=== PATIENT | male | born 1930 | race Caucasian/White ===

== ENCOUNTER 2016-11-05 14:48 | Emergency (ER) | payer MEDICARE, BC ==
[2016-11-05 14:58] VITALS: BP 104/77
[2016-11-05] MEDS ORDERED: HYDROmorphone 0.5 MG/0.5 ML Syringe IVPUSH ONE ×2 (15:04→17:20)
[2016-11-05] MEDS ORDERED: Sodium Chloride 0.9% 10 ML Syringe FLUSH PRN (15:04)
--- NOTE | 2016-11-05 16:32 | EDM.PDOC ---
ED HPI GENERAL MEDICAL PROBLEM - General Chief Complaint: Lower Extremity Injury/Pain Stated Complaint: [facility] Time Seen by Provider: 11/05/16 14:55 Source of Information: Reports: Patient, EMS, RN Notes Reviewed - History of Present Illness INITIAL COMMENTS - FREE TEXT/NARRATIVE: 85-year-old gentleman is been brought in by ambulance with severe right hip pain. He was trying to negotiate sitting into a chair and apparently missed the chair, hit the floor with resultant severe right hip pain. He's been unable to move the leg or stand since the fall. He was given 50 g of fentanyl IV while in route to the ED. Is not having a lot of pain as long as he doesn't try move the leg. He has no chest pain or difficulty breathing. He denies headache or LOC. No major neck or back discomfort. Looking at his medications he is on eloquis. Also on aspirin. Family states he has had some anemia problems in the past but that when checked at the clinic just last week his blood level was "good". Right Hip Pain Score (Numeric/FACES): 8 - Related Data Allergies Allergy/AdvReac Type Severity Reaction Status Date / Time No Known Allergies Allergy Verified 11/05/16 14:59 Home Meds: Home Meds Albuterol Sulfate [Proair Respiclick] 2 puff INH Q6H PRN 04/13/15 [History] Aspirin [Low Dose Aspirin EC] 81 mg PO DAILY 04/13/15 [History] DULoxetine [Cymbalta] 60 mg PO DAILY 04/13/15 [History] Docusate Sodium [Colace] 100 mg PO BID 04/13/15 [History] Ferrous Sulfate 325 mg PO DAILY 04/13/15 [History] Pantoprazole [ProTONIX] 40 mg PO DAILY 04/13/15 [History] Vitamin E 1 tab PO DAILY 04/13/15 [History] glipiZIDE [Glucotrol XL] 10 mg PO BID 04/13/15 [History] Apixaban [Eliquis] 5 mg PO BID 09/08/15 [History] Propylene Glycol/Peg 400 [Systane 0.3-0.4% Eye Drops] 1 drop EYEBOTH DAILY 09/07 [History] Tamsulosin [Flomax] 0.4 mg PO DAILY 05/19/16 [History] Metoprolol Succinate 25 mg PO DAILY 01/30/16 [History] Acetaminophen 650 mg PO Q6H PRN 11/05/16 [History] Calcium Carbonate/Vitamin D3 [Calcium 500-Vit D3 200 Caplet] 1 tab PO DAILY [History] Diltiazem [Cardizem CD] 180 mg PO DAILY 11/05/16 [History] metFORMIN [Glucophage] 250 mg PO BIDMEALS 11/05/16 [History] Past Medical History HEENT History: Reports: Cataract, Impaired Vision Cardiovascular History: Reports: Arrhythmia, Hypertension, [place] Respiratory History: Reports: Asthma, Bronchitis, Recurrent, COPD, Pneumonia, Recurrent Gastrointestinal History: Reports: Hemorrhoids Genitourinary History: Reports: Renal Calculus Musculoskeletal History: Reports: Arthritis, Back Pain, Chronic Neurological History: Reports: CVA Psychiatric History: Reports: Depression Endocrine/Metabolic History: Reports: Diabetes, Type II Hematologic History: Reports: Anemia - Past Surgical History GI Surgical History: Reports: Cholecystectomy Social & Family History - Family History Family Medical History: Noncontributory - Tobacco Use Smoking Status *Q: Never Smoker Years of Tobacco use: 50 Packs/Tins Daily: 1 Used Tobacco, but Quit: Yes Month Tobacco Last Used: 1969 Second Hand Smoke Exposure: No - Caffeine Use Caffeine Use: Reports: None - Recreational Drug Use Recreational Drug Use: No - Living Situation & Occupation Living situation: Reports: Alone, Assisted Living Review of Systems - Review of Systems Review Of Systems: See Below Mouth/Throat: Reports: No Symptoms Respiratory: Denies: Shortness of Breath, Pleuritic Chest Pain Cardiovascular: Denies: Chest Pain GI/Abdominal: Denies: Abdominal Pain, Nausea, Vomiting Musculoskeletal: Reports: Joint Pain (Right hip) Skin: Reports: Bruising (He does have some areas of chronic bruising on his arms ) Neurological: Reports: No Symptoms ED EXAM, GENERAL - Physical Exam Exam: See Below General Appearance: Alert, Mild Distress Eye Exam: Bilateral Eye: PERRL Throat/Mouth: Normal Inspection, Normal Oropharynx Head: Atraumatic. No: Facial Swelling Neck: Supple, Full Range of Motion Respiratory/Chest: No Respiratory Distress, Lungs Clear, Normal Breath Sounds, Chest Non-Tender Cardiovascular: Irregularly Irregular GI/Abdominal: Soft, Non-Tender. No: Guarding Back Exam: No: CVA Tenderness (L), CVA Tenderness (R) Extremities: Leg Pain (Tender right hip), Limited Range of Motion (Severe pain with motion right lower extremity) Neurological: Alert, Oriented, No Motor/Sensory Deficits Skin Exam: Warm, Dry, Pallor EKG INTERPRETATION EKG Date: 11/05/16 Rhythm: A-Fib QRS: RBBB ST-T: Other (T-wave inversions V2) Course - Vital Signs Last Recorded V/S: Last Vital Signs Temp 97.1 F 11/05/16 14:53 Pulse 95 11/05/16 14:53 Resp 16 11/05/16 14:53 BP 104/77 11/05/16 14:53 Pulse Ox 96 11/05/16 14:53 - Orders/Labs/Meds Orders: Active Orders 24 hr Category Date Time Status EKG 12 Lead [EKG Documentation Completion] [RC] STAT Care 11/05/16 15:03 Active Peripheral IV Care [RC] . DIRECTED Care 11/05/16 15:04 Active Chest 1V Frontal [CR] Stat Exams 11/05/16 15:03 Taken Hip Min 2V or 3V w Pelvis Rt [CR] Stat Exams 11/05/16 15:05 Taken PATIENT RETYPE [BBK] Stat Lab 11/05/16 15:35 Results TYPE AND SCREEN [BBK] Stat Lab 11/05/16 15:35 Results Sodium Chloride 0.9% [Saline Flush] Med 11/05/16 15:04 Active 10 ml FLUSH ASDIRECTED PRN Peripheral IV Insertion Adult [OM.PC] Stat Oth 11/05/16 15:04 Ordered Medication Orders Sodium Chloride (Saline Flush) 10 ml FLUSH ASDIRECTED PRN PRN Reason: Keep Vein Open Last Admin: 11/05/16 15:20 Dose: 10 ml Labs: Laboratory Tests 11/05/16 11/05/16 11/05/16 Range/Units 15:35 15:35 15:35 WBC 11.66 H (4.23-9.07) K/mm3 RBC 2.52 L (4.63-6.08) M/mm3 Hgb 8.7 L (13.7-17.5) gm/L Hct 26.1 L (40.1-51.0) % MCV 103.6 H (79.0-92.2) fl MCH 34.5 H (25.7-32.2) pg MCHC 33.3 (32.2-35.5) g/dl RDW Std Deviation 72.4 H (35.1-43.9) fL Plt Count 228 (163-337) K/mm3 MPV 11.2 (9.4-12.3) fl Neut % (Auto) 74.8 H (34.0-67.9) % Lymph % (Auto) 17.6 L (21.8-53.1) % [place] % (Auto) 5.5 (5.3-12.2) % Eos % (Auto) 1.2 (0.8-7.0) Baso % (Auto) 0.3 (0.1-1.2) % Neut # (Auto) 8.72 H (1.78-5.38) K/mm3 Lymph # (Auto) 2.05 (1.32-3.57) K/mm3 [place] # (Auto) 0.64 (0.30-0.82) K/mm3 Eos # (Auto) 0.14 (0.04-0.54) K/mm3 Baso # (Auto) 0.04 (0.01-0.08) K/mm3 Manual Slide Review Abnormal smear PT 11.8 (8.0-13.0) SECONDS INR 1.08 APTT (22-36) SECONDS Sodium 138 (136-145) mEq/L Potassium 5.1 (3.5-5.1) mEq/L Chloride 104 (98-107) mEq/L Carbon Dioxide 29 (21-32) mEq/L Anion Gap 10.1 (5-15) BUN 16 (7-18) mg/dL Creatinine 1.2 (0.7-1.3) mg/dL Est Cr Clr Drug Dosing 41.35 mL/min Estimated GFR (MDRD) 58 (>60) mL/min BUN/Creatinine Ratio 13.3 L (14-18) Glucose 196 H (83-115) mg/dL Calcium 8.5 (8.5-10.1) mg/dL Total Bilirubin 1.0 (0.2-1.0) mg/dL AST 14 L (15-37) U/L ALT 17 (16-63) U/L Alkaline Phosphatase 65 (46-116) U/L Total Protein 6.2 L (6.4-8.2) g/dl Albumin 3.9 (3.4-5.0) g/dl Globulin 2.3 gm/dL Albumin/Globulin Ratio 1.7 (1-2) Blood Type Gel Antibody Screen 11/05/16 11/05/16 Range/Units 15:35 15:35 WBC (4.23-9.07) K/mm3 RBC (4.63-6.08) M/mm3 Hgb (13.7-17.5) gm/L Hct (40.1-51.0) % MCV (79.0-92.2) fl MCH (25.7-32.2) pg MCHC (32.2-35.5) g/dl RDW Std Deviation (35.1-43.9) fL Plt Count (163-337) K/mm3 MPV (9.4-12.3) fl Neut % (Auto) (34.0-67.9) % Lymph % (Auto) (21.8-53.1) % [place] % (Auto) (5.3-12.2) % Eos % (Auto) (0.8-7.0) Baso % (Auto) (0.1-1.2) % Neut # (Auto) (1.78-5.38) K/mm3 Lymph # (Auto) (1.32-3.57) K/mm3 [place] # (Auto) (0.30-0.82) K/mm3 Eos # (Auto) (0.04-0.54) K/mm3 Baso # (Auto) (0.01-0.08) K/mm3 Manual Slide Review PT (8.0-13.0) SECONDS INR APTT 24 (22-36) SECONDS Sodium (136-145) mEq/L Potassium (3.5-5.1) mEq/L Chloride (98-107) mEq/L Carbon Dioxide (21-32) mEq/L Anion Gap (5-15) BUN (7-18) mg/dL Creatinine (0.7-1.3) mg/dL Est Cr Clr Drug Dosing mL/min Estimated GFR (MDRD) (>60) mL/min BUN/Creatinine Ratio (14-18) Glucose (83-115) mg/dL Calcium (8.5-10.1) mg/dL Total Bilirubin (0.2-1.0) mg/dL AST (15-37) U/L ALT (16-63) U/L Alkaline Phosphatase (46-116) U/L Total Protein (6.4-8.2) g/dl Albumin (3.4-5.0) g/dl Globulin gm/dL Albumin/Globulin Ratio (1-2) Blood Type A POSITIVE Gel Antibody Screen Negative Meds: Medications Generic Name Dose Route Start Last Admin Trade Name Freq PRN Reason Stop Dose Admin Sodium Chloride 10 ml 11/05/16 15:04 11/05/16 15:20 Saline Flush FLUSH 10 ml ASDIRECTED PRN Administration Keep Vein Open Discontinued Medications Generic Name Dose Route Start Last Admin Trade Name Freq PRN Reason Stop Dose Admin Hydromorphone HCl 0.25 mg 11/05/16 15:04 11/05/16 15:20 Dilaudid IVPUSH 11/05/16 15:05 0.25 mg ONETIME ONE Administration Hydromorphone HCl 0.25 mg 11/05/16 17:20 11/05/16 17:36 Dilaudid IVPUSH 11/05/16 17:21 0.25 mg ONETIME ONE Administration Sodium Chloride 500 mls @ 999 mls/hr 11/05/16 17:00 11/05/16 17:06 Normal Saline IV 11/05/16 17:30 999 mls/hr .BOLUS ONE Administration - Re-Assessments/Exams Free Text/Narrative Re-Assessment/Exam: 11/05/16 16:39 X-rays do show fracture of the right hip, intertrochanteric, comminuted. Hemoglobin has come back at 8.7. He is on eloquis, for his chronic atrial fibrillation. Family as noted states he has had some anemia problems in the past. Unclear at this time what the etiology of his anemia is. 17:00. I have discussed this with Dr. River, or Orthopedist. He is able and willing to do the surgery here. Our hospitalist electronics technology department chair has discussed with family his multiple medical problems will create more challenge from a medical standpoint. Of concern is the combination of severe anemia, chronic atrial fib on chronic blood thinner therapy. Because we do not have multispecialty services available here at this hospital family has chosen they would prefer to have this done at one of the [facility]. When asked which hospital the patient is choosing [facility] because [facility]". 11/05/16 17:48 Departure - Departure Time of Disposition: 16:42 Disposition: Admitted As Inpatient 67 Condition: Serious Clinical Impression: Intertrochanteric fracture, hip Atrial fibrillation Qualifiers: Atrial fibrillation type: chronic Qualified Code(s): I48.2 - Chronic atrial fibrillation Anemia Qualifiers: Anemia type: unspecified type Qualified Code(s): D64.9 - Anemia, unspecified - Discharge Information Referrals: Juma Turner MD [Primary Care Provider] - Forms: ED Department Discharge - My Orders Last 24 Hours: My Active Orders 11/05/16 15:03 EKG 12 Lead [EKG Documentation Completion] [RC] STAT Chest 1V Frontal [CR] Stat 11/05/16 15:04 Peripheral IV Care [RC] . DIRECTED Sodium Chloride 0.9% [Saline Flush] 10 ml FLUSH ASDIRECTED PRN Peripheral IV Insertion Adult [OM.PC] Stat 11/05/16 15:05 Hip Min 2V or 3V w Pelvis Rt [CR] Stat 11/05/16 15:35 PATIENT RETYPE [BBK] Stat TYPE AND SCREEN [BBK] Stat - Assessment/Plan Last 24 Hours: My Active Orders 11/05/16 15:03 EKG 12 Lead [EKG Documentation Completion] [RC] STAT Chest 1V Frontal [CR] Stat 11/05/16 15:04 Peripheral IV Care [RC] . DIRECTED Sodium Chloride 0.9% [Saline Flush] 10 ml FLUSH ASDIRECTED PRN Peripheral IV Insertion Adult [OM.PC] Stat 11/05/16 15:05 Hip Min 2V or 3V w Pelvis Rt [CR] Stat 11/05/16 15:35 PATIENT RETYPE [BBK] Stat TYPE AND SCREEN [BBK] Stat
[2016-11-05] MEDS ORDERED: Sodium Chloride 0.9% 500 ML IV ONE (17:00)
[2016-11-05] MEDS ORDERED: Ondansetron 4 MG/2 ML SDV IVPUSH ONE (18:05)
[2016-11-05] MEDS ORDERED: Ondansetron 4 MG/2 ML SDV ONE (18:08)
--- NOTE | 2016-11-06 08:06 | CR ---
Pelvis and right hip: AP view of the pelvis was obtained as well as AP and frog-leg lateral views of the right hip. Comparison: No previous pelvis or hip exam. Angulated intertrochanteric fracture is seen. Degenerative change is partially visualized within the lower lumbar spine. Bony structures are osteopenic. Vascular calcification is noted. Surgical clips are seen within the right pelvis overlying the right iliac wing. Impression: 1. Angulated intertrochanteric fracture within the right hip. 2. Other incidental findings. Diagnostic code #3
--- NOTE | 2016-11-06 08:06 | CR ---
Chest: Frontal view of the chest was obtained. Comparison: Previous chest x-ray of 09/08/15. Heart size is normal. Tortuous thoracic aorta is seen. Nodular density is noted within the left base. Lungs otherwise are clear. Bony structures are grossly intact. Impression: 1. Nodule within the left base possibly due to nodular scarring. 2. Nothing acute is appreciated. Diagnostic code #2
== END 2016-11-05 18:20 ==
LOC: JD.ED 14:48
DX: S72.141A Displaced intertrochanteric fracture of right femur, initial encounter for closed fracture (principal); I48.2 Chronic atrial fibrillation; D64.9 Anemia, unspecified; I10 Essential (primary) hypertension; I25.2 Old myocardial infarction; J45.909 Unspecified asthma, uncomplicated; J44.9 Chronic obstructive pulmonary disease, unspecified; Z87.01 Personal history of pneumonia (recurrent); E11.9 Type 2 diabetes mellitus without complications; Z90.49 Acquired absence of other specified parts of digestive tract; Z79.82 Long term (current) use of aspirin; Z79.899 Other long term (current) drug therapy; Z79.84 Long term (current) use of oral hypoglycemic drugs; W01.190A Fall on same level from slipping, tripping and stumbling with subsequent striking against furniture, initial encounter
CPT/HCPCS: 36415; 71010; 73502; 80053; 85025; 85610; 85730; 86850; 86900; 86901; 93005; 96374; 96375; 96376; 99285; J1170; J2405; J7040; J7050; 99284

== ENCOUNTER 2016-12-08 13:22 | Inpatient (IN) | payer MEDICARE, BC ==
[2016-12-08] MEDS ORDERED: Sodium Chloride 0.9% 10 ML Syringe FLUSH PRN (13:51)
[2016-12-08] MEDS ORDERED: Levofloxacin/Dextrose 5%-Water 750 MG in Premix Bag 1 BAG IV ONE (15:42)
--- NOTE | 2016-12-08 15:44 | EDM.PDOC ---
ED HPI GENERAL MEDICAL PROBLEM - General Chief Complaint: Respiratory Problem Stated Complaint: [facility] Time Seen by Provider: 12/08/16 13:31 Source of Information: Reports: Patient History Limitations: Reports: No Limitations - History of Present Illness INITIAL COMMENTS - FREE TEXT/NARRATIVE: The patient presents with a cough and shortness of breath from [facility]. He fell last month and had a hip fracture that was repaired at [facility] in [place]. He has been at [facility] after that. He has been anemic and he has required transfusions since admission. The last one was on . He has been coughing for a few days and he has been more short of breath. When EMS got to [facility] his oxygen saturations were 88% on room air. They did give him a breathing treatment and it improved slightly. He has no abdominal pain, nausea, vomiting, fever or chills. Onset: Gradual Duration: Day(s): (2) Severity: Moderate Improves with: Reports: None Worsens with: Reports: None Associated Symptoms: Reports: Cough, cough w sputum, Shortness of Breath. Denies: Chest Pain, Fever/Chills Right Leg Pain Score (Numeric/FACES): 8 - Related Data Allergies Allergy/AdvReac Type Severity Reaction Status Date / Time No Known Allergies Allergy Verified 12/08/16 13:41 Home Meds: Home Meds Albuterol Sulfate [Proair Respiclick] 2 puff INH TID 04/13/15 [History] Aspirin [Low Dose Aspirin EC] 81 mg PO DAILY 04/13/15 [History] DULoxetine [Cymbalta] 60 mg PO DAILY 04/13/15 [History] Docusate Sodium [Colace] 200 mg PO BID 04/13/15 [History] Ferrous Sulfate 324 mg PO DAILY 04/13/15 [History] Pantoprazole [ProTONIX] 40 mg PO DAILY 04/13/15 [History] Vitamin E 1 tab PO DAILY 04/13/15 [History] glipiZIDE [Glucotrol XL] 5 mg PO ACBREAKFAST 04/13/15 [History] Propylene Glycol/Peg 400 [Systane 0.3-0.4% Eye Drops] 1 drop EYEBOTH BID [History] Tamsulosin [Flomax] 0.4 mg PO DAILY 09/08/15 [History] Metoprolol Succinate 25 mg PO DAILY 01/30/16 [History] Acetaminophen 650 mg PO Q6H PRN 11/05/16 [History] Diltiazem [Cardizem CD] 180 mg PO DAILY 11/05/16 [History] metFORMIN [Glucophage] 250 mg PO BIDMEALS 11/05/16 [History] traMADol [Ultram] 50 mg PO Q6H PRN 12/06/16 [History] Apixaban [Eliquis] 5 mg PO BID 12/08/16 [History] Gabapentin [Neurontin] 300 mg PO DAILY 12/08/16 [History] Polyethylene Glycol 3350 [MiraLAX] 17 gm PO DAILY 12/08/16 [History] traMADol [Ultram] 50 mg PO Q8HR 12/08/16 [History] Past Medical History HEENT History: Reports: Cataract, Impaired Vision Cardiovascular History: Reports: Afib, Angina, Arrhythmia, Hypertension, [place], Other (See Below) Other Cardiovascular History: Nonrheumatic aortic valve disorder, atherosclerotic heart disease Respiratory History: Reports: Asthma, Bronchitis, Recurrent, COPD, Pneumonia, Recurrent Gastrointestinal History: Reports: GERD, Hemorrhoids Genitourinary History: Reports: BPH, Renal Calculus, Renal Disease Musculoskeletal History: Reports: Arthritis, Back Pain, Chronic, Fracture, Osteoarthritis Neurological History: Reports: CVA Psychiatric History: Reports: Depression Endocrine/Metabolic History: Reports: Diabetes, Type II Hematologic History: Reports: Anemia, Iron Deficiency - Past Surgical History GI Surgical History: Reports: Appendectomy, Cholecystectomy Musculoskeletal Surgical History: Reports: Other (See Below) Other Musculoskeletal Surgeries/Procedures:: femur fx surgery Social & Family History - Family History Family Medical History: Noncontributory - Tobacco Use Smoking Status *Q: Former Smoker Years of Tobacco use: 40 Packs/Tins Daily: 1 Used Tobacco, but Quit: Yes Month Tobacco Last Used: 1979 Second Hand Smoke Exposure: No - Caffeine Use Caffeine Use: Reports: Coffee, Soda, Other Other Caffeine Use: diet soda - Recreational Drug Use Recreational Drug Use: No - Living Situation & Occupation Living situation: Reports: Alone, Assisted Living ED ROS GENERAL - Review of Systems Review Of Systems: See Below Constitutional: Reports: No Symptoms HEENT: Reports: No Symptoms Respiratory: Reports: Shortness of Breath, Cough, Sputum Cardiovascular: Reports: No Symptoms Endocrine: Reports: No Symptoms GI/Abdominal: Reports: No Symptoms : Reports: No Symptoms Musculoskeletal: Reports: No Symptoms Skin: Reports: No Symptoms ED EXAM, GENERAL - Physical Exam Exam: See Below Exam Limited By: No Limitations General Appearance: Alert, No Apparent Distress Ears: Normal External Exam Nose: Normal Inspection Head: Atraumatic, Normocephalic Neck: Normal Inspection Respiratory/Chest: No Respiratory Distress, Rhonchi Cardiovascular: Regular Rate, Rhythm, No Murmur GI/Abdominal: Soft, Non-Tender, No Organomegaly, No Mass Rectal (Males) Exam: Heme - Stool Back Exam: Normal Inspection Extremities: Other (Bilateral lower leg edema) Neurological: Alert, Oriented, No Motor/Sensory Deficits Course - Vital Signs Last Recorded V/S: Last Vital Signs Temp 97.4 F 12/08/16 13:33 Pulse 120 H 12/08/16 13:33 Resp 26 H 12/08/16 13:33 BP 118/79 12/08/16 13:33 Pulse Ox 94 L 12/08/16 15:10 - Orders/Labs/Meds Orders: Active Orders 24 hr Category Date Time Status Cardiac Monitoring [RC] . DIRECTED Care 12/08/16 13:51 Active Oxygen Therapy [RC] PRN Care 12/08/16 13:51 Active Peripheral IV Care [RC] . DIRECTED Care 12/08/16 13:53 Active Chest 1V Frontal [CR] Stat Exams 12/08/16 14:12 Taken CULTURE BLOOD [BC] Stat Lab 12/08/16 14:10 Received CULTURE BLOOD [BC] Stat Lab 12/08/16 14:25 Received UA W/MICROSCOPIC [URIN] Stat Lab 12/08/16 13:51 Uncollected Levofloxacin/Dextrose 5%-Water [Levaquin in D5W 750 MG/ Med 12/08/16 15:42 Active 150 ML] 750 mg Premix Bag 1 bag IV ONETIME Sodium Chloride 0.9% [Saline Flush] Med 12/08/16 13:51 Active 10 ml FLUSH ASDIRECTED PRN Blood Culture x2 Reflex Set [OM.PC] Stat Oth 12/08/16 13:54 Ordered Peripheral IV Insertion Adult [OM.PC] Stat Oth 12/08/16 13:51 Ordered Medication Orders Levofloxacin/Dextrose 750 mg/ (Premix) 150 mls @ 100 mls/hr IV ONETIME ONE Stop: 12/08/16 17:11 Sodium Chloride (Saline Flush) 10 ml FLUSH ASDIRECTED PRN PRN Reason: Keep Vein Open Labs: Laboratory Tests 12/08/16 12/08/16 Range/Units 14:10 14:10 WBC 10.79 H (4.23-9.07) K/mm3 RBC 3.63 L (4.63-6.08) M/mm3 Hgb 11.0 L (13.7-17.5) gm/L Hct 34.2 L (40.1-51.0) % MCV 94.2 H (79.0-92.2) fl MCH 30.3 (25.7-32.2) pg MCHC 32.2 (32.2-35.5) g/dl RDW Std Deviation 70.4 H (35.1-43.9) fL Plt Count 176 (163-337) K/mm3 MPV 10.7 (9.4-12.3) fl Neut % (Auto) 70.8 H (34.0-67.9) % Lymph % (Auto) 18.8 L (21.8-53.1) % [place] % (Auto) 8.7 (5.3-12.2) % Eos % (Auto) 0.9 (0.8-7.0) Baso % (Auto) 0.3 (0.1-1.2) % Neut # (Auto) 7.64 H (1.78-5.38) K/mm3 Lymph # (Auto) 2.03 (1.32-3.57) K/mm3 [place] # (Auto) 0.94 H (0.30-0.82) K/mm3 Eos # (Auto) 0.10 (0.04-0.54) K/mm3 Baso # (Auto) 0.03 (0.01-0.08) K/mm3 Sodium 136 (136-145) mEq/L Potassium 4.2 (3.5-5.1) mEq/L Chloride 99 (98-107) mEq/L Carbon Dioxide 29 (21-32) mEq/L Anion Gap 12.2 (5-15) BUN 19 H (7-18) mg/dL Creatinine 1.1 (0.7-1.3) mg/dL Est Cr Clr Drug Dosing 43.48 mL/min Estimated GFR (MDRD) > 60 (>60) mL/min BUN/Creatinine Ratio 17.3 (14-18) Glucose 172 H (83-115) mg/dL Calcium 9.0 (8.5-10.1) mg/dL Total Bilirubin 2.1 H (0.2-1.0) mg/dL AST 18 (15-37) U/L ALT 16 (16-63) U/L Alkaline Phosphatase 127 H (46-116) U/L Troponin I < 0.017 (0.00-0.056) ng/mL [id number] Pept 1956 H (0-450) pg/mL Total Protein 6.6 (6.4-8.2) g/dl Albumin 3.5 (3.4-5.0) g/dl Globulin 3.1 gm/dL Albumin/Globulin Ratio 1.1 (1-2) Meds: Medications Generic Name Dose Route Start Last Admin Trade Name Freq PRN Reason Stop Dose Admin Levofloxacin/Dextrose 750 mg/ 150 mls @ 100 mls/hr 12/08/16 15:42 Premix IV 12/08/16 17:11 ONETIME ONE Sodium Chloride 10 ml 12/08/16 13:51 Saline Flush FLUSH ASDIRECTED PRN Keep Vein Open - Re-Assessments/Exams Free Text/Narrative Re-Assessment/Exam: 12/08/16 15:58 I ordered oxygen, labs, blood cultures and CXR. 12/08/16 16:01 His CXR shows an infiltrate in the RML. His WBC was elevated at 10.79. His glucose was elevated at 172. His total bili was 2.1. His alk phos is elevated at 127. His troponin is negative. His BNP was elevated at 1956. I ordered levaquin at 750g IV. I feel he needs to be admitted. I called Dr Martinez and she agreed to the admission. She also wanted zosyn so I put that order in. Departure - Departure Time of Disposition: 16:05 Disposition: Admitted As Inpatient 67 Clinical Impression: Hypoxia Pneumonia Qualifiers: Pneumonia type: due to unspecified organism Laterality: right Lung location: middle lobe of lung Qualified Code(s): J18.9 - Pneumonia, unspecified organism Anemia Qualifiers: Anemia type: unspecified type Qualified Code(s): D64.9 - Anemia, unspecified - Discharge Information Forms: ED Department Discharge - My Orders Last 24 Hours: My Active Orders 12/08/16 13:51 Cardiac Monitoring [RC] . DIRECTED Oxygen Therapy [RC] PRN UA W/MICROSCOPIC [URIN] Stat Sodium Chloride 0.9% [Saline Flush] 10 ml FLUSH ASDIRECTED PRN Peripheral IV Insertion Adult [OM.PC] Stat 12/08/16 13:53 Peripheral IV Care [RC] . DIRECTED 12/08/16 13:54 Blood Culture x2 Reflex Set [OM.PC] Stat 12/08/16 14:10 CULTURE BLOOD [BC] Stat 12/08/16 14:12 Chest 1V Frontal [CR] Stat 12/08/16 14:25 CULTURE BLOOD [BC] Stat 12/08/16 15:42 Levofloxacin/Dextrose 5%-Water [Levaquin in D5W 750 MG/150 ML] 750 mg Premix Bag 1 bag IV ONETIME - Assessment/Plan Last 24 Hours: My Active Orders 12/08/16 13:51 Cardiac Monitoring [RC] . DIRECTED Oxygen Therapy [RC] PRN UA W/MICROSCOPIC [URIN] Stat Sodium Chloride 0.9% [Saline Flush] 10 ml FLUSH ASDIRECTED PRN Peripheral IV Insertion Adult [OM.PC] Stat 12/08/16 13:53 Peripheral IV Care [RC] . DIRECTED 12/08/16 13:54 Blood Culture x2 Reflex Set [OM.PC] Stat 12/08/16 14:10 CULTURE BLOOD [BC] Stat 12/08/16 14:12 Chest 1V Frontal [CR] Stat 12/08/16 14:25 CULTURE BLOOD [BC] Stat 12/08/16 15:42 Levofloxacin/Dextrose 5%-Water [Levaquin in D5W 750 MG/150 ML] 750 mg Premix Bag 1 bag IV ONETIME
[2016-12-08] MEDS ORDERED: Piperacillin/Tazobactam 4.5 GM in Sodium Chloride 0.9% 100 ML IV ONE (15:51)
[2016-12-08] MEDS ORDERED: Levalbuterol HCl 1.25 MG/3 ML Neb NEB PRN (16:53)
[2016-12-08] MEDS ORDERED: Albuterol 0.083% 2.5 MG/3 ML Neb Soln NEB PRN (16:54)
[2016-12-08] MEDS ORDERED: 50% Dextrose in Water 50 ML Syringe IVPUSH PRN (17:05)
[2016-12-08] MEDS ORDERED: Furosemide 20 MG/2 ML VIAL IVPUSH ONE (17:15)
--- NOTE | 2016-12-08 17:18 | PCM.HP ---
H&P History of Present Illness - General Date of Service: 12/08/16 Source of Information: Patient, Family, Provider History Limitations: Reports: No Limitations - History of Present Illness Initial Comments - Free Text/Narative: 85 year old male with SOB associated with productive cough. SOB when lying flat , denies PND. Sedentary has had recent RLE surgery which was broken in three places. The procedure was performed in [place], he required three units of PRBCs after the surgery. Recently had two additional units of PRBCs this week. His last colonoscopy was performed over five years ago. CXR documents a RML, will be admitted and treated for HCAP/CHF and a request for an anemia work up will also be made. Onset of Symptoms: Reports: Gradual Duration of Symptoms: Reports: Day(s):, Getting Worse Location: Reports: Chest Improves with: Reports: Medication Worsens with: Reports: None Associated Symptoms: Reports: cough w sputum, Shortness of Breath Right Leg Pain Score (Numeric/FACES): 8 - Related Data Allergies/Adverse Reactions: Allergies Allergy/AdvReac Type Severity Reaction Status Date / Time No Known Allergies Allergy Verified 12/08/16 13:41 Home Medications: Home Meds Albuterol Sulfate [Proair Respiclick] 2 puff INH TID 04/13/15 [History] Aspirin [Low Dose Aspirin EC] 81 mg PO DAILY 04/13/15 [History] DULoxetine [Cymbalta] 60 mg PO DAILY 04/13/15 [History] Docusate Sodium [Colace] 200 mg PO BID 04/13/15 [History] Ferrous Sulfate 324 mg PO DAILY 04/13/15 [History] Pantoprazole [ProTONIX] 40 mg PO DAILY 04/13/15 [History] Vitamin E 1 tab PO DAILY 04/13/15 [History] glipiZIDE [Glucotrol XL] 5 mg PO ACBREAKFAST 04/13/15 [History] Propylene Glycol/Peg 400 [Systane 0.3-0.4% Eye Drops] 1 drop EYEBOTH BID [History] Tamsulosin [Flomax] 0.4 mg PO DAILY 09/08/15 [History] Metoprolol Succinate 25 mg PO DAILY 01/30/16 [History] Acetaminophen 650 mg PO Q6H PRN 11/05/16 [History] Diltiazem [Cardizem CD] 180 mg PO DAILY 11/05/16 [History] metFORMIN [Glucophage] 250 mg PO BIDMEALS 11/05/16 [History] traMADol [Ultram] 50 mg PO Q6H PRN 12/06/16 [History] Apixaban [Eliquis] 5 mg PO BID 12/08/16 [History] Gabapentin [Neurontin] 300 mg PO DAILY 12/08/16 [History] Polyethylene Glycol 3350 [MiraLAX] 17 gm PO DAILY 12/08/16 [History] traMADol [Ultram] 50 mg PO Q8HR 12/08/16 [History] Past Medical History HEENT History: Reports: Cataract, Impaired Vision Cardiovascular History: Reports: Afib, Angina, Arrhythmia, Hypertension, [place], Other (See Below) Other Cardiovascular History: Nonrheumatic aortic valve disorder, atherosclerotic heart disease Respiratory History: Reports: Asthma, Bronchitis, Recurrent, COPD, Pneumonia, Recurrent Gastrointestinal History: Reports: GERD, Hemorrhoids Genitourinary History: Reports: BPH, Renal Calculus, Renal Disease Musculoskeletal History: Reports: Arthritis, Back Pain, Chronic, Fracture, Osteoarthritis Neurological History: Reports: CVA Psychiatric History: Reports: Depression Endocrine/Metabolic History: Reports: Diabetes, Type II Hematologic History: Reports: Anemia, Iron Deficiency - Past Surgical History GI Surgical History: Reports: Appendectomy, Cholecystectomy Musculoskeletal Surgical History: Reports: Other (See Below) Other Musculoskeletal Surgeries/Procedures:: femur fx surgery Social & Family History - Family History Family Medical History: Noncontributory - Tobacco Use Smoking Status *Q: Former Smoker Years of Tobacco use: 40 Packs/Tins Daily: 1 Used Tobacco, but Quit: Yes Month Tobacco Last Used: 1979 Second Hand Smoke Exposure: No - Caffeine Use Caffeine Use: Reports: Coffee, Soda, Other Other Caffeine Use: diet soda - Recreational Drug Use Recreational Drug Use: No - Living Situation & Occupation Living situation: Reports: Alone, Assisted Living H&P Review of Systems - Review of Systems: Review Of Systems: See Below General: Reports: Malaise, Weakness, Fatigue HEENT: Reports: No Symptoms Pulmonary: Reports: Shortness of Breath, Wheezing, Cough, Sputum Cardiovascular: Reports: Lightheadedness Gastrointestinal: Reports: No Symptoms Genitourinary: Reports: No Symptoms Musculoskeletal: Reports: No Symptoms Skin: Reports: No Symptoms Psychiatric: Reports: No Symptoms Neurological: Reports: No Symptoms Hematologic/Lymphatic: Reports: No Symptoms Immunologic: Reports: No Symptoms Exam - Exam Exam: See Below - Vital Signs Vital Signs: Last Vital Signs Temp 36.3 C 12/08/16 13:33 Pulse 120 H 12/08/16 13:33 Resp 26 H 12/08/16 13:33 BP 118/79 12/08/16 13:33 Pulse Ox 88 L 12/08/16 15:56 Weight: 91.081 kg - Exam Quality Assessment: Supplemental Oxygen, DVT Prophylaxis General: Alert, Oriented, Cooperative HEENT: Conjunctiva Clear, Nares Patent, Normal Nasal Septum, Posterior Pharynx Clear, Pupils Equal, Pupils Reactive Neck: Supple, Trachea Midline Lungs: Decreased Breath Sounds, Wheezing Cardiovascular: Regular Rate, Irregular Rhythm GI/Abdominal Exam: Normal Bowel Sounds, Soft, Non-Tender, No Organomegaly, No Distention (Male) Exam: Deferred Rectal (Males) Exam: Deferred Back Exam: Normal Inspection Extremities: Normal Inspection, Non-Tender, Pedal Edema Skin: Warm, Dry, Intact Neurological: Cranial Nerves Intact, Normal Speech Neuro Extensive - Mental Status: Alert, Oriented x3, Normal Mood/Affect, Normal Cognition, Memory Intact Neuro Extensive - Motor, Sensory, Reflexes: CN II-XII Intact Psychiatric: Alert, Normal Affect, Normal Mood - Patient Data Lab Results Last 24 hrs: Laboratory Results - last 24 hr 12/08/16 Range/Units 16:20 Urine Color Dark yellow (Yellow) Urine Appearance Slt cloudy H (Clear) Urine pH 5.5 (5.0-8.0) Ur Specific [place] 1.025 (1.005-1.030) Urine Protein 1+ H (Negative) Urine Glucose (UA) Negative (Negative) Urine Ketones Negative (Negative) Urine Occult Blood Negative (Negative) Urine Nitrite Negative (Negative) Urine Bilirubin 2+ H (Negative) Urine Urobilinogen >=8.0 H (0.2-1.0) Ur Leukocyte Esterase Negative (Negative) Urine RBC 0-5 (0-5) /hpf Urine WBC 0-5 (0-5) /hpf Ur Epithelial Cells 0-5 (0-5) /hpf Calcium Oxalate Crystal Rare H (NONE) Urine Bacteria Rare (FEW) /hpf Urine Mucus Not seen (FEW) /hpf Result Diagrams: 12/08/16 14:10 12/08/16 14:10 *Q Meaningful Use (ADM) - VTE *Q VTE Criteria *Q: - Stroke *Q Stroke Criteria *Q: - AMI *Q AMI Criteria *Q: - Problem List (1) Hypertension SNOMED Code(s): 25259709 ICD Code: I10 - ESSENTIAL (PRIMARY) HYPERTENSION Status: Acute Current Visit: Yes (2) CAD (coronary artery disease) SNOMED Code(s): 37933608 ICD Code: I25.10 - ATHSCL HEART DISEASE OF [place] CORONARY ARTERY W/O ANG PCTRS Status: Acute Current Visit: Yes (3) Aortic valve disorder SNOMED Code(s): 8431397 ICD Code: I35.9 - NONRHEUMATIC AORTIC VALVE DISORDER, UNSPECIFIED Status: Acute Current Visit: Yes (4) Diabetes mellitus SNOMED Code(s): 14999202 ICD Code: E11.9 - TYPE 2 DIABETES MELLITUS WITHOUT COMPLICATIONS Status: Acute Current Visit: Yes (5) CVA (cerebral vascular accident) SNOMED Code(s): 433781802 ICD Code: I63.9 - CEREBRAL INFARCTION, UNSPECIFIED Status: Acute Current Visit: Yes (6) BPH (benign prostatic hyperplasia) SNOMED Code(s): 943759669, 757294122 ICD Code: N40.0 - BENIGN PROSTATIC HYPERPLASIA WITHOUT LOWER URINRY TRACT SYMP Status: Acute Current Visit: Yes (7) Anemia SNOMED Code(s): 379517712 ICD Code: D64.9 - ANEMIA, UNSPECIFIED Status: Acute Current Visit: Yes (8) Hypoxia SNOMED Code(s): 590145544, 557431467 ICD Code: R09.02 - HYPOXEMIA Status: Acute Current Visit: Yes (9) Pneumonia SNOMED Code(s): 990244300 ICD Code: J18.9 - PNEUMONIA, UNSPECIFIED ORGANISM Status: Acute Current Visit: Yes Qualifiers: Pneumonia type: due to unspecified organism (10) Atrial fibrillation SNOMED Code(s): 73023747 ICD Code: I48.91 - UNSPECIFIED ATRIAL FIBRILLATION Status: Acute Current Visit: No Qualifiers: Atrial fibrillation type: chronic Qualified Code(s): I48.2 - Chronic atrial fibrillation (11) COPD (chronic obstructive pulmonary disease) SNOMED Code(s): 12256717 ICD Code: J44.9 - CHRONIC OBSTRUCTIVE PULMONARY DISEASE, UNSPECIFIED Status : Chronic Priority: Medium Current Visit: No Qualifiers: Emphysema type: unspecified Problem List Initiated/Reviewed/Updated: Yes Orders Last 24hrs: Active Orders 24 hr Category Date Time Status Antiembolic Devices [RC] PER UNIT ROUTINE Care 12/08/16 16:45 Ordered Blood Glucose Check, Bedside [RC] QIDACANDBED Care 12/08/16 17:05 Ordered Notify Provider Consults [RC] ASDIRECTED Care 12/08/16 16:57 Ordered RT Aerosol Therapy [RC] ASDIRECTED Care 12/08/16 16:54 Ordered Vital Signs [RC] PER UNIT ROUTINE Care 12/08/16 16:45 Ordered Consult to Case Management [CONS] Routine Cons 12/08/16 17:02 Ordered Consult to Occupational Therapy [OT Evaluation and Cons 12/10/16 09:00 Ordered Treatment] [CONS] Routine Consult to Physical Therapy [PT Evaluation and Cons 12/10/16 11:00 Ordered Treatment] [CONS] Routine Consult to Physician [CONS] Routine Cons 12/08/16 16:56 Ordered Consistent Carbohydrate Diet [DIET] Diet 12/08/16 Dinner Ordered CXR [Chest 2V] [CR] Routine Exams 12/10/16 08:00 Ordered BMP [BASIC METABOLIC PANEL,BMP] [CHEM] DAILY Lab 12/09/16 05:00 Ordered BMP [BASIC METABOLIC PANEL,BMP] [CHEM] DAILY Lab 12/10/16 05:00 Ordered BMP [BASIC METABOLIC PANEL,BMP] [CHEM] DAILY Lab 12/11/16 05:00 Ordered BMP [BASIC METABOLIC PANEL,BMP] [CHEM] DAILY Lab 12/12/16 05:00 Ordered CBC WITH AUTO DIFF [HEME] DAILY Lab 12/09/16 05:00 Ordered CBC WITH AUTO DIFF [HEME] DAILY Lab 12/10/16 05:00 Ordered CBC WITH AUTO DIFF [HEME] DAILY Lab 12/11/16 05:00 Ordered CBC WITH AUTO DIFF [HEME] DAILY Lab 12/12/16 05:00 Ordered CRP [C-REACTIVE PROTEIN] [CHEM] DAILY Lab 12/09/16 05:00 Ordered CRP [C-REACTIVE PROTEIN] [CHEM] DAILY Lab 12/10/16 05:00 Ordered CRP [C-REACTIVE PROTEIN] [CHEM] DAILY Lab 12/11/16 05:00 Ordered CRP [C-REACTIVE PROTEIN] [CHEM] DAILY Lab 12/12/16 05:00 Ordered LACTIC ACID [CHEM] Routine Lab 12/09/16 05:00 Ordered MAGNESIUM [CHEM] DAILY Lab 12/09/16 05:00 Ordered MAGNESIUM [CHEM] DAILY Lab 12/10/16 05:00 Ordered MAGNESIUM [CHEM] DAILY Lab 12/11/16 05:00 Ordered MAGNESIUM [CHEM] DAILY Lab 12/12/16 05:00 Ordered METH-RESIST S.AUR,MRSA BY PCR [MOLEC] Routine Lab 12/08/16 16:55 Ordered PRO B-TYPE NATRIUR PEPT,BNPPRO [CHEM] Routine Lab 12/10/16 05:00 Ordered Acetaminophen [Tylenol] Med 12/08/16 16:48 Ordered 650 mg PO Q6H PRN Albuterol [Proventil Neb Soln] Med 12/08/16 16:54 Ordered 2.5 mg NEB Q4HRRT PRN Apixaban [Eliquis] Med 12/08/16 21:00 Ordered 2.5 mg PO BID Aspirin [Halfprin] Med 12/09/16 09:00 Ordered 81 mg PO DAILY DULoxetine Med 12/09/16 09:00 Ordered 60 mg PO DAILY Dextrose 50% in Water Med 12/08/16 17:05 Ordered 50 ml IVPUSH ASDIRECTED PRN Diltiazem [Cardizem CD] Med 12/09/16 09:00 Ordered 180 mg PO DAILY Docusate Sodium [Colace] Med 12/08/16 21:00 Ordered 200 mg PO BID Ferrous Sulfate Med 12/09/16 09:00 Ordered 324 mg PO DAILY Furosemide [Lasix] Med 12/08/16 16:53 Once 20 mg IVPUSH NOW ONE Gabapentin [Neurontin] Med 12/09/16 09:00 Ordered 300 mg PO DAILY Insulin Aspart [NovoLOG] Med 12/08/16 22:00 Ordered See Protocol SUBCUT QIDACANDBED Levalbuterol HCl [Xopenex] Med 12/08/16 16:53 Ordered 1.25 mg NEB QID PRN Levofloxacin/Dextrose 5%-Water [Levaquin in D5W 750 MG/ Med 12/09/16 16:00 Ordered 150 ML] 750 mg Premix Bag 1 bag IV Q24H Piperacillin/Tazobactam [Zosyn] 4.5 gm Med 12/08/16 23:00 Ordered Sodium Chloride 0.9% [Normal Saline] 100 ml IV Q8H WALKER Hose [Antiembolic Hose] [OM.PC] Routine Oth 12/08/16 16:45 Ordered Code Status [Resuscitation Status] Routine Resus Stat 12/08/16 16:45 Ordered Medication Orders Acetaminophen (Tylenol) 650 mg PO Q6H PRN PRN Reason: Pain Albuterol (Proventil Neb Soln) 2.5 mg NEB Q4HRRT PRN PRN Reason: Shortness of Breath Apixaban (Eliquis) 2.5 mg PO BID [facility] Aspirin (Halfprin) 81 mg PO DAILY [facility] Diltiazem HCl (Cardizem Cd) 180 mg PO DAILY [facility] Docusate Sodium (Colace) 200 mg PO BID [facility] Duloxetine HCl (Cymbalta) 60 mg PO DAILY [facility] Ferrous Sulfate (Ferrous Sulfate) 325 mg PO DAILY [facility] Furosemide (Lasix) 20 mg IVPUSH NOW ONE Stop: 12/08/16 17:16 Gabapentin (Neurontin) 300 mg PO DAILY [facility] Levofloxacin/Dextrose 750 mg/ (Premix) 150 mls @ 100 mls/hr IV ONETIME ONE Stop: 12/08/16 17:11 Last Admin: 12/08/16 17:00 Dose: 100 mls/hr Levofloxacin/Dextrose 750 mg/ (Premix) 150 mls @ 100 mls/hr IV Q24H [facility] Piperacillin Sod/Tazobactam (Sod 4.5 gm/ Sodium Chloride) 100 mls @ 25 mls/hr IV Q8H [facility] Levalbuterol HCl (Xopenex) 1.25 mg NEB QID PRN PRN Reason: Shortness of Breath Sodium Chloride (Saline Flush) 10 ml FLUSH ASDIRECTED PRN PRN Reason: Keep Vein Open Assessment/Plan Comment:: Impression: Healthcare Acquired PNA; RML; hypoxia RLE ortho procedure 11/06/16 in [place] Anemia, unspecified; 6 units PRBCs in 4 weeks; last transfusion 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
[2016-12-08] MEDS: Apixaban 5 MG Tab PO SCH (23:25)
[2016-12-08] MEDS: Docusate Sodium 100 MG Cap PO SCH (23:26)
[2016-12-08] MEDS: Insulin Aspart 100 Units/ML 3 ML Pen SUBCUT SCH (23:26)
[2016-12-08] MEDS: Piperacillin/Tazobactam 4.5 GM in Sodium Chloride 0.9% 100 ML IV SCH (23:27)
[2016-12-08] MEDS: Acetaminophen 325 MG Tab PO PRN (23:40)
[2016-12-09] MEDS: Insulin Aspart 100 Units/ML 3 ML Pen SUBCUT SCH ×4 (07:35→21:52)
[2016-12-09] MEDS ORDERED: Magnesium Sulfate/Water 2 GM in Premix Bag 1 BAG IV ONE (07:56)
--- NOTE | 2016-12-09 08:29 | PCM.PN ---
- General Info Date of Service: 12/09/16 Admission Dx/Problem (Free Text): HCAP Subjective Update: Follow Up Functional Status: Reports: Pain Controlled, Tolerating Diet, Ambulating, Urinating, New Symptoms (His coughing up more phlegm) - Review of Systems General: Denies: Fever, Chills HEENT: Reports: No Symptoms Pulmonary: Denies: Shortness of Breath Cardiovascular: Denies: Chest Pain Gastrointestinal: Denies: Abdominal Pain, Nausea, Vomiting Genitourinary: Reports: No Symptoms Musculoskeletal: Reports: No Symptoms Skin: Denies: Pruritis, Rash Neurological: Denies: Confusion, Difficulty Walking, Weakness, Gait Disturbance Psychiatric: Denies: Confusion, Anxiety, Hallucinations Systems Review Comment:: No significant overnight issues. He is feels about the same "so-so". He is now on RA sating at 92-95%. He has no new complaints. - Patient Data Vitals - Most Recent: Last Vital Signs Temp 36.4 C 12/09/16 02:34 Pulse 96 12/09/16 02:34 Resp 16 12/09/16 02:34 BP 112/78 12/09/16 02:34 Pulse Ox 98 12/09/16 08:22 Weight - Most Recent: 91.535 kg I&O - Last 24 Hours: Intake & Output 12/08/16 12/09/16 12/09/16 22:59 06:59 14:59 Intake Total 120 200 Balance 120 200 Lab Results Last 24 Hours: Laboratory Results - last 24 hr 12/08/16 12/08/16 12/08/16 Range/Units 16:20 17:00 17:45 WBC (4.23-9.07) K/mm3 RBC (4.63-6.08) M/mm3 Hgb (13.7-17.5) gm/L Hct (40.1-51.0) % MCV (79.0-92.2) fl MCH (25.7-32.2) pg MCHC (32.2-35.5) g/dl RDW Std Deviation (35.1-43.9) fL Plt Count (163-337) K/mm3 MPV (9.4-12.3) fl Neut % (Auto) (34.0-67.9) % Lymph % (Auto) (21.8-53.1) % [place] % (Auto) (5.3-12.2) % Eos % (Auto) (0.8-7.0) Baso % (Auto) (0.1-1.2) % Neut # (Auto) (1.78-5.38) K/mm3 Lymph # (Auto) (1.32-3.57) K/mm3 [place] # (Auto) (0.30-0.82) K/mm3 Eos # (Auto) (0.04-0.54) K/mm3 Baso # (Auto) (0.01-0.08) K/mm3 Sodium (136-145) mEq/L Potassium (3.5-5.1) mEq/L Chloride (98-107) mEq/L Carbon Dioxide (21-32) mEq/L Anion Gap (5-15) BUN (7-18) mg/dL Creatinine (0.7-1.3) mg/dL Est Cr Clr Drug Dosing mL/min Estimated GFR (MDRD) (>60) mL/min BUN/Creatinine Ratio (14-18) Glucose (83-115) mg/dL POC Glucose 118 H (83-110) mg/dL Lactic Acid (0.4-2.0) mmol/L Calcium (8.5-10.1) mg/dL Magnesium (1.8-2.4) mg/dl C-Reactive Protein (<1.0) mg/dL Urine Color Dark yellow (Yellow) Urine Appearance Slt cloudy H (Clear) Urine pH 5.5 (5.0-8.0) Ur Specific [place] 1.025 (1.005-1.030) Urine Protein 1+ H (Negative) Urine Glucose (UA) Negative (Negative) Urine Ketones Negative (Negative) Urine Occult Blood Negative (Negative) Urine Nitrite Negative (Negative) Urine Bilirubin 2+ H (Negative) Urine Urobilinogen >=8.0 H (0.2-1.0) Ur Leukocyte Esterase Negative (Negative) Urine RBC 0-5 (0-5) /hpf Urine WBC 0-5 (0-5) /hpf Ur Epithelial Cells 0-5 (0-5) /hpf Calcium Oxalate Crystal Rare H (NONE) Urine Bacteria Rare (FEW) /hpf Urine Mucus Not seen (FEW) /hpf MRSA (PCR) Negative 12/08/16 12/09/1612/09/17 Range/Units 21:02 05:55 06:39 WBC 7.97 (4.23-9.07) K/mm3 RBC 3.17 L (4.63-6.08) M/mm3 Hgb 9.7 L (13.7-17.5) gm/L Hct 29.9 L (40.1-51.0) % MCV 94.3 H (79.0-92.2) fl MCH 30.6 (25.7-32.2) pg MCHC 32.4 (32.2-35.5) g/dl RDW Std Deviation 68.2 H (35.1-43.9) fL Plt Count 151 L (163-337) K/mm3 MPV 10.2 (9.4-12.3) fl Neut % (Auto) 68.0 H (34.0-67.9) % Lymph % (Auto) 19.2 L (21.8-53.1) % [place] % (Auto) 10.3 (5.3-12.2) % Eos % (Auto) 2.0 (0.8-7.0) Baso % (Auto) 0.1 (0.1-1.2) % Neut # (Auto) 5.42 H (1.78-5.38) K/mm3 Lymph # (Auto) 1.53 (1.32-3.57) K/mm3 [place] # (Auto) 0.82 (0.30-0.82) K/mm3 Eos # (Auto) 0.16 (0.04-0.54) K/mm3 Baso # (Auto) 0.01 (0.01-0.08) K/mm3 Sodium (136-145) mEq/L Potassium (3.5-5.1) mEq/L Chloride (98-107) mEq/L Carbon Dioxide (21-32) mEq/L Anion Gap (5-15) BUN (7-18) mg/dL Creatinine (0.7-1.3) mg/dL Est Cr Clr Drug Dosing mL/min Estimated GFR (MDRD) (>60) mL/min BUN/Creatinine Ratio (14-18) Glucose (83-115) mg/dL POC Glucose 128 H 99 (83-110) mg/dL Lactic Acid (0.4-2.0) mmol/L Calcium (8.5-10.1) mg/dL Magnesium (1.8-2.4) mg/dl C-Reactive Protein (<1.0) mg/dL Urine Color (Yellow) Urine Appearance (Clear) Urine pH (5.0-8.0) Ur Specific [place] (1.005-1.030) Urine Protein (Negative) Urine Glucose (UA) (Negative) Urine Ketones (Negative) Urine Occult Blood (Negative) Urine Nitrite (Negative) Urine Bilirubin (Negative) Urine Urobilinogen (0.2-1.0) Ur Leukocyte Esterase (Negative) Urine RBC (0-5) /hpf Urine WBC (0-5) /hpf Ur Epithelial Cells (0-5) /hpf Calcium Oxalate Crystal (NONE) Urine Bacteria (FEW) /hpf Urine Mucus (FEW) /hpf MRSA (PCR) 12/09/16 12/09/16 Range/Units 06:39 06:39 WBC (4.23-9.07) K/mm3 RBC (4.63-6.08) M/mm3 Hgb (13.7-17.5) gm/L Hct (40.1-51.0) % MCV (79.0-92.2) fl MCH (25.7-32.2) pg MCHC (32.2-35.5) g/dl RDW Std Deviation (35.1-43.9) fL Plt Count (163-337) K/mm3 MPV (9.4-12.3) fl Neut % (Auto) (34.0-67.9) % Lymph % (Auto) (21.8-53.1) % [place] % (Auto) (5.3-12.2) % Eos % (Auto) (0.8-7.0) Baso % (Auto) (0.1-1.2) % Neut # (Auto) (1.78-5.38) K/mm3 Lymph # (Auto) (1.32-3.57) K/mm3 [place] # (Auto) (0.30-0.82) K/mm3 Eos # (Auto) (0.04-0.54) K/mm3 Baso # (Auto) (0.01-0.08) K/mm3 Sodium 136 (136-145) mEq/L Potassium 3.8 (3.5-5.1) mEq/L Chloride 99 (98-107) mEq/L Carbon Dioxide 30 (21-32) mEq/L Anion Gap 10.8 (5-15) BUN 17 (7-18) mg/dL Creatinine 1.0 (0.7-1.3) mg/dL Est Cr Clr Drug Dosing 47.83 mL/min Estimated GFR (MDRD) > 60 (>60) mL/min BUN/Creatinine Ratio 17.0 (14-18) Glucose 101 (83-115) mg/dL POC Glucose (83-110) mg/dL Lactic Acid 1.0 (0.4-2.0) mmol/L Calcium 8.5 (8.5-10.1) mg/dL Magnesium 1.7 L (1.8-2.4) mg/dl C-Reactive Protein 8.7 H* (<1.0) mg/dL Urine Color (Yellow) Urine Appearance (Clear) Urine pH (5.0-8.0) Ur Specific [place] (1.005-1.030) Urine Protein (Negative) Urine Glucose (UA) (Negative) Urine Ketones (Negative) Urine Occult Blood (Negative) Urine Nitrite (Negative) Urine Bilirubin (Negative) Urine Urobilinogen (0.2-1.0) Ur Leukocyte Esterase (Negative) Urine RBC (0-5) /hpf Urine WBC (0-5) /hpf Ur Epithelial Cells (0-5) /hpf Calcium Oxalate Crystal (NONE) Urine Bacteria (FEW) /hpf Urine Mucus (FEW) /hpf MRSA (PCR) Med Orders - Current: Current Medications Acetaminophen (Tylenol) 650 mg PO Q6H PRN PRN Reason: Pain Last Admin: 12/08/16 23:40 Dose: 650 mg Albuterol (Proventil Neb Soln) 2.5 mg NEB Q4HRRT PRN PRN Reason: Shortness of Breath Apixaban (Eliquis) 2.5 mg PO BID [facility] Last Admin: 12/08/16 23:25 Dose: 2.5 mg Aspirin (Halfprin) 81 mg PO DAILY [facility] Dextrose/Water (Dextrose 50% In Water) 50 ml IVPUSH ASDIRECTED PRN PRN Reason: Hypotension Diltiazem HCl (Cardizem Cd) 180 mg PO DAILY [facility] Docusate Sodium (Colace) 200 mg PO BID [facility] Last Admin: 12/08/16 23:26 Dose: 200 mg Duloxetine HCl (Cymbalta) 60 mg PO DAILY [facility] Ferrous Sulfate (Ferrous Sulfate) 325 mg PO DAILY [facility] Gabapentin (Neurontin) 300 mg PO DAILY [facility] Levofloxacin/Dextrose 750 mg/ (Premix) 150 mls @ 100 mls/hr IV Q24H [facility] Piperacillin Sod/Tazobactam (Sod 4.5 gm/ Sodium Chloride) 100 mls @ 25 mls/hr IV Q8H [facility] Last Admin: 12/08/16 23:27 Dose: 25 mls/hr Magnesium Sulfate 2 gm/ Premix 50 mls @ 25 mls/hr IV ONETIME ONE Stop: 12/09/16 09:55 Insulin Aspart (Novolog) 0 unit SUBCUT QIDACANDBED [facility] PRN Reason: Protocol Last Admin: 12/09/16 07:35 Dose: Not Given Levalbuterol HCl (Xopenex) 1.25 mg NEB QID PRN PRN Reason: Shortness of Breath Non-Formulary Medication (Albuterol Sulfate [Proair Respiclick]) 2 puff INH TID [facility] Sodium Chloride (Saline Flush) 10 ml FLUSH ASDIRECTED PRN PRN Reason: Keep Vein Open Discontinued Medications Furosemide (Lasix) 20 mg IVPUSH NOW ONE Stop: 12/08/16 17:16 Last Admin: 12/08/16 17:48 Dose: 20 mg Levofloxacin/Dextrose 750 mg/ (Premix) 150 mls @ 100 mls/hr IV ONETIME ONE Stop: 12/08/16 17:11 Last Admin: 12/08/16 17:00 Dose: 100 mls/hr Piperacillin Sod/Tazobactam (Sod 4.5 gm/ Sodium Chloride) 100 mls @ 200 mls/hr IV ONETIME ONE Stop: 12/08/16 16:20 Last Admin: 12/08/16 16:08 Dose: 200 mls/hr - Exam Quality Assessment: No: Supplemental Oxygen General: Alert, Oriented, Cooperative, No Acute Distress HEENT: Pupils Equal, Pupils Reactive, EOMI, Mucous Membr. Moist/[place] Neck: Supple, Trachea Midline Lungs: Normal Respiratory Effort, Decreased Breath Sounds, Rhonchi Cardiovascular: Irregular Rhythm GI/Abdominal Exam: Normal Bowel Sounds, Soft, Non-Tender, No Organomegaly, No Distention, No Abnormal Bruit, No Mass (Male) Exam: Deferred Back Exam: Normal Inspection, Decreased Range of Motion Extremities: Normal Inspection, Normal Range of Motion, Non-Tender, No Pedal Edema, Normal Capillary Refill Peripheral Pulses: 2+: Dorsalis Pedis (L), Dorsalis Pedis (R) Skin: Warm, Dry, Intact Neurological: No New Focal Deficit Psy/Mental Status: Alert, Normal Affect, Normal Mood - Problem List Review Problem List Initiated/Reviewed/Updated: Yes - My Orders Last 24 Hours: My Active Orders 12/09/16 09:00 Albuterol Sulfate [Proair Respiclick] 2 puff INH TID - Plan Plan:: Impression: Acute: Healthcare Acquired PNA - RML infiltrate - No longer hypoxic - He is coughing up more phlegm - Mycoplasma negative - CRP 8.7 - Continue IV Zosyn/Levaquin - Sputum Cx/Sx and Strep pneumo Ag test - FV as directed - Mucinex 1200 mg po BID - Follow up CXR in AM Anemia, Unspecified - Hgb 9.7 - 6 units PRBCs in 4 weeks - Risk Factor: He is on ASA and Eliquis +/- GERD - GS consulted for planned endoscopy - Can safely hold eliquis and keep ASA on; resume eliquis once procedure is done Query HF, likely Systolic Chronic: CAD/[place] Valvular Heart Disease COPD HTN HLD GERD Diabetes Mellitus Atrial Fib with RBBB on Eliquis, HR is controlled RLE ortho procedure 11/06/16 in [place] Plan: He is clinically stable Continue current treatment Routine AM Labs Follow daily labs, keep Hgb>9 General Surgery consult Obtain recent 2D echo DVT/GI prophylaxis Continue /PT/OT SW/CM for d/c planning
[2016-12-09] MEDS: Piperacillin/Tazobactam 4.5 GM in Sodium Chloride 0.9% 100 ML IV SCH ×3 (08:35→23:52)
[2016-12-09] MEDS: Apixaban 5 MG Tab PO SCH (08:43)
[2016-12-09] MEDS: Aspirin 81 MG Tab.EC PO SCH (08:44)
[2016-12-09] MEDS: Diltiazem 180 MG Cap.CD PO SCH (08:44)
[2016-12-09] MEDS: Gabapentin 300 MG Cap PO SCH (08:44)
[2016-12-09] MEDS: Docusate Sodium 100 MG Cap PO SCH ×2 (08:45→20:24)
[2016-12-09] MEDS: DULoxetine 30 MG Cap PO SCH (08:45)
[2016-12-09] MEDS: Ferrous Sulfate 325 MG Tab PO SCH (08:45)
[2016-12-09] MEDS: Albuterol 6.7 GM Inhaler INH SCH ×3 (08:54→21:12)
[2016-12-09] MEDS ORDERED: hydrALAZINE 20 MG/ML SDV IVPUSH PRN (09:33)
[2016-12-09] MEDS: guaiFENesin 600 MG Tab.ER PO SCH ×3 (12:21→20:25)
[2016-12-09] MEDS: Metoprolol Tartrate 5 MG/5 ML SDV IVPUSH PRN ×2 (13:53→21:46)
--- NOTE | 2016-12-09 14:24 | PCM.CONSN ---
- General Info Date of Service: 12/09/16 - Patient Data Vitals - Most Recent: Last Vital Signs Temp 98.2 F 12/09/16 13:02 Pulse 117 H 12/09/16 13:53 Resp 18 12/09/16 13:02 BP 110/61 12/09/16 13:53 Pulse Ox 92 L 12/09/16 13:05 Weight - Most Recent: 91.535 kg I&O - Last 24 Hours: Intake & Output 12/08/16 12/09/16 12/09/16 23:59 07:59 15:59 Intake Total 120 200 220 Balance 120 200 220 Lab Results Last 24 Hours: Laboratory Results - last 24 hr 12/08/16 12/08/16 12/08/16 Range/Units 16:20 17:00 17:45 WBC (4.23-9.07) K/mm3 RBC (4.63-6.08) M/mm3 Hgb (13.7-17.5) gm/L Hct (40.1-51.0) % MCV (79.0-92.2) fl MCH (25.7-32.2) pg MCHC (32.2-35.5) g/dl RDW Std Deviation (35.1-43.9) fL Plt Count (163-337) K/mm3 MPV (9.4-12.3) fl Neut % (Auto) (34.0-67.9) % Lymph % (Auto) (21.8-53.1) % Pepin % (Auto) (5.3-12.2) % Eos % (Auto) (0.8-7.0) Baso % (Auto) (0.1-1.2) % Neut # (Auto) (1.78-5.38) K/mm3 Lymph # (Auto) (1.32-3.57) K/mm3 Pepin # (Auto) (0.30-0.82) K/mm3 Eos # (Auto) (0.04-0.54) K/mm3 Baso # (Auto) (0.01-0.08) K/mm3 Sodium (136-145) mEq/L Potassium (3.5-5.1) mEq/L Chloride (98-107) mEq/L Carbon Dioxide (21-32) mEq/L Anion Gap (5-15) BUN (7-18) mg/dL Creatinine (0.7-1.3) mg/dL Est Cr Clr Drug Dosing mL/min Estimated GFR (MDRD) (>60) mL/min BUN/Creatinine Ratio (14-18) Glucose (83-115) mg/dL POC Glucose 118 H (83-110) mg/dL Lactic Acid (0.4-2.0) mmol/L Calcium (8.5-10.1) mg/dL Magnesium (1.8-2.4) mg/dl C-Reactive Protein (<1.0) mg/dL Urine Color Dark yellow (Yellow) Urine Appearance Slt cloudy H (Clear) Urine pH 5.5 (5.0-8.0) Ur Specific [place] 1.025 (1.005-1.030) Urine Protein 1+ H (Negative) Urine Glucose (UA) Negative (Negative) Urine Ketones Negative (Negative) Urine Occult Blood Negative (Negative) Urine Nitrite Negative (Negative) Urine Bilirubin 2+ H (Negative) Urine Urobilinogen >=8.0 H (0.2-1.0) Ur Leukocyte Esterase Negative (Negative) Urine RBC 0-5 (0-5) /hpf Urine WBC 0-5 (0-5) /hpf Ur Epithelial Cells 0-5 (0-5) /hpf Calcium Oxalate Crystal Rare H (NONE) Urine Bacteria Rare (FEW) /hpf Urine Mucus Not seen (FEW) /hpf Mycoplasma pneumon IgM (NEGATIVE) MRSA (PCR) Negative 12/08/16 12/09/16 12/09/16 Range/Units 21:02 05:55 06:39 WBC 7.97 (4.23-9.07) K/mm3 RBC 3.17 L (4.63-6.08) M/mm3 Hgb 9.7 L (13.7-17.5) gm/L Hct 29.9 L (40.1-51.0) % MCV 94.3 H (79.0-92.2) fl MCH 30.6 (25.7-32.2) pg MCHC 32.4 (32.2-35.5) g/dl RDW Std Deviation 68.2 H (35.1-43.9) fL Plt Count 151 L (163-337) K/mm3 MPV 10.2 (9.4-12.3) fl Neut % (Auto) 68.0 H (34.0-67.9) % Lymph % (Auto) 19.2 L (21.8-53.1) % Pepin % (Auto) 10.3 (5.3-12.2) % Eos % (Auto) 2.0 (0.8-7.0) Baso % (Auto) 0.1 (0.1-1.2) % Neut # (Auto) 5.42 H (1.78-5.38) K/mm3 Lymph # (Auto) 1.53 (1.32-3.57) K/mm3 Pepin # (Auto) 0.82 (0.30-0.82) K/mm3 Eos # (Auto) 0.16 (0.04-0.54) K/mm3 Baso # (Auto) 0.01 (0.01-0.08) K/mm3 Sodium (136-145) mEq/L Potassium (3.5-5.1) mEq/L Chloride (98-107) mEq/L Carbon Dioxide (21-32) mEq/L Anion Gap (5-15) BUN (7-18) mg/dL Creatinine (0.7-1.3) mg/dL Est Cr Clr Drug Dosing mL/min Estimated GFR (MDRD) (>60) mL/min BUN/Creatinine Ratio (14-18) Glucose (83-115) mg/dL POC Glucose 128 H 99 (83-110) mg/dL Lactic Acid (0.4-2.0) mmol/L Calcium (8.5-10.1) mg/dL Magnesium (1.8-2.4) mg/dl C-Reactive Protein (<1.0) mg/dL Urine Color (Yellow) Urine Appearance (Clear) Urine pH (5.0-8.0) Ur Specific [place] (1.005-1.030) Urine Protein (Negative) Urine Glucose (UA) (Negative) Urine Ketones (Negative) Urine Occult Blood (Negative) Urine Nitrite (Negative) Urine Bilirubin (Negative) Urine Urobilinogen (0.2-1.0) Ur Leukocyte Esterase (Negative) Urine RBC (0-5) /hpf Urine WBC (0-5) /hpf Ur Epithelial Cells (0-5) /hpf Calcium Oxalate Crystal (NONE) Urine Bacteria (FEW) /hpf Urine Mucus (FEW) /hpf Mycoplasma pneumon IgM (NEGATIVE) MRSA (PCR) 12/09/16 12/09/16 Range/Units 06:39 06:39 WBC (4.23-9.07) K/mm3 RBC (4.63-6.08) M/mm3 Hgb (13.7-17.5) gm/L Hct (40.1-51.0) % MCV (79.0-92.2) fl MCH (25.7-32.2) pg MCHC (32.2-35.5) g/dl RDW Std Deviation (35.1-43.9) fL Plt Count (163-337) K/mm3 MPV (9.4-12.3) fl Neut % (Auto) (34.0-67.9) % Lymph % (Auto) (21.8-53.1) % Pepin % (Auto) (5.3-12.2) % Eos % (Auto) (0.8-7.0) Baso % (Auto) (0.1-1.2) % Neut # (Auto) (1.78-5.38) K/mm3 Lymph # (Auto) (1.32-3.57) K/mm3 Pepin # (Auto) (0.30-0.82) K/mm3 Eos # (Auto) (0.04-0.54) K/mm3 Baso # (Auto) (0.01-0.08) K/mm3 Sodium 136 (136-145) mEq/L Potassium 3.8 (3.5-5.1) mEq/L Chloride 99 (98-107) mEq/L Carbon Dioxide 30 (21-32) mEq/L Anion Gap 10.8 (5-15) BUN 17 (7-18) mg/dL Creatinine 1.0 (0.7-1.3) mg/dL Est Cr Clr Drug Dosing 47.83 mL/min Estimated GFR (MDRD) > 60 (>60) mL/min BUN/Creatinine Ratio 17.0 (14-18) Glucose 101 (83-115) mg/dL POC Glucose (83-110) mg/dL Lactic Acid 1.0 (0.4-2.0) mmol/L Calcium 8.5 (8.5-10.1) mg/dL Magnesium 1.7 L (1.8-2.4) mg/dl C-Reactive Protein 8.7 H* (<1.0) mg/dL Urine Color (Yellow) Urine Appearance (Clear) Urine pH (5.0-8.0) Ur Specific [place] (1.005-1.030) Urine Protein (Negative) Urine Glucose (UA) (Negative) Urine Ketones (Negative) Urine Occult Blood (Negative) Urine Nitrite (Negative) Urine Bilirubin (Negative) Urine Urobilinogen (0.2-1.0) Ur Leukocyte Esterase (Negative) Urine RBC (0-5) /hpf Urine WBC (0-5) /hpf Ur Epithelial Cells (0-5) /hpf Calcium Oxalate Crystal (NONE) Urine Bacteria (FEW) /hpf Urine Mucus (FEW) /hpf Mycoplasma pneumon IgM Negative (NEGATIVE) MRSA (PCR) Med Orders - Current: Current Medications Acetaminophen (Tylenol) 650 mg PO Q6H PRN PRN Reason: Pain Last Admin: 12/08/16 23:40 Dose: 650 mg Albuterol (Proventil Neb Soln) 2.5 mg NEB Q4HRRT PRN PRN Reason: Shortness of Breath Albuterol (Proventil Hfa) 0 gm INH TIDRT [facility] Last Admin: 12/09/16 13:04 Dose: 2 puff Apixaban (Eliquis) 2.5 mg PO BID [facility] Last Admin: 12/09/16 08:43 Dose: 2.5 mg Aspirin (Halfprin) 81 mg PO DAILY [facility] Last Admin: 12/09/16 08:44 Dose: 81 mg Dextrose/Water (Dextrose 50% In Water) 50 ml IVPUSH ASDIRECTED PRN PRN Reason: Hypotension Diltiazem HCl (Cardizem Cd) 180 mg PO DAILY [facility] Last Admin: 12/09/16 08:44 Dose: 180 mg Docusate Sodium (Colace) 200 mg PO BID [facility] Last Admin: 12/09/16 08:45 Dose: 200 mg Duloxetine HCl (Cymbalta) 60 mg PO DAILY [facility] Last Admin: 12/09/16 08:45 Dose: 60 mg Ferrous Sulfate (Ferrous Sulfate) 325 mg PO DAILY [facility] Last Admin: 12/09/16 08:45 Dose: 325 mg Gabapentin (Neurontin) 300 mg PO DAILY [facility] Last Admin: 12/09/16 08:44 Dose: 300 mg Guaifenesin (Mucinex) 1,200 mg PO BID [facility] Last Admin: 12/09/16 12:21 Dose: 1,200 mg Hydralazine HCl (Apresoline) 10 mg IVPUSH Q4H PRN PRN Reason: Hypertension Levofloxacin/Dextrose 750 mg/ (Premix) 150 mls @ 100 mls/hr IV Q24H [facility] Piperacillin Sod/Tazobactam (Sod 4.5 gm/ Sodium Chloride) 100 mls @ 25 mls/hr IV Q8H [facility] Last Admin: 12/09/16 08:35 Dose: 25 mls/hr Insulin Aspart (Novolog) 0 unit SUBCUT QIDACANDBED MALA PRN Reason: Protocol Last Admin: 12/09/16 12:29 Dose: Not Given Metoprolol Tartrate (Lopressor) 5 mg IVPUSH Q4H PRN PRN Reason: Tachycardia Last Admin: 12/09/16 13:53 Dose: 5 mg Sodium Chloride (Saline Flush) 10 ml FLUSH ASDIRECTED PRN PRN Reason: Keep Vein Open Discontinued Medications Furosemide (Lasix) 20 mg IVPUSH NOW ONE Stop: 12/08/16 17:16 Last Admin: 12/08/16 17:48 Dose: 20 mg Levofloxacin/Dextrose 750 mg/ (Premix) 150 mls @ 100 mls/hr IV ONETIME ONE Stop: 12/08/16 17:11 Last Admin: 12/08/16 17:00 Dose: 100 mls/hr Piperacillin Sod/Tazobactam (Sod 4.5 gm/ Sodium Chloride) 100 mls @ 200 mls/hr IV ONETIME ONE Stop: 12/08/16 16:20 Last Admin: 12/08/16 16:08 Dose: 200 mls/hr Magnesium Sulfate 2 gm/ Premix 50 mls @ 25 mls/hr IV ONETIME ONE Stop: 12/09/16 09:55 Last Admin: 12/09/16 08:36 Dose: 25 mls/hr Levalbuterol HCl (Xopenex) 1.25 mg NEB QID PRN PRN Reason: Shortness of Breath Consult PN Assessment/Plan Procedures: Procedures AIRWAY INHALATION TREATMENT (01/30/16) ASSAY OF FOLIC ACID RBC (01/30/16) ASSAY OF IRON (01/30/16) ASSAY OF MAGNESIUM (01/30/16) ASSAY OF NATRIURETIC PEPTIDE (01/30/16) ASSAY OF PHOSPHORUS (04/13/15) ASSAY OF TRANSFERRIN (01/30/16) ASSAY OF TROPONIN QUANT (09/08/15) BLOOD CULTURE FOR BACTERIA (04/13/15) BLOOD TYPING SEROLOGIC ABO (11/05/16) BLOOD TYPING SEROLOGIC RH(D) (11/05/16) C-REACTIVE PROTEIN (01/30/16) CHEST X-RAY 1 VIEW FRONTAL (11/05/16) COMPLETE CBC W/AUTO DIFF WBC (11/05/16) COMPREHEN METABOLIC PANEL (11/05/16) CT ABD & PELV W/CONTRAST (01/30/16) CT HEAD/BRAIN W/O DYE (12/06/16) ELECTROCARDIOGRAM TRACING (11/05/16) EMERGENCY DEPT VISIT (11/05/16) EMERGENCY DEPT VISIT (09/08/15) EMERGENCY DEPT VISIT (04/13/15) EVALUATE PT USE OF INHALER (01/30/16) GAIT TRAINING THERAPY (01/30/16) GLUCOSE BLOOD TEST (01/30/16) HYDRATE IV INFUSION ADD-ON (01/30/16) MEASURE BLOOD OXYGEN LEVEL (01/30/16) METABOLIC PANEL TOTAL CA (01/30/16) MICROBE SUSCEPTIBLE PROSPER (04/13/15) MR-STAPH DNA AMP PROBE (01/30/16) OT EVALUATION (01/30/16) POLYSOM 6/> YRS 4/> NAZ (12/10/15) PROTHROMBIN TIME (11/05/16) PT EVALUATION (01/30/16) RBC ANTIBODY SCREEN (11/05/16) ROUTINE VENIPUNCTURE (11/05/16) SELF CARE MNGMENT TRAINING (01/30/16) THER/PROPH/DIAG INJ IV PUSH (11/05/16) THERAPEUTIC ACTIVITIES (01/30/16) THERAPEUTIC EXERCISES (01/30/16) THROMBOPLASTIN TIME PARTIAL (11/05/16) TISSUE EXAM BY PATHOLOGIST (01/30/16) TISSUE EXAM BY PATHOLOGIST (11/16/14) TX/PRO/DX INJ NEW DRUG ADDON (11/05/16) TX/PRO/DX INJ SAME DRUG SOAP CHIPPER (11/05/16) URINALYSIS AUTO W/SCOPE (04/13/15) URINE BACTERIA CULTURE (04/13/15) URINE CULTURE/COLONY COUNT (04/13/15) VITAMIN B-12 (01/30/16) X-RAY EXAM HIP UNI 2-3 VIEWS (11/05/16) X-RAY EXAM OF ABDOMEN (01/30/16) Problem List Initiated/Reviewed/Updated: Yes My Orders Last 24 Hours: My Active Orders 12/09/16 14:21 Verify Patient Consent Obtain [RC] ASDIRECTED 12/10/16 17:00 KCl/Na Sulf,Bicarb,Cl/PEG 3351 [GoLytely] 4,000 ml PO ONETIME ONE 12/10/16 Breakfast Clear Liquid Diet [DIET] 12/10/16 Dinner Nothing per Oral After Midnight Diet [DIET] 12/11/16 13:00 Schedule Procedure [COMM] Routine Plan: surgical consult dictated STARLA
[2016-12-09] MEDS: Levofloxacin/Dextrose 5%-Water 750 MG in Premix Bag 1 BAG IV SCH (16:16)
[2016-12-09] MEDS ORDERED: traMADol 50 MG Tab PO PRN (19:23)
[2016-12-09] MEDS: traMADol 50 MG Tab PO SCH ×2 (20:24→22:54)
[2016-12-09] MEDS: Hypromellose 0.5% Ophth Soln 15 ML Bottle EYEBOTH SCH (20:27)
[2016-12-09] MEDS: Menthol/Methyl Salicylate 29 GM Tube TOP SCH (22:36)
[2016-12-09] MEDS: Acetaminophen 325 MG Tab PO PRN (23:57)
[2016-12-10] MEDS: Albuterol 6.7 GM Inhaler INH SCH ×3 (06:22→21:08)
[2016-12-10] MEDS: Pantoprazole 40 MG Tab.CR PO SCH (06:39)
[2016-12-10] MEDS: metFORMIN 500 MG Tab PO SCH ×2 (06:39→16:29)
[2016-12-10] MEDS: glipiZIDE 5 MG Tab.ER PO SCH (06:40)
[2016-12-10] MEDS: traMADol 50 MG Tab PO SCH ×3 (06:40→21:02)
--- NOTE | 2016-12-10 07:24 | CR ---
Chest: Frontal view of the chest was obtained. Comparison: Previous chest x-ray of 11/05/16. Heart size is within normal limits. Tortuous thoracic aorta is seen. Lungs are felt to be clear. Bony structure show mild scoliosis within the spine. Bony structures are osteopenic. Impression: 1. Incidental findings. Nothing acute is appreciated on frontal chest x-ray. Diagnostic code #2
--- NOTE | 2016-12-10 08:29 | CONS ---
CONSULTING PHYSICIAN: Fabio Diaz MD DATE OF CONSULTATION: 12/09/2016 REASON FOR CONSULTATION: This 85-year-old, who was at a group home developed cough, shortness of breath, and came into the emergency room with diagnosis of the right lower lobe pneumonia. The patient was treated, has improved. Also noted that about 2 weeks ago had a hip pinning in [place]. At that time he had 3 units of blood and another 2 units later on. His hemoglobin has slowly drifted down to 9.7. Because of atrial fib prior to the hip surgery on Eliquis, this was taken off and he was restarted now since coming into the hospital with the anemia and has been stopped. He denies any black tarry stools or bright red rectal bleeding, but there is concern that colon and stomach needs to be worked up for source of GI bleeding prior to restarting his Eliquis. The patient denies any use of nonsteroidals. PAST MEDICAL PROBLEMS: Atrial fibrillation, angina, arrhythmias, hypertension, history of VT in the past, aortic valve disorder, history of bronchitis, COPD and he has some carpal tunnel syndrome on both hands, but right worse than the left. PAST SURGICAL HISTORY: Appendectomy and cholecystectomy. FAMILY HISTORY: He is a former smoker. ALLERGIES: None known. REVIEW OF SYSTEMS: No chest pain, shortness of breath, cough, hoarseness, wheezing, fainting, weakness, numbness, convulsions, nausea, vomiting, indigestion. PHYSICAL EXAMINATION: GENERAL: Reveals alert, cooperative male. His temperature is 98.2, pulse rate 100, blood pressure 110/61. HEENT: Eyes, sclerae white. Extraocular muscle motion normal. Oral cavity, healthy mucous membrane. NECK: Supple. No nodes. No thyromegaly. No murmurs in the neck. LUNGS: Clear. No rales, rhonchi, fremitus, or dullness. HEART: Tones irregular regular rate. Do not hear any murmurs. ABDOMEN: Soft, no tenderness, guarding, rebound, organomegaly. EXTREMITIES: No pulsatile masses in upper and lower extremities. No angulation or deformities except for the hip on the right, moves poorly as a result of postsurgical changes. No edema noted. NEUROLOGIC: No sensorineural deficit, 3 through 12 are intact. SKIN: Warm and dry. PSYCHIATRIC: Alert and normal. ASSESSMENT: Hip fracture on the right, anemia 9.7 with history of receiving 5 units of blood over the last 2 weeks. Atrial fibrillation and history of use of anticoagulants. PLAN: To proceed with EGD, colonoscopy on Saturday. Risks and complications discussed with the patient who understands and we will schedule. MMODAL /[id number]
[2016-12-10] MEDS: Piperacillin/Tazobactam 4.5 GM in Sodium Chloride 0.9% 100 ML IV SCH ×2 (08:51→18:02)
[2016-12-10] MEDS: Calcium Carbonate 500 MG Tab.Chew PO SCH (08:51)
[2016-12-10] MEDS: guaiFENesin 600 MG Tab.ER PO SCH ×2 (08:51→21:02)
[2016-12-10] MEDS: Polyethylene Glycol 3350 Powder 17 GM Packet PO SCH (08:51)
[2016-12-10] MEDS: Ferrous Sulfate 325 MG Tab PO SCH (08:52)
[2016-12-10] MEDS: Aspirin 81 MG Tab.EC PO SCH (08:52)
[2016-12-10] MEDS: Docusate Sodium 100 MG Cap PO SCH ×2 (08:52→21:02)
[2016-12-10] MEDS: Metoprolol Succinate 50 MG Tab.ER PO SCH (08:52)
[2016-12-10] MEDS: Gabapentin 300 MG Cap PO SCH (08:52)
[2016-12-10] MEDS: DULoxetine 30 MG Cap PO SCH (08:53)
[2016-12-10] MEDS: Acetaminophen 325 MG Tab PO PRN (08:53)
[2016-12-10] MEDS: Diltiazem 180 MG Cap.CD PO SCH (08:54)
[2016-12-10] MEDS: Vitamin E (dl-alpha-tocopherol acetate) 400 Unit Cap PO SCH (08:54)
[2016-12-10] MEDS: Tamsulosin 0.4 MG Cap.ER PO SCH (08:54)
[2016-12-10] MEDS: Menthol/Methyl Salicylate 29 GM Tube TOP SCH ×4 (08:55→21:30)
[2016-12-10] MEDS: Insulin Aspart 100 Units/ML 3 ML Pen SUBCUT SCH ×4 (08:55→21:05)
[2016-12-10] MEDS: Hypromellose 0.5% Ophth Soln 15 ML Bottle EYEBOTH SCH ×2 (08:56→21:02)
--- NOTE | 2016-12-10 10:00 | PCM.PN ---
- General Info Date of Service: 12/10/16 Admission Dx/Problem (Free Text): HCAAndrade Matias is seen this morning, resting comfortably. Denies complaints of pain. He is coughing, getting sputum production. No CP, palpitations. Plans for colonoscopy and EGD tomorrow with Dr. Diaz for further eval of anemia. Functional Status: Reports: Pain Controlled, Tolerating Diet, Ambulating, Urinating, Incentive Spirometry. Denies: New Symptoms - Review of Systems General: Reports: Weakness HEENT: Reports: No Symptoms Pulmonary: Reports: No Symptoms Cardiovascular: Reports: No Symptoms. Denies: Chest Pain, Palpitations Gastrointestinal: Reports: No Symptoms. Denies: Abdominal Pain, Diarrhea, Nausea, Vomiting Genitourinary: Reports: No Symptoms Musculoskeletal: Denies: Leg Pain (right hip pain ) Skin: Reports: No Symptoms Neurological: Reports: No Symptoms Psychiatric: Reports: No Symptoms - Patient Data Vitals - Most Recent: Last Vital Signs Temp 97.5 F 12/10/16 07:29 Pulse 105 H 12/10/16 08:52 Resp 16 12/10/16 07:29 BP 115/81 12/10/16 08:52 Pulse Ox 96 12/10/16 07:29 Weight - Most Recent: 199 lb 12.8 oz I&O - Last 24 Hours: Intake & Output 12/09/16 12/10/16 12/10/16 22:59 06:59 14:59 Intake Total 1050 600 Output Total 250 Balance 800 600 Lab Results Last 24 Hours: Laboratory Results - last 24 hr 12/09/16 12/09/16 12/09/16 Range/Units 12:27 17:03 21:38 WBC (4.23-9.07) K/mm3 RBC (4.63-6.08) M/mm3 Hgb (13.7-17.5) gm/L Hct (40.1-51.0) % MCV (79.0-92.2) fl MCH (25.7-32.2) pg MCHC (32.2-35.5) g/dl RDW Std Deviation (35.1-43.9) fL Plt Count (163-337) K/mm3 MPV (9.4-12.3) fl Neut % (Auto) (34.0-67.9) % Lymph % (Auto) (21.8-53.1) % Hand % (Auto) (5.3-12.2) % Eos % (Auto) (0.8-7.0) Baso % (Auto) (0.1-1.2) % Neut # (Auto) (1.78-5.38) K/mm3 Lymph # (Auto) (1.32-3.57) K/mm3 Hand # (Auto) (0.30-0.82) K/mm3 Eos # (Auto) (0.04-0.54) K/mm3 Baso # (Auto) (0.01-0.08) K/mm3 Sodium (136-145) mEq/L Potassium (3.5-5.1) mEq/L Chloride (98-107) mEq/L Carbon Dioxide (21-32) mEq/L Anion Gap (5-15) BUN (7-18) mg/dL Creatinine (0.7-1.3) mg/dL Est Cr Clr Drug Dosing mL/min Estimated GFR (MDRD) (>60) mL/min BUN/Creatinine Ratio (14-18) Glucose (83-115) mg/dL POC Glucose 148 H 172 H 205 H (83-110) mg/dL Calcium (8.5-10.1) mg/dL Magnesium (1.8-2.4) mg/dl C-Reactive Protein (<1.0) mg/dL [id number]-Oeodugmtnky Pept (0-450) pg/mL 12/10/16 12/10/16 12/10/16 Range/Units 05:40 05:40 06:17 WBC 7.08 (4.23-9.07) K/mm3 RBC 3.27 L (4.63-6.08) M/mm3 Hgb 9.8 L (13.7-17.5) gm/L Hct 30.8 L (40.1-51.0) % MCV 94.2 H (79.0-92.2) fl MCH 30.0 (25.7-32.2) pg MCHC 31.8 L (32.2-35.5) g/dl RDW Std Deviation 68.4 H (35.1-43.9) fL Plt Count 164 (163-337) K/mm3 MPV 11.0 (9.4-12.3) fl Neut % (Auto) 63.2 (34.0-67.9) % Lymph % (Auto) 21.9 (21.8-53.1) % Hand % (Auto) 12.0 (5.3-12.2) % Eos % (Auto) 2.5 (0.8-7.0) Baso % (Auto) 0.1 (0.1-1.2) % Neut # (Auto) 4.47 (1.78-5.38) K/mm3 Lymph # (Auto) 1.55 (1.32-3.57) K/mm3 Hand # (Auto) 0.85 H (0.30-0.82) K/mm3 Eos # (Auto) 0.18 (0.04-0.54) K/mm3 Baso # (Auto) 0.01 (0.01-0.08) K/mm3 Sodium 137 (136-145) mEq/L Potassium 3.9 (3.5-5.1) mEq/L Chloride 100 (98-107) mEq/L Carbon Dioxide 27 (21-32) mEq/L Anion Gap 13.9 (5-15) BUN 16 (7-18) mg/dL Creatinine 0.9 (0.7-1.3) mg/dL Est Cr Clr Drug Dosing 53.15 mL/min Estimated GFR (MDRD) > 60 (>60) mL/min BUN/Creatinine Ratio 17.8 (14-18) Glucose 119 H (83-115) mg/dL POC Glucose 124 H (83-110) mg/dL Calcium 8.6 (8.5-10.1) mg/dL Magnesium 2.0 (1.8-2.4) mg/dl C-Reactive Protein 9.4 H* (<1.0) mg/dL Kwv-P-Mvaypttfras Pept 2005 H (0-450) pg/mL Greg Results Last 24 Hours: Microbiology 12/09/16 12:10 Gram Stain - Final Sputum - Expectorated Sputum Culture - Preliminary Gram Positive Cocci YEAST Med Orders - Current: Current Medications Acetaminophen (Tylenol) 650 mg PO Q6H PRN PRN Reason: Pain Last Admin: 12/10/16 08:53 Dose: 650 mg Albuterol (Proventil Neb Soln) 2.5 mg NEB Q4HRRT PRN PRN Reason: Shortness of Breath Albuterol (Proventil Hfa) 0 gm INH TIDRT [facility] Last Admin: 12/10/16 06:22 Dose: 2 puff Artificial Tears (Isopto Tears 0.5% Ophth Soln) 0 ml EYEBOTH BID [facility] Last Admin: 12/10/16 08:56 Dose: 1 drop Aspirin (Halfprin) 81 mg PO DAILY [facility] Last Admin: 12/10/16 08:52 Dose: 81 mg Calcium Carbonate/Glycine (Tums) 500 mg PO DAILY [facility] Last Admin: 12/10/16 08:51 Dose: 500 mg Dextrose/Water (Dextrose 50% In Water) 50 ml IVPUSH ASDIRECTED PRN PRN Reason: Hypotension Diltiazem HCl (Cardizem Cd) 180 mg PO DAILY [facility] Last Admin: 12/10/16 08:54 Dose: 180 mg Docusate Sodium (Colace) 200 mg PO BID [facility] Last Admin: 12/10/16 08:52 Dose: 200 mg Duloxetine HCl (Cymbalta) 60 mg PO DAILY [facility] Last Admin: 12/10/16 08:53 Dose: 60 mg Ferrous Sulfate (Ferrous Sulfate) 325 mg PO DAILY [facility] Last Admin: 12/10/16 08:52 Dose: 325 mg Fluconazole (Diflucan) 100 mg PO DAILY [facility] Furosemide (Lasix) 40 mg IVPUSH DAILY [facility] Gabapentin (Neurontin) 300 mg PO DAILY [facility] Last Admin: 12/10/16 08:52 Dose: 300 mg Glipizide (Glucotrol Xl) 5 mg PO ACBRK [facility] Last Admin: 12/10/16 06:40 Dose: 5 mg Guaifenesin (Mucinex) 1,200 mg PO BID [facility] Last Admin: 12/10/16 08:51 Dose: 1,200 mg Hydralazine HCl (Apresoline) 10 mg IVPUSH Q4H PRN PRN Reason: Hypertension Levofloxacin/Dextrose 750 mg/ (Premix) 150 mls @ 100 mls/hr IV Q24H [facility] Last Admin: 12/09/16 16:16 Dose: 100 mls/hr Piperacillin Sod/Tazobactam (Sod 4.5 gm/ Sodium Chloride) 100 mls @ 25 mls/hr IV Q8H [facility] Last Admin: 12/10/16 08:51 Dose: 25 mls/hr Insulin Aspart (Novolog) 0 unit SUBCUT QIDACANDBED [facility] PRN Reason: Protocol Last Admin: 12/10/16 08:55 Dose: Not Given Metformin HCl (Glucophage) 250 mg PO BIDMEALS [facility] Last Admin: 12/10/16 06:39 Dose: 250 mg Methyl Salicylate (Analgesic [place]) 0 gm TOP TID [facility] Last Admin: 12/10/16 08:55 Dose: Not Given Metoprolol Succinate (Toprol Xl) 25 mg PO DAILY [facility] Last Admin: 12/10/16 08:52 Dose: 25 mg Metoprolol Tartrate (Lopressor) 5 mg IVPUSH Q4H PRN PRN Reason: Tachycardia Last Admin: 12/09/16 21:46 Dose: 5 mg Pantoprazole Sodium (Protonix) 40 mg PO ACBREAKFAST [facility] Last Admin: 12/10/16 06:39 Dose: 40 mg Polyethylene Glycol (Miralax) 17 gm PO DAILY [facility] Last Admin: 12/10/16 08:51 Dose: 17 gm Polyethylene Glycol/Electrolytes (Golytely) 4,000 ml PO ONETIME ONE Stop: 12/10/16 17:01 Sodium Chloride (Saline Flush) 10 ml FLUSH ASDIRECTED PRN PRN Reason: Keep Vein Open Tamsulosin HCl (Flomax) 0.4 mg PO DAILY [facility] Last Admin: 12/10/16 08:54 Dose: 0.4 mg Tramadol HCl (Ultram) 50 mg PO Q6H PRN PRN Reason: Pain (severe 7-10) Last Admin: 12/10/16 03:59 Dose: 50 mg Tramadol HCl (Ultram) 50 mg PO Q8HR [facility] Last Admin: 12/10/16 06:40 Dose: 50 mg Vitamin E (Vitamin E) 400 units PO DAILY [facility] Last Admin: 12/10/16 08:54 Dose: 400 units Discontinued Medications Apixaban (Eliquis) 2.5 mg PO BID [facility] Last Admin: 12/09/16 08:43 Dose: 2.5 mg Furosemide (Lasix) 20 mg IVPUSH NOW ONE Stop: 12/08/16 17:16 Last Admin: 12/08/16 17:48 Dose: 20 mg Levofloxacin/Dextrose 750 mg/ (Premix) 150 mls @ 100 mls/hr IV ONETIME ONE Stop: 12/08/16 17:11 Last Admin: 12/08/16 17:00 Dose: 100 mls/hr Piperacillin Sod/Tazobactam (Sod 4.5 gm/ Sodium Chloride) 100 mls @ 200 mls/hr IV ONETIME ONE Stop: 12/08/16 16:20 Last Admin: 12/08/16 16:08 Dose: 200 mls/hr Magnesium Sulfate 2 gm/ Premix 50 mls @ 25 mls/hr IV ONETIME ONE Stop: 12/09/16 09:55 Last Admin: 12/09/16 08:36 Dose: 25 mls/hr Levalbuterol HCl (Xopenex) 1.25 mg NEB QID PRN PRN Reason: Shortness of Breath - Exam Quality Assessment: DVT Prophylaxis General: Alert, Oriented, No Acute Distress HEENT: Pupils Equal, EOMI Neck: Supple Lungs: Normal Respiratory Effort, Decreased Breath Sounds (mid to lower lobes), Crackles (bases bilat) Cardiovascular: Irregular Rhythm GI/Abdominal Exam: Normal Bowel Sounds, Soft, Non-Tender (Male) Exam: Deferred Extremities: Normal Inspection, No Pedal Edema, Other (healed incision to right hip) Peripheral Pulses: 1+: Dorsalis Pedis (L), Dorsalis Pedis (R) Neurological: No New Focal Deficit Psy/Mental Status: Alert, Normal Affect, Normal Mood - Problem List & Annotations (1) Pneumonia SNOMED Code(s): 176512219 Code(s): J18.9 - PNEUMONIA, UNSPECIFIED ORGANISM Status: Acute Priority: High Current Visit: Yes Qualifiers: Pneumonia type: due to unspecified organism Laterality: right Lung location: middle lobe of lung Qualified Code(s): J18.9 - Pneumonia, unspecified organism (2) Anemia SNOMED Code(s): 999576602 Code(s): D64.9 - ANEMIA, UNSPECIFIED Status: Chronic Priority: Medium Current Visit: No Qualifiers: Anemia type: unspecified type Qualified Code(s): D64.9 - Anemia, unspecified (3) Diabetes mellitus SNOMED Code(s): 14864377 Code(s): E11.9 - TYPE 2 DIABETES MELLITUS WITHOUT COMPLICATIONS Status: Chronic Priority: Medium Current Visit: Yes Qualifiers: Diabetes mellitus type: type 2 Diabetes mellitus complication status: with hyperglycemia Diabetes mellitus half-way insulin use: 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 Qualified Code(s): E11.65 - Type 2 diabetes mellitus with hyperglycemia (4) Atrial fibrillation SNOMED Code(s): 60596608 Code(s): I48.91 - UNSPECIFIED ATRIAL FIBRILLATION Status: Chronic Priority: Medium Current Visit: Yes Qualifiers: Atrial fibrillation type: chronic Qualified Code(s): I48.2 - Chronic atrial fibrillation (5) COPD (chronic obstructive pulmonary disease) SNOMED Code(s): 22398700 Code(s): J44.9 - CHRONIC OBSTRUCTIVE PULMONARY DISEASE, UNSPECIFIED Status : Chronic Priority: Medium Current Visit: Yes Qualifiers: Emphysema type: unspecified - Problem List Review Problem List Initiated/Reviewed/Updated: Yes - My Orders Last 24 Hours: My Active Orders 12/10/16 10:00 Fluconazole [Diflucan] 100 mg PO DAILY Furosemide [Lasix] 40 mg IVPUSH DAILY - Plan Plan:: Impression: Acute: Healthcare Acquired PNA - RML infiltrate - No longer hypoxic - He is coughing up more phlegm - Mycoplasma negative - Continue IV Zosyn/Levaquin - Sputum Cx/Sx and Strep pneumo Ag test - FV as directed - Mucinex 1200 mg po BID - Follow up CXR - with ? worsening of RML infiltrate, pulmonary vascular congestion suggestive of CHF Anemia, Unspecified - Hgb 9.7--stable 9.8 today - 6 units PRBCs in 4 weeks - Risk Factor: He is on ASA and Eliquis +/- GERD - GS consulted for planned endoscopy-- tomorrow am - Can safely hold eliquis and keep ASA on; resume eliquis once procedure is done Query HF, likely Systolic -BNP elevated -CXR with evidence of CHF -Awaiting old echo reports -Lasix IVP today, follow labs Chronic: CAD/MO Valvular Heart Disease COPD HTN HLD GERD Diabetes Mellitus Atrial Fib with RBBB on Eliquis, HR is controlled RLE ortho procedure 11/06/16 in [place] Plan: He is clinically stable Continue current treatment Routine AM Labs Follow daily labs, keep Hgb>9 General Surgery consult Obtain recent 2D echo DVT/GI prophylaxis Continue /PT/OT SW/CM for d/c planning Likely DC in next 24-48 hours [facility] Patient is DNR code status.
[2016-12-10] MEDS: Furosemide 40 MG/4 ML VIAL IVPUSH SCH (10:09)
[2016-12-10] MEDS: Fluconazole 100 MG Tab PO SCH (10:10)
--- NOTE | 2016-12-10 10:17 | CR ---
Chest: Frontal view of the chest was obtained. Comparison: Previous chest x-ray of 12/08/16. Heart size and mediastinum are within normal limits for technique. Lung markings are slightly increased within the medial right lung base. This appears more prominent than on prior study possibly due to accentuation from apical positioning on current exam, difficult to exclude increasing atelectasis or even small area of pneumonia at this time. Lungs otherwise are clear. Bony structures are grossly intact. Impression: 1. Questionable increased density within the medial right lung base from prior chest x-ray as described above. 2. Nothing acute is otherwise seen. Diagnostic code #3
[2016-12-10] MEDS: Levofloxacin/Dextrose 5%-Water 750 MG in Premix Bag 1 BAG IV SCH ×2 (15:22→16:32)
--- NOTE | 2016-12-10 16:48 | PCM.PREANE ---
<Henrique Olivas M - Last Filed: 12/10/16 16:59> Preanesthetic Assessment - Anesthesia/Transfusion/Family Hx Anesthesia History: Prior Anesthesia Reaction Type of Anesthesia Reaction: Other (see below) (memory problems after appy ) Family History of Anesthesia Reaction: No Transfusion History: Prior Transfusion Without Reaction Type of Transfusion Reactions: Reports: Unknown - Review of Systems General: No Symptoms, Weakness, Fatigue Pulmonary: Shortness of Breath (COPD and pneumonia) Cardiovascular: No Symptoms Gastrointestinal: No Symptoms Neurological: No Symptoms Other: Reports: Diabetes, Neck Pain (last few weeks ) - Physical Assessment Pulse: 49 O2 Sat by Pulse Oximetry: 95 Respiratory Rate: 12 Blood Pressure: 93/67 Temperature: 36.2 C Vital Signs: Last Vital Signs Temp 36.5 C 12/11/16 07:14 Pulse 123 H 12/11/16 09:07 Resp 14 12/11/16 07:14 BP 102/62 12/11/16 09:07 Pulse Ox 95 12/11/16 08:45 Height: 1.65 m Weight: 90.628 kg ASA Class: 3 Mental Status: Alert & Oriented x3 Airway Class: Mallampati = 2 Dentition: Reports: Missing Tooth/Teeth, Caries Thyro-Mental Finger Breadths: 3 Mouth Opening Finger Breadths: 3 ROM/Head Extension: Limited/Partial Lungs: Normal Respiratory Effort, Decreased Breath Sounds, Wheezing Cardiovascular: Irregular Rhythm - Lab Values: Laboratory Last Values WBC 5.97 K/mm3 (4.23-9.07) 12/11/16 06:40 RBC 3.40 M/mm3 (4.63-6.08) L 12/11/16 06:40 Hgb 10.3 gm/L (13.7-17.5) L 12/11/16 06:40 Hct 32.6 % (40.1-51.0) L 12/11/16 06:40 MCV 95.9 fl (79.0-92.2) H 12/11/16 06:40 MCH 30.3 pg (25.7-32.2) 12/11/16 06:40 MCHC 31.6 g/dl (32.2-35.5) L 12/11/16 06:40 RDW Std Deviation 69.7 fL (35.1-43.9) H 12/11/16 06:40 Plt Count 178 K/mm3 (163-337) 12/11/16 06:40 MPV 10.2 fl (9.4-12.3) 12/11/16 06:40 Neut % (Auto) 55.5 % (34.0-67.9) 12/11/16 06:40 Lymph % (Auto) 30.0 % (21.8-53.1) 12/11/16 06:40 [place] % (Auto) 10.9 % (5.3-12.2) 12/11/16 06:40 Eos % (Auto) 2.8 (0.8-7.0) 12/11/16 06:40 Baso % (Auto) 0.3 % (0.1-1.2) 12/11/16 06:40 Neut # (Auto) 3.31 K/mm3 (1.78-5.38) 12/11/16 06:40 Lymph # (Auto) 1.79 K/mm3 (1.32-3.57) 12/11/16 06:40 [place] # (Auto) 0.65 K/mm3 (0.30-0.82) 12/11/16 06:40 Eos # (Auto) 0.17 K/mm3 (0.04-0.54) 12/11/16 06:40 Baso # (Auto) 0.02 K/mm3 (0.01-0.08) 12/11/16 06:40 Sodium 141 mEq/L (136-145) 12/11/16 06:40 Potassium 4.1 mEq/L (3.5-5.1) 12/11/16 06:40 Chloride 102 mEq/L (98-107) 12/11/16 06:40 Carbon Dioxide 30 mEq/L (21-32) 12/11/16 06:40 Anion Gap 13.1 (5-15) 12/11/16 06:40 BUN 15 mg/dL (7-18) 12/11/16 06:40 Creatinine 1.0 mg/dL (0.7-1.3) 12/11/16 06:40 Est Cr Clr Drug Dosing 47.83 mL/min 12/11/16 06:40 Estimated GFR (MDRD) > 60 mL/min (>60) 12/11/16 06:40 BUN/Creatinine Ratio 15.0 (14-18) 12/11/16 06:40 Glucose 123 mg/dL (83-115) H 12/11/16 06:40 POC Glucose 116 mg/dL (83-110) H 12/11/16 06:35 Lactic Acid 1.0 mmol/L (0.4-2.0) 12/09/16 06:39 Calcium 9.0 mg/dL (8.5-10.1) 12/11/16 06:40 Magnesium 1.8 mg/dl (1.8-2.4) 12/11/16 06:40 Total Bilirubin 2.1 mg/dL (0.2-1.0) H 12/08/16 14:10 AST 18 U/L (15-37) 12/08/16 14:10 ALT 16 U/L (16-63) 12/08/16 14:10 Alkaline Phosphatase 127 U/L (46-116) H 12/08/16 14:10 Troponin I < 0.017 ng/mL (0.00-0.056) 12/08/16 14:10 C-Reactive Protein 8.0 mg/dL (<1.0) H* 12/11/16 06:40 [id number] Pept 2005 pg/mL (0-450) H 12/10/16 05:40 Total Protein 6.6 g/dl (6.4-8.2) 12/08/16 14:10 Albumin 3.5 g/dl (3.4-5.0) 12/08/16 14:10 Globulin 3.1 gm/dL 12/08/16 14:10 Albumin/Globulin Ratio 1.1 (1-2) 12/08/16 14:10 Urine Color Dark yellow (Yellow) 12/08/16 16:20 Urine Appearance Slt cloudy (Clear) H 12/08/16 16:20 Urine pH 5.5 (5.0-8.0) 12/08/16 16:20 Ur Specific [place] 1.025 (1.005-1.030) 12/08/16 16:20 Urine Protein 1+ (Negative) H 12/08/16 16:20 Urine Glucose (UA) Negative (Negative) 12/08/16 16:20 Urine Ketones Negative (Negative) 12/08/16 16:20 Urine Occult Blood Negative (Negative) 12/08/16 16:20 Urine Nitrite Negative (Negative) 12/08/16 16:20 Urine Bilirubin 2+ (Negative) H 12/08/16 16:20 Urine Urobilinogen >=8.0 (0.2-1.0) H 12/08/16 16:20 Ur Leukocyte Esterase Negative (Negative) 12/08/16 16:20 Urine RBC 0-5 /hpf (0-5) 12/08/16 16:20 Urine WBC 0-5 /hpf (0-5) 12/08/16 16:20 Ur Epithelial Cells 0-5 /hpf (0-5) 12/08/16 16:20 Calcium Oxalate Crystal Rare (NONE) H 12/08/16 16:20 Urine Bacteria Rare /hpf (FEW) 12/08/16 16:20 Urine Mucus Not seen /hpf (FEW) 12/08/16 16:20 Mycoplasma pneumon IgM Negative (NEGATIVE) 12/09/16 06:39 MRSA (PCR) Negative 12/08/16 17:00 - Allergies Allergies/Adverse Reactions: Allergies Allergy/AdvReac Type Severity Reaction Status Date / Time No Known Allergies Allergy Verified 12/08/16 13:41 - Blood Blood Available: No - Anesthesia Plan Pre-Op Medication Ordered: Beta Marlene Beta Marlene: Metoprolol - Acknowledgements Anesthesia Type Planned: MAC Pt an Appropriate Candidate for the Planned Anesthesia: Yes Alternatives and Risks of Anesthesia Discussed w Pt/Guardian: Yes Pt/Guardian Understands and Agrees with Anesthesia Plan: Yes PreAnesthesia Questionnaire HEENT History: Reports: Cataract, Impaired Vision Cardiovascular History: Reports: Afib, Angina, Arrhythmia, Hypertension, VT, Other (See Below) Other Cardiovascular History: Nonrheumatic aortic valve disorder, atherosclerotic heart disease Respiratory History: Reports: Asthma, Bronchitis, Recurrent, COPD, Pneumonia, Recurrent Gastrointestinal History: Reports: GERD, Hemorrhoids Genitourinary History: Reports: BPH, Renal Calculus, Renal Disease Musculoskeletal History: Reports: Arthritis, Back Pain, Chronic, Fracture, Osteoarthritis Neurological History: Reports: CVA Psychiatric History: Reports: Depression Endocrine/Metabolic History: Reports: Diabetes, Type II Hematologic History: Reports: Anemia, Iron Deficiency Oncologic (Cancer) History: Reports: None - Infectious Disease History Infectious Disease History: Reports: Chicken Pox - Past Surgical History HEENT Surgical History: Reports: Cataract Surgery GI Surgical History: Reports: Appendectomy, Cholecystectomy, Colonoscopy Musculoskeletal Surgical History: Reports: Other (See Below) Other Musculoskeletal Surgeries/Procedures:: femur fx surgery - SUBSTANCE USE Smoking Status *Q: Former Smoker (quit 40 years ago) Tobacco Use Within Last Twelve Months: No Second Hand Smoke Exposure: No Days Per Week of Alcohol Use: 0 Recreational Drug Use History: No - HOME MEDS Home Medications: Home Meds Albuterol Sulfate [Proair Respiclick] 2 puff INH TID 04/13/15 [History] Aspirin [Low Dose Aspirin EC] 81 mg PO DAILY 04/13/15 [History] DULoxetine [Cymbalta] 60 mg PO DAILY 04/13/15 [History] Docusate Sodium [Colace] 200 mg PO BID 04/13/15 [History] Ferrous Sulfate 324 mg PO DAILY 04/13/15 [History] Pantoprazole [ProTONIX] 40 mg PO DAILY 04/13/15 [History] Vitamin E 1 tab PO DAILY 04/13/15 [History] glipiZIDE [Glucotrol XL] 5 mg PO ACBREAKFAST 04/13/15 [History] Propylene Glycol/Peg 400 [Systane 0.3-0.4% Eye Drops] 1 drop EYEBOTH BID [History] Tamsulosin [Flomax] 0.4 mg PO DAILY 09/08/15 [History] Metoprolol Succinate 25 mg PO DAILY 01/30/16 [History] Acetaminophen 650 mg PO Q6H PRN 11/05/16 [History] Diltiazem [Cardizem CD] 180 mg PO DAILY 11/05/16 [History] metFORMIN [Glucophage] 250 mg PO BIDMEALS 11/05/16 [History] traMADol [Ultram] 50 mg PO Q6H PRN 12/06/16 [History] Apixaban [Eliquis] 5 mg PO BID 12/08/16 [History] Gabapentin [Neurontin] 300 mg PO DAILY 12/08/16 [History] Polyethylene Glycol 3350 [MiraLAX] 17 gm PO DAILY 12/08/16 [History] traMADol [Ultram] 50 mg PO Q8HR 12/08/16 [History] Calcium Carbonate [Tums] 1 tab PO DAILY 12/09/16 [History] - CURRENT (IN HOUSE) MEDS Current Meds: Current Medications Acetaminophen (Tylenol) 650 mg PO Q6H PRN PRN Reason: Pain Last Admin: 12/10/16 08:53 Dose: 650 mg Albuterol (Proventil Neb Soln) 2.5 mg NEB Q4HRRT PRN PRN Reason: Shortness of Breath Last Admin: 12/10/16 17:16 Dose: 2.5 mg Albuterol (Proventil Hfa) 0 gm INH TIDRT [facility] Last Admin: 12/11/16 06:10 Dose: 2 puff Artificial Tears (Isopto Tears 0.5% Ophth Soln) 0 ml EYEBOTH BID [facility] Last Admin: 12/10/16 21:02 Dose: 1 drop Aspirin (Halfprin) 81 mg PO DAILY [facility] Last Admin: 12/10/16 08:52 Dose: 81 mg Calcium Carbonate/Glycine (Tums) 500 mg PO DAILY [facility] Last Admin: 12/10/16 08:51 Dose: 500 mg Dextrose/Water (Dextrose 50% In Water) 50 ml IVPUSH ASDIRECTED PRN PRN Reason: Hypotension Diltiazem HCl (Cardizem Cd) 180 mg PO DAILY [facility] Last Admin: 12/10/16 08:54 Dose: 180 mg Docusate Sodium (Colace) 200 mg PO BID [facility] Last Admin: 12/10/16 21:02 Dose: Not Given Duloxetine HCl (Cymbalta) 60 mg PO DAILY [facility] Last Admin: 12/10/16 08:53 Dose: 60 mg Ferrous Sulfate (Ferrous Sulfate) 325 mg PO DAILY [facility] Last Admin: 12/10/16 08:52 Dose: 325 mg Fluconazole (Diflucan) 100 mg PO DAILY [facility] Last Admin: 12/10/16 10:10 Dose: 100 mg Furosemide (Lasix) 40 mg IVPUSH DAILY [facility] Last Admin: 12/10/16 10:09 Dose: 40 mg Gabapentin (Neurontin) 300 mg PO DAILY [facility] Last Admin: 12/10/16 08:52 Dose: 300 mg Glipizide (Glucotrol Xl) 5 mg PO ACBRK [facility] Last Admin: 12/10/16 06:40 Dose: 5 mg Guaifenesin (Mucinex) 1,200 mg PO BID [facility] Last Admin: 12/10/16 21:02 Dose: 1,200 mg Hydralazine HCl (Apresoline) 10 mg IVPUSH Q4H PRN PRN Reason: Hypertension Levofloxacin/Dextrose 750 mg/ (Premix) 150 mls @ 100 mls/hr IV Q24H [facility] Last Admin: 12/10/16 16:32 Dose: Not Given Piperacillin Sod/Tazobactam (Sod 4.5 gm/ Sodium Chloride) 100 mls @ 25 mls/hr IV Q8H [facility] Last Admin: 12/11/16 09:00 Dose: 25 mls/hr Insulin Aspart (Novolog) 0 unit SUBCUT QIDACANDBED [facility] PRN Reason: Protocol Last Admin: 12/11/16 06:48 Dose: Not Given Methyl Salicylate (Analgesic [place]) 0 gm TOP TID [facility] Last Admin: 12/10/16 21:30 Dose: 1 applic Metoprolol Succinate (Toprol Xl) 25 mg PO DAILY [facility] Last Admin: 12/11/16 09:07 Dose: 25 mg Metoprolol Tartrate (Lopressor) 5 mg IVPUSH Q4H PRN PRN Reason: Tachycardia Last Admin: 12/09/16 21:46 Dose: 5 mg Pantoprazole Sodium (Protonix) 40 mg PO ACBREAKFAST [facility] Last Admin: 12/10/16 06:39 Dose: 40 mg Polyethylene Glycol (Miralax) 17 gm PO DAILY [facility] Last Admin: 12/10/16 08:51 Dose: 17 gm Sodium Chloride (Saline Flush) 10 ml FLUSH ASDIRECTED PRN PRN Reason: Keep Vein Open Tamsulosin HCl (Flomax) 0.4 mg PO DAILY [facility] Last Admin: 12/10/16 08:54 Dose: 0.4 mg Tramadol HCl (Ultram) 50 mg PO Q6H PRN PRN Reason: Pain (severe 7-10) Last Admin: 12/10/16 03:59 Dose: 50 mg Tramadol HCl (Ultram) 50 mg PO Q8HR [facility] Last Admin: 12/10/16 21:02 Dose: 50 mg Vitamin E (Vitamin E) 400 units PO DAILY [facility] Last Admin: 12/10/16 08:54 Dose: 400 units Discontinued Medications Albuterol (Proventil Neb Soln) 2.5 mg NEB ONETIME ONE Stop: 12/11/16 09:01 Last Admin: 12/11/16 08:44 Dose: 2.5 mg Apixaban (Eliquis) 2.5 mg PO BID [facility] Last Admin: 12/09/16 08:43 Dose: 2.5 mg Fentanyl (Sublimaze) Confirm Administered Dose 100 mcg .ROUTE .STK-MED ONE Stop: 12/11/16 10:14 Furosemide (Lasix) 20 mg IVPUSH NOW ONE Stop: 12/08/16 17:16 Last Admin: 12/08/16 17:48 Dose: 20 mg Levofloxacin/Dextrose 750 mg/ (Premix) 150 mls @ 100 mls/hr IV ONETIME ONE Stop: 12/08/16 17:11 Last Admin: 12/08/16 17:00 Dose: 100 mls/hr Piperacillin Sod/Tazobactam (Sod 4.5 gm/ Sodium Chloride) 100 mls @ 200 mls/hr IV ONETIME ONE Stop: 12/08/16 16:20 Last Admin: 12/08/16 16:08 Dose: 200 mls/hr Magnesium Sulfate 2 gm/ Premix 50 mls @ 25 mls/hr IV ONETIME ONE Stop: 12/09/16 09:55 Last Admin: 12/09/16 08:36 Dose: 25 mls/hr Ketamine HCl (Ketalar) Confirm Administered Dose 500 mg .ROUTE .STK-MED ONE Stop: 12/11/16 10:15 Levalbuterol HCl (Xopenex) 1.25 mg NEB QID PRN PRN Reason: Shortness of Breath Metformin HCl (Glucophage) 250 mg PO BIDMEALS [facility] Last Admin: 12/10/16 16:29 Dose: 250 mg Polyethylene Glycol/Electrolytes (Golytely) 4,000 ml PO ONETIME ONE Stop: 12/10/16 17:01 Last Admin: 12/10/16 16:30 Dose: 4,000 ml Propofol (Diprivan 20 Ml) Confirm Administered Dose 200 mg .ROUTE .STK-MED ONE Stop: 12/11/16 10:14 <Paula Henderson - Last Filed: 12/11/16 10:16> Preanesthetic Assessment - Physical Assessment NPO Status Date: 12/11/16 NPO Status Time: 09:00 (sip of water with medication) - Anesthesia Plan Med Last Dose Date: 12/11/16 Med Last Dose Time: 09:00
[2016-12-10] MEDS ORDERED: Polyethylene Glycol/Electrolytes 4,000 ML Bottle PO ONE (17:00)
[2016-12-11] MEDS: Piperacillin/Tazobactam 4.5 GM in Sodium Chloride 0.9% 100 ML IV SCH ×2 (01:05→09:00)
[2016-12-11] MEDS: Albuterol 6.7 GM Inhaler INH SCH ×3 (06:10→20:28)
[2016-12-11] MEDS: Insulin Aspart 100 Units/ML 3 ML Pen SUBCUT SCH ×4 (06:48→21:09)
--- NOTE | 2016-12-11 06:55 | PCM.PN ---
- General Info Date of Service: 12/11/16 Admission Dx/Problem (Free Text): HCAAndrade Matias is seen this morning, resting comfortably. Denies complaints of pain. He is coughing, getting sputum production. No CP, palpitations. Plans for colonoscopy and EGD today with Dr. Diaz for further eval of anemia. He completed prep last night, was hard on him, needed 2 assist to bathroom by end of the night/morning. Functional Status: Reports: Pain Controlled, Ambulating (2 assist this am). Denies: Tolerating Diet (NPO since MN) - Review of Systems General: Reports: Weakness, Fatigue HEENT: Reports: No Symptoms Pulmonary: Reports: Shortness of Breath (mild this morning with exertion), Cough (improving, productive) Cardiovascular: Reports: No Symptoms. Denies: Chest Pain, Palpitations Gastrointestinal: Reports: Diarrhea (due to prep for colonoscopy). Denies: Nausea, Vomiting Genitourinary: Reports: No Symptoms Neurological: Reports: No Symptoms Psychiatric: Reports: No Symptoms - Patient Data Vitals - Most Recent: Last Vital Signs Temp 98.6 F 12/11/16 03:20 Pulse 111 H 12/11/16 03:20 Resp 14 12/11/16 03:20 BP 104/66 12/11/16 03:20 Pulse Ox 94 L 12/11/16 06:11 Weight - Most Recent: 202 lb 4.8 oz I&O - Last 24 Hours: Intake & Output 12/10/16 12/10/16 12/11/16 14:59 22:59 06:59 Intake Total 400 960 850 Output Total 600 5 Balance 400 360 845 Lab Results Last 24 Hours: Laboratory Results - last 24 hr 12/10/16 12/10/16 12/10/16 Range/Units 05:40 10:56 17:07 Sodium 137 (136-145) mEq/L Potassium 3.9 (3.5-5.1) mEq/L Chloride 100 (98-107) mEq/L Carbon Dioxide 27 (21-32) mEq/L Anion Gap 13.9 (5-15) BUN 16 (7-18) mg/dL Creatinine 0.9 (0.7-1.3) mg/dL Est Cr Clr Drug Dosing 53.15 mL/min Estimated GFR (MDRD) > 60 (>60) mL/min BUN/Creatinine Ratio 17.8 (14-18) Glucose 119 H (83-115) mg/dL POC Glucose 138 H 140 H (83-110) mg/dL Calcium 8.6 (8.5-10.1) mg/dL Magnesium 2.0 (1.8-2.4) mg/dl C-Reactive Protein 9.4 H* (<1.0) mg/dL [id number]-[id number] Pept 2005 H (0-450) pg/mL 12/10/16 12/11/16 Range/Units 21:05 06:35 Sodium (136-145) mEq/L Potassium (3.5-5.1) mEq/L Chloride (98-107) mEq/L Carbon Dioxide (21-32) mEq/L Anion Gap (5-15) BUN (7-18) mg/dL Creatinine (0.7-1.3) mg/dL Est Cr Clr Drug Dosing mL/min Estimated GFR (MDRD) (>60) mL/min BUN/Creatinine Ratio (14-18) Glucose (83-115) mg/dL POC Glucose 124 H 116 H (83-110) mg/dL Calcium (8.5-10.1) mg/dL Magnesium (1.8-2.4) mg/dl C-Reactive Protein (<1.0) mg/dL [id number] Pept (0-450) pg/mL Greg Results Last 24 Hours: Microbiology 12/09/16 12:10 Gram Stain - Final Sputum - Expectorated Sputum Culture - Preliminary Gram Positive Cocci YEAST Med Orders - Current: Current Medications Acetaminophen (Tylenol) 650 mg PO Q6H PRN PRN Reason: Pain Last Admin: 12/10/16 08:53 Dose: 650 mg Albuterol (Proventil Neb Soln) 2.5 mg NEB Q4HRRT PRN PRN Reason: Shortness of Breath Last Admin: 12/10/16 17:16 Dose: 2.5 mg Albuterol (Proventil Hfa) 0 gm INH TIDRT [facility] Last Admin: 12/11/16 06:10 Dose: 2 puff Albuterol (Proventil Neb Soln) 2.5 mg NEB ONETIME ONE Stop: 12/11/16 09:01 Artificial Tears (Isopto Tears 0.5% Ophth Soln) 0 ml EYEBOTH BID [facility] Last Admin: 12/10/16 21:02 Dose: 1 drop Aspirin (Halfprin) 81 mg PO DAILY [facility] Last Admin: 12/10/16 08:52 Dose: 81 mg Calcium Carbonate/Glycine (Tums) 500 mg PO DAILY [facility] Last Admin: 12/10/16 08:51 Dose: 500 mg Dextrose/Water (Dextrose 50% In Water) 50 ml IVPUSH ASDIRECTED PRN PRN Reason: Hypotension Diltiazem HCl (Cardizem Cd) 180 mg PO DAILY [facility] Last Admin: 12/10/16 08:54 Dose: 180 mg Docusate Sodium (Colace) 200 mg PO BID [facility] Last Admin: 12/10/16 21:02 Dose: Not Given Duloxetine HCl (Cymbalta) 60 mg PO DAILY [facility] Last Admin: 12/10/16 08:53 Dose: 60 mg Ferrous Sulfate (Ferrous Sulfate) 325 mg PO DAILY [facility] Last Admin: 12/10/16 08:52 Dose: 325 mg Fluconazole (Diflucan) 100 mg PO DAILY [facility] Last Admin: 12/10/16 10:10 Dose: 100 mg Furosemide (Lasix) 40 mg IVPUSH DAILY [facility] Last Admin: 12/10/16 10:09 Dose: 40 mg Gabapentin (Neurontin) 300 mg PO DAILY [facility] Last Admin: 12/10/16 08:52 Dose: 300 mg Glipizide (Glucotrol Xl) 5 mg PO ACBRK [facility] Last Admin: 12/10/16 06:40 Dose: 5 mg Guaifenesin (Mucinex) 1,200 mg PO BID [facility] Last Admin: 12/10/16 21:02 Dose: 1,200 mg Hydralazine HCl (Apresoline) 10 mg IVPUSH Q4H PRN PRN Reason: Hypertension Levofloxacin/Dextrose 750 mg/ (Premix) 150 mls @ 100 mls/hr IV Q24H [facility] Last Admin: 12/10/16 16:32 Dose: Not Given Piperacillin Sod/Tazobactam (Sod 4.5 gm/ Sodium Chloride) 100 mls @ 25 mls/hr IV Q8H [facility] Last Admin: 12/11/16 01:05 Dose: 25 mls/hr Insulin Aspart (Novolog) 0 unit SUBCUT QIDACANDBED [facility] PRN Reason: Protocol Last Admin: 12/11/16 06:48 Dose: Not Given Methyl Salicylate (Analgesic [place]) 0 gm TOP TID [facility] Last Admin: 12/10/16 21:30 Dose: 1 applic Metoprolol Succinate (Toprol Xl) 25 mg PO DAILY [facility] Last Admin: 12/10/16 08:52 Dose: 25 mg Metoprolol Tartrate (Lopressor) 5 mg IVPUSH Q4H PRN PRN Reason: Tachycardia Last Admin: 12/09/16 21:46 Dose: 5 mg Pantoprazole Sodium (Protonix) 40 mg PO ACBREAKFAST [facility] Last Admin: 12/10/16 06:39 Dose: 40 mg Polyethylene Glycol (Miralax) 17 gm PO DAILY [facility] Last Admin: 12/10/16 08:51 Dose: 17 gm Sodium Chloride (Saline Flush) 10 ml FLUSH ASDIRECTED PRN PRN Reason: Keep Vein Open Tamsulosin HCl (Flomax) 0.4 mg PO DAILY [facility] Last Admin: 12/10/16 08:54 Dose: 0.4 mg Tramadol HCl (Ultram) 50 mg PO Q6H PRN PRN Reason: Pain (severe 7-10) Last Admin: 12/10/16 03:59 Dose: 50 mg Tramadol HCl (Ultram) 50 mg PO Q8HR [facility] Last Admin: 12/10/16 21:02 Dose: 50 mg Vitamin E (Vitamin E) 400 units PO DAILY [facility] Last Admin: 12/10/16 08:54 Dose: 400 units Discontinued Medications Apixaban (Eliquis) 2.5 mg PO BID [facility] Last Admin: 12/09/16 08:43 Dose: 2.5 mg Furosemide (Lasix) 20 mg IVPUSH NOW ONE Stop: 12/08/16 17:16 Last Admin: 12/08/16 17:48 Dose: 20 mg Levofloxacin/Dextrose 750 mg/ (Premix) 150 mls @ 100 mls/hr IV ONETIME ONE Stop: 12/08/16 17:11 Last Admin: 12/08/16 17:00 Dose: 100 mls/hr Piperacillin Sod/Tazobactam (Sod 4.5 gm/ Sodium Chloride) 100 mls @ 200 mls/hr IV ONETIME ONE Stop: 12/08/16 16:20 Last Admin: 12/08/16 16:08 Dose: 200 mls/hr Magnesium Sulfate 2 gm/ Premix 50 mls @ 25 mls/hr IV ONETIME ONE Stop: 12/09/16 09:55 Last Admin: 12/09/16 08:36 Dose: 25 mls/hr Levalbuterol HCl (Xopenex) 1.25 mg NEB QID PRN PRN Reason: Shortness of Breath Metformin HCl (Glucophage) 250 mg PO BIDMEALS [facility] Last Admin: 12/10/16 16:29 Dose: 250 mg Polyethylene Glycol/Electrolytes (Golytely) 4,000 ml PO ONETIME ONE Stop: 12/10/16 17:01 Last Admin: 12/10/16 16:30 Dose: 4,000 ml - Exam Quality Assessment: DVT Prophylaxis General: Alert, Oriented, Cooperative, No Acute Distress HEENT: Pupils Equal, Mucous Membr. Moist/[place] Neck: Supple Lungs: Clear to Auscultation, Decreased Breath Sounds (bases), Wheezing Cardiovascular: Irregular Rhythm GI/Abdominal Exam: Soft, Abnormal Bowel Sounds (hyperactive) (Male) Exam: Deferred Extremities: No Pedal Edema, Normal Capillary Refill Peripheral Pulses: 1+: Dorsalis Pedis (L), Dorsalis Pedis (R) Neurological: No New Focal Deficit Psy/Mental Status: Alert, Normal Affect, Normal Mood - Problem List & Annotations (1) Pneumonia SNOMED Code(s): 644638371 Code(s): J18.9 - PNEUMONIA, UNSPECIFIED ORGANISM Status: Acute Priority: High Current Visit: Yes Qualifiers: Pneumonia type: due to unspecified organism Laterality: right Lung location: middle lobe of lung Qualified Code(s): J18.9 - Pneumonia, unspecified organism (2) Anemia SNOMED Code(s): 104168905 Code(s): D64.9 - ANEMIA, UNSPECIFIED Status: Chronic Priority: Medium Current Visit: No Qualifiers: Anemia type: unspecified type Qualified Code(s): D64.9 - Anemia, unspecified (3) Diabetes mellitus SNOMED Code(s): 88870848 Code(s): E11.9 - TYPE 2 DIABETES MELLITUS WITHOUT COMPLICATIONS Status: Chronic Priority: Medium Current Visit: Yes Qualifiers: Diabetes mellitus type: type 2 Diabetes mellitus complication status: with hyperglycemia Diabetes mellitus exterminator helper insulin use: without exterminator helper use Qualified Code(s): E11.65 - Type 2 diabetes mellitus with hyperglycemia (4) Atrial fibrillation SNOMED Code(s): 42843609 Code(s): I48.91 - UNSPECIFIED ATRIAL FIBRILLATION Status: Chronic Priority: Medium Current Visit: Yes Qualifiers: Atrial fibrillation type: chronic Qualified Code(s): I48.2 - Chronic atrial fibrillation (5) COPD (chronic obstructive pulmonary disease) SNOMED Code(s): 18744156 Code(s): J44.9 - CHRONIC OBSTRUCTIVE PULMONARY DISEASE, UNSPECIFIED Status : Chronic Priority: Medium Current Visit: Yes Qualifiers: Emphysema type: unspecified - Problem List Review Problem List Initiated/Reviewed/Updated: Yes - My Orders Last 24 Hours: My Active Orders 12/10/16 10:00 Fluconazole [Diflucan] 100 mg PO DAILY Furosemide [Lasix] 40 mg IVPUSH DAILY - Plan Plan:: Impression: Acute: Healthcare Acquired PNA---improving - RML infiltrate - No longer hypoxic - He is coughing up more phlegm - Mycoplasma negative - Continue IV Zosyn/Levaquin - Sputum Cx/Sx and Strep pneumo Ag test - FV as directed - Mucinex 1200 mg po BID - Follow up CXR - with ? worsening of RML infiltrate, pulmonary vascular congestion suggestive of CHF Anemia, Unspecified - Hgb 9.7--stable 9.8 yesterday--awaiting labs this morning - 6 units PRBCs in 4 weeks - Risk Factor: He is on ASA and Eliquis +/- GERD - GS consulted for planned endoscopy--this morning with Dr. Diaz - Can safely hold eliquis and keep ASA on; resume eliquis once procedure is done Query HF, likely Systolic -BNP elevated -CXR with evidence of CHF -Awaiting old echo reports -Lasix IVP yesterday, follow labs Chronic: CAD/CA Valvular Heart Disease COPD HTN HLD GERD Diabetes Mellitus Atrial Fib with RBBB on Eliquis, HR is controlled RLE ortho procedure 11/06/16 in [place] Plan: He is clinically stable Continue current treatment Routine AM Labs Follow daily labs, keep Hgb>9 General Surgery consult Obtain recent 2D echo DVT/GI prophylaxis Continue /PT/OT SW/CM for d/c planning Likely DC in next 24-48 hours back to [facility] Patient is DNR code status.
[2016-12-11] MEDS ORDERED: Albuterol 0.083% 2.5 MG/3 ML Neb Soln NEB ONE (09:00)
[2016-12-11] MEDS: Metoprolol Succinate 50 MG Tab.ER PO SCH (09:07)
[2016-12-11] MEDS ORDERED: fentaNYL 100 MCG/2 ML SDV ONE (10:13)
[2016-12-11] MEDS ORDERED: Propofol 200 MG/20 ML SDV ONE ×2 (10:13→11:09)
[2016-12-11] MEDS ORDERED: Ketamine 500 mg/10 ML MDV ONE (10:14)
[2016-12-11] MEDS ORDERED: Lidocaine 1% 4 ML ONE (10:52)
[2016-12-11] MEDS ORDERED: Ondansetron 4 MG/2 ML SDV IVPUSH PRN (10:54)
--- NOTE | 2016-12-11 11:25 | PCM.OPNOTE ---
- General Post-Op/Procedure Note Date of Surgery/Procedure: 12/11/16 Operative Procedure(s): EGD with bx and colonoscopy Pre Op Diagnosis: anemai Post-Op Diagnosis: Same Anesthesia Technique: MAC Primary Surgeon: Fabio Diaz EBL in mLs: 0 Complications: None Condition: Good Free Text/Narrative:: Intake & Output 12/10/16 12/11/16 12/11/16 23:59 07:59 15:59 Intake Total 220 850 Output Total 5 Balance 220 845
[2016-12-11] MEDS: Docusate Sodium 100 MG Cap PO SCH ×2 (12:34→20:56)
[2016-12-11] MEDS: Polyethylene Glycol 3350 Powder 17 GM Packet PO SCH (12:34)
[2016-12-11] MEDS: Ferrous Sulfate 325 MG Tab PO SCH (12:35)
[2016-12-11] MEDS: Aspirin 81 MG Tab.EC PO SCH (12:35)
[2016-12-11] MEDS: Saccharomyces Boulardii (Probiotic) 250 MG Cap PO SCH ×2 (12:35→21:47)
[2016-12-11] MEDS: Vitamin E (dl-alpha-tocopherol acetate) 400 Unit Cap PO SCH (12:35)
[2016-12-11] MEDS: Pantoprazole 40 MG Tab.CR PO SCH (12:36)
[2016-12-11] MEDS: Magnesium Oxide 400 MG Tab PO SCH (12:36)
[2016-12-11] MEDS: traMADol 50 MG Tab PO SCH ×3 (12:36→21:49)
[2016-12-11] MEDS: glipiZIDE 5 MG Tab.ER PO SCH (12:36)
[2016-12-11] MEDS: DULoxetine 30 MG Cap PO SCH (12:37)
[2016-12-11] MEDS: Fluconazole 100 MG Tab PO SCH (12:37)
[2016-12-11] MEDS: Calcium Carbonate 500 MG Tab.Chew PO SCH (12:37)
[2016-12-11] MEDS: Tamsulosin 0.4 MG Cap.ER PO SCH (12:37)
[2016-12-11] MEDS: guaiFENesin 600 MG Tab.ER PO SCH ×2 (12:37→21:48)
[2016-12-11] MEDS: Gabapentin 300 MG Cap PO SCH (12:37)
[2016-12-11] MEDS: Diltiazem 180 MG Cap.CD PO SCH (12:38)
[2016-12-11] MEDS: Furosemide 40 MG/4 ML VIAL IVPUSH SCH (12:53)
[2016-12-11] MEDS: Menthol/Methyl Salicylate 29 GM Tube TOP SCH ×3 (12:53→21:48)
--- NOTE | 2016-12-11 12:58 | PCM48HPAN ---
Post Anesthesia Note - EVALUATION WITHIN 48HRS OF ANESTHETIC Vital Signs in Normal Range: Yes Patient Participated in Evaluation: Yes Respiratory Function Stable: Yes Airway Patent: Yes Cardiovascular Function Stable: Yes Hydration Status Stable: Yes Pain Control Satisfactory: Yes Nausea and Vomiting Control Satisfactory: Yes Mental Status Recovered: Yes
[2016-12-11] MEDS: Hypromellose 0.5% Ophth Soln 15 ML Bottle EYEBOTH SCH ×2 (14:26→21:47)
[2016-12-11] MEDS: Metoprolol Tartrate 5 MG/5 ML SDV IVPUSH PRN (15:47)
[2016-12-11] MEDS: Levofloxacin/Dextrose 5%-Water 750 MG in Premix Bag 1 BAG IV SCH (17:30)
[2016-12-12] MEDS: glipiZIDE 5 MG Tab.ER PO SCH (06:27)
[2016-12-12] MEDS: traMADol 50 MG Tab PO SCH (06:28)
[2016-12-12] MEDS: Pantoprazole 40 MG Tab.CR PO SCH (06:28)
[2016-12-12] MEDS: Insulin Aspart 100 Units/ML 3 ML Pen SUBCUT SCH (06:28)
[2016-12-12] MEDS: Albuterol 6.7 GM Inhaler INH SCH (06:46)
--- NOTE | 2016-12-12 06:58 | OR ---
DATE OF OPERATION: 12/11/2016 SURGEON: Fabio Diaz MD PREOPERATIVE DIAGNOSIS: Anemia. POSTOPERATIVE DIAGNOSIS: Anemia. OPERATION PERFORMED: Colonoscopy to the cecum. FINDINGS: [id number] diverticulosis in descending and sigmoid colon. There were no angiodysplasias, neoplasias, large tumor masses, ulcerations, or notable hemorrhoids. ANESTHESIA: Procedure done under IV sedation. DESCRIPTION OF PROCEDURE: The patient having been taken to the endoscopy room, IV sedation initiated for an upper GI endoscopy. This was continued for colonoscopy. He was placed in the left lateral position. The perianal area showed hemorrhoidal tags. Rectal exam showed good sphincter tone. A video Olympus colonoscope was then introduced into the rectum and threaded up to the to the hepatic flexure. Loop coiled and external rotation was unable to control it. He was then placed in the supine position where we were able to advance the scope into the cecum, was able to see the ileocecal valve. Prep was poor. [place] cleansing score grade C and gross lesions were excluded. The scope was advanced slowly, we were able to aspirate in the cecum and then transverse colon and ascending colon, transverse colon, but areas of the splenic flexure and rectum and sigmoid colon were not completely visualized. Scope was then slowly withdrawn showing the cecum, ascending colon, transverse colon, descending colon, sigmoid colon, and rectum. The patient tolerated the procedure and sent to recovery room in a stable condition. ESTIMATED BLOOD LOSS: MMODAL /[id number]
--- NOTE | 2016-12-12 06:58 | OR ---
DATE OF OPERATION: 12/11/2016 SURGEON: Fabio Diaz MD PREOPERATIVE DIAGNOSIS: Blood loss anemia. POSTOPERATIVE DIAGNOSIS: Blood loss anemia. OPERATION PERFORMED: Esophagogastroduodenoscopy with biopsy done under IV sedation. FINDINGS: Antrum showed some thinning of the mucosa consistent with chronic gastritis. The hiatus is intact. The GE junction did not show any acute ulcerations. The second portion of the duodenum, duodenal bulb, pyloric channel, balance of the esophagus, fundus, cardia and body of stomach was free of any acute disease. DESCRIPTION OF PROCEDURE: The patient was taken to the endoscopy room, placed in a supine position, connected to monitoring equipment, placed in a left lateral position. Bite block was inserted and video Olympus gastroscope placed in a posterior oropharynx under direct vision, threaded past the cricopharyngeus, down the esophagus, into the stomach. Stomach was insufflated and the scope passed through the pylorus to the second portion of the duodenum and slowly withdrawn showing normal duodenum, duodenal bulb, pyloric channel. Antrum showed some thinning of the mucosa and this was biopsied, but no ulcerations were noted. The fundus body and cardia were viewed. J-maneuver was performed. The hiatus was intact. The GE junction was located. Scope was then pulled to the GE junction which was at 40 cm, did not show any acute process. Rest of the esophagus was viewed as the scope withdrawn was unremarkable. The patient tolerated the procedure. IV sedation continued for colonoscopy. ANESTHESIA: ESTIMATED BLOOD LOSS: MMODAL /[id number]
--- NOTE | 2016-12-12 08:08 | PCM.DCSUM1 ---
Discharge Summary - Hospital Course Free Text/Narrative:: 85 year old male presented to the ER with SOB associated with productive cough. SOB when lying flat, denies PND. Sedentary has had recent RLE surgery which was "broken in three places". The procedure was performed in [place], he required three units of PRBCs after the surgery. Recently had two additional units of PRBCs this week for persisting anemia. He has had multiple transfusions over the past 2 weeks. He is on blood thinner for afib and CAD history. His last colonoscopy was performed over five years ago. CXR documents a RML. He will be admitted and treated for HCAP/CHF and a request for an anemia work up will also be made. Patient was admitted to MST unit, treated with IV abx, gentle fluid hydration, diuresis. Anemia evaluation was done showing low iron levels, normal B12 and folate levels, negative occult stool. Dr. Diaz was consulted and EGD/ Colonoscopy was scheduled. Findings of gastritis were present with normal colonoscopy study. He is started on BID PPI and Carafate QID. PNA is clinically improved to resolved as is mild CHF exacerbation. He is working with PT/OT doing well with recommendations for continued SNF for further rehabilitation. He is discharged today to [facility] for rehab stay. He is to have follow up with PCP Dr. Turner within one week of discharge, follow up with Dr. Diaz with in 2-3 weeks, repeat CXR in 2 weeks. - Discharge Data Discharge Date: 12/12/16 (admit date 12/08/16) Discharge Disposition: DC/Tfer to SNF 03 Preliminary Cause of *Q: Multi System Organ Failure Condition: Good - Discharge Diagnosis/Problem(s) (1) Pneumonia SNOMED Code(s): 801619158 ICD Code: J18.9 - PNEUMONIA, UNSPECIFIED ORGANISM Status: Acute Priority : High Qualifiers: Pneumonia type: due to unspecified organism Laterality: right Lung location: middle lobe of lung Qualified Code(s): J18.1 - Lobar pneumonia, unspecified organism (2) Anemia SNOMED Code(s): 138599046 ICD Code: D64.9 - ANEMIA, UNSPECIFIED Status: Chronic Priority: Medium Qualifiers: Anemia type: unspecified type Qualified Code(s): D64.9 - Anemia, unspecified (3) Diabetes mellitus SNOMED Code(s): 74985573 ICD Code: E11.9 - TYPE 2 DIABETES MELLITUS WITHOUT COMPLICATIONS Status: Chronic Priority: Medium Qualifiers: Diabetes mellitus type: type 2 Diabetes mellitus complication status: with hyperglycemia 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 use Qualified Code(s): E11.65 - Type 2 diabetes mellitus with hyperglycemia (4) Atrial fibrillation SNOMED Code(s): 01189787 ICD Code: I48.91 - UNSPECIFIED ATRIAL FIBRILLATION Status: Chronic Priority: Medium Qualifiers: Atrial fibrillation type: chronic Qualified Code(s): I48.2 - Chronic atrial fibrillation (5) COPD (chronic obstructive pulmonary disease) SNOMED Code(s): 03967188 ICD Code: J44.9 - CHRONIC OBSTRUCTIVE PULMONARY DISEASE, UNSPECIFIED Status : Chronic Priority: Medium Qualifiers: Emphysema type: unspecified (6) Gastritis SNOMED Code(s): 9730484 ICD Code: K29.70 - GASTRITIS, UNSPECIFIED, WITHOUT BLEEDING Status: Acute Priority: High Qualifiers: Gastritis type: unspecified gastritis - Patient Summary/Data Operative Procedure(s) Performed: EGD with bx and colonoscopy. -Findings of gastritis Complications: None Consults: Consultations 12/08/16 16:56 Consult to Physician [CONS] Routine 12/08/16 17:02 Consult to Case Management [CONS] Routine 12/10/16 09:00 Consult to Occupational Therapy [OT Evaluation and Treatment] [CONS] Routine 12/10/16 11:00 Consult to Physical Therapy [PT Evaluation and Treatment] [CONS] Routine Labs Pending at D/C: None Recommended Follow-up Testing/Procedures: physical & ocupational therapy to eval & treat Gastritis diet. Follow up PCP within one week of discharge, recommend repeat CXR in 2 weeks to assure pneumonia resolved completely. Follow up with Dr. Diaz in 2-3 weeks for recheck after endoscopy. Planned Operative Procedure(s) after DC: None Hospital Course: As above - Patient Instructions Diet: Heart Healthy Diet Diet, Other: Gastritis diet Activity: As Tolerated (PT/OT to continue at SNF) Driving: Do Not Drive Showering/Bathing: May Shower Notify Provider of: Fever, Increased Pain, Swelling and Redness, Nausea and/or Vomiting - Discharge Plan Prescriptions/Med Rec: Fluconazole [Diflucan] 100 mg PO DAILY #10 tablet Furosemide [Lasix] 20 mg PO DAILY #30 tablet Levofloxacin [Levaquin] 500 mg PO DAILY #3 tablet Magnesium Oxide 400 mg PO DAILY #30 tablet Metoprolol Succinate 50 mg PO DAILY #30 tab.er.24h Omeprazole 20 mg PO BIDAC #60 cap.cr Sucralfate [Carafate] 1 gm PO QIDACANDBED #240 ml guaiFENesin [Mucinex] 1,200 mg PO BID #30 tab.er Home Medications: Home Meds Albuterol Sulfate [Proair Respiclick] 2 puff INH TID 04/13/15 [History] Aspirin [Low Dose Aspirin EC] 81 mg PO DAILY 04/13/15 [History] DULoxetine [Cymbalta] 60 mg PO DAILY 04/13/15 [History] Docusate Sodium [Colace] 200 mg PO BID 04/13/15 [History] Ferrous Sulfate 324 mg PO DAILY 04/13/15 [History] Pantoprazole [ProTONIX] 40 mg PO DAILY 04/13/15 [History] Vitamin E 1 tab PO DAILY 04/13/15 [History] glipiZIDE [Glucotrol XL] 5 mg PO ACBREAKFAST 04/13/15 [History] Propylene Glycol/Peg 400 [Systane 0.3-0.4% Eye Drops] 1 drop EYEBOTH BID [History] Tamsulosin [Flomax] 0.4 mg PO DAILY 09/08/15 [History] Acetaminophen 650 mg PO Q6H PRN 11/05/16 [History] Diltiazem [Cardizem CD] 180 mg PO DAILY 11/05/16 [History] metFORMIN [Glucophage] 250 mg PO BIDMEALS 11/05/16 [History] traMADol [Ultram] 50 mg PO Q6H PRN 12/06/16 [History] Apixaban [Eliquis] 5 mg PO BID 12/08/16 [History] Gabapentin [Neurontin] 300 mg PO DAILY 12/08/16 [History] Polyethylene Glycol 3350 [MiraLAX] 17 gm PO DAILY 12/08/16 [History] traMADol [Ultram] 50 mg PO Q8HR 12/08/16 [History] Calcium Carbonate [Tums] 1 tab PO DAILY 12/09/16 [History] Fluconazole [Diflucan] 100 mg PO DAILY #10 tablet 12/12/16 [Rx] Furosemide [Lasix] 20 mg PO DAILY #30 tablet 12/12/16 [Rx] Levofloxacin [Levaquin] 500 mg PO DAILY #3 tablet 12/12/16 [Rx] Magnesium Oxide 400 mg PO DAILY #30 tablet 12/12/16 [Rx] Metoprolol Succinate 50 mg PO DAILY #30 tab.er.24h 12/12/16 [Rx] Omeprazole 20 mg PO BIDAC #60 cap.cr 12/12/16 [Rx] Sucralfate [Carafate] 1 gm PO QIDACANDBED #240 ml 12/12/16 [Rx] guaiFENesin [Mucinex] 1,200 mg PO BID #30 tab.er 12/12/16 [Rx] Patient Handouts: Gastritis, Adult, [id number], Anemia, Nonspecific, Benign Prostatic Hyperplasia, Heart Failure, Ypec-hl-Pgix, Managing Your High Blood Pressure, Atrial Fibrillation, Ikmj-de-Ioue, Hypertension, Community-Acquired Pneumonia, Adult, Phpb-[id number] Forms: ED Department Discharge Referrals: Juma Turner MD [Primary Care Provider] - - Discharge Summary/Plan Comment DC Time >30 min.: Yes (40 min) - Patient Data Vitals - Most Recent: Last Vital Signs Temp 98.2 F 12/12/16 07:22 Pulse 99 12/12/16 07:22 Resp 22 H 12/12/16 07:22 BP 115/66 12/12/16 07:22 Pulse Ox 92 L 12/12/16 07:22 Weight - Most Recent: 197 lb 5 oz I&O - Last 24 hours: Intake & Output 12/11/16 12/12/16 12/12/16 22:59 06:59 14:59 Intake Total 1225 450 Balance 1225 450 Lab Results - Last 24 hrs: Laboratory Results - last 24 hr 12/11/16 12/11/16 12/11/16 Range/Units 13:18 17:18 20:31 WBC (4.23-9.07) K/mm3 RBC (4.63-6.08) M/mm3 Hgb (13.7-17.5) gm/L Hct (40.1-51.0) % MCV (79.0-92.2) fl MCH (25.7-32.2) pg MCHC (32.2-35.5) g/dl RDW Std Deviation (35.1-43.9) fL Plt Count (163-337) K/mm3 MPV (9.4-12.3) fl Neut % (Auto) (34.0-67.9) % Lymph % (Auto) (21.8-53.1) % [place] % (Auto) (5.3-12.2) % Eos % (Auto) (0.8-7.0) Baso % (Auto) (0.1-1.2) % Neut # (Auto) (1.78-5.38) K/mm3 Lymph # (Auto) (1.32-3.57) K/mm3 [place] # (Auto) (0.30-0.82) K/mm3 Eos # (Auto) (0.04-0.54) K/mm3 Baso # (Auto) (0.01-0.08) K/mm3 Sodium (136-145) mEq/L Potassium (3.5-5.1) mEq/L Chloride (98-107) mEq/L Carbon Dioxide (21-32) mEq/L Anion Gap (5-15) BUN (7-18) mg/dL Creatinine (0.7-1.3) mg/dL Est Cr Clr Drug Dosing mL/min Estimated GFR (MDRD) (>60) mL/min BUN/Creatinine Ratio (14-18) Glucose (83-115) mg/dL POC Glucose 125 H 153 H 143 H (83-110) mg/dL Calcium (8.5-10.1) mg/dL Magnesium (1.8-2.4) mg/dl C-Reactive Protein (<1.0) mg/dL 12/12/16 12/12/16 12/12/16 Range/Units 05:50 05:50 06:26 WBC 6.26 (4.23-9.07) K/mm3 RBC 3.35 L (4.63-6.08) M/mm3 Hgb 10.3 L (13.7-17.5) gm/L Hct 31.7 L (40.1-51.0) % MCV 94.6 H (79.0-92.2) fl MCH 30.7 (25.7-32.2) pg MCHC 32.5 (32.2-35.5) g/dl RDW Std Deviation 69.2 H (35.1-43.9) fL Plt Count 165 (163-337) K/mm3 MPV 10.2 (9.4-12.3) fl Neut % (Auto) 59.6 (34.0-67.9) % Lymph % (Auto) 27.5 (21.8-53.1) % [place] % (Auto) 8.8 (5.3-12.2) % Eos % (Auto) 3.4 (0.8-7.0) Baso % (Auto) 0.2 (0.1-1.2) % Neut # (Auto) 3.74 (1.78-5.38) K/mm3 Lymph # (Auto) 1.72 (1.32-3.57) K/mm3 [place] # (Auto) 0.55 (0.30-0.82) K/mm3 Eos # (Auto) 0.21 (0.04-0.54) K/mm3 Baso # (Auto) 0.01 (0.01-0.08) K/mm3 Sodium 137 (136-145) mEq/L Potassium 3.6 (3.5-5.1) mEq/L Chloride 100 (98-107) mEq/L Carbon Dioxide 28 (21-32) mEq/L Anion Gap 12.6 (5-15) BUN 14 (7-18) mg/dL Creatinine 1.0 (0.7-1.3) mg/dL Est Cr Clr Drug Dosing 47.83 mL/min Estimated GFR (MDRD) > 60 (>60) mL/min BUN/Creatinine Ratio 14.0 (14-18) Glucose 125 H (83-115) mg/dL POC Glucose 119 H (83-110) mg/dL Calcium 8.9 (8.5-10.1) mg/dL Magnesium 1.6 L (1.8-2.4) mg/dl C-Reactive Protein 6.5 H* (<1.0) mg/dL PROSPER Results - Last 24 hrs: Microbiology 12/09/16 12:10 Gram Stain - Final Sputum - Expectorated Sputum Culture - Final Staphylococcus Aureus [place] Albicans 12/08/16 16:20 Streptococcus pneumoniae Antigen (M - Final Urine Med Orders - Current: Current Medications Acetaminophen (Tylenol) 650 mg PO Q6H PRN PRN Reason: Pain Last Admin: 12/10/16 08:53 Dose: 650 mg Albuterol (Proventil Neb Soln) 2.5 mg NEB Q4HRRT PRN PRN Reason: Shortness of Breath Last Admin: 12/10/16 17:16 Dose: 2.5 mg Albuterol (Proventil Hfa) 0 gm INH TIDRT [facility] Last Admin: 12/12/16 06:46 Dose: 2 puff Artificial Tears (Isopto Tears 0.5% Ophth Soln) 0 ml EYEBOTH BID [facility] Last Admin: 12/11/16 21:47 Dose: 1 drop Aspirin (Halfprin) 81 mg PO DAILY [facility] Last Admin: 12/11/16 12:35 Dose: 81 mg Calcium Carbonate/Glycine (Tums) 500 mg PO DAILY [facility] Last Admin: 12/11/16 12:37 Dose: 500 mg Dextrose/Water (Dextrose 50% In Water) 50 ml IVPUSH ASDIRECTED PRN PRN Reason: Hypotension Diltiazem HCl (Cardizem Cd) 180 mg PO DAILY [facility] Last Admin: 12/11/16 12:38 Dose: 180 mg Docusate Sodium (Colace) 200 mg PO BID [facility] Last Admin: 12/11/16 20:56 Dose: Not Given Duloxetine HCl (Cymbalta) 60 mg PO DAILY [facility] Last Admin: 12/11/16 12:37 Dose: 60 mg Ferrous Sulfate (Ferrous Sulfate) 325 mg PO DAILY [facility] Last Admin: 12/11/16 12:35 Dose: 325 mg Fluconazole (Diflucan) 100 mg PO DAILY [facility] Last Admin: 12/11/16 12:37 Dose: 100 mg Furosemide (Lasix) 40 mg IVPUSH DAILY [facility] Last Admin: 12/11/16 12:53 Dose: 40 mg Gabapentin (Neurontin) 300 mg PO DAILY [facility] Last Admin: 12/11/16 12:37 Dose: 300 mg Glipizide (Glucotrol Xl) 5 mg PO ACBRK [facility] Last Admin: 12/12/16 06:27 Dose: 5 mg Guaifenesin (Mucinex) 1,200 mg PO BID [facility] Last Admin: 12/11/16 21:48 Dose: 1,200 mg Hydralazine HCl (Apresoline) 10 mg IVPUSH Q4H PRN PRN Reason: Hypertension Levofloxacin/Dextrose 750 mg/ (Premix) 150 mls @ 100 mls/hr IV Q24H [facility] Last Admin: 12/11/16 17:30 Dose: 100 mls/hr Insulin Aspart (Novolog) 0 unit SUBCUT QIDACANDBED [facility] PRN Reason: Protocol Last Admin: 12/12/16 06:28 Dose: Not Given Magnesium Oxide (Magnesium Oxide) 400 mg PO DAILY [facility] Last Admin: 12/11/16 12:36 Dose: 400 mg Methyl Salicylate (Analgesic [place]) 0 gm TOP TID [facility] Last Admin: 12/11/16 21:48 Dose: 1 applic Metoprolol Succinate (Toprol Xl) 25 mg PO DAILY [facility] Last Admin: 12/11/16 09:07 Dose: 25 mg Metoprolol Tartrate (Lopressor) 5 mg IVPUSH Q4H PRN PRN Reason: Tachycardia Last Admin: 12/11/16 15:47 Dose: 5 mg Pantoprazole Sodium (Protonix) 40 mg PO ACBREAKFAST [facility] Last Admin: 12/12/16 06:28 Dose: 40 mg Polyethylene Glycol (Miralax) 17 gm PO DAILY [facility] Last Admin: 12/11/16 12:34 Dose: Not Given Saccharomyces Boulardii (Florastor) 250 mg PO BID [facility] Last Admin: 12/11/16 21:47 Dose: 250 mg Sodium Chloride (Saline Flush) 10 ml FLUSH ASDIRECTED PRN PRN Reason: Keep Vein Open Tamsulosin HCl (Flomax) 0.4 mg PO DAILY [facility] Last Admin: 12/11/16 12:37 Dose: 0.4 mg Tramadol HCl (Ultram) 50 mg PO Q6H PRN PRN Reason: Pain (severe 7-10) Last Admin: 12/10/16 03:59 Dose: 50 mg Tramadol HCl (Ultram) 50 mg PO Q8HR [facility] Last Admin: 12/12/16 06:28 Dose: 50 mg Vitamin E (Vitamin E) 400 units PO DAILY [facility] Last Admin: 12/11/16 12:35 Dose: 400 units Discontinued Medications Albuterol (Proventil Neb Soln) 2.5 mg NEB ONETIME ONE Stop: 12/11/16 09:01 Last Admin: 12/11/16 08:44 Dose: 2.5 mg Apixaban (Eliquis) 2.5 mg PO BID [facility] Last Admin: 12/09/16 08:43 Dose: 2.5 mg Fentanyl (Sublimaze) Confirm Administered Dose 100 mcg .ROUTE .STK-MED ONE Stop: 12/11/16 10:14 Furosemide (Lasix) 20 mg IVPUSH NOW ONE Stop: 12/08/16 17:16 Last Admin: 12/08/16 17:48 Dose: 20 mg Levofloxacin/Dextrose 750 mg/ (Premix) 150 mls @ 100 mls/hr IV ONETIME ONE Stop: 12/08/16 17:11 Last Admin: 12/08/16 17:00 Dose: 100 mls/hr Piperacillin Sod/Tazobactam (Sod 4.5 gm/ Sodium Chloride) 100 mls @ 200 mls/hr IV ONETIME ONE Stop: 12/08/16 16:20 Last Admin: 12/08/16 16:08 Dose: 200 mls/hr Piperacillin Sod/Tazobactam (Sod 4.5 gm/ Sodium Chloride) 100 mls @ 25 mls/hr IV Q8H [facility] Last Admin: 12/11/16 09:00 Dose: 25 mls/hr Magnesium Sulfate 2 gm/ Premix 50 mls @ 25 mls/hr IV ONETIME ONE Stop: 12/09/16 09:55 Last Admin: 12/09/16 08:36 Dose: 25 mls/hr Lidocaine HCl (Xylocaine-Mpf 1%) Confirm Administered Dose 4 mls @ as directed .ROUTE .STK-MED ONE Stop: 12/11/16 10:53 Ketamine HCl (Ketalar) Confirm Administered Dose 500 mg .ROUTE .STK-MED ONE Stop: 12/11/16 10:15 Levalbuterol HCl (Xopenex) 1.25 mg NEB QID PRN PRN Reason: Shortness of Breath [facility] Last Admin: 12/10/16 16:29 Dose: 250 mg Ondansetron HCl (Zofran) 4 mg IVPUSH ONETIME PRN PRN Reason: Nausea/Vomiting Stop: 12/11/16 13:30 Polyethylene Glycol/Electrolytes (Golytely) 4,000 ml PO ONETIME ONE Stop: 12/10/16 17:01 Last Admin: 12/10/16 16:30 Dose: 4,000 ml Propofol (Diprivan 20 Ml) Confirm Administered Dose 200 mg .ROUTE .STK-MED ONE Stop: 12/11/16 10:14 Propofol (Diprivan 20 Ml) Confirm Administered Dose 200 mg .ROUTE .STK-MED ONE Stop: 12/11/16 11:10 *Q Meaningful Use (DIS) - VTE *Q VTE Criteria *Q: - Stroke *Q Stroke Criteria *Q: - AMI *Q AMI Criteria *Q:
[2016-12-12] MEDS: Calcium Carbonate 500 MG Tab.Chew PO SCH (08:10)
[2016-12-12] MEDS: Tamsulosin 0.4 MG Cap.ER PO SCH (08:10)
[2016-12-12] MEDS: DULoxetine 30 MG Cap PO SCH (08:10)
[2016-12-12] MEDS: Saccharomyces Boulardii (Probiotic) 250 MG Cap PO SCH (08:11)
[2016-12-12] MEDS: Polyethylene Glycol 3350 Powder 17 GM Packet PO SCH (08:11)
[2016-12-12] MEDS: Furosemide 40 MG/4 ML VIAL IVPUSH SCH (08:11)
[2016-12-12] MEDS: guaiFENesin 600 MG Tab.ER PO SCH (08:12)
[2016-12-12] MEDS: Docusate Sodium 100 MG Cap PO SCH (08:12)
[2016-12-12] MEDS: Ferrous Sulfate 325 MG Tab PO SCH (08:13)
[2016-12-12] MEDS: Vitamin E (dl-alpha-tocopherol acetate) 400 Unit Cap PO SCH (08:13)
[2016-12-12] MEDS: Metoprolol Succinate 50 MG Tab.ER PO SCH (08:13)
[2016-12-12] MEDS: Fluconazole 100 MG Tab PO SCH (08:13)
[2016-12-12] MEDS: Aspirin 81 MG Tab.EC PO SCH (08:13)
[2016-12-12] MEDS: Magnesium Oxide 400 MG Tab PO SCH (08:13)
[2016-12-12] MEDS: Gabapentin 300 MG Cap PO SCH (08:13)
[2016-12-12] MEDS: Hypromellose 0.5% Ophth Soln 15 ML Bottle EYEBOTH SCH (08:14)
[2016-12-12] MEDS: Diltiazem 180 MG Cap.CD PO SCH (08:14)
[2016-12-12] MEDS ORDERED: Metoprolol Succinate 25 MG Tab.ER PO ONE (08:25)
[2016-12-12] MEDS: Metoprolol Tartrate 5 MG/5 ML SDV IVPUSH PRN (09:40)
[2016-12-12 10:47] VITALS: BP 106/67
[2016-12-12] MEDS: Menthol/Methyl Salicylate 29 GM Tube TOP SCH (11:03)
== END 2016-12-12 10:40 | DRG 190 ==
LOC: JD.ED 13:22 → JD.MS 16:00 → UNDOADMIN 16:00 → JD.MS 18:05 → UNDODISIN 12-12 10:40
PROVIDERS: ADMIT Internal Medicine Cardiovascular Disease; ATTEND Internal Medicine Cardiovascular Disease
PROC: 0DB68ZX Excision of Stomach, Via Natural or Artificial Opening Endoscopic, Diagnostic (ICD-10-PCS; principal; 2016-12-11)
PROC: 0DJD8ZZ Inspection of Lower Intestinal Tract, Via Natural or Artificial Opening Endoscopic (ICD-10-PCS; 2016-12-11)
PROC: B24BZZZ Ultrasonography of Heart with Aorta (ICD-10-PCS; 2016-12-11)
DX: J44.0 Chronic obstructive pulmonary disease with (acute) lower respiratory infection (principal); J18.1 Lobar pneumonia, unspecified organism; I50.23 Acute on chronic systolic (congestive) heart failure; Y95 Nosocomial condition; D64.9 Anemia, unspecified; K29.70 Gastritis, unspecified, without bleeding; I11.0 Hypertensive heart disease with heart failure; E78.5 Hyperlipidemia, unspecified; K21.9 Gastro-esophageal reflux disease without esophagitis; I48.2 Chronic atrial fibrillation; E11.65 Type 2 diabetes mellitus with hyperglycemia; Z66 Do not resuscitate; I25.2 Old myocardial infarction; Z98.890 Other specified postprocedural states; Z87.891 Personal history of nicotine dependence; Z79.82 Long term (current) use of aspirin; Z79.84 Long term (current) use of oral hypoglycemic drugs; Z79.01 Long term (current) use of anticoagulants; Z79.899 Other long term (current) drug therapy; K57.30 Diverticulosis of large intestine without perforation or abscess without bleeding
CPT/HCPCS: 00810; 36415; 71010; 71010-26; 80048; 80053; 81001; 82962; 83605; 83735; 83880; 84484; 85025; 86140; 86738; 87040; 87070; 87077; 87106; 87186; 87205; 87641; 87899; 88305; 93005; 93306; 94640; 94640-76; 94664; 94667; 94668; 94761; 94762; 96365; 97110-GO; 97110-GP; 97162-GP; 97167-GO; 97530-GO; 99284; 99285-25; A9270-GY; J1815-GY; J1940; J1956; J2543; J2704; J3010; J3475; J3490; J7030

== ENCOUNTER 2017-04-23 07:18 | Inpatient (IN) | payer MEDICARE, BC, MEDICAID ==
[2017-04-23] MEDS ORDERED: Sodium Chloride 0.9% 10 ML Syringe FLUSH PRN (07:39)
[2017-04-23] MEDS ORDERED: Levofloxacin/Dextrose 5%-Water 750 MG in Premix Bag 1 BAG IV ONE (07:44)
[2017-04-23] MEDS ORDERED: Acetaminophen 325 MG Tab PO ONE (07:46)
--- NOTE | 2017-04-23 07:51 | EDM.PDOC ---
ED HPI GENERAL MEDICAL PROBLEM - General Chief Complaint: Possible Sepsis Stated Complaint: [facility] Time Seen by Provider: 04/23/17 07:31 Source of Information: Reports: Patient, Half-Way Records History Limitations: Reports: Altered Mental Status (Confused) - History of Present Illness INITIAL COMMENTS - FREE TEXT/NARRATIVE: The patient presents from [facility] by ambulance with confusion. This has been going on for a few days. He also has a temp of 102 when he arrived here. He denies a headache, ear pain, sore throat, chest pain, shortness of breath, cough, abdominal pain nausea or vomiting. He does have generalized weakness. His urine was very concentrated. Onset: Gradual Duration: Day(s): Severity: Moderate Improves with: Reports: None Worsens with: Reports: None Associated Symptoms: Reports: Fever/Chills, Weakness (Generalized). Denies: Chest Pain, Cough, Headaches, Loss of Appetite, Nausea/Vomiting, Shortness of Breath - Related Data Allergies Allergy/AdvReac Type Severity Reaction Status Date / Time No Known Allergies Allergy Verified 12/08/16 13:41 Home Meds: Home Meds Albuterol Sulfate [Proair Respiclick] 2 puff INH TID 04/13/15 [History] Aspirin [Low Dose Aspirin EC] 81 mg PO DAILY 04/13/15 [History] DULoxetine [Cymbalta] 60 mg PO DAILY 04/13/15 [History] Docusate Sodium [Colace] 200 mg PO BID 04/13/15 [History] Ferrous Sulfate 324 mg PO DAILY 04/13/15 [History] Pantoprazole [ProTONIX] 40 mg PO DAILY 04/13/15 [History] Vitamin E 1 tab PO DAILY 04/13/15 [History] glipiZIDE [Glucotrol XL] 5 mg PO ACBREAKFAST 04/13/15 [History] Propylene Glycol/Peg 400 [Systane 0.3-0.4% Eye Drops] 1 drop EYEBOTH BID [History] Tamsulosin [Flomax] 0.4 mg PO DAILY 09/08/15 [History] Acetaminophen 650 mg PO Q6H PRN 11/05/16 [History] Diltiazem [Cardizem CD] 180 mg PO DAILY 11/05/16 [History] metFORMIN [Glucophage] 250 mg PO BIDMEALS 11/05/16 [History] traMADol [Ultram] 50 mg PO Q6H PRN 12/06/16 [History] Apixaban [Eliquis] 5 mg PO BID 12/08/16 [History] Gabapentin [Neurontin] 300 mg PO DAILY 12/08/16 [History] Polyethylene Glycol 3350 [MiraLAX] 17 gm PO DAILY 12/08/16 [History] traMADol [Ultram] 50 mg PO Q8HR 12/08/16 [History] Calcium Carbonate [Tums] 1 tab PO DAILY 12/09/16 [History] Fluconazole [Diflucan] 100 mg PO DAILY #10 tablet 12/12/16 [Rx] Furosemide [Lasix] 20 mg PO DAILY #30 tablet 12/12/16 [Rx] Levofloxacin [Levaquin] 500 mg PO DAILY #3 tablet 12/12/16 [Rx] Magnesium Oxide 400 mg PO DAILY #30 tablet 12/12/16 [Rx] Metoprolol Succinate 50 mg PO DAILY #30 tab.er.24h 12/12/16 [Rx] Omeprazole 20 mg PO BIDAC #60 cap.cr 12/12/16 [Rx] Sucralfate [Carafate] 1 gm PO QIDACANDBED #240 ml 12/12/16 [Rx] guaiFENesin [Mucinex] 1,200 mg PO BID #30 tab.er 12/12/16 [Rx] Past Medical History HEENT History: Reports: Cataract, Impaired Vision Cardiovascular History: Reports: Afib, Angina, Arrhythmia, Hypertension, AR, Other (See Below) Other Cardiovascular History: Nonrheumatic aortic valve disorder, atherosclerotic heart disease Respiratory History: Reports: Asthma, Bronchitis, Recurrent, COPD, Pneumonia, Recurrent Gastrointestinal History: Reports: GERD, Hemorrhoids Genitourinary History: Reports: BPH, Renal Calculus, Renal Disease Musculoskeletal History: Reports: Arthritis, Back Pain, Chronic, Fracture, Osteoarthritis Neurological History: Reports: CVA Psychiatric History: Reports: Depression Endocrine/Metabolic History: Reports: Diabetes, Type II Hematologic History: Reports: Anemia, Iron Deficiency Oncologic (Cancer) History: Reports: None - Infectious Disease History Infectious Disease History: Reports: Chicken Pox - Past Surgical History HEENT Surgical History: Reports: Cataract Surgery GI Surgical History: Reports: Appendectomy, Cholecystectomy, Colonoscopy Musculoskeletal Surgical History: Reports: Other (See Below) Other Musculoskeletal Surgeries/Procedures:: femur fx surgery Social & Family History - Family History Family Medical History: Noncontributory Cardiac: Reports: AR Other Cardiac Family History: twin brother Hematologic: Reports: Anemia Oncologic: Reports: Hodgkin's Lymphoma, Leukemia, Lung - Tobacco Use Smoking Status *Q: Never Smoker Years of Tobacco use: 50 Packs/Tins Daily: 1 Used Tobacco, but Quit: Yes Month Tobacco Last Used: 1969 Second Hand Smoke Exposure: No - Caffeine Use Caffeine Use: Reports: Coffee, Soda, Other Other Caffeine Use: diet soda - Alcohol Use Days Per Week of Alcohol Use: 0 - Recreational Drug Use Recreational Drug Use: No - Living Situation & Occupation Living situation: Reports: Alone, Assisted Living ED ROS GENERAL - Review of Systems Review Of Systems: See Below Constitutional: Reports: Fever, Chills, Malaise, Weakness, Fatigue HEENT: Reports: No Symptoms Respiratory: Reports: No Symptoms Cardiovascular: Reports: No Symptoms Endocrine: Reports: No Symptoms GI/Abdominal: Reports: No Symptoms : Reports: No Symptoms Musculoskeletal: Reports: No Symptoms Skin: Reports: No Symptoms Neurological: Reports: Confusion ED EXAM, SEPSIS - Physical Exam Exam: See Below Exam Limited By: Altered Mental Status (Slightly confused) General Appearance: Alert, No Apparent Distress Ears: Normal External Exam Nose: Normal Inspection Head: Atraumatic, Normocephalic Neck: Normal Inspection Respiratory/Chest: No Respiratory Distress, Rhonchi Cardiovascular: Regular Rate, Rhythm, No Edema, No Murmur GI/Abdominal Exam: Soft, Non-Tender, No Organomegaly, No Mass Extremities: Normal Inspection Neurological: Alert, No Motor/Sensory Deficits, Other (slightly confused) Course - Vital Signs Last Recorded V/S: Last Vital Signs Temp 102.5 F H 04/23/17 08:35 Pulse 92 04/23/17 07:18 Resp 36 H 04/23/17 07:18 BP 95/63 04/23/17 07:18 Pulse Ox 88 L 04/23/17 07:18 - Orders/Labs/Meds Orders: Active Orders 24 hr Category Date Time Status Cardiac Monitoring [RC] . DIRECTED Care 04/23/17 07:39 Active Oxygen Therapy [RC] PRN Care 04/23/17 07:39 Active Peripheral IV Care [RC] . DIRECTED Care 04/23/17 07:41 Active Chest 1V Frontal [CR] Stat Exams 04/23/17 07:42 Taken CBC WITH MANUAL DIFF [HEME] Stat Lab 04/23/17 08:10 Results CULTURE BLOOD [BC] Stat Lab 04/23/17 08:10 Received CULTURE BLOOD [BC] Stat Lab 04/23/17 08:30 Received Sodium Chloride 0.9% [Normal Saline] 1,900 ml Med 04/23/17 07:45 Active IV .BOLUS Sodium Chloride 0.9% [Saline Flush] Med 04/23/17 07:39 Active 10 ml FLUSH ASDIRECTED PRN Blood Culture x2 Reflex Set [OM.PC] Stat Oth 04/23/17 07:42 Ordered Peripheral IV Insertion Adult [OM.PC] Stat Oth 04/23/17 07:39 Ordered Medication Orders Sodium Chloride (Normal Saline) 1,900 mls @ 1,000 mls/hr IV .BOLUS MALA Last Admin: 04/23/17 07:55 Dose: 1,000 mls/hr Sodium Chloride (Saline Flush) 10 ml FLUSH ASDIRECTED PRN PRN Reason: Keep Vein Open Last Admin: 04/23/17 07:50 Dose: 10 ml Labs: Laboratory Tests 04/23/17 04/23/17 04/23/17 Range/Units 07:35 08:10 08:10 WBC 40.53 H (4.23-9.07) K/mm3 RBC 3.24 L (4.63-6.08) M/mm3 Hgb 11.4 L (13.7-17.5) gm/L Hct 34.2 L (40.1-51.0) % MCV 105.6 H (79.0-92.2) fl MCH 35.2 H (25.7-32.2) pg MCHC 33.3 (32.2-35.5) g/dl RDW Std Deviation 86.6 H (35.1-43.9) fL Plt Count 204 (163-337) K/mm3 MPV 10.5 (9.4-12.3) fl Neut % (Auto) Cancelled Lymph % (Auto) Cancelled [place] % (Auto) Cancelled Eos % (Auto) Cancelled Baso % (Auto) Cancelled Neut # (Auto) Cancelled Lymph # (Auto) Cancelled [place] # (Auto) Cancelled Eos # (Auto) Cancelled Baso # (Auto) Cancelled Neutrophils % (Manual) 30 L (40-60) % Band Neutrophils % 33 H (0-10) % Lymphocytes % (Manual) 19 L (20-40) % Atypical Lymphs % 7 % Monocytes % (Manual) 3 (2-10) % Eosinophils % (Manual) 7 (0.8-7.0) % Basophils % (Manual) 0 L (0.2-1.2) Metamyelocytes % 1 Nucleated RBCs 5.0 % Manual Slide Review Cancelled Toxic Granulation 1+ slight Platelet Estimate Adequate Plt Morphology Comment Normal Polychromasia 1+ slight Poikilocytosis 2+ moderate Basophilic Stippling 2+ moderate Anisocytosis 3+ marked Macrocytosis Moderate Target Cells Few Ovalocytes Moderate Stomatocytes Few Acanthocytes (Spur) Few Schistocytes Few RBC Morph Comment Not Reportable Sodium 135 L (136-145) mEq/L Potassium 4.0 (3.5-5.1) mEq/L Chloride 98 (98-107) mEq/L Carbon Dioxide 27 (21-32) mEq/L Anion Gap 14.0 (5-15) BUN 17 (7-18) mg/dL Creatinine 1.2 (0.7-1.3) mg/dL Est Cr Clr Drug Dosing 39.15 mL/min Estimated GFR (MDRD) 58 (>60) mL/min BUN/Creatinine Ratio 14.2 (14-18) Glucose 372 H (83-115) mg/dL Lactic Acid (0.4-2.0) mmol/L Calcium 8.5 (8.5-10.1) mg/dL Total Bilirubin 1.5 H (0.2-1.0) mg/dL AST 15 (15-37) U/L ALT 20 (16-63) U/L Alkaline Phosphatase 84 (46-116) U/L C-Reactive Protein < 0.2 (<1.0) mg/dL Total Protein 5.7 L (6.4-8.2) g/dl Albumin 3.3 L (3.4-5.0) g/dl Globulin 2.4 gm/dL Albumin/Globulin Ratio 1.4 (1-2) Urine Color Dark yellow (Yellow) Urine Appearance Slt cloudy H (Clear) Urine pH 5.0 (5.0-8.0) Ur Specific [place] 1.025 (1.005-1.030) Urine Protein 1+ H (Negative) Urine Glucose (UA) Negative (Negative) Urine Ketones Trace H (Negative) Urine Occult Blood Negative (Negative) Urine Nitrite Negative (Negative) Urine Bilirubin 2+ H (Negative) Urine Urobilinogen 2.0 H (0.2-1.0) Ur Leukocyte Esterase Negative (Negative) Urine RBC 0-5 (0-5) /hpf Urine WBC 0-5 (0-5) /hpf Ur Epithelial Cells 10-20 H (0-5) /hpf Ur Transition Epith Cell 0-5 (0-5) Ur Renal Epithelial Cell 5-10 H (0-5) /hpf Amorphous Sediment Few H (NOT SEEN) /hpf Urine Bacteria Moderate H (FEW) /hpf Hyaline Casts 5-10 H (0-5) /lpf Urine Mucus Not seen (FEW) /hpf 04/23/17 Range/Units 08:10 WBC (4.23-9.07) K/mm3 RBC (4.63-6.08) M/mm3 Hgb (13.7-17.5) gm/L Hct (40.1-51.0) % MCV (79.0-92.2) fl MCH (25.7-32.2) pg MCHC (32.2-35.5) g/dl RDW Std Deviation (35.1-43.9) fL Plt Count (163-337) K/mm3 MPV (9.4-12.3) fl Neut % (Auto) Lymph % (Auto) [place] % (Auto) Eos % (Auto) Baso % (Auto) Neut # (Auto) Lymph # (Auto) [place] # (Auto) Eos # (Auto) Baso # (Auto) Neutrophils % (Manual) (40-60) % Band Neutrophils % (0-10) % Lymphocytes % (Manual) (20-40) % Atypical Lymphs % % Monocytes % (Manual) (2-10) % Eosinophils % (Manual) (0.8-7.0) % Basophils % (Manual) (0.2-1.2) Metamyelocytes % Nucleated RBCs % Manual Slide Review Toxic Granulation Platelet Estimate Plt Morphology Comment Polychromasia Poikilocytosis Basophilic Stippling Anisocytosis Macrocytosis Target Cells Ovalocytes Stomatocytes Acanthocytes (Spur) Schistocytes RBC Morph Comment Sodium (136-145) mEq/L Potassium (3.5-5.1) mEq/L Chloride (98-107) mEq/L Carbon Dioxide (21-32) mEq/L Anion Gap (5-15) BUN (7-18) mg/dL Creatinine (0.7-1.3) mg/dL Est Cr Clr Drug Dosing mL/min Estimated GFR (MDRD) (>60) mL/min BUN/Creatinine Ratio (14-18) Glucose (83-115) mg/dL Lactic Acid 5.3 H (0.4-2.0) mmol/L Calcium (8.5-10.1) mg/dL Total Bilirubin (0.2-1.0) mg/dL AST (15-37) U/L ALT (16-63) U/L Alkaline Phosphatase (46-116) U/L C-Reactive Protein (<1.0) mg/dL Total Protein (6.4-8.2) g/dl Albumin (3.4-5.0) g/dl Globulin gm/dL Albumin/Globulin Ratio (1-2) Urine Color (Yellow) Urine Appearance (Clear) Urine pH (5.0-8.0) Ur Specific [place] (1.005-1.030) Urine Protein (Negative) Urine Glucose (UA) (Negative) Urine Ketones (Negative) Urine Occult Blood (Negative) Urine Nitrite (Negative) Urine Bilirubin (Negative) Urine Urobilinogen (0.2-1.0) Ur Leukocyte Esterase (Negative) Urine RBC (0-5) /hpf Urine WBC (0-5) /hpf Ur Epithelial Cells (0-5) /hpf Ur Transition Epith Cell (0-5) Ur Renal Epithelial Cell (0-5) /hpf Amorphous Sediment (NOT SEEN) /hpf Urine Bacteria (FEW) /hpf Hyaline Casts (0-5) /lpf Urine Mucus (FEW) /hpf Meds: Medications Generic Name Dose Route Start Last Admin Trade Name Freq PRN Reason Stop Dose Admin Sodium Chloride 1,900 mls @ 1,000 mls/hr 04/23/17 07:45 04/23/17 07:55 Normal Saline IV 1,000 mls/hr .BOLUS MALA Administration Sodium Chloride 10 ml 04/23/17 07:39 04/23/17 07:50 Saline Flush FLUSH 10 ml ASDIRECTED PRN Administration Keep Vein Open Discontinued Medications Generic Name Dose Route Start Last Admin Trade Name Chikis PRN Reason Stop Dose Admin Acetaminophen 975 mg 04/23/17 07:46 04/23/17 08:10 Tylenol PO 04/23/17 07:47 Not Given NOW ONE Acetaminophen 650 mg 04/23/17 07:55 04/23/17 08:35 Tylenol RECTAL 04/23/17 07:56 650 mg NOW ONE Administration Acetaminophen Confirm 04/23/17 08:01 04/23/17 08:09 Tylenol Administered 04/23/17 08:02 Not Given Dose 650 mg .ROUTE .STK-MED ONE Levofloxacin/Dextrose 750 mg/ 150 mls @ 100 mls/hr 04/23/17 07:44 04/23/17 08 :30 Premix IV 04/23/17 09:13 100 mls/hr ONETIME ONE Administration Sodium Chloride Confirm 04/23/17 09:41 Normal Saline Administered 04/23/17 09:42 Dose 1,000 mls @ as directed .ROUTE .STK-MED ONE - Re-Assessments/Exams Free Text/Narrative Re-Assessment/Exam: 04/23/17 07:50 I ordered an IV NS 1,900ml bolus. He will get a 30ml/kg bolus which is 2, 400mls. He got a 500ml bolus from EMS on the way in. I will also get a CXR, labs, UA and influenza. 04/23/17 09:19 His WBC was elevated at 40.53. His hgb was a little low at 11.4. His glucose was elevated at 372. His lactic acid was elevated at 5.3. His CXR shows an infiltrate in the right middle lobe. I changed his tylenol from PO to rectal. He is septic from pneumonia. I feel he needs to be admitted. I called Dr Martinez and she agreed to the admission. 04/23/17 09:23 His influenza was negative. Departure - Departure Time of Disposition: 09:30 Disposition: Admitted As Inpatient 67 Condition: Serious Clinical Impression: Fever Qualifiers: Fever type: unspecified Qualified Code(s): R50.9 - Fever, unspecified Pneumonia Qualifiers: Pneumonia type: due to unspecified organism Laterality: right Lung location: middle lobe of lung Qualified Code(s): J18.1 - Lobar pneumonia, unspecified organism Sepsis Qualifiers: Sepsis type: sepsis due to unspecified organism Qualified Code(s): A41.9 - Sepsis, unspecified organism - Discharge Information Referrals: Juma Turner MD [Primary Care Provider] - Forms: ED Department Discharge - My Orders Last 24 Hours: My Active Orders 04/23/17 07:39 Cardiac Monitoring [RC] . DIRECTED Oxygen Therapy [RC] PRN Sodium Chloride 0.9% [Saline Flush] 10 ml FLUSH ASDIRECTED PRN Peripheral IV Insertion Adult [OM.PC] Stat 04/23/17 07:41 Peripheral IV Care [RC] . DIRECTED 04/23/17 07:42 Chest 1V Frontal [CR] Stat Blood Culture x2 Reflex Set [OM.PC] Stat 04/23/17 07:45 Sodium Chloride 0.9% [Normal Saline] 1,900 ml IV .BOLUS 04/23/17 08:10 CBC WITH MANUAL DIFF [HEME] Stat CULTURE BLOOD [BC] Stat 04/23/17 08:30 CULTURE BLOOD [BC] Stat - Assessment/Plan Last 24 Hours: My Active Orders 04/23/17 07:39 Cardiac Monitoring [RC] . DIRECTED Oxygen Therapy [RC] PRN Sodium Chloride 0.9% [Saline Flush] 10 ml FLUSH ASDIRECTED PRN Peripheral IV Insertion Adult [OM.PC] Stat 04/23/17 07:41 Peripheral IV Care [RC] . DIRECTED 04/23/17 07:42 Chest 1V Frontal [CR] Stat Blood Culture x2 Reflex Set [OM.PC] Stat 04/23/17 07:45 Sodium Chloride 0.9% [Normal Saline] 1,900 ml IV .BOLUS 04/23/17 08:10 CBC WITH MANUAL DIFF [HEME] Stat CULTURE BLOOD [BC] Stat 04/23/17 08:30 CULTURE BLOOD [BC] Stat
[2017-04-23] MEDS ORDERED: Acetaminophen 650 MG Supp RECTAL ONE (07:55)
[2017-04-23] MEDS ORDERED: Acetaminophen 650 MG Supp ONE (08:01)
[2017-04-23] MEDS ORDERED: Sodium Chloride 0.9% 1,000 ML ONE (09:41)
--- NOTE | 2017-04-23 10:27 | CR ---
Chest: Portable view of the chest was obtained. Comparison: Prior chest x-ray of 12/10/16. Increased density is identified within both lung bases, worse on the right side. Heart size is normal. Mild tortuosity of the thoracic aorta is seen. Atherosclerotic calcification is noted within the aortic knob. Widening of the superior mediastinum is seen which is stable. Impression: 1. Increased parenchymal densities within both lung bases, worse on the right side most likely representing pneumonia. Please correlate that patient has infectious symptoms. 2. Other incidental findings as noted above which are stable. Diagnostic code #3
--- NOTE | 2017-04-23 11:26 | PCM.HP ---
H&P History of Present Illness - General Date of Service: 04/23/17 Admit Problem/Dx: Admission Diagnosis/Problem Admission Diagnosis/Problem Sepsis Source of Information: Family, Provider History Limitations: Reports: No Limitations - History of Present Illness Initial Comments - Free Text/Narative: 86 year old male, assisted living resident presents with fever, malaise, and increasing confusion. This has occurred over several dfays. He has had a documented fever, 102F. Admits to SOB, and CP with inspiration. CXR documents bilateral infiltrates, R>L. He has a lactic acid of 5. He appears ill, and is diaphoretic. He will ne admitted to the ICU and placed in respiratory isolation. Onset of Symptoms: Reports: Unknown/Unsure Duration of Symptoms: Reports: Day(s):, Getting Worse Location: Reports: Chest, Generalized Improves with: Reports: Medication Worsens with: Reports: None Context: Reports: Sick Contact Associated Symptoms: Reports: Chest Pain, Cough, Loss of Appetite, Malaise, Nausea/Vomiting, Weakness Back Pain Score (Numeric/FACES): 5 - Related Data Allergies/Adverse Reactions: Allergies Allergy/AdvReac Type Severity Reaction Status Date / Time No Known Allergies Allergy Verified 12/08/16 13:41 Home Medications: Home Meds Albuterol Sulfate [Proair Respiclick] 2 puff INH TID 04/13/15 [History] Aspirin [Low Dose Aspirin EC] 81 mg PO DAILY 04/13/15 [History] DULoxetine [Cymbalta] 60 mg PO DAILY 04/13/15 [History] Docusate Sodium [Colace] 200 mg PO BID 04/13/15 [History] Ferrous Sulfate 324 mg PO DAILY 04/13/15 [History] glipiZIDE [Glucotrol XL] 5 mg PO ACBREAKFAST 04/13/15 [History] Propylene Glycol/Peg 400 [Systane 0.3-0.4% Eye Drops] 1 drop EYEBOTH BID [History] Tamsulosin [Flomax] 0.4 mg PO DAILY 09/08/15 [History] Acetaminophen 650 mg PO Q6H PRN 11/05/16 [History] Diltiazem [Cardizem CD] 180 mg PO DAILY 11/05/16 [History] metFORMIN [Glucophage] 250 mg PO BIDMEALS 11/05/16 [History] Apixaban [Eliquis] 5 mg PO BID 12/08/16 [History] Gabapentin [Neurontin] 300 mg PO BID 12/08/16 [History] Polyethylene Glycol 3350 [MiraLAX] 17 gm PO DAILY 12/08/16 [History] traMADol [Ultram] 100 mg PO TID 12/08/16 [History] Calcium Carbonate [Tums] 1 tab PO DAILY 12/09/16 [History] Magnesium Oxide 400 mg PO DAILY #30 tablet 12/12/16 [Rx] Metoprolol Succinate 50 mg PO DAILY #30 tab.er.24h 12/12/16 [Rx] Omeprazole 20 mg PO BIDAC #60 cap.cr 12/12/16 [Rx] Donepezil HCl [Aricept] 10 mg PO DAILY 04/23/17 [History] Furosemide [Lasix] 40 mg PO DAILY 04/23/17 [History] Menthol [Biofreeze] 1 applic TOP ASDIRECTED PRN 04/23/17 [History] Menthol [Biofreeze] 1 applic TOP TID 04/23/17 [History] Nut Tx, Lact-Reduced, Iron [Boost VHC] 4 oz PO TID 04/23/17 [History] Orajel 1 applic BUCCAL BID 04/23/17 [History] Prednisone [IJD: predniSONE] 20 mg PO DAILY 04/23/17 [History] Propylene Glycol/PEG 400/Pf [Systane 0.3-0.4% Eye Drops] 1 drop EYEBOTH BID PRN 04/23/17 [History] Sennosides [Senna] 2 tab PO DAILY 04/23/17 [History] Vitamin E 400 unit PO DAILY 04/23/17 [History] Past Medical History HEENT History: Reports: Cataract, Impaired Vision Cardiovascular History: Reports: Afib, Angina, Arrhythmia, Hypertension, [place], Other (See Below) Other Cardiovascular History: Nonrheumatic aortic valve disorder, atherosclerotic heart disease Respiratory History: Reports: Asthma, Bronchitis, Recurrent, COPD, Pneumonia, Recurrent Gastrointestinal History: Reports: GERD, Hemorrhoids Genitourinary History: Reports: BPH, Renal Calculus, Renal Disease Musculoskeletal History: Reports: Arthritis, Back Pain, Chronic, Fracture, Osteoarthritis Neurological History: Reports: CVA Psychiatric History: Reports: Depression Endocrine/Metabolic History: Reports: Diabetes, Type II Hematologic History: Reports: Anemia, Iron Deficiency Oncologic (Cancer) History: Reports: None - Infectious Disease History Infectious Disease History: Reports: Chicken Pox - Past Surgical History HEENT Surgical History: Reports: Cataract Surgery GI Surgical History: Reports: Appendectomy, Cholecystectomy, Colonoscopy Musculoskeletal Surgical History: Reports: Other (See Below) Other Musculoskeletal Surgeries/Procedures:: femur fx surgery Social & Family History - Family History Family Medical History: Noncontributory Cardiac: Reports: [place] Other Cardiac Family History: twin brother Hematologic: Reports: Anemia Oncologic: Reports: Hodgkin's Lymphoma, Leukemia, Lung - Tobacco Use Smoking Status *Q: Never Smoker Years of Tobacco use: 50 Packs/Tins Daily: 1 Used Tobacco, but Quit: Yes Month Tobacco Last Used: 1969 Second Hand Smoke Exposure: No - Caffeine Use Caffeine Use: Reports: Coffee, Soda, Other Other Caffeine Use: diet soda - Alcohol Use Days Per Week of Alcohol Use: 0 - Recreational Drug Use Recreational Drug Use: No - Living Situation & Occupation Living situation: Reports: Alone, Assisted Living H&P Review of Systems - Review of Systems: Review Of Systems: See Below General: Reports: Fever, Chills, Malaise, Weakness HEENT: Reports: No Symptoms Pulmonary: Reports: Shortness of Breath, Pleuritic Chest Pain Cardiovascular: Reports: No Symptoms Gastrointestinal: Reports: Decreased Appetite Genitourinary: Reports: No Symptoms Musculoskeletal: Reports: No Symptoms Skin: Reports: No Symptoms Psychiatric: Reports: Confusion Neurological: Reports: No Symptoms Hematologic/Lymphatic: Reports: No Symptoms Immunologic: Reports: No Symptoms Exam - Exam Exam: See Below - Vital Signs Vital Signs: Last Vital Signs Temp 36.1 C 04/23/17 10:30 Pulse 94 04/23/17 10:30 Resp 25 H 04/23/17 10:30 BP 99/49 L 04/23/17 10:30 Pulse Ox 98 04/23/17 10:30 Weight: 80.739 kg - Exam Quality Assessment: Supplemental Oxygen, DVT Prophylaxis General: Moderate Distress HEENT: Conjunctiva Clear, Nares Patent, Normal Nasal Septum, Pupils Equal, Pupils Reactive, PERRLA Neck: Trachea Midline Lungs: Decreased Breath Sounds, Rhonchi, Wheezing Cardiovascular: Regular Rate, Tachycardia GI/Abdominal Exam: Normal Bowel Sounds, Soft, Non-Tender, No Organomegaly, No Distention (Male) Exam: Deferred Rectal (Males) Exam: Deferred Back Exam: Normal Inspection Extremities: Slow Capillary Refill Skin: Moist Neurological: Cranial Nerves Intact Neuro Extensive - Mental Status: Alert Neuro Extensive - Motor, Sensory, Reflexes: CN II-XII Intact Psychiatric: Alert, Agitated - Patient Data Lab Results Last 24 hrs: Laboratory Results - last 24 hr 04/23/17 Range/Units 10:57 POC Glucose 392 H (83-110) mg/dL Result Diagrams: 04/24/17 05:28 04/24/17 05:28 *Q Meaningful Use (ADM) - VTE *Q VTE Criteria *Q: - Stroke *Q Stroke Criteria *Q: - AMI *Q AMI Criteria *Q: - Problem List (1) Fever SNOMED Code(s): 665133445 ICD Code: R50.9 - FEVER, UNSPECIFIED Status: Acute Current Visit: Yes Qualifiers: Fever type: unspecified Qualified Code(s): R50.9 - Fever, unspecified (2) Pneumonia SNOMED Code(s): 329667212 ICD Code: J18.9 - PNEUMONIA, UNSPECIFIED ORGANISM Status: Acute Current Visit: Yes Qualifiers: Pneumonia type: due to unspecified organism Laterality: right Lung location: middle lobe of lung Qualified Code(s): J18.1 - Lobar pneumonia, unspecified organism (3) Sepsis SNOMED Code(s): 14846067 ICD Code: A41.9 - SEPSIS, UNSPECIFIED ORGANISM Status: Acute Current Visit: Yes Qualifiers: Sepsis type: sepsis due to unspecified organism Qualified Code(s): A41.9 - Sepsis, unspecified organism (4) Abdominal pain SNOMED Code(s): 07364852 ICD Code: R10.9 - UNSPECIFIED ABDOMINAL PAIN Status: Acute Current Visit : No Qualifiers: Abdominal location: unspecified location Qualified Code(s): R10.9 - Unspecified abdominal pain (5) Aortic valve disorder SNOMED Code(s): 6894544 ICD Code: I35.9 - NONRHEUMATIC AORTIC VALVE DISORDER, UNSPECIFIED Status: Acute Current Visit: No (6) Atrial fibrillation SNOMED Code(s): 72251951 ICD Code: I48.91 - UNSPECIFIED ATRIAL FIBRILLATION Status: Acute Current Visit: No Qualifiers: Atrial fibrillation type: chronic Qualified Code(s): I48.2 - Chronic atrial fibrillation Problem List Initiated/Reviewed/Updated: Yes Orders Last 24hrs: Active Orders 24 hr Category Date Time Status Patient Status [ADT] Routine ADT 04/23/17 11:05 Active Medication Orders Sodium Chloride (Normal Saline) 1,900 mls @ 1,000 mls/hr IV .BOLUS [facility] Last Admin: 04/23/17 07:55 Dose: 1,000 mls/hr Sodium Chloride (Saline Flush) 10 ml FLUSH ASDIRECTED PRN PRN Reason: Keep Vein Open Last Admin: 04/23/17 07:50 Dose: 10 ml Assessment/Plan Comment:: Impression: Sepsis Acute respiratory failure Bilateral infiltrates, R>L PNA Chronic COPD/Hx of PNA Former Tobacco, 1970 HTN HLD DM ype II A fib on Eliquis History of CAD/IN CVA Depression Plan: ICU IVF per sepsis protocol IV ATB--Levoquin/Vanco Pharmacy consult re: Vanco Nebs Resp isolation Home meds Daily Labs DVT/GI prophylaxis PT/OT consult SW/CSM consult
[2017-04-23] MEDS ORDERED: Acetaminophen 325 MG Tab PO PRN (11:27)
[2017-04-23] MEDS ORDERED: Albuterol 0.083% 2.5 MG/3 ML Neb Soln NEB PRN (11:33)
[2017-04-23] MEDS: Sodium Chloride 0.9% 1,500 ML IV SCH ×2 (12:00→14:03)
[2017-04-23] MEDS ORDERED: Metoprolol Tartrate 5 MG/5 ML SDV IVPUSH PRN (12:39)
[2017-04-23] MEDS: Diltiazem IR 60 MG Tab PO SCH ×2 (12:53→20:18)
[2017-04-23] MEDS ORDERED: Albuterol/Ipratropium 3.0-0.5 MG/3 ML Neb Soln NEB SCH (13:00)
[2017-04-23] MEDS ORDERED: 50% Dextrose in Water 50 ML Syringe IVPUSH PRN (13:40)
[2017-04-23] MEDS: Insulin Aspart 100 Units/ML 3 ML Pen SUBCUT SCH ×3 (15:03→21:44)
[2017-04-23] MEDS: traMADol 50 MG Tab PO SCH ×2 (15:05→20:17)
[2017-04-23] MEDS: Albuterol/Ipratropium 3.0-0.5 MG/3 ML Neb Soln NEB SCH ×2 (15:05→20:46)
[2017-04-23] MEDS ORDERED: Vancomycin 500 MG SDV ONE (16:42)
[2017-04-23] MEDS ORDERED: Vancomycin 1 GM SDV ONE (16:42)
[2017-04-23] MEDS: metFORMIN 500 MG Tab PO SCH (16:58)
[2017-04-23] MEDS: Pantoprazole 40 MG Tab.CR PO SCH (16:59)
[2017-04-23] MEDS ORDERED: Vancomycin 1 GM, Vancomycin 500 MG in Sodium Chloride 0.9% 500 ML IV SCH (17:00)
[2017-04-23] MEDS: Sodium Chloride 0.9% 1,000 ML IV SCH (19:45)
[2017-04-23] MEDS: Apixaban 5 MG Tab PO SCH (20:17)
[2017-04-23] MEDS: Docusate Sodium 100 MG Cap PO SCH (20:18)
[2017-04-23] MEDS: Gabapentin 300 MG Cap PO SCH (20:18)
[2017-04-24] MEDS: Sodium Chloride 0.9% 1,000 ML IV SCH ×3 (02:15→17:19)
[2017-04-24] MEDS: Albuterol/Ipratropium 3.0-0.5 MG/3 ML Neb Soln NEB SCH ×4 (05:10→20:49)
[2017-04-24] MEDS: Diltiazem IR 60 MG Tab PO SCH ×3 (05:39→21:19)
[2017-04-24] MEDS: glipiZIDE 5 MG Tab.ER PO SCH (05:39)
[2017-04-24] MEDS: Pantoprazole 40 MG Tab.CR PO SCH ×2 (05:39→16:06)
[2017-04-24] MEDS: Insulin Aspart 100 Units/ML 3 ML Pen SUBCUT SCH ×4 (06:49→21:17)
[2017-04-24] MEDS ORDERED: Diltiazem 180 MG Cap.CD PO SCH (09:00)
[2017-04-24] MEDS: Tamsulosin 0.4 MG Cap.ER PO SCH (10:07)
[2017-04-24] MEDS: predniSONE 20 MG Tab PO SCH (10:07)
[2017-04-24] MEDS: DULoxetine 30 MG Cap PO SCH (10:07)
[2017-04-24] MEDS: metFORMIN 500 MG Tab PO SCH ×2 (10:07→16:06)
[2017-04-24] MEDS: Aspirin 81 MG Tab.EC PO SCH (10:07)
[2017-04-24] MEDS: Apixaban 5 MG Tab PO SCH ×2 (10:07→21:13)
[2017-04-24] MEDS: traMADol 50 MG Tab PO SCH ×3 (10:08→21:13)
[2017-04-24] MEDS: Donepezil 10 MG Tab PO SCH (10:08)
[2017-04-24] MEDS: Metoprolol Succinate 25 MG Tab.ER PO SCH (10:08)
[2017-04-24] MEDS: Docusate Sodium 100 MG Cap PO SCH ×2 (10:09→21:14)
[2017-04-24] MEDS: Sennosides 8.6 MG Tab PO SCH (10:09)
[2017-04-24] MEDS: Gabapentin 300 MG Cap PO SCH ×2 (10:09→21:15)
[2017-04-24] MEDS: Polyethylene Glycol 3350 Powder 17 GM Packet PO SCH (10:09)
[2017-04-24] MEDS: Magnesium Oxide 400 MG Tab PO SCH (10:09)
[2017-04-24] MEDS: Levofloxacin/Dextrose 5%-Water 750 MG in Premix Bag 1 BAG IV SCH (12:01)
--- NOTE | 2017-04-24 15:02 | PCM.PN ---
- General Info Date of Service: 04/24/17 Subjective Update: Feels better, less confused has more appropriate answers to simple questions. Functional Status: Reports: Tolerating Diet, Ambulating, Urinating - Review of Systems General: Reports: Weakness, Malaise HEENT: Reports: No Symptoms Pulmonary: Reports: No Symptoms Cardiovascular: Reports: No Symptoms Gastrointestinal: Reports: No Symptoms Genitourinary: Reports: No Symptoms Musculoskeletal: Reports: No Symptoms Skin: Reports: No Symptoms Neurological: Reports: No Symptoms Psychiatric: Reports: No Symptoms - Patient Data Vitals - Most Recent: Last Vital Signs Temp 36.8 C 04/24/17 12:00 Pulse 120 H 04/24/17 10:08 Resp 24 H 04/24/17 12:00 BP 122/69 04/24/17 12:00 Pulse Ox 93 L 04/24/17 12:00 Weight - Most Recent: 80.739 kg I&O - Last 24 Hours: Intake & Output 04/23/17 04/24/17 04/24/17 22:59 06:59 14:59 Intake Total 3560 1600 440 Output Total 300 Balance 3560 1600 140 Lab Results Last 24 Hours: Laboratory Results - last 24 hr 04/23/17 04/23/17 04/23/17 Range/Units 14:15 17:11 21:41 WBC (4.23-9.07) K/mm3 RBC (4.63-6.08) M/mm3 Hgb (13.7-17.5) gm/L Hct (40.1-51.0) % MCV (79.0-92.2) fl MCH (25.7-32.2) pg MCHC (32.2-35.5) g/dl RDW Std Deviation (35.1-43.9) fL Plt Count (163-337) K/mm3 MPV (9.4-12.3) fl Neut % (Auto) (34.0-67.9) % Lymph % (Auto) (21.8-53.1) % Sargent % (Auto) (5.3-12.2) % Eos % (Auto) (0.8-7.0) Baso % (Auto) (0.1-1.2) % Neut # (Auto) (1.78-5.38) K/mm3 Lymph # (Auto) (1.32-3.57) K/mm3 Sargent # (Auto) (0.30-0.82) K/mm3 Eos # (Auto) (0.04-0.54) K/mm3 Baso # (Auto) (0.01-0.08) K/mm3 Manual Slide Review Sodium (136-145) mEq/L Potassium (3.5-5.1) mEq/L Chloride (98-107) mEq/L Carbon Dioxide (21-32) mEq/L Anion Gap (5-15) BUN (7-18) mg/dL Creatinine (0.7-1.3) mg/dL Est Cr Clr Drug Dosing mL/min Estimated GFR (MDRD) (>60) mL/min BUN/Creatinine Ratio (14-18) Glucose (83-115) mg/dL POC Glucose 313 H 254 H (83-110) mg/dL Calcium (8.5-10.1) mg/dL Magnesium (1.8-2.4) mg/dl C-Reactive Protein (<1.0) mg/dL MRSA (PCR) Negative 04/24/17 04/24/17 04/24/17 Range/Units 05:28 05:28 05:28 WBC 13.72 H (4.23-9.07) K/mm3 RBC 2.40 L (4.63-6.08) M/mm3 Hgb 8.6 L (13.7-17.5) gm/L Hct 25.9 L (40.1-51.0) % MCV 107.9 H (79.0-92.2) fl MCH 35.8 H (25.7-32.2) pg MCHC 33.2 (32.2-35.5) g/dl RDW Std Deviation 85.9 H (35.1-43.9) fL Plt Count 148 L (163-337) K/mm3 MPV 10.8 (9.4-12.3) fl Neut % (Auto) 79.2 H (34.0-67.9) % Lymph % (Auto) 14.3 L (21.8-53.1) % Sargent % (Auto) 5.9 (5.3-12.2) % Eos % (Auto) 0.4 L (0.8-7.0) Baso % (Auto) 0.2 (0.1-1.2) % Neut # (Auto) 10.86 H (1.78-5.38) K/mm3 Lymph # (Auto) 1.96 (1.32-3.57) K/mm3 Sargent # (Auto) 0.81 (0.30-0.82) K/mm3 Eos # (Auto) 0.06 (0.04-0.54) K/mm3 Baso # (Auto) 0.03 (0.01-0.08) K/mm3 Manual Slide Review Abnormal smear Sodium 140 (136-145) mEq/L Potassium 3.7 (3.5-5.1) mEq/L Chloride 105 (98-107) mEq/L Carbon Dioxide 28 (21-32) mEq/L Anion Gap 10.7 (5-15) BUN 13 (7-18) mg/dL Creatinine 0.7 (0.7-1.3) mg/dL Est Cr Clr Drug Dosing 67.11 mL/min Estimated GFR (MDRD) > 60 (>60) mL/min BUN/Creatinine Ratio 18.6 H (14-18) Glucose 170 H (83-115) mg/dL POC Glucose (83-110) mg/dL Calcium 7.6 L (8.5-10.1) mg/dL Magnesium 1.5 L (1.8-2.4) mg/dl C-Reactive Protein 7.8 H* (<1.0) mg/dL MRSA (PCR) 04/24/17 04/24/17 Range/Units 06:48 12:03 WBC (4.23-9.07) K/mm3 RBC (4.63-6.08) M/mm3 Hgb (13.7-17.5) gm/L Hct (40.1-51.0) % MCV (79.0-92.2) fl MCH (25.7-32.2) pg MCHC (32.2-35.5) g/dl RDW Std Deviation (35.1-43.9) fL Plt Count (163-337) K/mm3 MPV (9.4-12.3) fl Neut % (Auto) (34.0-67.9) % Lymph % (Auto) (21.8-53.1) % Sargent % (Auto) (5.3-12.2) % Eos % (Auto) (0.8-7.0) Baso % (Auto) (0.1-1.2) % Neut # (Auto) (1.78-5.38) K/mm3 Lymph # (Auto) (1.32-3.57) K/mm3 Sargent # (Auto) (0.30-0.82) K/mm3 Eos # (Auto) (0.04-0.54) K/mm3 Baso # (Auto) (0.01-0.08) K/mm3 Manual Slide Review Sodium (136-145) mEq/L Potassium (3.5-5.1) mEq/L Chloride (98-107) mEq/L Carbon Dioxide (21-32) mEq/L Anion Gap (5-15) BUN (7-18) mg/dL Creatinine (0.7-1.3) mg/dL Est Cr Clr Drug Dosing mL/min Estimated GFR (MDRD) (>60) mL/min BUN/Creatinine Ratio (14-18) Glucose (83-115) mg/dL POC Glucose 179 H 278 H (83-110) mg/dL Calcium (8.5-10.1) mg/dL Magnesium (1.8-2.4) mg/dl C-Reactive Protein (<1.0) mg/dL MRSA (PCR) Med Orders - Current: Current Medications Acetaminophen (Tylenol) 650 mg PO Q6H PRN PRN Reason: Fever Albuterol (Proventil Neb Soln) 2.5 mg NEB Q4H PRN PRN Reason: Shortness of Breath Albuterol/Ipratropium (Duoneb 3.0-0.5 Mg/3 Ml) 3 ml NEB QIDRT [facility] Last Admin: 04/24/17 09:26 Dose: 3 ml Apixaban (Eliquis) 5 mg PO BID [facility] Last Admin: 04/24/17 10:07 Dose: 5 mg Aspirin (Halfprin) 81 mg PO DAILY [facility] Last Admin: 04/24/17 10:07 Dose: 81 mg Dextrose/Water (Dextrose 50% In Water) 50 ml IVPUSH ASDIRECTED PRN PRN Reason: Hypoglycemia Diltiazem HCl (Cardizem) 60 mg PO Q8H [facility] Last Admin: 04/24/17 12:06 Dose: 60 mg Docusate Sodium (Colace) 200 mg PO BID [facility] Last Admin: 04/24/17 10:09 Dose: 200 mg Donepezil HCl (Aricept) 10 mg PO DAILY [facility] Last Admin: 04/24/17 10:08 Dose: 10 mg Duloxetine HCl (Cymbalta) 60 mg PO DAILY [facility] Last Admin: 04/24/17 10:07 Dose: 60 mg Gabapentin (Neurontin) 300 mg PO BID [facility] Last Admin: 04/24/17 10:09 Dose: 300 mg Glipizide (Glucotrol Xl) 5 mg PO ACBREAKFAST [facility] Last Admin: 04/24/17 05:39 Dose: 5 mg Sodium Chloride (Normal Saline) 1,000 mls @ 250 mls/hr IV ASDIRECTED [facility] Last Admin: 04/24/17 10:10 Dose: 150 mls/hr Vancomycin HCl 1 gm/ Sodium (Chloride) 250 mls @ 250 mls/hr IV Q12H [facility] Last Admin: 04/24/17 10:09 Dose: 250 mls/hr Levofloxacin/Dextrose 750 mg/ (Premix) 150 mls @ 100 mls/hr IV Q24H [facility] Last Admin: 04/24/17 12:01 Dose: 100 mls/hr Insulin Aspart (Novolog) 0 unit SUBCUT QIDACANDBED [facility] PRN Reason: Protocol Last Admin: 04/24/17 12:06 Dose: 3 units Magnesium Oxide (Magnesium Oxide) 400 mg PO DAILY [facility] Last Admin: 04/24/17 10:09 Dose: 400 mg Metformin HCl (Glucophage) 250 mg PO BIDMEALS [facility] Last Admin: 04/24/17 10:07 Dose: 250 mg Metoprolol Succinate (Toprol Xl) 25 mg PO DAILY [facility] Last Admin: 04/24/17 10:08 Dose: 25 mg Metoprolol Tartrate (Lopressor) 5 mg IVPUSH Q4H PRN PRN Reason: heart rate Pantoprazole Sodium (Protonix) 40 mg PO BIDAC [facility] Last Admin: 04/24/17 05:39 Dose: 40 mg Polyethylene Glycol (Miralax) 17 gm PO DAILY [facility] Last Admin: 04/24/17 10:09 Dose: 17 gm Prednisone (Prednisone) 20 mg PO DAILY [facility] Last Admin: 04/24/17 10:07 Dose: 20 mg Senna (Senna) 17.2 mg PO DAILY [facility] Last Admin: 04/24/17 10:09 Dose: 17.2 mg Sodium Chloride (Saline Flush) 10 ml FLUSH ASDIRECTED PRN PRN Reason: Keep Vein Open Last Admin: 04/23/17 07:50 Dose: 10 ml Tamsulosin HCl (Flomax) 0.4 mg PO DAILY [facility] Last Admin: 04/24/17 10:07 Dose: 0.4 mg Tramadol HCl (Ultram) 100 mg PO TID [facility] Last Admin: 04/24/17 10:08 Dose: 100 mg Vancomycin HCl (Pharmacy To Dose - Vancomycin) 0 dose .XX ASDIRECTED [facility] Discontinued Medications Acetaminophen (Tylenol) 975 mg PO NOW ONE Stop: 04/23/17 07:47 Last Admin: 04/23/17 08:10 Dose: Not Given Acetaminophen (Tylenol) 650 mg RECTAL NOW ONE Stop: 04/23/17 07:56 Last Admin: 04/23/17 08:35 Dose: 650 mg Acetaminophen (Tylenol) Confirm Administered Dose 650 mg .ROUTE .STK-MED ONE Stop: 04/23/17 08:02 Last Admin: 04/23/17 08:09 Dose: Not Given Albuterol/Ipratropium (Duoneb 3.0-0.5 Mg/3 Ml) 3 ml NEB QID [facility] Diltiazem HCl (Cardizem Cd) 180 mg PO DAILY [facility] Levofloxacin/Dextrose 750 mg/ (Premix) 150 mls @ 100 mls/hr IV ONETIME ONE Stop: 04/23/17 09:13 Last Admin: 04/23/17 08:30 Dose: 100 mls/hr Sodium Chloride (Normal Saline) 1,900 mls @ 1,000 mls/hr IV .BOLUS [facility] Last Admin: 04/23/17 07:55 Dose: 1,000 mls/hr Sodium Chloride (Normal Saline) Confirm Administered Dose 1,000 mls @ as directed .ROUTE .STK-MED ONE Stop: 04/23/17 09:42 Last Admin: 04/23/17 10:14 Dose: Not Given Sodium Chloride (Normal Saline) 1,500 mls @ 999 mls/hr IV ASDIRECTED [facility] Stop: 04/23/17 14:00 Last Admin: 04/23/17 14:03 Dose: 999 mls/hr Vancomycin HCl 1 gm/Vancomycin HCl 500 mg/ Sodium Chloride 500 mls @ 333.333 mls/hr IV Q24H [facility] Last Admin: 04/23/17 16:56 Dose: 333.333 mls/hr Vancomycin HCl (Vancomycin) Confirm Administered Dose 500 mg .ROUTE .STK-MED ONE Stop: 04/23/17 16:43 Last Admin: 04/23/17 16:53 Dose: Not Given Vancomycin HCl (Vancomycin) Confirm Administered Dose 1 gm .ROUTE .STK-MED ONE Stop: 04/23/17 16:43 Last Admin: 04/23/17 16:53 Dose: Not Given - Exam Quality Assessment: Supplemental Oxygen, DVT Prophylaxis General: Alert, Oriented, Cooperative, No Acute Distress HEENT: Pupils Equal, Pupils Reactive, EOMI Neck: Trachea Midline, No JVD Lungs: Normal Respiratory Effort, Decreased Breath Sounds, Rhonchi Cardiovascular: Regular Rate GI/Abdominal Exam: Normal Bowel Sounds, Soft, Non-Tender, No Organomegaly, No Distention (Male) Exam: Deferred Back Exam: Normal Inspection Extremities: Normal Inspection Skin: Moist Neurological: No New Focal Deficit, Normal Speech Psy/Mental Status: Alert - Problem List & Annotations (1) Fever SNOMED Code(s): 236798874 Code(s): R50.9 - FEVER, UNSPECIFIED Status: Acute Current Visit: Yes Qualifiers: Fever type: unspecified Qualified Code(s): R50.9 - Fever, unspecified (2) Pneumonia SNOMED Code(s): 241937473 Code(s): J18.9 - PNEUMONIA, UNSPECIFIED ORGANISM Status: Acute Current Visit: Yes Qualifiers: Pneumonia type: due to unspecified organism Laterality: right Lung location: middle lobe of lung Qualified Code(s): J18.1 - Lobar pneumonia, unspecified organism (3) Sepsis SNOMED Code(s): 71759855 Code(s): A41.9 - SEPSIS, UNSPECIFIED ORGANISM Status: Acute Current Visit : Yes Qualifiers: Sepsis type: sepsis due to unspecified organism Qualified Code(s): A41.9 - Sepsis, unspecified organism (4) Abdominal pain SNOMED Code(s): 87861130 Code(s): R10.9 - UNSPECIFIED ABDOMINAL PAIN Status: Acute Current Visit: No Qualifiers: Abdominal location: unspecified location Qualified Code(s): R10.9 - Unspecified abdominal pain (5) Aortic valve disorder SNOMED Code(s): 7230338 Code(s): I35.9 - NONRHEUMATIC AORTIC VALVE DISORDER, UNSPECIFIED Status: Acute Current Visit: No (6) Atrial fibrillation SNOMED Code(s): 56711901 Code(s): I48.91 - UNSPECIFIED ATRIAL FIBRILLATION Status: Acute Current Visit: No Qualifiers: Atrial fibrillation type: chronic Qualified Code(s): I48.2 - Chronic atrial fibrillation - Problem List Review Problem List Initiated/Reviewed/Updated: Yes - My Orders Last 24 Hours: My Active Orders 04/23/17 14:15 RESPIRATORY PANEL BY PCR [MREF] Routine 04/23/17 15:00 Insulin Aspart [NovoLOG] See Protocol SUBCUT QIDACANDBED traMADol [Ultram] 100 mg PO TID 04/23/17 15:30 Vancomycin Pharmacy to Dose [Pharmacy to Dose - Vancomycin] 0 dose .XX ASDIRECTED 04/23/17 16:00 Albuterol/Ipratropium [DuoNeb 3.0-0.5 MG/3 ML] 3 ml NEB QIDRT Pantoprazole [ProTONIX] 40 mg PO BIDAC 04/23/17 17:00 metFORMIN [Glucophage] 250 mg PO BIDMEALS 04/23/17 20:18 Code Status [Resuscitation Status] Routine 04/23/17 21:00 Apixaban [Eliquis] 5 mg PO BID Docusate Sodium [Colace] 200 mg PO BID Gabapentin [Neurontin] 300 mg PO BID 04/24/17 06:00 glipiZIDE [Glucotrol XL] 5 mg PO ACBREAKFAST 04/24/17 09:00 Aspirin [Halfprin] 81 mg PO DAILY DULoxetine [Cymbalta] 60 mg PO DAILY Donepezil [Aricept] 10 mg PO DAILY Magnesium Oxide 400 mg PO DAILY Metoprolol Succinate [Toprol XL] 25 mg PO DAILY Polyethylene Glycol 3350 [MiraLAX] 17 gm PO DAILY Sennosides [Senna] 17.2 mg PO DAILY Tamsulosin [Flomax] 0.4 mg PO DAILY predniSONE 20 mg PO DAILY 04/24/17 09:30 Vancomycin [Vancocin] 1 gm Sodium Chloride 0.9% [Normal Saline] 250 ml IV Q12H 04/24/17 10:55 Activity as Tolerated [RC] .Routine 04/25/17 05:00 CBC WITH AUTO DIFF [HEME] DAILY CRP [C-REACTIVE PROTEIN] [CHEM] DAILY MAGNESIUM [CHEM] DAILY 04/25/17 05:11 BASIC METABOLIC PANEL,BMP [CHEM] DAILY 04/25/17 21:00 VANCOMYCIN TROUGH [CHEM] Timed 04/26/17 05:00 CBC WITH AUTO DIFF [HEME] DAILY CRP [C-REACTIVE PROTEIN] [CHEM] DAILY MAGNESIUM [CHEM] DAILY 04/26/17 05:11 BASIC METABOLIC PANEL,BMP [CHEM] DAILY 04/27/17 05:00 CBC WITH AUTO DIFF [HEME] DAILY CRP [C-REACTIVE PROTEIN] [CHEM] DAILY MAGNESIUM [CHEM] DAILY 04/27/17 05:11 BASIC METABOLIC PANEL,BMP [CHEM] DAILY - Plan Plan:: Impression: Sepsis Acute respiratory failure Bilateral infiltrates, R>L PNA Chronic COPD/Hx of PNA Former Tobacco, 1970 HTN HLD DM ype II A fib on Eliquis History of CAD/NE CVA Depression Plan: ICU IVF per sepsis protocol IV ATB--Levoquin/Vanco, day 2 Pharmacy consult re: Vanco Nebs Resp isolation Home meds Daily Labs DVT/GI prophylaxis PT/OT consult SW/CSM consult
[2017-04-25] MEDS: Sodium Chloride 0.9% 1,000 ML IV SCH (03:26)
[2017-04-25] MEDS: Albuterol/Ipratropium 3.0-0.5 MG/3 ML Neb Soln NEB SCH ×4 (05:51→21:46)
[2017-04-25] MEDS: Diltiazem IR 60 MG Tab PO SCH ×3 (05:59→21:16)
[2017-04-25] MEDS: Pantoprazole 40 MG Tab.CR PO SCH ×2 (06:16→16:48)
[2017-04-25] MEDS: glipiZIDE 5 MG Tab.ER PO SCH (06:16)
[2017-04-25] MEDS: metFORMIN 500 MG Tab PO SCH (06:17)
[2017-04-25] MEDS ORDERED: Levalbuterol HCl 1.25 MG/3 ML Neb NEB PRN (07:38)
[2017-04-25] MEDS ORDERED: Furosemide 40 MG/4 ML VIAL IVPUSH ONE (07:41)
[2017-04-25] MEDS ORDERED: Acetaminophen 325 MG Tab PO ONE (07:42)
[2017-04-25] MEDS ORDERED: methylPREDNISolone Sodium Succinate 125 MG/2 ML SDV IV ONE (07:42)
[2017-04-25] MEDS ORDERED: Magnesium Sulfate/Water 2 GM in Premix Bag 1 BAG IV ONE (07:47)
[2017-04-25] MEDS ORDERED: Norepinephrine 4 MG in Dextrose 5% in Water 246 ML IV SCH ×2 (08:00)
[2017-04-25] MEDS ORDERED: Diltiazem 25 MG/5 ML SDV IVPUSH ONE (08:04)
--- NOTE | 2017-04-25 08:10 | PCM.PN ---
- General Info Date of Service: 04/25/17 Admission Dx/Problem (Free Text): Admission Diagnosis/Problem Admission Diagnosis/Problem Sepsis "Brian" is seen this morning, he is resting but easily arousable. He is talkative but "very tired". Denies c/o CP, SOB, or pain initially however further questioning and exam reveals he does feel mild SOB with rest, has sensation of pain with deep inspiration and has mild diffuse abd pain with minimal palpation of his abdomen. He feels slight dizziness at rest. Review morning labs with him, hgb drop and need for further investigation, he is in agreement to transfusion. Also placement of cheema catheter this morning with status changes- unstable VS of hypotension and tachycardia thus far. Functional Status: Reports: Urinating, New Symptoms (tachycardia; hypotensive-- was hypotensive on admission--hgb drop today) - Review of Systems General: Reports: Weakness, Fatigue HEENT: Reports: Headaches Pulmonary: Reports: Shortness of Breath (mild at rest). Denies: Cough Cardiovascular: Reports: Edema. Denies: Chest Pain, Palpitations Gastrointestinal: Reports: Abdominal Pain (with palpation this morning) Genitourinary: Reports: No Symptoms Neurological: Reports: No Symptoms - Patient Data Vitals - Most Recent: Last Vital Signs Temp 97.7 F 04/25/17 04:00 Pulse 108 H 04/25/17 04:00 Resp 20 04/25/17 04:00 BP 95/70 04/25/17 04:00 Pulse Ox 94 L 04/25/17 05:52 Weight - Most Recent: 190 lb I&O - Last 24 Hours: Intake & Output 04/24/17 04/25/17 04/25/17 22:59 06:59 14:59 Intake Total 780 1558 Balance 780 1558 Lab Results Last 24 Hours: Laboratory Results - last 24 hr 04/24/17 04/24/17 04/24/17 Range/Units 12:03 15:35 21:12 WBC (4.23-9.07) K/mm3 RBC (4.63-6.08) M/mm3 Hgb (13.7-17.5) gm/L Hct (40.1-51.0) % MCV (79.0-92.2) fl MCH (25.7-32.2) pg MCHC (32.2-35.5) g/dl RDW Std Deviation (35.1-43.9) fL Plt Count (163-337) K/mm3 MPV (9.4-12.3) fl Neut % (Auto) (34.0-67.9) % Lymph % (Auto) (21.8-53.1) % Kerr % (Auto) (5.3-12.2) % Eos % (Auto) (0.8-7.0) Baso % (Auto) (0.1-1.2) % Neut # (Auto) (1.78-5.38) K/mm3 Lymph # (Auto) (1.32-3.57) K/mm3 Kerr # (Auto) (0.30-0.82) K/mm3 Eos # (Auto) (0.04-0.54) K/mm3 Baso # (Auto) (0.01-0.08) K/mm3 Manual Slide Review Sodium (136-145) mEq/L Potassium (3.5-5.1) mEq/L Chloride (98-107) mEq/L Carbon Dioxide (21-32) mEq/L Anion Gap (5-15) BUN (7-18) mg/dL Creatinine (0.7-1.3) mg/dL Est Cr Clr Drug Dosing mL/min Estimated GFR (MDRD) (>60) mL/min BUN/Creatinine Ratio (14-18) Glucose (83-115) mg/dL POC Glucose 278 H 267 H 347 H (83-110) mg/dL Calcium (8.5-10.1) mg/dL Magnesium (1.8-2.4) mg/dl C-Reactive Protein (<1.0) mg/dL 04/25/17 04/25/17 04/25/17 Range/Units 05:15 05:15 05:15 WBC 6.47 (4.23-9.07) K/mm3 RBC 2.16 L (4.63-6.08) M/mm3 Hgb 7.5 L (13.7-17.5) gm/L Hct 23.5 L (40.1-51.0) % MCV 108.8 H (79.0-92.2) fl MCH 34.7 H (25.7-32.2) pg MCHC 31.9 L (32.2-35.5) g/dl RDW Std Deviation 85.5 H (35.1-43.9) fL Plt Count 124 L (163-337) K/mm3 MPV 10.7 (9.4-12.3) fl Neut % (Auto) 72.7 H (34.0-67.9) % Lymph % (Auto) 18.2 L (21.8-53.1) % Kerr % (Auto) 7.9 (5.3-12.2) % Eos % (Auto) 0.6 L (0.8-7.0) Baso % (Auto) 0.0 L (0.1-1.2) % Neut # (Auto) 4.70 (1.78-5.38) K/mm3 Lymph # (Auto) 1.18 L (1.32-3.57) K/mm3 Kerr # (Auto) 0.51 (0.30-0.82) K/mm3 Eos # (Auto) 0.04 (0.04-0.54) K/mm3 Baso # (Auto) 0.00 L (0.01-0.08) K/mm3 Manual Slide Review Abnormal smear Sodium 140 (136-145) mEq/L Potassium 4.1 (3.5-5.1) mEq/L Chloride 107 (98-107) mEq/L Carbon Dioxide 28 (21-32) mEq/L Anion Gap 9.1 (5-15) BUN 9 (7-18) mg/dL Creatinine 0.7 (0.7-1.3) mg/dL Est Cr Clr Drug Dosing 67.11 mL/min Estimated GFR (MDRD) > 60 (>60) mL/min BUN/Creatinine Ratio 12.9 L (14-18) Glucose 212 H (83-115) mg/dL POC Glucose (83-110) mg/dL Calcium 7.6 L (8.5-10.1) mg/dL Magnesium 1.6 L (1.8-2.4) mg/dl C-Reactive Protein 6.7 H* (<1.0) mg/dL 04/25/17 Range/Units 06:16 WBC (4.23-9.07) K/mm3 RBC (4.63-6.08) M/mm3 Hgb (13.7-17.5) gm/L Hct (40.1-51.0) % MCV (79.0-92.2) fl MCH (25.7-32.2) pg MCHC (32.2-35.5) g/dl RDW Std Deviation (35.1-43.9) fL Plt Count (163-337) K/mm3 MPV (9.4-12.3) fl Neut % (Auto) (34.0-67.9) % Lymph % (Auto) (21.8-53.1) % Kerr % (Auto) (5.3-12.2) % Eos % (Auto) (0.8-7.0) Baso % (Auto) (0.1-1.2) % Neut # (Auto) (1.78-5.38) K/mm3 Lymph # (Auto) (1.32-3.57) K/mm3 Kerr # (Auto) (0.30-0.82) K/mm3 Eos # (Auto) (0.04-0.54) K/mm3 Baso # (Auto) (0.01-0.08) K/mm3 Manual Slide Review Sodium (136-145) mEq/L Potassium (3.5-5.1) mEq/L Chloride (98-107) mEq/L Carbon Dioxide (21-32) mEq/L Anion Gap (5-15) BUN (7-18) mg/dL Creatinine (0.7-1.3) mg/dL Est Cr Clr Drug Dosing mL/min Estimated GFR (MDRD) (>60) mL/min BUN/Creatinine Ratio (14-18) Glucose (83-115) mg/dL POC Glucose 222 H (83-110) mg/dL Calcium (8.5-10.1) mg/dL Magnesium (1.8-2.4) mg/dl C-Reactive Protein (<1.0) mg/dL Med Orders - Current: Current Medications Acetaminophen (Tylenol) 650 mg PO Q6H PRN PRN Reason: Fever Albuterol/Ipratropium (Duoneb 3.0-0.5 Mg/3 Ml) 3 ml NEB QIDRT [facility] Last Admin: 04/25/17 05:51 Dose: 3 ml Apixaban (Eliquis) 5 mg PO BID [facility] Last Admin: 04/24/17 21:13 Dose: 5 mg Aspirin (Halfprin) 81 mg PO DAILY [facility] Last Admin: 04/24/17 10:07 Dose: 81 mg Dextrose/Water (Dextrose 50% In Water) 50 ml IVPUSH ASDIRECTED PRN PRN Reason: Hypoglycemia Diltiazem HCl (Cardizem) 60 mg PO Q8H [facility] Last Admin: 04/25/17 05:59 Dose: Not Given Diltiazem HCl (Diltiazem) 10 mg IVPUSH ONETIME ONE Stop: 04/25/17 08:05 Docusate Sodium (Colace) 200 mg PO BID [facility] Last Admin: 04/24/17 21:14 Dose: 200 mg Donepezil HCl (Aricept) 10 mg PO DAILY [facility] Last Admin: 04/24/17 10:08 Dose: 10 mg Duloxetine HCl (Cymbalta) 60 mg PO DAILY [facility] Last Admin: 04/24/17 10:07 Dose: 60 mg Gabapentin (Neurontin) 300 mg PO BID [facility] Last Admin: 04/24/17 21:15 Dose: 300 mg Glipizide (Glucotrol Xl) 5 mg PO ACBREAKFAST [facility] Last Admin: 04/25/17 06:16 Dose: 5 mg Vancomycin HCl 1 gm/ Sodium (Chloride) 250 mls @ 250 mls/hr IV Q12H [facility] Last Admin: 04/24/17 21:16 Dose: 250 mls/hr Levofloxacin/Dextrose 750 mg/ (Premix) 150 mls @ 100 mls/hr IV Q24H [facility] Last Admin: 04/24/17 12:01 Dose: 100 mls/hr Magnesium Sulfate 2 gm/ Premix 50 mls @ 25 mls/hr IV ONETIME ONE Stop: 04/25/17 09:46 Norepinephrine Bitartrate 4 mg (/ Dextrose/Water) 250 mls @ 7.5 mls/hr IV TITRATE MALA; 2 MCG/MIN PRN Reason: Protocol Insulin Aspart (Novolog) 0 unit SUBCUT QIDACANDBED [facility] PRN Reason: Protocol Last Admin: 04/24/17 21:17 Dose: 4 units Levalbuterol HCl (Xopenex) 1.25 mg NEB Q2H PRN PRN Reason: sob/wheezing Magnesium Oxide (Magnesium Oxide) 400 mg PO DAILY [facility] Last Admin: 04/24/17 10:09 Dose: 400 mg Metformin HCl (Glucophage) 250 mg PO BIDMEALS [facility] Last Admin: 04/25/17 06:17 Dose: 250 mg Metoprolol Succinate (Toprol Xl) 25 mg PO DAILY [facility] Last Admin: 04/24/17 10:08 Dose: 25 mg Metoprolol Tartrate (Lopressor) 5 mg IVPUSH Q4H PRN PRN Reason: heart rate Pantoprazole Sodium (Protonix) 40 mg PO BIDAC [facility] Last Admin: 04/25/17 06:16 Dose: 40 mg Polyethylene Glycol (Miralax) 17 gm PO DAILY [facility] Last Admin: 04/24/17 10:09 Dose: 17 gm Prednisone (Prednisone) 20 mg PO DAILY [facility] Last Admin: 04/24/17 10:07 Dose: 20 mg Senna (Senna) 17.2 mg PO DAILY [facility] Last Admin: 04/24/17 10:09 Dose: 17.2 mg Sodium Chloride (Saline Flush) 10 ml FLUSH ASDIRECTED PRN PRN Reason: Keep Vein Open Last Admin: 04/23/17 07:50 Dose: 10 ml Tamsulosin HCl (Flomax) 0.4 mg PO DAILY [facility] Last Admin: 04/24/17 10:07 Dose: 0.4 mg Tramadol HCl (Ultram) 100 mg PO TID [facility] Last Admin: 04/24/17 21:13 Dose: 100 mg Vancomycin HCl (Pharmacy To Dose - Vancomycin) 0 dose .XX ASDIRECTED [facility] Discontinued Medications Acetaminophen (Tylenol) 975 mg PO NOW ONE Stop: 04/23/17 07:47 Last Admin: 04/23/17 08:10 Dose: Not Given Acetaminophen (Tylenol) 650 mg RECTAL NOW ONE Stop: 04/23/17 07:56 Last Admin: 04/23/17 08:35 Dose: 650 mg Acetaminophen (Tylenol) Confirm Administered Dose 650 mg .ROUTE .STK-MED ONE Stop: 04/23/17 08:02 Last Admin: 04/23/17 08:09 Dose: Not Given Acetaminophen (Tylenol) 650 mg PO NOW ONE Stop: 04/25/17 07:43 Albuterol (Proventil Neb Soln) 2.5 mg NEB Q4H PRN PRN Reason: Shortness of Breath Albuterol/Ipratropium (Duoneb 3.0-0.5 Mg/3 Ml) 3 ml NEB QID MALA Diltiazem HCl (Cardizem Cd) 180 mg PO DAILY [facility] Furosemide (Lasix) 40 mg IVPUSH NOW ONE Stop: 04/25/17 07:42 Levofloxacin/Dextrose 750 mg/ (Premix) 150 mls @ 100 mls/hr IV ONETIME ONE Stop: 04/23/17 09:13 Last Admin: 04/23/17 08:30 Dose: 100 mls/hr Sodium Chloride (Normal Saline) 1,900 mls @ 1,000 mls/hr IV .BOLUS MALA Last Admin: 04/23/17 07:55 Dose: 1,000 mls/hr Sodium Chloride (Normal Saline) Confirm Administered Dose 1,000 mls @ as directed .ROUTE .[facility] ONE Stop: 04/23/17 09:42 Last Admin: 04/23/17 10:14 Dose: Not Given Sodium Chloride (Normal Saline) 1,500 mls @ 999 mls/hr IV ASDIRECTED [facility] Stop: 04/23/17 14:00 Last Admin: 04/23/17 14:03 Dose: 999 mls/hr Sodium Chloride (Normal Saline) 1,000 mls @ 100 mls/hr IV ASDIRECTED [facility] Last Admin: 04/25/17 03:26 Dose: 100 mls/hr Vancomycin HCl 1 gm/Vancomycin HCl 500 mg/ Sodium Chloride 500 mls @ 333.333 mls/hr IV Q24H [facility] Last Admin: 04/23/17 16:56 Dose: 333.333 mls/hr Methylprednisolone Sodium Succinate (Solu-Medrol) 80 mg IV ONETIME ONE Stop: 04/25/17 07:43 Vancomycin HCl (Vancomycin) Confirm Administered Dose 500 mg .ROUTE .[facility]-MED ONE Stop: 04/23/17 16:43 Last Admin: 04/23/17 16:53 Dose: Not Given Vancomycin HCl (Vancomycin) Confirm Administered Dose 1 gm .ROUTE .[facility]-MED ONE Stop: 04/23/17 16:43 Last Admin: 04/23/17 16:53 Dose: Not Given - Exam Quality Assessment: Supplemental Oxygen, DVT Prophylaxis General: Alert, Oriented, Cooperative, No Acute Distress HEENT: Pupils Equal, EOMI, Mucous Membr. Moist/[place] Neck: Supple Lungs: Normal Respiratory Effort, Decreased Breath Sounds (mid to lower lobes), Crackles (fine ) Cardiovascular: Irregular Rhythm, Tachycardia GI/Abdominal Exam: Distended (firm), Tender (mild tenderness diffusely with palp this morning), Abnormal Bowel Sounds (hypoactive). No: Guarding, Rigid, Rebound (Male) Exam: Deferred Extremities: Other (diffuse pitting edema to upper extremities, LE with Teds present, minimal swelling where tiffanie hose are, upper legs are with trace edema) Peripheral Pulses: 1+: Radial (L), Radial (R), Dorsalis Pedis (L), Dorsalis Pedis (R) Neurological: No New Focal Deficit (fatigued, but responds appropriately to all questions asked this morning) Psy/Mental Status: Alert - Problem List & Annotations (1) Sepsis SNOMED Code(s): 73128043 Code(s): A41.9 - SEPSIS, UNSPECIFIED ORGANISM Status: Acute Priority: High Current Visit: Yes Qualifiers: Sepsis type: sepsis due to unspecified organism Qualified Code(s): A41.9 - Sepsis, unspecified organism (2) Hypotension SNOMED Code(s): 92237623 Code(s): I95.9 - HYPOTENSION, UNSPECIFIED Status: Acute Priority: High Current Visit: Yes (3) Tachycardia SNOMED Code(s): 5536678 Code(s): R00.0 - TACHYCARDIA, UNSPECIFIED Status: Acute Current Visit: No (4) Pneumonia SNOMED Code(s): 221319363 Code(s): J18.9 - PNEUMONIA, UNSPECIFIED ORGANISM Status: Acute Priority: High Current Visit: Yes Qualifiers: Pneumonia type: due to unspecified organism Laterality: right Lung location: middle lobe of lung Qualified Code(s): J18.1 - Lobar pneumonia, unspecified organism (5) Anemia SNOMED Code(s): 870286114 Code(s): D64.9 - ANEMIA, UNSPECIFIED Status: Acute Priority: High Current Visit: Yes Qualifiers: Anemia type: unspecified type Qualified Code(s): D64.9 - Anemia, unspecified (6) Abdominal pain SNOMED Code(s): 90444410 Code(s): R10.9 - UNSPECIFIED ABDOMINAL PAIN Status: Acute Priority: High Current Visit: Yes Qualifiers: Abdominal location: generalized Qualified Code(s): R10.84 - Generalized abdominal pain (7) Atrial fibrillation SNOMED Code(s): 60035378 Code(s): I48.91 - UNSPECIFIED ATRIAL FIBRILLATION Status: Chronic Priority: Medium Current Visit: Yes Qualifiers: Atrial fibrillation type: chronic Qualified Code(s): I48.2 - Chronic atrial fibrillation (8) CAD (coronary artery disease) SNOMED Code(s): 37600247 Code(s): I25.10 - ATHSCL HEART DISEASE OF [place] CORONARY ARTERY W/O ANG PCTRS Status: Chronic Priority: Medium Current Visit: Yes Qualifiers: Coronary Disease-Associated Artery/Lesion type: unspecified vessel or lesion type [place] vs. transplanted heart: [place] heart - Problem List Review Problem List Initiated/Reviewed/Updated: Yes - My Orders Last 24 Hours: My Active Orders 04/25/17 07:36 FE, TIBC, TRANSFERRIN, FE SAT [CHEM] Routine LACTIC ACID [CHEM] Routine PRO B-TYPE NATRIUR PEPT,BNPPRO [CHEM] Routine TROPONIN I [CHEM] Routine 04/25/17 07:38 OCCULT BLOOD SCREEN [OP] Routine Levalbuterol HCl [Xopenex] 1.25 mg NEB Q2H PRN 04/25/17 07:39 RT Aerosol Therapy [RC] ASDIRECTED 04/25/17 07:40 IS (RT) [RT Incentive Spirometry] [RC] Q2HWA GLYCOSYLATED HEMOGLOBIN,HGBA1C [CHEM] Routine TSH [CHEM] Routine RT Acapella [RESPCARE] Routine 04/25/17 07:42 INR,PT,PROTHROMBIN TIME [COAG] Urgent PTT,PARTIAL THROMBOPLSTIN TIME [COAG] Urgent RED BLOOD CELLS LP [BBK] Urgent TYPE AND SCREEN [BBK] Urgent Transfuse Red Blood Cells [COMM] Urgent Transfuse Red Blood Cells [COMM] Urgent 04/25/17 07:47 Magnesium Sulfate/Water [Magnesium Sulfate 2 GM in Water 50 ML] 2 gm Premix Bag 1 bag IV ONETIME 04/25/17 07:52 EKG Documentation Completion [RC] STAT 04/25/17 07:56 Urinary Catheter Assessment [RC] ASDIRECTED 04/25/17 07:58 Abdomen Pelvis w Cont [CT] Routine 04/25/17 08:00 Cheema Catheter Insertion [Insert Urinary Catheter] [OM.PC] Q24H Norepinephrine 4 MG in D5W @ 2 MCG/MIN(250ml) Norepinephrine [Levophed] 4 mg Dextrose 5% in Water 246 ml IV TITRATE 04/25/17 08:04 Echo Comp wo Cont [US] Routine Diltiazem 10 mg IVPUSH ONETIME ONE 04/25/17 14:00 HEMOGLOBIN/HEMATOCRIT,HH [HEME] Routine 04/25/17 Lunch Clear Liquid Diet [DIET] - Plan Plan:: Impression: Sepsis--Hypotension, tachycardia, febrile on admission LA elevated--5.9-->2.9; Recheck LA this morning Caution with fluid due to presumed acute heart failure exacerbation clinically -May need levophed drip --PRN orders placed for map <65 Treat infection as below R/O cardiac etiology in addition to infection; Troponin, EKG and BNP this morning Switch albuterol to xopenex Nebs for tachycardia reason Acute respiratory failure Supplemental oxygen to keep saturations >90% RT/Nebs/IS/FV Tx PNA as below Bilateral infiltrates, R>L PNA Vancomycin and Levaquin IV Follow daily labs Repeat CXR today Presumed acute CHF exacerbation--clinically Awaiting labs as above Last echo 12/11/16--EF of 55-65%, mild AV stenosis, mild biatrial dilation, mildto moderate MVR, mild to mod elevated RV pressure at 47.9- report reviewed Lasix 40mg IVP now-- watch b/p, start levophed per parameters Renal function WNL today with creat of 0.9, cont close monitoring Hold gabapentin as this can cause edema Hypomagnesemia-- with 17beat run of V-tach early this morning 2gm IV mag today cont oral mag as scheduled Follow with daily labs Anemia- etiology uncertain, likely some component of acute on chronic and partly dilutional but need to investigate further 11.4-->8.6--7.5 Iron studies, occult stool, B12, folate today Transfuse 2 units PRBC today; recheck labs at 1400 A fib on Eliquis--rates 100-120's this morning -PO cardizem held last night due to hypotension -HR's cont to climb this morning-- IV cardizem 10mg push now, monitor b/p, start levophed if needed -EKG this am Chronic COPD/Hx of PNA Former Tobacco, 1970 HTN--now with hypotension HLD- check lipid panel, cont statin DM ype II--A1C today, hold metformin due to sepsis 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 Turner with [facility] in [place]
[2017-04-25] MEDS: Insulin Aspart 100 Units/ML 3 ML Pen SUBCUT SCH ×4 (08:50→21:18)
[2017-04-25] MEDS: Docusate Sodium 100 MG Cap PO SCH ×2 (08:51→21:16)
[2017-04-25] MEDS: DULoxetine 30 MG Cap PO SCH (08:52)
[2017-04-25] MEDS: Metoprolol Succinate 25 MG Tab.ER PO SCH (08:53)
[2017-04-25] MEDS ORDERED: Sodium Chloride 0.9% 10 ML Syringe FLUSH PRN (08:54)
[2017-04-25] MEDS: Magnesium Oxide 400 MG Tab PO SCH (08:54)
[2017-04-25] MEDS ORDERED: Iopamidol 612 MG/ML 100 ML Bottle IVPUSH ONE (08:54)
[2017-04-25] MEDS: Tamsulosin 0.4 MG Cap.ER PO SCH (08:54)
[2017-04-25] MEDS: Sennosides 8.6 MG Tab PO SCH (08:55)
[2017-04-25] MEDS: Donepezil 10 MG Tab PO SCH (08:55)
[2017-04-25] MEDS: Aspirin 81 MG Tab.EC PO SCH (08:56)
[2017-04-25] MEDS: traMADol 50 MG Tab PO SCH ×3 (08:56→21:17)
[2017-04-25] MEDS: Apixaban 5 MG Tab PO SCH ×2 (08:58→21:17)
[2017-04-25] MEDS: Polyethylene Glycol 3350 Powder 17 GM Packet PO SCH (10:20)
[2017-04-25] MEDS: predniSONE 20 MG Tab PO SCH (10:21)
[2017-04-25] MEDS ORDERED: Ondansetron 4 MG/2 ML SDV ONE (10:32)
[2017-04-25] MEDS ORDERED: Ondansetron 4 MG/2 ML SDV IVPUSH PRN (10:43)
[2017-04-25] MEDS ORDERED: Diltiazem 25 MG/5 ML SDV IVPUSH PRN (10:44)
--- NOTE | 2017-04-25 10:48 | PCM.SN ---
- Free Text/Narrative Note: Patient took 1/2 of clear liquid tray this morning Returned from CT/Xray and had large emesis. Mild epigastric pain is noted post emesis- HR up to 170's during emesis. IV zofran orders placed for now and PRN. Patient to have repeat labs at 1400 today
--- NOTE | 2017-04-25 10:54 | CR ---
Chest: Two views of the chest were obtained. Comparison: Prior chest x-ray of 04/23/17. Right lower lobe increased density is seen. Findings are slightly improved from previous exam. Heart size and mediastinum are normal. Bony structures are unremarkable. Impression: 1. Right lower lobe density presumably due to pneumonia. Findings are slightly improved from previous exam. Diagnostic code #3
--- NOTE | 2017-04-25 10:54 | CT ---
CT abdomen and pelvis Technique: Multiple axial sections were obtained from above the dome of the diaphragm inferiorly through the pubic symphysis. Intravenous contrast was utilized. No oral contrast has been given which diminishes bowel evaluation. Comparison: Small bilateral pleural effusions are seen. Increased density seen within both lung bases either due to atelectasis or pneumonia. Liver shows no focal parenchymal abnormality. Spleen appears within normal limits. Adrenal glands show no nodule. Pancreas is within normal limits. Surgical clips are seen from prior cholecystectomy. Atrophy is noted of a portion of the upper left kidney. Cyst is identified more inferiorly within the left kidney measuring 1.9 cm. Kidneys are otherwise unremarkable. Aorta and iliac vessels shows atherosclerotic change. Proximal celiac and SMA arteries appear to be patent. Inferior mesenteric artery is also patent proximally. Plaque identified at the origin of the left renal artery. Right renal artery appears patent proximally. No abdominal aortic aneurysm is seen. No retroperitoneal adenopathy is seen. Diverticuli are seen within the descending and sigmoid colons without diverticulitis. Orthopedic hardware affixing old fracture seen within the right hip causing artifact. Diffuse degenerative change is seen within the spine. Surgical clips are seen within the right lower abdomen presumably from prior appendectomy. Impression: 1. Small bilateral pleural effusions. Increased density within both lung bases compatible with atelectasis or pneumonia. 2. Atrophy within a portion of the upper left kidney with small left lower renal cyst. 3. Other incidental findings as noted above. Diagnostic code #3
[2017-04-25] MEDS: Levofloxacin/Dextrose 5%-Water 750 MG in Premix Bag 1 BAG IV SCH (11:31)
[2017-04-25] MEDS ORDERED: Sodium Chloride 0.9% 1,000 ML IV SCH ×2 (11:45→17:45)
[2017-04-25] MEDS: Metoprolol Tartrate 50 MG Tab PO SCH ×2 (14:33→20:29)
[2017-04-25] MEDS ORDERED: methylPREDNISolone Sod Succ 125 MG in Sodium Chloride 0.9% 250 ML IV SCH (16:00)
[2017-04-25] MEDS: methylPREDNISolone Sodium Succinate 125 MG/2 ML SDV IVPUSH SCH ×2 (16:50→21:19)
[2017-04-25] MEDS ORDERED: Piperacillin/Tazobactam 4.5 GM in Sodium Chloride 0.9% 100 ML IV ONE (17:00)
[2017-04-26] MEDS: Piperacillin/Tazobactam 4.5 GM in Sodium Chloride 0.9% 100 ML IV SCH ×3 (01:32→16:29)
[2017-04-26] MEDS: methylPREDNISolone Sodium Succinate 125 MG/2 ML SDV IVPUSH SCH ×4 (05:00→22:46)
[2017-04-26] MEDS: Diltiazem IR 60 MG Tab PO SCH ×3 (05:39→20:26)
[2017-04-26] MEDS: Pantoprazole 40 MG Tab.CR PO SCH ×2 (05:39→16:22)
[2017-04-26] MEDS: glipiZIDE 5 MG Tab.ER PO SCH (05:40)
[2017-04-26] MEDS: Albuterol/Ipratropium 3.0-0.5 MG/3 ML Neb Soln NEB SCH ×4 (05:52→20:35)
[2017-04-26] MEDS: Insulin Aspart 100 Units/ML 3 ML Pen SUBCUT SCH ×4 (08:30→22:46)
[2017-04-26] MEDS: Polyethylene Glycol 3350 Powder 17 GM Packet PO SCH (08:31)
[2017-04-26] MEDS: traMADol 50 MG Tab PO SCH ×3 (08:32→20:26)
[2017-04-26] MEDS: Iron Polysaccharides Complex 150 MG Cap PO SCH (08:32)
[2017-04-26] MEDS: Docusate Sodium 100 MG Cap PO SCH ×2 (08:32→20:27)
[2017-04-26] MEDS: DULoxetine 30 MG Cap PO SCH (08:32)
[2017-04-26] MEDS: Tamsulosin 0.4 MG Cap.ER PO SCH (08:32)
[2017-04-26] MEDS: Sennosides 8.6 MG Tab PO SCH (08:33)
[2017-04-26] MEDS: Magnesium Oxide 400 MG Tab PO SCH (08:34)
[2017-04-26] MEDS: Donepezil 10 MG Tab PO SCH (08:34)
[2017-04-26] MEDS: Apixaban 5 MG Tab PO SCH ×2 (08:34→20:27)
[2017-04-26] MEDS: Metoprolol Tartrate 50 MG Tab PO SCH ×2 (08:35→20:27)
[2017-04-26] MEDS: Aspirin 81 MG Tab.EC PO SCH (08:35)
[2017-04-26] MEDS ORDERED: Vancomycin 1 GM, Vancomycin 250 MG in Sodium Chloride 0.9% 250 ML IV SCH (09:30)
[2017-04-26] MEDS: predniSONE 20 MG Tab PO SCH (10:29)
[2017-04-26] MEDS: Levofloxacin/Dextrose 5%-Water 750 MG in Premix Bag 1 BAG IV SCH (11:09)
[2017-04-26] MEDS ORDERED: Magnesium Oxide 400 MG Tab PO ONE (13:01)
--- NOTE | 2017-04-26 13:08 | PCM.PN ---
<Sneha Gonzales M - Last Filed: 04/26/17 13:01> - General Info Date of Service: 04/26/17 Admission Dx/Problem (Free Text): Admission Diagnosis/Problem Admission Diagnosis/Problem Sepsis "Brian" is seen this morning, he is resting comfortably in chair. Color is better today, he states feels "much better" today. VS have stabilized, b/p and HR improved. He is coughing but still weak. Denies SOB, CP, palpatition symptoms or dizziness today. Overall significant improvement from yesterday. Functional Status: Reports: Pain Controlled, Tolerating Diet, Ambulating, Urinating, Incentive Spirometry. Denies: New Symptoms - Review of Systems General: Reports: Weakness, Fatigue HEENT: Reports: No Symptoms. Denies: Visual Changes Pulmonary: Reports: Cough. Denies: Sputum Cardiovascular: Reports: No Symptoms. Denies: Chest Pain, Palpitations Gastrointestinal: Denies: Diarrhea, Nausea, Vomiting Genitourinary: Reports: No Symptoms, Other (cheema cath draining clear yellow urine) Neurological: Reports: No Symptoms Psychiatric: Reports: No Symptoms - Patient Data Vitals - Most Recent: Last Vital Signs Temp 97.9 F 04/26/17 12:00 Pulse 83 04/26/17 12:00 Resp 23 H 04/26/17 12:00 BP 99/78 04/26/17 12:00 Pulse Ox 95 04/26/17 12:00 Weight - Most Recent: 87.203 kg I&O - Last 24 Hours: Intake & Output 04/25/17 04/26/17 04/26/17 22:59 06:59 14:59 Intake Total 5 940 360 Output Total 935 435 375 Balance 1090 505 -15 Lab Results Last 24 Hours: Laboratory Results - last 24 hr 04/25/17 04/25/17 04/25/17 Range/Units 05:37 17:15 17:55 WBC (4.23-9.07) K/mm3 RBC (4.63-6.08) M/mm3 Hgb 10.6 L (13.7-17.5) gm/L Hct 32.3 L (40.1-51.0) % MCV (79.0-92.2) fl MCH (25.7-32.2) pg MCHC (32.2-35.5) g/dl RDW Std Deviation (35.1-43.9) fL Plt Count (163-337) K/mm3 MPV (9.4-12.3) fl Neut % (Auto) (34.0-67.9) % Lymph % (Auto) (21.8-53.1) % [place] % (Auto) (5.3-12.2) % Eos % (Auto) (0.8-7.0) Baso % (Auto) (0.1-1.2) % Neut # (Auto) (1.78-5.38) K/mm3 Lymph # (Auto) (1.32-3.57) K/mm3 [place] # (Auto) (0.30-0.82) K/mm3 Eos # (Auto) (0.04-0.54) K/mm3 Baso # (Auto) (0.01-0.08) K/mm3 Sodium (136-145) mEq/L Potassium (3.5-5.1) mEq/L Chloride (98-107) mEq/L Carbon Dioxide (21-32) mEq/L Anion Gap (5-15) BUN (7-18) mg/dL Creatinine (0.7-1.3) mg/dL Est Cr Clr Drug Dosing mL/min Estimated GFR (MDRD) (>60) mL/min BUN/Creatinine Ratio (14-18) Glucose (83-115) mg/dL POC Glucose 374 H (83-110) mg/dL Calcium (8.5-10.1) mg/dL Magnesium (1.8-2.4) mg/dl C-Reactive Protein (<1.0) mg/dL Vancomycin Trough (10.0-20.0) Blood Type A POSITIVE Gel Antibody Screen Negative Crossmatch See Detail 04/25/17 04/25/17 04/25/17 Range/Units 17:55 21:15 21:16 WBC (4.23-9.07) K/mm3 RBC (4.63-6.08) M/mm3 Hgb (13.7-17.5) gm/L Hct (40.1-51.0) % MCV (79.0-92.2) fl MCH (25.7-32.2) pg MCHC (32.2-35.5) g/dl RDW Std Deviation (35.1-43.9) fL Plt Count (163-337) K/mm3 MPV (9.4-12.3) fl Neut % (Auto) (34.0-67.9) % Lymph % (Auto) (21.8-53.1) % [place] % (Auto) (5.3-12.2) % Eos % (Auto) (0.8-7.0) Baso % (Auto) (0.1-1.2) % Neut # (Auto) (1.78-5.38) K/mm3 Lymph # (Auto) (1.32-3.57) K/mm3 [place] # (Auto) (0.30-0.82) K/mm3 Eos # (Auto) (0.04-0.54) K/mm3 Baso # (Auto) (0.01-0.08) K/mm3 Sodium 136 (136-145) mEq/L Potassium 4.4 (3.5-5.1) mEq/L Chloride 102 (98-107) mEq/L Carbon Dioxide 27 (21-32) mEq/L Anion Gap 11.4 (5-15) BUN 11 (7-18) mg/dL Creatinine 0.9 (0.7-1.3) mg/dL Est Cr Clr Drug Dosing 52.20 mL/min Estimated GFR (MDRD) > 60 (>60) mL/min BUN/Creatinine Ratio 12.2 L (14-18) Glucose 374 H (83-115) mg/dL POC Glucose 347 H (83-110) mg/dL Calcium 8.1 L (8.5-10.1) mg/dL Magnesium 1.8 (1.8-2.4) mg/dl C-Reactive Protein (<1.0) mg/dL Vancomycin Trough 11.5 (10.0-20.0) Blood Type Gel Antibody Screen Crossmatch 04/26/17 04/26/17 04/26/17 Range/Units 05:44 05:44 05:44 WBC 3.83 L (4.23-9.07) K/mm3 RBC 2.87 L (4.63-6.08) M/mm3 Hgb 9.5 L (13.7-17.5) gm/L Hct 29.0 L (40.1-51.0) % MCV 101.0 H (79.0-92.2) fl MCH 33.1 H (25.7-32.2) pg MCHC 32.8 (32.2-35.5) g/dl RDW Std Deviation 85.9 H (35.1-43.9) fL Plt Count 128 L (163-337) K/mm3 MPV 10.8 (9.4-12.3) fl Neut % (Auto) 83.5 H (34.0-67.9) % Lymph % (Auto) 12.3 L (21.8-53.1) % [place] % (Auto) 2.9 L (5.3-12.2) % Eos % (Auto) 0 L (0.8-7.0) Baso % (Auto) 0.3 (0.1-1.2) % Neut # (Auto) 3.20 (1.78-5.38) K/mm3 Lymph # (Auto) 0.47 L (1.32-3.57) K/mm3 [place] # (Auto) 0.11 L (0.30-0.82) K/mm3 Eos # (Auto) 0.00 L (0.04-0.54) K/mm3 Baso # (Auto) 0.01 (0.01-0.08) K/mm3 Sodium 139 (136-145) mEq/L Potassium 4.4 (3.5-5.1) mEq/L Chloride 104 (98-107) mEq/L Carbon Dioxide 27 (21-32) mEq/L Anion Gap 12.4 (5-15) BUN 11 (7-18) mg/dL Creatinine 0.8 (0.7-1.3) mg/dL Est Cr Clr Drug Dosing 58.72 mL/min Estimated GFR (MDRD) > 60 (>60) mL/min BUN/Creatinine Ratio 13.8 L (14-18) Glucose 336 H (83-115) mg/dL POC Glucose (83-110) mg/dL Calcium 8.0 L (8.5-10.1) mg/dL Magnesium 1.7 L (1.8-2.4) mg/dl C-Reactive Protein 3.8 H* (<1.0) mg/dL Vancomycin Trough (10.0-20.0) Blood Type Gel Antibody Screen Crossmatch 04/26/17 04/26/17 Range/Units 07:54 12:27 WBC (4.23-9.07) K/mm3 RBC (4.63-6.08) M/mm3 Hgb (13.7-17.5) gm/L Hct (40.1-51.0) % MCV (79.0-92.2) fl MCH (25.7-32.2) pg MCHC (32.2-35.5) g/dl RDW Std Deviation (35.1-43.9) fL Plt Count (163-337) K/mm3 MPV (9.4-12.3) fl Neut % (Auto) (34.0-67.9) % Lymph % (Auto) (21.8-53.1) % [place] % (Auto) (5.3-12.2) % Eos % (Auto) (0.8-7.0) Baso % (Auto) (0.1-1.2) % Neut # (Auto) (1.78-5.38) K/mm3 Lymph # (Auto) (1.32-3.57) K/mm3 [place] # (Auto) (0.30-0.82) K/mm3 Eos # (Auto) (0.04-0.54) K/mm3 Baso # (Auto) (0.01-0.08) K/mm3 Sodium (136-145) mEq/L Potassium (3.5-5.1) mEq/L Chloride (98-107) mEq/L Carbon Dioxide (21-32) mEq/L Anion Gap (5-15) BUN (7-18) mg/dL Creatinine (0.7-1.3) mg/dL Est Cr Clr Drug Dosing mL/min Estimated GFR (MDRD) (>60) mL/min BUN/Creatinine Ratio (14-18) Glucose 457 H (83-115) mg/dL POC Glucose 342 H (83-110) mg/dL Calcium (8.5-10.1) mg/dL Magnesium (1.8-2.4) mg/dl C-Reactive Protein (<1.0) mg/dL Vancomycin Trough (10.0-20.0) Blood Type Gel Antibody Screen Crossmatch Med Orders - Current: Current Medications Acetaminophen (Tylenol) 650 mg PO Q6H PRN PRN Reason: Fever Albuterol/Ipratropium (Duoneb 3.0-0.5 Mg/3 Ml) 3 ml NEB QIDRT COUNTS INCLUDE 234 BEDS AT THE [facility] Last Admin: 04/26/17 09:40 Dose: 3 ml Apixaban (Eliquis) 5 mg PO BID COUNTS INCLUDE 234 BEDS AT THE [facility] Last Admin: 04/26/17 08:34 Dose: 5 mg Aspirin (Halfprin) 81 mg PO DAILY COUNTS INCLUDE 234 BEDS AT THE [facility] Last Admin: 04/26/17 08:35 Dose: 81 mg Dextrose/Water (Dextrose 50% In Water) 50 ml IVPUSH ASDIRECTED PRN PRN Reason: Hypoglycemia Diltiazem HCl (Cardizem) 60 mg PO Q8H COUNTS INCLUDE 234 BEDS AT THE [facility] Last Admin: 04/26/17 05:39 Dose: 60 mg Diltiazem HCl (Diltiazem) 20 mg IVPUSH Q4H PRN PRN Reason: tachycardia; HR >140 Last Admin: 04/25/17 13:58 Dose: 20 mg Docusate Sodium (Colace) 200 mg PO BID COUNTS INCLUDE 234 BEDS AT THE [facility] Last Admin: 04/26/17 08:32 Dose: 200 mg Donepezil HCl (Aricept) 10 mg PO DAILY COUNTS INCLUDE 234 BEDS AT [facility] Last Admin: 04/26/17 08:34 Dose: 10 mg Duloxetine HCl (Cymbalta) 60 mg PO DAILY COUNTS INCLUDE 234 BEDS AT [facility] Last Admin: 04/26/17 08:32 Dose: 60 mg Gabapentin (Neurontin) 300 mg PO BID COUNTS INCLUDE 234 BEDS AT [facility] Last Admin: 04/24/17 21:15 Dose: 300 mg Glipizide (Glucotrol Xl) 5 mg PO ACBREAKFAST COUNTS INCLUDE 234 BEDS AT [facility] Last Admin: 04/26/17 05:40 Dose: 5 mg Levofloxacin/Dextrose 750 mg/ (Premix) 150 mls @ 100 mls/hr IV Q24H COUNTS INCLUDE 234 BEDS AT THE [facility] Last Admin: 04/26/17 11:09 Dose: 100 mls/hr Norepinephrine Bitartrate 4 mg (/ Dextrose/Water) 250 mls @ 7.5 mls/hr IV TITRATE MALA; 2 MCG/MIN PRN Reason: Protocol Piperacillin Sod/Tazobactam (Sod 4.5 gm/ Sodium Chloride) 100 mls @ 25 mls/hr IV Q8H COUNTS INCLUDE 234 BEDS AT THE [facility] Last Admin: 04/26/17 08:44 Dose: 25 mls/hr Insulin Aspart (Novolog) 0 unit SUBCUT QIDACANDBED COUNTS INCLUDE 234 BEDS AT THE [facility] PRN Reason: Protocol Last Admin: 04/26/17 08:30 Dose: 4 units Levalbuterol HCl (Xopenex) 1.25 mg NEB Q2H PRN PRN Reason: sob/wheezing Magnesium Oxide (Magnesium Oxide) 400 mg PO DAILY COUNTS INCLUDE 234 BEDS AT THE [facility] Last Admin: 04/26/17 08:34 Dose: 400 mg Methylprednisolone Sodium Succinate (Solu-Medrol) 125 mg IVPUSH Q6H COUNTS INCLUDE 234 BEDS AT [facility] Last Admin: 04/26/17 10:27 Dose: 125 mg Metoprolol Succinate (Toprol Xl) 25 mg PO DAILY COUNTS INCLUDE 234 BEDS AT [facility] Metoprolol Tartrate (Lopressor) 5 mg IVPUSH Q4H PRN PRN Reason: heart rate Metoprolol Tartrate (Lopressor) 50 mg PO Q12HR COUNTS INCLUDE 234 BEDS AT [facility] Last Admin: 04/26/17 08:35 Dose: 50 mg Ondansetron HCl (Zofran) 4 mg IVPUSH Q4H PRN PRN Reason: Nausea/Vomiting Pantoprazole Sodium (Protonix) 40 mg PO BIDAC COUNTS INCLUDE 234 BEDS AT [facility] Last Admin: 04/26/17 05:39 Dose: 40 mg Polyethylene Glycol (Miralax) 17 gm PO DAILY COUNTS INCLUDE 234 BEDS AT [facility] Last Admin: 04/26/17 08:31 Dose: 17 gm Polysaccharide Iron Complex (Ferrex 150) 150 mg PO DAILY COUNTS INCLUDE 234 BEDS AT [facility] Last Admin: 04/26/17 08:32 Dose: 150 mg Prednisone (Prednisone) 20 mg PO DAILY COUNTS INCLUDE 234 BEDS AT [facility] Last Admin: 04/26/17 10:29 Dose: 20 mg Senna (Senna) 17.2 mg PO DAILY COUNTS INCLUDE 234 BEDS AT [facility] Last Admin: 04/26/17 08:33 Dose: 17.2 mg Sodium Chloride (Saline Flush) 10 ml FLUSH ASDIRECTED PRN PRN Reason: Keep Vein Open Last Admin: 04/23/17 07:50 Dose: 10 ml Tamsulosin HCl (Flomax) 0.4 mg PO DAILY COUNTS INCLUDE 234 BEDS AT [facility] Last Admin: 04/26/17 08:32 Dose: 0.4 mg Tramadol HCl (Ultram) 100 mg PO TID COUNTS INCLUDE 234 BEDS AT [facility] Last Admin: 04/26/17 08:32 Dose: 100 mg Discontinued Medications Acetaminophen (Tylenol) 975 mg PO NOW ONE Stop: 04/23/17 07:47 Last Admin: 04/23/17 08:10 Dose: Not Given Acetaminophen (Tylenol) 650 mg RECTAL NOW ONE Stop: 04/23/17 07:56 Last Admin: 04/23/17 08:35 Dose: 650 mg Acetaminophen (Tylenol) Confirm Administered Dose [address]-MED ONE Stop: 04/23/17 08:02 Last Admin: 04/23/17 08:09 Dose: Not Given Acetaminophen (Tylenol) 650 mg PO NOW ONE Stop: 04/25/17 07:43 Last Admin: 04/25/17 08:57 Dose: 650 mg Albuterol (Proventil Neb Soln) 2.5 mg NEB Q4H PRN PRN Reason: Shortness of Breath Albuterol/Ipratropium (Duoneb 3.0-0.5 Mg/3 Ml) 3 ml NEB QID COUNTS INCLUDE 234 BEDS AT THE [facility] Diltiazem HCl (Cardizem Cd) 180 mg PO DAILY COUNTS INCLUDE 234 BEDS AT THE [facility] Diltiazem HCl (Diltiazem) 10 mg IVPUSH ONETIME ONE Stop: 04/25/17 08:05 Last Admin: 04/25/17 09:07 Dose: 10 mg Furosemide (Lasix) 40 mg IVPUSH NOW ONE Stop: 04/25/17 07:42 Last Admin: 04/25/17 09:04 Dose: 40 mg Levofloxacin/Dextrose 750 mg/ (Premix) 150 mls @ 100 mls/hr IV ONETIME ONE Stop: 04/23/17 09:13 Last Admin: 04/23/17 08:30 Dose: 100 mls/hr Sodium Chloride (Normal Saline) 1,900 mls @ 1,000 mls/hr IV .BOLUS COUNTS INCLUDE 234 BEDS AT [facility] Last Admin: 04/23/17 07:55 Dose: 1,000 mls/hr Sodium Chloride (Normal Saline) Confirm Administered Dose 1,000 mls @ as directed .ROUTE .[facility]-MED ONE Stop: 04/23/17 09:42 Last Admin: 04/23/17 10:14 Dose: Not Given Sodium Chloride (Normal Saline) 1,500 mls @ 999 mls/hr IV ASDIRECTED COUNTS INCLUDE 234 BEDS AT THE [facility] Stop: 04/23/17 14:00 Last Admin: 04/23/17 14:03 Dose: 999 mls/hr Sodium Chloride (Normal Saline) 1,000 mls @ 100 mls/hr IV ASDIRECTED COUNTS INCLUDE 234 BEDS AT [facility] Last Admin: 04/25/17 03:26 Dose: 100 mls/hr Vancomycin HCl 1 gm/Vancomycin HCl 500 mg/ Sodium Chloride 500 mls @ 333.333 mls/hr IV Q24H COUNTS INCLUDE 234 BEDS AT [facility] Last Admin: 04/23/17 16:56 Dose: 333.333 mls/hr Vancomycin HCl 1 gm/ Sodium (Chloride) 250 mls @ 250 mls/hr IV Q12H COUNTS INCLUDE 234 BEDS AT THE [facility] Last Admin: 04/25/17 21:19 Dose: 250 mls/hr Magnesium Sulfate 2 gm/ Premix 50 mls @ 25 mls/hr IV ONETIME ONE Stop: 04/25/17 09:46 Last Admin: 04/25/17 10:30 Dose: 25 mls/hr Sodium Chloride (Normal Saline) 1,000 mls @ 50 mls/hr IV ASDIRECTED COUNTS INCLUDE 234 BEDS AT THE [facility] Piperacillin Sod/Tazobactam (Sod 4.5 gm/ Sodium Chloride) 100 mls @ 200 mls/hr IV ONETIME ONE Stop: 04/25/17 17:29 Last Admin: 04/25/17 16:49 Dose: 200 mls/hr Sodium Chloride (Normal Saline) 1,000 mls @ 75 mls/hr IV ASDIRECTED COUNTS INCLUDE 234 BEDS AT THE [facility] Stop: 04/26/17 01:45 Last Admin: 04/25/17 17:56 Dose: 75 mls/hr Vancomycin HCl 1 gm/Vancomycin HCl 250 mg/ Sodium Chloride 250 mls @ 250 mls/ hr IV Q12H COUNTS INCLUDE 234 BEDS AT [facility] Last Admin: 04/26/17 10:06 Dose: 250 mls/hr Iopamidol (Isovue-300 (61%)) 100 ml IVPUSH ONETIME ONE Stop: 04/25/17 08:55 Last Admin: 04/25/17 09:53 Dose: 100 ml Metformin HCl (Glucophage) 250 mg PO BIDMEALS COUNTS INCLUDE 234 BEDS AT [facility] Last Admin: 04/25/17 06:17 Dose: 250 mg Methylprednisolone Sodium Succinate (Solu-Medrol) 80 mg IV ONETIME ONE Stop: 04/25/17 07:43 Last Admin: 04/25/17 09:03 Dose: 80 mg Metoprolol Succinate (Toprol Xl) 25 mg PO DAILY COUNTS INCLUDE 234 BEDS AT [facility] Last Admin: 04/25/17 08:53 Dose: 25 mg Ondansetron HCl (Zofran) Confirm Administered Dose 4 mg .ROUTE .[facility]-MED ONE Stop: 04/25/17 10:33 Last Admin: 04/25/17 11:31 Dose: 4 mg Sodium Chloride (Saline Flush) 10 ml FLUSH ONETIME PRN PRN Reason: IV FLUSH Stop: 04/25/17 12:00 Last Admin: 04/25/17 09:53 Dose: 10 ml Vancomycin HCl (Pharmacy To Dose - Vancomycin) 0 dose .XX ASDIRECTED COUNTS INCLUDE 234 BEDS AT THE [facility] Vancomycin HCl (Vancomycin) Confirm Administered Dose 500 mg .ROUTE .[facility]-MED ONE Stop: 04/23/17 16:43 Last Admin: 04/23/17 16:53 Dose: Not Given Vancomycin HCl (Vancomycin) Confirm Administered Dose 1 gm .ROUTE .[facility]-MED ONE Stop: 04/23/17 16:43 Last Admin: 04/23/17 16:53 Dose: Not Given - Exam Quality Assessment: Supplemental Oxygen, DVT Prophylaxis General: Alert, Oriented, Cooperative, No Acute Distress, Other (pleasant and talkative) HEENT: Pupils Equal, EOMI, Mucous Membr. Moist/[place] Neck: Supple Lungs: Normal Respiratory Effort, Decreased Breath Sounds, Rales (bilat bases) Cardiovascular: Irregular Rhythm GI/Abdominal Exam: Normal Bowel Sounds, Soft, Non-Tender. No: Guarding, Rigid, Rebound, Tender (Male) Exam: Deferred Extremities: Other (mild edema to arms bilat- improved from yesterday, LE without edema) Peripheral Pulses: 2+: Dorsalis Pedis (L), Dorsalis Pedis (R) Neurological: No New Focal Deficit Psy/Mental Status: Alert, Normal Affect - Problem List & Annotations (1) Sepsis SNOMED Code(s): 19933450 Code(s): A41.9 - SEPSIS, UNSPECIFIED ORGANISM Status: Acute Priority: High Current Visit: Yes QualifierTitle: Sepsis type: sepsis due to unspecified organism Qualified Code(s): A41.9 - Sepsis, unspecified organism (2) Hypotension SNOMED Code(s): 21952851 Code(s): I95.9 - HYPOTENSION, UNSPECIFIED Status: Resolved Priority: High Current Visit: Yes (3) Tachycardia SNOMED Code(s): 4347245 Code(s): R00.0 - TACHYCARDIA, UNSPECIFIED Status: Resolved Current Visit : No (4) Pneumonia SNOMED Code(s): 836701643 Code(s): J18.9 - PNEUMONIA, UNSPECIFIED ORGANISM Status: Acute Priority: High Current Visit: Yes QualifierTitle: Pneumonia type: due to unspecified organism Laterality: right Lung location: middle lobe of lung Qualified Code(s): J18.1 - Lobar pneumonia, unspecified organism (5) Anemia SNOMED Code(s): 112000679 Code(s): D64.9 - ANEMIA, UNSPECIFIED Status: Acute Priority: High Current Visit: Yes QualifierTitle: Anemia type: unspecified type Qualified Code(s): D64.9 - Anemia, unspecified (6) Abdominal pain SNOMED Code(s): 66417698 Code(s): R10.9 - UNSPECIFIED ABDOMINAL PAIN Status: Acute Priority: High Current Visit: Yes QualifierTitle: Abdominal location: generalized Qualified Code(s): R10.84 - Generalized abdominal pain (7) Atrial fibrillation SNOMED Code(s): 64992792 Code(s): I48.91 - UNSPECIFIED ATRIAL FIBRILLATION Status: Chronic Priority: Medium Current Visit: Yes QualifierTitle: Atrial fibrillation type: chronic Qualified Code(s): I48.2 - Chronic atrial fibrillation (8) CAD (coronary artery disease) SNOMED Code(s): 01161543 Code(s): I25.10 - ATHSCL HEART DISEASE OF [place] CORONARY ARTERY W/O ANG PCTRS Status: Chronic Priority: Medium Current Visit: Yes QualifierTitle: Coronary Disease-Associated Artery/Lesion type: unspecified vessel or lesion type [place] vs. transplanted heart: [place] heart - Problem List Review Problem List Initiated/Reviewed/Updated: Yes - My Orders Last 24 Hours: My Active Orders 04/26/17 06:56 OT Evaluation and Treatment [CONS] Routine PT Evaluation and Treatment [CONS] Routine 04/26/17 09:00 Iron Polysaccharides Complex [Ferrex 150] 150 mg PO DAILY 04/26/17 13:01 Magnesium Oxide 800 mg PO ONETIME ONE 04/26/17 Lunch Full Liquid Diet [DIET] - Plan Plan:: Impression: Sepsis--Hypotension, tachycardia, febrile on admission ---VSS today LA elevated--5.9-->2.9; Recheck LA yesterday afternoon was WNL. Caution with fluid due to presumed acute heart failure exacerbation clinically Treat infection as below R/O cardiac etiology in addition to infection; Troponin, EKG and BNP this morning--all negative, BNP slight elevation Switch albuterol to xopenex Nebs for tachycardia reason Acute respiratory failure--improving Supplemental oxygen to keep saturations >90% RT/Nebs/IS/FV Tx PNA as below Bilateral infiltrates, R>L PNA Levaquin and Zosyn IV--DC vanco today Follow daily labs Repeat CXR tomorrow Presumed acute CHF exacerbation--clinically---improved Awaiting labs as above Last echo 12/11/16--EF of 55-65%, mild AV stenosis, mild biatrial dilation, mildto moderate MVR, mild to mod elevated RV pressure at 47.9- report reviewed Lasix 40mg IVP given yesterday Hold gabapentin as this can cause edema Hypomagnesemia-- Replete as needed and follow cont oral mag as scheduled Follow with daily labs Anemia- etiology uncertain, likely some component of acute on chronic and partly dilutional but need to investigate further 11.4-->8.6--7.5---s/p 2 units PRBC was 10.6 and 9.5 today Iron studies, occult stool, B12, folate A fib on Eliquis--rates 80-90's today -Cont with scheduled home cardizem and metoprolol today Chronic COPD/Hx of PNA Former Tobacco, 1969 HTN-- HLD- check lipid panel, cont statin DM ype II--A1C, hold metformin due to sepsis History of CAD/PR CVA Depression Other: Continue ICU status Cheema cath for monitoring of I&O in critically ill patient GI/DVT prophylax- Teds and SCD's--no chemical due to hgb drop/anemia Home meds Daily Labs PT/OT consult SW/CSM consult---DC plan pending improvements, likely 2-4 more days Patient is DNR/DNI status PCP is Dr. Turner with [facility] in [place] <Annamaria Martinez - Last Filed: 04/27/17 16:21> - Patient Data Vitals - Most Recent: Last Vital Signs Temp 36.2 C 04/27/17 13:06 Pulse 94 04/27/17 13:06 Resp 16 04/27/17 13:06 BP 104/81 04/27/17 13:06 Pulse Ox 95 04/27/17 15:45 I&O - Last 24 Hours: Intake & Output 04/27/17 04/27/17 04/27/17 06:59 14:59 22:59 Intake Total 294 5240 300 Output Total 415 473 125 Balance -121 8423 175 Lab Results Last 24 Hours: Laboratory Results - last 24 hr 04/26/17 04/26/17 04/27/17 Range/Units 17:35 21:55 05:43 WBC 6.80 (4.23-9.07) K/mm3 RBC 2.87 L (4.63-6.08) M/mm3 Hgb 9.5 L (13.7-17.5) gm/L Hct 28.7 L (40.1-51.0) % MCV 100.0 H (79.0-92.2) fl MCH 33.1 H (25.7-32.2) pg MCHC 33.1 (32.2-35.5) g/dl RDW Std Deviation 81.8 H (35.1-43.9) fL Plt Count 140 L (163-337) K/mm3 MPV 10.8 (9.4-12.3) fl Neut % (Auto) 89.7 H (34.0-67.9) % Lymph % (Auto) 6.9 L (21.8-53.1) % [place] % (Auto) 2.8 L (5.3-12.2) % Eos % (Auto) 0 L (0.8-7.0) Baso % (Auto) 0.0 L (0.1-1.2) % Neut # (Auto) 6.10 H (1.78-5.38) K/mm3 Lymph # (Auto) 0.47 L (1.32-3.57) K/mm3 [place] # (Auto) 0.19 L (0.30-0.82) K/mm3 Eos # (Auto) 0.00 L (0.04-0.54) K/mm3 Baso # (Auto) 0.00 L (0.01-0.08) K/mm3 Manual Slide Review Abnormal smear Sodium (136-145) mEq/L Potassium (3.5-5.1) mEq/L Chloride (98-107) mEq/L Carbon Dioxide (21-32) mEq/L Anion Gap (5-15) BUN (7-18) mg/dL Creatinine (0.7-1.3) mg/dL Est Cr Clr Drug Dosing mL/min Estimated GFR (MDRD) (>60) mL/min BUN/Creatinine Ratio (14-18) Glucose 406 H (83-115) mg/dL POC Glucose 371 H (83-110) mg/dL Calcium (8.5-10.1) mg/dL Magnesium (1.8-2.4) mg/dl Troponin I (0.00-0.056) ng/mL C-Reactive Protein (<1.0) mg/dL 04/27/17 04/27/17 04/27/17 Range/Units 05:43 05:43 06:31 WBC (4.23-9.07) K/mm3 RBC (4.63-6.08) M/mm3 Hgb (13.7-17.5) gm/L Hct (40.1-51.0) % MCV (79.0-92.2) fl MCH (25.7-32.2) pg MCHC (32.2-35.5) g/dl RDW Std Deviation (35.1-43.9) fL Plt Count (163-337) K/mm3 MPV (9.4-12.3) fl Neut % (Auto) (34.0-67.9) % Lymph % (Auto) (21.8-53.1) % [place] % (Auto) (5.3-12.2) % Eos % (Auto) (0.8-7.0) Baso % (Auto) (0.1-1.2) % Neut # (Auto) (1.78-5.38) K/mm3 Lymph # (Auto) (1.32-3.57) K/mm3 [place] # (Auto) (0.30-0.82) K/mm3 Eos # (Auto) (0.04-0.54) K/mm3 Baso # (Auto) (0.01-0.08) K/mm3 Manual Slide Review Sodium 137 (136-145) mEq/L Potassium 4.1 (3.5-5.1) mEq/L Chloride 102 (98-107) mEq/L Carbon Dioxide 27 (21-32) mEq/L Anion Gap 12.1 (5-15) BUN 17 (7-18) mg/dL Creatinine 0.8 (0.7-1.3) mg/dL Est Cr Clr Drug Dosing 58.72 mL/min Estimated GFR (MDRD) > 60 (>60) mL/min BUN/Creatinine Ratio 21.3 H (14-18) Glucose 249 H (83-115) mg/dL POC Glucose 259 H (83-110) mg/dL Calcium 8.2 L (8.5-10.1) mg/dL Magnesium 1.8 (1.8-2.4) mg/dl Troponin I (0.00-0.056) ng/mL C-Reactive Protein 1.5 H* (<1.0) mg/dL 04/27/17 04/27/17 Range/Units 09:55 13:00 WBC (4.23-9.07) K/mm3 RBC (4.63-6.08) M/mm3 Hgb (13.7-17.5) gm/L Hct (40.1-51.0) % MCV (79.0-92.2) fl MCH (25.7-32.2) pg MCHC (32.2-35.5) g/dl RDW Std Deviation (35.1-43.9) fL Plt Count (163-337) K/mm3 MPV (9.4-12.3) fl Neut % (Auto) (34.0-67.9) % Lymph % (Auto) (21.8-53.1) % [place] % (Auto) (5.3-12.2) % Eos % (Auto) (0.8-7.0) Baso % (Auto) (0.1-1.2) % Neut # (Auto) (1.78-5.38) K/mm3 Lymph # (Auto) (1.32-3.57) K/mm3 [place] # (Auto) (0.30-0.82) K/mm3 Eos # (Auto) (0.04-0.54) K/mm3 Baso # (Auto) (0.01-0.08) K/mm3 Manual Slide Review Sodium (136-145) mEq/L Potassium (3.5-5.1) mEq/L Chloride (98-107) mEq/L Carbon Dioxide (21-32) mEq/L Anion Gap (5-15) BUN (7-18) mg/dL Creatinine (0.7-1.3) mg/dL Est Cr Clr Drug Dosing mL/min Estimated GFR (MDRD) (>60) mL/min BUN/Creatinine Ratio (14-18) Glucose (83-115) mg/dL POC Glucose 397 H (83-110) mg/dL Calcium (8.5-10.1) mg/dL Magnesium (1.8-2.4) mg/dl Troponin I 0.025 (0.00-0.056) ng/mL C-Reactive Protein (<1.0) mg/dL Greg Results Last 24 Hours: Microbiology 04/23/17 14:15 Respiratory Virus Panel (PCR) ([facility]) - Final Nasopharyngeal Swab - Nare, Unspecified 04/26/17 14:30 Occult Blood - Final Stool / Feces Med Orders - Current: Current Medications Acetaminophen (Tylenol) 650 mg PO Q6H PRN PRN Reason: Fever Albuterol/Ipratropium (Duoneb 3.0-0.5 Mg/3 Ml) 3 ml NEB QIDRT COUNTS INCLUDE 234 BEDS AT THE [facility] Last Admin: 04/27/17 15:45 Dose: 3 ml Apixaban (Eliquis) 5 mg PO BID COUNTS INCLUDE 234 BEDS AT THE [facility] Last Admin: 04/27/17 09:50 Dose: 5 mg Aspirin (Halfprin) 81 mg PO DAILY COUNTS INCLUDE 234 BEDS AT THE [facility] Last Admin: 04/27/17 09:48 Dose: 81 mg Dextrose/Water (Dextrose 50% In Water) 50 ml IVPUSH ASDIRECTED PRN PRN Reason: Hypoglycemia Diltiazem HCl (Cardizem) 60 mg PO Q8H COUNTS INCLUDE 234 BEDS AT THE [facility] Last Admin: 04/27/17 13:05 Dose: 60 mg Diltiazem HCl (Diltiazem) 20 mg IVPUSH Q4H PRN PRN Reason: tachycardia; HR >140 Last Admin: 04/25/17 13:58 Dose: 20 mg Docusate Sodium (Colace) 200 mg PO BID COUNTS INCLUDE 234 BEDS AT THE [facility] Last Admin: 04/27/17 10:03 Dose: 200 mg Donepezil HCl (Aricept) 10 mg PO DAILY COUNTS INCLUDE 234 BEDS AT THE [facility] Last Admin: 04/27/17 09:50 Dose: 10 mg Duloxetine HCl (Cymbalta) 60 mg PO DAILY COUNTS INCLUDE 234 BEDS AT THE [facility] Last Admin: 04/27/17 09:47 Dose: 60 mg Gabapentin (Neurontin) 300 mg PO BID COUNTS INCLUDE 234 BEDS AT THE [facility] Last Admin: 04/24/17 21:15 Dose: 300 mg Glipizide (Glucotrol Xl) 5 mg PO ACBREAKFAST COUNTS INCLUDE 234 BEDS AT THE [facility] Last Admin: 04/27/17 06:32 Dose: 5 mg Levofloxacin/Dextrose 750 mg/ (Premix) 150 mls @ 100 mls/hr IV Q24H COUNTS INCLUDE 234 BEDS AT THE [facility] Last Admin: 04/27/17 12:09 Dose: 100 mls/hr Norepinephrine Bitartrate 4 mg (/ Dextrose/Water) 250 mls @ 7.5 mls/hr IV TITRATE MALA; 2 MCG/MIN PRN Reason: Protocol Piperacillin Sod/Tazobactam (Sod 4.5 gm/ Sodium Chloride) 100 mls @ 25 mls/hr IV Q8H COUNTS INCLUDE 234 BEDS AT THE [facility] Last Admin: 04/27/17 16:10 Dose: 25 mls/hr Insulin Aspart (Novolog) 0 unit SUBCUT QIDACANDBED COUNTS INCLUDE 234 BEDS AT THE [facility] PRN Reason: Protocol Last Admin: 04/27/17 13:03 Dose: 15 units Levalbuterol HCl (Xopenex) 1.25 mg NEB Q2H PRN PRN Reason: sob/wheezing Magnesium Oxide (Magnesium Oxide) 400 mg PO DAILY COUNTS INCLUDE 234 BEDS AT THE [facility] Last Admin: 04/27/17 09:51 Dose: 400 mg Methylprednisolone Sodium Succinate (Solu-Medrol) 125 mg IVPUSH Q6H COUNTS INCLUDE 234 BEDS AT THE [facility] Last Admin: 04/27/17 16:10 Dose: 125 mg Metoprolol Succinate (Toprol Xl) 25 mg PO DAILY COUNTS INCLUDE 234 BEDS AT THE [facility] Last Admin: 04/27/17 09:53 Dose: 25 mg Metoprolol Tartrate (Lopressor) 5 mg IVPUSH Q4H PRN PRN Reason: heart rate Metoprolol Tartrate (Lopressor) 50 mg PO Q12HR COUNTS INCLUDE 234 BEDS AT THE [facility] Last Admin: 04/27/17 09:52 Dose: 50 mg Ondansetron HCl (Zofran) 4 mg IVPUSH Q4H PRN PRN Reason: Nausea/Vomiting Pantoprazole Sodium (Protonix) 40 mg PO BIDAC COUNTS INCLUDE 234 BEDS AT THE [facility] Last Admin: 04/27/17 16:10 Dose: 40 mg Polyethylene Glycol (Miralax) 17 gm PO DAILY COUNTS INCLUDE 234 BEDS AT THE [facility] Last Admin: 04/27/17 10:04 Dose: 17 gm Polysaccharide Iron Complex (Ferrex 150) 150 mg PO DAILY COUNTS INCLUDE 234 BEDS AT THE [facility] Last Admin: 04/27/17 09:55 Dose: 150 mg Prednisone (Prednisone) 20 mg PO DAILY COUNTS INCLUDE 234 BEDS AT THE [facility] Last Admin: 04/27/17 09:55 Dose: 20 mg Senna (Senna) 17.2 mg PO DAILY COUNTS INCLUDE 234 BEDS AT THE [facility] Last Admin: 04/27/17 09:54 Dose: 17.2 mg Sodium Chloride (Saline Flush) 10 ml FLUSH ASDIRECTED PRN PRN Reason: Keep Vein Open Last Admin: 04/23/17 07:50 Dose: 10 ml Tamsulosin HCl (Flomax) 0.4 mg PO DAILY COUNTS INCLUDE 234 BEDS AT THE [facility] Last Admin: 04/27/17 09:51 Dose: 0.4 mg Tramadol HCl (Ultram) 100 mg PO TID COUNTS INCLUDE 234 BEDS AT THE [facility] Last Admin: 04/27/17 16:10 Dose: 100 mg Discontinued Medications Acetaminophen (Tylenol) 975 mg PO NOW ONE Stop: 04/23/17 07:47 Last Admin: 04/23/17 08:10 Dose: Not Given Acetaminophen (Tylenol) 650 mg RECTAL NOW ONE Stop: 04/23/17 07:56 Last Admin: 04/23/17 08:35 Dose: 650 mg Acetaminophen (Tylenol) Confirm Administered Dose 650 mg .ROUTE .STK-MED ONE Stop: 04/23/17 08:02 Last Admin: 04/23/17 08:09 Dose: Not Given Acetaminophen (Tylenol) 650 mg PO NOW ONE Stop: 04/25/17 07:43 Last Admin: 04/25/17 08:57 Dose: 650 mg Albuterol (Proventil Neb Soln) 2.5 mg NEB Q4H PRN PRN Reason: Shortness of Breath Albuterol/Ipratropium (Duoneb 3.0-0.5 Mg/3 Ml) 3 ml NEB QID COUNTS INCLUDE 234 BEDS AT THE [facility] Diltiazem HCl (Cardizem Cd) 180 mg PO DAILY COUNTS INCLUDE 234 BEDS AT THE [facility] Diltiazem HCl (Diltiazem) 10 mg IVPUSH ONETIME ONE Stop: 04/25/17 08:05 Last Admin: 04/25/17 09:07 Dose: 10 mg Furosemide (Lasix) 40 mg IVPUSH NOW ONE Stop: 04/25/17 07:42 Last Admin: 04/25/17 09:04 Dose: 40 mg Levofloxacin/Dextrose 750 mg/ (Premix) 150 mls @ 100 mls/hr IV ONETIME ONE Stop: 04/23/17 09:13 Last Admin: 04/23/17 08:30 Dose: 100 mls/hr Sodium Chloride (Normal Saline) 1,900 mls @ 1,000 mls/hr IV .BOLUS COUNTS INCLUDE 234 BEDS AT THE [facility] Last Admin: 04/23/17 07:55 Dose: 1,000 mls/hr Sodium Chloride (Normal Saline) Confirm Administered Dose 1,000 mls @ as directed .ROUTE .STK-MED ONE Stop: 04/23/17 09:42 Last Admin: 04/23/17 10:14 Dose: Not Given Sodium Chloride (Normal Saline) 1,500 mls @ 999 mls/hr IV ASDIRECTED COUNTS INCLUDE 234 BEDS AT THE [facility] Stop: 04/23/17 14:00 Last Admin: 04/23/17 14:03 Dose: 999 mls/hr Sodium Chloride (Normal Saline) 1,000 mls @ 100 mls/hr IV ASDIRECTED COUNTS INCLUDE 234 BEDS AT THE [facility] Last Admin: 04/25/17 03:26 Dose: 100 mls/hr Vancomycin HCl 1 gm/Vancomycin HCl 500 mg/ Sodium Chloride 500 mls @ 333.333 mls/hr IV Q24H COUNTS INCLUDE 234 BEDS AT THE [facility] Last Admin: 04/23/17 16:56 Dose: 333.333 mls/hr Vancomycin HCl 1 gm/ Sodium (Chloride) 250 mls @ 250 mls/hr IV Q12H COUNTS INCLUDE 234 BEDS AT THE [facility] Last Admin: 04/25/17 21:19 Dose: 250 mls/hr Magnesium Sulfate 2 gm/ Premix 50 mls @ 25 mls/hr IV ONETIME ONE Stop: 04/25/17 09:46 Last Admin: 04/25/17 10:30 Dose: 25 mls/hr Sodium Chloride (Normal Saline) 1,000 mls @ 50 mls/hr IV ASDIRECTED COUNTS INCLUDE 234 BEDS AT THE [facility] Piperacillin Sod/Tazobactam (Sod 4.5 gm/ Sodium Chloride) 100 mls @ 200 mls/hr IV ONETIME ONE Stop: 04/25/17 17:29 Last Admin: 04/25/17 16:49 Dose: 200 mls/hr Sodium Chloride (Normal Saline) 1,000 mls @ 75 mls/hr IV ASDIRECTED COUNTS INCLUDE 234 BEDS AT THE [facility] Stop: 04/26/17 01:45 Last Admin: 04/25/17 17:56 Dose: 75 mls/hr Vancomycin HCl 1 gm/Vancomycin HCl 250 mg/ Sodium Chloride 250 mls @ 250 mls/ hr IV Q12H COUNTS INCLUDE 234 BEDS AT THE [facility] Last Admin: 04/26/17 10:06 Dose: 250 mls/hr Magnesium Sulfate 2 gm/ Premix 50 mls @ 25 mls/hr IV ONETIME ONE Stop: 04/27/17 11:33 Last Admin: 04/27/17 10:09 Dose: 25 mls/hr Insulin Aspart (Novolog) 0 unit SUBCUT QIDACANDBED COUNTS INCLUDE 234 BEDS AT THE [facility] PRN Reason: Protocol Last Admin: 04/26/17 08:30 Dose: 4 units Insulin Aspart (Novolog) 0 unit SUBCUT QIDACANDBED COUNTS INCLUDE 234 BEDS AT THE [facility] PRN Reason: Protocol Iopamidol (Isovue-300 (61%)) 100 ml IVPUSH ONETIME ONE Stop: 04/25/17 08:55 Last Admin: 04/25/17 09:53 Dose: 100 ml Magnesium Oxide (Magnesium Oxide) 800 mg PO ONETIME ONE Stop: 04/26/17 13:02 Last Admin: 04/26/17 13:43 Dose: 800 mg Metformin HCl (Glucophage) 250 mg PO BIDMEALS COUNTS INCLUDE 234 BEDS AT THE [facility] Last Admin: 04/25/17 06:17 Dose: 250 mg Methylprednisolone Sodium Succinate (Solu-Medrol) 80 mg IV ONETIME ONE Stop: 04/25/17 07:43 Last Admin: 04/25/17 09:03 Dose: 80 mg Metoprolol Succinate (Toprol Xl) 25 mg PO DAILY COUNTS INCLUDE 234 BEDS AT THE [facility] Last Admin: 04/25/17 08:53 Dose: 25 mg Ondansetron HCl (Zofran) Confirm Administered Dose 4 mg .ROUTE .STK-MED ONE Stop: 04/25/17 10:33 Last Admin: 04/25/17 11:31 Dose: 4 mg Sodium Chloride (Saline Flush) 10 ml FLUSH ONETIME PRN PRN Reason: IV FLUSH Stop: 04/25/17 12:00 Last Admin: 04/25/17 09:53 Dose: 10 ml Vancomycin HCl (Pharmacy To Dose - Vancomycin) 0 dose .XX ASDIRECTED COUNTS INCLUDE 234 BEDS AT THE [facility] Vancomycin HCl (Vancomycin) Confirm Administered Dose 500 mg .ROUTE .STK-MED ONE Stop: 04/23/17 16:43 Last Admin: 04/23/17 16:53 Dose: Not Given Vancomycin HCl (Vancomycin) Confirm Administered Dose 1 gm .ROUTE .STK-MED ONE Stop: 04/23/17 16:43 Last Admin: 04/23/17 16:53 Dose: Not Given - Problem List & Annotations (1) Fever SNOMED Code(s): 567648901 Code(s): R50.9 - FEVER, UNSPECIFIED Status: Acute Current Visit: Yes Qualifiers: Fever type: unspecified Qualified Code(s): R50.9 - Fever, unspecified (2) Pneumonia SNOMED Code(s): 124449268 Code(s): J18.9 - PNEUMONIA, UNSPECIFIED ORGANISM Status: Acute Priority: High Current Visit: Yes Qualifiers: Pneumonia type: due to unspecified organism Laterality: right Lung location: middle lobe of lung Qualified Code(s): J18.1 - Lobar pneumonia, unspecified organism (3) Sepsis SNOMED Code(s): 61760322 Code(s): A41.9 - SEPSIS, UNSPECIFIED ORGANISM Status: Acute Priority: High Current Visit: Yes Qualifiers: Sepsis type: sepsis due to unspecified organism Qualified Code(s): A41.9 - Sepsis, unspecified organism (4) Abdominal pain SNOMED Code(s): 03422485 Code(s): R10.9 - UNSPECIFIED ABDOMINAL PAIN Status: Acute Priority: High Current Visit: Yes Qualifiers: Abdominal location: generalized Qualified Code(s): R10.84 - Generalized abdominal pain (5) Aortic valve disorder SNOMED Code(s): 2747407 Code(s): I35.9 - NONRHEUMATIC AORTIC VALVE DISORDER, UNSPECIFIED Status: Acute Current Visit: No (6) Atrial fibrillation SNOMED Code(s): 63181981 Code(s): I48.91 - UNSPECIFIED ATRIAL FIBRILLATION Status: Chronic Priority: Medium Current Visit: Yes Qualifiers: Atrial fibrillation type: chronic Qualified Code(s): I48.2 - Chronic atrial fibrillation - My Orders Last 24 Hours: My Active Orders 04/26/17 Dinner Mechanical Soft Diet [DIET] 04/27/17 09:00 Metoprolol Succinate [Toprol XL] 25 mg PO DAILY 04/27/17 09:40 EKG Documentation Completion [RC] ASDIRECTED EKG Documentation Completion [RC] STAT EKG 12 Lead [EK] Routine 04/27/17 16:00 TROPONIN I [CHEM] Routine - Plan Plan:: LOS>96 hours with slow response to PNA treatment
[2017-04-26] MEDS ORDERED: Insulin Aspart 100 Units/ML 3 ML Pen SUBCUT SCH (17:00)
[2017-04-27] MEDS: Piperacillin/Tazobactam 4.5 GM in Sodium Chloride 0.9% 100 ML IV SCH ×3 (00:24→16:10)
[2017-04-27] MEDS: methylPREDNISolone Sodium Succinate 125 MG/2 ML SDV IVPUSH SCH ×4 (04:30→22:46)
[2017-04-27] MEDS: Diltiazem IR 60 MG Tab PO SCH ×3 (04:33→20:54)
[2017-04-27] MEDS: Pantoprazole 40 MG Tab.CR PO SCH ×2 (06:32→16:10)
[2017-04-27] MEDS: glipiZIDE 5 MG Tab.ER PO SCH (06:32)
[2017-04-27] MEDS: Albuterol/Ipratropium 3.0-0.5 MG/3 ML Neb Soln NEB SCH ×4 (06:35→21:21)
[2017-04-27] MEDS: Insulin Aspart 100 Units/ML 3 ML Pen SUBCUT SCH ×4 (06:35→21:30)
[2017-04-27] MEDS ORDERED: Magnesium Sulfate/Water 2 GM in Premix Bag 1 BAG IV ONE (09:34)
[2017-04-27] MEDS: DULoxetine 30 MG Cap PO SCH (09:47)
[2017-04-27] MEDS: Aspirin 81 MG Tab.EC PO SCH (09:48)
[2017-04-27] MEDS: traMADol 50 MG Tab PO SCH ×3 (09:48→20:53)
[2017-04-27] MEDS: Apixaban 5 MG Tab PO SCH ×2 (09:50→20:53)
[2017-04-27] MEDS: Donepezil 10 MG Tab PO SCH (09:50)
[2017-04-27] MEDS: Magnesium Oxide 400 MG Tab PO SCH (09:51)
[2017-04-27] MEDS: Tamsulosin 0.4 MG Cap.ER PO SCH (09:51)
[2017-04-27] MEDS: Metoprolol Tartrate 50 MG Tab PO SCH ×2 (09:52→20:53)
[2017-04-27] MEDS: Metoprolol Succinate 25 MG Tab.ER PO SCH (09:53)
[2017-04-27] MEDS: Sennosides 8.6 MG Tab PO SCH (09:54)
[2017-04-27] MEDS: predniSONE 20 MG Tab PO SCH (09:55)
[2017-04-27] MEDS: Iron Polysaccharides Complex 150 MG Cap PO SCH (09:55)
[2017-04-27] MEDS: Docusate Sodium 100 MG Cap PO SCH ×2 (10:03→20:53)
[2017-04-27] MEDS: Polyethylene Glycol 3350 Powder 17 GM Packet PO SCH (10:04)
--- NOTE | 2017-04-27 11:04 | PCM.PN ---
- General Info Date of Service: 04/27/17 Subjective Update: Patient complained of CP, ECG/TnI were unremarkable. Functional Status: Reports: Tolerating Diet - Review of Systems General: Reports: Weakness, Malaise HEENT: Reports: No Symptoms Pulmonary: Reports: No Symptoms Cardiovascular: Reports: No Symptoms Gastrointestinal: Reports: No Symptoms Genitourinary: Reports: No Symptoms Musculoskeletal: Reports: No Symptoms Skin: Reports: No Symptoms Neurological: Reports: No Symptoms Psychiatric: Reports: No Symptoms - Patient Data Vitals - Most Recent: Last Vital Signs Temp 36.4 C 04/27/17 08:00 Pulse 96 04/27/17 09:53 Resp 20 04/27/17 09:40 BP 93/53 L 04/27/17 09:53 Pulse Ox 90 L 04/27/17 09:40 Weight - Most Recent: 88.813 kg I&O - Last 24 Hours: Intake & Output 04/26/17 04/27/17 04/27/17 22:59 06:59 14:59 Intake Total 2149 294 Output Total 550 415 123 Balance 1599 -121 -123 Lab Results Last 24 Hours: Laboratory Results - last 24 hr 04/26/17 04/26/17 04/26/17 Range/Units 12:27 17:35 21:55 WBC (4.23-9.07) K/mm3 RBC (4.63-6.08) M/mm3 Hgb (13.7-17.5) gm/L Hct (40.1-51.0) % MCV (79.0-92.2) fl MCH (25.7-32.2) pg MCHC (32.2-35.5) g/dl RDW Std Deviation (35.1-43.9) fL Plt Count (163-337) K/mm3 MPV (9.4-12.3) fl Neut % (Auto) (34.0-67.9) % Lymph % (Auto) (21.8-53.1) % Worth % (Auto) (5.3-12.2) % Eos % (Auto) (0.8-7.0) Baso % (Auto) (0.1-1.2) % Neut # (Auto) (1.78-5.38) K/mm3 Lymph # (Auto) (1.32-3.57) K/mm3 Worth # (Auto) (0.30-0.82) K/mm3 Eos # (Auto) (0.04-0.54) K/mm3 Baso # (Auto) (0.01-0.08) K/mm3 Manual Slide Review Sodium (136-145) mEq/L Potassium (3.5-5.1) mEq/L Chloride (98-107) mEq/L Carbon Dioxide (21-32) mEq/L Anion Gap (5-15) BUN (7-18) mg/dL Creatinine (0.7-1.3) mg/dL Est Cr Clr Drug Dosing mL/min Estimated GFR (MDRD) (>60) mL/min BUN/Creatinine Ratio (14-18) Glucose 457 H 406 H (83-115) mg/dL POC Glucose 371 H (83-110) mg/dL Calcium (8.5-10.1) mg/dL Magnesium (1.8-2.4) mg/dl Troponin I (0.00-0.056) ng/mL C-Reactive Protein (<1.0) mg/dL 04/27/17 04/27/17 04/27/17 Range/Units 05:43 05:43 05:43 WBC 6.80 (4.23-9.07) K/mm3 RBC 2.87 L (4.63-6.08) M/mm3 Hgb 9.5 L (13.7-17.5) gm/L Hct 28.7 L (40.1-51.0) % MCV 100.0 H (79.0-92.2) fl MCH 33.1 H (25.7-32.2) pg MCHC 33.1 (32.2-35.5) g/dl RDW Std Deviation 81.8 H (35.1-43.9) fL Plt Count 140 L (163-337) K/mm3 MPV 10.8 (9.4-12.3) fl Neut % (Auto) 89.7 H (34.0-67.9) % Lymph % (Auto) 6.9 L (21.8-53.1) % Worth % (Auto) 2.8 L (5.3-12.2) % Eos % (Auto) 0 L (0.8-7.0) Baso % (Auto) 0.0 L (0.1-1.2) % Neut # (Auto) 6.10 H (1.78-5.38) K/mm3 Lymph # (Auto) 0.47 L (1.32-3.57) K/mm3 Worth # (Auto) 0.19 L (0.30-0.82) K/mm3 Eos # (Auto) 0.00 L (0.04-0.54) K/mm3 Baso # (Auto) 0.00 L (0.01-0.08) K/mm3 Manual Slide Review Abnormal smear Sodium 137 (136-145) mEq/L Potassium 4.1 (3.5-5.1) mEq/L Chloride 102 (98-107) mEq/L Carbon Dioxide 27 (21-32) mEq/L Anion Gap 12.1 (5-15) BUN 17 (7-18) mg/dL Creatinine 0.8 (0.7-1.3) mg/dL Est Cr Clr Drug Dosing 58.72 mL/min Estimated GFR (MDRD) > 60 (>60) mL/min BUN/Creatinine Ratio 21.3 H (14-18) Glucose 249 H (83-115) mg/dL POC Glucose (83-110) mg/dL Calcium 8.2 L (8.5-10.1) mg/dL Magnesium 1.8 (1.8-2.4) mg/dl Troponin I (0.00-0.056) ng/mL C-Reactive Protein 1.5 H* (<1.0) mg/dL 04/27/17 04/27/17 Range/Units 06:31 09:55 WBC (4.23-9.07) K/mm3 RBC (4.63-6.08) M/mm3 Hgb (13.7-17.5) gm/L Hct (40.1-51.0) % MCV (79.0-92.2) fl MCH (25.7-32.2) pg MCHC (32.2-35.5) g/dl RDW Std Deviation (35.1-43.9) fL Plt Count (163-337) K/mm3 MPV (9.4-12.3) fl Neut % (Auto) (34.0-67.9) % Lymph % (Auto) (21.8-53.1) % Worth % (Auto) (5.3-12.2) % Eos % (Auto) (0.8-7.0) Baso % (Auto) (0.1-1.2) % Neut # (Auto) (1.78-5.38) K/mm3 Lymph # (Auto) (1.32-3.57) K/mm3 Worth # (Auto) (0.30-0.82) K/mm3 Eos # (Auto) (0.04-0.54) K/mm3 Baso # (Auto) (0.01-0.08) K/mm3 Manual Slide Review Sodium (136-145) mEq/L Potassium (3.5-5.1) mEq/L Chloride (98-107) mEq/L Carbon Dioxide (21-32) mEq/L Anion Gap (5-15) BUN (7-18) mg/dL Creatinine (0.7-1.3) mg/dL Est Cr Clr Drug Dosing mL/min Estimated GFR (MDRD) (>60) mL/min BUN/Creatinine Ratio (14-18) Glucose (83-115) mg/dL POC Glucose 259 H (83-110) mg/dL Calcium (8.5-10.1) mg/dL Magnesium (1.8-2.4) mg/dl Troponin I 0.025 (0.00-0.056) ng/mL C-Reactive Protein (<1.0) mg/dL Greg Results Last 24 Hours: Microbiology 04/23/17 14:15 Respiratory Virus Panel (PCR) ([facility]) - Final Nasopharyngeal Swab - Nare, Unspecified 04/26/17 14:30 Occult Blood - Final Stool / Feces Med Orders - Current: Current Medications Acetaminophen (Tylenol) 650 mg PO Q6H PRN PRN Reason: Fever Albuterol/Ipratropium (Duoneb 3.0-0.5 Mg/3 Ml) 3 ml NEB QIDRT [facility] Last Admin: 04/27/17 09:15 Dose: 3 ml Apixaban (Eliquis) 5 mg PO BID [facility] Last Admin: 04/27/17 09:50 Dose: 5 mg Aspirin (Halfprin) 81 mg PO DAILY [facility] Last Admin: 04/27/17 09:48 Dose: 81 mg Dextrose/Water (Dextrose 50% In Water) 50 ml IVPUSH ASDIRECTED PRN PRN Reason: Hypoglycemia Diltiazem HCl (Cardizem) 60 mg PO Q8H [facility] Last Admin: 04/27/17 04:33 Dose: 60 mg Diltiazem HCl (Diltiazem) 20 mg IVPUSH Q4H PRN PRN Reason: tachycardia; HR >140 Last Admin: 04/25/17 13:58 Dose: 20 mg Docusate Sodium (Colace) 200 mg PO BID [facility] Last Admin: 04/27/17 10:03 Dose: 200 mg Donepezil HCl (Aricept) 10 mg PO DAILY [facility] Last Admin: 04/27/17 09:50 Dose: 10 mg Duloxetine HCl (Cymbalta) 60 mg PO DAILY [facility] Last Admin: 04/27/17 09:47 Dose: 60 mg Gabapentin (Neurontin) 300 mg PO BID [facility] Last Admin: 04/24/17 21:15 Dose: 300 mg Glipizide (Glucotrol Xl) 5 mg PO ACBREAKFAST [facility] Last Admin: 04/27/17 06:32 Dose: 5 mg Levofloxacin/Dextrose 750 mg/ (Premix) 150 mls @ 100 mls/hr IV Q24H [facility] Last Admin: 04/26/17 11:09 Dose: 100 mls/hr Norepinephrine Bitartrate 4 mg (/ Dextrose/Water) 250 mls @ 7.5 mls/hr IV TITRATE [facility]; 2 MCG/MIN PRN Reason: Protocol Piperacillin Sod/Tazobactam (Sod 4.5 gm/ Sodium Chloride) 100 mls @ 25 mls/hr IV Q8H [facility] Last Admin: 04/27/17 10:04 Dose: 25 mls/hr Magnesium Sulfate 2 gm/ Premix 50 mls @ 25 mls/hr IV ONETIME ONE Stop: 04/27/17 11:33 Last Admin: 04/27/17 10:09 Dose: 25 mls/hr Insulin Aspart (Novolog) 0 unit SUBCUT QIDACANDBED [facility] PRN Reason: Protocol Last Admin: 04/27/17 06:35 Dose: 9 units Levalbuterol HCl (Xopenex) 1.25 mg NEB Q2H PRN PRN Reason: sob/wheezing Magnesium Oxide (Magnesium Oxide) 400 mg PO DAILY [facility] Last Admin: 04/27/17 09:51 Dose: 400 mg Methylprednisolone Sodium Succinate (Solu-Medrol) 125 mg IVPUSH Q6H [facility] Last Admin: 04/27/17 10:05 Dose: 125 mg Metoprolol Succinate (Toprol Xl) 25 mg PO DAILY [facility] Last Admin: 04/27/17 09:53 Dose: 25 mg Metoprolol Tartrate (Lopressor) 5 mg IVPUSH Q4H PRN PRN Reason: heart rate Metoprolol Tartrate (Lopressor) 50 mg PO Q12HR [facility] Last Admin: 04/27/17 09:52 Dose: 50 mg Ondansetron HCl (Zofran) 4 mg IVPUSH Q4H PRN PRN Reason: Nausea/Vomiting Pantoprazole Sodium (Protonix) 40 mg PO BIDAC [facility] Last Admin: 04/27/17 06:32 Dose: 40 mg Polyethylene Glycol (Miralax) 17 gm PO DAILY [facility] Last Admin: 04/27/17 10:04 Dose: 17 gm Polysaccharide Iron Complex (Ferrex 150) 150 mg PO DAILY [facility] Last Admin: 04/27/17 09:55 Dose: 150 mg Prednisone (Prednisone) 20 mg PO DAILY [facility] Last Admin: 04/27/17 09:55 Dose: 20 mg Senna (Senna) 17.2 mg PO DAILY [facility] Last Admin: 04/27/17 09:54 Dose: 17.2 mg Sodium Chloride (Saline Flush) 10 ml FLUSH ASDIRECTED PRN PRN Reason: Keep Vein Open Last Admin: 04/23/17 07:50 Dose: 10 ml Tamsulosin HCl (Flomax) 0.4 mg PO DAILY [facility] Last Admin: 04/27/17 09:51 Dose: 0.4 mg Tramadol HCl (Ultram) 100 mg PO TID [facility] Last Admin: 04/27/17 09:48 Dose: 100 mg Discontinued Medications Acetaminophen (Tylenol) 975 mg PO NOW ONE Stop: 04/23/17 07:47 Last Admin: 04/23/17 08:10 Dose: Not Given Acetaminophen (Tylenol) 650 mg RECTAL NOW ONE Stop: 04/23/17 07:56 Last Admin: 04/23/17 08:35 Dose: 650 mg Acetaminophen (Tylenol) Confirm Administered Dose 650 mg .ROUTE .STK-MED ONE Stop: 04/23/17 08:02 Last Admin: 04/23/17 08:09 Dose: Not Given Acetaminophen (Tylenol) 650 mg PO NOW ONE Stop: 04/25/17 07:43 Last Admin: 04/25/17 08:57 Dose: 650 mg Albuterol (Proventil Neb Soln) 2.5 mg NEB Q4H PRN PRN Reason: Shortness of Breath Albuterol/Ipratropium (Duoneb 3.0-0.5 Mg/3 Ml) 3 ml NEB QID [facility] Diltiazem HCl (Cardizem Cd) 180 mg PO DAILY [facility] Diltiazem HCl (Diltiazem) 10 mg IVPUSH ONETIME ONE Stop: 04/25/17 08:05 Last Admin: 04/25/17 09:07 Dose: 10 mg Furosemide (Lasix) 40 mg IVPUSH NOW ONE Stop: 04/25/17 07:42 Last Admin: 04/25/17 09:04 Dose: 40 mg Levofloxacin/Dextrose 750 mg/ (Premix) 150 mls @ 100 mls/hr IV ONETIME ONE Stop: 04/23/17 09:13 Last Admin: 04/23/17 08:30 Dose: 100 mls/hr Sodium Chloride (Normal Saline) 1,900 mls @ 1,000 mls/hr IV .BOLUS [facility] Last Admin: 04/23/17 07:55 Dose: 1,000 mls/hr Sodium Chloride (Normal Saline) Confirm Administered Dose 1,000 mls @ as directed .ROUTE .STK-MED ONE Stop: 04/23/17 09:42 Last Admin: 04/23/17 10:14 Dose: Not Given Sodium Chloride (Normal Saline) 1,500 mls @ 999 mls/hr IV ASDIRECTED [facility] Stop: 04/23/17 14:00 Last Admin: 04/23/17 14:03 Dose: 999 mls/hr Sodium Chloride (Normal Saline) 1,000 mls @ 100 mls/hr IV ASDIRECTED [facility] Last Admin: 04/25/17 03:26 Dose: 100 mls/hr Vancomycin HCl 1 gm/Vancomycin HCl 500 mg/ Sodium Chloride 500 mls @ 333.333 mls/hr IV Q24H [facility] Last Admin: 04/23/17 16:56 Dose: 333.333 mls/hr Vancomycin HCl 1 gm/ Sodium (Chloride) 250 mls @ 250 mls/hr IV Q12H [facility] Last Admin: 04/25/17 21:19 Dose: 250 mls/hr Magnesium Sulfate 2 gm/ Premix 50 mls @ 25 mls/hr IV ONETIME ONE Stop: 04/25/17 09:46 Last Admin: 04/25/17 10:30 Dose: 25 mls/hr Sodium Chloride (Normal Saline) 1,000 mls @ 50 mls/hr IV ASDIRECTED [facility] Piperacillin Sod/Tazobactam (Sod 4.5 gm/ Sodium Chloride) 100 mls @ 200 mls/hr IV ONETIME ONE Stop: 04/25/17 17:29 Last Admin: 04/25/17 16:49 Dose: 200 mls/hr Sodium Chloride (Normal Saline) 1,000 mls @ 75 mls/hr IV ASDIRECTED [facility] Stop: 04/26/17 01:45 Last Admin: 04/25/17 17:56 Dose: 75 mls/hr Vancomycin HCl 1 gm/Vancomycin HCl 250 mg/ Sodium Chloride 250 mls @ 250 mls/ hr IV Q12H [facility] Last Admin: 04/26/17 10:06 Dose: 250 mls/hr Insulin Aspart (Novolog) 0 unit SUBCUT QIDACANDBED [facility] PRN Reason: Protocol Last Admin: 04/26/17 08:30 Dose: 4 units Insulin Aspart (Novolog) 0 unit SUBCUT QIDACANDBED [facility] PRN Reason: Protocol Iopamidol (Isovue-300 (61%)) 100 ml IVPUSH ONETIME ONE Stop: 04/25/17 08:55 Last Admin: 04/25/17 09:53 Dose: 100 ml Magnesium Oxide (Magnesium Oxide) 800 mg PO ONETIME ONE Stop: 04/26/17 13:02 Last Admin: 04/26/17 13:43 Dose: 800 mg Metformin HCl (Glucophage) 250 mg PO BIDMEALS [facility] Last Admin: 04/25/17 06:17 Dose: 250 mg Methylprednisolone Sodium Succinate (Solu-Medrol) 80 mg IV ONETIME ONE Stop: 04/25/17 07:43 Last Admin: 04/25/17 09:03 Dose: 80 mg Metoprolol Succinate (Toprol Xl) 25 mg PO DAILY [facility] Last Admin: 04/25/17 08:53 Dose: 25 mg Ondansetron HCl (Zofran) Confirm Administered Dose 4 mg .ROUTE .STK-MED ONE Stop: 04/25/17 10:33 Last Admin: 04/25/17 11:31 Dose: 4 mg Sodium Chloride (Saline Flush) 10 ml FLUSH ONETIME PRN PRN Reason: IV FLUSH Stop: 04/25/17 12:00 Last Admin: 04/25/17 09:53 Dose: 10 ml Vancomycin HCl (Pharmacy To Dose - Vancomycin) 0 dose .XX ASDIRECTED [facility] Vancomycin HCl (Vancomycin) Confirm Administered Dose 500 mg .ROUTE .STK-MED ONE Stop: 04/23/17 16:43 Last Admin: 04/23/17 16:53 Dose: Not Given Vancomycin HCl (Vancomycin) Confirm Administered Dose 1 gm .ROUTE .STK-MED ONE Stop: 04/23/17 16:43 Last Admin: 04/23/17 16:53 Dose: Not Given - Exam Quality Assessment: Supplemental Oxygen, DVT Prophylaxis General: Alert, Oriented, Cooperative, No Acute Distress HEENT: Pupils Equal, Pupils Reactive, EOMI Neck: Supple, Trachea Midline, No JVD Lungs: Normal Respiratory Effort, Decreased Breath Sounds Cardiovascular: Regular Rate, Irregular Rhythm GI/Abdominal Exam: Normal Bowel Sounds, Soft, Non-Tender, No Organomegaly, No Distention (Male) Exam: Deferred Back Exam: Normal Inspection Extremities: Normal Inspection Skin: Warm Neurological: No New Focal Deficit Psy/Mental Status: Alert - Problem List & Annotations (1) Fever SNOMED Code(s): 508577044 Code(s): R50.9 - FEVER, UNSPECIFIED Status: Acute Current Visit: Yes Qualifiers: Fever type: unspecified Qualified Code(s): R50.9 - Fever, unspecified (2) Pneumonia SNOMED Code(s): 043690427 Code(s): J18.9 - PNEUMONIA, UNSPECIFIED ORGANISM Status: Acute Priority: High Current Visit: Yes Qualifiers: Pneumonia type: due to unspecified organism Laterality: right Lung location: middle lobe of lung Qualified Code(s): J18.1 - Lobar pneumonia, unspecified organism (3) Sepsis SNOMED Code(s): 38840240 Code(s): A41.9 - SEPSIS, UNSPECIFIED ORGANISM Status: Acute Priority: High Current Visit: Yes Qualifiers: Sepsis type: sepsis due to unspecified organism Qualified Code(s): A41.9 - Sepsis, unspecified organism (4) Abdominal pain SNOMED Code(s): 21235952 Code(s): R10.9 - UNSPECIFIED ABDOMINAL PAIN Status: Acute Priority: High Current Visit: Yes Qualifiers: Abdominal location: generalized Qualified Code(s): R10.84 - Generalized abdominal pain (5) Aortic valve disorder SNOMED Code(s): 4040181 Code(s): I35.9 - NONRHEUMATIC AORTIC VALVE DISORDER, UNSPECIFIED Status: Acute Current Visit: No (6) Atrial fibrillation SNOMED Code(s): 56825925 Code(s): I48.91 - UNSPECIFIED ATRIAL FIBRILLATION Status: Chronic Priority: Medium Current Visit: Yes Qualifiers: Atrial fibrillation type: chronic Qualified Code(s): I48.2 - Chronic atrial fibrillation - Problem List Review Problem List Initiated/Reviewed/Updated: Yes - My Orders Last 24 Hours: My Active Orders 04/26/17 13:15 Insulin Aspart [NovoLOG] See Protocol SUBCUT QIDACANDBED 04/26/17 Dinner Mechanical Soft Diet [DIET] 04/27/17 09:00 Metoprolol Succinate [Toprol XL] 25 mg PO DAILY 04/27/17 09:34 Magnesium Sulfate/Water [Magnesium Sulfate 2 GM in Water 50 ML] 2 gm Premix Bag 1 bag IV ONETIME 04/27/17 09:40 EKG Documentation Completion [RC] ASDIRECTED EKG Documentation Completion [RC] STAT EKG 12 Lead [EK] Routine - Plan Plan:: Impression: Sepsis--Hypotension, tachycardia, febrile on admission ---VSS today LA elevated--5.9-->2.9; Recheck LA yesterday afternoon was WNL. Caution with fluid due to presumed acute heart failure exacerbation clinically Treat infection as below R/O cardiac etiology in addition to infection; Troponin, EKG and BNP this morning--all negative, BNP slight elevation Switch albuterol to xopenex Nebs for tachycardia reason Acute respiratory failure--improving Supplemental oxygen to keep saturations >90% RT/Nebs/IS/FV Tx PNA as below Bilateral infiltrates, R>L PNA Levaquin and Zosyn IV--DC vanco today Follow daily labs Repeat CXR tomorrow Presumed acute CHF exacerbation--clinically---improved Awaiting labs as above Last echo 12/11/16--EF of 55-65%, mild AV stenosis, mild biatrial dilation, mildto moderate MVR, mild to mod elevated RV pressure at 47.9- report reviewed Lasix 40mg IVP given yesterday Hold gabapentin as this can cause edema Hypomagnesemia-- Replete as needed and follow cont oral mag as scheduled Follow with daily labs Anemia- etiology uncertain, likely some component of acute on chronic and partly dilutional but need to investigate further 11.4-->8.6--7.5---s/p 2 units PRBC was 10.6 and 9.5 today Iron studies, occult stool, B12, folate A fib on Eliquis--rates 80-90's today -Cont with scheduled home cardizem and metoprolol today CAD/CP---ECG/TnI WNL Chronic COPD/Hx of PNA Former Tobacco, 1969 HTN-- HLD- check lipid panel, cont statin DM ype II--A1C, hold metformin due to sepsis History of CAD/ME CVA Depression Other: Continue ICU status Biswas cath for monitoring of I&O in critically ill patient GI/DVT prophylax- Teds and SCD's--no chemical due to hgb drop/anemia Home meds Daily Labs PT/OT consult SW/CSM consult---DC plan pending improvements, likely 2-4 more days Patient is DNR/DNI status PCP is Dr. Turner with [facility] in [place] LOS>96 hours slow response to antibiotic therapy for PNA.
[2017-04-27] MEDS: Levofloxacin/Dextrose 5%-Water 750 MG in Premix Bag 1 BAG IV SCH (12:09)
[2017-04-27] MEDS ORDERED: Sodium Chloride 0.9% 1,000 ML IV SCH (23:00)
[2017-04-28] MEDS: Piperacillin/Tazobactam 4.5 GM in Sodium Chloride 0.9% 100 ML IV SCH ×3 (00:35→17:07)
[2017-04-28] MEDS: Diltiazem IR 60 MG Tab PO SCH ×3 (05:13→21:53)
[2017-04-28] MEDS: glipiZIDE 5 MG Tab.ER PO SCH (05:13)
[2017-04-28] MEDS: methylPREDNISolone Sodium Succinate 125 MG/2 ML SDV IVPUSH SCH ×2 (05:13→09:21)
[2017-04-28] MEDS: Pantoprazole 40 MG Tab.CR PO SCH ×2 (05:14→15:29)
[2017-04-28] MEDS: Albuterol/Ipratropium 3.0-0.5 MG/3 ML Neb Soln NEB SCH ×4 (06:27→20:56)
[2017-04-28] MEDS: Insulin Aspart 100 Units/ML 3 ML Pen SUBCUT SCH ×4 (06:53→21:51)
[2017-04-28] MEDS: Aspirin 81 MG Tab.EC PO SCH (09:19)
[2017-04-28] MEDS: Apixaban 5 MG Tab PO SCH ×2 (09:19→21:53)
[2017-04-28] MEDS: Donepezil 10 MG Tab PO SCH (09:19)
[2017-04-28] MEDS: traMADol 50 MG Tab PO SCH ×3 (09:19→21:53)
[2017-04-28] MEDS: Sennosides 8.6 MG Tab PO SCH (09:20)
[2017-04-28] MEDS: Docusate Sodium 100 MG Cap PO SCH ×2 (09:20→21:53)
[2017-04-28] MEDS: DULoxetine 30 MG Cap PO SCH (09:20)
[2017-04-28] MEDS: Tamsulosin 0.4 MG Cap.ER PO SCH (09:20)
[2017-04-28] MEDS: Iron Polysaccharides Complex 150 MG Cap PO SCH (09:21)
[2017-04-28] MEDS: Gabapentin 300 MG Cap PO SCH ×2 (09:21→21:53)
[2017-04-28] MEDS: Magnesium Oxide 400 MG Tab PO SCH (09:21)
[2017-04-28] MEDS: predniSONE 20 MG Tab PO SCH (09:21)
[2017-04-28] MEDS: Polyethylene Glycol 3350 Powder 17 GM Packet PO SCH (09:21)
[2017-04-28] MEDS: Metoprolol Tartrate 50 MG Tab PO SCH ×2 (09:40→21:52)
[2017-04-28] MEDS: Metoprolol Succinate 25 MG Tab.ER PO SCH (09:41)
[2017-04-28] MEDS: Levofloxacin/Dextrose 5%-Water 750 MG in Premix Bag 1 BAG IV SCH (10:53)
[2017-04-28] MEDS ORDERED: Magnesium Sulfate/Water 2 GM in Premix Bag 1 BAG IV ONE (12:55)
--- NOTE | 2017-04-28 13:01 | PCM.PN ---
- General Info Date of Service: 04/28/17 Functional Status: Reports: Tolerating Diet, Urinating - Review of Systems General: Reports: Weakness HEENT: Reports: No Symptoms Pulmonary: Reports: No Symptoms Cardiovascular: Reports: No Symptoms Gastrointestinal: Reports: No Symptoms Genitourinary: Reports: No Symptoms Musculoskeletal: Reports: No Symptoms Skin: Reports: No Symptoms Neurological: Reports: No Symptoms Psychiatric: Reports: No Symptoms - Patient Data Vitals - Most Recent: Last Vital Signs Temp 36.2 C 04/28/17 12:00 Pulse 86 04/28/17 12:00 Resp 18 04/28/17 12:00 BP 110/63 04/28/17 12:00 Pulse Ox 95 04/28/17 12:00 Weight - Most Recent: 92.533 kg I&O - Last 24 Hours: Intake & Output 04/27/17 04/28/17 04/28/17 22:59 06:59 14:59 Intake Total 900 500 480 Output Total 700 335 270 Balance 200 165 210 Lab Results Last 24 Hours: Laboratory Results - last 24 hr 04/27/17 04/27/17 04/27/17 Range/Units 13:00 16:00 16:53 Glucose (83-115) mg/dL POC Glucose 397 H 388 H (83-110) mg/dL Troponin I < 0.017 (0.00-0.056) ng/mL 04/27/17 04/28/17 04/28/17 Range/Units 21:16 06:49 11:38 Glucose 484 H (83-115) mg/dL POC Glucose 282 H 337 H (83-110) mg/dL Troponin I (0.00-0.056) ng/mL Med Orders - Current: Current Medications Acetaminophen (Tylenol) 650 mg PO Q6H PRN PRN Reason: Fever Albuterol/Ipratropium (Duoneb 3.0-0.5 Mg/3 Ml) 3 ml NEB QIDRT [facility] Last Admin: 04/28/17 10:12 Dose: 3 ml Apixaban (Eliquis) 5 mg PO BID [facility] Last Admin: 04/28/17 09:19 Dose: 5 mg Aspirin (Halfprin) 81 mg PO DAILY [facility] Last Admin: 04/28/17 09:19 Dose: 81 mg Dextrose/Water (Dextrose 50% In Water) 50 ml IVPUSH ASDIRECTED PRN PRN Reason: Hypoglycemia Diltiazem HCl (Cardizem) 60 mg PO Q8H [facility] Last Admin: 04/28/17 05:13 Dose: 60 mg Diltiazem HCl (Diltiazem) 20 mg IVPUSH Q4H PRN PRN Reason: tachycardia; HR >140 Last Admin: 04/25/17 13:58 Dose: 20 mg Docusate Sodium (Colace) 200 mg PO BID [facility] Last Admin: 04/28/17 09:20 Dose: 200 mg Donepezil HCl (Aricept) 10 mg PO DAILY [facility] Last Admin: 04/28/17 09:19 Dose: 10 mg Duloxetine HCl (Cymbalta) 60 mg PO DAILY [facility] Last Admin: 04/28/17 09:20 Dose: 60 mg Gabapentin (Neurontin) 300 mg PO BID [facility] Last Admin: 04/28/17 09:21 Dose: 300 mg Glipizide (Glucotrol Xl) 5 mg PO ACBREAKFAST [facility] Last Admin: 04/28/17 05:13 Dose: 5 mg Levofloxacin/Dextrose 750 mg/ (Premix) 150 mls @ 100 mls/hr IV Q24H [facility] Last Admin: 04/28/17 10:53 Dose: 100 mls/hr Norepinephrine Bitartrate 4 mg (/ Dextrose/Water) 250 mls @ 7.5 mls/hr IV TITRATE MALA; 2 MCG/MIN PRN Reason: Protocol Piperacillin Sod/Tazobactam (Sod 4.5 gm/ Sodium Chloride) 100 mls @ 25 mls/hr IV Q8H [facility] Last Admin: 04/28/17 09:21 Dose: 25 mls/hr Magnesium Sulfate 2 gm/ Premix 50 mls @ 25 mls/hr IV ONETIME ONE Stop: 04/28/17 14:54 Insulin Aspart (Novolog) 0 unit SUBCUT QIDACANDBED [facility] PRN Reason: Protocol Last Admin: 04/28/17 11:42 Dose: 12 units Levalbuterol HCl (Xopenex) 1.25 mg NEB Q2H PRN PRN Reason: sob/wheezing Magnesium Oxide (Magnesium Oxide) 400 mg PO DAILY [facility] Last Admin: 04/28/17 09:21 Dose: 400 mg Methylprednisolone Sodium Succinate (Solu-Medrol) 80 mg IVPUSH Q12H [facility] Metoprolol Succinate (Toprol Xl) 25 mg PO DAILY [facility] Last Admin: 04/28/17 09:41 Dose: Not Given Metoprolol Tartrate (Lopressor) 5 mg IVPUSH Q4H PRN PRN Reason: heart rate Metoprolol Tartrate (Lopressor) 50 mg PO Q12HR [facility] Last Admin: 04/28/17 09:40 Dose: Not Given Ondansetron HCl (Zofran) 4 mg IVPUSH Q4H PRN PRN Reason: Nausea/Vomiting Pantoprazole Sodium (Protonix) 40 mg PO BIDAC [facility] Last Admin: 04/28/17 05:14 Dose: 40 mg Polyethylene Glycol (Miralax) 17 gm PO DAILY [facility] Last Admin: 04/28/17 09:21 Dose: 17 gm Polysaccharide Iron Complex (Ferrex 150) 150 mg PO DAILY [facility] Last Admin: 04/28/17 09:21 Dose: 150 mg Senna (Senna) 17.2 mg PO DAILY [facility] Last Admin: 04/28/17 09:20 Dose: 17.2 mg Sodium Chloride (Saline Flush) 10 ml FLUSH ASDIRECTED PRN PRN Reason: Keep Vein Open Last Admin: 04/23/17 07:50 Dose: 10 ml Tamsulosin HCl (Flomax) 0.4 mg PO DAILY [facility] Last Admin: 04/28/17 09:20 Dose: 0.4 mg Tramadol HCl (Ultram) 100 mg PO TID [facility] Last Admin: 04/28/17 09:19 Dose: 100 mg Discontinued Medications Acetaminophen (Tylenol) 975 mg PO NOW ONE Stop: 04/23/17 07:47 Last Admin: 04/23/17 08:10 Dose: Not Given Acetaminophen (Tylenol) 650 mg RECTAL NOW ONE Stop: 04/23/17 07:56 Last Admin: 04/23/17 08:35 Dose: 650 mg Acetaminophen (Tylenol) Confirm Administered Dose 650 mg .ROUTE .STK-MED ONE Stop: 04/23/17 08:02 Last Admin: 04/23/17 08:09 Dose: Not Given Acetaminophen (Tylenol) 650 mg PO NOW ONE Stop: 04/25/17 07:43 Last Admin: 04/25/17 08:57 Dose: 650 mg Albuterol (Proventil Neb Soln) 2.5 mg NEB Q4H PRN PRN Reason: Shortness of Breath Albuterol/Ipratropium (Duoneb 3.0-0.5 Mg/3 Ml) 3 ml NEB QID [facility] Diltiazem HCl (Cardizem Cd) 180 mg PO DAILY [facility] Diltiazem HCl (Diltiazem) 10 mg IVPUSH ONETIME ONE Stop: 04/25/17 08:05 Last Admin: 04/25/17 09:07 Dose: 10 mg Furosemide (Lasix) 40 mg IVPUSH NOW ONE Stop: 04/25/17 07:42 Last Admin: 04/25/17 09:04 Dose: 40 mg Levofloxacin/Dextrose 750 mg/ (Premix) 150 mls @ 100 mls/hr IV ONETIME ONE Stop: 04/23/17 09:13 Last Admin: 04/23/17 08:30 Dose: 100 mls/hr Sodium Chloride (Normal Saline) 1,900 mls @ 1,000 mls/hr IV .BOLUS [facility] Last Admin: 04/23/17 07:55 Dose: 1,000 mls/hr Sodium Chloride (Normal Saline) Confirm Administered Dose 1,000 mls @ as directed .ROUTE .STK-MED ONE Stop: 04/23/17 09:42 Last Admin: 04/23/17 10:14 Dose: Not Given Sodium Chloride (Normal Saline) 1,500 mls @ 999 mls/hr IV ASDIRECTED [facility] Stop: 04/23/17 14:00 Last Admin: 04/23/17 14:03 Dose: 999 mls/hr Sodium Chloride (Normal Saline) 1,000 mls @ 100 mls/hr IV ASDIRECTED [facility] Last Admin: 04/25/17 03:26 Dose: 100 mls/hr Vancomycin HCl 1 gm/Vancomycin HCl 500 mg/ Sodium Chloride 500 mls @ 333.333 mls/hr IV Q24H [facility] Last Admin: 04/23/17 16:56 Dose: 333.333 mls/hr Vancomycin HCl 1 gm/ Sodium (Chloride) 250 mls @ 250 mls/hr IV Q12H [facility] Last Admin: 04/25/17 21:19 Dose: 250 mls/hr Magnesium Sulfate 2 gm/ Premix 50 mls @ 25 mls/hr IV ONETIME ONE Stop: 04/25/17 09:46 Last Admin: 04/25/17 10:30 Dose: 25 mls/hr Sodium Chloride (Normal Saline) 1,000 mls @ 50 mls/hr IV ASDIRECTED [facility] Piperacillin Sod/Tazobactam (Sod 4.5 gm/ Sodium Chloride) 100 mls @ 200 mls/hr IV ONETIME ONE Stop: 04/25/17 17:29 Last Admin: 04/25/17 16:49 Dose: 200 mls/hr Sodium Chloride (Normal Saline) 1,000 mls @ 75 mls/hr IV ASDIRECTED [facility] Stop: 04/26/17 01:45 Last Admin: 04/25/17 17:56 Dose: 75 mls/hr Vancomycin HCl 1 gm/Vancomycin HCl 250 mg/ Sodium Chloride 250 mls @ 250 mls/ hr IV Q12H [facility] Last Admin: 04/26/17 10:06 Dose: 250 mls/hr Magnesium Sulfate 2 gm/ Premix 50 mls @ 25 mls/hr IV ONETIME ONE Stop: 04/27/17 11:33 Last Admin: 04/27/17 10:09 Dose: 25 mls/hr Sodium Chloride (Normal Saline) 1,000 mls @ 50 mls/hr IV ASDIRECTED [facility] Stop: 04/28/17 05:00 Last Admin: 04/27/17 22:46 Dose: 50 mls/hr Insulin Aspart (Novolog) 0 unit SUBCUT QIDACANDBED [facility] PRN Reason: Protocol Last Admin: 04/26/17 08:30 Dose: 4 units Insulin Aspart (Novolog) 0 unit SUBCUT QIDACANDBED [facility] PRN Reason: Protocol Iopamidol (Isovue-300 (61%)) 100 ml IVPUSH ONETIME ONE Stop: 04/25/17 08:55 Last Admin: 04/25/17 09:53 Dose: 100 ml Magnesium Oxide (Magnesium Oxide) 800 mg PO ONETIME ONE Stop: 04/26/17 13:02 Last Admin: 04/26/17 13:43 Dose: 800 mg Metformin HCl (Glucophage) 250 mg PO BIDTNALS [facility] Last Admin: 04/25/17 06:17 Dose: 250 mg Methylprednisolone Sodium Succinate (Solu-Medrol) 80 mg IV ONETIME ONE Stop: 04/25/17 07:43 Last Admin: 04/25/17 09:03 Dose: 80 mg Methylprednisolone Sodium Succinate (Solu-Medrol) 125 mg IVPUSH Q6H [facility] Last Admin: 04/28/17 09:21 Dose: 125 mg Metoprolol Succinate (Toprol Xl) 25 mg PO DAILY [facility] Last Admin: 04/25/17 08:53 Dose: 25 mg Ondansetron HCl (Zofran) Confirm Administered Dose 4 mg .ROUTE .STK-MED ONE Stop: 04/25/17 10:33 Last Admin: 04/25/17 11:31 Dose: 4 mg Prednisone (Prednisone) 20 mg PO DAILY [facility] Last Admin: 04/28/17 09:21 Dose: 20 mg Sodium Chloride (Saline Flush) 10 ml FLUSH ONETIME PRN PRN Reason: IV FLUSH Stop: 04/25/17 12:00 Last Admin: 04/25/17 09:53 Dose: 10 ml Vancomycin HCl (Pharmacy To Dose - Vancomycin) 0 dose .XX ASDIRECTED [facility] Vancomycin HCl (Vancomycin) Confirm Administered Dose 500 mg .ROUTE .STK-MED ONE Stop: 04/23/17 16:43 Last Admin: 04/23/17 16:53 Dose: Not Given Vancomycin HCl (Vancomycin) Confirm Administered Dose 1 gm .ROUTE .STK-MED ONE Stop: 04/23/17 16:43 Last Admin: 04/23/17 16:53 Dose: Not Given - Exam Quality Assessment: Supplemental Oxygen, DVT Prophylaxis General: Alert, Oriented, Cooperative, No Acute Distress HEENT: Pupils Equal, Pupils Reactive, EOMI Neck: Trachea Midline, No JVD Lungs: Normal Respiratory Effort Cardiovascular: Regular Rate, Irregular Rhythm GI/Abdominal Exam: Normal Bowel Sounds, Soft, Non-Tender, No Organomegaly, No Distention (Male) Exam: Deferred Back Exam: Normal Inspection Extremities: Normal Inspection Skin: Warm Neurological: No New Focal Deficit Psy/Mental Status: Alert - Problem List & Annotations (1) Fever SNOMED Code(s): 025176407 Code(s): R50.9 - FEVER, UNSPECIFIED Status: Acute Current Visit: Yes Qualifiers: Fever type: unspecified Qualified Code(s): R50.9 - Fever, unspecified (2) Pneumonia SNOMED Code(s): 974815258 Code(s): J18.9 - PNEUMONIA, UNSPECIFIED ORGANISM Status: Acute Priority: High Current Visit: Yes Qualifiers: Pneumonia type: due to unspecified organism Laterality: right Lung location: middle lobe of lung Qualified Code(s): J18.1 - Lobar pneumonia, unspecified organism (3) Sepsis SNOMED Code(s): 56276532 Code(s): A41.9 - SEPSIS, UNSPECIFIED ORGANISM Status: Acute Priority: High Current Visit: Yes Qualifiers: Sepsis type: sepsis due to unspecified organism Qualified Code(s): A41.9 - Sepsis, unspecified organism (4) Abdominal pain SNOMED Code(s): 88198321 Code(s): R10.9 - UNSPECIFIED ABDOMINAL PAIN Status: Acute Priority: High Current Visit: Yes Qualifiers: Abdominal location: generalized Qualified Code(s): R10.84 - Generalized abdominal pain (5) Aortic valve disorder SNOMED Code(s): 1123703 Code(s): I35.9 - NONRHEUMATIC AORTIC VALVE DISORDER, UNSPECIFIED Status: Acute Current Visit: No (6) Atrial fibrillation SNOMED Code(s): 35548450 Code(s): I48.91 - UNSPECIFIED ATRIAL FIBRILLATION Status: Chronic Priority: Medium Current Visit: Yes Qualifiers: Atrial fibrillation type: chronic Qualified Code(s): I48.2 - Chronic atrial fibrillation - Problem List Review Problem List Initiated/Reviewed/Updated: Yes - My Orders Last 24 Hours: My Active Orders 04/28/17 12:55 Magnesium Sulfate/Water [Magnesium Sulfate 2 GM in Water 50 ML] 2 gm Premix Bag 1 bag IV ONETIME 04/28/17 21:00 methylPREDNISolone Sod Succ [Solu-MEDROL] 80 mg IVPUSH Q12H 04/29/17 05:00 BASIC METABOLIC PANEL,BMP [CHEM] DAILY CBC WITH AUTO DIFF [HEME] DAILY CRP [C-REACTIVE PROTEIN] [CHEM] DAILY MAGNESIUM [CHEM] DAILY 04/30/17 05:00 BASIC METABOLIC PANEL,BMP [CHEM] DAILY CBC WITH AUTO DIFF [HEME] DAILY CRP [C-REACTIVE PROTEIN] [CHEM] DAILY MAGNESIUM [CHEM] DAILY 05/01/17 05:00 BASIC METABOLIC PANEL,BMP [CHEM] DAILY CBC WITH AUTO DIFF [HEME] DAILY CRP [C-REACTIVE PROTEIN] [CHEM] DAILY MAGNESIUM [CHEM] DAILY 05/02/17 05:00 BASIC METABOLIC PANEL,BMP [CHEM] DAILY CBC WITH AUTO DIFF [HEME] DAILY CRP [C-REACTIVE PROTEIN] [CHEM] DAILY MAGNESIUM [CHEM] DAILY - Plan Plan:: Impression: Sepsis--Hypotension, tachycardia, febrile on admission ---VSS today LA elevated--5.9-->2.9; Recheck LA yesterday afternoon was WNL. Caution with fluid due to presumed acute heart failure exacerbation clinically Treat infection as below R/O cardiac etiology in addition to infection; Troponin, EKG and BNP this morning--all negative, BNP slight elevation Switch albuterol to xopenex Nebs for tachycardia reason Acute respiratory failure--improving Supplemental oxygen to keep saturations >90% RT/Nebs/IS/FV Tx PNA as below Bilateral infiltrates, R>L PNA Levaquin and Zosyn IV--DC vanco today Follow daily labs Repeat CXR tomorrow Presumed acute CHF exacerbation--clinically---improved Awaiting labs as above Last echo 12/11/16--EF of 55-65%, mild AV stenosis, mild biatrial dilation, mildto moderate MVR, mild to mod elevated RV pressure at 47.9- report reviewed Lasix 40mg IVP given yesterday Hold gabapentin as this can cause edema Hypomagnesemia-- Replete as needed and follow cont oral mag/IV as scheduled Follow with daily labs Anemia- etiology uncertain, likely some component of acute on chronic and partly dilutional but need to investigate further 11.4-->8.6--7.5---s/p 2 units PRBC was 10.6 and 9.5 today Iron studies, occult stool, B12, folate A fib on Eliquis--rates 80-90's -Cont with scheduled home cardizem and metoprolol CAD/CP---ECG/TnI WNL Chronic COPD/Hx of PNA Former Tobacco, 1970 HTN-- HLD- check lipid panel, cont statin DM ype II--A1C, hold metformin due to sepsis 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 Turner with [facility] in [place] LOS>96 hours slow response to antibiotic therapy for PNA.
[2017-04-28] MEDS ORDERED: Insulin Detemir 100 Units/ML 3 ML Pen SUBCUT SCH (17:30)
[2017-04-28] MEDS ORDERED: Insulin Detemir 100 Units/ML 3 ML Pen SUBCUT ONE (18:00)
[2017-04-28] MEDS: methylPREDNISolone Sodium Succinate 40 MG/1 ML SDV IVPUSH SCH (21:52)
[2017-04-29] MEDS: Piperacillin/Tazobactam 4.5 GM in Sodium Chloride 0.9% 100 ML IV SCH ×3 (01:25→17:23)
[2017-04-29] MEDS: Pantoprazole 40 MG Tab.CR PO SCH ×2 (06:32→15:26)
[2017-04-29] MEDS: Insulin Aspart 100 Units/ML 3 ML Pen SUBCUT SCH ×4 (06:32→22:05)
[2017-04-29] MEDS: glipiZIDE 5 MG Tab.ER PO SCH (06:32)
[2017-04-29] MEDS: Diltiazem IR 60 MG Tab PO SCH ×3 (06:33→22:02)
[2017-04-29] MEDS: Albuterol/Ipratropium 3.0-0.5 MG/3 ML Neb Soln NEB SCH ×4 (07:00→20:52)
[2017-04-29] MEDS: Donepezil 10 MG Tab PO SCH (08:37)
[2017-04-29] MEDS: traMADol 50 MG Tab PO SCH ×3 (08:37→21:30)
[2017-04-29] MEDS: Polyethylene Glycol 3350 Powder 17 GM Packet PO SCH (08:37)
[2017-04-29] MEDS: Sennosides 8.6 MG Tab PO SCH (08:38)
[2017-04-29] MEDS: Aspirin 81 MG Tab.EC PO SCH (08:38)
[2017-04-29] MEDS: Docusate Sodium 100 MG Cap PO SCH ×2 (08:38→22:02)
[2017-04-29] MEDS: Magnesium Oxide 400 MG Tab PO SCH (08:38)
[2017-04-29] MEDS: DULoxetine 30 MG Cap PO SCH (08:38)
[2017-04-29] MEDS: Gabapentin 300 MG Cap PO SCH ×2 (08:38→22:02)
[2017-04-29] MEDS: Tamsulosin 0.4 MG Cap.ER PO SCH ×2 (08:38→17:22)
[2017-04-29] MEDS: methylPREDNISolone Sodium Succinate 40 MG/1 ML SDV IVPUSH SCH ×2 (08:38→22:02)
[2017-04-29] MEDS: Iron Polysaccharides Complex 150 MG Cap PO SCH (08:38)
[2017-04-29] MEDS: Apixaban 5 MG Tab PO SCH ×2 (08:38→22:02)
[2017-04-29] MEDS: Insulin Detemir 100 Units/ML 3 ML Pen SUBCUT SCH ×2 (08:39→22:30)
[2017-04-29] MEDS: Metoprolol Tartrate 50 MG Tab PO SCH ×2 (11:16→22:31)
[2017-04-29] MEDS: Levofloxacin/Dextrose 5%-Water 750 MG in Premix Bag 1 BAG IV SCH (11:18)
--- NOTE | 2017-04-29 12:16 | PCM.PN ---
- General Info Date of Service: 04/29/17 Admission Dx/Problem (Free Text): Admission Diagnosis/Problem Admission Diagnosis/Problem Sepsis "Brian" is seen this morning, he is resting comfortably in bed. Color is better , states feels "better" today. Appetite is good. He is up to chair with lift (baseline for him at [place]). VSS. HR stable, b/p stable. Labs stable. Started on solumedrol over the weekend with uptrending of glucose as expected with steroid. Functional Status: Reports: Pain Controlled, Tolerating Diet, Urinating, New Symptoms, Incentive Spirometry. Denies: Ambulating (nonambulatory---baseline) - Review of Systems General: Reports: Weakness (generalized). Denies: Fever HEENT: Reports: No Symptoms Pulmonary: Reports: Shortness of Breath (chronic- mild), Cough (improving) Cardiovascular: Reports: No Symptoms. Denies: Chest Pain, Palpitations Gastrointestinal: Reports: No Symptoms. Denies: Abdominal Pain, Diarrhea, Nausea, Vomiting Genitourinary: Reports: No Symptoms, Other (cheema) Neurological: Reports: No Symptoms Psychiatric: Reports: No Symptoms - Patient Data Vitals - Most Recent: Last Vital Signs Temp 97.4 F 04/29/17 08:00 Pulse 81 04/29/17 11:16 Resp 18 04/29/17 08:00 BP 136/94 H 04/29/17 11:16 Pulse Ox 89 L 04/29/17 09:46 Weight - Most Recent: 205 lb 6.4 oz I&O - Last 24 Hours: Intake & Output 04/28/17 04/29/17 04/29/17 22:59 06:59 14:59 Intake Total 1400 75 120 Output Total 725 420 305 Balance 675 345 -185 Lab Results Last 24 Hours: Laboratory Results - last 24 hr 04/28/17 04/28/17 04/29/17 Range/Units 17:25 21:50 05:44 WBC 3.95 L (4.23-9.07) K/mm3 RBC 2.92 L (4.63-6.08) M/mm3 Hgb 9.8 L (13.7-17.5) gm/L Hct 29.3 L (40.1-51.0) % MCV 100.3 H (79.0-92.2) fl MCH 33.6 H (25.7-32.2) pg MCHC 33.4 (32.2-35.5) g/dl RDW Std Deviation 79.0 H (35.1-43.9) fL Plt Count 114 L (163-337) K/mm3 MPV 10.8 (9.4-12.3) fl Neut % (Auto) 87.3 H (34.0-67.9) % Lymph % (Auto) 5.1 L (21.8-53.1) % [place] % (Auto) 6.8 (5.3-12.2) % Eos % (Auto) 0 L (0.8-7.0) Baso % (Auto) 0.0 L (0.1-1.2) % Neut # (Auto) 3.45 (1.78-5.38) K/mm3 Lymph # (Auto) 0.20 L (1.32-3.57) K/mm3 [place] # (Auto) 0.27 L (0.30-0.82) K/mm3 Eos # (Auto) 0.00 L (0.04-0.54) K/mm3 Baso # (Auto) 0.00 L (0.01-0.08) K/mm3 Manual Slide Review Abnormal smear Sodium (136-145) mEq/L Potassium (3.5-5.1) mEq/L Chloride (98-107) mEq/L Carbon Dioxide (21-32) mEq/L Anion Gap (5-15) BUN (7-18) mg/dL Creatinine (0.7-1.3) mg/dL Est Cr Clr Drug Dosing mL/min Estimated GFR (MDRD) (>60) mL/min BUN/Creatinine Ratio (14-18) Glucose 367 H (83-115) mg/dL POC Glucose 369 H (83-110) mg/dL Calcium (8.5-10.1) mg/dL Magnesium (1.8-2.4) mg/dl C-Reactive Protein (<1.0) mg/dL 04/29/17 04/29/17 04/29/17 Range/Units 05:54 06:28 11:25 WBC (4.23-9.07) K/mm3 RBC (4.63-6.08) M/mm3 Hgb (13.7-17.5) gm/L Hct (40.1-51.0) % MCV (79.0-92.2) fl MCH (25.7-32.2) pg MCHC (32.2-35.5) g/dl RDW Std Deviation (35.1-43.9) fL Plt Count (163-337) K/mm3 MPV (9.4-12.3) fl Neut % (Auto) (34.0-67.9) % Lymph % (Auto) (21.8-53.1) % [place] % (Auto) (5.3-12.2) % Eos % (Auto) (0.8-7.0) Baso % (Auto) (0.1-1.2) % Neut # (Auto) (1.78-5.38) K/mm3 Lymph # (Auto) (1.32-3.57) K/mm3 [place] # (Auto) (0.30-0.82) K/mm3 Eos # (Auto) (0.04-0.54) K/mm3 Baso # (Auto) (0.01-0.08) K/mm3 Manual Slide Review Sodium 134 L (136-145) mEq/L Potassium 4.5 (3.5-5.1) mEq/L Chloride 100 (98-107) mEq/L Carbon Dioxide 27 (21-32) mEq/L Anion Gap 11.5 (5-15) BUN 20 H (7-18) mg/dL Creatinine 0.9 (0.7-1.3) mg/dL Est Cr Clr Drug Dosing 52.20 mL/min Estimated GFR (MDRD) > 60 (>60) mL/min BUN/Creatinine Ratio 22.2 H (14-18) Glucose 269 H (83-115) mg/dL POC Glucose 277 H 370 H (83-110) mg/dL Calcium 8.1 L (8.5-10.1) mg/dL Magnesium 2.1 (1.8-2.4) mg/dl C-Reactive Protein < 0.2 (<1.0) mg/dL Med Orders - Current: Current Medications Acetaminophen (Tylenol) 650 mg PO Q6H PRN PRN Reason: Fever Albuterol/Ipratropium (Duoneb 3.0-0.5 Mg/3 Ml) 3 ml NEB QIDRT [facility] Last Admin: 04/29/17 09:46 Dose: 3 ml Apixaban (Eliquis) 5 mg PO BID [facility] Last Admin: 04/29/17 08:38 Dose: 5 mg Aspirin (Halfprin) 81 mg PO DAILY [facility] Last Admin: 04/29/17 08:38 Dose: 81 mg Dextrose/Water (Dextrose 50% In Water) 50 ml IVPUSH ASDIRECTED PRN PRN Reason: Hypoglycemia Diltiazem HCl (Cardizem) 60 mg PO Q8H [facility] Last Admin: 04/29/17 06:33 Dose: 60 mg Docusate Sodium (Colace) 200 mg PO BID [facility] Last Admin: 04/29/17 08:38 Dose: 200 mg Donepezil HCl (Aricept) 10 mg PO DAILY [facility] Last Admin: 04/29/17 08:37 Dose: 10 mg Duloxetine HCl (Cymbalta) 60 mg PO DAILY [facility] Last Admin: 04/29/17 08:38 Dose: 60 mg Gabapentin (Neurontin) 300 mg PO BID [facility] Last Admin: 04/29/17 08:38 Dose: 300 mg Glipizide (Glucotrol Xl) 5 mg PO ACBREAKFAST [facility] Last Admin: 04/29/17 06:32 Dose: 5 mg Levofloxacin/Dextrose 750 mg/ (Premix) 150 mls @ 100 mls/hr IV Q24H [facility] Last Admin: 04/29/17 11:18 Dose: 100 mls/hr Piperacillin Sod/Tazobactam (Sod 4.5 gm/ Sodium Chloride) 100 mls @ 25 mls/hr IV Q8H [facility] Last Admin: 04/29/17 08:39 Dose: 25 mls/hr Insulin Aspart (Novolog) 0 unit SUBCUT QIDACANDBED [facility] PRN Reason: Protocol Last Admin: 04/29/17 11:26 Dose: 15 units Insulin Detemir (Levemir) 0 unit SUBCUT BID [facility] Last Admin: 04/29/17 08:39 Dose: 8 units Levalbuterol HCl (Xopenex) 1.25 mg NEB Q2H PRN PRN Reason: sob/wheezing Magnesium Oxide (Magnesium Oxide) 400 mg PO DAILY [facility] Last Admin: 04/29/17 08:38 Dose: 400 mg Methylprednisolone Sodium Succinate (Solu-Medrol) 80 mg IVPUSH Q12H [facility] Last Admin: 04/29/17 08:38 Dose: 80 mg Metoprolol Succinate (Toprol Xl) 25 mg PO DAILY [facility] Last Admin: 04/28/17 09:41 Dose: Not Given Metoprolol Tartrate (Lopressor) 5 mg IVPUSH Q4H PRN PRN Reason: heart rate Metoprolol Tartrate (Lopressor) 50 mg PO Q12HR [facility] Last Admin: 04/29/17 11:16 Dose: 50 mg Ondansetron HCl (Zofran) 4 mg IVPUSH Q4H PRN PRN Reason: Nausea/Vomiting Pantoprazole Sodium (Protonix) 40 mg PO BIDAC [facility] Last Admin: 04/29/17 06:32 Dose: 40 mg Polyethylene Glycol (Miralax) 17 gm PO DAILY [facility] Last Admin: 04/29/17 08:37 Dose: 17 gm Polysaccharide Iron Complex (Ferrex 150) 150 mg PO DAILY [facility] Last Admin: 04/29/17 08:38 Dose: 150 mg Senna (Senna) 17.2 mg PO DAILY [facility] Last Admin: 04/29/17 08:38 Dose: 17.2 mg Sodium Chloride (Saline Flush) 10 ml FLUSH ASDIRECTED PRN PRN Reason: Keep Vein Open Last Admin: 04/23/17 07:50 Dose: 10 ml Tamsulosin HCl (Flomax) 0.4 mg PO DAILY [facility] Last Admin: 04/29/17 08:38 Dose: 0.4 mg Tramadol HCl (Ultram) 100 mg PO TID [facility] Last Admin: 04/29/17 08:37 Dose: 100 mg Discontinued Medications Acetaminophen (Tylenol) 975 mg PO NOW ONE Stop: 04/23/17 07:47 Last Admin: 04/23/17 08:10 Dose: Not Given Acetaminophen (Tylenol) 650 mg RECTAL NOW ONE Stop: 04/23/17 07:56 Last Admin: 04/23/17 08:35 Dose: 650 mg Acetaminophen (Tylenol) Confirm Administered Dose 650 mg .ROUTE .STK-MED ONE Stop: 04/23/17 08:02 Last Admin: 04/23/17 08:09 Dose: Not Given Acetaminophen (Tylenol) 650 mg PO NOW ONE Stop: 04/25/17 07:43 Last Admin: 04/25/17 08:57 Dose: 650 mg Albuterol (Proventil Neb Soln) 2.5 mg NEB Q4H PRN PRN Reason: Shortness of Breath Albuterol/Ipratropium (Duoneb 3.0-0.5 Mg/3 Ml) 3 ml NEB QID [facility] Diltiazem HCl (Cardizem Cd) 180 mg PO DAILY [facility] Diltiazem HCl (Diltiazem) 10 mg IVPUSH ONETIME ONE Stop: 04/25/17 08:05 Last Admin: 04/25/17 09:07 Dose: 10 mg Diltiazem HCl (Diltiazem) 20 mg IVPUSH Q4H PRN PRN Reason: tachycardia; HR >140 Last Admin: 04/25/17 13:58 Dose: 20 mg Furosemide (Lasix) 40 mg IVPUSH NOW ONE Stop: 04/25/17 07:42 Last Admin: 04/25/17 09:04 Dose: 40 mg Levofloxacin/Dextrose 750 mg/ (Premix) 150 mls @ 100 mls/hr IV ONETIME ONE Stop: 04/23/17 09:13 Last Admin: 04/23/17 08:30 Dose: 100 mls/hr Sodium Chloride (Normal Saline) 1,900 mls @ 1,000 mls/hr IV .BOLUS [facility] Last Admin: 04/23/17 07:55 Dose: 1,000 mls/hr Sodium Chloride (Normal Saline) Confirm Administered Dose 1,000 mls @ as directed .ROUTE .STK-MED ONE Stop: 04/23/17 09:42 Last Admin: 04/23/17 10:14 Dose: Not Given Sodium Chloride (Normal Saline) 1,500 mls @ 999 mls/hr IV ASDIRECTED [facility] Stop: 04/23/17 14:00 Last Admin: 04/23/17 14:03 Dose: 999 mls/hr Sodium Chloride (Normal Saline) 1,000 mls @ 100 mls/hr IV ASDIRECTED [facility] Last Admin: 04/25/17 03:26 Dose: 100 mls/hr Vancomycin HCl 1 gm/Vancomycin HCl 500 mg/ Sodium Chloride 500 mls @ 333.333 mls/hr IV Q24H [facility] Last Admin: 04/23/17 16:56 Dose: 333.333 mls/hr Vancomycin HCl 1 gm/ Sodium (Chloride) 250 mls @ 250 mls/hr IV Q12H [facility] Last Admin: 04/25/17 21:19 Dose: 250 mls/hr Magnesium Sulfate 2 gm/ Premix 50 mls @ 25 mls/hr IV ONETIME ONE Stop: 04/25/17 09:46 Last Admin: 04/25/17 10:30 Dose: 25 mls/hr Norepinephrine Bitartrate 4 mg (/ Dextrose/Water) 250 mls @ 7.5 mls/hr IV TITRATE [facility]; 2 MCG/MIN PRN Reason: Protocol Sodium Chloride (Normal Saline) 1,000 mls @ 50 mls/hr IV ASDIRECTED [facility] Piperacillin Sod/Tazobactam (Sod 4.5 gm/ Sodium Chloride) 100 mls @ 200 mls/hr IV ONETIME ONE Stop: 04/25/17 17:29 Last Admin: 04/25/17 16:49 Dose: 200 mls/hr Sodium Chloride (Normal Saline) 1,000 mls @ 75 mls/hr IV ASDIRECTED [facility] Stop: 04/26/17 01:45 Last Admin: 04/25/17 17:56 Dose: 75 mls/hr Vancomycin HCl 1 gm/Vancomycin HCl 250 mg/ Sodium Chloride 250 mls @ 250 mls/ hr IV Q12H [facility] Last Admin: 04/26/17 10:06 Dose: 250 mls/hr Magnesium Sulfate 2 gm/ Premix 50 mls @ 25 mls/hr IV ONETIME ONE Stop: 04/27/17 11:33 Last Admin: 04/27/17 10:09 Dose: 25 mls/hr Sodium Chloride (Normal Saline) 1,000 mls @ 50 mls/hr IV ASDIRECTED [facility] Stop: 04/28/17 05:00 Last Admin: 04/27/17 22:46 Dose: 50 mls/hr Magnesium Sulfate 2 gm/ Premix 50 mls @ 25 mls/hr IV ONETIME ONE Stop: 04/28/17 14:54 Last Admin: 04/28/17 13:11 Dose: 25 mls/hr Insulin Aspart (Novolog) 0 unit SUBCUT QIDACANDBED [facility] PRN Reason: Protocol Last Admin: 04/26/17 08:30 Dose: 4 units Insulin Aspart (Novolog) 0 unit SUBCUT QIDACANDBED [facility] PRN Reason: Protocol Insulin Detemir (Levemir) 8 unit SUBCUT ASDIRECTED [facility] Insulin Detemir (Levemir) 8 unit SUBCUT ONETIME ONE Stop: 04/28/17 18:01 Last Admin: 04/28/17 18:06 Dose: Not Given Iopamidol (Isovue-300 (61%)) 100 ml IVPUSH ONETIME ONE Stop: 04/25/17 08:55 Last Admin: 04/25/17 09:53 Dose: 100 ml Magnesium Oxide (Magnesium Oxide) 800 mg PO ONETIME ONE Stop: 04/26/17 13:02 Last Admin: 04/26/17 13:43 Dose: 800 mg Metformin HCl (Glucophage) 250 mg PO BIDMEALS [facility] Last Admin: 04/25/17 06:17 Dose: 250 mg Methylprednisolone Sodium Succinate (Solu-Medrol) 80 mg IV ONETIME ONE Stop: 04/25/17 07:43 Last Admin: 04/25/17 09:03 Dose: 80 mg Methylprednisolone Sodium Succinate (Solu-Medrol) 125 mg IVPUSH Q6H [facility] Last Admin: 04/28/17 09:21 Dose: 125 mg Metoprolol Succinate (Toprol Xl) 25 mg PO DAILY [facility] Last Admin: 04/25/17 08:53 Dose: 25 mg Ondansetron HCl (Zofran) Confirm Administered Dose 4 mg .ROUTE .STK-MED ONE Stop: 04/25/17 10:33 Last Admin: 04/25/17 11:31 Dose: 4 mg Prednisone (Prednisone) 20 mg PO DAILY [facility] Last Admin: 04/28/17 09:21 Dose: 20 mg Sodium Chloride (Saline Flush) 10 ml FLUSH ONETIME PRN PRN Reason: IV FLUSH Stop: 04/25/17 12:00 Last Admin: 04/25/17 09:53 Dose: 10 ml Vancomycin HCl (Pharmacy To Dose - Vancomycin) 0 dose .XX ASDIRECTED [facility] Vancomycin HCl (Vancomycin) Confirm Administered Dose 500 mg .ROUTE .[facility]-MED ONE Stop: 04/23/17 16:43 Last Admin: 04/23/17 16:53 Dose: Not Given Vancomycin HCl (Vancomycin) Confirm Administered Dose 1 gm .ROUTE .ST-MED ONE Stop: 04/23/17 16:43 Last Admin: 04/23/17 16:53 Dose: Not Given - Exam Quality Assessment: Supplemental Oxygen, DVT Prophylaxis General: Alert, Oriented, Cooperative, No Acute Distress HEENT: Pupils Equal, EOMI, Mucous Membr. Moist/[place] Neck: Supple Lungs: Normal Respiratory Effort, Decreased Breath Sounds Cardiovascular: Irregular Rhythm GI/Abdominal Exam: Normal Bowel Sounds, Soft, Non-Tender, Other (round, obese) (Male) Exam: Deferred Extremities: Other (generalized edema, improved from when I saw him last week) Peripheral Pulses: 1+: Dorsalis Pedis (L), Dorsalis Pedis (R) Neurological: No New Focal Deficit Psy/Mental Status: Alert, Normal Affect, Normal Mood - Problem List & Annotations (1) Sepsis SNOMED Code(s): 14611780 Code(s): A41.9 - SEPSIS, UNSPECIFIED ORGANISM Status: Resolved Priority: High Current Visit: Yes Qualifiers: Sepsis type: sepsis due to unspecified organism Qualified Code(s): A41.9 - Sepsis, unspecified organism (2) Hypotension SNOMED Code(s): 64872917 Code(s): I95.9 - HYPOTENSION, UNSPECIFIED Status: Resolved Priority: High Current Visit: Yes (3) Tachycardia SNOMED Code(s): 3897219 Code(s): R00.0 - TACHYCARDIA, UNSPECIFIED Status: Resolved Current Visit : No (4) Pneumonia SNOMED Code(s): 873831594 Code(s): J18.9 - PNEUMONIA, UNSPECIFIED ORGANISM Status: Acute Priority: High Current Visit: Yes Qualifiers: Pneumonia type: due to unspecified organism Laterality: right Lung location: middle lobe of lung Qualified Code(s): J18.1 - Lobar pneumonia, unspecified organism (5) Anemia SNOMED Code(s): 368273978 Code(s): D64.9 - ANEMIA, UNSPECIFIED Status: Chronic Priority: High Current Visit: Yes Qualifiers: Anemia type: unspecified type Qualified Code(s): D64.9 - Anemia, unspecified (6) Abdominal pain SNOMED Code(s): 07856410 Code(s): R10.9 - UNSPECIFIED ABDOMINAL PAIN Status: Resolved Priority: High Current Visit: Yes Qualifiers: Abdominal location: generalized Qualified Code(s): R10.84 - Generalized abdominal pain (7) Atrial fibrillation SNOMED Code(s): 43993488 Code(s): I48.91 - UNSPECIFIED ATRIAL FIBRILLATION Status: Chronic Priority: Medium Current Visit: Yes Qualifiers: Atrial fibrillation type: chronic Qualified Code(s): I48.2 - Chronic atrial fibrillation (8) CAD (coronary artery disease) SNOMED Code(s): 74191171 Code(s): I25.10 - ATHSCL HEART DISEASE OF [place] CORONARY ARTERY W/O ANG PCTRS Status: Chronic Priority: Medium Current Visit: Yes Qualifiers: Coronary Disease-Associated Artery/Lesion type: unspecified vessel or lesion type [place] vs. transplanted heart: [place] heart - Problem List Review Problem List Initiated/Reviewed/Updated: Yes - My Orders Last 24 Hours: My Active Orders 04/29/17 09:26 Admission Status [Patient Status] [ADT] Routine 04/29/17 12:08 Chest 2V [CR] Routine - Plan Plan:: Impression: Bilateral infiltrates, R>L PNA Levaquin and Zosyn IV--DC vanco Follow daily labs; WBC and CRP normalized Repeat CXR tomorrow Presumed acute CHF exacerbation--clinically---improved/resolved Last echo 12/11/16--EF of 55-65%, mild AV stenosis, mild biatrial dilation, mildto moderate MVR, mild to mod elevated RV pressure at 47.9- report reviewed Lasix 40mg IVP x 2 days initially during his stay Hold gabapentin as this can cause edema --resume home lasix dose today Hypomagnesemia-- resolved. Replete as needed and follow cont oral mag/IV as scheduled Follow with daily labs Anemia- etiology uncertain, likely some component of acute on chronic and partly dilutional but need to investigate further 11.4-->8.6--7.5---s/p 2 units PRBC was 10.6 and 9.5 today Iron studies, occult stool, B12, folate --- negative occult. A fib on Eliquis--rates now 80-90's -Cont with PO cardizem and metoprolol CAD/CP---ECG/TnI WNL -cholesterol= excellent - Cont statin. DM type 2 -worsening sugars since addition of solumedrol -Restart home metformin dose today---renal function WNL -Lantus BID -Accucheck QID, SSI coverage -A1C= 9.6 Resolved: Sepsis--Hypotension, tachycardia, febrile on admission ---VSS today LA elevated--5.9-->2.9; Recheck LA yesterday afternoon was WNL. Caution with fluid due to presumed acute heart failure exacerbation clinically Treat infection as below R/O cardiac etiology in addition to infection; Troponin, EKG and BNP this morning--all negative, BNP slight elevation Switch albuterol to xopenex Nebs for tachycardia reason Acute respiratory failure--improving Supplemental oxygen to keep saturations >90% RT/Nebs/IS/FV Tx PNA as below Chronic COPD/Hx of PNA Former Tobacco, 1969 HTN--stable HLD- check lipid panel, cont statin DM II--as above History of CAD/TN CVA Depression Other: downgrade to med/surg/tele unit today. Cheema cath for monitoring of I&O in critically ill patient -- Will DC today. GI/DVT prophylax- Teds and SCD's--no chemical due to hgb drop/anemia Home meds Daily Labs PT/OT consult SW/CSM consult---DC plan pending improvements, likely 1-2 more days; repeat CXR tomorrow am Patient is DNR/DNI status PCP is Dr. Turner with [facility] in [place] LOS>96 hours slow response to antibiotic therapy for PNA.
[2017-04-29] MEDS: Furosemide 40 MG Tab PO SCH (13:13)
--- NOTE | 2017-04-29 13:44 | CR ---
Chest: Portable view of the chest was obtained. Comparison: Previous chest x-ray of 04/25/17. Increasing haziness is noted to the right chest presumably due to increasing pleural effusion. Small left-sided pleural effusion is noted. Heart is enlarged. Upper mediastinum is slightly widened felt to be due to tortuous great vessels. Impression: 1. Increasing haziness within the right lung most likely due to increasing right sided pleural effusion. 2. Other portions of the chest are felt to be stable from previous exam. Diagnostic code #3
[2017-04-29] MEDS: metFORMIN 500 MG Tab PO SCH (17:22)
[2017-04-30] MEDS: Piperacillin/Tazobactam 4.5 GM in Sodium Chloride 0.9% 100 ML IV SCH ×2 (00:18→08:56)
[2017-04-30] MEDS: Pantoprazole 40 MG Tab.CR PO SCH (06:33)
[2017-04-30] MEDS: Diltiazem IR 60 MG Tab PO SCH ×2 (06:33→13:06)
[2017-04-30] MEDS: glipiZIDE 5 MG Tab.ER PO SCH (06:34)
[2017-04-30] MEDS: metFORMIN 500 MG Tab PO SCH (06:35)
[2017-04-30] MEDS: Insulin Aspart 100 Units/ML 3 ML Pen SUBCUT SCH ×2 (06:36→13:09)
[2017-04-30] MEDS: Albuterol/Ipratropium 3.0-0.5 MG/3 ML Neb Soln NEB SCH ×2 (06:56→09:54)
--- NOTE | 2017-04-30 08:49 | PCM.DCSUM1 ---
Discharge Summary - Hospital Course Free Text/Narrative:: 86 year old male, assisted living resident presents with fever, malaise, and increasing confusion. This has occurred over several dfays. He has had a documented fever, 102F. Admits to SOB, and CP with inspiration. CXR documents bilateral infiltrates, R>L. He has a lactic acid of 5. He appears ill, and is diaphoretic. He will ne admitted to the ICU and placed in respiratory isolation. Hospitalist service is consulted for admit to ICU as noted above---for bilat PNA. - Discharge Data Discharge Date: 04/30/17 (admit date 04/23/17) Discharge Disposition: DC/Tfer to SNF 03 Condition: Good - Discharge Diagnosis/Problem(s) (1) Sepsis SNOMED Code(s): 29090795 ICD Code: A41.9 - SEPSIS, UNSPECIFIED ORGANISM Status: Resolved Priority : High Current Visit: Yes Qualifiers: Sepsis type: sepsis due to unspecified organism Qualified Code(s): A41.9 - Sepsis, unspecified organism (2) Hypotension SNOMED Code(s): 14460158 ICD Code: I95.9 - HYPOTENSION, UNSPECIFIED Status: Resolved Priority: High Current Visit: Yes (3) Tachycardia SNOMED Code(s): 2385421 ICD Code: R00.0 - TACHYCARDIA, UNSPECIFIED Status: Resolved Current Visit : No (4) Pneumonia SNOMED Code(s): 106568875 ICD Code: J18.9 - PNEUMONIA, UNSPECIFIED ORGANISM Status: Acute Priority : High Current Visit: Yes Qualifiers: Pneumonia type: due to unspecified organism Laterality: right Lung location: middle lobe of lung Qualified Code(s): J18.1 - Lobar pneumonia, unspecified organism (5) Anemia SNOMED Code(s): 642067158 ICD Code: D64.9 - ANEMIA, UNSPECIFIED Status: Chronic Priority: High Current Visit: Yes Qualifiers: Anemia type: unspecified type Qualified Code(s): D64.9 - Anemia, unspecified (6) Abdominal pain SNOMED Code(s): 00416895 ICD Code: R10.9 - UNSPECIFIED ABDOMINAL PAIN Status: Resolved Priority: High Current Visit: Yes Qualifiers: Abdominal location: generalized Qualified Code(s): R10.84 - Generalized abdominal pain (7) Atrial fibrillation SNOMED Code(s): 94599165 ICD Code: I48.91 - UNSPECIFIED ATRIAL FIBRILLATION Status: Chronic Priority: Medium Current Visit: Yes Qualifiers: Atrial fibrillation type: chronic Qualified Code(s): I48.2 - Chronic atrial fibrillation (8) CAD (coronary artery disease) SNOMED Code(s): 00015405 ICD Code: I25.10 - ATHSCL HEART DISEASE OF [place] CORONARY ARTERY W/O ANG PCTRS Status: Chronic Priority: Medium Current Visit: Yes Qualifiers: Coronary Disease-Associated Artery/Lesion type: unspecified vessel or lesion type [place] vs. transplanted heart: [place] heart - Patient Summary/Data Operative Procedure(s) Performed: None Complications: None Consults: Consultations 04/26/17 06:56 OT Evaluation and Treatment [CONS] Routine PT Evaluation and Treatment [CONS] Routine Labs Pending at D/C: None Recommended Follow-up Testing/Procedures: Patient DC instructions: physical therapy and occupational therapy to treat and evaluate 02 to keep sat's greater than 90% Please follow up with Primary Doctor regarding t-dap immunization Follow up with Dr. Turner within one week of discharge. Blood sugars AC/HS with sliding scale insulin as instructed/per protocol. Planned Operative Procedure(s) after DC: None Hospital Course: Impression: Bilateral infiltrates, R>L PNA Levaquin and Zosyn IV--DC vanco Follow daily labs; WBC and CRP normalized Repeat CXR tomorrow Presumed acute CHF exacerbation--clinically---improved/resolved Last echo 12/11/16--EF of 55-65%, mild AV stenosis, mild biatrial dilation, mildto moderate MVR, mild to mod elevated RV pressure at 47.9- report reviewed Lasix 40mg IVP x 2 days initially during his stay Hold gabapentin as this can cause edema --resume home lasix dose today Hypomagnesemia-- resolved. Replete as needed and follow cont oral mag/IV as scheduled Follow with daily labs Anemia- etiology uncertain, likely some component of acute on chronic and partly dilutional but need to investigate further 11.4-->8.6--7.5---s/p 2 units PRBC was 10.6 and 9.5 today Iron studies, occult stool, B12, folate --- negative occult. A fib on Eliquis--rates now 80-90's -Cont with PO cardizem and metoprolol CAD/CP---ECG/TnI WNL -cholesterol= excellent - Cont statin. DM type 2 -worsening sugars since addition of solumedrol -Restart home metformin dose today---renal function WNL -Lantus BID -Accucheck QID, SSI coverage -A1C= 9.6 Resolved: Sepsis--Hypotension, tachycardia, febrile on admission ---VSS today LA elevated--5.9-->2.9; Recheck LA yesterday afternoon was WNL. 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 Biswas cath for monitoring of I&O in critically ill patient -- Will DC today. GI/DVT prophylax- Teds and SCD's--no chemical due to hgb drop/anemia Home meds Daily Labs PT/OT consult SW/CSM consult---DC plan pending improvements, likely 1-2 more days; repeat CXR tomorrow am Patient is DNR/DNI status PCP is Dr. Turner with [facility] in [place] LOS>96 hours slow response to antibiotic therapy for PNA. - Patient Instructions Diet: Heart Healthy Diet, Diabetic Diet Activity: As Tolerated Driving: Do Not Drive Showering/Bathing: May Shower Notify Provider of: Fever, Increased Pain, Nausea and/or Vomiting (worsening SOB or cough) - Discharge Plan Prescriptions/Med Rec: Metoprolol Tartrate [Lopressor] 50 mg PO Q12HR #60 tablet Bifidobacter. Bifidum/B.Longum [Florajen Bifidoblend] 460 mg PO DAILY #30 capsule Diltiazem IR [Cardizem] 60 mg PO Q8H #60 tablet Insulin Aspart [NovoLOG] 0 unit SUBCUT QIDACANDBED #1 pen Levofloxacin [Levaquin] 500 mg PO DAILY #7 tablet metFORMIN [Glucophage] 250 mg PO BIDMEALS #60 tablet Prednisone [IJD: Prednisone] 10 mg PO DAILY #30 tab Home Medications: Home Meds Albuterol Sulfate [Proair Respiclick] 2 puff INH TID 04/13/15 [History] Aspirin [Low Dose Aspirin EC] 81 mg PO DAILY 04/13/15 [History] DULoxetine [Cymbalta] 60 mg PO DAILY 04/13/15 [History] Docusate Sodium [Colace] 200 mg PO BID 04/13/15 [History] Ferrous Sulfate 324 mg PO DAILY 04/13/15 [History] glipiZIDE [Glucotrol XL] 5 mg PO ACBREAKFAST 04/13/15 [History] Propylene Glycol/Peg 400 [Systane 0.3-0.4% Eye Drops] 1 drop EYEBOTH BID [History] Tamsulosin [Flomax] 0.4 mg PO DAILY 09/08/15 [History] Acetaminophen 650 mg PO Q6H PRN 11/05/16 [History] metFORMIN [Glucophage] 250 mg PO BIDMEALS 11/05/16 [History] Apixaban [Eliquis] 5 mg PO BID 12/08/16 [History] Gabapentin [Neurontin] 300 mg PO BID 12/08/16 [History] Polyethylene Glycol 3350 [MiraLAX] 17 gm PO DAILY 12/08/16 [History] traMADol [Ultram] 100 mg PO TID 12/08/16 [History] Calcium Carbonate [Tums] 1 tab PO DAILY 12/09/16 [History] Magnesium Oxide 400 mg PO DAILY #30 tablet 12/12/16 [Rx] Omeprazole 20 mg PO BIDAC #60 cap.cr 12/12/16 [Rx] Donepezil HCl [Aricept] 10 mg PO DAILY 04/23/17 [History] Furosemide [Lasix] 40 mg PO DAILY 04/23/17 [History] Menthol [Biofreeze] 1 applic TOP ASDIRECTED PRN 04/23/17 [History] Menthol [Biofreeze] 1 applic TOP TID 04/23/17 [History] Nut Tx, Lact-Reduced, Iron [Boost VHC] 4 oz PO TID 04/23/17 [History] Orajel 1 applic BUCCAL BID 04/23/17 [History] Prednisone [IJD: predniSONE] 20 mg PO DAILY 04/23/17 [History] Propylene Glycol/PEG 400/Pf [Systane 0.3-0.4% Eye Drops] 1 drop EYEBOTH BID PRN 04/23/17 [History] Sennosides [Senna] 2 tab PO DAILY 04/23/17 [History] Vitamin E 400 unit PO DAILY 04/23/17 [History] Bifidobacter. Bifidum/B.Longum [Florajen Bifidoblend] 460 mg PO DAILY #30 capsule 04/30/17 [Rx] Diltiazem IR [Cardizem] 60 mg PO Q8H #60 tablet 04/30/17 [Rx] Insulin Aspart [NovoLOG] 0 unit SUBCUT QIDACANDBED #1 pen 04/30/17 [Rx] Levofloxacin [Levaquin] 500 mg PO DAILY #7 tablet 04/30/17 [Rx] Metoprolol Tartrate [Lopressor] 50 mg PO Q12HR #60 tablet 04/30/17 [Rx] Prednisone [IJD: Prednisone] 10 mg PO DAILY #30 tab 04/30/17 [Rx] metFORMIN [Glucophage] 250 mg PO BIDMEALS #60 tablet 04/30/17 [Rx] Patient Handouts: Sepsis, Adult, Community-Acquired Pneumonia, Adult, Easy-to- Read Forms: ED Department Discharge Referrals: Juma Turner MD [Primary Care Provider] - - Discharge Summary/Plan Comment DC Time >30 min.: Yes (45 min) - General Info Date of Service: 04/30/17 Admission Dx/Problem (Free Text: Admission Diagnosis/Problem Admission Diagnosis/Problem Sepsis "Brian" is seen this morning, he is resting comfortably in bed. Color is better , states feels "much better" today. Appetite is good. He is up to chair with lift (baseline for him at CT). VSS. HR stable, b/p stable. Labs stable. Started on solumedrol over the weekend with uptrending of glucose as expected with steroid--stabilizing with tapering of steroid. Plans to DC back to [facility] today. Functional Status: Reports: Pain Controlled, Tolerating Diet, Urinating. Denies : Ambulating (nonambulatory SALT WASHER) - Review of Systems General: Reports: No Symptoms HEENT: Reports: No Symptoms Pulmonary: Reports: Shortness of Breath (chronic--improved), Cough (improved) Cardiovascular: Reports: No Symptoms Gastrointestinal: Reports: No Symptoms. Denies: Diarrhea, Nausea, Vomiting Genitourinary: Reports: No Symptoms Neurological: Reports: No Symptoms Psychiatric: Reports: No Symptoms - Patient Data Vitals - Most Recent: Last Vital Signs Temp 98.1 F 04/30/17 03:40 Pulse 84 04/30/17 03:40 Resp 17 04/30/17 03:40 BP 106/71 04/30/17 03:40 Pulse Ox 91 L 04/30/17 06:56 Weight - Most Recent: 208 lb I&O - Last 24 hours: Intake & Output 04/29/17 04/30/17 04/30/17 22:59 06:59 14:59 Intake Total 520 520 Output Total 305 525 Balance 215 -5 Lab Results - Last 24 hrs: Laboratory Results - last 24 hr 04/29/17 04/29/17 04/29/17 Range/Units 11:25 13:20 17:20 WBC (4.23-9.07) K/mm3 RBC (4.63-6.08) M/mm3 Hgb (13.7-17.5) gm/L Hct (40.1-51.0) % MCV (79.0-92.2) fl MCH (25.7-32.2) pg MCHC (32.2-35.5) g/dl RDW Std Deviation (35.1-43.9) fL Plt Count (163-337) K/mm3 MPV (9.4-12.3) fl Neut % (Auto) (34.0-67.9) % Lymph % (Auto) (21.8-53.1) % [place] % (Auto) (5.3-12.2) % Eos % (Auto) (0.8-7.0) Baso % (Auto) (0.1-1.2) % Neut # (Auto) (1.78-5.38) K/mm3 Lymph # (Auto) (1.32-3.57) K/mm3 [place] # (Auto) (0.30-0.82) K/mm3 Eos # (Auto) (0.04-0.54) K/mm3 Baso # (Auto) (0.01-0.08) K/mm3 Manual Slide Review Sodium (136-145) mEq/L Potassium (3.5-5.1) mEq/L Chloride (98-107) mEq/L Carbon Dioxide (21-32) mEq/L Anion Gap (5-15) BUN (7-18) mg/dL Creatinine (0.7-1.3) mg/dL Est Cr Clr Drug Dosing mL/min Estimated GFR (MDRD) (>60) mL/min BUN/Creatinine Ratio (14-18) Glucose 378 H (83-115) mg/dL POC Glucose 370 H (83-110) mg/dL Calcium (8.5-10.1) mg/dL Magnesium (1.8-2.4) mg/dl C-Reactive Protein (<1.0) mg/dL Urine Color [place] H (Yellow) Urine Appearance Cloudy H (Clear) Urine pH 6.0 (5.0-8.0) Ur Specific [place] 1.025 (1.005-1.030) Urine Protein 1+ H (Negative) Urine Glucose (UA) 2+ H (Negative) Urine Ketones Trace H (Negative) Urine Occult Blood 3+ H (Negative) Urine Nitrite Negative (Negative) Urine Bilirubin Negative (Negative) Urine Urobilinogen 2.0 H (0.2-1.0) Ur Leukocyte Esterase Negative (Negative) Urine RBC 40-50 H (0-5) /hpf Urine WBC 0-5 (0-5) /hpf Ur Epithelial Cells Not seen (0-5) /hpf Urine Bacteria Few (FEW) /hpf Urine Mucus Few (FEW) /hpf 04/29/17 04/30/17 04/30/17 Range/Units 21:59 05:57 05:57 WBC 4.14 L (4.23-9.07) K/mm3 RBC 3.03 L (4.63-6.08) M/mm3 Hgb 10.2 L (13.7-17.5) gm/L Hct 30.4 L (40.1-51.0) % MCV 100.3 H (79.0-92.2) fl MCH 33.7 H (25.7-32.2) pg MCHC 33.6 (32.2-35.5) g/dl RDW Std Deviation 78.4 H (35.1-43.9) fL Plt Count 107 L (163-337) K/mm3 MPV 11.2 (9.4-12.3) fl Neut % (Auto) 87.2 H (34.0-67.9) % Lymph % (Auto) 6.5 L (21.8-53.1) % [place] % (Auto) 5.6 (5.3-12.2) % Eos % (Auto) 0 L (0.8-7.0) Baso % (Auto) 0.0 L (0.1-1.2) % Neut # (Auto) 3.61 (1.78-5.38) K/mm3 Lymph # (Auto) 0.27 L (1.32-3.57) K/mm3 [place] # (Auto) 0.23 L (0.30-0.82) K/mm3 Eos # (Auto) 0.00 L (0.04-0.54) K/mm3 Baso # (Auto) 0.00 L (0.01-0.08) K/mm3 Manual Slide Review Abnormal smear Sodium 134 L (136-145) mEq/L Potassium 4.4 (3.5-5.1) mEq/L Chloride 100 (98-107) mEq/L Carbon Dioxide 28 (21-32) mEq/L Anion Gap 10.4 (5-15) BUN 22 H (7-18) mg/dL Creatinine 0.9 (0.7-1.3) mg/dL Est Cr Clr Drug Dosing 52.20 mL/min Estimated GFR (MDRD) > 60 (>60) mL/min BUN/Creatinine Ratio 24.4 H (14-18) Glucose 269 H (83-115) mg/dL POC Glucose 323 H (83-110) mg/dL Calcium 7.9 L (8.5-10.1) mg/dL Magnesium 1.8 (1.8-2.4) mg/dl C-Reactive Protein < 0.2 (<1.0) mg/dL Urine Color (Yellow) Urine Appearance (Clear) Urine pH (5.0-8.0) Ur Specific [place] (1.005-1.030) Urine Protein (Negative) Urine Glucose (UA) (Negative) Urine Ketones (Negative) Urine Occult Blood (Negative) Urine Nitrite (Negative) Urine Bilirubin (Negative) Urine Urobilinogen (0.2-1.0) Ur Leukocyte Esterase (Negative) Urine RBC (0-5) /hpf Urine WBC (0-5) /hpf Ur Epithelial Cells (0-5) /hpf Urine Bacteria (FEW) /hpf Urine Mucus (FEW) /hpf 04/30/17 Range/Units 06:31 WBC (4.23-9.07) K/mm3 RBC (4.63-6.08) M/mm3 Hgb (13.7-17.5) gm/L Hct (40.1-51.0) % MCV (79.0-92.2) fl MCH (25.7-32.2) pg MCHC (32.2-35.5) g/dl RDW Std Deviation (35.1-43.9) fL Plt Count (163-337) K/mm3 MPV (9.4-12.3) fl Neut % (Auto) (34.0-67.9) % Lymph % (Auto) (21.8-53.1) % [place] % (Auto) (5.3-12.2) % Eos % (Auto) (0.8-7.0) Baso % (Auto) (0.1-1.2) % Neut # (Auto) (1.78-5.38) K/mm3 Lymph # (Auto) (1.32-3.57) K/mm3 [place] # (Auto) (0.30-0.82) K/mm3 Eos # (Auto) (0.04-0.54) K/mm3 Baso # (Auto) (0.01-0.08) K/mm3 Manual Slide Review Sodium (136-145) mEq/L Potassium (3.5-5.1) mEq/L Chloride (98-107) mEq/L Carbon Dioxide (21-32) mEq/L Anion Gap (5-15) BUN (7-18) mg/dL Creatinine (0.7-1.3) mg/dL Est Cr Clr Drug Dosing mL/min Estimated GFR (MDRD) (>60) mL/min BUN/Creatinine Ratio (14-18) Glucose (83-115) mg/dL POC Glucose 287 H (83-110) mg/dL Calcium (8.5-10.1) mg/dL Magnesium (1.8-2.4) mg/dl C-Reactive Protein (<1.0) mg/dL Urine Color (Yellow) Urine Appearance (Clear) Urine pH (5.0-8.0) Ur Specific [place] (1.005-1.030) Urine Protein (Negative) Urine Glucose (UA) (Negative) Urine Ketones (Negative) Urine Occult Blood (Negative) Urine Nitrite (Negative) Urine Bilirubin (Negative) Urine Urobilinogen (0.2-1.0) Ur Leukocyte Esterase (Negative) Urine RBC (0-5) /hpf Urine WBC (0-5) /hpf Ur Epithelial Cells (0-5) /hpf Urine Bacteria (FEW) /hpf Urine Mucus (FEW) /hpf Med Orders - Current: Current Medications Acetaminophen (Tylenol) 650 mg PO Q6H PRN PRN Reason: Fever Albuterol/Ipratropium (Duoneb 3.0-0.5 Mg/3 Ml) 3 ml NEB QIDRT [facility] Last Admin: 04/30/17 06:56 Dose: 3 ml Apixaban (Eliquis) 5 mg PO BID [facility] Last Admin: 04/29/17 22:02 Dose: 5 mg Aspirin (Halfprin) 81 mg PO DAILY [facility] Last Admin: 04/29/17 08:38 Dose: 81 mg Dextrose/Water (Dextrose 50% In Water) 50 ml IVPUSH ASDIRECTED PRN PRN Reason: Hypoglycemia Diltiazem HCl (Cardizem) 60 mg PO Q8H [facility] Last Admin: 04/30/17 06:33 Dose: 60 mg Docusate Sodium (Colace) 200 mg PO BID [facility] Last Admin: 04/29/17 22:02 Dose: 200 mg Donepezil HCl (Aricept) 10 mg PO DAILY [facility] Last Admin: 04/29/17 08:37 Dose: 10 mg Duloxetine HCl (Cymbalta) 60 mg PO DAILY [facility] Last Admin: 04/29/17 08:38 Dose: 60 mg Ferrous Sulfate (Ferrous Sulfate) 325 mg PO DAILY [facility] Furosemide (Lasix) 40 mg PO DAILY [facility] Last Admin: 04/29/17 13:13 Dose: 40 mg Gabapentin (Neurontin) 300 mg PO BID [facility] Last Admin: 04/29/17 22:02 Dose: 300 mg Glipizide (Glucotrol Xl) 5 mg PO ACBREAKFAST [facility] Last Admin: 04/30/17 06:34 Dose: 5 mg Levofloxacin/Dextrose 750 mg/ (Premix) 150 mls @ 100 mls/hr IV Q24H [facility] Stop: 04/30/17 11:01 Last Admin: 04/29/17 11:18 Dose: 100 mls/hr Piperacillin Sod/Tazobactam (Sod 4.5 gm/ Sodium Chloride) 100 mls @ 25 mls/hr IV Q8H [facility] Last Admin: 04/30/17 00:18 Dose: 25 mls/hr Insulin Aspart (Novolog) 0 unit SUBCUT QIDACANDBED [facility] PRN Reason: Protocol Last Admin: 04/30/17 06:36 Dose: 9 units Insulin Detemir (Levemir) 0 unit SUBCUT BID [facility] Last Admin: 04/29/17 22:30 Dose: Not Given Levalbuterol HCl (Xopenex) 1.25 mg NEB Q2H PRN PRN Reason: sob/wheezing Magnesium Oxide (Magnesium Oxide) 400 mg PO DAILY [facility] Last Admin: 04/29/17 08:38 Dose: 400 mg Metformin HCl (Glucophage) 250 mg PO BIDMEALS [facility] Last Admin: 04/30/17 06:35 Dose: 250 mg Methylprednisolone Sodium Succinate (Solu-Medrol) 80 mg IVPUSH Q12H [facility] Last Admin: 04/29/17 22:02 Dose: 80 mg Metoprolol Succinate (Toprol Xl) 25 mg PO DAILY [facility] Last Admin: 04/28/17 09:41 Dose: Not Given Metoprolol Tartrate (Lopressor) 5 mg IVPUSH Q4H PRN PRN Reason: heart rate Metoprolol Tartrate (Lopressor) 50 mg PO Q12HR [facility] Last Admin: 04/29/17 22:31 Dose: Not Given Ondansetron HCl (Zofran) 4 mg IVPUSH Q4H PRN PRN Reason: Nausea/Vomiting Pantoprazole Sodium (Protonix) 40 mg PO BIDAC [facility] Last Admin: 04/30/17 06:33 Dose: 40 mg Polyethylene Glycol (Miralax) 17 gm PO DAILY [facility] Last Admin: 04/29/17 08:37 Dose: 17 gm Polysaccharide Iron Complex (Ferrex 150) 150 mg PO DAILY [facility] Last Admin: 04/29/17 08:38 Dose: 150 mg Senna (Senna) 17.2 mg PO DAILY [facility] Last Admin: 04/29/17 08:38 Dose: 17.2 mg Sodium Chloride (Saline Flush) 10 ml FLUSH ASDIRECTED PRN PRN Reason: Keep Vein Open Last Admin: 04/23/17 07:50 Dose: 10 ml Tamsulosin HCl (Flomax) 0.4 mg PO BIDPC [facility] Last Admin: 04/29/17 17:22 Dose: 0.4 mg Tramadol HCl (Ultram) 100 mg PO TID [facility] Last Admin: 04/29/17 21:30 Dose: 100 mg Discontinued Medications Acetaminophen (Tylenol) 975 mg PO NOW ONE Stop: 04/23/17 07:47 Last Admin: 04/23/17 08:10 Dose: Not Given Acetaminophen (Tylenol) 650 mg RECTAL NOW ONE Stop: 04/23/17 07:56 Last Admin: 04/23/17 08:35 Dose: 650 mg Acetaminophen (Tylenol) Confirm Administered Dose 650 mg .ROUTE .STK-MED ONE Stop: 04/23/17 08:02 Last Admin: 04/23/17 08:09 Dose: Not Given Acetaminophen (Tylenol) 650 mg PO NOW ONE Stop: 04/25/17 07:43 Last Admin: 04/25/17 08:57 Dose: 650 mg Albuterol (Proventil Neb Soln) 2.5 mg NEB Q4H PRN PRN Reason: Shortness of Breath Albuterol/Ipratropium (Duoneb 3.0-0.5 Mg/3 Ml) 3 ml NEB QID [facility] Diltiazem HCl (Cardizem Cd) 180 mg PO DAILY [facility] Diltiazem HCl (Diltiazem) 10 mg IVPUSH ONETIME ONE Stop: 04/25/17 08:05 Last Admin: 04/25/17 09:07 Dose: 10 mg Diltiazem HCl (Diltiazem) 20 mg IVPUSH Q4H PRN PRN Reason: tachycardia; HR >140 Last Admin: 04/25/17 13:58 Dose: 20 mg Furosemide (Lasix) 40 mg IVPUSH NOW ONE Stop: 04/25/17 07:42 Last Admin: 04/25/17 09:04 Dose: 40 mg Levofloxacin/Dextrose 750 mg/ (Premix) 150 mls @ 100 mls/hr IV ONETIME ONE Stop: 04/23/17 09:13 Last Admin: 04/23/17 08:30 Dose: 100 mls/hr Sodium Chloride (Normal Saline) 1,900 mls @ 1,000 mls/hr IV .BOLUS MALA Last Admin: 04/23/17 07:55 Dose: 1,000 mls/hr Sodium Chloride (Normal Saline) Confirm Administered Dose 1,000 mls @ as directed .ROUTE .STK-MED ONE Stop: 04/23/17 09:42 Last Admin: 04/23/17 10:14 Dose: Not Given Sodium Chloride (Normal Saline) 1,500 mls @ 999 mls/hr IV ASDIRECTED [facility] Stop: 04/23/17 14:00 Last Admin: 04/23/17 14:03 Dose: 999 mls/hr Sodium Chloride (Normal Saline) 1,000 mls @ 100 mls/hr IV ASDIRECTED [facility] Last Admin: 04/25/17 03:26 Dose: 100 mls/hr Vancomycin HCl 1 gm/Vancomycin HCl 500 mg/ Sodium Chloride 500 mls @ 333.333 mls/hr IV Q24H [facility] Last Admin: 04/23/17 16:56 Dose: 333.333 mls/hr Vancomycin HCl 1 gm/ Sodium (Chloride) 250 mls @ 250 mls/hr IV Q12H [facility] Last Admin: 04/25/17 21:19 Dose: 250 mls/hr Magnesium Sulfate 2 gm/ Premix 50 mls @ 25 mls/hr IV ONETIME ONE Stop: 04/25/17 09:46 Last Admin: 04/25/17 10:30 Dose: 25 mls/hr Norepinephrine Bitartrate 4 mg (/ Dextrose/Water) 250 mls @ 7.5 mls/hr IV TITRATE MALA; 2 MCG/MIN PRN Reason: Protocol Sodium Chloride (Normal Saline) 1,000 mls @ 50 mls/hr IV ASDIRECTED [facility] Piperacillin Sod/Tazobactam (Sod 4.5 gm/ Sodium Chloride) 100 mls @ 200 mls/hr IV ONETIME ONE Stop: 04/25/17 17:29 Last Admin: 04/25/17 16:49 Dose: 200 mls/hr Sodium Chloride (Normal Saline) 1,000 mls @ 75 mls/hr IV ASDIRECTED [facility] Stop: 04/26/17 01:45 Last Admin: 04/25/17 17:56 Dose: 75 mls/hr Vancomycin HCl 1 gm/Vancomycin HCl 250 mg/ Sodium Chloride 250 mls @ 250 mls/ hr IV Q12H [facility] Last Admin: 04/26/17 10:06 Dose: 250 mls/hr Magnesium Sulfate 2 gm/ Premix 50 mls @ 25 mls/hr IV ONETIME ONE Stop: 04/27/17 11:33 Last Admin: 04/27/17 10:09 Dose: 25 mls/hr Sodium Chloride (Normal Saline) 1,000 mls @ 50 mls/hr IV ASDIRECTED [facility] Stop: 04/28/17 05:00 Last Admin: 04/27/17 22:46 Dose: 50 mls/hr Magnesium Sulfate 2 gm/ Premix 50 mls @ 25 mls/hr IV ONETIME ONE Stop: 04/28/17 14:54 Last Admin: 04/28/17 13:11 Dose: 25 mls/hr Insulin Aspart (Novolog) 0 unit SUBCUT QIDACANDBED [facility] PRN Reason: Protocol Last Admin: 04/26/17 08:30 Dose: 4 units Insulin Aspart (Novolog) 0 unit SUBCUT QIDACANDBED [facility] PRN Reason: Protocol Insulin Detemir (Levemir) [facility] Detemir (Levemir) 8 unit SUBCUT ONETIME ONE Stop: 04/28/17 18:01 Last Admin: 04/28/17 18:06 Dose: Not Given Iopamidol (Isovue-300 (61%)) 100 ml IVPUSH ONETIME ONE Stop: 04/25/17 08:55 Last Admin: 04/25/17 09:53 Dose: 100 ml Magnesium Oxide (Magnesium Oxide) 800 mg PO ONETIME ONE Stop: 04/26/17 13:02 Last Admin: 04/26/17 13:43 Dose: 800 mg Metformin HCl (Glucophage) 250 mg PO [facility] Last Admin: 04/25/17 06:17 Dose: 250 mg Methylprednisolone Sodium Succinate (Solu-Medrol) 80 mg IV ONETIME ONE Stop: 04/25/17 07:43 Last Admin: 04/25/17 09:03 Dose: 80 mg Methylprednisolone Sodium Succinate (Solu-Medrol) 125 mg IVPUSH Q6H [facility] Last Admin: 04/28/17 09:21 Dose: 125 mg Metoprolol Succinate (Toprol Xl) 25 mg PO DAILY [facility] Last Admin: 04/25/17 08:53 Dose: 25 mg Ondansetron HCl (Zofran) Confirm Administered Dose 4 mg .ROUTE .STK-MED ONE Stop: 04/25/17 10:33 Last Admin: 04/25/17 11:31 Dose: 4 mg Prednisone (Prednisone) 20 mg PO DAILY [facility] Last Admin: 04/28/17 09:21 Dose: 20 mg Sodium Chloride (Saline Flush) 10 ml FLUSH ONETIME PRN PRN Reason: IV FLUSH Stop: 04/25/17 12:00 Last Admin: 04/25/17 09:53 Dose: 10 ml Tamsulosin HCl (Flomax) 0.4 mg PO DAILY [facility] Last Admin: 04/29/17 08:38 Dose: 0.4 mg Vancomycin HCl (Pharmacy To Dose - Vancomycin) 0 dose .XX ASDIRECTED [facility] Vancomycin HCl (Vancomycin) Confirm Administered Dose 500 mg .ROUTE .STK-MED ONE Stop: 04/23/17 16:43 Last Admin: 04/23/17 16:53 Dose: Not Given Vancomycin HCl (Vancomycin) Confirm Administered Dose 1 gm .ROUTE .[place]-MED ONE Stop: 04/23/17 16:43 Last Admin: 04/23/17 16:53 Dose: Not Given - Exam Quality Assessment: Reports: Supplemental Oxygen, DVT Prophylaxis General: Reports: Alert, Oriented, Cooperative, No Acute Distress HEENT: Reports: Pupils Equal, EOMI, Mucous Membr. Moist/[place] Neck: Reports: Supple Lungs: Reports: Normal Respiratory Effort, Decreased Breath Sounds, Rales ( bilat bases, fine, improved today) Cardiovascular: Reports: Irregular Rhythm GI/Abdominal Exam: Normal Bowel Sounds, Soft, Non-Tender (Male) Exam: Deferred Rectal (Males) Exam: Deferred Extremities: Other (right arm with 1+ edema--improved from last week, lt arm and LE are with no edema) Neurological: Reports: No New Focal Deficit Psy/Mental Status: Reports: Alert, Normal Affect, Normal Mood *Q Meaningful Use (DIS) - VTE *Q VTE Criteria *Q: - Stroke *Q Stroke Criteria *Q: - AMI *Q AMI Criteria *Q:
[2017-04-30] MEDS: Polyethylene Glycol 3350 Powder 17 GM Packet PO SCH (08:56)
[2017-04-30] MEDS: Apixaban 5 MG Tab PO SCH (08:57)
[2017-04-30] MEDS: methylPREDNISolone Sodium Succinate 40 MG/1 ML SDV IVPUSH SCH (08:57)
[2017-04-30] MEDS: Tamsulosin 0.4 MG Cap.ER PO SCH (08:58)
[2017-04-30] MEDS: DULoxetine 30 MG Cap PO SCH (08:58)
[2017-04-30] MEDS: Furosemide 40 MG Tab PO SCH (08:58)
[2017-04-30] MEDS: Magnesium Oxide 400 MG Tab PO SCH (08:58)
[2017-04-30] MEDS: Gabapentin 300 MG Cap PO SCH (08:58)
[2017-04-30] MEDS: Sennosides 8.6 MG Tab PO SCH (08:58)
[2017-04-30] MEDS: Docusate Sodium 100 MG Cap PO SCH (08:59)
[2017-04-30] MEDS: Aspirin 81 MG Tab.EC PO SCH (08:59)
[2017-04-30] MEDS: traMADol 50 MG Tab PO SCH (09:00)
[2017-04-30] MEDS: Donepezil 10 MG Tab PO SCH (09:00)
[2017-04-30] MEDS: Iron Polysaccharides Complex 150 MG Cap PO SCH (09:00)
[2017-04-30] MEDS ORDERED: Ferrous Sulfate 325 MG Tab PO SCH (09:00)
[2017-04-30] MEDS: Metoprolol Tartrate 50 MG Tab PO SCH (09:01)
[2017-04-30] MEDS: Insulin Detemir 100 Units/ML 3 ML Pen SUBCUT SCH (09:01)
[2017-04-30 09:06] VITALS: BP 98/75
[2017-04-30] MEDS ORDERED: Diltiazem 125 MG in Sodium Chloride 0.9% 100 ML IV SCH (11:15)
[2017-04-30] MEDS: Levofloxacin/Dextrose 5%-Water 750 MG in Premix Bag 1 BAG IV SCH (12:50)
== END 2017-04-30 14:45 | DRG 871 ==
LOC: JD.ED 07:18 → SUPCPDRO 07:18 → JD.ICU 09:45 → JD.MS 09:45 → UNDOADMIN 09:45 → JD.ICU 11:05 → UNDOADMIN 11:05 → JD.ICU 11:07 → UNDOADMIN 04-29 09:06 → JD.ICU 04-29 09:06 → UNDODISIN 04-30 14:45
PROVIDERS: ADMIT Internal Medicine Cardiovascular Disease; ATTEND Internal Medicine Cardiovascular Disease
DX: A41.9 Sepsis, unspecified organism (principal); J18.9 Pneumonia, unspecified organism; I48.91 Unspecified atrial fibrillation; J96.00 Acute respiratory failure, unspecified whether with hypoxia or hypercapnia; I12.9 Hypertensive chronic kidney disease with stage 1 through stage 4 chronic kidney disease, or unspecified chronic kidney disease; E11.22 Type 2 diabetes mellitus with diabetic chronic kidney disease; N18.9 Chronic kidney disease, unspecified; I50.9 Heart failure, unspecified; I35.9 Nonrheumatic aortic valve disorder, unspecified; I48.2 Chronic atrial fibrillation; Z87.891 Personal history of nicotine dependence; J44.9 Chronic obstructive pulmonary disease, unspecified; D50.9 Iron deficiency anemia, unspecified; I25.10 Atherosclerotic heart disease of native coronary artery without angina pectoris; I10 Essential (primary) hypertension; E78.5 Hyperlipidemia, unspecified; E11.9 Type 2 diabetes mellitus without complications; I25.2 Old myocardial infarction; Z86.73 Personal history of transient ischemic attack (TIA), and cerebral infarction without residual deficits; F32.9 Major depressive disorder, single episode, unspecified; D64.9 Anemia, unspecified; R10.84 Generalized abdominal pain; E83.42 Hypomagnesemia; R10.13 Epigastric pain; Z66 Do not resuscitate; N40.0 Benign prostatic hyperplasia without lower urinary tract symptoms; K21.9 Gastro-esophageal reflux disease without esophagitis; H54.7 Unspecified visual loss; Z79.01 Long term (current) use of anticoagulants; Z79.84 Long term (current) use of oral hypoglycemic drugs; Z79.82 Long term (current) use of aspirin; Z79.899 Other long term (current) drug therapy
CPT/HCPCS: 36415; 71045; 80053; 81001; 82962; 83605; 85025; 86140; 87040 ×2; 87804 ×2; 87899; 96361; 96365; 96366; 99285; A9270; J1956; J7040; J7050; 36430; 51702; 71046; 71046-26; 74177; 74177-26; 80048; 80061; 80202; 82270; 82607; 82746; 82947; 83036; 83540; 83735; 83880; 84443; 84466; 84484; 85014; 85018; 85610; 85730; 86738; 86850; 86900; 86901; 86922; 87486; 87581; 87633; 87641; 87798; 93005; 94640; 94667; 94762; 97110-GO; 97110-GP; 97140-GP; 97162-GP; 97165-GO; 97530-GO; 97530-GP; J1815-GY; J1940; J2405; J2543; J2920; J2930; J3370; J3475; J3490; J7030; P9016; Q9967

== ENCOUNTER 2017-05-01 09:43 | Emergency (ER) | payer MEDICARE, BC ==
[2017-05-01] MEDS ORDERED: Sodium Chloride 0.9% 10 ML Syringe FLUSH PRN (10:21)
--- NOTE | 2017-05-01 12:21 | CR ---
Chest: Frontal view of the chest was obtained. Comparison: Prior chest x-ray of 04/29/17. Increased density within the right lung base is seen. Lungs otherwise are clear. Heart size is slightly enlarged. Upper mediastinum is within normal limits. Impression: 1. Slight increased density within the right lung base. This is most likely due to atelectasis and less likely due to pneumonia. 2. Heart size slightly enlarged. 3. Nothing acute is otherwise seen. Diagnostic code #3
[2017-05-01] MEDS ORDERED: HYDROmorphone 0.5 MG/0.5 ML Syringe IVPUSH ONE (14:10)
[2017-05-01] MEDS ORDERED: Acetaminophen 325 MG Tab PO ONE (14:10)
[2017-05-01] MEDS ORDERED: Albuterol/Ipratropium 3.0-0.5 MG/3 ML Neb Soln NEB ONE ×2 (14:20→14:22)
--- NOTE | 2017-05-01 14:20 | EDM.PDOC ---
ED HPI GENERAL MEDICAL PROBLEM - General Chief Complaint: Chest Pain Stated Complaint: [facility] Time Seen by Provider: 05/01/17 09:57 Source of Information: Reports: Patient, RN Notes Reviewed - History of Present Illness INITIAL COMMENTS - FREE TEXT/NARRATIVE: 86-year-old male has been brought here by ambulance from [facility] for evaluation of chest pain, shortness of breath, generalized weakness. He was just discharged back to the [facility] yesterday following what looks like a 7 day admission for pneumonia. He continues to have occasional cough. He states he feels short of breath today. Apparently his sats did drop down to 86% at the [facility] and I believe that is what triggered transfer here to the ED at that time. Chest Pain Score (Numeric/FACES): 8 - Related Data Allergies Allergy/AdvReac Type Severity Reaction Status Date / Time No Known Allergies Allergy Verified 05/01/17 10:03 Home Meds: Home Meds Albuterol Sulfate [Proair Respiclick] 2 puff INH TID 04/13/15 [History] Aspirin [Low Dose Aspirin EC] 81 mg PO DAILY 04/13/15 [History] DULoxetine [Cymbalta] 60 mg PO DAILY 04/13/15 [History] Docusate Sodium [Colace] 200 mg PO BID 04/13/15 [History] Ferrous Sulfate 324 mg PO DAILY 04/13/15 [History] glipiZIDE [Glucotrol XL] 5 mg PO ACBREAKFAST 04/13/15 [History] Propylene Glycol/Peg 400 [Systane 0.3-0.4% Eye Drops] 1 drop EYEBOTH BID [History] Tamsulosin [Flomax] 0.4 mg PO DAILY 09/08/15 [History] Acetaminophen 650 mg PO Q6H PRN 11/05/16 [History] metFORMIN [Glucophage] 250 mg PO BIDMEALS 11/05/16 [History] Apixaban [Eliquis] 5 mg PO BID 12/08/16 [History] Gabapentin [Neurontin] 300 mg PO BID 12/08/16 [History] Polyethylene Glycol 3350 [MiraLAX] 17 gm PO DAILY 12/08/16 [History] traMADol [Ultram] 100 mg PO TID 12/08/16 [History] Calcium Carbonate [Tums] 1 tab PO DAILY 12/09/16 [History] Magnesium Oxide 400 mg PO DAILY #30 tablet 12/12/16 [Rx] Omeprazole 20 mg PO BIDAC #60 cap.cr 12/12/16 [Rx] Donepezil HCl [Aricept] 10 mg PO DAILY 04/23/17 [History] Furosemide [Lasix] 40 mg PO DAILY 04/23/17 [History] Menthol [Biofreeze] 1 applic TOP ASDIRECTED PRN 04/23/17 [History] Menthol [Biofreeze] 1 applic TOP TID 04/23/17 [History] Nut Tx, Lact-Reduced, Iron [Boost VHC] 4 oz PO TID 04/23/17 [History] Orajel 1 applic BUCCAL BID 04/23/17 [History] Prednisone [IJD: predniSONE] 20 mg PO DAILY 04/23/17 [History] Propylene Glycol/PEG 400/Pf [Systane 0.3-0.4% Eye Drops] 1 drop EYEBOTH BID PRN 04/23/17 [History] Sennosides [Senna] 2 tab PO DAILY 04/23/17 [History] Vitamin E 400 unit PO DAILY 04/23/17 [History] Bifidobacter. Bifidum/B.Longum [Florajen Bifidoblend] 460 mg PO DAILY #30 capsule 04/30/17 [Rx] Diltiazem IR [Cardizem] 60 mg PO Q8H #60 tablet 04/30/17 [Rx] Insulin Aspart [NovoLOG] 0 unit SUBCUT QIDACANDBED #1 pen 04/30/17 [Rx] Levofloxacin [Levaquin] 500 mg PO DAILY #7 tablet 04/30/17 [Rx] Metoprolol Tartrate [Lopressor] 50 mg PO Q12HR #60 tablet 04/30/17 [Rx] Prednisone [IJD: Prednisone] 10 mg PO DAILY #30 tab 04/30/17 [Rx] metFORMIN [Glucophage] 250 mg PO BIDMEALS #60 tablet 04/30/17 [Rx] Past Medical History HEENT History: Reports: Cataract, Impaired Vision Cardiovascular History: Reports: Afib, Angina, Arrhythmia, Hypertension, CT, Other (See Below) Other Cardiovascular History: Nonrheumatic aortic valve disorder, atherosclerotic heart disease Respiratory History: Reports: Asthma, Bronchitis, Recurrent, COPD, Pneumonia, Recurrent Gastrointestinal History: Reports: GERD, Hemorrhoids Genitourinary History: Reports: BPH, Renal Calculus, Renal Disease Musculoskeletal History: Reports: Arthritis, Back Pain, Chronic, Fracture, Osteoarthritis Neurological History: Reports: CVA Psychiatric History: Reports: Depression Endocrine/Metabolic History: Reports: Diabetes, Type II Hematologic History: Reports: Anemia, Iron Deficiency Oncologic (Cancer) History: Reports: None - Infectious Disease History Infectious Disease History: Reports: Chicken Pox - Past Surgical History Head Surgeries/Procedures: Reports: None HEENT Surgical History: Reports: Cataract Surgery GI Surgical History: Reports: Appendectomy, Cholecystectomy, Colonoscopy Musculoskeletal Surgical History: Reports: Other (See Below) Other Musculoskeletal Surgeries/Procedures:: femur fx surgery Social & Family History - Family History Family Medical History: Noncontributory Cardiac: Reports: CT Other Cardiac Family History: twin brother Hematologic: Reports: Anemia Oncologic: Reports: Hodgkin's Lymphoma, Leukemia, Lung - Tobacco Use Smoking Status *Q: Never Smoker Years of Tobacco use: 50 Packs/Tins Daily: 1 Used Tobacco, but Quit: Yes Month Tobacco Last Used: 1969 Second Hand Smoke Exposure: No - Caffeine Use Caffeine Use: Reports: Coffee Other Caffeine Use: diet soda - Alcohol Use Days Per Week of Alcohol Use: 0 - Recreational Drug Use Recreational Drug Use: No - Living Situation & Occupation Living situation: Reports: Alone, Assisted Living ED ROS GENERAL - Review of Systems Review Of Systems: See Below Constitutional: Denies: Fever, Chills, Diaphoresis HEENT: Denies: Sinus Problem, Throat Pain Respiratory: Reports: Shortness of Breath (chronically), Cough (occasional, improving) Cardiovascular: Reports: Chest Pain (anterior chest feels mildly tight) GI/Abdominal: Denies: Abdominal Pain, Nausea, Vomiting Musculoskeletal: Reports: Joint Pain (chronic multiple joint discomfort with motion). Denies: Leg Pain Skin: Reports: No Symptoms Neurological: Reports: Dizziness (mild), Weakness (generalized). Denies: Numbness, Tingling ED EXAM, GENERAL - Physical Exam Exam: See Below General Appearance: Alert, No Apparent Distress Eye Exam: Bilateral Eye: PERRL Throat/Mouth: Normal Inspection, Normal Oropharynx Head: Atraumatic Neck: Supple Respiratory/Chest: No Respiratory Distress, Respiratory Distress (mild tachypnea ), Rhonchi (R base, mild) Cardiovascular: Regular Rate, Rhythm GI/Abdominal: Soft, Non-Tender. No: Guarding Back Exam: No: CVA Tenderness (L), CVA Tenderness (R), Paraspinal Tenderness, Vertebral Tenderness Neurological: Alert, No Motor/Sensory Deficits Skin Exam: Warm, Dry, Normal Color EKG INTERPRETATION EKG Date: 05/01/17 Rhythm: A-Fib Rate (Beats/Min): 90 [place]: Normal QRS: RBBB Course - Vital Signs Last Recorded V/S: Last Vital Signs Temp 98.1 F 05/01/17 09:50 Pulse 92 05/01/17 15:45 Resp 20 05/01/17 15:45 BP 92/65 05/01/17 15:45 Pulse Ox 88 L 05/01/17 15:45 - Orders/Labs/Meds Labs: Laboratory Tests 05/01/17 05/01/17 Range/Units 10:00 10:00 WBC 8.04 (4.23-9.07) K/mm3 RBC 3.31 L (4.63-6.08) M/mm3 Hgb 11.2 L (13.7-17.5) gm/L Hct 32.6 L (40.1-51.0) % MCV 98.5 H (79.0-92.2) fl MCH 33.8 H (25.7-32.2) pg MCHC 34.4 (32.2-35.5) g/dl RDW Std Deviation 75.8 H (35.1-43.9) fL Plt Count 111 L (163-337) K/mm3 MPV 10.5 (9.4-12.3) fl Neut % (Auto) 76.6 H (34.0-67.9) % Lymph % (Auto) 14.1 L (21.8-53.1) % [place] % (Auto) 7.7 (5.3-12.2) % Eos % (Auto) 0.5 L (0.8-7.0) Baso % (Auto) 0.2 (0.1-1.2) % Neut # (Auto) 6.16 H (1.78-5.38) K/mm3 Lymph # (Auto) 1.13 L (1.32-3.57) K/mm3 [place] # (Auto) 0.62 (0.30-0.82) K/mm3 Eos # (Auto) 0.04 (0.04-0.54) K/mm3 Baso # (Auto) 0.02 (0.01-0.08) K/mm3 Sodium 134 L (136-145) mEq/L Potassium 4.1 (3.5-5.1) mEq/L Chloride 99 (98-107) mEq/L Carbon Dioxide 30 (21-32) mEq/L Anion Gap 9.1 (5-15) BUN 22 H (7-18) mg/dL Creatinine 1.1 (0.7-1.3) mg/dL Est Cr Clr Drug Dosing 42.71 mL/min Estimated GFR (MDRD) > 60 (>60) mL/min BUN/Creatinine Ratio 20.0 H (14-18) Glucose 237 H (83-115) mg/dL Calcium 8.3 L (8.5-10.1) mg/dL Total Bilirubin 1.2 H (0.2-1.0) mg/dL AST 22 (15-37) U/L ALT 32 (16-63) U/L Alkaline Phosphatase 56 (46-116) U/L Troponin I < 0.017 (0.00-0.056) ng/mL NT-Pro-B Natriuret Pep 1664 H (0-450) pg/mL Total Protein 4.9 L (6.4-8.2) g/dl Albumin 2.7 L (3.4-5.0) g/dl Globulin 2.2 gm/dL Albumin/Globulin Ratio 1.2 (1-2) Meds: Medications Discontinued Medications Generic Name Dose Route Start Last Admin Trade Name Myronq PRN Reason Stop Dose Admin Acetaminophen 975 mg 05/01/17 14:10 05/01/17 14:36 Tylenol PO 05/01/17 14:11 975 mg NOW ONE Administration Albuterol/Ipratropium 3 ml 05/01/17 14:20 05/01/17 14:25 Duoneb 3.0-0.5 Mg/3 Ml NEB 05/01/17 14:21 3 ml ONETIME ONE Administration Albuterol/Ipratropium 3 ml 05/01/17 14:22 05/01/17 14:25 Duoneb 3.0-0.5 Mg/3 Ml NEB 05/01/17 14:23 Not Given ONETIME ONE Hydromorphone HCl 0.25 mg 05/01/17 14:10 05/01/17 14:34 Dilaudid IVPUSH 05/01/17 14:11 0.25 mg ONETIME ONE Administration Lorazepam 0.25 mg 05/01/17 14:31 05/01/17 14:43 Ativan PO 05/01/17 14:32 0.25 mg ONETIME ONE Administration Sodium Chloride 10 ml 05/01/17 10:21 05/01/17 11:04 Saline Flush FLUSH 10 ml ASDIRECTED PRN Administration Keep Vein Open - Re-Assessments/Exams Free Text/Narrative Re-Assessment/Exam: 05/02/17 17:35 He still did have infiltrate R base but improved from 2 days ago prior to discharge. He is afebrile, normal WBC, on oral abx. No acute need to be in the hospital at this time. Discussed with his daughter and manager of community relations at [facility] who both agree. Discharge instr. as documented. Departure - Departure Time of Disposition: 14:20 Disposition: DC/Tfer to [facility] Reason for Transfer *Q: Other Condition: Fair Clinical Impression: Atypical chest pain Dyspnea Qualifiers: Dyspnea type: shortness of breath Qualified Code(s): R06.02 - Shortness of breath Instructions: Nonspecific Chest Pain, [id number] Referrals: PCP,Unknown [Primary Care Provider] - Forms: ED Department Discharge Additional Instructions: Continue present care, O2 2 L nasal cannula for sats less than 90%. Albuterol neb treatments for O2 sats less than 90% or difficulty breathing, Ativan 0.25 mg twice daily for 1 week. Further orders or treatment from Dr. North as needed.
[2017-05-01] MEDS ORDERED: LORazepam 0.5 MG Tab PO ONE (14:31)
[2017-05-01 17:02] VITALS: BP 92/65
== END 2017-05-01 16:30 ==
LOC: JD.ED 09:43
DX: R07.89 Other chest pain (principal); R06.02 Shortness of breath; I10 Essential (primary) hypertension; E11.9 Type 2 diabetes mellitus without complications; Z79.82 Long term (current) use of aspirin; Z79.899 Other long term (current) drug therapy; Z79.4 Long term (current) use of insulin
CPT/HCPCS: 36415; 71045; 80053; 83880; 84484; 85025; 87081; 87430; 87804; 93005; 94640; 96374; 99285; A9270; J1170; J7050; 93010; 99284-25

== ENCOUNTER 2017-06-23 18:35 | Inpatient (IN) | payer MEDICARE, BC ==
[2017-06-23] MEDS ORDERED: Sodium Chloride 0.9% 10 ML Syringe FLUSH PRN ×2 (18:41→21:42)
--- NOTE | 2017-06-23 18:44 | EDM.PDOC ---
ED HPI GENERAL MEDICAL PROBLEM - General Chief Complaint: Respiratory Problem Stated Complaint: [facility] Time Seen by Provider: 06/23/17 18:44 Source of Information: Reports: Patient, Residential Records History Limitations: Reports: No Limitations - History of Present Illness INITIAL COMMENTS - FREE TEXT/NARRATIVE: 86-year-old male presents via [facility] from [facility] for evaluation treatment of lethargy and confusion. Reportedly it patient had a temperature of 100.5 at the correction. Patient denies any vomiting or diarrhea. He states that he "always "has chest pain and abdominal pain. Patient is not normally on oxygen. O2 sats on room air 91 upon arrival. Reportedly symptoms started today. Reviewed the patient's record shows that he was recently hospitalized in April for pneumonia. Patient is a diabetic. Blood sugar prior to arrival was 124. Patient's daughters report that he has had heme positive stool. This was checked is his blood pressure has been running low. They're waiting to determine plan of care regarding heme positive stool. Patient is on eliquis 5 mg twice a day. - Related Data Allergies Allergy/AdvReac Type Severity Reaction Status Date / Time No Known Allergies Allergy Verified 06/23/17 18:37 Home Meds: Home Meds Albuterol Sulfate [Proair Respiclick] 2 puff INH TID 04/13/15 [History] DULoxetine [Cymbalta] 60 mg PO DAILY 04/13/15 [History] Docusate Sodium [Colace] 200 mg PO BID 04/13/15 [History] Ferrous Sulfate 324 mg PO DAILY 04/13/15 [History] Propylene Glycol/Peg 400 [Systane 0.3-0.4% Eye Drops] 1 drop EYEBOTH BID [History] Tamsulosin [Flomax] 0.4 mg PO DAILY 09/08/15 [History] Acetaminophen 650 mg PO Q6H PRN 11/05/16 [History] Apixaban [Eliquis] 5 mg PO BID 12/08/16 [History] Gabapentin [Neurontin] 300 mg PO BID 12/08/16 [History] Polyethylene Glycol 3350 [MiraLAX] 17 gm PO DAILY 12/08/16 [History] traMADol [Ultram] 100 mg PO TID 12/08/16 [History] Calcium Carbonate [Tums] 1 tab PO DAILY 12/09/16 [History] Magnesium Oxide 400 mg PO DAILY #30 tablet 12/12/16 [Rx] Omeprazole 20 mg PO BIDAC #60 cap.cr 12/12/16 [Rx] Donepezil HCl [Aricept] 10 mg PO DAILY 04/23/17 [History] Furosemide [Lasix] 40 mg PO DAILY 04/23/17 [History] Menthol [Biofreeze] 1 applic TOP ASDIRECTED PRN 04/23/17 [History] Menthol [Biofreeze] 1 applic TOP TID 04/23/17 [History] Orajel 1 applic BUCCAL BID 04/23/17 [History] Propylene Glycol/PEG 400/Pf [Systane 0.3-0.4% Eye Drops] 1 drop EYEBOTH BID PRN 04/23/17 [History] Sennosides [Senna] 2 tab PO DAILY 04/23/17 [History] Vitamin E 400 unit PO DAILY 04/23/17 [History] Diltiazem IR [Cardizem] 60 mg PO Q8H #60 tablet 04/30/17 [Rx] Metoprolol Tartrate [Lopressor] 50 mg PO Q12HR #60 tablet 04/30/17 [Rx] metFORMIN [Glucophage] 250 mg PO BIDMEALS #60 tablet 04/30/17 [Rx] Albuterol Sulfate 1 dose INH Q8H 06/23/17 [History] Insulin Aspart [NovoLOG] 1 unit SQ TIDMEALS 06/23/17 [History] Insulin Aspart [NovoLOG] 10 unit SUBCUT BID 06/23/17 [History] Insulin Glargine,Hum.Rec.Anlog [Lantus Solostar] 22 unit SQ DAILY 06/23/17 [ History] Lactobacillus Acidophilus/Fos [Acidophilus Probiotic Tablet] 1 cap PO DAILY 08/07 [History] Prednisone [IJD: Prednisone] 5 mg PO DAILY 06/23/17 [History] risperiDONE [RisperiDAL] 0.125 mg PO DAILY 06/23/17 [History] Past Medical History HEENT History: Reports: Cataract, Impaired Vision Cardiovascular History: Reports: Afib, Angina, Arrhythmia, Hypertension, CT, Other (See Below) Other Cardiovascular History: Nonrheumatic aortic valve disorder, atherosclerotic heart disease Respiratory History: Reports: Asthma, Bronchitis, Recurrent, COPD, Pneumonia, Recurrent Gastrointestinal History: Reports: GERD, Hemorrhoids Genitourinary History: Reports: BPH, Renal Calculus, Renal Disease Musculoskeletal History: Reports: Arthritis, Back Pain, Chronic, Fracture, Osteoarthritis Neurological History: Reports: CVA Psychiatric History: Reports: Depression Endocrine/Metabolic History: Reports: Diabetes, Type II Hematologic History: Reports: Anemia, Iron Deficiency Oncologic (Cancer) History: Reports: None - Infectious Disease History Infectious Disease History: Reports: Chicken Pox - Past Surgical History Head Surgeries/Procedures: Reports: None HEENT Surgical History: Reports: Cataract Surgery GI Surgical History: Reports: Appendectomy, Cholecystectomy, Colonoscopy Musculoskeletal Surgical History: Reports: Other (See Below) Other Musculoskeletal Surgeries/Procedures:: femur fx surgery Social & Family History - Family History Family Medical History: Noncontributory Cardiac: Reports: CT Other Cardiac Family History: twin brother Hematologic: Reports: Anemia Oncologic: Reports: Hodgkin's Lymphoma, Leukemia, Lung - Tobacco Use Smoking Status *Q: Never Smoker Years of Tobacco use: 50 Packs/Tins Daily: 1 Used Tobacco, but Quit: Yes Month Tobacco Last Used: 1969 Second Hand Smoke Exposure: No - Caffeine Use Caffeine Use: Reports: Coffee Other Caffeine Use: diet soda - Alcohol Use Days Per Week of Alcohol Use: 0 - Recreational Drug Use Recreational Drug Use: No - Living Situation & Occupation Living situation: Reports: Alone, Assisted Living ED ROS GENERAL - Review of Systems Review Of Systems: See Below Constitutional: Reports: Fever, Weakness Respiratory: Reports: Cough GI/Abdominal: Denies: Diarrhea, Vomiting Neurological: Reports: Confusion ED EXAM, GENERAL - Physical Exam Exam: See Below Exam Limited By: No Limitations General Appearance: Alert, WD/WN, Mild Distress, Obese Ears: Normal External Exam Nose: Normal Inspection Throat/Mouth: Normal Inspection, Normal Lips, Normal Voice, No Airway Compromise Respiratory/Chest: No Respiratory Distress, Decreased Breath Sounds Cardiovascular: Tachycardia, Irregularly Irregular GI/Abdominal: Soft, Non-Tender, Distended Extremities: Pedal Edema (2+) Neurological: Alert, Confused Psychiatric: Normal Affect, Normal Mood Skin Exam: Warm, Diaphoretic, Pallor EKG INTERPRETATION EKG Date: 06/23/17 Time: 19:05 Rhythm: A-Fib Rate (Beats/Min): 95 (78 - 140 bpm) [place]: Normal P-Wave: Present QRS: Normal ST-T: Normal QT: Normal EKG Interpretation Comments: a.fib with a rate of 78 to 140 bpm. T wave inversion V1-V3. RBBB. no change from April. Reviewed by myself and Dr. Fitzgerald. Course - Vital Signs Last Recorded V/S: Last Vital Signs Temp 37.7 C 06/23/17 21:09 Pulse 104 H 06/23/17 18:38 Resp BP 96/75 06/23/17 18:38 Pulse Ox 91 L 06/23/17 18:38 - Orders/Labs/Meds Orders: Active Orders 24 hr Category Date Time Status Blood Glucose Check, Bedside [RC] ONETIME Care 06/23/17 20:56 Active Cardiac Monitoring [RC] . DIRECTED Care 06/23/17 18:43 Active EKG 12 Lead [EKG Documentation Completion] [RC] STAT Care 06/23/17 18:54 Active Oxygen Therapy [RC] ASDIRECTED Care 06/23/17 20:59 Active Peripheral IV Care [RC] . DIRECTED Care 06/23/17 18:42 Active Chest 1V Frontal [CR] Stat Exams 06/23/17 18:41 Taken Chest Abdomen Pelvis w Cont [CT] Stat Exams 06/23/17 20:59 Taken CULTURE BLOOD [BC] Stat Lab 06/23/17 18:55 Received CULTURE BLOOD [BC] Stat Lab 06/23/17 19:05 Received CULTURE URINE [RM] Stat Lab 06/23/17 19:47 Received RED BLOOD CELLS LP [BBK] Stat Lab 06/23/17 22:50 Ordered TYPE AND SCREEN [BBK] Stat Lab 06/23/17 22:50 Ordered Sodium Chloride 0.9% [Normal Saline] 1,000 ml Med 06/23/17 20:55 Active IV ONETIME Sodium Chloride 0.9% [Normal Saline] 1,000 ml Med 06/23/17 22:29 Active IV ONETIME Sodium Chloride 0.9% [Saline Flush] Med 06/23/17 18:41 Active 10 ml FLUSH ASDIRECTED PRN Sodium Chloride 0.9% [Saline Flush] Med 06/23/17 21:42 Active 10 ml FLUSH ONETIME PRN cefTRIAXone [Rocephin] 2 gm Med 06/23/17 22:14 Active Sodium Chloride 0.9% [Normal Saline] 100 ml IV ONETIME Blood Culture x2 Reflex Set [OM.PC] Stat Oth 06/23/17 18:41 Ordered Peripheral IV Insertion Adult [OM.PC] Routine Oth 06/23/17 18:41 Ordered Transfuse Red Blood Cells [COMM] Stat Oth 06/23/17 22:50 Ordered Medication Orders Sodium Chloride (Normal Saline) 1,000 mls @ 100 mls/hr IV ONETIME ONE Stop: 06/24/17 06:54 Last Admin: 06/23/17 21:05 Dose: 100 mls/hr Ceftriaxone Sodium 2 gm/ (Sodium Chloride) 100 mls @ 100 mls/hr IV ONETIME ONE Stop: 06/23/17 23:13 Last Admin: 06/23/17 22:35 Dose: 100 mls/hr Sodium Chloride (Normal Saline) 1,000 mls @ 999 mls/hr IV ONETIME ONE Stop: 06/23/17 23:24 Last Admin: 06/23/17 22:38 Dose: 999 mls/hr Sodium Chloride (Saline Flush) 10 ml FLUSH ASDIRECTED PRN PRN Reason: Keep Vein Open Last Admin: 06/23/17 18:59 Dose: 10 ml Sodium Chloride (Saline Flush) 10 ml FLUSH ONETIME PRN PRN Reason: IV FLUSH Last Admin: 06/23/17 21:58 Dose: 10 ml Labs: Laboratory Tests 06/23/17 06/23/17 06/23/17 Range/Units 19:05 19:05 19:05 WBC 7.69 (4.23-9.07) K/mm3 RBC 2.87 L (4.63-6.08) M/mm3 Hgb 9.7 L (13.7-17.5) gm/L Hct 30.6 L (40.1-51.0) % MCV 106.6 H (79.0-92.2) fl MCH 33.8 H (25.7-32.2) pg MCHC 31.7 L (32.2-35.5) g/dl RDW Std Deviation 93.0 H (35.1-43.9) fL Plt Count 181 (163-337) K/mm3 MPV 9.8 (9.4-12.3) fl Neutrophils % (Manual) 64 H (40-60) % Band Neutrophils % 4 (0-10) % Lymphocytes % (Manual) 30 (20-40) % Atypical Lymphs % 0 % Monocytes % (Manual) 0 L (2-10) % Eosinophils % (Manual) 2 (0.8-7.0) % Basophils % (Manual) 0 L (0.2-1.2) Platelet Estimate Adequate Plt Morphology Comment Normal Hypochromasia 2+ moderate Poikilocytosis 2+ moderate Anisocytosis 2+ moderate Macrocytosis 2+ moderate RBC Morph Comment Not Reportable Sodium 138 (136-145) mEq/L Potassium 4.0 (3.5-5.1) mEq/L Chloride 101 (98-107) mEq/L Carbon Dioxide 32 (21-32) mEq/L Anion Gap 9.0 (5-15) BUN 16 (7-18) mg/dL Creatinine 1.0 (0.7-1.3) mg/dL Est Cr Clr Drug Dosing 50.49 mL/min Estimated GFR (MDRD) > 60 (>60) mL/min BUN/Creatinine Ratio 16.0 (14-18) Glucose 71 L (83-115) mg/dL POC Glucose (83-110) mg/dL Lactic Acid 1.2 (0.4-2.0) mmol/L Calcium 8.5 (8.5-10.1) mg/dL Total Bilirubin 1.6 H (0.2-1.0) mg/dL AST 18 (15-37) U/L ALT 23 (16-63) U/L Alkaline Phosphatase 79 (46-116) U/L C-Reactive Protein 0.6 (<1.0) mg/dL NT-Pro-B Natriuret Pep (0-450) pg/mL Total Protein 5.8 L (6.4-8.2) g/dl Albumin 3.6 (3.4-5.0) g/dl Globulin 2.2 gm/dL Albumin/Globulin Ratio 1.6 (1-2) Urine Color (Yellow) Urine Appearance (Clear) Urine pH (5.0-8.0) Ur Specific [place] (1.005-1.030) Urine Protein (Negative) Urine Glucose (UA) (Negative) Urine Ketones (Negative) Urine Occult Blood (Negative) Urine Nitrite (Negative) Urine Bilirubin (Negative) Urine Urobilinogen (0.2-1.0) Ur Leukocyte Esterase (Negative) Urine RBC (0-5) /hpf Urine WBC (0-5) /hpf Ur Epithelial Cells (0-5) /hpf Urine Bacteria (FEW) /hpf Hyaline Casts (0-5) /lpf Urine Mucus (FEW) /hpf Mycoplasma pneumon IgM (NEGATIVE) 06/23/17 06/23/17 06/23/17 Range/Units 19:05 19:05 19:47 WBC (4.23-9.07) K/mm3 RBC (4.63-6.08) M/mm3 Hgb (13.7-17.5) gm/L Hct (40.1-51.0) % MCV (79.0-92.2) fl MCH (25.7-32.2) pg MCHC (32.2-35.5) g/dl RDW Std Deviation (35.1-43.9) fL Plt Count (163-337) K/mm3 MPV (9.4-12.3) fl Neutrophils % (Manual) (40-60) % Band Neutrophils % (0-10) % Lymphocytes % (Manual) (20-40) % Atypical Lymphs % % Monocytes % (Manual) (2-10) % Eosinophils % (Manual) (0.8-7.0) % Basophils % (Manual) (0.2-1.2) Platelet Estimate Plt Morphology Comment Hypochromasia Poikilocytosis Anisocytosis Macrocytosis RBC Morph Comment Sodium (136-145) mEq/L Potassium (3.5-5.1) mEq/L Chloride (98-107) mEq/L Carbon Dioxide (21-32) mEq/L Anion Gap (5-15) BUN (7-18) mg/dL Creatinine (0.7-1.3) mg/dL Est Cr Clr Drug Dosing mL/min Estimated GFR (MDRD) (>60) mL/min BUN/Creatinine Ratio (14-18) Glucose (83-115) mg/dL POC Glucose (83-110) mg/dL Lactic Acid (0.4-2.0) mmol/L Calcium (8.5-10.1) mg/dL Total Bilirubin (0.2-1.0) mg/dL AST (15-37) U/L ALT (16-63) U/L Alkaline Phosphatase (46-116) U/L C-Reactive Protein (<1.0) mg/dL NT-Pro-B Natriuret Pep 2292 H (0-450) pg/mL Total Protein (6.4-8.2) g/dl Albumin (3.4-5.0) g/dl Globulin gm/dL Albumin/Globulin Ratio (1-2) Urine Color Yellow (Yellow) Urine Appearance Clear (Clear) Urine pH 5.5 (5.0-8.0) Ur Specific [place] 1.025 (1.005-1.030) Urine Protein Negative (Negative) Urine Glucose (UA) Negative (Negative) Urine Ketones Negative (Negative) Urine Occult Blood Negative (Negative) Urine Nitrite Negative (Negative) Urine Bilirubin 1+ H (Negative) Urine Urobilinogen 2.0 H (0.2-1.0) Ur Leukocyte Esterase Negative (Negative) Urine RBC Not seen (0-5) /hpf Urine WBC 0-5 (0-5) /hpf Ur Epithelial Cells Not seen (0-5) /hpf Urine Bacteria Not seen (FEW) /hpf Hyaline Casts 0-5 (0-5) /lpf Urine Mucus Moderate H (FEW) /hpf Mycoplasma pneumon IgM Negative (NEGATIVE) 06/23/17 06/23/17 Range/Units 20:57 22:41 WBC (4.23-9.07) K/mm3 RBC (4.63-6.08) M/mm3 Hgb (13.7-17.5) gm/L Hct (40.1-51.0) % MCV (79.0-92.2) fl MCH (25.7-32.2) pg MCHC (32.2-35.5) g/dl RDW Std Deviation (35.1-43.9) fL Plt Count (163-337) K/mm3 MPV (9.4-12.3) fl Neutrophils % (Manual) (40-60) % Band Neutrophils % (0-10) % Lymphocytes % (Manual) (20-40) % Atypical Lymphs % % Monocytes % (Manual) (2-10) % Eosinophils % (Manual) (0.8-7.0) % Basophils % (Manual) (0.2-1.2) Platelet Estimate Plt Morphology Comment Hypochromasia Poikilocytosis Anisocytosis Macrocytosis RBC Morph Comment Sodium (136-145) mEq/L Potassium (3.5-5.1) mEq/L Chloride (98-107) mEq/L Carbon Dioxide (21-32) mEq/L Anion Gap (5-15) BUN (7-18) mg/dL Creatinine (0.7-1.3) mg/dL Est Cr Clr Drug Dosing mL/min Estimated GFR (MDRD) (>60) mL/min BUN/Creatinine Ratio (14-18) Glucose (83-115) mg/dL POC Glucose 72 L 95 (83-110) mg/dL Lactic Acid (0.4-2.0) mmol/L Calcium (8.5-10.1) mg/dL Total Bilirubin (0.2-1.0) mg/dL AST (15-37) U/L ALT (16-63) U/L Alkaline Phosphatase (46-116) U/L C-Reactive Protein (<1.0) mg/dL NT-Pro-B Natriuret Pep (0-450) pg/mL Total Protein (6.4-8.2) g/dl Albumin (3.4-5.0) g/dl Globulin gm/dL Albumin/Globulin Ratio (1-2) Urine Color (Yellow) Urine Appearance (Clear) Urine pH (5.0-8.0) Ur Specific [place] (1.005-1.030) Urine Protein (Negative) Urine Glucose (UA) (Negative) Urine Ketones (Negative) Urine Occult Blood (Negative) Urine Nitrite (Negative) Urine Bilirubin (Negative) Urine Urobilinogen (0.2-1.0) Ur Leukocyte Esterase (Negative) Urine RBC (0-5) /hpf Urine WBC (0-5) /hpf Ur Epithelial Cells (0-5) /hpf Urine Bacteria (FEW) /hpf Hyaline Casts (0-5) /lpf Urine Mucus (FEW) /hpf Mycoplasma pneumon IgM (NEGATIVE) Meds: Medications Generic Name Dose Route Start Last Admin Trade Name Freq PRN Reason Stop Dose Admin Sodium Chloride 1,000 mls @ 100 mls/hr 06/23/17 20:55 06/23/17 21:05 Normal Saline IV 06/24/17 06:54 100 mls/hr ONETIME ONE Administration Ceftriaxone Sodium 2 gm/ 100 mls @ 100 mls/hr 06/23/17 22:14 06/23/17 22:35 Sodium Chloride IV 06/23/17 23:13 100 mls/hr ONETIME ONE Administration Sodium Chloride 1,000 mls @ 999 mls/hr 06/23/17 22:29 06/23/17 22:38 Normal Saline IV 06/23/17 23:24 999 mls/hr ONETIME ONE Administration Sodium Chloride 10 ml 06/23/17 18:41 06/23/17 18:59 Saline Flush FLUSH 10 ml ASDIRECTED PRN Administration Keep Vein Open Sodium Chloride 10 ml 06/23/17 21:42 06/23/17 21:58 Saline Flush FLUSH 10 ml ONETIME PRN Administration IV FLUSH Discontinued Medications Generic Name Dose Route Start Last Admin Trade Name Freq PRN Reason Stop Dose Admin Acetaminophen 650 mg 06/23/17 20:56 06/23/17 21:09 Tylenol PO 06/23/17 20:57 650 mg NOW ONE Administration Dextrose/Water 25 ml 06/23/17 21:49 06/23/17 22:05 Dextrose 50% In Water IVPUSH 06/23/17 21:50 25 ml ASDIRECTED ONE Administration Sodium Chloride 250 mls @ 999 mls/hr 06/23/17 19:03 Normal Saline IV 06/23/17 19:18 ONETIME ONE Sodium Chloride 500 mls @ 999 mls/hr 06/23/17 19:04 06/23/17 19:13 Normal Saline IV 06/23/17 19:33 999 mls/hr ONETIME ONE Administration Sodium Chloride 500 mls @ 999 mls/hr 06/23/17 22:24 Normal Saline IV 06/23/17 22:54 ONETIME ONE Iopamidol 150 ml 06/23/17 21:42 06/23/17 21:58 Isovue-300 (61%) IVPUSH 06/23/17 21:43 125 ml ONETIME ONE Administration - Radiology Interpretation Free Text/Narrative:: Chest x-ray shows questionable fibrosis in the bilateral lower lungs. No definitive pneumonia appreciated. CT of the chest, abdomen and pelvis with IV contrast impression per Vrad: right basilar as well as lingular infiltrates consistent with pneumonia. Sigmoid diverticulosis but no evidence for diverticulitis. - Re-Assessments/Exams Free Text/Narrative Re-Assessment/Exam: 06/23/17 22:51 Influenza returned negative. Patient has received about 650 mils of fluid thus far. Blood pressure seems to run on the lower side and per his daughter's report he has been running low recently. History of heart failure thus decided against giving 30 mils per kilo fluid resistation for sepsis protocol. I ordered liter bolus to be given as his pressures are still in the low 100s to 90s systolic. Patient has received 2 g IV Rocephin for pneumonia. Blood Sugar after the of amp of D50 is 92. Case discussed with Dr. Martinez, hospice on-call. She asked we type and cross for 2 units. She agrees to accept the patient. Patient will be admitted [facility] with telemetry for pneumonia. The patient has received about 1100 mils of fluid thus far. I Asked Daylin to slow the fluids down to 100 mils an hour as we are now giving him 2 units of blood. Departure - Departure Time of Disposition: 22:50 Disposition: Admitted As Inpatient 67 Condition: Poor Clinical Impression: Anemia Pneumonia Qualifiers: Pneumonia type: due to unspecified organism Laterality: right Lung location: middle lobe of lung Qualified Code(s): J18.1 - Lobar pneumonia, unspecified organism - Discharge Information Referrals: Juma Turner MD [Primary Care Provider] - Forms: ED Department Discharge Additional Instructions: Patient to be admitted to [facility] with telemetry. Dr. Martinez excepting. Diagnosis pneumonia. - My Orders Last 24 Hours: My Active Orders 06/23/17 18:41 Chest 1V Frontal [CR] Stat Sodium Chloride 0.9% [Saline Flush] 10 ml FLUSH ASDIRECTED PRN Blood Culture x2 Reflex Set [OM.PC] Stat Peripheral IV Insertion Adult [OM.PC] Routine 06/23/17 18:42 Peripheral IV Care [RC] . DIRECTED 06/23/17 18:43 Cardiac Monitoring [RC] . DIRECTED 06/23/17 18:54 EKG 12 Lead [EKG Documentation Completion] [RC] STAT 06/23/17 18:55 CULTURE BLOOD [BC] Stat 06/23/17 19:05 CULTURE BLOOD [BC] Stat 06/23/17 19:47 CULTURE URINE [RM] Stat 06/23/17 20:55 Sodium Chloride 0.9% [Normal Saline] 1,000 ml IV ONETIME 06/23/17 20:56 Blood Glucose Check, Bedside [RC] ONETIME 06/23/17 20:59 Oxygen Therapy [RC] ASDIRECTED Chest Abdomen Pelvis w Cont [CT] Stat 06/23/17 21:42 Sodium Chloride 0.9% [Saline Flush] 10 ml FLUSH ONETIME PRN 06/23/17 22:14 cefTRIAXone [Rocephin] 2 gm Sodium Chloride 0.9% [Normal Saline] 100 ml IV ONETIME 06/23/17 22:29 Sodium Chloride 0.9% [Normal Saline] 1,000 ml IV ONETIME 06/23/17 22:50 RED BLOOD CELLS LP [BBK] Stat TYPE AND SCREEN [BBK] Stat Transfuse Red Blood Cells [COMM] Stat - Assessment/Plan Last 24 Hours: My Active Orders 06/23/17 18:41 Chest 1V Frontal [CR] Stat Sodium Chloride 0.9% [Saline Flush] 10 ml FLUSH ASDIRECTED PRN Blood Culture x2 Reflex Set [OM.PC] Stat Peripheral IV Insertion Adult [OM.PC] Routine 06/23/17 18:42 Peripheral IV Care [RC] . DIRECTED 06/23/17 18:43 Cardiac Monitoring [RC] . DIRECTED 06/23/17 18:54 EKG 12 Lead [EKG Documentation Completion] [RC] STAT 06/23/17 18:55 CULTURE BLOOD [BC] Stat 06/23/17 19:05 CULTURE BLOOD [BC] Stat 06/23/17 19:47 CULTURE URINE [RM] Stat 06/23/17 20:55 Sodium Chloride 0.9% [Normal Saline] 1,000 ml IV ONETIME 06/23/17 20:56 Blood Glucose Check, Bedside [RC] ONETIME 06/23/17 20:59 Oxygen Therapy [RC] ASDIRECTED Chest Abdomen Pelvis w Cont [CT] Stat 06/23/17 21:42 Sodium Chloride 0.9% [Saline Flush] 10 ml FLUSH ONETIME PRN 06/23/17 22:14 cefTRIAXone [Rocephin] 2 gm Sodium Chloride 0.9% [Normal Saline] 100 ml IV ONETIME 06/23/17 22:29 Sodium Chloride 0.9% [Normal Saline] 1,000 ml IV ONETIME 06/23/17 22:50 RED BLOOD CELLS LP [BBK] Stat TYPE AND SCREEN [BBK] Stat Transfuse Red Blood Cells [COMM] Stat
[2017-06-23] MEDS ORDERED: Sodium Chloride 0.9% 250 ML IV ONE (19:03)
[2017-06-23] MEDS ORDERED: Sodium Chloride 0.9% 500 ML IV ONE ×2 (19:04→22:24)
[2017-06-23] MEDS ORDERED: Sodium Chloride 0.9% 1,000 ML IV ONE ×2 (20:55→22:29)
[2017-06-23] MEDS ORDERED: Acetaminophen 325 MG Tab PO ONE (20:56)
[2017-06-23] MEDS ORDERED: Iopamidol 612 MG/ML 150 ML Bottle IVPUSH ONE (21:42)
[2017-06-23] MEDS ORDERED: 50% Dextrose in Water 50 ML Syringe IVPUSH ONE (21:49)
[2017-06-23] MEDS ORDERED: cefTRIAXone 2 GM in Sodium Chloride 0.9% 100 ML IV ONE (22:14)
[2017-06-24] MEDS ORDERED: Levofloxacin/Dextrose 5%-Water 750 MG in Premix Bag 1 BAG IV ONE (01:10)
[2017-06-24] MEDS ORDERED: Acetaminophen 325 MG Tab PO PRN ×3 (05:41→09:44)
[2017-06-24] MEDS ORDERED: Sodium Chloride 0.9% 1,000 ML IV SCH (06:00)
--- NOTE | 2017-06-24 08:42 | PCM.HP ---
H&P History of Present Illness - General Date of Service: 06/24/17 Admit Problem/Dx: Pneumonia Source of Information: Patient, Provider, RN, RN Notes Reviewed History Limitations: Reports: No Limitations - History of Present Illness Initial Comments - Free Text/Narative: Florencio Werner is a 86 yo male, well known to this service, who presents to our ed on 06/24/17 via Ambulance with lethargy and confusion. He reportedly had a temperature 100.5 at the [facility]. Denies any vomiting or diarrhea. States he always has chest and abdominal pain. He is not normally on oxygen. Oxygen saturations on room air upon ED arrival are 91%. Symptoms reported started today. He was recently hospitalized in April for pneumonia. He is a diabetic and his blood sugars on ED arrival was 124. Per the patient's daughter , he has had heme positive stools in the past. Recheck this as his blood pressure was running low. They're waiting to determine a plan of care for this. He does take Ahl[place] 5 mg twice a day. On ED arrival temperature 37.7. Pulse 104. Blood pressure 96/75. Pulse ox 91% . 12-lead EKG was obtained and shows A. fib at a rate of 7840 bpm. T-wave inversion is noted in V1 through V3. There is a right bundle branch block present. No change from April. This is reviewed by the ED provider. Labs are obtained: WBC is 7.69. Hemoglobin low at 9.7. Hematocrit low at 30.6. He is macrocytic. Puts on the low end of normal at 181,000. Neutrophils are slightly elevated at 64%. Therefore percent band neutrophils. Sodium was good at 138. Potassium 4.0. Chloride 101. From an accident 32. Anion gap 9.0. BUN 16. Creatinine 1.0. GFR greater than 60. Glucose is found to be low at 71. Lactic acid 1.2. Calcium 8.5. Total bilirubin high at 1.6. AST is 18, ALT is 23, alkaline phosphatase at 79. Protein is low at 5.8. Albumin 3.6. ProBNP is high at 2292. UA is negative however one plus bilirubin, 2+-year-old bilirubin and moderate mucous are noted. Mycoplasma pneumo is negative. He is given Tylenol, Rocephin 2 g, and normal saline. Chest x-ray is obtained and shows questionable fibrosis in the lower lungs. No definitive pneumonia. CT of the chest with IV contrast is obtained and interpreted by the [facility]rad as right basilar as well as lingular infiltrates consistent with pneumonia. When compared to prior study dated 04/25/17 the pleural effusions have resolved. CT of the abdomen and pelvis with contrast was obtained and interpreted by [facility] as sigmoid diverticulosis but no evidence for diverticulitis. Bibasilar lung infiltrates as well as lingular infiltrate suggestive of bibasilar pneumonia and lingula pneumonia. He carries a history of: A. fib, angina, arrhythmia, hypertension, NM, rheumatic aortic valve disorder, CAD, asthma, recurrent bronchitis, COPD, recurrent pneumonia, GERD, BPH, arthritis, chronic back pain, osteoarthritis, CVA, depression, type II DM, iron deficiency anemia. He is a former smoker. His subsequently admitted to the medical floor with telemetry. CODE STATUS is DNR. PCP is Dr. Turner at [facility]. - Related Data Allergies/Adverse Reactions: Allergies Allergy/AdvReac Type Severity Reaction Status Date / Time No Known Allergies Allergy Verified 06/24/17 02:38 Home Medications: Home Meds Albuterol Sulfate [Proair Respiclick] 2 puff INH TID 04/13/15 [History] DULoxetine [Cymbalta] 60 mg PO DAILY 04/13/15 [History] Docusate Sodium [Colace] 200 mg PO BID 04/13/15 [History] Ferrous Sulfate 324 mg PO DAILY 04/13/15 [History] Propylene Glycol/Peg 400 [Systane 0.3-0.4% Eye Drops] 1 drop EYEBOTH BID [History] Tamsulosin [Flomax] 0.4 mg PO DAILY 09/08/15 [History] Acetaminophen 650 mg PO Q6H PRN 11/05/16 [History] Apixaban [Eliquis] 5 mg PO BID 12/08/16 [History] Gabapentin [Neurontin] 300 mg PO BID 12/08/16 [History] Polyethylene Glycol 3350 [MiraLAX] 17 gm PO DAILY 12/08/16 [History] traMADol [Ultram] 100 mg PO TID 12/08/16 [History] Calcium Carbonate [Tums] 1 tab PO DAILY 12/09/16 [History] Magnesium Oxide 400 mg PO DAILY #30 tablet 12/12/16 [Rx] Omeprazole 20 mg PO BIDAC #60 cap.cr 12/12/16 [Rx] Donepezil HCl [Aricept] 10 mg PO DAILY 04/23/17 [History] Furosemide [Lasix] 40 mg PO DAILY 04/23/17 [History] Menthol [Biofreeze] 1 applic TOP ASDIRECTED PRN 04/23/17 [History] Menthol [Biofreeze] 1 applic TOP TID 04/23/17 [History] Orajel 1 applic BUCCAL BID 04/23/17 [History] Propylene Glycol/PEG 400/Pf [Systane 0.3-0.4% Eye Drops] 1 drop EYEBOTH BID PRN 04/23/17 [History] Sennosides [Senna] 2 tab PO DAILY 04/23/17 [History] Vitamin E 400 unit PO DAILY 04/23/17 [History] Diltiazem IR [Cardizem] 60 mg PO Q8H #60 tablet 04/30/17 [Rx] Metoprolol Tartrate [Lopressor] 50 mg PO Q12HR #60 tablet 04/30/17 [Rx] metFORMIN [Glucophage] 250 mg PO BIDMEALS #60 tablet 04/30/17 [Rx] Albuterol Sulfate 1 dose INH Q8H 06/23/17 [History] Insulin Aspart [NovoLOG] 1 unit SQ TIDMEALS 06/23/17 [History] Insulin Aspart [NovoLOG] 10 unit SUBCUT BID 06/23/17 [History] Insulin Glargine,Hum.Rec.Anlog [Lantus Solostar] 22 unit SQ DAILY 06/23/17 [ History] Lactobacillus Acidophilus/Fos [Acidophilus Probiotic Tablet] 1 cap PO DAILY 08/07 [History] Prednisone [IJD: Prednisone] 5 mg PO DAILY 06/23/17 [History] risperiDONE [RisperiDAL] 0.125 mg PO DAILY 06/23/17 [History] Insulin Aspart [Novolog Flexpen] 12 units SQ DAILY 06/24/17 [History] Past Medical History HEENT History: Reports: Cataract, Impaired Vision Cardiovascular History: Reports: Afib, Angina, Arrhythmia, Hypertension, NM, Other (See Below) Other Cardiovascular History: Nonrheumatic aortic valve disorder, atherosclerotic heart disease Respiratory History: Reports: Asthma, Bronchitis, Recurrent, COPD, Pneumonia, Recurrent Gastrointestinal History: Reports: GERD, Hemorrhoids Genitourinary History: Reports: BPH, Renal Calculus, Renal Disease Musculoskeletal History: Reports: Arthritis, Back Pain, Chronic, Fracture, Osteoarthritis Neurological History: Reports: CVA Psychiatric History: Reports: Depression Endocrine/Metabolic History: Reports: Diabetes, Type II, Obesity/BMI 30+ Hematologic History: Reports: Anemia, Iron Deficiency Oncologic (Cancer) History: Reports: None - Infectious Disease History Infectious Disease History: Reports: Chicken Pox - Past Surgical History Head Surgeries/Procedures: Reports: None HEENT Surgical History: Reports: Cataract Surgery GI Surgical History: Reports: Appendectomy, Cholecystectomy, Colonoscopy Endocrine Surgical History: Reports: None Neurological Surgical History: Reports: None Musculoskeletal Surgical History: Reports: Other (See Below) Other Musculoskeletal Surgeries/Procedures:: femur fx surgery Social & Family History - Family History Family Medical History: Noncontributory Cardiac: Reports: NM Other Cardiac Family History: twin brother Hematologic: Reports: Anemia Oncologic: Reports: Hodgkin's Lymphoma, Leukemia, Lung - Tobacco Use Smoking Status *Q: Unknown Ever Smoked Years of Tobacco use: 50 Packs/Tins Daily: 1 Used Tobacco, but Quit: Yes Month Tobacco Last Used: 1969 Second Hand Smoke Exposure: No - Caffeine Use Caffeine Use: Reports: Coffee Other Caffeine Use: diet soda - Alcohol Use Days Per Week of Alcohol Use: 0 - Recreational Drug Use Recreational Drug Use: No - Living Situation & Occupation Living situation: Reports: Alone, Assisted Living H&P Review of Systems - Review of Systems: Review Of Systems: See Below General: Reports: Fever, Weakness. Denies: Chills, Malaise, Fatigue, Decreased Appetite HEENT: Reports: No Symptoms. Denies: Headaches, Sore Throat, Visual Changes Pulmonary: Reports: Shortness of Breath, Wheezing, Cough. Denies: Sputum Cardiovascular: Reports: No Symptoms. Denies: Chest Pain, Palpitations, Lightheadedness Gastrointestinal: Reports: Constipation. Denies: Abdominal Pain, Diarrhea, Hematemesis, Hematochezia, Melena, Nausea, Vomiting Genitourinary: Reports: No Symptoms. Denies: Dysuria, Frequency, Burning, Pain Musculoskeletal: Reports: Other ("I hurt all over" ) Skin: Reports: No Symptoms Psychiatric: Reports: No Symptoms Neurological: Reports: No Symptoms Hematologic/Lymphatic: Reports: No Symptoms Immunologic: Reports: No Symptoms Exam - Exam Exam: See Below - Vital Signs Vital Signs: Last Vital Signs Temp 97.9 F 06/24/17 07:45 Pulse 118 H 06/24/17 07:45 Resp 18 06/24/17 07:45 BP 103/75 06/24/17 07:45 Pulse Ox 97 06/24/17 07:45 Weight: 206 lb 9.6 oz - Exam Quality Assessment: Supplemental Oxygen, DVT Prophylaxis General: Alert, Oriented, Cooperative. No: Mild Distress HEENT: PERRLA, Hearing Intact, Mucosa Moist & [place], Nares Patent, Normal Nasal Septum, Posterior Pharynx Clear, Conjunctiva Clear, EOMI, EACs Clear, TMs Clear Neck: Supple, Trachea Midline Lungs: Normal Respiratory Effort, Decreased Breath Sounds, Rhonchi, Wheezing Cardiovascular: Irregular Rhythm GI/Abdominal Exam: Normal Bowel Sounds, Soft, Non-Tender, No Organomegaly, No Distention, No Abnormal Bruit, No Mass, Pelvis Stable (Male) Exam: Deferred Rectal (Males) Exam: Deferred Back Exam: Normal Inspection, Decreased Range of Motion Extremities: Normal Inspection, Normal Range of Motion, Non-Tender, Normal Capillary Refill, Pedal Edema (1-2+) Peripheral Pulses: 0: Posterior Tibial (L), Posterior Tibial (R), Dorsalis Pedis (L), Dorsalis Pedis (R), 1+: Radial (L), Radial (R) Skin: Warm, Dry, Intact Neurological: Cranial Nerves Intact (Grossly) Neuro Extensive - Mental Status: Alert, Oriented x3, Normal Mood/Affect, Normal Cognition Psychiatric: Alert, Normal Affect, Normal Mood - Patient Data Lab Results Last 24 hrs: Laboratory Results - last 24 hr 06/23/17 06/24/17 06/24/17 Range/Units 23:45 05:30 05:30 WBC 5.81 (4.23-9.07) K/mm3 RBC 2.70 L (4.63-6.08) M/mm3 Hgb 9.3 L (13.7-17.5) gm/L Hct 29.2 L (40.1-51.0) % MCV 108.1 H (79.0-92.2) fl MCH 34.4 H (25.7-32.2) pg MCHC 31.8 L (32.2-35.5) g/dl RDW Std Deviation 94.0 H (35.1-43.9) fL Plt Count 156 L (163-337) K/mm3 MPV 11.1 (9.4-12.3) fl Puncture Site ABG pH (7.35-7.45) ABG pCO2 (35.0-45.0) mmHg ABG pO2 (80.0-100.0) mmHg ABG HCO3 (22.0-26.0) meq/L ABG O2 Saturation (96.0-97.0) % ABG Base Excess (-2-2.0) [place] Test A-a Gradient mmHg O2 Delivery Device Oxygen Flow Rate FiO2 (21.00-100.00) % Sodium 137 (136-145) mEq/L Potassium 4.1 (3.5-5.1) mEq/L Chloride 102 (98-107) mEq/L Carbon Dioxide 29 (21-32) mEq/L Anion Gap 10.1 (5-15) BUN 15 (7-18) mg/dL Creatinine 0.8 (0.7-1.3) mg/dL Est Cr Clr Drug Dosing 63.12 mL/min Estimated GFR (MDRD) > 60 (>60) mL/min BUN/Creatinine Ratio 18.8 H (14-18) Glucose 89 (83-115) mg/dL POC Glucose (83-110) mg/dL Lactic Acid (0.4-2.0) mmol/L Calcium 8.1 L (8.5-10.1) mg/dL Magnesium 1.8 (1.8-2.4) mg/dl C-Reactive Protein 1.2 H* (<1.0) mg/dL MRSA (PCR) Negative 06/24/17 06/24/17 06/24/17 Range/Units 05:30 06:22 08:29 WBC (4.23-9.07) K/mm3 RBC (4.63-6.08) M/mm3 Hgb (13.7-17.5) gm/L Hct (40.1-51.0) % MCV (79.0-92.2) fl MCH (25.7-32.2) pg MCHC (32.2-35.5) g/dl RDW Std Deviation (35.1-43.9) fL Plt Count (163-337) K/mm3 MPV (9.4-12.3) fl Puncture Site Lt radial ABG pH 7.40 (7.35-7.45) ABG pCO2 43.9 (35.0-45.0) mmHg ABG pO2 70.0 L (80.0-100.0) mmHg ABG HCO3 26.3 H (22.0-26.0) meq/L ABG O2 Saturation 94.0 L (96.0-97.0) % ABG Base Excess 1.8 (-2-2.0) [place] Test Positive A-a Gradient 29 mmHg O2 Delivery Device Nasal cannula Oxygen Flow Rate 1.0 FiO2 24.00 (21.00-100.00) % Sodium (136-145) mEq/L Potassium (3.5-5.1) mEq/L Chloride (98-107) mEq/L Carbon Dioxide (21-32) mEq/L Anion Gap (5-15) BUN (7-18) mg/dL Creatinine (0.7-1.3) mg/dL Est Cr Clr Drug Dosing mL/min Estimated GFR (MDRD) (>60) mL/min BUN/Creatinine Ratio (14-18) Glucose (83-115) mg/dL POC Glucose 86 (83-110) mg/dL Lactic Acid 1.2 (0.4-2.0) mmol/L Calcium (8.5-10.1) mg/dL Magnesium (1.8-2.4) mg/dl C-Reactive Protein (<1.0) mg/dL MRSA (PCR) Result Diagrams: 06/24/17 05:30 06/24/17 05:30 *Q Meaningful Use (ADM) - VTE *Q VTE Criteria *Q: - Stroke *Q Stroke Criteria *Q: - AMI *Q AMI Criteria *Q: - Problem List (1) Fever SNOMED Code(s): 689271031 ICD Code: R50.9 - FEVER, UNSPECIFIED Status: Acute Priority: High Current Visit: Yes Qualifiers: Fever type: unspecified Qualified Code(s): R50.9 - Fever, unspecified (2) Hypoxia SNOMED Code(s): 511558229 ICD Code: R09.02 - HYPOXEMIA Status: Acute Priority: High Current Visit : Yes (3) Anemia SNOMED Code(s): 208858146 ICD Code: D64.9 - ANEMIA, UNSPECIFIED Status: Acute Current Visit: Yes Qualifiers: Anemia type: iron deficiency Iron deficiency anemia type: unspecified iron deficiency Qualified Code(s): D50.9 - Iron deficiency anemia, unspecified (4) Pneumonia SNOMED Code(s): 826288202 ICD Code: J18.9 - PNEUMONIA, UNSPECIFIED ORGANISM Status: Acute Priority : High Current Visit: Yes Qualifiers: Pneumonia type: due to unspecified organism Laterality: bilateral Lung location: lower lobe of lung Qualified Code(s): J18.9 - Pneumonia, unspecified organism (5) Aortic valve disorder SNOMED Code(s): 7841213 ICD Code: I35.9 - NONRHEUMATIC AORTIC VALVE DISORDER, UNSPECIFIED Status: Chronic Priority: Low Current Visit: No (6) Atypical chest pain SNOMED Code(s): 489188796 ICD Code: R07.89 - OTHER CHEST PAIN Status: Chronic Priority: Low Current Visit: No (7) BPH (benign prostatic hyperplasia) SNOMED Code(s): 230863358 ICD Code: N40.0 - BENIGN PROSTATIC HYPERPLASIA WITHOUT LOWER URINRY TRACT SYMP Status: Chronic Priority: Low Current Visit: No Qualifiers: Lower urinary tract symptom presence: unspecified whether lower urinary tract symptoms present Qualified Code(s): N40.0 - Benign prostatic hyperplasia without lower urinary tract symptoms (8) Atrial fibrillation SNOMED Code(s): 85285876 ICD Code: I48.91 - UNSPECIFIED ATRIAL FIBRILLATION Status: Chronic Priority: Medium Current Visit: No Qualifiers: Atrial fibrillation type: chronic Qualified Code(s): I48.2 - Chronic atrial fibrillation (9) CAD (coronary artery disease) SNOMED Code(s): 46532937 ICD Code: I25.10 - ATHSCL HEART DISEASE OF [place]' CORONARY ARTERY W/O ANG PCTRS Status: Chronic Priority: Low Current Visit: No Qualifiers: Coronary Disease-Associated Artery/Lesion type: unspecified vessel or lesion type [place] vs. transplanted heart: [place] heart (10) COPD (chronic obstructive pulmonary disease) SNOMED Code(s): 61310305 ICD Code: J44.9 - CHRONIC OBSTRUCTIVE PULMONARY DISEASE, UNSPECIFIED Status : Chronic Priority: Medium Current Visit: No Qualifiers: Emphysema type: unspecified Problem List Initiated/Reviewed/Updated: Yes Orders Last 24hrs: Active Orders 24 hr Category Date Time Status Activity as Tolerated [RC] .Routine Care 06/24/17 01:10 Active Antiembolic Devices [RC] PER UNIT ROUTINE Care 06/24/17 01:13 Active RT Aerosol Therapy [RC] ASDIRECTED Care 06/24/17 01:04 Active OT Evaluation and Treatment [CONS] Routine Cons 06/24/17 01:11 Active PT Evaluation and Treatment [CONS] Routine Cons 06/24/17 08:00 Active ADA Diabetic [[place] [employer] Diet] [DIET Diet 06/24/17 Breakfast Active ] Acetaminophen [Tylenol] Med 06/24/17 05:41 Active 650 mg PO Q4H PRN Albuterol/Ipratropium [DuoNeb 3.0-0.5 MG/3 ML] Med 06/24/17 01:03 Active 3 ml NEB QIDRT PRN Apixaban [Eliquis] Med 06/24/17 09:00 Active 2.5 mg PO BID Insulin Aspart [NovoLOG] Med 06/24/17 07:00 Active See Protocol SUBCUT QIDACANDBED Piperacillin/Tazobactam [Zosyn] 4.5 gm Med 06/24/17 09:00 Active Sodium Chloride 0.9% [Normal Saline] 100 ml IV ONETIME Piperacillin/Tazobactam [Zosyn] 4.5 gm Med 06/24/17 17:00 Active Sodium Chloride 0.9% [Normal Saline] 100 ml IV Q8H Sodium Chloride 0.9% [Normal Saline] 1,000 ml Med 06/24/17 06:00 Active IV ASDIRECTED CM Case Management Follow Up [CM] Routine Oth 06/24/17 08:00 Active WALKER Hose [Antiembolic Hose] [OM.PC] Routine Oth 06/24/17 01:13 Ordered Code Status [Resuscitation Status] Routine Resus Stat 06/24/17 00:12 Ordered Medication Orders Acetaminophen (Tylenol) 650 mg PO Q4H PRN PRN Reason: Pain/Fever Last Admin: 06/24/17 06:26 Dose: 650 mg Albuterol/Ipratropium (Duoneb 3.0-0.5 Mg/3 Ml) 3 ml NEB QIDRT PRN PRN Reason: Shortness of Breath Apixaban (Eliquis) 2.5 mg PO BID [facility] Sodium Chloride (Normal Saline) 1,000 mls @ 75 mls/hr IV ASDIRECTED MALA Last Admin: 06/24/17 06:26 Dose: 75 mls/hr Piperacillin Sod/Tazobactam (Sod 4.5 gm/ Sodium Chloride) 100 mls @ 200 mls/hr IV ONETIME ONE Stop: 06/24/17 09:29 Piperacillin Sod/Tazobactam (Sod 4.5 gm/ Sodium Chloride) 100 mls @ 25 mls/hr IV Q8H [facility] Insulin Aspart (Novolog) 0 unit SUBCUT QIDACANDBED MALA PRN Reason: Protocol Sodium Chloride (Saline Flush) 10 ml FLUSH ASDIRECTED PRN PRN Reason: Keep Vein Open Last Admin: 06/23/17 18:59 Dose: 10 ml Sodium Chloride (Saline Flush) 10 ml FLUSH ONETIME PRN PRN Reason: IV FLUSH Last Admin: 06/23/17 21:58 Dose: 10 ml Assessment/Plan Comment:: I/P: Acute: PNA -Questionable -Fever (100.5) at SNF, weakness, lethargy -Hospitalized 04/23/17-04/30/17 with pneumonia -Saturations of 91 on room air -No leukocytosis, CRP 1.2 -Negative mycoplasma and influenza screen -Viral panel pending -Levaquin and Zosyn IV -O2 - titrate as needed -Xopenex -RT/IS/Acapella -Solu-medrol - 40mg Q12 -Repeat CXR in 24-48 hrs CHF exacerbation -SOB on presentation -1-2+ pitting edema, mild rhonchi on physical exam -Last echo 12/11/16--EF of 55-65%, mild AV stenosis, mild biatrial dilation, mildto moderate MVR, mild to mod elevated RV pressure at 47.9 -Lasix 20mg IVP daily, hold PO lasix -Salt restriction diet -Diurese Anemia -Was present during last stay - received blood then -Iron studies on 04/25/17 showed Iron of 46, normal B12 and folate -Occult blood ordered -Hgb 9.7-->9.3 -Decrease eliquis dose from 5mg to 2.5mg BID -Monitor for need to transfuse Chronic Type II DM - Danyelle meds, sliding scale, QID accuchecks, A1C on 04/25/17 9.6 A-fib on eliquis COPD/Hx of PNA Former Tobacco, 1969 HTN--stable HLD-lipid panel on 04/25/17 ok, cont statin History of CAD/NM CVA Depression Other: Admitted to medical floor on telemetry overnight, upgrade to ICU today GI/DVT prophylax- Teds and home eliquis Home meds Daily Labs PT/OT consult SW/CSM consult Patient is DNR/DNI status PCP is Dr. Turner with [facility] [place]
[2017-06-24] MEDS ORDERED: Piperacillin/Tazobactam 4.5 GM in Sodium Chloride 0.9% 100 ML IV ONE (09:00)
--- NOTE | 2017-06-24 09:15 | CR ---
Chest: Portable view of the chest was obtained. Comparison: Previous chest x-ray of 05/01/17. Slight parenchymal density is seen within the left base. Lungs otherwise are clear. Heart size is normal. Tortuous thoracic aorta is seen. Bony structures are osteopenic. Slight scoliosis is noted within the spine. Impression: 1. Mild increased density within left base. Findings may represent mild area of pneumonia. 2. Other incidental findings. Diagnostic code #3
[2017-06-24] MEDS ORDERED: Metoprolol Tartrate 5 MG/5 ML SDV IVPUSH PRN (09:22)
[2017-06-24] MEDS ORDERED: hydrALAZINE 20 MG/ML SDV IVPUSH PRN (09:22)
[2017-06-24] MEDS: Apixaban 5 MG Tab PO SCH ×2 (09:33→22:00)
[2017-06-24] MEDS: Insulin Aspart 100 Units/ML 3 ML Pen SUBCUT SCH ×4 (09:33→22:03)
[2017-06-24] MEDS ORDERED: Hypromellose 0.5% Ophth Soln 15 ML Bottle EYEBOTH PRN (09:35)
[2017-06-24] MEDS ORDERED: Furosemide 20 MG/2 ML VIAL IVPUSH ONE (09:44)
[2017-06-24] MEDS: Levalbuterol HCl 1.25 MG/3 ML Neb NEB SCH ×3 (10:00→21:24)
[2017-06-24] MEDS: Diltiazem IR 60 MG Tab PO SCH ×2 (10:05→17:28)
--- NOTE | 2017-06-24 10:05 | CT ---
CT chest Technique: Multiple axial sections were obtained from above the lung apices inferiorly through the lung bases. Intravenous contrast was utilized. Comparison: Prior chest CT of 06/30/08. Findings: Mediastinum and hilar regions show no adenopathy or mass. Atherosclerotic calcification is noted within the aorta. No aneurysm is seen. Coronary artery calcification is seen. No pericardial thickening is noted. Parenchymal densities are noted within both lung bases, worse on the left side. Findings presumably represent pneumonia although some of the finding on the left side could be chronic as parenchymal density is noted on prior study in this area. Slight density also seen within the lingula compatible with atelectasis or additional area of pneumonia. Lungs otherwise are clear. Bony structures show mild scoliosis within the spine with mild scattered degenerative change. Slight compression deformity is noted of the superior endplate of T12 which is believed to be old. Impression: 1. Parenchymal densities within both lung bases and within the lingula. Findings presumably due to areas of pneumonia although some of the finding on the left side could relate to scarring. 2. Other incidental findings as noted above. Diagnostic code #3 Agree with preliminary report issued by [facility] ([facility] preliminary report dictated on 06/23/17, 11:18 PM Central Time) CT abdomen and pelvis Technique: Multiple axial sections were obtained from above the dome of the diaphragm inferiorly through the pubic symphysis. Intravenous contrast was utilized. No oral contrast has been given. Delayed images were also obtained through the bladder. Comparison: Previous CT abdomen and pelvis exam of 01/30/16 is available. Findings: Liver shows no focal parenchymal abnormality. Spleen appears mildly enlarged with length of 14.1 cm. This is slightly more prominent than on prior study but otherwise nonspecific. No adrenal nodule is identified. Surgical clips seen from prior cholecystectomy. Scarring noted within the left kidney. Small cyst noted within the lower left kidney which is stable. Kidneys otherwise are within normal limits. Pancreas shows no abnormality. Aorta contains atherosclerotic calcification which continues into the iliac vessels. No aneurysm is seen. Surgical clips are noted from prior appendectomy. Diverticulosis is noted within the sigmoid colon and within the descending colon without findings of diverticulitis. Delayed images show contrast within the bladder. Mild artifact is noted within the pelvis from previous orthopedic hardware. Degenerative change is noted throughout the spine. Impression: 1. Incidental findings as noted above. 2. Slight splenomegaly which is more prominent than on prior exam which is of uncertain etiology and questionable significance. 3. Nothing acute is otherwise appreciated on CT study of the abdomen and pelvis. Diagnostic code #2 I agree with preliminary report issued by [facility] ([facility] preliminary report dictated on 06/23/17, 11:18 PM Central Time)
[2017-06-24] MEDS: methylPREDNISolone Sodium Succinate 40 MG/1 ML SDV IVPUSH SCH (13:07)
[2017-06-24] MEDS: traMADol 50 MG Tab PO SCH ×2 (15:17→21:57)
[2017-06-24] MEDS: Pantoprazole 40 MG Tab.CR PO SCH (15:18)
[2017-06-24] MEDS: metFORMIN 500 MG Tab PO SCH (17:28)
[2017-06-24] MEDS: Piperacillin/Tazobactam 4.5 GM in Sodium Chloride 0.9% 100 ML IV SCH (17:29)
[2017-06-24] MEDS ORDERED: Apixaban 5 MG Tab PO SCH (21:00)
[2017-06-24] MEDS: Docusate Sodium 100 MG Cap PO SCH (21:57)
[2017-06-24] MEDS: Gabapentin 300 MG Cap PO SCH (21:58)
[2017-06-24] MEDS: Metoprolol Tartrate 50 MG Tab PO SCH (21:59)
[2017-06-24] MEDS: Hypromellose 0.5% Ophth Soln 15 ML Bottle EYEBOTH SCH (22:01)
[2017-06-24] MEDS: ORAJEL BUCCAL SCH (22:02)
[2017-06-25] MEDS: methylPREDNISolone Sodium Succinate 40 MG/1 ML SDV IVPUSH SCH ×2 (00:49→14:29)
[2017-06-25] MEDS: Levofloxacin/Dextrose 5%-Water 750 MG in Premix Bag 1 BAG IV SCH (00:49)
[2017-06-25] MEDS: Piperacillin/Tazobactam 4.5 GM in Sodium Chloride 0.9% 100 ML IV SCH ×4 (01:26→16:40)
[2017-06-25] MEDS: Diltiazem IR 60 MG Tab PO SCH ×3 (01:27→18:06)
[2017-06-25] MEDS: Levalbuterol HCl 1.25 MG/3 ML Neb NEB SCH ×4 (05:58→21:30)
[2017-06-25] MEDS: Pantoprazole 40 MG Tab.CR PO SCH ×2 (06:20→16:36)
[2017-06-25] MEDS: metFORMIN 500 MG Tab PO SCH ×2 (06:20→16:36)
--- NOTE | 2017-06-25 06:38 | PCM.PN ---
- General Info Date of Service: 06/25/17 Admission Dx/Problem (Free Text): Pneumonia Subjective Update: In to see "Brian" today. He reports he does not feel well and has a difficult time describing what he feels like to me. He does say he is weak. His hemoglobin dropped more today. Occult blood was negative. He will receive 2 units. We'll follow-up with CBC to determine if more blood as needed. He is also neutropenic today. We'll continue to monitor. He is having diarrhea now. He has been on multiple stool softeners. We'll check for C. difficile as he has been on multiple antibiotics. Functional Status: Reports: Pain Controlled, Tolerating Diet, Ambulating, Urinating, New Symptoms - Review of Systems General: Reports: No Symptoms, Weakness, Fatigue, Malaise. Denies: Fever HEENT: Reports: No Symptoms Pulmonary: Reports: No Symptoms, Shortness of Breath, Cough, Sputum, Wheezing Cardiovascular: Reports: No Symptoms, Dyspnea on Exertion, Edema. Denies: Chest Pain, Palpitations Gastrointestinal: Reports: No Symptoms, Diarrhea (on multiple stool softeners). Denies: Abdominal Pain, Constipation, Nausea, Vomiting Genitourinary: Reports: No Symptoms Musculoskeletal: Reports: Other ("I hurt all over" this is his baseline.) Skin: Reports: No Symptoms Neurological: Reports: No Symptoms Psychiatric: Reports: No Symptoms - Patient Data Vitals - Most Recent: Last Vital Signs Temp 98.7 F 06/25/17 03:46 Pulse 91 06/25/17 03:46 Resp 15 06/25/17 03:46 BP 91/64 06/25/17 03:46 Pulse Ox 97 06/25/17 05:58 Weight - Most Recent: 199 lb 3.2 oz I&O - Last 24 Hours: Intake & Output 06/24/17 06/24/17 06/25/17 14:59 22:59 06:59 Intake Total 480 597 200 Output Total 500 Balance 480 97 200 Lab Results Last 24 Hours: Laboratory Results - last 24 hr 06/24/17 06/24/17 06/24/17 Range/Units 05:30 05:30 05:30 WBC 5.81 (4.23-9.07) K/mm3 RBC 2.70 L (4.63-6.08) M/mm3 Hgb 9.3 L (13.7-17.5) gm/L Hct 29.2 L (40.1-51.0) % MCV 108.1 H (79.0-92.2) fl MCH 34.4 H (25.7-32.2) pg MCHC 31.8 L (32.2-35.5) g/dl RDW Std Deviation 94.0 H (35.1-43.9) fL Plt Count 156 L (163-337) K/mm3 MPV 11.1 (9.4-12.3) fl Puncture Site ABG pH (7.35-7.45) ABG pCO2 (35.0-45.0) mmHg ABG pO2 (80.0-100.0) mmHg ABG HCO3 (22.0-26.0) meq/L ABG O2 Saturation (96.0-97.0) % ABG Base Excess (-2-2.0) Aguila Test A-a Gradient mmHg O2 Delivery Device Oxygen Flow Rate FiO2 (21.00-100.00) % Sodium 137 (136-145) mEq/L Potassium 4.1 (3.5-5.1) mEq/L Chloride 102 (98-107) mEq/L Carbon Dioxide 29 (21-32) mEq/L Anion Gap 10.1 (5-15) BUN 15 (7-18) mg/dL Creatinine 0.8 (0.7-1.3) mg/dL Est Cr Clr Drug Dosing 63.12 mL/min Estimated GFR (MDRD) > 60 (>60) mL/min BUN/Creatinine Ratio 18.8 H (14-18) Glucose 89 (83-115) mg/dL POC Glucose (83-110) mg/dL Lactic Acid 1.2 (0.4-2.0) mmol/L Calcium 8.1 L (8.5-10.1) mg/dL Magnesium 1.8 (1.8-2.4) mg/dl Troponin I (0.00-0.056) ng/mL C-Reactive Protein 1.2 H* (<1.0) mg/dL 06/24/17 06/24/17 06/24/17 Range/Units 05:30 08:29 09:28 WBC (4.23-9.07) K/mm3 RBC (4.63-6.08) M/mm3 Hgb (13.7-17.5) gm/L Hct (40.1-51.0) % MCV (79.0-92.2) fl MCH (25.7-32.2) pg MCHC (32.2-35.5) g/dl RDW Std Deviation (35.1-43.9) fL Plt Count (163-337) K/mm3 MPV (9.4-12.3) fl Puncture Site Lt radial ABG pH 7.40 (7.35-7.45) ABG pCO2 43.9 (35.0-45.0) mmHg ABG pO2 70.0 L (80.0-100.0) mmHg ABG HCO3 26.3 H (22.0-26.0) meq/L ABG O2 Saturation 94.0 L (96.0-97.0) % ABG Base Excess 1.8 (-2-2.0) Aguila Test Positive A-a Gradient 29 mmHg O2 Delivery Device Nasal cannula Oxygen Flow Rate 1.0 FiO2 24.00 (21.00-100.00) % Sodium (136-145) mEq/L Potassium (3.5-5.1) mEq/L Chloride (98-107) mEq/L Carbon Dioxide (21-32) mEq/L Anion Gap (5-15) BUN (7-18) mg/dL Creatinine (0.7-1.3) mg/dL Est Cr Clr Drug Dosing mL/min Estimated GFR (MDRD) (>60) mL/min BUN/Creatinine Ratio (14-18) Glucose (83-115) mg/dL POC Glucose 194 H (83-110) mg/dL Lactic Acid (0.4-2.0) mmol/L Calcium (8.5-10.1) mg/dL Magnesium (1.8-2.4) mg/dl Troponin I < 0.017 (0.00-0.056) ng/mL C-Reactive Protein (<1.0) mg/dL 06/24/17 06/24/17 06/24/17 Range/Units 10:43 17:34 22:03 WBC (4.23-9.07) K/mm3 RBC (4.63-6.08) M/mm3 Hgb (13.7-17.5) gm/L Hct (40.1-51.0) % MCV (79.0-92.2) fl MCH (25.7-32.2) pg MCHC (32.2-35.5) g/dl RDW Std Deviation (35.1-43.9) fL Plt Count (163-337) K/mm3 MPV (9.4-12.3) fl Puncture Site ABG pH (7.35-7.45) ABG pCO2 (35.0-45.0) mmHg ABG pO2 (80.0-100.0) mmHg ABG HCO3 (22.0-26.0) meq/L ABG O2 Saturation (96.0-97.0) % ABG Base Excess (-2-2.0) Aguila Test A-a Gradient mmHg O2 Delivery Device Oxygen Flow Rate FiO2 (21.00-100.00) % Sodium (136-145) mEq/L Potassium (3.5-5.1) mEq/L Chloride (98-107) mEq/L Carbon Dioxide (21-32) mEq/L Anion Gap (5-15) BUN (7-18) mg/dL Creatinine (0.7-1.3) mg/dL Est Cr Clr Drug Dosing mL/min Estimated GFR (MDRD) (>60) mL/min BUN/Creatinine Ratio (14-18) Glucose (83-115) mg/dL POC Glucose 174 H 231 H 311 H (83-110) mg/dL Lactic Acid (0.4-2.0) mmol/L Calcium (8.5-10.1) mg/dL Magnesium (1.8-2.4) mg/dl Troponin I (0.00-0.056) ng/mL C-Reactive Protein (<1.0) mg/dL 06/25/17 Range/Units 06:20 WBC (4.23-9.07) K/mm3 RBC (4.63-6.08) M/mm3 Hgb (13.7-17.5) gm/L Hct (40.1-51.0) % MCV (79.0-92.2) fl MCH (25.7-32.2) pg MCHC (32.2-35.5) g/dl RDW Std Deviation (35.1-43.9) fL Plt Count (163-337) K/mm3 MPV (9.4-12.3) fl Puncture Site ABG pH (7.35-7.45) ABG pCO2 (35.0-45.0) mmHg ABG pO2 (80.0-100.0) mmHg ABG HCO3 (22.0-26.0) meq/L ABG O2 Saturation (96.0-97.0) % ABG Base Excess (-2-2.0) Aguila Test A-a Gradient mmHg O2 Delivery Device Oxygen Flow Rate FiO2 (21.00-100.00) % Sodium (136-145) mEq/L Potassium (3.5-5.1) mEq/L Chloride (98-107) mEq/L Carbon Dioxide (21-32) mEq/L Anion Gap (5-15) BUN (7-18) mg/dL Creatinine (0.7-1.3) mg/dL Est Cr Clr Drug Dosing mL/min Estimated GFR (MDRD) (>60) mL/min BUN/Creatinine Ratio (14-18) Glucose (83-115) mg/dL POC Glucose 252 H (83-110) mg/dL Lactic Acid (0.4-2.0) mmol/L Calcium (8.5-10.1) mg/dL Magnesium (1.8-2.4) mg/dl Troponin I (0.00-0.056) ng/mL C-Reactive Protein (<1.0) mg/dL Greg Results Last 24 Hours: Microbiology 06/24/17 19:25 Stool Occult Blood (GREG) - Final Stool / Feces NEGATIVE OCCULT BLOOD Med Orders - Current: Current Medications Acetaminophen (Tylenol) 650 mg PO Q6H PRN PRN Reason: Pain/Fever Acetaminophen (Tylenol) 650 mg PO Q6H PRN PRN Reason: Pain/Fever Albuterol/Ipratropium (Duoneb 3.0-0.5 Mg/3 Ml) 3 ml NEB QIDRT PRN PRN Reason: Shortness of Breath Apixaban (Eliquis) 2.5 mg PO BID [facility] Last Admin: 06/24/17 22:00 Dose: 2.5 mg Artificial Tears (Isopto Tears 0.5% Ophth Soln) 0 ml EYEBOTH BID PRN PRN Reason: Dry Eyes Artificial Tears (Isopto Tears 0.5% Ophth Soln) 0 ml EYEBOTH BID [facility] Last Admin: 06/24/17 22:01 Dose: 1 drop Calcium Carbonate/Glycine (Tums) 500 mg PO DAILY [facility] Diltiazem HCl (Cardizem) 60 mg PO Q8H [facility] Last Admin: 06/25/17 01:27 Dose: 60 mg Docusate Sodium (Colace) 200 mg PO BID [facility] Last Admin: 06/24/17 21:57 Dose: 200 mg Donepezil HCl (Aricept) 10 mg PO DAILY [facility] Duloxetine HCl (Cymbalta) 60 mg PO DAILY [facility] Ferrous Sulfate (Ferrous Sulfate) 325 mg PO DAILY [facility] Furosemide (Lasix) 20 mg IVPUSH DAILY [facility] Gabapentin (Neurontin) 300 mg PO BID [facility] Last Admin: 06/24/17 21:58 Dose: 300 mg Hydralazine HCl (Apresoline) 10 mg IVPUSH Q6H PRN PRN Reason: Hypertension Piperacillin Sod/Tazobactam (Sod 4.5 gm/ Sodium Chloride) 100 mls @ 25 mls/hr IV Q8H [facility] Last Admin: 06/25/17 01:26 Dose: 25 mls/hr Levofloxacin/Dextrose 750 mg/ (Premix) 150 mls @ 100 mls/hr IV Q24H [facility] Last Admin: 06/25/17 00:49 Dose: 100 mls/hr Insulin Aspart (Novolog) 0 unit SUBCUT QIDACANDBED [facility] PRN Reason: Protocol Last Admin: 06/24/17 22:03 Dose: 4 units Insulin Detemir (Levemir) 11 unit SUBCUT BID [facility] Levalbuterol HCl (Xopenex) 1.25 mg NEB QIDRT [facility] Last Admin: 06/25/17 05:58 Dose: 1.25 mg Magnesium Oxide (Magnesium Oxide) 400 mg PO DAILY [facility] Metformin HCl (Glucophage) 250 mg PO BIDMEALS [facility] Last Admin: 06/25/17 06:20 Dose: 250 mg Methylprednisolone Sodium Succinate (Solu-Medrol) 40 mg IVPUSH Q12H [facility] Last Admin: 06/25/17 00:49 Dose: 40 mg Metoprolol Tartrate (Lopressor) 5 mg IVPUSH Q4H PRN PRN Reason: Tachycardia Metoprolol Tartrate (Lopressor) 50 mg PO Q12HR [facility] Last Admin: 06/24/17 21:59 Dose: Not Given Pantoprazole Sodium (Protonix) 40 mg PO BIDAC [facility] Last Admin: 06/25/17 06:20 Dose: 40 mg Orajel 1 Applic 0 each BUCCAL BID [facility] Last Admin: 06/24/17 22:02 Dose: Not Given Polyethylene Glycol (Miralax) 17 gm PO DAILY [facility] Risperidone (Risperidal) 0.125 mg PO DAILY [facility] Saccharomyces Boulardii (Florastor) 250 mg PO DAILY [facility] Senna (Senna) 17.2 mg PO DAILY [facility] Sodium Chloride (Saline Flush) 10 ml FLUSH ASDIRECTED PRN PRN Reason: Keep Vein Open Last Admin: 06/23/17 18:59 Dose: 10 ml Sodium Chloride (Saline Flush) 10 ml FLUSH ONETIME PRN PRN Reason: IV FLUSH Last Admin: 06/23/17 21:58 Dose: 10 ml Tamsulosin HCl (Flomax) 0.4 mg PO DAILY [facility] Tramadol HCl (Ultram) 100 mg PO TID [facility] Last Admin: 06/24/17 21:57 Dose: 100 mg Discontinued Medications Acetaminophen (Tylenol) 650 mg PO NOW ONE Stop: 06/23/17 20:57 Last Admin: 06/23/17 21:09 Dose: 650 mg Acetaminophen (Tylenol) 650 mg PO Q4H PRN PRN Reason: Pain/Fever Last Admin: 06/24/17 06:26 Dose: 650 mg Apixaban (Eliquis) 2.5 mg PO BID [facility] Dextrose/Water (Dextrose 50% In Water) 25 ml IVPUSH ASDIRECTED ONE Stop: 06/23/17 21:50 Last Admin: 06/23/17 22:05 Dose: 25 ml Furosemide (Lasix) 20 mg IVPUSH NOW ONE Stop: 06/24/17 09:45 Last Admin: 06/24/17 10:04 Dose: 20 mg Sodium Chloride (Normal Saline) 250 mls @ 999 mls/hr IV ONETIME ONE Stop: 06/23/17 19:18 Last Admin: 06/24/17 01:22 Dose: Not Given Sodium Chloride (Normal Saline) 500 mls @ 999 mls/hr IV ONETIME ONE Stop: 06/23/17 19:33 Last Admin: 06/23/17 19:13 Dose: 999 mls/hr Sodium Chloride (Normal Saline) 1,000 mls @ 100 mls/hr IV ONETIME ONE Stop: 06/24/17 06:54 Last Admin: 06/23/17 21:05 Dose: 100 mls/hr Ceftriaxone Sodium 2 gm/ (Sodium Chloride) 100 mls @ 100 mls/hr IV ONETIME ONE Stop: 06/23/17 23:13 Last Admin: 06/23/17 22:35 Dose: 100 mls/hr Sodium Chloride (Normal Saline) 500 mls @ 999 mls/hr IV ONETIME ONE Stop: 06/23/17 22:54 Last Admin: 06/24/17 01:23 Dose: Not Given Sodium Chloride (Normal Saline) 1,000 mls @ 999 mls/hr IV ONETIME ONE Stop: 06/23/17 23:24 Last Admin: 06/23/17 22:38 Dose: 999 mls/hr Levofloxacin/Dextrose 750 mg/ (Premix) 150 mls @ 100 mls/hr IV ONETIME ONE Stop: 06/24/17 02:39 Last Admin: 06/24/17 01:40 Dose: 100 mls/hr Sodium Chloride (Normal Saline) 1,000 mls @ 75 mls/hr IV ASDIRECTED [facility]A Last Admin: 06/24/17 06:26 Dose: 75 mls/hr Piperacillin Sod/Tazobactam (Sod 4.5 gm/ Sodium Chloride) 100 mls @ 200 mls/hr IV ONETIME ONE Stop: 06/24/17 09:29 Last Admin: 06/24/17 09:34 Dose: 200 mls/hr Iopamidol (Isovue-300 (61%)) 150 ml IVPUSH ONETIME ONE Stop: 06/23/17 21:43 Last Admin: 06/23/17 21:58 Dose: 125 ml - Exam Quality Assessment: Supplemental Oxygen, DVT Prophylaxis General: Alert, Oriented, Cooperative, No Acute Distress HEENT: Pupils Equal, Pupils Reactive, EOMI, Mucous Membr. Moist/[place]: Supple, Trachea Midline, No JVD Lungs: Normal Respiratory Effort, Rhonchi (mild, right lower lung ), Wheezing Cardiovascular: Regular Rate, Irregular Rhythm GI/Abdominal Exam: Normal Bowel Sounds, Soft, No Organomegaly, No Distention, No Abnormal Bruit, No Mass, Pelvis Stable, Tender (generalized which he reports is baseline ) (Male) Exam: Deferred Extremities: Normal Inspection, Normal Range of Motion, Non-Tender, Normal Capillary Refill, Pedal Edema (trace to 1+) Peripheral Pulses: 1+: Posterior Tibial (L), Posterior Tibial (R), Dorsalis Pedis (L), Dorsalis Pedis (R), 2+: Radial (L), Radial (R) Skin: Warm, Dry, Intact, Ecchymosis (on arms from blood draws ) Neurological: No New Focal Deficit Psy/Mental Status: Alert, Normal Affect, Normal Mood - Problem List & Annotations (1) Fever SNOMED Code(s): 000587748 Code(s): R50.9 - FEVER, UNSPECIFIED Status: Acute Priority: High Current Visit: Yes Qualifiers: Fever type: unspecified Qualified Code(s): R50.9 - Fever, unspecified (2) Hypoxia SNOMED Code(s): 810498482 Code(s): R09.02 - HYPOXEMIA Status: Acute Priority: High Current Visit : Yes (3) Anemia SNOMED Code(s): 634653851 Code(s): D64.9 - ANEMIA, UNSPECIFIED Status: Acute Current Visit: Yes Qualifiers: Anemia type: iron deficiency Iron deficiency anemia type: unspecified iron deficiency Qualified Code(s): D50.9 - Iron deficiency anemia, unspecified (4) Pneumonia SNOMED Code(s): 465247445 Code(s): J18.9 - PNEUMONIA, UNSPECIFIED ORGANISM Status: Acute Priority: High Current Visit: Yes Qualifiers: Pneumonia type: due to unspecified organism Laterality: bilateral Lung location: lower lobe of lung Qualified Code(s): J18.9 - Pneumonia, unspecified organism (5) Aortic valve disorder SNOMED Code(s): 5826432 Code(s): I35.9 - NONRHEUMATIC AORTIC VALVE DISORDER, UNSPECIFIED Status: Chronic Priority: Low Current Visit: No (6) Atypical chest pain SNOMED Code(s): 375095401 Code(s): R07.89 - OTHER CHEST PAIN Status: Chronic Priority: Low Current Visit: No (7) BPH (benign prostatic hyperplasia) SNOMED Code(s): 580815971 Code(s): N40.0 - BENIGN PROSTATIC HYPERPLASIA WITHOUT LOWER URINRY TRACT SYMP Status: Chronic Priority: Low Current Visit: No Qualifiers: Lower urinary tract symptom presence: unspecified whether lower urinary tract symptoms present Qualified Code(s): N40.0 - Benign prostatic hyperplasia without lower urinary tract symptoms (8) Atrial fibrillation SNOMED Code(s): 39828359 Code(s): I48.91 - UNSPECIFIED ATRIAL FIBRILLATION Status: Chronic Priority: Medium Current Visit: No Qualifiers: Atrial fibrillation type: chronic Qualified Code(s): I48.2 - Chronic atrial fibrillation (9) CAD (coronary artery disease) SNOMED Code(s): 92487845 Code(s): I25.10 - ATHSCL HEART DISEASE OF [place] CORONARY ARTERY W/O ANG PCTRS Status: Chronic Priority: Low Current Visit: No Qualifiers: Coronary Disease-Associated Artery/Lesion type: unspecified vessel or lesion type [place] vs. transplanted heart: [place] heart (10) COPD (chronic obstructive pulmonary disease) SNOMED Code(s): 79859224 Code(s): J44.9 - CHRONIC OBSTRUCTIVE PULMONARY DISEASE, UNSPECIFIED Status : Chronic Priority: Medium Current Visit: No Qualifiers: Emphysema type: unspecified (11) Neutropenia SNOMED Code(s): 653708846 Code(s): D70.9 - NEUTROPENIA, UNSPECIFIED Status: Acute Priority: High Current Visit: Yes Qualifiers: Neutropenia type: unspecified Qualified Code(s): D70.9 - Neutropenia, unspecified - Problem List Review Problem List Initiated/Reviewed/Updated: Yes - My Orders Last 24 Hours: My Active Orders 06/24/17 09:22 Metoprolol Tartrate [Lopressor] 5 mg IVPUSH Q4H PRN hydrALAZINE [Apresoline] 10 mg IVPUSH Q6H PRN 06/24/17 09:33 RT Aerosol Therapy [RC] .PRN 06/24/17 10:00 Levalbuterol HCl [Xopenex] 1.25 mg NEB QIDRT 06/24/17 12:16 RT Chest Physiotherapy [RC] ASDIRECTED RT Incentive Spirometry [RC] ASDIRECTED Consult to Respiratory Therapy [Respiratory Care Assess and Treatment] [CONS] Routine 06/24/17 13:00 methylPREDNISolone Sod Succ [Solu-MEDROL] 40 mg IVPUSH Q12H 06/24/17 17:00 Piperacillin/Tazobactam [Zosyn] 4.5 gm Sodium Chloride 0.9% [Normal Saline] 100 ml IV Q8H 06/24/17 Dinner 2 Gram Sodium Diet [DIET] 06/25/17 01:30 Levofloxacin/Dextrose 5%-Water [Levaquin in D5W 750 MG/150 ML] 750 mg Premix Bag 1 bag IV Q24H 06/25/17 05:39 BASIC METABOLIC PANEL,BMP [CHEM] AM CBC WITH AUTO DIFF [HEME] AM CRP [C-REACTIVE PROTEIN] [CHEM] AM MAGNESIUM [CHEM] AM PRO B-TYPE NATRIUR PEPT,BNPPRO [CHEM] DAILY 06/25/17 09:00 Furosemide [Lasix] 20 mg IVPUSH DAILY 06/26/17 05:11 BASIC METABOLIC PANEL,BMP [CHEM] AM CBC WITH AUTO DIFF [HEME] AM CRP [C-REACTIVE PROTEIN] [CHEM] AM MAGNESIUM [CHEM] AM PRO B-TYPE NATRIUR PEPT,BNPPRO [CHEM] DAILY 06/26/17 08:00 CXR [Chest 2V] [CR] Routine 06/27/17 05:11 BASIC METABOLIC PANEL,BMP [CHEM] AM CBC WITH AUTO DIFF [HEME] AM CRP [C-REACTIVE PROTEIN] [CHEM] AM MAGNESIUM [CHEM] AM PRO B-TYPE NATRIUR PEPT,BNPPRO [CHEM] DAILY 06/28/17 05:11 BASIC METABOLIC PANEL,BMP [CHEM] AM CBC WITH AUTO DIFF [HEME] AM CRP [C-REACTIVE PROTEIN] [CHEM] AM MAGNESIUM [CHEM] AM PRO B-TYPE NATRIUR PEPT,BNPPRO [CHEM] DAILY - Plan Plan:: I/P: Acute: PNA -Questionable -Fever (100.5) at SNF, weakness, lethargy -Hospitalized 04/23/17-04/30/17 with pneumonia -Saturations of 91 on room air -No leukocytosis, CRP 1.2 -Negative mycoplasma and influenza screen -Viral panel pending -Levaquin and Zosyn IV -O2 - titrate as needed -Xopenex -RT/IS/Acapella -Solu-medrol - 40mg Q12 -Repeat CXR in 24-48 hrs -Sputum culture CHF exacerbation -SOB on presentation -1-2+ pitting edema, mild rhonchi on physical exam, improved -Last echo 12/11/16--EF of 55-65%, mild AV stenosis, mild biatrial dilation, mildto moderate MVR, mild to mod elevated RV pressure at 47.9 -Repeat echo today -Lasix 20mg IVP daily, hold PO lasix -Salt restriction diet -Diurese Anemia -Was present during last stay - received blood then -Iron studies on 04/25/17 showed Iron of 46, normal B12 and folate -Occult blood ordered -Hgb 9.7-->9.3-->8.0 -Decrease eliquis dose from 5mg to 2.5mg BID -Transfuse 2 units today (06/25/17) lasix after Neutropenia -Protective isolation -Receiving blood -Monitor with daily labs Chronic Type II DM - Danyelle meds, sliding scale, QID accuchecks, A1C on 04/25/17 9.6 A-fib on eliquis COPD/Hx of PNA Former Tobacco, 1969 HTN--stable HLD-lipid panel on 04/25/17 ok, cont statin History of CAD/ID CVA Depression Other: Admitted to medical floor on telemetry overnight, upgrade to ICU today GI/DVT prophylax- Teds and home eliquis Home meds Daily Labs PT/OT consult SW/CSM consult Patient is DNR status PCP is Dr. Turner with [facility] in [place]
[2017-06-25] MEDS ORDERED: Furosemide 40 MG/4 ML VIAL IV ONE (08:11)
[2017-06-25] MEDS: Insulin Aspart 100 Units/ML 3 ML Pen SUBCUT SCH ×4 (08:33→21:19)
[2017-06-25] MEDS: Apixaban 5 MG Tab PO SCH ×2 (08:34→21:15)
[2017-06-25] MEDS: DULoxetine 30 MG Cap PO SCH (08:35)
[2017-06-25] MEDS: Ferrous Sulfate 325 MG Tab PO SCH (08:35)
[2017-06-25] MEDS: Magnesium Oxide 400 MG Tab PO SCH (08:35)
[2017-06-25] MEDS: Docusate Sodium 100 MG Cap PO SCH ×2 (08:35→21:13)
[2017-06-25] MEDS: Insulin Detemir 100 Units/ML 3 ML Pen SUBCUT SCH ×2 (08:36→21:18)
[2017-06-25] MEDS: Metoprolol Tartrate 50 MG Tab PO SCH ×3 (08:38→21:21)
[2017-06-25] MEDS: Hypromellose 0.5% Ophth Soln 15 ML Bottle EYEBOTH SCH ×2 (08:43→21:15)
[2017-06-25] MEDS: Furosemide 20 MG/2 ML VIAL IVPUSH SCH (08:43)
[2017-06-25] MEDS: Tamsulosin 0.4 MG Cap.ER PO SCH (08:47)
[2017-06-25] MEDS: Donepezil 10 MG Tab PO SCH (08:49)
[2017-06-25] MEDS: Gabapentin 300 MG Cap PO SCH ×2 (08:50→21:13)
[2017-06-25] MEDS: Saccharomyces Boulardii (Probiotic) 250 MG Cap PO SCH (08:50)
[2017-06-25] MEDS: risperiDONE 0.25 MG Tab PO SCH (08:53)
[2017-06-25] MEDS: Polyethylene Glycol 3350 Powder 17 GM Packet PO SCH (08:54)
[2017-06-25] MEDS: Calcium Carbonate 500 MG Tab.Chew PO SCH (08:55)
[2017-06-25] MEDS: ORAJEL BUCCAL SCH ×2 (08:56→21:19)
[2017-06-25] MEDS: Sennosides 8.6 MG Tab PO SCH (08:56)
[2017-06-25] MEDS: traMADol 50 MG Tab PO SCH ×3 (08:58→21:13)
[2017-06-25] MEDS ORDERED: Sodium Chloride 0.9% 100 ML ONE ×2 (09:02→11:43)
[2017-06-25] MEDS ORDERED: Magnesium Sulfate/Water 2 GM in Premix Bag 1 BAG IV ONE (09:43)
[2017-06-25] MEDS ORDERED: Furosemide 40 MG/4 ML VIAL IVPUSH ONE (14:19)
[2017-06-26] MEDS: methylPREDNISolone Sodium Succinate 40 MG/1 ML SDV IVPUSH SCH ×2 (00:10→13:46)
[2017-06-26] MEDS: Piperacillin/Tazobactam 4.5 GM in Sodium Chloride 0.9% 100 ML IV SCH ×3 (01:26→16:18)
[2017-06-26] MEDS: Levofloxacin/Dextrose 5%-Water 750 MG in Premix Bag 1 BAG IV SCH (01:26)
[2017-06-26] MEDS: Diltiazem IR 60 MG Tab PO SCH ×3 (01:34→18:00)
[2017-06-26] MEDS: Levalbuterol HCl 1.25 MG/3 ML Neb NEB SCH ×4 (06:00→20:31)
[2017-06-26] MEDS: Pantoprazole 40 MG Tab.CR PO SCH ×2 (06:16→16:15)
[2017-06-26] MEDS: metFORMIN 500 MG Tab PO SCH ×2 (06:16→16:15)
[2017-06-26] MEDS: Docusate Sodium 100 MG Cap PO SCH ×2 (09:17→21:23)
[2017-06-26] MEDS: Saccharomyces Boulardii (Probiotic) 250 MG Cap PO SCH (09:17)
[2017-06-26] MEDS: Apixaban 5 MG Tab PO SCH ×2 (09:17→21:24)
[2017-06-26] MEDS: Magnesium Oxide 400 MG Tab PO SCH (09:17)
[2017-06-26] MEDS: traMADol 50 MG Tab PO SCH ×3 (09:18→21:21)
[2017-06-26] MEDS: Donepezil 10 MG Tab PO SCH (09:18)
[2017-06-26] MEDS: DULoxetine 30 MG Cap PO SCH (09:19)
[2017-06-26] MEDS: Gabapentin 300 MG Cap PO SCH ×2 (09:19→21:21)
[2017-06-26] MEDS: Furosemide 20 MG/2 ML VIAL IVPUSH SCH (09:21)
[2017-06-26] MEDS: Calcium Carbonate 500 MG Tab.Chew PO SCH (09:21)
[2017-06-26] MEDS: Ferrous Sulfate 325 MG Tab PO SCH (09:21)
[2017-06-26] MEDS: Metoprolol Tartrate 50 MG Tab PO SCH ×2 (09:21→21:23)
[2017-06-26] MEDS: Sennosides 8.6 MG Tab PO SCH (09:21)
--- NOTE | 2017-06-26 09:21 | CR ---
Chest: Two views of the chest were obtained. Comparison: Prior chest x-ray of 06/23/[address] of 06/23/17. Better aeration of the left lung base is seen from prior exam. No acute pulmonary densities are appreciated on current study. Lung markings are slightly increased believed to be chronic. Heart size is normal. Tortuous thoracic aorta is seen. Lungs are hyperinflated compatible with emphysematous change. Degenerative spurring is noted within the mid thoracic spine. Impression: 1. Improved aeration of the left lung base from prior study. 2. Emphysematous change and other incidental findings. Diagnostic code #2
[2017-06-26] MEDS: Tamsulosin 0.4 MG Cap.ER PO SCH (09:22)
[2017-06-26] MEDS: Hypromellose 0.5% Ophth Soln 15 ML Bottle EYEBOTH SCH ×2 (09:25→21:24)
[2017-06-26] MEDS: Insulin Detemir 100 Units/ML 3 ML Pen SUBCUT SCH ×2 (09:25→21:22)
[2017-06-26] MEDS: Insulin Aspart 100 Units/ML 3 ML Pen SUBCUT SCH ×4 (09:26→21:22)
[2017-06-26] MEDS: ORAJEL BUCCAL SCH ×2 (09:44→21:24)
[2017-06-26] MEDS: Polyethylene Glycol 3350 Powder 17 GM Packet PO SCH (09:45)
[2017-06-26] MEDS: risperiDONE 0.25 MG Tab PO SCH (10:29)
--- NOTE | 2017-06-26 17:11 | PCM.PN ---
- General Info Date of Service: 06/26/17 Admission Dx/Problem (Free Text): Pneumonia Functional Status: Reports: Pain Controlled, Tolerating Diet, Ambulating, Urinating, Incentive Spirometry. Denies: New Symptoms - Review of Systems General: Reports: Weakness, Fatigue, Malaise HEENT: Denies: Ear Pain, Headaches, Post Nasal Drip, Sinus Congestion, Visual Changes Pulmonary: Reports: Shortness of Breath, Pleuritic Chest Pain, Cough, Sputum, Wheezing Cardiovascular: Reports: Dyspnea on Exertion. Denies: Palpitations, Lightheadedness Gastrointestinal: Reports: No Symptoms. Denies: Abdominal Pain, Constipation, Diarrhea, Nausea, Vomiting Genitourinary: Reports: No Symptoms Musculoskeletal: Reports: Other ("Hurt all over") Skin: Reports: No Symptoms Neurological: Reports: No Symptoms Psychiatric: Reports: No Symptoms - Patient Data Vitals - Most Recent: Last Vital Signs Temp 98.6 F 06/26/17 16:00 Pulse 102 H 06/26/17 16:00 Resp 20 06/26/17 16:00 BP 99/73 06/26/17 16:00 Pulse Ox 95 06/26/17 16:00 Weight - Most Recent: 196 lb 4.8 oz I&O - Last 24 Hours: Intake & Output 06/26/17 06/26/17 06/26/17 06:59 14:59 22:59 Intake Total 300 120 260 Output Total 800 650 220 Balance -500 -530 40 Lab Results Last 24 Hours: Laboratory Results - last 24 hr 06/25/17 06/25/17 06/25/17 Range/Units 17:00 17:56 21:11 WBC 6.44 (4.23-9.07) K/mm3 RBC 3.04 L (4.63-6.08) M/mm3 Hgb 10.2 L (13.7-17.5) gm/L Hct 30.7 L (40.1-51.0) % MCV 101.0 H (79.0-92.2) fl MCH 33.6 H (25.7-32.2) pg MCHC 33.2 (32.2-35.5) g/dl RDW Std Deviation 79.7 H (35.1-43.9) fL Plt Count 111 L (163-337) K/mm3 MPV 10.5 (9.4-12.3) fl Neut % (Auto) 80.7 H (34.0-67.9) % Lymph % (Auto) 9.3 L (21.8-53.1) % [place] % (Auto) 9.8 (5.3-12.2) % Eos % (Auto) 0 L (0.8-7.0) Baso % (Auto) 0.2 (0.1-1.2) % Neut # (Auto) 5.20 (1.78-5.38) K/mm3 Lymph # (Auto) 0.60 L (1.32-3.57) K/mm3 [place] # (Auto) 0.63 (0.30-0.82) K/mm3 Eos # (Auto) 0.00 L (0.04-0.54) K/mm3 Baso # (Auto) 0.01 (0.01-0.08) K/mm3 Manual Slide Review Abnormal smear Sodium (136-145) mEq/L Potassium (3.5-5.1) mEq/L Chloride (98-107) mEq/L Carbon Dioxide (21-32) mEq/L Anion Gap (5-15) BUN (7-18) mg/dL Creatinine (0.7-1.3) mg/dL Est Cr Clr Drug Dosing mL/min Estimated GFR (MDRD) (>60) mL/min BUN/Creatinine Ratio (14-18) Glucose (83-115) mg/dL POC Glucose 230 H 260 H (83-110) mg/dL Calcium (8.5-10.1) mg/dL Magnesium (1.8-2.4) mg/dl C-Reactive Protein (<1.0) mg/dL NT-Pro-B Natriuret Pep (0-450) pg/mL C.difficile 027-NAP1-B1 C. difficile Tox (PCR) 06/26/17 06/26/17 06/26/17 Range/Units 05:55 05:55 05:55 WBC 4.08 L (4.23-9.07) K/mm3 RBC 2.95 L (4.63-6.08) M/mm3 Hgb 9.8 L (13.7-17.5) gm/L Hct 29.6 L (40.1-51.0) % MCV 100.3 H (79.0-92.2) fl MCH 33.2 H (25.7-32.2) pg MCHC 33.1 (32.2-35.5) g/dl RDW Std Deviation 81.0 H (35.1-43.9) fL Plt Count 108 L (163-337) K/mm3 MPV 11.3 (9.4-12.3) fl Neut % (Auto) 81.7 H (34.0-67.9) % Lymph % (Auto) 11.3 L (21.8-53.1) % [place] % (Auto) 6.6 (5.3-12.2) % Eos % (Auto) 0 L (0.8-7.0) Baso % (Auto) 0.2 (0.1-1.2) % Neut # (Auto) 3.33 (1.78-5.38) K/mm3 Lymph # (Auto) 0.46 L (1.32-3.57) K/mm3 [place] # (Auto) 0.27 L (0.30-0.82) K/mm3 Eos # (Auto) 0.00 L (0.04-0.54) K/mm3 Baso # (Auto) 0.01 (0.01-0.08) K/mm3 Manual Slide Review Abnormal smear Sodium 136 (136-145) mEq/L Potassium 4.4 (3.5-5.1) mEq/L Chloride 98 (98-107) mEq/L Carbon Dioxide 29 (21-32) mEq/L Anion Gap 13.4 (5-15) BUN 22 H (7-18) mg/dL Creatinine 1.1 (0.7-1.3) mg/dL Est Cr Clr Drug Dosing 45.90 mL/min Estimated GFR (MDRD) > 60 (>60) mL/min BUN/Creatinine Ratio 20.0 H (14-18) Glucose 198 H (83-115) mg/dL POC Glucose (83-110) mg/dL Calcium 8.1 L (8.5-10.1) mg/dL Magnesium 1.8 (1.8-2.4) mg/dl C-Reactive Protein 2.7 H* (<1.0) mg/dL NT-Pro-B Natriuret Pep 2599 H (0-450) pg/mL C.difficile 027-NAP1-B1 C. difficile Tox (PCR) 06/26/17 06/26/17 06/26/17 Range/Units 06:15 10:30 12:01 WBC (4.23-9.07) K/mm3 RBC (4.63-6.08) M/mm3 Hgb (13.7-17.5) gm/L Hct (40.1-51.0) % MCV (79.0-92.2) fl MCH (25.7-32.2) pg MCHC (32.2-35.5) g/dl RDW Std Deviation (35.1-43.9) fL Plt Count (163-337) K/mm3 MPV (9.4-12.3) fl Neut % (Auto) (34.0-67.9) % Lymph % (Auto) (21.8-53.1) % [place] % (Auto) (5.3-12.2) % Eos % (Auto) (0.8-7.0) Baso % (Auto) (0.1-1.2) % Neut # (Auto) (1.78-5.38) K/mm3 Lymph # (Auto) (1.32-3.57) K/mm3 [place] # (Auto) (0.30-0.82) K/mm3 Eos # (Auto) (0.04-0.54) K/mm3 Baso # (Auto) (0.01-0.08) K/mm3 Manual Slide Review Sodium (136-145) mEq/L Potassium (3.5-5.1) mEq/L Chloride (98-107) mEq/L Carbon Dioxide (21-32) mEq/L Anion Gap (5-15) BUN (7-18) mg/dL Creatinine (0.7-1.3) mg/dL Est Cr Clr Drug Dosing mL/min Estimated GFR (MDRD) (>60) mL/min BUN/Creatinine Ratio (14-18) Glucose (83-115) mg/dL POC Glucose 197 H 302 H (83-110) mg/dL Calcium (8.5-10.1) mg/dL Magnesium (1.8-2.4) mg/dl C-Reactive Protein (<1.0) mg/dL NT-Pro-B Natriuret Pep (0-450) pg/mL C.difficile 027-NAP1-B1 Presumptive negative C. difficile Tox (PCR) Negative Greg Results Last 24 Hours: Microbiology 06/25/17 16:00 Gram Stain - Final Sputum - Expectorated Sputum Culture - Preliminary Med Orders - Current: Current Medications Acetaminophen (Tylenol) 650 mg PO Q6H PRN PRN Reason: Pain/Fever Acetaminophen (Tylenol) 650 mg PO Q6H PRN PRN Reason: Pain/Fever Albuterol/Ipratropium (Duoneb 3.0-0.5 Mg/3 Ml) 3 ml NEB QIDRT PRN PRN Reason: Shortness of Breath Apixaban (Eliquis) 2.5 mg PO BID [facility] Last Admin: 06/26/17 09:17 Dose: 2.5 mg Artificial Tears (Isopto Tears 0.5% Ophth Soln) 0 ml EYEBOTH BID PRN PRN Reason: Dry Eyes Artificial Tears (Isopto Tears 0.5% Ophth Soln) 0 ml EYEBOTH BID [facility] Last Admin: 06/26/17 09:25 Dose: 1 drop Calcium Carbonate/Glycine (Tums) 500 mg PO DAILY [facility] Last Admin: 06/26/17 09:21 Dose: 500 mg Diltiazem HCl (Cardizem) 60 mg PO Q8H [facility] Last Admin: 06/26/17 11:27 Dose: 60 mg Docusate Sodium (Colace) 200 mg PO BID [facility] Last Admin: 06/26/17 09:17 Dose: 200 mg Donepezil HCl (Aricept) 10 mg PO DAILY [facility] Last Admin: 06/26/17 09:18 Dose: 10 mg Duloxetine HCl (Cymbalta) 60 mg PO DAILY [facility] Last Admin: 06/26/17 09:19 Dose: 60 mg Ferrous Sulfate (Ferrous Sulfate) 325 mg PO DAILY [facility] Last Admin: 06/26/17 09:21 Dose: 325 mg Furosemide (Lasix) 20 mg IVPUSH DAILY [facility] Last Admin: 06/26/17 09:21 Dose: 20 mg Gabapentin (Neurontin) 300 mg PO BID [facility] Last Admin: 06/26/17 09:19 Dose: 300 mg Hydralazine HCl (Apresoline) 10 mg IVPUSH Q6H PRN PRN Reason: Hypertension Piperacillin Sod/Tazobactam (Sod 4.5 gm/ Sodium Chloride) 100 mls @ 25 mls/hr IV Q8H [facility] Last Admin: 06/26/17 16:18 Dose: 25 mls/hr Insulin Aspart (Novolog) 0 unit SUBCUT QIDACANDBED [facility] PRN Reason: Protocol Last Admin: 06/26/17 12:43 Dose: 4 units Insulin Detemir (Levemir) 11 unit SUBCUT BID [facility] Last Admin: 06/26/17 09:25 Dose: 11 units Levalbuterol HCl (Xopenex) 1.25 mg NEB QIDRT [facility] Last Admin: 06/26/17 15:56 Dose: 1.25 mg Magnesium Oxide (Magnesium Oxide) 400 mg PO DAILY [facility] Last Admin: 06/26/17 09:17 Dose: 400 mg Metformin HCl (Glucophage) 250 mg PO BIDMEALS [facility] Last Admin: 06/26/17 16:15 Dose: 250 mg Methylprednisolone Sodium Succinate (Solu-Medrol) 40 mg IVPUSH Q12H [facility] Last Admin: 06/26/17 13:46 Dose: 40 mg Metoprolol Tartrate (Lopressor) 5 mg IVPUSH Q4H PRN PRN Reason: Tachycardia Last Admin: 06/26/17 12:45 Dose: 5 mg Metoprolol Tartrate (Lopressor) 50 mg PO Q12HR [facility] Last Admin: 06/26/17 09:21 Dose: Not Given Pantoprazole Sodium (Protonix) 40 mg PO BIDAC [facility] Last Admin: 06/26/17 16:15 Dose: 40 mg Orajel 1 Applic 0 each BUCCAL BID [facility] Last Admin: 06/26/17 09:44 Dose: Not Given Polyethylene Glycol (Miralax) 17 gm PO DAILY [facility] Last Admin: 06/26/17 09:45 Dose: 17 gm Risperidone (Risperidal) 0.125 mg PO DAILY [facility] Last Admin: 06/26/17 10:29 Dose: 0.125 mg Saccharomyces Boulardii (Florastor) 250 mg PO DAILY [facility] Last Admin: 06/26/17 09:17 Dose: 250 mg Senna (Senna) 17.2 mg PO DAILY [facility] Last Admin: 06/26/17 09:21 Dose: 17.2 mg Sodium Chloride (Saline Flush) 10 ml FLUSH ASDIRECTED PRN PRN Reason: Keep Vein Open Last Admin: 06/23/17 18:59 Dose: 10 ml Sodium Chloride (Saline Flush) 10 ml FLUSH ONETIME PRN PRN Reason: IV FLUSH Last Admin: 06/23/17 21:58 Dose: 10 ml Tamsulosin HCl (Flomax) 0.4 mg PO DAILY [facility] Last Admin: 06/26/17 09:22 Dose: 0.4 mg Tramadol HCl (Ultram) 100 mg PO TID [facility] Last Admin: 06/26/17 16:14 Dose: 100 mg Discontinued Medications Acetaminophen (Tylenol) 650 mg PO NOW ONE Stop: 06/23/17 20:57 Last Admin: 06/23/17 21:09 Dose: 650 mg Acetaminophen (Tylenol) 650 mg PO Q4H PRN PRN Reason: Pain/Fever Last Admin: 06/24/17 06:26 Dose: 650 mg Apixaban (Eliquis) 2.5 mg PO BID [facility] Dextrose/Water (Dextrose 50% In Water) 25 ml IVPUSH ASDIRECTED ONE Stop: 06/23/17 21:50 Last Admin: 06/23/17 22:05 Dose: 25 ml Furosemide (Lasix) 20 mg IVPUSH NOW ONE Stop: 06/24/17 09:45 Last Admin: 06/24/17 10:04 Dose: 20 mg Furosemide (Lasix) 40 mg IV NOW ONE Stop: 06/25/17 08:12 Last Admin: 06/25/17 08:55 Dose: Not Given Furosemide (Lasix) 40 mg IVPUSH NOW ONE Stop: 06/25/17 14:20 Last Admin: 06/25/17 14:30 Dose: 40 mg Sodium Chloride (Normal Saline) 250 mls @ 999 mls/hr IV ONETIME ONE Stop: 06/23/17 19:18 Last Admin: 06/24/17 01:22 Dose: Not Given Sodium Chloride (Normal Saline) 500 mls @ 999 mls/hr IV ONETIME ONE Stop: 06/23/17 19:33 Last Admin: 06/23/17 19:13 Dose: 999 mls/hr Sodium Chloride (Normal Saline) 1,000 mls @ 100 mls/hr IV ONETIME ONE Stop: 06/24/17 06:54 Last Admin: 06/23/17 21:05 Dose: 100 mls/hr Ceftriaxone Sodium 2 gm/ (Sodium Chloride) 100 mls @ 100 mls/hr IV ONETIME ONE Stop: 06/23/17 23:13 Last Admin: 06/23/17 22:35 Dose: 100 mls/hr Sodium Chloride (Normal Saline) 500 mls @ 999 mls/hr IV ONETIME ONE Stop: 06/23/17 22:54 Last Admin: 06/24/17 01:23 Dose: Not Given Sodium Chloride (Normal Saline) 1,000 mls @ 999 mls/hr IV ONETIME ONE Stop: 06/23/17 23:24 Last Admin: 06/23/17 22:38 Dose: 999 mls/hr Levofloxacin/Dextrose 750 mg/ (Premix) 150 mls @ 100 mls/hr IV ONETIME ONE Stop: 06/24/17 02:39 Last Admin: 06/24/17 01:40 Dose: 100 mls/hr Sodium Chloride (Normal Saline) 1,000 mls @ 75 mls/hr IV ASDIRECTED [facility] Last Admin: 06/24/17 06:26 Dose: 75 mls/hr Piperacillin Sod/Tazobactam (Sod 4.5 gm/ Sodium Chloride) 100 mls @ 200 mls/hr IV ONETIME ONE Stop: 06/24/17 09:29 Last Admin: 06/24/17 09:34 Dose: 200 mls/hr Levofloxacin/Dextrose 750 mg/ (Premix) 150 mls @ 100 mls/hr IV Q24H [facility] Last Admin: 06/26/17 01:26 Dose: 100 mls/hr Sodium Chloride (Normal Saline) Confirm Administered Dose 100 mls @ as directed .ROUTE .STK-MED ONE Stop: 06/25/17 09:03 Last Admin: 06/25/17 09:27 Dose: 100 ml Magnesium Sulfate 2 gm/ Premix 50 mls @ 25 mls/hr IV ONETIME ONE Stop: 06/25/17 11:42 Last Admin: 06/25/17 10:52 Dose: 25 mls/hr Sodium Chloride (Normal Saline) Confirm Administered Dose 100 mls @ as directed .ROUTE .STK-MED ONE Stop: 06/25/17 11:44 Last Admin: 06/25/17 12:18 Dose: 100 ml Iopamidol (Isovue-300 (61%)) 150 ml IVPUSH ONETIME ONE Stop: 06/23/17 21:43 Last Admin: 06/23/17 21:58 Dose: 125 ml - Exam Quality Assessment: Supplemental Oxygen, DVT Prophylaxis General: Alert, Oriented, Cooperative, No Acute Distress HEENT: Pupils Equal, Pupils Reactive, EOMI, Mucous Membr. Moist/[place] Neck: Supple, Trachea Midline, No JVD Lungs: Decreased Breath Sounds, Rhonchi, Wheezing Cardiovascular: Regular Rhythm, Irregular Rhythm GI/Abdominal Exam: Normal Bowel Sounds, Soft, Non-Tender, No Organomegaly, No Distention, No Abnormal Bruit, No Mass, Pelvis Stable (Male) Exam: Deferred Extremities: Normal Inspection, Normal Range of Motion, Non-Tender, No Pedal Edema, Normal Capillary Refill Peripheral Pulses: 1+: Posterior Tibial (L), Posterior Tibial (R), Dorsalis Pedis (L), Dorsalis Pedis (R), 2+: Radial (L), Radial (R) Skin: Warm, Dry, Intact Neurological: No New Focal Deficit Psy/Mental Status: Alert, Normal Affect, Normal Mood - Problem List & Annotations (1) Fever SNOMED Code(s): 996766994 Code(s): R50.9 - FEVER, UNSPECIFIED Status: Acute Priority: High Current Visit: Yes Qualifiers: Fever type: unspecified Qualified Code(s): R50.9 - Fever, unspecified (2) Hypoxia SNOMED Code(s): 176853952 Code(s): R09.02 - HYPOXEMIA Status: Acute Priority: High Current Visit : Yes (3) Anemia SNOMED Code(s): 983131535 Code(s): D64.9 - ANEMIA, UNSPECIFIED Status: Acute Current Visit: Yes Qualifiers: Anemia type: iron deficiency Iron deficiency anemia type: unspecified iron deficiency Qualified Code(s): D50.9 - Iron deficiency anemia, unspecified (4) Pneumonia SNOMED Code(s): 375169343 Code(s): J18.9 - PNEUMONIA, UNSPECIFIED ORGANISM Status: Acute Priority: High Current Visit: Yes Qualifiers: Pneumonia type: due to unspecified organism Laterality: bilateral Lung location: lower lobe of lung Qualified Code(s): J18.9 - Pneumonia, unspecified organism (5) Aortic valve disorder SNOMED Code(s): 1225169 Code(s): I35.9 - NONRHEUMATIC AORTIC VALVE DISORDER, UNSPECIFIED Status: Chronic Priority: Low Current Visit: No (6) Atypical chest pain SNOMED Code(s): 978640005 Code(s): R07.89 - OTHER CHEST PAIN Status: Chronic Priority: Low Current Visit: No (7) BPH (benign prostatic hyperplasia) SNOMED Code(s): 077636707 Code(s): N40.0 - BENIGN PROSTATIC HYPERPLASIA WITHOUT LOWER URINRY TRACT SYMP Status: Chronic Priority: Low Current Visit: No Qualifiers: Lower urinary tract symptom presence: unspecified whether lower urinary tract symptoms present Qualified Code(s): N40.0 - Benign prostatic hyperplasia without lower urinary tract symptoms (8) Atrial fibrillation SNOMED Code(s): 26790694 Code(s): I48.91 - UNSPECIFIED ATRIAL FIBRILLATION Status: Chronic Priority: Medium Current Visit: No Qualifiers: Atrial fibrillation type: chronic Qualified Code(s): I48.2 - Chronic atrial fibrillation (9) CAD (coronary artery disease) SNOMED Code(s): 85469845 Code(s): I25.10 - ATHSCL HEART DISEASE OF [place] CORONARY ARTERY W/O ANG PCTRS Status: Chronic Priority: Low Current Visit: No Qualifiers: Coronary Disease-Associated Artery/Lesion type: unspecified vessel or lesion type [place] vs. transplanted heart: [place] heart (10) COPD (chronic obstructive pulmonary disease) SNOMED Code(s): 59395900 Code(s): J44.9 - CHRONIC OBSTRUCTIVE PULMONARY DISEASE, UNSPECIFIED Status : Chronic Priority: Medium Current Visit: No Qualifiers: Emphysema type: unspecified (11) Neutropenia SNOMED Code(s): 121410681 Code(s): D70.9 - NEUTROPENIA, UNSPECIFIED Status: Acute Priority: High Current Visit: Yes Qualifiers: Neutropenia type: unspecified Qualified Code(s): D70.9 - Neutropenia, unspecified - Problem List Review Problem List Initiated/Reviewed/Updated: Yes - My Orders Last 24 Hours: My Active Orders 06/27/17 05:11 BASIC METABOLIC PANEL,BMP [CHEM] AM CBC WITH AUTO DIFF [HEME] AM CRP [C-REACTIVE PROTEIN] [CHEM] AM MAGNESIUM [CHEM] AM PRO B-TYPE NATRIUR PEPT,BNPPRO [CHEM] DAILY 06/28/17 05:11 BASIC METABOLIC PANEL,BMP [CHEM] AM CBC WITH AUTO DIFF [HEME] AM CRP [C-REACTIVE PROTEIN] [CHEM] AM MAGNESIUM [CHEM] AM PRO B-TYPE NATRIUR PEPT,BNPPRO [CHEM] DAILY - Plan Plan:: I/P: Acute: PNA -Questionable -Fever (100.5) at SNF, weakness, lethargy -Hospitalized 04/23/17-04/30/17 with pneumonia -Saturations of 91 on room air -No leukocytosis, CRP 1.2 -Negative mycoplasma and influenza screen -Viral panel pending -Levaquin and Zosyn IV -O2 - titrate as needed -Xopenex -RT/IS/Acapella -Solu-medrol - 40mg Q12 -Repeat CXR (06/26/17) - improved aeration in left lung base, emphysematous change. -Sputum culture - pending CHF exacerbation -SOB on presentation -1-2+ pitting edema, mild rhonchi on physical exam, improved -Last echo 12/11/16--EF of 55-65%, mild AV stenosis, mild biatrial dilation, mildto moderate MVR, mild to mod elevated RV pressure at 47.9 -Repeat echo- pending -Lasix 20mg IVP daily, hold PO lasix -> switch to 40 mg IVP daily -Salt restriction diet -Diurese Anemia -Was present during last stay - received blood then -Iron studies on 04/25/17 showed Iron of 46, normal B12 and folate -Occult blood negative -Hgb 9.7-->9.3-->8.0-->10.2-->9.8 -Decrease eliquis dose from 5mg to 2.5mg BID -Transfuse 2 units today (06/25/17) lasix after Neutropenia, improving -Protective isolation --> discontinue -Received blood -Monitor with daily labs Chronic Type II DM - [place] meds, sliding scale, QID accuchecks, A1C on 04/25/17 9.6 A-fib on eliquis COPD/Hx of PNA Former Tobacco, 1970 HTN--stable HLD-lipid panel on 04/25/17 ok, cont statin History of CAD/PR CVA Depression Other: Admitted to medical floor on telemetry overnight, upgrade to ICU today GI/DVT prophylax- Teds and home eliquis Home meds Daily Labs PT/OT consult SW/CSM consult Patient is DNR status PCP is Dr. Turner with [facility] in [place] LOS >96 hrs due to slow response to treatment, neutropenia and aneamia
[2017-06-27] MEDS: Piperacillin/Tazobactam 4.5 GM in Sodium Chloride 0.9% 100 ML IV SCH ×3 (00:33→16:51)
[2017-06-27] MEDS: methylPREDNISolone Sodium Succinate 40 MG/1 ML SDV IVPUSH SCH (00:33)
[2017-06-27] MEDS: Albuterol/Ipratropium 3.0-0.5 MG/3 ML Neb Soln NEB PRN (00:54)
[2017-06-27] MEDS: Diltiazem IR 60 MG Tab PO SCH ×3 (01:36→16:59)
[2017-06-27] MEDS: Pantoprazole 40 MG Tab.CR PO SCH ×2 (06:18→16:52)
[2017-06-27] MEDS: metFORMIN 500 MG Tab PO SCH ×2 (06:18→16:52)
[2017-06-27] MEDS: Levalbuterol HCl 1.25 MG/3 ML Neb NEB SCH ×4 (06:28→21:16)
[2017-06-27] MEDS: Insulin Aspart 100 Units/ML 3 ML Pen SUBCUT SCH ×4 (06:49→21:11)
[2017-06-27] MEDS: DULoxetine 30 MG Cap PO SCH (09:00)
[2017-06-27] MEDS: traMADol 50 MG Tab PO SCH ×3 (09:01→21:08)
[2017-06-27] MEDS: Sennosides 8.6 MG Tab PO SCH (09:03)
[2017-06-27] MEDS: Docusate Sodium 100 MG Cap PO SCH ×2 (09:03→21:08)
[2017-06-27] MEDS: risperiDONE 0.25 MG Tab PO SCH (09:03)
[2017-06-27] MEDS: Donepezil 10 MG Tab PO SCH (09:04)
[2017-06-27] MEDS: Apixaban 5 MG Tab PO SCH ×2 (09:05→21:07)
[2017-06-27] MEDS: Magnesium Oxide 400 MG Tab PO SCH (09:05)
[2017-06-27] MEDS: Ferrous Sulfate 325 MG Tab PO SCH (09:05)
[2017-06-27] MEDS: Gabapentin 300 MG Cap PO SCH ×2 (09:06→21:09)
[2017-06-27] MEDS: Metoprolol Tartrate 50 MG Tab PO SCH ×2 (09:06→21:08)
[2017-06-27] MEDS: Furosemide 40 MG/4 ML VIAL IVPUSH SCH (09:07)
[2017-06-27] MEDS: Hypromellose 0.5% Ophth Soln 15 ML Bottle EYEBOTH SCH ×2 (09:07→21:06)
[2017-06-27] MEDS: Calcium Carbonate 500 MG Tab.Chew PO SCH (09:07)
[2017-06-27] MEDS: Tamsulosin 0.4 MG Cap.ER PO SCH (09:07)
[2017-06-27] MEDS: Saccharomyces Boulardii (Probiotic) 250 MG Cap PO SCH (09:08)
[2017-06-27] MEDS: Polyethylene Glycol 3350 Powder 17 GM Packet PO SCH (09:09)
[2017-06-27] MEDS: Insulin Detemir 100 Units/ML 3 ML Pen SUBCUT SCH ×2 (09:25→21:09)
[2017-06-27] MEDS: ORAJEL BUCCAL SCH ×2 (10:06→21:11)
[2017-06-27] MEDS ORDERED: methylPREDNISolone Sodium Succinate 40 MG/1 ML SDV IVPUSH SCH (14:00)
--- NOTE | 2017-06-27 14:55 | PCM.PN ---
- General Info Date of Service: 06/27/17 Admission Dx/Problem (Free Text): Pneumonia Subjective Update: In to see Brian today. Nurse reports he is slightly more confused than his baseline. She states that it does tend to come and go as he was discussing politics with her that were on the TV earlier and then suddenly was telling her about how he was taking a break from cleaning his truck. We will stop the steroid as that may be causing this. He reports that he hurts all over, which is his usual answer when asked about pain. He does appear to be improving and he is much less short of breath while talking with me now. He has been downgraded out of ICU status and moved to the floor. Functional Status: Reports: Pain Controlled, Tolerating Diet, Ambulating, Urinating, Incentive Spirometry - Review of Systems General: Reports: Weakness (improved ), Fatigue (improved ) HEENT: Reports: No Symptoms Pulmonary: Reports: Shortness of Breath, Pleuritic Chest Pain, Cough, Wheezing Cardiovascular: Reports: Dyspnea on Exertion Gastrointestinal: Denies: Abdominal Pain, Constipation, Decreased Appetite, Diarrhea, Nausea, Vomiting Genitourinary: Reports: No Symptoms Musculoskeletal: Reports: Other ("I hurt all over" ) Skin: Reports: No Symptoms Neurological: Reports: Confusion (worse than baseline today) Psychiatric: Reports: No Symptoms - Patient Data Vitals - Most Recent: Last Vital Signs Temp 98.8 F 06/27/17 12:00 Pulse 112 H 06/27/17 09:06 Resp 20 06/27/17 12:00 BP 109/68 06/27/17 12:00 Pulse Ox 93 L 06/27/17 12:00 Weight - Most Recent: 198 lb 4.8 oz I&O - Last 24 Hours: Intake & Output 06/26/17 06/27/17 06/27/17 22:59 06:59 14:59 Intake Total 560 590 120 Output Total 220 550 150 Balance 340 40 -30 Lab Results Last 24 Hours: Laboratory Results - last 24 hr 06/26/17 06/26/17 06/27/17 Range/Units 17:32 21:20 05:50 WBC 3.51 L (4.23-9.07) K/mm3 RBC 2.84 L (4.63-6.08) M/mm3 Hgb 9.5 L (13.7-17.5) gm/L Hct 29.1 L (40.1-51.0) % MCV 102.5 H (79.0-92.2) fl MCH 33.5 H (25.7-32.2) pg MCHC 32.6 (32.2-35.5) g/dl RDW Std Deviation 80.3 H (35.1-43.9) fL Plt Count 91 L (163-337) K/mm3 MPV 10.4 (9.4-12.3) fl Neut % (Auto) 80.3 H (34.0-67.9) % Lymph % (Auto) 11.1 L (21.8-53.1) % [place] % (Auto) 7.4 (5.3-12.2) % Eos % (Auto) 0 L (0.8-7.0) Baso % (Auto) 0.3 (0.1-1.2) % Neut # (Auto) 2.82 (1.78-5.38) K/mm3 Lymph # (Auto) 0.39 L (1.32-3.57) K/mm3 [place] # (Auto) 0.26 L (0.30-0.82) K/mm3 Eos # (Auto) 0.00 L (0.04-0.54) K/mm3 Baso # (Auto) 0.01 (0.01-0.08) K/mm3 Manual Slide Review Abnormal smear Sodium (136-145) mEq/L Potassium (3.5-5.1) mEq/L Chloride (98-107) mEq/L Carbon Dioxide (21-32) mEq/L Anion Gap (5-15) BUN (7-18) mg/dL Creatinine (0.7-1.3) mg/dL Est Cr Clr Drug Dosing mL/min Estimated GFR (MDRD) (>60) mL/min BUN/Creatinine Ratio (14-18) Glucose (83-115) mg/dL POC Glucose 266 H 302 H (83-110) mg/dL Calcium (8.5-10.1) mg/dL Magnesium (1.8-2.4) mg/dl C-Reactive Protein (<1.0) mg/dL NT-Pro-B Natriuret Pep (0-450) pg/mL 06/27/17 06/27/1706/27/18 Range/Units 05:50 05:50 06:20 WBC (4.23-9.07) K/mm3 RBC (4.63-6.08) M/mm3 Hgb (13.7-17.5) gm/L Hct (40.1-51.0) % MCV (79.0-92.2) fl MCH (25.7-32.2) pg MCHC (32.2-35.5) g/dl RDW Std Deviation (35.1-43.9) fL Plt Count (163-337) K/mm3 MPV (9.4-12.3) fl Neut % (Auto) (34.0-67.9) % Lymph % (Auto) (21.8-53.1) % [place] % (Auto) (5.3-12.2) % Eos % (Auto) (0.8-7.0) Baso % (Auto) (0.1-1.2) % Neut # (Auto) (1.78-5.38) K/mm3 Lymph # (Auto) (1.32-3.57) K/mm3 [place] # (Auto) (0.30-0.82) K/mm3 Eos # (Auto) (0.04-0.54) K/mm3 Baso # (Auto) (0.01-0.08) K/mm3 Manual Slide Review Sodium 140 (136-145) mEq/L Potassium 4.7 (3.5-5.1) mEq/L Chloride 102 (98-107) mEq/L Carbon Dioxide 32 (21-32) mEq/L Anion Gap 10.7 (5-15) BUN 24 H (7-18) mg/dL Creatinine 0.9 (0.7-1.3) mg/dL Est Cr Clr Drug Dosing 56.10 mL/min Estimated GFR (MDRD) > 60 (>60) mL/min BUN/Creatinine Ratio 26.7 H (14-18) Glucose 188 H (83-115) mg/dL POC Glucose 202 H (83-110) mg/dL Calcium 8.4 L (8.5-10.1) mg/dL Magnesium 1.9 (1.8-2.4) mg/dl C-Reactive Protein 1.6 H* (<1.0) mg/dL NT-Pro-B Natriuret Pep 3595 H (0-450) pg/mL 06/27/17 Range/Units 11:03 WBC (4.23-9.07) K/mm3 RBC (4.63-6.08) M/mm3 Hgb (13.7-17.5) gm/L Hct (40.1-51.0) % MCV (79.0-92.2) fl MCH (25.7-32.2) pg MCHC (32.2-35.5) g/dl RDW Std Deviation (35.1-43.9) fL Plt Count (163-337) K/mm3 MPV (9.4-12.3) fl Neut % (Auto) (34.0-67.9) % Lymph % (Auto) (21.8-53.1) % [place] % (Auto) (5.3-12.2) % Eos % (Auto) (0.8-7.0) Baso % (Auto) (0.1-1.2) % Neut # (Auto) (1.78-5.38) K/mm3 Lymph # (Auto) (1.32-3.57) K/mm3 [place] # (Auto) (0.30-0.82) K/mm3 Eos # (Auto) (0.04-0.54) K/mm3 Baso # (Auto) (0.01-0.08) K/mm3 Manual Slide Review Sodium (136-145) mEq/L Potassium (3.5-5.1) mEq/L Chloride (98-107) mEq/L Carbon Dioxide (21-32) mEq/L Anion Gap (5-15) BUN (7-18) mg/dL Creatinine (0.7-1.3) mg/dL Est Cr Clr Drug Dosing mL/min Estimated GFR (MDRD) (>60) mL/min BUN/Creatinine Ratio (14-18) Glucose (83-115) mg/dL POC Glucose 281 H (83-110) mg/dL Calcium (8.5-10.1) mg/dL Magnesium (1.8-2.4) mg/dl C-Reactive Protein (<1.0) mg/dL NT-Pro-B Natriuret Pep (0-450) pg/mL Greg Results Last 24 Hours: Microbiology 06/25/17 16:00 Gram Stain - Final Sputum - Expectorated Sputum Culture - Final Med Orders - Current: Current Medications Acetaminophen (Tylenol) 650 mg PO Q6H PRN PRN Reason: Pain/Fever Acetaminophen (Tylenol) 650 mg PO Q6H PRN PRN Reason: Pain/Fever Albuterol/Ipratropium (Duoneb 3.0-0.5 Mg/3 Ml) 3 ml NEB QIDRT PRN PRN Reason: Shortness of Breath Last Admin: 06/27/17 00:54 Dose: 3 ml Apixaban (Eliquis) 2.5 mg PO BID [facility] Last Admin: 06/27/17 09:05 Dose: 2.5 mg Artificial Tears (Isopto Tears 0.5% Ophth Soln) 0 ml EYEBOTH BID PRN PRN Reason: Dry Eyes Artificial Tears (Isopto Tears 0.5% Ophth Soln) 0 ml EYEBOTH BID [facility] Last Admin: 06/27/17 09:07 Dose: 1 drop Calcium Carbonate/Glycine (Tums) 500 mg PO DAILY [facility] Last Admin: 06/27/17 09:07 Dose: 500 mg Diltiazem HCl (Cardizem) 60 mg PO Q8H [facility] Last Admin: 06/27/17 09:06 Dose: 60 mg Docusate Sodium (Colace) 200 mg PO BID [facility] Last Admin: 06/27/17 09:03 Dose: 200 mg Donepezil HCl (Aricept) 10 mg PO DAILY [facility] Last Admin: 06/27/17 09:04 Dose: 10 mg Duloxetine HCl (Cymbalta) 60 mg PO DAILY [facility] Last Admin: 06/27/17 09:00 Dose: 60 mg Ferrous Sulfate (Ferrous Sulfate) 325 mg PO DAILY [facility] Last Admin: 06/27/17 09:05 Dose: 325 mg Furosemide (Lasix) 40 mg IVPUSH DAILY [facility] Last Admin: 06/27/17 09:07 Dose: 40 mg Gabapentin (Neurontin) 300 mg PO BID [facility] Last Admin: 06/27/17 09:06 Dose: 300 mg Hydralazine HCl (Apresoline) 10 mg IVPUSH Q6H PRN PRN Reason: Hypertension Piperacillin Sod/Tazobactam (Sod 4.5 gm/ Sodium Chloride) 100 mls @ 25 mls/hr IV Q8H [facility] Last Admin: 06/27/17 09:08 Dose: 25 mls/hr Insulin Aspart (Novolog) 0 unit SUBCUT QIDACANDBED [facility] PRN Reason: Protocol Last Admin: 06/27/17 11:28 Dose: 3 units Insulin Detemir (Levemir) 11 unit SUBCUT BID [facility] Last Admin: 06/27/17 09:25 Dose: 22 units Levalbuterol HCl (Xopenex) 1.25 mg NEB QIDRT [facility] Last Admin: 06/27/17 09:17 Dose: 1.25 mg Magnesium Oxide (Magnesium Oxide) 400 mg PO DAILY [facility] Last Admin: 06/27/17 09:05 Dose: 400 mg Metformin HCl (Glucophage) 250 mg PO BIDMEALS [facility] Last Admin: 06/27/17 06:18 Dose: 250 mg Methylprednisolone Sodium Succinate (Solu-Medrol) 40 mg IVPUSH Q24H [facility] Last Admin: 06/27/17 13:38 Dose: 40 mg Metoprolol Tartrate (Lopressor) 5 mg IVPUSH Q4H PRN PRN Reason: Tachycardia Last Admin: 06/26/17 12:45 Dose: 5 mg Metoprolol Tartrate (Lopressor) 50 mg PO Q12HR [facility] Last Admin: 06/27/17 09:06 Dose: 50 mg Pantoprazole Sodium (Protonix) 40 mg PO BIDAC [facility] Last Admin: 06/27/17 06:18 Dose: 40 mg Orajel 1 Applic 0 each BUCCAL BID [facility] Last Admin: 06/27/17 10:06 Dose: Not Given Polyethylene Glycol (Miralax) 17 gm PO DAILY [facility] Last Admin: 06/27/17 09:09 Dose: 17 gm Risperidone (Risperidal) 0.125 mg PO DAILY [facility] Last Admin: 06/27/17 09:03 Dose: 0.125 mg Saccharomyces Boulardii (Florastor) 250 mg PO DAILY [facility] Last Admin: 06/27/17 09:08 Dose: 250 mg Senna (Senna) 17.2 mg PO DAILY [facility] Last Admin: 06/27/17 09:03 Dose: 17.2 mg Sodium Chloride (Saline Flush) 10 ml FLUSH ASDIRECTED PRN PRN Reason: Keep Vein Open Last Admin: 06/23/17 18:59 Dose: 10 ml Sodium Chloride (Saline Flush) 10 ml FLUSH ONETIME PRN PRN Reason: IV FLUSH Last Admin: 06/23/17 21:58 Dose: 10 ml Tamsulosin HCl (Flomax) 0.4 mg PO DAILY [facility] Last Admin: 06/27/17 09:07 Dose: 0.4 mg Tramadol HCl (Ultram) 100 mg PO TID [facility] Last Admin: 06/27/17 14:08 Dose: 100 mg Discontinued Medications Acetaminophen (Tylenol) 650 mg PO NOW ONE Stop: 06/23/17 20:57 Last Admin: 06/23/17 21:09 Dose: 650 mg Acetaminophen (Tylenol) 650 mg PO Q4H PRN PRN Reason: Pain/Fever Last Admin: 06/24/17 06:26 Dose: 650 mg Apixaban (Eliquis) 2.5 mg PO BID [facility] Dextrose/Water (Dextrose 50% In Water) 25 ml IVPUSH ASDIRECTED ONE Stop: 06/23/17 21:50 Last Admin: 06/23/17 22:05 Dose: 25 ml Furosemide (Lasix) 20 mg IVPUSH NOW ONE Stop: 06/24/17 09:45 Last Admin: 06/24/17 10:04 Dose: 20 mg Furosemide (Lasix) 20 mg IVPUSH DAILY [facility] Last Admin: 06/26/17 09:21 Dose: 20 mg Furosemide (Lasix) 40 mg IV NOW ONE Stop: 06/25/17 08:12 Last Admin: 06/25/17 08:55 Dose: Not Given Furosemide (Lasix) 40 mg IVPUSH NOW ONE Stop: 06/25/17 14:20 Last Admin: 06/25/17 14:30 Dose: 40 mg Sodium Chloride (Normal Saline) 250 mls @ 999 mls/hr IV ONETIME ONE Stop: 06/23/17 19:18 Last Admin: 06/24/17 01:22 Dose: Not Given Sodium Chloride (Normal Saline) 500 mls @ 999 mls/hr IV ONETIME ONE Stop: 06/23/17 19:33 Last Admin: 06/23/17 19:13 Dose: 999 mls/hr Sodium Chloride (Normal Saline) 1,000 mls @ 100 mls/hr IV ONETIME ONE Stop: 06/24/17 06:54 Last Admin: 06/23/17 21:05 Dose: 100 mls/hr Ceftriaxone Sodium 2 gm/ (Sodium Chloride) 100 mls @ 100 mls/hr IV ONETIME ONE Stop: 06/23/17 23:13 Last Admin: 06/23/17 22:35 Dose: 100 mls/hr Sodium Chloride (Normal Saline) 500 mls @ 999 mls/hr IV ONETIME ONE Stop: 06/23/17 22:54 Last Admin: 06/24/17 01:23 Dose: Not Given Sodium Chloride (Normal Saline) 1,000 mls @ 999 mls/hr IV ONETIME ONE Stop: 06/23/17 23:24 Last Admin: 06/23/17 22:38 Dose: 999 mls/hr Levofloxacin/Dextrose 750 mg/ (Premix) 150 mls @ 100 mls/hr IV ONETIME ONE Stop: 06/24/17 02:39 Last Admin: 06/24/17 01:40 Dose: 100 mls/hr Sodium Chloride (Normal Saline) 1,000 mls @ 75 mls/hr IV ASDIRECTED [facility] Last Admin: 06/24/17 06:26 Dose: 75 mls/hr Piperacillin Sod/Tazobactam (Sod 4.5 gm/ Sodium Chloride) 100 mls @ 200 mls/hr IV ONETIME ONE Stop: 06/24/17 09:29 Last Admin: 06/24/17 09:34 Dose: 200 mls/hr Levofloxacin/Dextrose 750 mg/ (Premix) 150 mls @ 100 mls/hr IV Q24H [facility] Last Admin: 06/26/17 01:26 Dose: 100 mls/hr Sodium Chloride (Normal Saline) Confirm Administered Dose 100 mls @ as directed .ROUTE .STK-MED ONE Stop: 06/25/17 09:03 Last Admin: 06/25/17 09:27 Dose: 100 ml Magnesium Sulfate 2 gm/ Premix 50 mls @ 25 mls/hr IV ONETIME ONE Stop: 06/25/17 11:42 Last Admin: 06/25/17 10:52 Dose: 25 mls/hr Sodium Chloride (Normal Saline) Confirm Administered Dose 100 mls @ as directed .ROUTE .STK-MED ONE Stop: 06/25/17 11:44 Last Admin: 06/25/17 12:18 Dose: 100 ml Iopamidol (Isovue-300 (61%)) 150 ml IVPUSH ONETIME ONE Stop: 06/23/17 21:43 Last Admin: 06/23/17 21:58 Dose: 125 ml Methylprednisolone Sodium Succinate (Solu-Medrol) 40 mg IVPUSH Q12H [facility] Last Admin: 06/27/17 00:33 Dose: 40 mg - Exam Quality Assessment: Supplemental Oxygen, DVT Prophylaxis General: Alert, Cooperative, No Acute Distress HEENT: Pupils Equal, Pupils Reactive, EOMI, Mucous Membr. Moist/[place] Neck: Supple, Trachea Midline Lungs: Normal Respiratory Effort, Decreased Breath Sounds Cardiovascular: Regular Rate, Irregular Rhythm GI/Abdominal Exam: Normal Bowel Sounds, Soft, Non-Tender, No Organomegaly, No Distention, No Abnormal Bruit, No Mass, Pelvis Stable (Male) Exam: Deferred Extremities: Normal Range of Motion, Non-Tender, Normal Capillary Refill, Pedal Edema Peripheral Pulses: 1+: Posterior Tibial (L), Posterior Tibial (R), Dorsalis Pedis (L), Dorsalis Pedis (R), 2+: Radial (L), Radial (R) Skin: Warm, Dry, Intact Neurological: No New Focal Deficit Psy/Mental Status: Alert, Normal Affect, Normal Mood - Problem List & Annotations (1) Fever SNOMED Code(s): 078168355 Code(s): R50.9 - FEVER, UNSPECIFIED Status: Acute Priority: High Current Visit: Yes Qualifiers: Fever type: unspecified Qualified Code(s): R50.9 - Fever, unspecified (2) Hypoxia SNOMED Code(s): 504801322 Code(s): R09.02 - HYPOXEMIA Status: Acute Priority: High Current Visit : Yes (3) Anemia SNOMED Code(s): 901025516 Code(s): D64.9 - ANEMIA, UNSPECIFIED Status: Acute Current Visit: Yes Qualifiers: Anemia type: iron deficiency Iron deficiency anemia type: unspecified iron deficiency Qualified Code(s): D50.9 - Iron deficiency anemia, unspecified (4) Pneumonia SNOMED Code(s): 497544912 Code(s): J18.9 - PNEUMONIA, UNSPECIFIED ORGANISM Status: Acute Priority: High Current Visit: Yes Qualifiers: Pneumonia type: due to unspecified organism Laterality: bilateral Lung location: lower lobe of lung Qualified Code(s): J18.9 - Pneumonia, unspecified organism (5) Aortic valve disorder SNOMED Code(s): 5295838 Code(s): I35.9 - NONRHEUMATIC AORTIC VALVE DISORDER, UNSPECIFIED Status: Chronic Priority: Low Current Visit: No (6) Atypical chest pain SNOMED Code(s): 873407456 Code(s): R07.89 - OTHER CHEST PAIN Status: Chronic Priority: Low Current Visit: No (7) BPH (benign prostatic hyperplasia) SNOMED Code(s): 547298781 Code(s): N40.0 - BENIGN PROSTATIC HYPERPLASIA WITHOUT LOWER URINRY TRACT SYMP Status: Chronic Priority: Low Current Visit: No Qualifiers: Lower urinary tract symptom presence: unspecified whether lower urinary tract symptoms present Qualified Code(s): N40.0 - Benign prostatic hyperplasia without lower urinary tract symptoms (8) Atrial fibrillation SNOMED Code(s): 64157875 Code(s): I48.91 - UNSPECIFIED ATRIAL FIBRILLATION Status: Chronic Priority: Medium Current Visit: No Qualifiers: Atrial fibrillation type: chronic Qualified Code(s): I48.2 - Chronic atrial fibrillation (9) CAD (coronary artery disease) SNOMED Code(s): 62153814 Code(s): I25.10 - ATHSCL HEART DISEASE OF [place] CORONARY ARTERY W/O ANG PCTRS Status: Chronic Priority: Low Current Visit: No Qualifiers: Coronary Disease-Associated Artery/Lesion type: unspecified vessel or lesion type [place] vs. transplanted heart: [place] heart (10) COPD (chronic obstructive pulmonary disease) SNOMED Code(s): 83268692 Code(s): J44.9 - CHRONIC OBSTRUCTIVE PULMONARY DISEASE, UNSPECIFIED Status : Chronic Priority: Medium Current Visit: No Qualifiers: Emphysema type: unspecified (11) Neutropenia SNOMED Code(s): 788067666 Code(s): D70.9 - NEUTROPENIA, UNSPECIFIED Status: Acute Priority: High Current Visit: Yes Qualifiers: Neutropenia type: unspecified Qualified Code(s): D70.9 - Neutropenia, unspecified - Problem List Review Problem List Initiated/Reviewed/Updated: Yes - My Orders Last 24 Hours: My Active Orders 06/26/17 17:12 Consult to Spiritual Care [CONS] Routine 06/26/17 17:56 Communication Order [RC] ASDIRECTED 06/27/17 09:00 Furosemide [Lasix] 40 mg IVPUSH DAILY 06/27/17 14:00 methylPREDNISolone Sod Succ [Solu-MEDROL] 40 mg IVPUSH Q24H 06/28/17 05:11 BASIC METABOLIC PANEL,BMP [CHEM] AM CBC WITH AUTO DIFF [HEME] AM CRP [C-REACTIVE PROTEIN] [CHEM] AM MAGNESIUM [CHEM] AM PRO B-TYPE NATRIUR PEPT,BNPPRO [CHEM] DAILY - Plan Plan:: I/P: Acute: PNA -Questionable -Fever (100.5) at SNF, weakness, lethargy -Hospitalized 04/23/17-04/30/17 with pneumonia -Saturations of 91 on room air -No leukocytosis, CRP 1.2-->4.0-->2.7-->1.6 -Negative mycoplasma and influenza screen -Viral panel pending -Levaquin and Zosyn IV-->discontinue levaquin -O2 - titrate as needed -Xopenex -RT/IS/Acapella -Solu-medrol - 40mg Q12 --> decrease to 40mg Q24hr-->stop -Repeat CXR (06/26/17) - improved aeration in left lung base, emphysematous change. -Sputum culture - negative CHF exacerbation -SOB on presentation -1-2+ pitting edema, mild rhonchi on physical exam, improved -Last echo 12/11/16--EF of 55-65%, mild AV stenosis, mild biatrial dilation, mildto moderate MVR, mild to mod elevated RV pressure at 47.9 -Repeat echo (06/25/17) - LVEF 60-65% -Normal LV systolic function -Right ventricular size is mildly enlarged -Moderate aortic valve stenosis -At least moderate mitral valve regurg -Right ventricular systolic pressure is moderately elevated -Inferior vena cava is dilated with respiratory size variation greater than 50% -No regional wall motion abnormalities -Mild biatrial dilation -Atrial fibrillation -No significant change from 12/11/16. -Lasix 20mg IVP daily, hold PO lasix -> switch to 40 mg IVP daily -Salt restriction diet -Diurese Anemia -Was present during last stay - received blood then -Iron studies on 04/25/17 showed Iron of 46, normal B12 and folate -Occult blood negative -Hgb 9.7-->9.3-->8.0-->10.2-->9.8 -Decrease eliquis dose from 5mg to 2.5mg BID -Transfused 2 units (06/25/17) lasix after -Suggest f/u with Dr. Diaz outpatient as he has seen him before for this Neutropenia, improving -Protective isolation --> discontinue -Received blood -Monitor with daily labs Chronic Type II DM - Danyelle meds, sliding scale, QID accuchecks, A1C on 04/25/17 9.6 A-fib on eliquis COPD/Hx of PNA Former Tobacco, 1969 HTN--stable HLD-lipid panel on 04/25/17 ok, cont statin History of CAD/AK CVA Depression Other: Admitted to medical floor on telemetry overnight, upgrade to ICU --> decrease to medical floor status GI/DVT prophylax- Teds and home eliquis Home meds Daily Labs PT/OT consult SW/CSM consult Patient is DNR status PCP is Dr. Turner with [facility] in [place] LOS >96 hrs due to slow response to treatment, neutropenia and aneamia
[2017-06-28] MEDS: Diltiazem IR 60 MG Tab PO SCH ×3 (02:17→17:44)
[2017-06-28] MEDS: Piperacillin/Tazobactam 4.5 GM in Sodium Chloride 0.9% 100 ML IV SCH ×3 (02:17→16:46)
[2017-06-28] MEDS: Levalbuterol HCl 1.25 MG/3 ML Neb NEB SCH ×2 (05:57→10:44)
[2017-06-28] MEDS: Pantoprazole 40 MG Tab.CR PO SCH ×2 (06:12→15:09)
[2017-06-28] MEDS: metFORMIN 500 MG Tab PO SCH ×2 (06:12→16:46)
[2017-06-28] MEDS: Insulin Aspart 100 Units/ML 3 ML Pen SUBCUT SCH ×4 (06:12→21:32)
[2017-06-28] MEDS: Polyethylene Glycol 3350 Powder 17 GM Packet PO SCH (09:21)
[2017-06-28] MEDS: Apixaban 5 MG Tab PO SCH ×2 (09:22→20:51)
[2017-06-28] MEDS: Calcium Carbonate 500 MG Tab.Chew PO SCH (09:23)
[2017-06-28] MEDS: DULoxetine 30 MG Cap PO SCH (09:24)
[2017-06-28] MEDS: Ferrous Sulfate 325 MG Tab PO SCH (09:24)
[2017-06-28] MEDS: Tamsulosin 0.4 MG Cap.ER PO SCH (09:24)
[2017-06-28] MEDS: traMADol 50 MG Tab PO SCH ×3 (09:24→20:54)
[2017-06-28] MEDS: Docusate Sodium 100 MG Cap PO SCH ×2 (09:24→20:51)
[2017-06-28] MEDS: Magnesium Oxide 400 MG Tab PO SCH (09:25)
[2017-06-28] MEDS: Sennosides 8.6 MG Tab PO SCH (09:25)
[2017-06-28] MEDS: Metoprolol Tartrate 50 MG Tab PO SCH ×2 (09:25→20:56)
[2017-06-28] MEDS: Gabapentin 300 MG Cap PO SCH ×2 (09:26→20:53)
[2017-06-28] MEDS: risperiDONE 0.25 MG Tab PO SCH (09:26)
[2017-06-28] MEDS: Donepezil 10 MG Tab PO SCH (09:26)
[2017-06-28] MEDS: Saccharomyces Boulardii (Probiotic) 250 MG Cap PO SCH (09:28)
[2017-06-28] MEDS: Hypromellose 0.5% Ophth Soln 15 ML Bottle EYEBOTH SCH ×2 (09:28→20:53)
[2017-06-28] MEDS: Furosemide 40 MG/4 ML VIAL IVPUSH SCH (09:29)
[2017-06-28] MEDS: Insulin Detemir 100 Units/ML 3 ML Pen SUBCUT SCH ×2 (09:30→21:28)
[2017-06-28] MEDS: ORAJEL BUCCAL SCH ×2 (09:31→21:29)
[2017-06-28] MEDS ORDERED: Levalbuterol HCl 1.25 MG/3 ML Neb NEB PRN ×2 (11:15→15:06)
--- NOTE | 2017-06-28 15:14 | PCM.PN ---
- General Info Date of Service: 06/28/17 Admission Dx/Problem (Free Text): Pneumonia Subjective Update: Into see Gino today. He is sitting up in a chair. He still somewhat confused although he is much better than yesterday. His steroid has been stopped and we suspect this may have been the cause. His BNP is elevated and I have added more Lasix tonight. White count and hemoglobin have been improving. He states his shortness of breath feels like it's back to baseline. He reports he hurts all over, which is his normal response to this question. Functional Status: Reports: Pain Controlled, Tolerating Diet, Urinating, Incentive Spirometry. Denies: New Symptoms - Review of Systems General: Reports: Weakness (back to near baseline ) HEENT: Reports: No Symptoms Pulmonary: Reports: Shortness of Breath (baseline ), Pleuritic Chest Pain ( baseline), Cough Cardiovascular: Reports: Dyspnea on Exertion, Lightheadedness. Denies: Chest Pain Gastrointestinal: Reports: No Symptoms. Denies: Abdominal Pain, Constipation, Diarrhea, Nausea, Vomiting Genitourinary: Reports: No Symptoms. Denies: Dysuria, Frequency, Burning, Pain Musculoskeletal: Reports: Other (Hurts all over - which is baseline) Skin: Reports: No Symptoms Neurological: Reports: Confusion (improving ). Denies: Headache, Numbness, Seizure, Syncope, Trouble Speaking Psychiatric: Reports: No Symptoms - Patient Data Vitals - Most Recent: Last Vital Signs Temp 97.9 F 06/28/17 06:11 Pulse 80 06/28/17 09:25 Resp 20 06/28/17 06:11 BP 102/73 06/28/17 09:25 Pulse Ox 98 06/28/17 10:47 Weight - Most Recent: 190 lb 8 oz I&O - Last 24 Hours: Intake & Output 06/28/17 06/28/17 06/28/17 06:59 14:59 22:59 Intake Total 400 120 Balance 400 120 Lab Results Last 24 Hours: Laboratory Results - last 24 hr 06/27/17 06/27/17 06/28/17 Range/Units 16:26 20:53 05:53 WBC 3.61 L (4.23-9.07) K/mm3 RBC 3.15 L (4.63-6.08) M/mm3 Hgb 10.5 L (13.7-17.5) gm/L Hct 32.6 L (40.1-51.0) % MCV 103.5 H (79.0-92.2) fl MCH 33.3 H (25.7-32.2) pg MCHC 32.2 (32.2-35.5) g/dl RDW Std Deviation 79.8 H (35.1-43.9) fL Plt Count 86 L (163-337) K/mm3 MPV 11.6 (9.4-12.3) fl Neut % (Auto) 59.8 (34.0-67.9) % Lymph % (Auto) 24.7 (21.8-53.1) % [place] % (Auto) 13.0 H (5.3-12.2) % Eos % (Auto) 0 L (0.8-7.0) Baso % (Auto) 0.6 (0.1-1.2) % Neut # (Auto) 2.16 (1.78-5.38) K/mm3 Lymph # (Auto) 0.89 L (1.32-3.57) K/mm3 [place] # (Auto) 0.47 (0.30-0.82) K/mm3 Eos # (Auto) 0.00 L (0.04-0.54) K/mm3 Baso # (Auto) 0.02 (0.01-0.08) K/mm3 Manual Slide Review Abnormal smear Sodium (136-145) mEq/L Potassium (3.5-5.1) mEq/L Chloride (98-107) mEq/L Carbon Dioxide (21-32) mEq/L Anion Gap (5-15) BUN (7-18) mg/dL Creatinine (0.7-1.3) mg/dL Est Cr Clr Drug Dosing mL/min Estimated GFR (MDRD) (>60) mL/min BUN/Creatinine Ratio (14-18) Glucose (83-115) mg/dL POC Glucose 165 H 223 H (83-110) mg/dL Calcium (8.5-10.1) mg/dL Magnesium (1.8-2.4) mg/dl C-Reactive Protein (<1.0) mg/dL NT-Pro-B Natriuret Pep (0-450) pg/mL 06/28/17 06/28/1706/28/18 Range/Units 05:53 05:53 05:56 WBC (4.23-9.07) K/mm3 RBC (4.63-6.08) M/mm3 Hgb (13.7-17.5) gm/L Hct (40.1-51.0) % MCV (79.0-92.2) fl MCH (25.7-32.2) pg MCHC (32.2-35.5) g/dl RDW Std Deviation (35.1-43.9) fL Plt Count (163-337) K/mm3 MPV (9.4-12.3) fl Neut % (Auto) (34.0-67.9) % Lymph % (Auto) (21.8-53.1) % [place] % (Auto) (5.3-12.2) % Eos % (Auto) (0.8-7.0) Baso % (Auto) (0.1-1.2) % Neut # (Auto) (1.78-5.38) K/mm3 Lymph # (Auto) (1.32-3.57) K/mm3 [place] # (Auto) (0.30-0.82) K/mm3 Eos # (Auto) (0.04-0.54) K/mm3 Baso # (Auto) (0.01-0.08) K/mm3 Manual Slide Review Sodium 138 (136-145) mEq/L Potassium 4.1 (3.5-5.1) mEq/L Chloride 100 (98-107) mEq/L Carbon Dioxide 33 H (21-32) mEq/L Anion Gap 9.1 (5-15) BUN 25 H (7-18) mg/dL Creatinine 0.9 (0.7-1.3) mg/dL Est Cr Clr Drug Dosing 56.10 mL/min Estimated GFR (MDRD) > 60 (>60) mL/min BUN/Creatinine Ratio 27.8 H (14-18) Glucose 96 (83-115) mg/dL POC Glucose 97 (83-110) mg/dL Calcium 8.8 (8.5-10.1) mg/dL Magnesium 1.9 (1.8-2.4) mg/dl C-Reactive Protein 0.6 (<1.0) mg/dL NT-Pro-B Natriuret Pep 5051 H (0-450) pg/mL 06/28/17 Range/Units 11:04 WBC (4.23-9.07) K/mm3 RBC (4.63-6.08) M/mm3 Hgb (13.7-17.5) gm/L Hct (40.1-51.0) % MCV (79.0-92.2) fl MCH (25.7-32.2) pg MCHC (32.2-35.5) g/dl RDW Std Deviation (35.1-43.9) fL Plt Count (163-337) K/mm3 MPV (9.4-12.3) fl Neut % (Auto) (34.0-67.9) % Lymph % (Auto) (21.8-53.1) % [place] % (Auto) (5.3-12.2) % Eos % (Auto) (0.8-7.0) Baso % (Auto) (0.1-1.2) % Neut # (Auto) (1.78-5.38) K/mm3 Lymph # (Auto) (1.32-3.57) K/mm3 [place] # (Auto) (0.30-0.82) K/mm3 Eos # (Auto) (0.04-0.54) K/mm3 Baso # (Auto) (0.01-0.08) K/mm3 Manual Slide Review Sodium (136-145) mEq/L Potassium (3.5-5.1) mEq/L Chloride (98-107) mEq/L Carbon Dioxide (21-32) mEq/L Anion Gap (5-15) BUN (7-18) mg/dL Creatinine (0.7-1.3) mg/dL Est Cr Clr Drug Dosing mL/min Estimated GFR (MDRD) (>60) mL/min BUN/Creatinine Ratio (14-18) Glucose (83-115) mg/dL POC Glucose 100 (83-110) mg/dL Calcium (8.5-10.1) mg/dL Magnesium (1.8-2.4) mg/dl C-Reactive Protein (<1.0) mg/dL NT-Pro-B Natriuret Pep (0-450) pg/mL Greg Results Last 24 Hours: Microbiology 06/25/17 16:00 Gram Stain - Final Sputum - Expectorated Sputum Culture - Final Med Orders - Current: Current Medications Acetaminophen (Tylenol) 650 mg PO Q6H PRN PRN Reason: Pain/Fever Acetaminophen (Tylenol) 650 mg PO Q6H PRN PRN Reason: Pain/Fever Albuterol/Ipratropium (Duoneb 3.0-0.5 Mg/3 Ml) 3 ml NEB QIDRT PRN PRN Reason: Shortness of Breath Last Admin: 06/27/17 00:54 Dose: 3 ml Apixaban (Eliquis) 2.5 mg PO BID [facility] Last Admin: 06/28/17 09:22 Dose: 2.5 mg Artificial Tears (Isopto Tears 0.5% Ophth Soln) 0 ml EYEBOTH BID PRN PRN Reason: Dry Eyes Artificial Tears (Isopto Tears 0.5% Ophth Soln) 0 ml EYEBOTH BID [facility] Last Admin: 06/28/17 09:28 Dose: 1 drop Calcium Carbonate/Glycine (Tums) 500 mg PO DAILY [facility] Last Admin: 06/28/17 09:23 Dose: 500 mg Diltiazem HCl (Cardizem) 60 mg PO Q8H [facility] Last Admin: 06/28/17 09:25 Dose: 60 mg Docusate Sodium (Colace) 200 mg PO BID [facility] Last Admin: 06/28/17 09:24 Dose: 200 mg Donepezil HCl (Aricept) 10 mg PO DAILY [facility] Last Admin: 06/28/17 09:26 Dose: 10 mg Duloxetine HCl (Cymbalta) 60 mg PO DAILY [facility] Last Admin: 06/28/17 09:24 Dose: 60 mg Ferrous Sulfate (Ferrous Sulfate) 325 mg PO DAILY [facility] Last Admin: 06/28/17 09:24 Dose: 325 mg Furosemide (Lasix) 20 mg IVPUSH DAILY@1600 [facility] Furosemide (Lasix) 40 mg IVPUSH DAILY@0600 [facility] Gabapentin (Neurontin) 300 mg PO BID [facility] Last Admin: 06/28/17 09:26 Dose: 300 mg Hydralazine HCl (Apresoline) 10 mg IVPUSH Q6H PRN PRN Reason: Hypertension Piperacillin Sod/Tazobactam (Sod 4.5 gm/ Sodium Chloride) 100 mls @ 25 mls/hr IV Q8H [facility] Last Admin: 06/28/17 09:31 Dose: 25 mls/hr Insulin Aspart (Novolog) 0 unit SUBCUT QIDACANDBED [facility] PRN Reason: Protocol Last Admin: 06/28/17 11:50 Dose: Not Given Insulin Detemir (Levemir) 11 unit SUBCUT BID [facility] Last Admin: 06/28/17 09:30 Dose: 11 units Levalbuterol HCl (Xopenex) 1.25 mg NEB QIDRT PRN PRN Reason: Shortness of Breath Magnesium Oxide (Magnesium Oxide) 400 mg PO DAILY [facility] Last Admin: 06/28/17 09:25 Dose: 400 mg Metformin HCl (Glucophage) 250 mg PO BIDMEALS [facility] Last Admin: 06/28/17 06:12 Dose: 250 mg Metoprolol Tartrate (Lopressor) 5 mg IVPUSH Q4H PRN PRN Reason: Tachycardia Last Admin: 06/26/17 12:45 Dose: 5 mg Metoprolol Tartrate (Lopressor) 50 mg PO Q12HR [facility] Last Admin: 06/28/17 09:25 Dose: 50 mg Pantoprazole Sodium (Protonix) 40 mg PO BIDAC [facility] Last Admin: 06/28/17 15:09 Dose: 40 mg Orajel 1 Applic 0 each BUCCAL BID [facility] Last Admin: 06/28/17 09:31 Dose: Not Given Polyethylene Glycol (Miralax) 17 gm PO DAILY [facility] Last Admin: 06/28/17 09:21 Dose: 17 gm Risperidone (Risperidal) 0.125 mg PO DAILY [facility] Last Admin: 06/28/17 09:26 Dose: 0.125 mg Saccharomyces Boulardii (Florastor) 250 mg PO DAILY [facility] Last Admin: 06/28/17 09:28 Dose: 250 mg Senna (Senna) 17.2 mg PO DAILY [facility] Last Admin: 06/28/17 09:25 Dose: 17.2 mg Sodium Chloride (Saline Flush) 10 ml FLUSH ASDIRECTED PRN PRN Reason: Keep Vein Open Last Admin: 06/23/17 18:59 Dose: 10 ml Sodium Chloride (Saline Flush) 10 ml FLUSH ONETIME PRN PRN Reason: IV FLUSH Last Admin: 06/23/17 21:58 Dose: 10 ml Tamsulosin HCl (Flomax) 0.4 mg PO DAILY [facility] Last Admin: 06/28/17 09:24 Dose: 0.4 mg Tramadol HCl (Ultram) 100 mg PO TID [facility] Last Admin: 06/28/17 15:09 Dose: 100 mg Discontinued Medications Acetaminophen (Tylenol) 650 mg PO NOW ONE Stop: 06/23/17 20:57 Last Admin: 06/23/17 21:09 Dose: 650 mg Acetaminophen (Tylenol) 650 mg PO Q4H PRN PRN Reason: Pain/Fever Last Admin: 06/24/17 06:26 Dose: 650 mg Apixaban (Eliquis) 2.5 mg PO BID [facility] Dextrose/Water (Dextrose 50% In Water) 25 ml IVPUSH ASDIRECTED ONE Stop: 06/23/17 21:50 Last Admin: 06/23/17 22:05 Dose: 25 ml Furosemide (Lasix) 20 mg IVPUSH NOW ONE Stop: 06/24/17 09:45 Last Admin: 06/24/17 10:04 Dose: 20 mg Furosemide (Lasix) 20 mg IVPUSH DAILY [facility] Last Admin: 06/26/17 09:21 Dose: 20 mg Furosemide (Lasix) 40 mg IV NOW ONE Stop: 06/25/17 08:12 Last Admin: 06/25/17 08:55 Dose: Not Given Furosemide (Lasix) 40 mg IVPUSH NOW ONE Stop: 06/25/17 14:20 Last Admin: 06/25/17 14:30 Dose: 40 mg Furosemide (Lasix) 40 mg IVPUSH DAILY [facility] Last Admin: 06/28/17 09:29 Dose: 40 mg Sodium Chloride (Normal Saline) 250 mls @ 999 mls/hr IV ONETIME ONE Stop: 06/23/17 19:18 Last Admin: 06/24/17 01:22 Dose: Not Given Sodium Chloride (Normal Saline) 500 mls @ 999 mls/hr IV ONETIME ONE Stop: 06/23/17 19:33 Last Admin: 06/23/17 19:13 Dose: 999 mls/hr Sodium Chloride (Normal Saline) 1,000 mls @ 100 mls/hr IV ONETIME ONE Stop: 06/24/17 06:54 Last Admin: 06/23/17 21:05 Dose: 100 mls/hr Ceftriaxone Sodium 2 gm/ (Sodium Chloride) 100 mls @ 100 mls/hr IV ONETIME ONE Stop: 06/23/17 23:13 Last Admin: 06/23/17 22:35 Dose: 100 mls/hr Sodium Chloride (Normal Saline) 500 mls @ 999 mls/hr IV ONETIME ONE Stop: 06/23/17 22:54 Last Admin: 06/24/17 01:23 Dose: Not Given Sodium Chloride (Normal Saline) 1,000 mls @ 999 mls/hr IV ONETIME ONE Stop: 06/23/17 23:24 Last Admin: 06/23/17 22:38 Dose: 999 mls/hr Levofloxacin/Dextrose 750 mg/ (Premix) 150 mls @ 100 mls/hr IV ONETIME ONE Stop: 06/24/17 02:39 Last Admin: 06/24/17 01:40 Dose: 100 mls/hr Sodium Chloride (Normal Saline) 1,000 mls @ 75 mls/hr IV ASDIRECTED [facility] Last Admin: 06/24/17 06:26 Dose: 75 mls/hr Piperacillin Sod/Tazobactam (Sod 4.5 gm/ Sodium Chloride) 100 mls @ 200 mls/hr IV ONETIME ONE Stop: 06/24/17 09:29 Last Admin: 06/24/17 09:34 Dose: 200 mls/hr Levofloxacin/Dextrose 750 mg/ (Premix) 150 mls @ 100 mls/hr IV Q24H [facility] Last Admin: 06/26/17 01:26 Dose: 100 mls/hr Sodium Chloride (Normal Saline) Confirm Administered Dose 100 mls @ as directed .ROUTE .STK-MED ONE Stop: 06/25/17 09:03 Last Admin: 06/25/17 09:27 Dose: 100 ml Magnesium Sulfate 2 gm/ Premix 50 mls @ 25 mls/hr IV ONETIME ONE Stop: 06/25/17 11:42 Last Admin: 06/25/17 10:52 Dose: 25 mls/hr Sodium Chloride (Normal Saline) Confirm Administered Dose 100 mls @ as directed .ROUTE .STK-MED ONE Stop: 06/25/17 11:44 Last Admin: 06/25/17 12:18 Dose: 100 ml Iopamidol (Isovue-300 (61%)) 150 ml IVPUSH ONETIME ONE Stop: 06/23/17 21:43 Last Admin: 06/23/17 21:58 Dose: 125 ml Levalbuterol HCl (Xopenex) 1.25 mg NEB QIDRT [facility] Last Admin: 06/28/17 10:44 Dose: 1.25 mg Levalbuterol HCl (Xopenex) 1.25 mg NEB QIDRT PRN PRN Reason: SOB/Wheezing Methylprednisolone Sodium Succinate (Solu-Medrol) 40 mg IVPUSH Q12H [facility] Last Admin: 06/27/17 00:33 Dose: 40 mg Methylprednisolone Sodium Succinate (Solu-Medrol) 40 mg IVPUSH Q24H [facility] Last Admin: 06/27/17 13:38 Dose: 40 mg - Exam Quality Assessment: Supplemental Oxygen, DVT Prophylaxis General: Alert, Cooperative, No Acute Distress HEENT: Pupils Equal, Pupils Reactive, EOMI, Mucous Membr. Moist/[place] Neck: Supple, Trachea Midline Lungs: Normal Respiratory Effort, Decreased Breath Sounds, Rhonchi, Wheezing Cardiovascular: Regular Rate, Irregular Rhythm GI/Abdominal Exam: Normal Bowel Sounds, Soft, Non-Tender, No Organomegaly, No Distention, No Abnormal Bruit, No Mass, Pelvis Stable (Male) Exam: Deferred Extremities: Normal Range of Motion, Non-Tender, Normal Capillary Refill, Pedal Edema (trace to 1+ - improving ) Peripheral Pulses: 1+: Radial (L), Radial (R), 2+: Posterior Tibial (L), Posterior Tibial (R), Dorsalis Pedis (L), Dorsalis Pedis (R) Skin: Warm, Dry, Intact Neurological: No New Focal Deficit Psy/Mental Status: Alert, Normal Affect, Normal Mood - Problem List & Annotations (1) Fever SNOMED Code(s): 875678513 Code(s): R50.9 - FEVER, UNSPECIFIED Status: Resolved Priority: High Current Visit: Yes Qualifiers: Fever type: unspecified Qualified Code(s): R50.9 - Fever, unspecified (2) Hypoxia SNOMED Code(s): 616989505 Code(s): R09.02 - HYPOXEMIA Status: Acute Priority: High Current Visit : Yes (3) Anemia SNOMED Code(s): 140670104 Code(s): D64.9 - ANEMIA, UNSPECIFIED Status: Acute Current Visit: Yes Qualifiers: Anemia type: iron deficiency Iron deficiency anemia type: unspecified iron deficiency Qualified Code(s): D50.9 - Iron deficiency anemia, unspecified (4) Pneumonia SNOMED Code(s): 521872083 Code(s): J18.9 - PNEUMONIA, UNSPECIFIED ORGANISM Status: Acute Priority: High Current Visit: Yes Qualifiers: Pneumonia type: due to unspecified organism Laterality: bilateral Lung location: lower lobe of lung Qualified Code(s): J18.9 - Pneumonia, unspecified organism (5) Aortic valve disorder SNOMED Code(s): 8053895 Code(s): I35.9 - NONRHEUMATIC AORTIC VALVE DISORDER, UNSPECIFIED Status: Chronic Priority: Low Current Visit: No (6) Atypical chest pain SNOMED Code(s): 350087726 Code(s): R07.89 - OTHER CHEST PAIN Status: Chronic Priority: Low Current Visit: No (7) BPH (benign prostatic hyperplasia) SNOMED Code(s): 038674665 Code(s): N40.0 - BENIGN PROSTATIC HYPERPLASIA WITHOUT LOWER URINRY TRACT SYMP Status: Chronic Priority: Low Current Visit: No Qualifiers: Lower urinary tract symptom presence: unspecified whether lower urinary tract symptoms present Qualified Code(s): N40.0 - Benign prostatic hyperplasia without lower urinary tract symptoms (8) Atrial fibrillation SNOMED Code(s): 32468848 Code(s): I48.91 - UNSPECIFIED ATRIAL FIBRILLATION Status: Chronic Priority: Medium Current Visit: No Qualifiers: Atrial fibrillation type: chronic Qualified Code(s): I48.2 - Chronic atrial fibrillation (9) CAD (coronary artery disease) SNOMED Code(s): 92498210 Code(s): I25.10 - ATHSCL HEART DISEASE OF [place] CORONARY ARTERY W/O ANG PCTRS Status: Chronic Priority: Low Current Visit: No Qualifiers: Coronary Disease-Associated Artery/Lesion type: unspecified vessel or lesion type [place] vs. transplanted heart: [place] heart (10) COPD (chronic obstructive pulmonary disease) SNOMED Code(s): 40069344 Code(s): J44.9 - CHRONIC OBSTRUCTIVE PULMONARY DISEASE, UNSPECIFIED Status : Chronic Priority: Medium Current Visit: No Qualifiers: Emphysema type: unspecified (11) Neutropenia SNOMED Code(s): 693707239 Code(s): D70.9 - NEUTROPENIA, UNSPECIFIED Status: Acute Priority: High Current Visit: Yes Qualifiers: Neutropenia type: unspecified Qualified Code(s): D70.9 - Neutropenia, unspecified - Problem List Review Problem List Initiated/Reviewed/Updated: Yes - My Orders Last 24 Hours: My Active Orders 06/28/17 11:15 Levalbuterol HCl [Xopenex] 1.25 mg NEB QIDRT PRN 06/28/17 15:07 RT Aerosol Therapy [RC] ASDIRECTED 06/28/17 16:00 Furosemide [Lasix] 20 mg IVPUSH DAILY@1600 06/29/17 05:11 BASIC METABOLIC PANEL,BMP [CHEM] AM CBC WITH AUTO DIFF [HEME] AM CRP [C-REACTIVE PROTEIN] [CHEM] AM MAGNESIUM [CHEM] AM PRO B-TYPE NATRIUR PEPT,BNPPRO [CHEM] DAILY 06/29/17 06:00 Furosemide [Lasix] 40 mg IVPUSH DAILY@0600 06/29/17 08:00 CXR [Chest 2V] [CR] Routine 06/30/17 05:11 BASIC METABOLIC PANEL,BMP [CHEM] AM CBC WITH AUTO DIFF [HEME] AM CRP [C-REACTIVE PROTEIN] [CHEM] AM MAGNESIUM [CHEM] AM PRO B-TYPE NATRIUR PEPT,BNPPRO [CHEM] DAILY 07/01/17 05:11 BASIC METABOLIC PANEL,BMP [CHEM] AM CBC WITH AUTO DIFF [HEME] AM CRP [C-REACTIVE PROTEIN] [CHEM] AM MAGNESIUM [CHEM] AM PRO B-TYPE NATRIUR PEPT,BNPPRO [CHEM] DAILY 07/02/17 05:11 BASIC METABOLIC PANEL,BMP [CHEM] AM CBC WITH AUTO DIFF [HEME] AM CRP [C-REACTIVE PROTEIN] [CHEM] AM MAGNESIUM [CHEM] AM PRO B-TYPE NATRIUR PEPT,BNPPRO [CHEM] DAILY - Plan Plan:: I/P: Acute: PNA -Questionable -Fever (100.5) at SNF, weakness, lethargy -Hospitalized 04/23/17-04/30/17 with pneumonia -Saturations of 91 on room air -No leukocytosis, CRP 1.2-->4.0-->2.7-->1.6 -Negative mycoplasma and influenza screen -Viral panel pending -Levaquin and Zosyn IV-->discontinue levaquin -O2 - titrate as needed -Xopenex -RT/IS/Acapella -Solu-medrol - 40mg Q12 --> decrease to 40mg Q24hr-->stop -Repeat CXR (06/26/17) - improved aeration in left lung base, emphysematous change. -Repeat CXR tomorrow -Sputum culture - negative CHF exacerbation -SOB on presentation -1-2+ pitting edema, mild rhonchi on physical exam, improved -Last echo 12/11/16--EF of 55-65%, mild AV stenosis, mild biatrial dilation, mildto moderate MVR, mild to mod elevated RV pressure at 47.9 -Repeat echo (06/25/17) - LVEF 60-65% -Normal LV systolic function -Right ventricular size is mildly enlarged -Moderate aortic valve stenosis -At least moderate mitral valve regurg -Right ventricular systolic pressure is moderately elevated -Inferior vena cava is dilated with respiratory size variation greater than 50% -No regional wall motion abnormalities -Mild biatrial dilation -Atrial fibrillation -No significant change from 12/11/16. -Lasix 20mg IVP daily, hold PO lasix -> switch to 40 mg IVP daily, add 20mg IVP lasix in evening -Salt restriction diet -Diurese Anemia, improving -Was present during last stay - received blood then -Iron studies on 04/25/17 showed Iron of 46, normal B12 and folate -Occult blood negative -Hgb 9.7-->9.3-->8.0-->10.2-->9.8 -Decrease eliquis dose from 5mg to 2.5mg BID -Transfused 2 units (06/25/17) lasix after -Suggest f/u with Dr. Diaz outpatient as he has seen him before for this Neutropenia, improving -Protective isolation --> discontinue -Received blood -Monitor with daily labs Chronic Type II DM - [place] meds, sliding scale, QID accuchecks, A1C on 04/25/17 9.6 A-fib on eliquis COPD/Hx of PNA Former Tobacco, 1970 HTN--stable HLD-lipid panel on 04/25/17 ok, cont statin History of CAD/[place] CVA Depression Other: Admitted to medical floor on telemetry overnight, upgrade to ICU --> decrease to medical floor status GI/DVT prophylax- Teds and home eliquis Home meds Daily Labs PT/OT consult SW/CSM consult Patient is DNR status PCP is Dr. Turner with [facility] in [place] LOS >96 hrs due to slow response to treatment, neutropenia and aneamia
[2017-06-28] MEDS: Furosemide 20 MG/2 ML VIAL IVPUSH SCH (16:46)
[2017-06-28] MEDS: Albuterol/Ipratropium 3.0-0.5 MG/3 ML Neb Soln NEB PRN ×2 (16:53→20:21)
[2017-06-29] MEDS: Piperacillin/Tazobactam 4.5 GM in Sodium Chloride 0.9% 100 ML IV SCH ×3 (01:31→17:31)
[2017-06-29] MEDS: Diltiazem IR 60 MG Tab PO SCH ×3 (01:39→17:38)
[2017-06-29] MEDS: metFORMIN 500 MG Tab PO SCH (06:30)
[2017-06-29] MEDS: Pantoprazole 40 MG Tab.CR PO SCH ×2 (06:34→15:17)
[2017-06-29] MEDS: Furosemide 40 MG/4 ML VIAL IVPUSH SCH (06:39)
[2017-06-29] MEDS: Insulin Aspart 100 Units/ML 3 ML Pen SUBCUT SCH ×4 (08:41→23:20)
[2017-06-29] MEDS: Polyethylene Glycol 3350 Powder 17 GM Packet PO SCH (08:50)
[2017-06-29] MEDS: risperiDONE 0.25 MG Tab PO SCH (08:52)
[2017-06-29] MEDS: Magnesium Oxide 400 MG Tab PO SCH (08:53)
[2017-06-29] MEDS: Gabapentin 300 MG Cap PO SCH ×2 (08:53→20:43)
[2017-06-29] MEDS: Saccharomyces Boulardii (Probiotic) 250 MG Cap PO SCH (08:53)
[2017-06-29] MEDS: Tamsulosin 0.4 MG Cap.ER PO SCH (08:53)
[2017-06-29] MEDS: Sennosides 8.6 MG Tab PO SCH (08:53)
[2017-06-29] MEDS: Donepezil 10 MG Tab PO SCH (08:53)
[2017-06-29] MEDS: traMADol 50 MG Tab PO SCH ×3 (08:53→20:44)
[2017-06-29] MEDS: Metoprolol Tartrate 50 MG Tab PO SCH ×2 (08:55→20:45)
[2017-06-29] MEDS: DULoxetine 30 MG Cap PO SCH (08:55)
[2017-06-29] MEDS: Docusate Sodium 100 MG Cap PO SCH ×2 (08:55→20:43)
[2017-06-29] MEDS: Calcium Carbonate 500 MG Tab.Chew PO SCH (08:55)
[2017-06-29] MEDS: Ferrous Sulfate 325 MG Tab PO SCH (08:56)
[2017-06-29] MEDS: Hypromellose 0.5% Ophth Soln 15 ML Bottle EYEBOTH SCH ×2 (08:56→20:53)
[2017-06-29] MEDS: Insulin Detemir 100 Units/ML 3 ML Pen SUBCUT SCH (08:56)
[2017-06-29] MEDS: Apixaban 5 MG Tab PO SCH ×2 (09:02→20:42)
[2017-06-29] MEDS: ORAJEL BUCCAL SCH ×2 (09:10→20:45)
[2017-06-29] MEDS ORDERED: 50% Dextrose in Water 50 ML Syringe ONE (13:42)
[2017-06-29] MEDS: Albuterol/Ipratropium 3.0-0.5 MG/3 ML Neb Soln NEB PRN (15:11)
[2017-06-29] MEDS: Furosemide 20 MG/2 ML VIAL IVPUSH SCH (15:16)
[2017-06-29] MEDS ORDERED: Sodium Chloride 0.9% 500 ML IV ONE (15:34)
[2017-06-29] MEDS ORDERED: 50% Dextrose in Water 50 ML Syringe IVPUSH PRN (17:03)
[2017-06-29] MEDS: Dextrose 5%-0.9% NaCl 1,000 ML IV SCH (17:16)
[2017-06-29] MEDS ORDERED: methylPREDNISolone Sodium Succinate 125 MG/2 ML SDV IVPUSH ONE (17:43)
[2017-06-30] MEDS: Piperacillin/Tazobactam 4.5 GM in Sodium Chloride 0.9% 100 ML IV SCH ×3 (00:27→17:04)
[2017-06-30] MEDS: Diltiazem IR 60 MG Tab PO SCH ×3 (03:22→17:05)
[2017-06-30] MEDS: Pantoprazole 40 MG Tab.CR PO SCH ×2 (06:15→15:29)
[2017-06-30] MEDS: Furosemide 40 MG/4 ML VIAL IVPUSH SCH (06:15)
[2017-06-30] MEDS: Dextrose 5%-0.9% NaCl 1,000 ML IV SCH (08:06)
[2017-06-30] MEDS: Apixaban 5 MG Tab PO SCH ×2 (09:15→21:40)
[2017-06-30] MEDS: risperiDONE 0.25 MG Tab PO SCH (09:16)
[2017-06-30] MEDS: Saccharomyces Boulardii (Probiotic) 250 MG Cap PO SCH (09:17)
[2017-06-30] MEDS: Docusate Sodium 100 MG Cap PO SCH ×2 (09:17→21:43)
[2017-06-30] MEDS: Sennosides 8.6 MG Tab PO SCH (09:17)
[2017-06-30] MEDS: traMADol 50 MG Tab PO SCH ×3 (09:17→21:41)
[2017-06-30] MEDS: Gabapentin 300 MG Cap PO SCH ×2 (09:18→21:43)
[2017-06-30] MEDS: Magnesium Oxide 400 MG Tab PO SCH (09:18)
[2017-06-30] MEDS: Calcium Carbonate 500 MG Tab.Chew PO SCH (09:19)
[2017-06-30] MEDS: Metoprolol Tartrate 50 MG Tab PO SCH ×2 (09:19→21:43)
[2017-06-30] MEDS: Tamsulosin 0.4 MG Cap.ER PO SCH (09:19)
[2017-06-30] MEDS: DULoxetine 30 MG Cap PO SCH (09:19)
[2017-06-30] MEDS: Ferrous Sulfate 325 MG Tab PO SCH (09:19)
[2017-06-30] MEDS: Polyethylene Glycol 3350 Powder 17 GM Packet PO SCH (09:20)
[2017-06-30] MEDS: Insulin Aspart 100 Units/ML 3 ML Pen SUBCUT SCH ×4 (09:20→21:39)
[2017-06-30] MEDS: Donepezil 10 MG Tab PO SCH (09:20)
[2017-06-30] MEDS: Hypromellose 0.5% Ophth Soln 15 ML Bottle EYEBOTH SCH ×2 (09:21→21:39)
[2017-06-30] MEDS: ORAJEL BUCCAL SCH ×2 (09:22→21:43)
--- NOTE | 2017-06-30 13:45 | PCM.PN ---
- General Info Subjective Update: Mr Werner has improved since yesterday; acute mental status change with decrease oral intake has improved. He is requesting to eat. He received his Levemir yesterday which likely contributed to the change, this is currently on hold. Novolog ss is ordered. Functional Status: Reports: Tolerating Diet, Urinating - Review of Systems General: Reports: Weakness HEENT: Reports: No Symptoms Pulmonary: Reports: No Symptoms Cardiovascular: Reports: No Symptoms Gastrointestinal: Reports: No Symptoms Genitourinary: Reports: No Symptoms Musculoskeletal: Reports: No Symptoms Skin: Reports: No Symptoms Neurological: Reports: No Symptoms Psychiatric: Reports: No Symptoms - Patient Data Vitals - Most Recent: Last Vital Signs Temp 36.8 C 06/30/17 07:41 Pulse 135 H 06/30/17 09:19 Resp 20 06/30/17 07:41 BP 105/77 06/30/17 09:19 Pulse Ox 92 L 06/30/17 07:41 Weight - Most Recent: 83.642 kg I&O - Last 24 Hours: Intake & Output 06/29/17 06/30/17 06/30/17 21:59 06:59 14:59 Intake Total Output Total Balance Lab Results Last 24 Hours: Laboratory Results - last 24 hr 06/29/17 06/29/17 06/29/17 Range/Units 13:43 14:17 16:47 WBC (4.23-9.07) K/mm3 RBC (4.63-6.08) M/mm3 Hgb (13.7-17.5) gm/L Hct (40.1-51.0) % MCV (79.0-92.2) fl MCH (25.7-32.2) pg MCHC (32.2-35.5) g/dl RDW Std Deviation (35.1-43.9) fL Plt Count (163-337) K/mm3 MPV (9.4-12.3) fl Neut % (Auto) (34.0-67.9) % Lymph % (Auto) (21.8-53.1) % Mccormick % (Auto) (5.3-12.2) % Eos % (Auto) (0.8-7.0) Baso % (Auto) (0.1-1.2) % Neut # (Auto) (1.78-5.38) K/mm3 Lymph # (Auto) (1.32-3.57) K/mm3 Mccormick # (Auto) (0.30-0.82) K/mm3 Eos # (Auto) (0.04-0.54) K/mm3 Baso # (Auto) (0.01-0.08) K/mm3 Manual Slide Review Sodium (136-145) mEq/L Potassium (3.5-5.1) mEq/L Chloride (98-107) mEq/L Carbon Dioxide (21-32) mEq/L Anion Gap (5-15) BUN (7-18) mg/dL Creatinine (0.7-1.3) mg/dL Est Cr Clr Drug Dosing mL/min Estimated GFR (MDRD) (>60) mL/min BUN/Creatinine Ratio (14-18) Glucose (83-115) mg/dL POC Glucose 59 L 196 H 55 L (83-110) mg/dL Calcium (8.5-10.1) mg/dL Magnesium (1.8-2.4) mg/dl C-Reactive Protein (<1.0) mg/dL NT-Pro-B Natriuret Pep (0-450) pg/mL 06/29/17 06/29/17 06/29/17 Range/Units 18:09 19:48 22:06 WBC (4.23-9.07) K/mm3 RBC (4.63-6.08) M/mm3 Hgb (13.7-17.5) gm/L Hct (40.1-51.0) % MCV (79.0-92.2) fl MCH (25.7-32.2) pg MCHC (32.2-35.5) g/dl RDW Std Deviation (35.1-43.9) fL Plt Count (163-337) K/mm3 MPV (9.4-12.3) fl Neut % (Auto) (34.0-67.9) % Lymph % (Auto) (21.8-53.1) % Mccormick % (Auto) (5.3-12.2) % Eos % (Auto) (0.8-7.0) Baso % (Auto) (0.1-1.2) % Neut # (Auto) (1.78-5.38) K/mm3 Lymph # (Auto) (1.32-3.57) K/mm3 Mccormick # (Auto) (0.30-0.82) K/mm3 Eos # (Auto) (0.04-0.54) K/mm3 Baso # (Auto) (0.01-0.08) K/mm3 Manual Slide Review Sodium (136-145) mEq/L Potassium (3.5-5.1) mEq/L Chloride (98-107) mEq/L Carbon Dioxide (21-32) mEq/L Anion Gap (5-15) BUN (7-18) mg/dL Creatinine (0.7-1.3) mg/dL Est Cr Clr Drug Dosing mL/min Estimated GFR (MDRD) (>60) mL/min BUN/Creatinine Ratio (14-18) Glucose (83-115) mg/dL POC Glucose 140 H 92 140 H (83-110) mg/dL Calcium (8.5-10.1) mg/dL Magnesium (1.8-2.4) mg/dl C-Reactive Protein (<1.0) mg/dL NT-Pro-B Natriuret Pep (0-450) pg/mL 06/29/17 06/30/17 06/30/17 Range/Units 23:54 03:40 06:30 WBC 5.41 (4.23-9.07) K/mm3 RBC 3.77 L (4.63-6.08) M/mm3 Hgb 12.5 L (13.7-17.5) gm/L Hct 38.4 L (40.1-51.0) % MCV 101.9 H (79.0-92.2) fl MCH 33.2 H (25.7-32.2) pg MCHC 32.6 (32.2-35.5) g/dl RDW Std Deviation 76.6 H (35.1-43.9) fL Plt Count 86 L (163-337) K/mm3 MPV 11.5 (9.4-12.3) fl Neut % (Auto) 79.2 H (34.0-67.9) % Lymph % (Auto) 16.1 L (21.8-53.1) % Mccormick % (Auto) 2.6 L (5.3-12.2) % Eos % (Auto) 0 L (0.8-7.0) Baso % (Auto) 0.4 (0.1-1.2) % Neut # (Auto) 4.29 (1.78-5.38) K/mm3 Lymph # (Auto) 0.87 L (1.32-3.57) K/mm3 Mccormick # (Auto) 0.14 L (0.30-0.82) K/mm3 Eos # (Auto) 0.00 L (0.04-0.54) K/mm3 Baso # (Auto) 0.02 (0.01-0.08) K/mm3 Manual Slide Review Abnormal smear Sodium (136-145) mEq/L Potassium (3.5-5.1) mEq/L Chloride (98-107) mEq/L Carbon Dioxide (21-32) mEq/L Anion Gap (5-15) BUN (7-18) mg/dL Creatinine (0.7-1.3) mg/dL Est Cr Clr Drug Dosing mL/min Estimated GFR (MDRD) (>60) mL/min BUN/Creatinine Ratio (14-18) Glucose (83-115) mg/dL POC Glucose 180 H 282 H (83-110) mg/dL Calcium (8.5-10.1) mg/dL Magnesium (1.8-2.4) mg/dl C-Reactive Protein (<1.0) mg/dL NT-Pro-B Natriuret Pep (0-450) pg/mL 06/30/17 06/30/17 06/30/17 Range/Units 06:30 06:30 08:56 WBC (4.23-9.07) K/mm3 RBC (4.63-6.08) M/mm3 Hgb (13.7-17.5) gm/L Hct (40.1-51.0) % MCV (79.0-92.2) fl MCH (25.7-32.2) pg MCHC (32.2-35.5) g/dl RDW Std Deviation (35.1-43.9) fL Plt Count (163-337) K/mm3 MPV (9.4-12.3) fl Neut % (Auto) (34.0-67.9) % Lymph % (Auto) (21.8-53.1) % Mccormick % (Auto) (5.3-12.2) % Eos % (Auto) (0.8-7.0) Baso % (Auto) (0.1-1.2) % Neut # (Auto) (1.78-5.38) K/mm3 Lymph # (Auto) (1.32-3.57) K/mm3 Mccormick # (Auto) (0.30-0.82) K/mm3 Eos # (Auto) (0.04-0.54) K/mm3 Baso # (Auto) (0.01-0.08) K/mm3 Manual Slide Review Sodium 139 (136-145) mEq/L Potassium 4.4 (3.5-5.1) mEq/L Chloride 100 (98-107) mEq/L Carbon Dioxide 32 (21-32) mEq/L Anion Gap 11.4 (5-15) BUN 25 H (7-18) mg/dL Creatinine 1.0 (0.7-1.3) mg/dL Est Cr Clr Drug Dosing 50.49 mL/min Estimated GFR (MDRD) > 60 (>60) mL/min BUN/Creatinine Ratio 25.0 H (14-18) Glucose 319 H (83-115) mg/dL POC Glucose 311 H (83-110) mg/dL Calcium 8.3 L (8.5-10.1) mg/dL Magnesium 2.0 (1.8-2.4) mg/dl C-Reactive Protein 0.2 (<1.0) mg/dL NT-Pro-B Natriuret Pep 1122 H (0-450) pg/mL 06/30/17 Range/Units 11:38 WBC (4.23-9.07) K/mm3 RBC (4.63-6.08) M/mm3 Hgb (13.7-17.5) gm/L Hct (40.1-51.0) % MCV (79.0-92.2) fl MCH (25.7-32.2) pg MCHC (32.2-35.5) g/dl RDW Std Deviation (35.1-43.9) fL Plt Count (163-337) K/mm3 MPV (9.4-12.3) fl Neut % (Auto) (34.0-67.9) % Lymph % (Auto) (21.8-53.1) % Mccormick % (Auto) (5.3-12.2) % Eos % (Auto) (0.8-7.0) Baso % (Auto) (0.1-1.2) % Neut # (Auto) (1.78-5.38) K/mm3 Lymph # (Auto) (1.32-3.57) K/mm3 Mccormick # (Auto) (0.30-0.82) K/mm3 Eos # (Auto) (0.04-0.54) K/mm3 Baso # (Auto) (0.01-0.08) K/mm3 Manual Slide Review Sodium (136-145) mEq/L Potassium (3.5-5.1) mEq/L Chloride (98-107) mEq/L Carbon Dioxide (21-32) mEq/L Anion Gap (5-15) BUN (7-18) mg/dL Creatinine (0.7-1.3) mg/dL Est Cr Clr Drug Dosing mL/min Estimated GFR (MDRD) (>60) mL/min BUN/Creatinine Ratio (14-18) Glucose (83-115) mg/dL POC Glucose 359 H (83-110) mg/dL Calcium (8.5-10.1) mg/dL Magnesium (1.8-2.4) mg/dl C-Reactive Protein (<1.0) mg/dL NT-Pro-B Natriuret Pep (0-450) pg/mL Med Orders - Current: Current Medications Acetaminophen (Tylenol) 650 mg PO Q6H PRN PRN Reason: Pain/Fever Acetaminophen (Tylenol) 650 mg PO Q6H PRN PRN Reason: Pain/Fever Albuterol/Ipratropium (Duoneb 3.0-0.5 Mg/3 Ml) 3 ml NEB QIDRT PRN PRN Reason: Shortness of Breath Last Admin: 06/29/17 15:11 Dose: 3 ml Apixaban (Eliquis) 2.5 mg PO BID [facility] Last Admin: 06/30/17 09:15 Dose: 2.5 mg Artificial Tears (Isopto Tears 0.5% Ophth Soln) 0 ml EYEBOTH BID PRN PRN Reason: Dry Eyes Artificial Tears (Isopto Tears 0.5% Ophth Soln) 0 ml EYEBOTH BID [facility] Last Admin: 06/30/17 09:21 Dose: 1 drop Calcium Carbonate/Glycine (Tums) 500 mg PO DAILY [facility] Last Admin: 06/30/17 09:19 Dose: 500 mg Dextrose/Water (Dextrose 50% In Water) 50 ml IVPUSH ASDIRECTED PRN PRN Reason: Hypoglycemia Last Admin: 06/29/17 17:16 Dose: 50 ml Diltiazem HCl (Cardizem) 60 mg PO Q8H [facility] Last Admin: 06/30/17 09:19 Dose: Not Given Docusate Sodium (Colace) 200 mg PO BID [facility] Last Admin: 06/30/17 09:17 Dose: 200 mg Donepezil HCl (Aricept) 10 mg PO DAILY [facility] Last Admin: 06/30/17 09:20 Dose: 10 mg Duloxetine HCl (Cymbalta) 60 mg PO DAILY [facility] Last Admin: 06/30/17 09:19 Dose: 60 mg Ferrous Sulfate (Ferrous Sulfate) 325 mg PO DAILY [facility] Last Admin: 06/30/17 09:19 Dose: 325 mg Furosemide (Lasix) 20 mg IVPUSH DAILY@1600 [facility] Last Admin: 06/29/17 15:16 Dose: Not Given Furosemide (Lasix) 40 mg IVPUSH DAILY@0600 [facility] Last Admin: 06/30/17 06:15 Dose: 40 mg Gabapentin (Neurontin) 300 mg PO BID [facility] Last Admin: 06/30/17 09:18 Dose: 300 mg Hydralazine HCl (Apresoline) 10 mg IVPUSH Q6H PRN PRN Reason: Hypertension Piperacillin Sod/Tazobactam (Sod 4.5 gm/ Sodium Chloride) 100 mls @ 25 mls/hr IV Q8H [facility] Last Admin: 06/30/17 09:21 Dose: 25 mls/hr Dextrose/Sodium Chloride (Dextrose 5%-Normal Saline) 1,000 mls @ 75 mls/hr IV ASDIRECTED [facility] Last Admin: 06/30/17 08:06 Dose: 75 mls/hr Insulin Aspart (Novolog) 0 unit SUBCUT QIDACANDBED [facility] PRN Reason: Protocol Last Admin: 06/30/17 13:34 Dose: 5 units Insulin Detemir (Levemir) 11 unit SUBCUT BID [facility] Last Admin: 06/29/17 08:56 Dose: 11 units Levalbuterol HCl (Xopenex) 1.25 mg NEB QIDRT PRN PRN Reason: Shortness of Breath Magnesium Oxide (Magnesium Oxide) 400 mg PO DAILY [facility] Last Admin: 06/30/17 09:18 Dose: 400 mg Metformin HCl (Glucophage) 250 mg PO BIDMEALS [facility] Last Admin: 06/29/17 06:30 Dose: Not Given Metoprolol Tartrate (Lopressor) 5 mg IVPUSH Q4H PRN PRN Reason: Tachycardia Last Admin: 06/26/17 12:45 Dose: 5 mg Metoprolol Tartrate (Lopressor) 50 mg PO Q12HR [facility] Last Admin: 06/30/17 09:19 Dose: 50 mg Pantoprazole Sodium (Protonix) 40 mg PO BIDAC [facility] Last Admin: 06/30/17 06:15 Dose: 40 mg Orajel 1 Applic 0 each BUCCAL BID [facility] Last Admin: 06/30/17 09:22 Dose: Not Given Polyethylene Glycol (Miralax) 17 gm PO DAILY [facility] Last Admin: 06/30/17 09:20 Dose: 17 gm Risperidone (Risperidal) 0.125 mg PO DAILY [facility] Last Admin: 06/30/17 09:16 Dose: 0.125 mg Saccharomyces Boulardii (Florastor) 250 mg PO DAILY [facility] Last Admin: 06/30/17 09:17 Dose: 250 mg Senna (Senna) 17.2 mg PO DAILY [facility] Last Admin: 06/30/17 09:17 Dose: 17.2 mg Sodium Chloride (Saline Flush) 10 ml FLUSH ASDIRECTED PRN PRN Reason: Keep Vein Open Last Admin: 06/23/17 18:59 Dose: 10 ml Tamsulosin HCl (Flomax) 0.4 mg PO DAILY [facility] Last Admin: 06/30/17 09:19 Dose: 0.4 mg Tramadol HCl (Ultram) 100 mg PO TID [facility] Last Admin: 06/30/17 09:17 Dose: 100 mg Discontinued Medications Acetaminophen (Tylenol) 650 mg PO NOW ONE Stop: 06/23/17 20:57 Last Admin: 06/23/17 21:09 Dose: 650 mg Acetaminophen (Tylenol) 650 mg PO Q4H PRN PRN Reason: Pain/Fever Last Admin: 06/24/17 06:26 Dose: 650 mg Apixaban (Eliquis) 2.5 mg PO BID [facility] Dextrose/Water (Dextrose 50% In Water) 25 ml IVPUSH ASDIRECTED ONE Stop: 06/23/17 21:50 Last Admin: 06/23/17 22:05 Dose: 25 ml Dextrose/Water (Dextrose 50% In Water) Confirm Administered Dose 50 ml .ROUTE .STK-MED ONE Stop: 06/29/17 13:43 Last Admin: 06/29/17 14:02 Dose: 50 ml Furosemide (Lasix) 20 mg IVPUSH NOW ONE Stop: 06/24/17 09:45 Last Admin: 06/24/17 10:04 Dose: 20 mg Furosemide (Lasix) 20 mg IVPUSH DAILY [facility] Last Admin: 06/26/17 09:21 Dose: 20 mg Furosemide (Lasix) 40 mg IV NOW ONE Stop: 06/25/17 08:12 Last Admin: 06/25/17 08:55 Dose: Not Given Furosemide (Lasix) 40 mg IVPUSH NOW ONE Stop: 06/25/17 14:20 Last Admin: 06/25/17 14:30 Dose: 40 mg Furosemide (Lasix) 40 mg IVPUSH DAILY [facility] Last Admin: 06/28/17 09:29 Dose: 40 mg Sodium Chloride (Normal Saline) 250 mls @ 999 mls/hr IV ONETIME ONE Stop: 06/23/17 19:18 Last Admin: 06/24/17 01:22 Dose: Not Given Sodium Chloride (Normal Saline) 500 mls @ 999 mls/hr IV ONETIME ONE Stop: 06/23/17 19:33 Last Admin: 06/23/17 19:13 Dose: 999 mls/hr Sodium Chloride (Normal Saline) 1,000 mls @ 100 mls/hr IV ONETIME ONE Stop: 06/24/17 06:54 Last Admin: 06/23/17 21:05 Dose: 100 mls/hr Ceftriaxone Sodium 2 gm/ (Sodium Chloride) 100 mls @ 100 mls/hr IV ONETIME ONE Stop: 06/23/17 23:13 Last Admin: 06/23/17 22:35 Dose: 100 mls/hr Sodium Chloride (Normal Saline) 500 mls @ 999 mls/hr IV ONETIME ONE Stop: 06/23/17 22:54 Last Admin: 06/24/17 01:23 Dose: Not Given Sodium Chloride (Normal Saline) 1,000 mls @ 999 mls/hr IV ONETIME ONE Stop: 06/23/17 23:24 Last Admin: 06/23/17 22:38 Dose: 999 mls/hr Levofloxacin/Dextrose 750 mg/ (Premix) 150 mls @ 100 mls/hr IV ONETIME ONE Stop: 06/24/17 02:39 Last Admin: 06/24/17 01:40 Dose: 100 mls/hr Sodium Chloride (Normal Saline) 1,000 mls @ 75 mls/hr IV ASDIRECTED [facility] Last Admin: 06/24/17 06:26 Dose: 75 mls/hr Piperacillin Sod/Tazobactam (Sod 4.5 gm/ Sodium Chloride) 100 mls @ 200 mls/hr IV ONETIME ONE Stop: 06/24/17 09:29 Last Admin: 06/24/17 09:34 Dose: 200 mls/hr Levofloxacin/Dextrose 750 mg/ (Premix) 150 mls @ 100 mls/hr IV Q24H [facility] Last Admin: 06/26/17 01:26 Dose: 100 mls/hr Sodium Chloride (Normal Saline) Confirm Administered Dose 100 mls @ as directed .ROUTE .STK-MED ONE Stop: 06/25/17 09:03 Last Admin: 06/25/17 09:27 Dose: 100 ml Magnesium Sulfate 2 gm/ Premix 50 mls @ 25 mls/hr IV ONETIME ONE Stop: 06/25/17 11:42 Last Admin: 06/25/17 10:52 Dose: 25 mls/hr Sodium Chloride (Normal Saline) Confirm Administered Dose 100 mls @ as directed .ROUTE .STK-MED ONE Stop: 06/25/17 11:44 Last Admin: 06/25/17 12:18 Dose: 100 ml Sodium Chloride (Normal Saline) 500 mls @ 999 mls/hr IV .BOLUS ONE Stop: 06/29/17 16:04 Last Admin: 06/29/17 15:41 Dose: 999 mls/hr Iopamidol (Isovue-300 (61%)) 150 ml IVPUSH ONETIME ONE Stop: 06/23/17 21:43 Last Admin: 06/23/17 21:58 Dose: 125 ml Levalbuterol HCl (Xopenex) 1.25 mg NEB QIDRT [facility] Last Admin: 06/28/17 10:44 Dose: 1.25 mg Levalbuterol HCl (Xopenex) 1.25 mg NEB QIDRT PRN PRN Reason: SOB/Wheezing Methylprednisolone Sodium Succinate (Solu-Medrol) 40 mg IVPUSH Q12H [facility] Last Admin: 06/27/17 00:33 Dose: 40 mg Methylprednisolone Sodium Succinate (Solu-Medrol) 40 mg IVPUSH Q24H [facility] Last Admin: 06/27/17 13:38 Dose: 40 mg Methylprednisolone Sodium Succinate (Solu-Medrol) 125 mg IVPUSH ONETIME ONE Stop: 06/29/17 17:44 Last Admin: 06/29/17 18:02 Dose: 125 mg Sodium Chloride (Saline Flush) 10 ml FLUSH ONETIME PRN PRN Reason: IV FLUSH Last Admin: 06/23/17 21:58 Dose: 10 ml - Exam Quality Assessment: Supplemental Oxygen, DVT Prophylaxis General: Alert, Oriented, Cooperative, No Acute Distress HEENT: Pupils Equal, Pupils Reactive, EOMI Neck: Supple, Trachea Midline, No JVD Lungs: Normal Respiratory Effort Cardiovascular: Regular Rate, Irregular Rhythm GI/Abdominal Exam: Normal Bowel Sounds, Soft, Non-Tender, No Organomegaly, No Distention (Male) Exam: Deferred Back Exam: Normal Inspection Extremities: Normal Inspection Skin: Warm Neurological: No New Focal Deficit Psy/Mental Status: Alert, Normal Affect, Normal Mood - Problem List Review Problem List Initiated/Reviewed/Updated: Yes - My Orders Last 24 Hours: My Active Orders 06/29/17 17:00 Dextrose 5%-0.9% NaCl [Dextrose 5%-Normal Saline] 1,000 ml IV ASDIRECTED 06/29/17 17:03 Dextrose 50% in Water 50 ml IVPUSH ASDIRECTED PRN 06/29/17 20:00 Accu Check [Blood Glucose Check, Bedside] [RC] Q4HR 06/30/17 Lunch Soft Diet [DIET] - Plan Plan:: I/P: Acute: PNA -Questionable -Fever (100.5) at SNF, weakness, lethargy -Hospitalized 04/23/17-04/30/17 with pneumonia -Saturations of 91 on room air -No leukocytosis, CRP 1.2-->4.0-->2.7-->1.6 -Negative mycoplasma and influenza screen -Viral panel pending -Levaquin and Zosyn IV-->discontinue levaquin -O2 - titrate as needed -Xopenex -RT/IS/Acapella -Solu-medrol - 40mg Q12 --> decrease to 40mg Q24hr-->stopped -Repeat CXR (06/26/17) - improved aeration in left lung base, emphysematous change. -Repeat CXR tomorrow -Sputum culture - negative CHF exacerbation--stable, no significant bump in BNP with fluid required. -SOB on presentation -1-2+ pitting edema, mild rhonchi on physical exam, improved -Last echo 12/11/16--EF of 55-65%, mild AV stenosis, mild biatrial dilation, mildto moderate MVR, mild to mod elevated RV pressure at 47.9 -Repeat echo (06/25/17) - LVEF 60-65% -Normal LV systolic function -Right ventricular size is mildly enlarged -Moderate aortic valve stenosis -At least moderate mitral valve regurg -Right ventricular systolic pressure is moderately elevated -Inferior vena cava is dilated with respiratory size variation greater than 50% -No regional wall motion abnormalities -Mild biatrial dilation -Atrial fibrillation -No significant change from 12/11/16. -Lasix 20mg IVP daily, hold PO lasix -> switch to 40 mg IVP daily, add 20mg IVP lasix in evening -Salt restriction diet -Diurese Anemia, stable -Was present during last stay - received blood then -Iron studies on 04/25/17 showed Iron of 46, normal B12 and folate -Occult blood negative -Hgb 9.7-->9.3-->8.0-->10.2-->9.8 -Decrease eliquis dose from 5mg to 2.5mg BID -Transfused 2 units (06/25/17) lasix after -Suggest f/u with Dr. Diaz outpatient as he has seen him before for this Neutropenia, resolved -Protective isolation --> discontinue -Received blood -Monitor with daily labs Chronic Type II DM - Danyelle meds, sliding scale, QID accuchecks, A1C on 04/25/17 9.6 A-fib on eliquis COPD/Hx of PNA Former Tobacco, 1968 HTN--stable HLD-lipid panel on 04/25/17 ok, cont statin History of CAD/PA CVA Depression Other: Admitted to medical floor on telemetry overnight, upgrade to ICU --> decrease to medical floor status GI/DVT prophylax- Teds and home eliquis Home meds Daily Labs PT/OT consult SW/CSM consult Patient is DNR status PCP is Dr. Turner with [facility] in [place] LOS >96 hrs due to slow response to treatment, resp treatment/CHF
--- NOTE | 2017-06-30 13:53 | PCM.PN ---
- General Info Date of Service: 06/29/17 Admission Dx/Problem (Free Text): medication reviewed after confusion with increasing lethargy, he has received Levemir with minimal ingestion of food for breakfast; med review otherwise non contributory. Functional Status: Reports: Urinating - Review of Systems General: Reports: Weakness HEENT: Reports: No Symptoms Pulmonary: Reports: No Symptoms Cardiovascular: Reports: No Symptoms Gastrointestinal: Reports: No Symptoms Genitourinary: Reports: No Symptoms Musculoskeletal: Reports: No Symptoms Skin: Reports: No Symptoms Neurological: Reports: Confusion Psychiatric: Reports: Other (lethargic) - Patient Data Vitals - Most Recent: Last Vital Signs Temp 36.8 C 06/30/17 07:41 Pulse 135 H 06/30/17 09:19 Resp 20 06/30/17 07:41 BP 105/77 06/30/17 09:19 Pulse Ox 92 L 06/30/17 07:41 Weight - Most Recent: 83.642 kg I&O - Last 24 Hours: Intake & Output 06/29/17 06/30/17 06/30/17 21:59 06:59 14:59 Intake Total Output Total Balance Lab Results Last 24 Hours: Laboratory Results - last 24 hr 06/29/17 06/29/17 06/29/17 Range/Units 13:43 14:17 16:47 WBC (4.23-9.07) K/mm3 RBC (4.63-6.08) M/mm3 Hgb (13.7-17.5) gm/L Hct (40.1-51.0) % MCV (79.0-92.2) fl MCH (25.7-32.2) pg MCHC (32.2-35.5) g/dl RDW Std Deviation (35.1-43.9) fL Plt Count (163-337) K/mm3 MPV (9.4-12.3) fl Neut % (Auto) (34.0-67.9) % Lymph % (Auto) (21.8-53.1) % [place] % (Auto) (5.3-12.2) % Eos % (Auto) (0.8-7.0) Baso % (Auto) (0.1-1.2) % Neut # (Auto) (1.78-5.38) K/mm3 Lymph # (Auto) (1.32-3.57) K/mm3 [place] # (Auto) (0.30-0.82) K/mm3 Eos # (Auto) (0.04-0.54) K/mm3 Baso # (Auto) (0.01-0.08) K/mm3 Manual Slide Review Sodium (136-145) mEq/L Potassium (3.5-5.1) mEq/L Chloride (98-107) mEq/L Carbon Dioxide (21-32) mEq/L Anion Gap (5-15) BUN (7-18) mg/dL Creatinine (0.7-1.3) mg/dL Est Cr Clr Drug Dosing mL/min Estimated GFR (MDRD) (>60) mL/min BUN/Creatinine Ratio (14-18) Glucose (83-115) mg/dL POC Glucose 59 L 196 H 55 L (83-110) mg/dL Calcium (8.5-10.1) mg/dL Magnesium (1.8-2.4) mg/dl C-Reactive Protein (<1.0) mg/dL NT-Pro-B Natriuret Pep (0-450) pg/mL 06/29/17 06/29/17 06/29/17 Range/Units 18:09 19:48 22:06 WBC (4.23-9.07) K/mm3 RBC (4.63-6.08) M/mm3 Hgb (13.7-17.5) gm/L Hct (40.1-51.0) % MCV (79.0-92.2) fl MCH (25.7-32.2) pg MCHC (32.2-35.5) g/dl RDW Std Deviation (35.1-43.9) fL Plt Count (163-337) K/mm3 MPV (9.4-12.3) fl Neut % (Auto) (34.0-67.9) % Lymph % (Auto) (21.8-53.1) % [place] % (Auto) (5.3-12.2) % Eos % (Auto) (0.8-7.0) Baso % (Auto) (0.1-1.2) % Neut # (Auto) (1.78-5.38) K/mm3 Lymph # (Auto) (1.32-3.57) K/mm3 [place] # (Auto) (0.30-0.82) K/mm3 Eos # (Auto) (0.04-0.54) K/mm3 Baso # (Auto) (0.01-0.08) K/mm3 Manual Slide Review Sodium (136-145) mEq/L Potassium (3.5-5.1) mEq/L Chloride (98-107) mEq/L Carbon Dioxide (21-32) mEq/L Anion Gap (5-15) BUN (7-18) mg/dL Creatinine (0.7-1.3) mg/dL Est Cr Clr Drug Dosing mL/min Estimated GFR (MDRD) (>60) mL/min BUN/Creatinine Ratio (14-18) Glucose (83-115) mg/dL POC Glucose 140 H 92 140 H (83-110) mg/dL Calcium (8.5-10.1) mg/dL Magnesium (1.8-2.4) mg/dl C-Reactive Protein (<1.0) mg/dL NT-Pro-B Natriuret Pep (0-450) pg/mL 06/29/17 06/30/17 06/30/17 Range/Units 23:54 03:40 06:30 WBC 5.41 (4.23-9.07) K/mm3 RBC 3.77 L (4.63-6.08) M/mm3 Hgb 12.5 L (13.7-17.5) gm/L Hct 38.4 L (40.1-51.0) % MCV 101.9 H (79.0-92.2) fl MCH 33.2 H (25.7-32.2) pg MCHC 32.6 (32.2-35.5) g/dl RDW Std Deviation 76.6 H (35.1-43.9) fL Plt Count 86 L (163-337) K/mm3 MPV 11.5 (9.4-12.3) fl Neut % (Auto) 79.2 H (34.0-67.9) % Lymph % (Auto) 16.1 L (21.8-53.1) % [place] % (Auto) 2.6 L (5.3-12.2) % Eos % (Auto) 0 L (0.8-7.0) Baso % (Auto) 0.4 (0.1-1.2) % Neut # (Auto) 4.29 (1.78-5.38) K/mm3 Lymph # (Auto) 0.87 L (1.32-3.57) K/mm3 [place] # (Auto) 0.14 L (0.30-0.82) K/mm3 Eos # (Auto) 0.00 L (0.04-0.54) K/mm3 Baso # (Auto) 0.02 (0.01-0.08) K/mm3 Manual Slide Review Abnormal smear Sodium (136-145) mEq/L Potassium (3.5-5.1) mEq/L Chloride (98-107) mEq/L Carbon Dioxide (21-32) mEq/L Anion Gap (5-15) BUN (7-18) mg/dL Creatinine (0.7-1.3) mg/dL Est Cr Clr Drug Dosing mL/min Estimated GFR (MDRD) (>60) mL/min BUN/Creatinine Ratio (14-18) Glucose (83-115) mg/dL POC Glucose 180 H 282 H (83-110) mg/dL Calcium (8.5-10.1) mg/dL Magnesium (1.8-2.4) mg/dl C-Reactive Protein (<1.0) mg/dL NT-Pro-B Natriuret Pep (0-450) pg/mL 06/30/17 06/30/17 06/30/17 Range/Units 06:30 06:30 08:56 WBC (4.23-9.07) K/mm3 RBC (4.63-6.08) M/mm3 Hgb (13.7-17.5) gm/L Hct (40.1-51.0) % MCV (79.0-92.2) fl MCH (25.7-32.2) pg MCHC (32.2-35.5) g/dl RDW Std Deviation (35.1-43.9) fL Plt Count (163-337) K/mm3 MPV (9.4-12.3) fl Neut % (Auto) (34.0-67.9) % Lymph % (Auto) (21.8-53.1) % [place] % (Auto) (5.3-12.2) % Eos % (Auto) (0.8-7.0) Baso % (Auto) (0.1-1.2) % Neut # (Auto) (1.78-5.38) K/mm3 Lymph # (Auto) (1.32-3.57) K/mm3 [place] # (Auto) (0.30-0.82) K/mm3 Eos # (Auto) (0.04-0.54) K/mm3 Baso # (Auto) (0.01-0.08) K/mm3 Manual Slide Review Sodium 139 (136-145) mEq/L Potassium 4.4 (3.5-5.1) mEq/L Chloride 100 (98-107) mEq/L Carbon Dioxide 32 (21-32) mEq/L Anion Gap 11.4 (5-15) BUN 25 H (7-18) mg/dL Creatinine 1.0 (0.7-1.3) mg/dL Est Cr Clr Drug Dosing 50.49 mL/min Estimated GFR (MDRD) > 60 (>60) mL/min BUN/Creatinine Ratio 25.0 H (14-18) Glucose 319 H (83-115) mg/dL POC Glucose 311 H (83-110) mg/dL Calcium 8.3 L (8.5-10.1) mg/dL Magnesium 2.0 (1.8-2.4) mg/dl C-Reactive Protein 0.2 (<1.0) mg/dL NT-Pro-B Natriuret Pep 1122 H (0-450) pg/mL 06/30/17 Range/Units 11:38 WBC (4.23-9.07) K/mm3 RBC (4.63-6.08) M/mm3 Hgb (13.7-17.5) gm/L Hct (40.1-51.0) % MCV (79.0-92.2) fl MCH (25.7-32.2) pg MCHC (32.2-35.5) g/dl RDW Std Deviation (35.1-43.9) fL Plt Count (163-337) K/mm3 MPV (9.4-12.3) fl Neut % (Auto) (34.0-67.9) % Lymph % (Auto) (21.8-53.1) % [place] % (Auto) (5.3-12.2) % Eos % (Auto) (0.8-7.0) Baso % (Auto) (0.1-1.2) % Neut # (Auto) (1.78-5.38) K/mm3 Lymph # (Auto) (1.32-3.57) K/mm3 [place] # (Auto) (0.30-0.82) K/mm3 Eos # (Auto) (0.04-0.54) K/mm3 Baso # (Auto) (0.01-0.08) K/mm3 Manual Slide Review Sodium (136-145) mEq/L Potassium (3.5-5.1) mEq/L Chloride (98-107) mEq/L Carbon Dioxide (21-32) mEq/L Anion Gap (5-15) BUN (7-18) mg/dL Creatinine (0.7-1.3) mg/dL Est Cr Clr Drug Dosing mL/min Estimated GFR (MDRD) (>60) mL/min BUN/Creatinine Ratio (14-18) Glucose (83-115) mg/dL POC Glucose 359 H (83-110) mg/dL Calcium (8.5-10.1) mg/dL Magnesium (1.8-2.4) mg/dl C-Reactive Protein (<1.0) mg/dL NT-Pro-B Natriuret Pep (0-450) pg/mL Med Orders - Current: Current Medications Acetaminophen (Tylenol) 650 mg PO Q6H PRN PRN Reason: Pain/Fever Acetaminophen (Tylenol) 650 mg PO Q6H PRN PRN Reason: Pain/Fever Albuterol/Ipratropium (Duoneb 3.0-0.5 Mg/3 Ml) 3 ml NEB QIDRT PRN PRN Reason: Shortness of Breath Last Admin: 06/29/17 15:11 Dose: 3 ml Apixaban (Eliquis) 2.5 mg PO BID [facility] Last Admin: 06/30/17 09:15 Dose: 2.5 mg Artificial Tears (Isopto Tears 0.5% Ophth Soln) 0 ml EYEBOTH BID PRN PRN Reason: Dry Eyes Artificial Tears (Isopto Tears 0.5% Ophth Soln) 0 ml EYEBOTH BID [facility] Last Admin: 06/30/17 09:21 Dose: 1 drop Calcium Carbonate/Glycine (Tums) 500 mg PO DAILY [facility] Last Admin: 06/30/17 09:19 Dose: 500 mg Dextrose/Water (Dextrose 50% In Water) 50 ml IVPUSH ASDIRECTED PRN PRN Reason: Hypoglycemia Last Admin: 06/29/17 17:16 Dose: 50 ml Diltiazem HCl (Cardizem) 60 mg PO Q8H [facility] Last Admin: 06/30/17 09:19 Dose: Not Given Docusate Sodium (Colace) 200 mg PO BID [facility] Last Admin: 06/30/17 09:17 Dose: 200 mg Donepezil HCl (Aricept) 10 mg PO DAILY [facility] Last Admin: 06/30/17 09:20 Dose: 10 mg Duloxetine HCl (Cymbalta) 60 mg PO DAILY [facility] Last Admin: 06/30/17 09:19 Dose: 60 mg Ferrous Sulfate (Ferrous Sulfate) 325 mg PO DAILY [facility] Last Admin: 06/30/17 09:19 Dose: 325 mg Furosemide (Lasix) 20 mg IVPUSH DAILY@1600 [facility] Last Admin: 06/29/17 15:16 Dose: Not Given Furosemide (Lasix) 40 mg IVPUSH DAILY@0600 [facility] Last Admin: 06/30/17 06:15 Dose: 40 mg Gabapentin (Neurontin) 300 mg PO BID [facility] Last Admin: 06/30/17 09:18 Dose: 300 mg Hydralazine HCl (Apresoline) 10 mg IVPUSH Q6H PRN PRN Reason: Hypertension Piperacillin Sod/Tazobactam (Sod 4.5 gm/ Sodium Chloride) 100 mls @ 25 mls/hr IV Q8H [facility] Last Admin: 06/30/17 09:21 Dose: 25 mls/hr Dextrose/Sodium Chloride (Dextrose 5%-Normal Saline) 1,000 mls @ 75 mls/hr IV ASDIRECTED [facility] Last Admin: 06/30/17 08:06 Dose: 75 mls/hr Insulin Aspart (Novolog) 0 unit SUBCUT QIDACANDBED [facility] PRN Reason: Protocol Last Admin: 06/30/17 13:34 Dose: 5 units Insulin Detemir (Levemir) 11 unit SUBCUT BID [facility] Last Admin: 06/29/17 08:56 Dose: 11 units Levalbuterol HCl (Xopenex) 1.25 mg NEB QIDRT PRN PRN Reason: Shortness of Breath Magnesium Oxide (Magnesium Oxide) 400 mg PO DAILY [facility] Last Admin: 06/30/17 09:18 Dose: 400 mg Metformin HCl (Glucophage) 250 mg PO BIDMEALS [facility] Last Admin: 06/29/17 06:30 Dose: Not Given Metoprolol Tartrate (Lopressor) 5 mg IVPUSH Q4H PRN PRN Reason: Tachycardia Last Admin: 06/26/17 12:45 Dose: 5 mg Metoprolol Tartrate (Lopressor) 50 mg PO Q12HR [facility] Last Admin: 06/30/17 09:19 Dose: 50 mg Pantoprazole Sodium (Protonix) 40 mg PO BIDAC [facility] Last Admin: 06/30/17 06:15 Dose: 40 mg Orajel 1 Applic 0 each BUCCAL BID [facility] Last Admin: 06/30/17 09:22 Dose: Not Given Polyethylene Glycol (Miralax) 17 gm PO DAILY [facility] Last Admin: 06/30/17 09:20 Dose: 17 gm Risperidone (Risperidal) 0.125 mg PO DAILY [facility] Last Admin: 06/30/17 09:16 Dose: 0.125 mg Saccharomyces Boulardii (Florastor) 250 mg PO DAILY [facility] Last Admin: 06/30/17 09:17 Dose: 250 mg Senna (Senna) 17.2 mg PO DAILY [facility] Last Admin: 06/30/17 09:17 Dose: 17.2 mg Sodium Chloride (Saline Flush) 10 ml FLUSH ASDIRECTED PRN PRN Reason: Keep Vein Open Last Admin: 06/23/17 18:59 Dose: 10 ml Tamsulosin HCl (Flomax) 0.4 mg PO DAILY [facility] Last Admin: 06/30/17 09:19 Dose: 0.4 mg Tramadol HCl (Ultram) 100 mg PO TID [facility] Last Admin: 06/30/17 09:17 Dose: 100 mg Discontinued Medications Acetaminophen (Tylenol) 650 mg PO NOW ONE Stop: 06/23/17 20:57 Last Admin: 06/23/17 21:09 Dose: 650 mg Acetaminophen (Tylenol) 650 mg PO Q4H PRN PRN Reason: Pain/Fever Last Admin: 06/24/17 06:26 Dose: 650 mg Apixaban (Eliquis) 2.5 mg PO BID [facility] Dextrose/Water (Dextrose 50% In Water) 25 ml IVPUSH ASDIRECTED ONE Stop: 06/23/17 21:50 Last Admin: 06/23/17 22:05 Dose: 25 ml Dextrose/Water (Dextrose 50% In Water) Confirm Administered Dose 50 ml .ROUTE .STK-MED ONE Stop: 06/29/17 13:43 Last Admin: 06/29/17 14:02 Dose: 50 ml Furosemide (Lasix) 20 mg IVPUSH NOW ONE Stop: 06/24/17 09:45 Last Admin: 06/24/17 10:04 Dose: 20 mg Furosemide (Lasix) 20 mg IVPUSH DAILY [facility] Last Admin: 06/26/17 09:21 Dose: 20 mg Furosemide (Lasix) 40 mg IV NOW ONE Stop: 06/25/17 08:12 Last Admin: 06/25/17 08:55 Dose: Not Given Furosemide (Lasix) 40 mg IVPUSH NOW ONE Stop: 06/25/17 14:20 Last Admin: 06/25/17 14:30 Dose: 40 mg Furosemide (Lasix) 40 mg IVPUSH DAILY [facility] Last Admin: 06/28/17 09:29 Dose: 40 mg Sodium Chloride (Normal Saline) 250 mls @ 999 mls/hr IV ONETIME ONE Stop: 06/23/17 19:18 Last Admin: 06/24/17 01:22 Dose: Not Given Sodium Chloride (Normal Saline) 500 mls @ 999 mls/hr IV ONETIME ONE Stop: 06/23/17 19:33 Last Admin: 06/23/17 19:13 Dose: 999 mls/hr Sodium Chloride (Normal Saline) 1,000 mls @ 100 mls/hr IV ONETIME ONE Stop: 06/24/17 06:54 Last Admin: 06/23/17 21:05 Dose: 100 mls/hr Ceftriaxone Sodium 2 gm/ (Sodium Chloride) 100 mls @ 100 mls/hr IV ONETIME ONE Stop: 06/23/17 23:13 Last Admin: 06/23/17 22:35 Dose: 100 mls/hr Sodium Chloride (Normal Saline) 500 mls @ 999 mls/hr IV ONETIME ONE Stop: 06/23/17 22:54 Last Admin: 06/24/17 01:23 Dose: Not Given Sodium Chloride (Normal Saline) 1,000 mls @ 999 mls/hr IV ONETIME ONE Stop: 06/23/17 23:24 Last Admin: 06/23/17 22:38 Dose: 999 mls/hr Levofloxacin/Dextrose 750 mg/ (Premix) 150 mls @ 100 mls/hr IV ONETIME ONE Stop: 06/24/17 02:39 Last Admin: 06/24/17 01:40 Dose: 100 mls/hr Sodium Chloride (Normal Saline) 1,000 mls @ 75 mls/hr IV ASDIRECTED [facility] Last Admin: 06/24/17 06:26 Dose: 75 mls/hr Piperacillin Sod/Tazobactam (Sod 4.5 gm/ Sodium Chloride) 100 mls @ 200 mls/hr IV ONETIME ONE Stop: 06/24/17 09:29 Last Admin: 06/24/17 09:34 Dose: 200 mls/hr Levofloxacin/Dextrose 750 mg/ (Premix) 150 mls @ 100 mls/hr IV Q24H [facility] Last Admin: 06/26/17 01:26 Dose: 100 mls/hr Sodium Chloride (Normal Saline) Confirm Administered Dose 100 mls @ as directed .ROUTE .STK-MED ONE Stop: 06/25/17 09:03 Last Admin: 06/25/17 09:27 Dose: 100 ml Magnesium Sulfate 2 gm/ Premix 50 mls @ 25 mls/hr IV ONETIME ONE Stop: 06/25/17 11:42 Last Admin: 06/25/17 10:52 Dose: 25 mls/hr Sodium Chloride (Normal Saline) Confirm Administered Dose 100 mls @ as directed .ROUTE .STK-MED ONE Stop: 06/25/17 11:44 Last Admin: 06/25/17 12:18 Dose: 100 ml Sodium Chloride (Normal Saline) 500 mls @ 999 mls/hr IV .BOLUS ONE Stop: 06/29/17 16:04 Last Admin: 06/29/17 15:41 Dose: 999 mls/hr Iopamidol (Isovue-300 (61%)) 150 ml IVPUSH ONETIME ONE Stop: 06/23/17 21:43 Last Admin: 06/23/17 21:58 Dose: 125 ml Levalbuterol HCl (Xopenex) 1.25 mg NEB QIDRT [facility] Last Admin: 06/28/17 10:44 Dose: 1.25 mg Levalbuterol HCl (Xopenex) 1.25 mg NEB QIDRT PRN PRN Reason: SOB/Wheezing Methylprednisolone Sodium Succinate (Solu-Medrol) 40 mg IVPUSH Q12H [facility] Last Admin: 06/27/17 00:33 Dose: 40 mg Methylprednisolone Sodium Succinate (Solu-Medrol) 40 mg IVPUSH Q24H [facility] Last Admin: 06/27/17 13:38 Dose: 40 mg Methylprednisolone Sodium Succinate (Solu-Medrol) 125 mg IVPUSH ONETIME ONE Stop: 06/29/17 17:44 Last Admin: 06/29/17 18:02 Dose: 125 mg Sodium Chloride (Saline Flush) 10 ml FLUSH ONETIME PRN PRN Reason: IV FLUSH Last Admin: 06/23/17 21:58 Dose: 10 ml - Exam Quality Assessment: Supplemental Oxygen, Urine Catheter, DVT Prophylaxis General: Lethargic HEENT: Pupils Equal, Pupils Reactive, EOMI Neck: Supple, Trachea Midline Lungs: Normal Respiratory Effort, Decreased Breath Sounds Cardiovascular: Regular Rate, Irregular Rhythm GI/Abdominal Exam: Normal Bowel Sounds, Soft, Non-Tender, No Organomegaly, No Distention (Male) Exam: Deferred Back Exam: Normal Inspection Extremities: Normal Inspection, Non-Tender, No Pedal Edema Skin: Warm Neurological: Other (localizes pain; moving all 4 extremities) Psy/Mental Status: Other (lethargic) - Problem List Review Problem List Initiated/Reviewed/Updated: Yes - My Orders Last 24 Hours: My Active Orders 06/29/17 17:00 Dextrose 5%-0.9% NaCl [Dextrose 5%-Normal Saline] 1,000 ml IV ASDIRECTED 06/29/17 17:03 Dextrose 50% in Water 50 ml IVPUSH ASDIRECTED PRN 06/29/17 20:00 Accu Check [Blood Glucose Check, Bedside] [RC] Q4HR 06/30/17 Lunch Soft Diet [DIET] - Plan Plan:: I/P: Acute: PNA -Questionable -Fever (100.5) at SNF, weakness, lethargy -Hospitalized 04/23/17-04/30/17 with pneumonia -Saturations of 91 on room air -No leukocytosis, CRP 1.2-->4.0-->2.7-->1.6 -Negative mycoplasma and influenza screen -Viral panel pending -Levaquin and Zosyn IV-->discontinue levaquin -O2 - titrate as needed -Xopenex -RT/IS/Acapella -Solu-medrol - 40mg Q12 --> decrease to 40mg Q24hr-->stopped -Repeat CXR (06/26/17) - improved aeration in left lung base, emphysematous change. -Repeat CXR tomorrow -Sputum culture - negative Hypoglycemia---started D50.9 NS; changed to BS checks q2 hours, sliding scale only. AMS---neuro checks; metabolic change (BS); correct, maintain BS>100. CHF exacerbation--stable, no significant bump in BNP with fluid required. -SOB on presentation -1-2+ pitting edema, mild rhonchi on physical exam, improved -Last echo 12/11/16--EF of 55-65%, mild AV stenosis, mild biatrial dilation, mildto moderate MVR, mild to mod elevated RV pressure at 47.9 -Repeat echo (06/25/17) - LVEF 60-65% -Normal LV systolic function -Right ventricular size is mildly enlarged -Moderate aortic valve stenosis -At least moderate mitral valve regurg -Right ventricular systolic pressure is moderately elevated -Inferior vena cava is dilated with respiratory size variation greater than 50% -No regional wall motion abnormalities -Mild biatrial dilation -Atrial fibrillation -No significant change from 12/11/16. -Lasix 20mg IVP daily, hold PO lasix -> switch to 40 mg IVP daily, add 20mg IVP lasix in evening -Salt restriction diet -Diurese Anemia, stable -Was present during last stay - received blood then -Iron studies on 04/25/17 showed Iron of 46, normal B12 and folate -Occult blood negative -Hgb 9.7-->9.3-->8.0-->10.2-->9.8 -Decrease eliquis dose from 5mg to 2.5mg BID -Transfused 2 units (06/25/17) lasix after -Suggest f/u with Dr. Diaz outpatient as he has seen him before for this Neutropenia, resolved -Protective isolation --> discontinue -Received blood -Monitor with daily labs Chronic Type II DM - Danyelle meds, sliding scale, QID accuchecks, A1C on 04/25/17 9.6 A-fib on eliquis COPD/Hx of PNA Former Tobacco, 1970 HTN--stable HLD-lipid panel on 04/25/17 ok, cont statin History of CAD/CT CVA Depression Other: Admitted to medical floor on telemetry overnight, upgrade to ICU --> decrease to medical floor status GI/DVT prophylax- Teds and home eliquis Home meds Daily Labs PT/OT consult SW/CSM consult Patient is DNR status PCP is Dr. Turner with [facility] in [place] LOS >96 hrs due to slow response to treatment, resp treatment/CHF
[2017-06-30] MEDS: Furosemide 20 MG/2 ML VIAL IVPUSH SCH (15:31)
[2017-06-30] MEDS: Albuterol/Ipratropium 3.0-0.5 MG/3 ML Neb Soln NEB PRN (17:16)
[2017-07-01] MEDS: Diltiazem IR 60 MG Tab PO SCH ×2 (01:45→09:49)
[2017-07-01] MEDS: Piperacillin/Tazobactam 4.5 GM in Sodium Chloride 0.9% 100 ML IV SCH ×2 (01:45→08:22)
[2017-07-01] MEDS: Furosemide 40 MG/4 ML VIAL IVPUSH SCH (07:00)
[2017-07-01] MEDS: Pantoprazole 40 MG Tab.CR PO SCH (07:01)
--- NOTE | 2017-07-01 07:59 | CR ---
Chest: Two views of the chest were obtained. Comparison: Prior chest x-ray of 06/26/[address] of 06/23/17.. Increased lung markings are seen particularly within the right lung base. Nodule is identified within the right lung base with no correlating finding on chest CT of 06/23/17 and this nodule is therefore felt to be incidental. Heart size at the upper limits of normal. Bony structures are grossly intact. Impression: 1. Findings as noted above. No appreciable change is seen from previous study. Diagnostic code #2 Agree with preliminary report issued by [facility] ([facility] preliminary report dictated on 06/29/17, 9:54 AM Central Time)
[2017-07-01] MEDS: Insulin Aspart 100 Units/ML 3 ML Pen SUBCUT SCH ×2 (08:23→11:20)
[2017-07-01] MEDS: Saccharomyces Boulardii (Probiotic) 250 MG Cap PO SCH (08:24)
[2017-07-01] MEDS: Magnesium Oxide 400 MG Tab PO SCH (08:24)
[2017-07-01] MEDS: Polyethylene Glycol 3350 Powder 17 GM Packet PO SCH (08:24)
[2017-07-01] MEDS: Hypromellose 0.5% Ophth Soln 15 ML Bottle EYEBOTH SCH (08:24)
[2017-07-01] MEDS: Apixaban 5 MG Tab PO SCH (08:25)
[2017-07-01] MEDS: Ferrous Sulfate 325 MG Tab PO SCH (08:25)
[2017-07-01] MEDS: Docusate Sodium 100 MG Cap PO SCH (08:25)
[2017-07-01] MEDS: traMADol 50 MG Tab PO SCH (08:26)
[2017-07-01] MEDS: Metoprolol Tartrate 50 MG Tab PO SCH (08:27)
[2017-07-01] MEDS: Tamsulosin 0.4 MG Cap.ER PO SCH (08:28)
[2017-07-01] MEDS: Donepezil 10 MG Tab PO SCH (08:28)
[2017-07-01] MEDS: Calcium Carbonate 500 MG Tab.Chew PO SCH (08:28)
[2017-07-01] MEDS: Sennosides 8.6 MG Tab PO SCH (08:28)
[2017-07-01] MEDS: risperiDONE 0.25 MG Tab PO SCH (08:28)
[2017-07-01] MEDS: DULoxetine 30 MG Cap PO SCH (08:28)
[2017-07-01] MEDS: ORAJEL BUCCAL SCH (08:29)
[2017-07-01] MEDS: Gabapentin 300 MG Cap PO SCH (08:29)
[2017-07-01] MEDS: Insulin Detemir 100 Units/ML 3 ML Pen SUBCUT SCH (08:37)
[2017-07-01 11:53] VITALS: BP 103/70
--- NOTE | 2017-07-01 12:58 | PCM.DCSUM1 ---
Discharge Summary - Hospital Course Free Text/Narrative:: Florencio Werner is a 86 yo male, well known to this service, who presents to our ed on 06/24/17 via Ambulance with lethargy and confusion. He reportedly had a temperature 100.5 at the skilled nursing. Denies any vomiting or diarrhea. States he always has chest and abdominal pain. He is not normally on oxygen. Oxygen saturations on room air upon ED arrival are 91%. Symptoms reported started today. He was recently hospitalized in April for pneumonia. He is a diabetic and his blood sugars on ED arrival was 124. Per the patient's daughter , he has had heme positive stools in the past. Recheck this as his blood pressure was running low. They're waiting to determine a plan of care for this. He does take Ahlquist 5 mg twice a day. On ED arrival temperature 37.7. Pulse 104. Blood pressure 96/75. Pulse ox 91% . 12-lead EKG was obtained and shows A. fib at a rate of 7840 bpm. T-wave inversion is noted in V1 through V3. There is a right bundle branch block present. No change from April. This is reviewed by the ED provider. Labs are obtained: WBC is 7.69. Hemoglobin low at 9.7. Hematocrit low at 30.6. He is macrocytic. Puts on the low end of normal at 181,000. Neutrophils are slightly elevated at 64%. Therefore percent band neutrophils. Sodium was good at 138. Potassium 4.0. Chloride 101. From an accident 32. Anion gap 9.0. BUN 16. Creatinine 1.0. GFR greater than 60. Glucose is found to be low at 71. Lactic acid 1.2. Calcium 8.5. Total bilirubin high at 1.6. AST is 18, ALT is 23, alkaline phosphatase at 79. Protein is low at 5.8. Albumin 3.6. ProBNP is high at 2292. UA is negative however one plus bilirubin, 2+-year-old bilirubin and moderate mucous are noted. Mycoplasma pneumo is negative. He is given Tylenol, Rocephin 2 g, and normal saline. Chest x-ray is obtained and shows questionable fibrosis in the lower lungs. No definitive pneumonia. CT of the chest with IV contrast is obtained and interpreted by the vrad as right basilar as well as lingular infiltrates consistent with pneumonia. When compared to prior study dated 04/25/17 the pleural effusions have resolved. CT of the abdomen and pelvis with contrast was obtained and interpreted by Willy as sigmoid diverticulosis but no evidence for diverticulitis. Bibasilar lung infiltrates as well as lingular infiltrate suggestive of bibasilar pneumonia and lingula pneumonia. He carries a history of: A. fib, angina, arrhythmia, hypertension, [place], rheumatic aortic valve disorder, CAD, asthma, recurrent bronchitis, COPD, recurrent pneumonia, GERD, BPH, arthritis, chronic back pain, osteoarthritis, CVA, depression, type II DM, iron deficiency anemia. He is a former smoker. His subsequently admitted to the medical floor with telemetry. CODE STATUS is DNR. PCP is Dr. Turner at [facility]. - Discharge Data Discharge Date: 07/01/17 (admit date06/23/17) Discharge Disposition: DC/Tfer to SNF 03 Condition: Good - Discharge Diagnosis/Problem(s) (1) Hypoxia SNOMED Code(s): 210483865 ICD Code: R09.02 - HYPOXEMIA Status: Resolved Priority: High Current Visit: Yes (2) Pneumonia SNOMED Code(s): 416843058 ICD Code: J18.9 - PNEUMONIA, UNSPECIFIED ORGANISM Status: Resolved Priority: High Current Visit: Yes Qualifiers: Pneumonia type: due to unspecified organism Laterality: bilateral Lung location: lower lobe of lung Qualified Code(s): J18.9 - Pneumonia, unspecified organism (3) Atrial fibrillation SNOMED Code(s): 68521980 ICD Code: I48.91 - UNSPECIFIED ATRIAL FIBRILLATION Status: Chronic Priority: Medium Current Visit: Yes Qualifiers: Atrial fibrillation type: chronic Qualified Code(s): I48.2 - Chronic atrial fibrillation (4) COPD (chronic obstructive pulmonary disease) SNOMED Code(s): 84734577 ICD Code: J44.9 - CHRONIC OBSTRUCTIVE PULMONARY DISEASE, UNSPECIFIED Status : Chronic Priority: Medium Current Visit: Yes Qualifiers: Emphysema type: unspecified (5) Anemia SNOMED Code(s): 402842576 ICD Code: D64.9 - ANEMIA, UNSPECIFIED Status: Chronic Priority: Low Current Visit: Yes Qualifiers: Anemia type: iron deficiency Iron deficiency anemia type: unspecified iron deficiency Qualified Code(s): D50.9 - Iron deficiency anemia, unspecified - Patient Summary/Data Operative Procedure(s) Performed: None Complications: None Consults: Consultations 06/24/17 01:11 OT Evaluation and Treatment [CONS] Routine 06/24/17 08:00 PT Evaluation and Treatment [CONS] Routine 06/24/17 09:45 Consult to Case Management [CONS] Routine 06/24/17 12:16 Consult to Respiratory Therapy [Respiratory Care Assess and Treatment] [CONS] Routine 06/26/17 17:12 Consult to Spiritual Care [CONS] Routine Labs Pending at D/C: None Recommended Follow-up Testing/Procedures: Cont with restorative care at [facility] Follow up with PCP, Dr. Turner within one week of discharge. Planned Operative Procedure(s) after DC: None Hospital Course: I/P: Acute: PNA----did well- all abx DC'd, no need for abx on DC. -Questionable -Fever (100.5) at SNF, weakness, lethargy -Hospitalized 04/23/17-04/30/17 with pneumonia -Saturations of 91 on room air -No leukocytosis, CRP 1.2-->4.0-->2.7-->1.6 -Negative mycoplasma and influenza screen -Viral panel pending -Levaquin and Zosyn IV-->discontinue levaquin -O2 - titrate as needed -Xopenex -RT/IS/Acapella -Solu-medrol - 40mg Q12 --> decrease to 40mg Q24hr-->stopped---no need for steroids on DC -Repeat CXR (06/26/17) - improved aeration in left lung base, emphysematous change. -Repeat CXR tomorrow -Sputum culture - negative Hypoglycemia---started D50.9 NS; changed to BS checks q2 hours, sliding scale only.---sugars stabilized now AMS---neuro checks; metabolic change (BS); correct, maintain BS>100. CHF exacerbation--stable, no significant bump in BNP with fluid required. -SOB on presentation -1-2+ pitting edema, mild rhonchi on physical exam, improved -Last echo 12/11/16--EF of 55-65%, mild AV stenosis, mild biatrial dilation, mildto moderate MVR, mild to mod elevated RV pressure at 47.9 -Repeat echo (3/6/18) - LVEF 60-65% -Normal LV systolic function -Right ventricular size is mildly enlarged -Moderate aortic valve stenosis -At least moderate mitral valve regurg -Right ventricular systolic pressure is moderately elevated -Inferior vena cava is dilated with respiratory size variation greater than 50% -No regional wall motion abnormalities -Mild biatrial dilation -Atrial fibrillation -No significant change from 12/11/16. -Lasix 20mg IVP daily, hold PO lasix -> switch to 40 mg IVP daily, add 20mg IVP lasix in evening -Salt restriction diet -Diurese Anemia, stable -Was present during last stay - received blood then -Iron studies on 04/25/17 showed Iron of 46, normal B12 and folate -Occult blood negative -Hgb 9.7-->9.3-->8.0-->10.2-->9.8 -Decrease eliquis dose from 5mg to 2.5mg BID -Transfused 2 units (06/25/17) lasix after -Suggest f/u with Dr. Diaz outpatient as he has seen him before for this Neutropenia, resolved -Protective isolation --> discontinue -Received blood -Monitor with daily labs Chronic Type II DM - Danyelle meds, sliding scale, QID accuchecks, A1C on 04/25/17 9.6 A-fib on eliquis COPD/Hx of PNA Former Tobacco, 1970 HTN--stable HLD-lipid panel on 04/25/17 ok, cont statin History of CAD/[place] CVA Depression Other: Admitted to medical floor on telemetry overnight, upgrade to ICU --> decrease to medical floor status GI/DVT prophylax- Teds and home eliquis Home meds Daily Labs PT/OT consult SW/CSM consult Patient is DNR status PCP is Dr. Turner with [facility] in [place] LOS >96 hrs due to slow response to treatment, resp treatment/CHF - Patient Instructions Diet: Heart Healthy Diet Activity: As Tolerated Driving: Do Not Drive Showering/Bathing: May Shower Notify Provider of: Fever, Increased Pain, Nausea and/or Vomiting - Discharge Plan Prescriptions/Med Rec: Apixaban [Eliquis] 2.5 mg PO BID #60 tablet Home Medications: Home Meds Albuterol Sulfate [Proair Respiclick] 2 puff INH TID 12/23/15 [History] DULoxetine [Cymbalta] 60 mg PO DAILY 04/13/15 [History] Docusate Sodium [Colace] 200 mg PO BID 04/13/15 [History] Ferrous Sulfate 324 mg PO DAILY 04/13/15 [History] Propylene Glycol/Peg 400 [Systane 0.3-0.4% Eye Drops] 1 drop EYEBOTH BID [History] Tamsulosin [Flomax] 0.4 mg PO DAILY 09/08/15 [History] Acetaminophen 650 mg PO Q6H PRN 11/05/16 [History] Gabapentin [Neurontin] 300 mg PO BID 12/08/16 [History] Polyethylene Glycol 3350 [MiraLAX] 17 gm PO DAILY 12/08/16 [History] traMADol [Ultram] 100 mg PO TID 12/08/16 [History] Calcium Carbonate [Tums] 1 tab PO DAILY 12/09/16 [History] Magnesium Oxide 400 mg PO DAILY #30 tablet 12/12/16 [Rx] Omeprazole 20 mg PO BIDAC #60 cap.cr 12/12/16 [Rx] Donepezil HCl [Aricept] 10 mg PO DAILY 04/23/17 [History] Furosemide [Lasix] 40 mg PO DAILY 04/23/17 [History] Menthol [Biofreeze] 1 applic TOP ASDIRECTED PRN 04/23/17 [History] Menthol [Biofreeze] 1 applic TOP TID 04/23/17 [History] Orajel 1 applic BUCCAL BID 04/23/17 [History] Propylene Glycol/PEG 400/Pf [Systane 0.3-0.4% Eye Drops] 1 drop EYEBOTH BID PRN 04/23/17 [History] Sennosides [Senna] 2 tab PO DAILY 04/23/17 [History] Vitamin E 400 unit PO DAILY 04/23/17 [History] Diltiazem IR [Cardizem] 60 mg PO Q8H #60 tablet 04/30/17 [Rx] Metoprolol Tartrate [Lopressor] 50 mg PO Q12HR #60 tablet 04/30/17 [Rx] metFORMIN [Glucophage] 250 mg PO BIDMEALS #60 tablet 04/30/17 [Rx] Albuterol Sulfate 1 dose INH Q8H PRN 06/23/17 [History] Insulin Aspart [NovoLOG] 1 unit SQ TIDMEALS 06/23/17 [History] Insulin Aspart [NovoLOG] 10 unit SUBCUT BID 06/23/17 [History] Insulin Glargine,Hum.Rec.Anlog [Lantus Solostar] 22 unit SQ DAILY 06/23/17 [ History] Lactobacillus Acidophilus/Fos [Acidophilus Probiotic Tablet] 1 cap PO DAILY 08/07 [History] risperiDONE [RisperiDAL] 0.125 mg PO DAILY 06/23/17 [History] Insulin Aspart [Novolog Flexpen] 12 units SQ DAILY 06/24/17 [History] Apixaban [Eliquis] 2.5 mg PO BID #60 tablet 07/01/17 [Rx] Patient Handouts: Chronic Obstructive Pulmonary Disease Exacerbation, Easy-to- Read, Anemia, Community-Acquired Pneumonia, Adult, [id number] Forms: ED Department Discharge Referrals: Juma Turner MD [Primary Care Provider] - - Discharge Summary/Plan Comment DC Time >30 min.: Yes (40 min) - General Info Date of Service: 07/01/17 Admission Dx/Problem (Free Text: Doing well. Plans for DC back to SNF today. Functional Status: Reports: Pain Controlled, Tolerating Diet, Urinating. Denies : New Symptoms - Review of Systems General: Reports: Weakness (generalized---improved/chronic) HEENT: Reports: No Symptoms Pulmonary: Reports: No Symptoms. Denies: Cough, Sputum Cardiovascular: Reports: No Symptoms. Denies: Chest Pain, Palpitations Gastrointestinal: Reports: No Symptoms Neurological: Reports: No Symptoms Psychiatric: Reports: No Symptoms - Patient Data Vitals - Most Recent: Last Vital Signs Temp 97.5 F 07/01/17 11:27 Pulse 107 H 07/01/17 11:27 Resp 19 07/01/17 11:27 BP 103/70 07/01/17 11:27 Pulse Ox 99 07/01/17 11:27 Weight - Most Recent: 185 lb 8 oz I&O - Last 24 hours: Intake & Output 06/30/17 07/01/17 07/01/17 22:59 06:59 14:59 Intake Total 1592 660 60 Output Total 200 Balance 1392 660 60 Lab Results - Last 24 hrs: Laboratory Results - last 24 hr 06/30/17 06/30/17 07/01/17 Range/Units 16:45 21:23 06:42 WBC (4.23-9.07) K/mm3 RBC (4.63-6.08) M/mm3 Hgb (13.7-17.5) gm/L Hct (40.1-51.0) % MCV (79.0-92.2) fl MCH (25.7-32.2) pg MCHC (32.2-35.5) g/dl RDW Std Deviation (35.1-43.9) fL Plt Count (163-337) K/mm3 MPV (9.4-12.3) fl Neut % (Auto) (34.0-67.9) % Lymph % (Auto) (21.8-53.1) % [place] % (Auto) (5.3-12.2) % Eos % (Auto) (0.8-7.0) Baso % (Auto) (0.1-1.2) % Neut # (Auto) (1.78-5.38) K/mm3 Lymph # (Auto) (1.32-3.57) K/mm3 [place] # (Auto) (0.30-0.82) K/mm3 Eos # (Auto) (0.04-0.54) K/mm3 Baso # (Auto) (0.01-0.08) K/mm3 Manual Slide Review Sodium (136-145) mEq/L Potassium (3.5-5.1) mEq/L Chloride (98-107) mEq/L Carbon Dioxide (21-32) mEq/L Anion Gap (5-15) BUN (7-18) mg/dL Creatinine (0.7-1.3) mg/dL Est Cr Clr Drug Dosing mL/min Estimated GFR (MDRD) (>60) mL/min BUN/Creatinine Ratio (14-18) Glucose (83-115) mg/dL POC Glucose 293 H 259 H 185 H (83-110) mg/dL Calcium (8.5-10.1) mg/dL Magnesium (1.8-2.4) mg/dl C-Reactive Protein (<1.0) mg/dL NT-Pro-B Natriuret Pep (0-450) pg/mL 07/01/17 07/01/17 07/01/17 Range/Units 07:00 07:00 07:00 WBC 6.47 (4.23-9.07) K/mm3 RBC 3.23 L (4.63-6.08) M/mm3 Hgb 10.6 L (13.7-17.5) gm/L Hct 33.0 L (40.1-51.0) % MCV 102.2 H (79.0-92.2) fl MCH 32.8 H (25.7-32.2) pg MCHC 32.1 L (32.2-35.5) g/dl RDW Std Deviation 76.6 H (35.1-43.9) fL Plt Count 113 L (163-337) K/mm3 MPV 10.7 (9.4-12.3) fl Neut % (Auto) 39.6 (34.0-67.9) % Lymph % (Auto) 48.1 (21.8-53.1) % [place] % (Auto) 8.8 (5.3-12.2) % Eos % (Auto) 1.4 (0.8-7.0) Baso % (Auto) 0.2 (0.1-1.2) % Neut # (Auto) 2.57 (1.78-5.38) K/mm3 Lymph # (Auto) 3.11 (1.32-3.57) K/mm3 [place] # (Auto) 0.57 (0.30-0.82) K/mm3 Eos # (Auto) 0.09 (0.04-0.54) K/mm3 Baso # (Auto) 0.01 (0.01-0.08) K/mm3 Manual Slide Review Abnormal smear Sodium 139 (136-145) mEq/L Potassium 3.7 (3.5-5.1) mEq/L Chloride 99 (98-107) mEq/L Carbon Dioxide 34 H (21-32) mEq/L Anion Gap 9.7 (5-15) BUN 24 H (7-18) mg/dL Creatinine 1.1 (0.7-1.3) mg/dL Est Cr Clr Drug Dosing 45.90 mL/min Estimated GFR (MDRD) > 60 (>60) mL/min BUN/Creatinine Ratio 21.8 H (14-18) Glucose 178 H (83-115) mg/dL POC Glucose (83-110) mg/dL Calcium 8.2 L (8.5-10.1) mg/dL Magnesium 1.9 (1.8-2.4) mg/dl C-Reactive Protein 0.2 (<1.0) mg/dL NT-Pro-B Natriuret Pep 1334 H (0-450) pg/mL 07/01/17 Range/Units 10:59 WBC (4.23-9.07) K/mm3 RBC (4.63-6.08) M/mm3 Hgb (13.7-17.5) gm/L Hct (40.1-51.0) % MCV (79.0-92.2) fl MCH (25.7-32.2) pg MCHC (32.2-35.5) g/dl RDW Std Deviation (35.1-43.9) fL Plt Count (163-337) K/mm3 MPV (9.4-12.3) fl Neut % (Auto) (34.0-67.9) % Lymph % (Auto) (21.8-53.1) % [place] % (Auto) (5.3-12.2) % Eos % (Auto) (0.8-7.0) Baso % (Auto) (0.1-1.2) % Neut # (Auto) (1.78-5.38) K/mm3 Lymph # (Auto) (1.32-3.57) K/mm3 [place] # (Auto) (0.30-0.82) K/mm3 Eos # (Auto) (0.04-0.54) K/mm3 Baso # (Auto) (0.01-0.08) K/mm3 Manual Slide Review Sodium (136-145) mEq/L Potassium (3.5-5.1) mEq/L Chloride (98-107) mEq/L Carbon Dioxide (21-32) mEq/L Anion Gap (5-15) BUN (7-18) mg/dL Creatinine (0.7-1.3) mg/dL Est Cr Clr Drug Dosing mL/min Estimated GFR (MDRD) (>60) mL/min BUN/Creatinine Ratio (14-18) Glucose (83-115) mg/dL POC Glucose 214 H (83-110) mg/dL Calcium (8.5-10.1) mg/dL Magnesium (1.8-2.4) mg/dl C-Reactive Protein (<1.0) mg/dL NT-Pro-B Natriuret Pep (0-450) pg/mL [facility] Results - Last 24 hrs: Microbiology 06/24/17 12:55 Respiratory Virus Panel (PCR) ([facility]) - Final Nasopharyngeal Swab Med Orders - Current: Current Medications Acetaminophen (Tylenol) 650 mg PO Q6H PRN PRN Reason: Pain/Fever Acetaminophen (Tylenol) 650 mg PO Q6H PRN PRN Reason: Pain/Fever Albuterol/Ipratropium (Duoneb 3.0-0.5 Mg/3 Ml) 3 ml NEB QIDRT PRN PRN Reason: Shortness of Breath Last Admin: 06/30/17 17:16 Dose: 3 ml Apixaban (Eliquis) 2.5 mg PO BID [facility] Last Admin: 07/01/17 08:25 Dose: 2.5 mg Artificial Tears (Isopto Tears 0.5% Ophth Soln) 0 ml EYEBOTH BID PRN PRN Reason: Dry Eyes Last Admin: 06/30/17 18:56 Dose: 1 drop Artificial Tears (Isopto Tears 0.5% Ophth Soln) 0 ml EYEBOTH BID [facility] Last Admin: 07/01/17 08:24 Dose: 1 drop Calcium Carbonate/Glycine (Tums) 500 mg PO DAILY [facility] Last Admin: 07/01/17 08:28 Dose: 500 mg Dextrose/Water (Dextrose 50% In Water) 50 ml IVPUSH ASDIRECTED PRN PRN Reason: Hypoglycemia Last Admin: 06/29/17 17:16 Dose: 50 ml Diltiazem HCl (Cardizem) 60 mg PO Q8H [facility] Last Admin: 07/01/17 09:49 Dose: Not Given Docusate Sodium (Colace) 200 mg PO BID [facility] Last Admin: 07/01/17 08:25 Dose: 200 mg Donepezil HCl (Aricept) 10 mg PO DAILY [facility] Last Admin: 07/01/17 08:28 Dose: 10 mg Duloxetine HCl (Cymbalta) 60 mg PO DAILY [facility] Last Admin: 07/01/17 08:28 Dose: 60 mg Ferrous Sulfate (Ferrous Sulfate) 325 mg PO DAILY [facility] Last Admin: 07/01/17 08:25 Dose: 325 mg Furosemide (Lasix) 20 mg IVPUSH DAILY@1600 [facility] Last Admin: 06/30/17 15:31 Dose: 20 mg Furosemide (Lasix) 40 mg IVPUSH DAILY@0600 [facility] Last Admin: 07/01/17 07:00 Dose: 40 mg Gabapentin (Neurontin) 300 mg PO BID [facility] Last Admin: 07/01/17 08:29 Dose: 300 mg Hydralazine HCl (Apresoline) 10 mg IVPUSH Q6H PRN PRN Reason: Hypertension Dextrose/Sodium Chloride (Dextrose 5%-Normal Saline) 1,000 mls @ 75 mls/hr IV ASDIRECTED [facility] Last Admin: 06/30/17 08:06 Dose: 75 mls/hr Insulin Aspart (Novolog) 0 unit SUBCUT QIDACANDBED [facility] PRN Reason: Protocol Last Admin: 07/01/17 11:20 Dose: 2 units Insulin Detemir (Levemir) 11 unit SUBCUT BID [facility] Last Admin: 07/01/17 08:37 Dose: Not Given Levalbuterol HCl (Xopenex) 1.25 mg NEB QIDRT PRN PRN Reason: Shortness of Breath Magnesium Oxide (Magnesium Oxide) 400 mg PO DAILY [facility] Last Admin: 07/01/17 08:24 Dose: 400 mg Metformin HCl (Glucophage) 250 mg PO BIDMEALS [facility] Last Admin: 06/29/17 06:30 Dose: Not Given Metoprolol Tartrate (Lopressor) 5 mg IVPUSH Q4H PRN PRN Reason: Tachycardia Last Admin: 06/26/17 12:45 Dose: 5 mg Metoprolol Tartrate (Lopressor) 50 mg PO Q12HR [facility] Last Admin: 07/01/17 08:27 Dose: Not Given Pantoprazole Sodium (Protonix) 40 mg PO BIDAC [facility] Last Admin: 07/01/17 07:01 Dose: 40 mg Orajel 1 Applic 0 each BUCCAL BID [facility] Last Admin: 07/01/17 08:29 Dose: Not Given Polyethylene Glycol (Miralax) 17 gm PO DAILY [facility] Last Admin: 07/01/17 08:24 Dose: 17 gm Risperidone (Risperidal) 0.125 mg PO DAILY [facility] Last Admin: 07/01/17 08:28 Dose: 0.125 mg Saccharomyces Boulardii (Florastor) 250 mg PO DAILY [facility] Last Admin: 07/01/17 08:24 Dose: 250 mg Senna (Senna) 17.2 mg PO DAILY [facility] Last Admin: 07/01/17 08:28 Dose: 17.2 mg Sodium Chloride (Saline Flush) 10 ml FLUSH ASDIRECTED PRN PRN Reason: Keep Vein Open Last Admin: 06/23/17 18:59 Dose: 10 ml Tamsulosin HCl (Flomax) 0.4 mg PO DAILY [facility] Last Admin: 07/01/17 08:28 Dose: 0.4 mg Tramadol HCl (Ultram) 100 mg PO TID [facility] Last Admin: 07/01/17 08:26 Dose: 100 mg Discontinued Medications Acetaminophen (Tylenol) 650 mg PO NOW ONE Stop: 06/23/17 20:57 Last Admin: 06/23/17 21:09 Dose: 650 mg Acetaminophen (Tylenol) 650 mg PO Q4H PRN PRN Reason: Pain/Fever Last Admin: 06/24/17 06:26 Dose: 650 mg Apixaban (Eliquis) 2.5 mg PO BID [facility] Dextrose/Water (Dextrose 50% In Water) 25 ml IVPUSH ASDIRECTED ONE Stop: 06/23/17 21:50 Last Admin: 06/23/17 22:05 Dose: 25 ml Dextrose/Water (Dextrose 50% In Water) Confirm Administered Dose 50 ml .ROUTE .STK-MED ONE Stop: 06/29/17 13:43 Last Admin: 06/29/17 14:02 Dose: 50 ml Furosemide (Lasix) 20 mg IVPUSH NOW ONE Stop: 06/24/17 09:45 Last Admin: 06/24/17 10:04 Dose: 20 mg Furosemide (Lasix) 20 mg IVPUSH DAILY [facility] Last Admin: 06/26/17 09:21 Dose: 20 mg Furosemide (Lasix) 40 mg IV NOW ONE Stop: 06/25/17 08:12 Last Admin: 06/25/17 08:55 Dose: Not Given Furosemide (Lasix) 40 mg IVPUSH NOW ONE Stop: 06/25/17 14:20 Last Admin: 06/25/17 14:30 Dose: 40 mg Furosemide (Lasix) 40 mg IVPUSH DAILY [facility] Last Admin: 06/28/17 09:29 Dose: 40 mg Sodium Chloride (Normal Saline) 250 mls @ 999 mls/hr IV ONETIME ONE Stop: 06/23/17 19:18 Last Admin: 06/24/17 01:22 Dose: Not Given Sodium Chloride (Normal Saline) 500 mls @ 999 mls/hr IV ONETIME ONE Stop: 06/23/17 19:33 Last Admin: 06/23/17 19:13 Dose: 999 mls/hr Sodium Chloride (Normal Saline) 1,000 mls @ 100 mls/hr IV ONETIME ONE Stop: 06/24/17 06:54 Last Admin: 06/23/17 21:05 Dose: 100 mls/hr Ceftriaxone Sodium 2 gm/ (Sodium Chloride) 100 mls @ 100 mls/hr IV ONETIME ONE Stop: 06/23/17 23:13 Last Admin: 06/23/17 22:35 Dose: 100 mls/hr Sodium Chloride (Normal Saline) 500 mls @ 999 mls/hr IV ONETIME ONE Stop: 06/23/17 22:54 Last Admin: 06/24/17 01:23 Dose: Not Given Sodium Chloride (Normal Saline) 1,000 mls @ 999 mls/hr IV ONETIME ONE Stop: 06/23/17 23:24 Last Admin: 06/23/17 22:38 Dose: 999 mls/hr Levofloxacin/Dextrose 750 mg/ (Premix) 150 mls @ 100 mls/hr IV ONETIME ONE Stop: 06/24/17 02:39 Last Admin: 06/24/17 01:40 Dose: 100 mls/hr Sodium Chloride (Normal Saline) 1,000 mls @ 75 mls/hr IV ASDIRECTED [facility] Last Admin: 06/24/17 06:26 Dose: 75 mls/hr Piperacillin Sod/Tazobactam (Sod 4.5 gm/ Sodium Chloride) 100 mls @ 200 mls/hr IV ONETIME ONE Stop: 06/24/17 09:29 Last Admin: 06/24/17 09:34 Dose: 200 mls/hr Piperacillin Sod/Tazobactam (Sod 4.5 gm/ Sodium Chloride) 100 mls @ 25 mls/hr IV Q8H [facility] Last Admin: 07/01/17 08:22 Dose: 25 mls/hr Levofloxacin/Dextrose 750 mg/ (Premix) 150 mls @ 100 mls/hr IV Q24H [facility] Last Admin: 06/26/17 01:26 Dose: 100 mls/hr Sodium Chloride (Normal Saline) Confirm Administered Dose 100 mls @ as directed .ROUTE .STK-MED ONE Stop: 06/25/17 09:03 Last Admin: 06/25/17 09:27 Dose: 100 ml Magnesium Sulfate 2 gm/ Premix 50 mls @ 25 mls/hr IV ONETIME ONE Stop: 06/25/17 11:42 Last Admin: 06/25/17 10:52 Dose: 25 mls/hr Sodium Chloride (Normal Saline) Confirm Administered Dose 100 mls @ as directed .ROUTE .STK-MED ONE Stop: 06/25/17 11:44 Last Admin: 06/25/17 12:18 Dose: 100 ml Sodium Chloride (Normal Saline) 500 mls @ 999 mls/hr IV .BOLUS ONE Stop: 06/29/17 16:04 Last Admin: 06/29/17 15:41 Dose: 999 mls/hr Iopamidol (Isovue-300 (61%)) 150 ml IVPUSH ONETIME ONE Stop: 06/23/17 21:43 Last Admin: 06/23/17 21:58 Dose: 125 ml Levalbuterol HCl (Xopenex) 1.25 mg NEB QIDRT [facility] Last Admin: 06/28/17 10:44 Dose: 1.25 mg Levalbuterol HCl (Xopenex) 1.25 mg NEB QIDRT PRN PRN Reason: SOB/Wheezing Methylprednisolone Sodium Succinate (Solu-Medrol) 40 mg IVPUSH Q12H [facility] Last Admin: 06/27/17 00:33 Dose: 40 mg Methylprednisolone Sodium Succinate (Solu-Medrol) 40 mg IVPUSH Q24H [facility] Last Admin: 06/27/17 13:38 Dose: 40 mg Methylprednisolone Sodium Succinate (Solu-Medrol) 125 mg IVPUSH ONETIME ONE Stop: 06/29/17 17:44 Last Admin: 06/29/17 18:02 Dose: 125 mg Sodium Chloride (Saline Flush) 10 ml FLUSH ONETIME PRN PRN Reason: IV FLUSH Last Admin: 06/23/17 21:58 Dose: 10 ml - Exam Quality Assessment: Reports: Supplemental Oxygen, DVT Prophylaxis General: Reports: Alert, Oriented, Cooperative, No Acute Distress HEENT: Reports: Pupils Equal, EOMI, Mucous Membr. Moist/Industry Neck: Reports: Supple Lungs: Reports: Normal Respiratory Effort, Decreased Breath Sounds Cardiovascular: Reports: Irregular Rhythm GI/Abdominal Exam: Normal Bowel Sounds, Soft (Male) Exam: Deferred Rectal (Males) Exam: Deferred Extremities: Normal Capillary Refill Neurological: Reports: No New Focal Deficit Psy/Mental Status: Reports: Alert, Normal Affect, Normal Mood *Q Meaningful Use (DIS) - VTE *Q VTE Criteria *Q: - Stroke *Q Stroke Criteria *Q: - AMI *Q AMI Criteria *Q:
== END 2017-07-01 14:40 | DRG 195 ==
LOC: JD.ED 18:35 → JD.MS 23:25 → JD.ICU 06-24 15:06 → JD.MS 06-26 10:47 → JD.ICU 06-26 10:50 → JD.MS 06-27 14:42
PROVIDERS: ADMIT Internal Medicine Cardiovascular Disease; ATTEND Internal Medicine Cardiovascular Disease
PROC: 30233N1 Transfusion of Nonautologous Red Blood Cells into Peripheral Vein, Percutaneous Approach (ICD-10-PCS; principal; 2017-06-24)
DX: J18.9 Pneumonia, unspecified organism (principal); D64.9 Anemia, unspecified; R10.9 Unspecified abdominal pain; I48.91 Unspecified atrial fibrillation; R09.02 Hypoxemia; D50.9 Iron deficiency anemia, unspecified; I35.9 Nonrheumatic aortic valve disorder, unspecified; N40.0 Benign prostatic hyperplasia without lower urinary tract symptoms; I48.2 Chronic atrial fibrillation; I25.10 Atherosclerotic heart disease of native coronary artery without angina pectoris; I11.0 Hypertensive heart disease with heart failure; I50.9 Heart failure, unspecified; D70.9 Neutropenia, unspecified; Z87.891 Personal history of nicotine dependence; I25.2 Old myocardial infarction; E11.9 Type 2 diabetes mellitus without complications; E61.1 Iron deficiency; J44.9 Chronic obstructive pulmonary disease, unspecified; K21.9 Gastro-esophageal reflux disease without esophagitis; M19.90 Unspecified osteoarthritis, unspecified site; G89.29 Other chronic pain; M54.9 Dorsalgia, unspecified; Z86.73 Personal history of transient ischemic attack (TIA), and cerebral infarction without residual deficits; F32.9 Major depressive disorder, single episode, unspecified; H54.7 Unspecified visual loss; Z66 Do not resuscitate; Z79.01 Long term (current) use of anticoagulants; Z79.84 Long term (current) use of oral hypoglycemic drugs; Z79.4 Long term (current) use of insulin; Z99.81 Dependence on supplemental oxygen; Z79.899 Other long term (current) drug therapy
CPT/HCPCS: 36415; 71045; 71260; 74177; 80053; 81001; 82962 ×2; 83605; 83880; 85025; 86140; 86738; 86850; 86900; 86901; 86922; 87040 ×2; 87086; 87804 ×2; 93005; 96361; 96365; 96375; 99285; A9270; J0696; J7030; J7040 ×3; J7050 ×2; J7060; Q9967; 36430; 36600; 71046; 71046-26; 80048; 82272; 82803; 83735; 84484; 85027; 87070; 87205; 87486; 87493; 87581; 87633; 87641; 87798; 93010; 93306; 94640; 94668; 94760; 94761; 97110-GO; 97110-GP; 97161-GP; 97162-GP; 97165-GO; 97166-GO; 97530-GO; 99284; J1815-GY; J1940; J1956; J2543; J2920; J2930; J3475; J3490; J7042; J7612; P9016

== ENCOUNTER 2017-08-03 19:46 | Observation (INO) | payer MEDICARE, BC ==
--- NOTE | 2017-08-03 21:33 | EDM.PDOC ---
ED HPI GENERAL MEDICAL PROBLEM - General Chief Complaint: Cardiovascular Problem Stated Complaint: RESP Time Seen by Provider: 08/03/17 20:06 Source of Information: Reports: Family (Daughters) History Limitations: Reports: Other (Patient sleeping soundly) - History of Present Illness INITIAL COMMENTS - FREE TEXT/NARRATIVE: The patient is sent from [facility] with report of bilateral arm edema, a blood glucose drop from 150-60, then back up to 113 following orange juice, and low blood pressure of 86/54 the jail, 97/66 in the ED. According to the patient's daughters, they were told that the patient's oxygen saturations decreased around 17:00 this evening. They were told that his blood glucose was initially high, then dropped some time this afternoon. They stated that this has been happening frequently recently, including this past Saturday and Saturday. They state that the patient has been eating normally. They report that he has had rattly breath sounds for the past 2 days. He vomited about a week ago, but has not had any recent constipation or diarrhea. No recent fever. No recent cough. No recent urinary symptoms. They state that the patient has had similar symptoms several times in the past secondary to pneumonia, however, I note that an infiltrate was not found on his 2 prior chest radiographs from this facility. The patient's PCP is Dr. Turner. He is ordinarily wheelchair bound, and his CODE STATUS is DNR. - Related Data Allergies Allergy/AdvReac Type Severity Reaction Status Date / Time No Known Allergies Allergy Verified 08/03/17 20:00 Home Meds: Home Meds Albuterol Sulfate [Proair Respiclick] 2 puff INH TID 04/13/15 [History] DULoxetine [Cymbalta] 60 mg PO DAILY 04/13/15 [History] Docusate Sodium [Colace] 200 mg PO BID 04/13/15 [History] Ferrous Sulfate 324 mg PO DAILY 04/13/15 [History] Propylene Glycol/Peg 400 [Systane 0.3-0.4% Eye Drops] 1 drop EYEBOTH BID PRN [History] Tamsulosin [Flomax] 0.4 mg PO DAILY 09/08/15 [History] Acetaminophen 650 mg PO Q6H PRN 11/05/16 [History] Gabapentin [Neurontin] 300 mg PO BID 12/08/16 [History] Polyethylene Glycol 3350 [MiraLAX] 17 gm PO DAILY 12/08/16 [History] traMADol [Ultram] 100 mg PO TID 12/08/16 [History] Calcium Carbonate [Tums] 1 tab PO DAILY 12/09/16 [History] Omeprazole 20 mg PO BIDAC #60 cap.cr 12/12/16 [Rx] Donepezil HCl [Aricept] 10 mg PO DAILY 04/23/17 [History] Furosemide [Lasix] 40 mg PO DAILY 04/23/17 [History] Menthol [Biofreeze] 1 applic TOP ASDIRECTED PRN 04/23/17 [History] Menthol [Biofreeze] 1 applic TOP TID 04/23/17 [History] Orajel 1 applic BUCCAL BID PRN 04/23/17 [History] Sennosides [Senna] 2 tab PO DAILY 04/23/17 [History] Vitamin E 400 unit PO DAILY 04/23/17 [History] Diltiazem IR [Cardizem] 60 mg PO Q8H #60 tablet 04/30/17 [Rx] Metoprolol Tartrate [Lopressor] 50 mg PO Q12HR #60 tablet 04/30/17 [Rx] metFORMIN [Glucophage] 250 mg PO BIDMEALS #60 tablet 04/30/17 [Rx] Albuterol Sulfate 1 dose INH Q8H PRN 06/23/17 [History] risperiDONE [RisperiDAL] 0.25 mg PO DAILY 06/23/17 [History] Apixaban [Eliquis] 2.5 mg PO BID 08/03/17 [History] Bisacodyl [Dulcolax] 10 mg PO DAILY 08/03/17 [History] Insulin Lispro [Humalog Kwikpen U-100] 1 dose SQ TIDMEALS 08/03/17 [History] Insulin Lispro [Humalog Kwikpen U-100] 10 unit SQ BID 08/03/17 [History] Insulin Lispro [Humalog Kwikpen U-100] 12 unit SQ ACLUNCH 08/03/17 [History] L. Acidophilus/Pectin, [place] [Acidophilus Probiotic] 1 cap PO DAILY 08/03/17 [ History] Magnesium Oxide 400 mg PO DAILY 08/03/17 [History] Polyvinyl Alcohol [LiquiTears 1.4% Ophth Soln] 2 drop EYEBOTH BID 08/03/17 [ History] Sacubitril/Valsartan [Entresto 24 mg-26 mg Tablet] 1 tab PO DAILY 08/03/17 [ History] Past Medical History HEENT History: Reports: Impaired Vision Cardiovascular History: Reports: Afib (chronic), CAD, Hypertension, [place], Other ( See Below) (Aortic stenosis) Respiratory History: Reports: COPD, Sleep Apnea (untreated) Gastrointestinal History: Reports: GERD, Hemorrhoids Genitourinary History: Reports: BPH, Renal Calculus Musculoskeletal History: Reports: Back Pain, Chronic, Osteoarthritis Neurological History: Reports: TIA Psychiatric History: Reports: Depression Endocrine/Metabolic History: Reports: Diabetes, Type II, Obesity/BMI 30+ Hematologic History: Reports: Anemia, Iron Deficiency - Infectious Disease History Infectious Disease History: Reports: Chicken Pox - Past Surgical History HEENT Surgical History: Reports: Cataract Surgery GI Surgical History: Reports: Appendectomy, Cholecystectomy, Colonoscopy Musculoskeletal Surgical History: Reports: ORIF (right femur) Social & Family History - Family History Family Medical History: Noncontributory Cardiac: Reports: [place] Other Cardiac Family History: twin brother Hematologic: Reports: Anemia Oncologic: Reports: Hodgkin's Lymphoma, Leukemia, Lung - Tobacco Use Smoking Status *Q: Former Smoker Years of Tobacco use: 50 Packs/Tins Daily: 1 Month/Year Tobacco Last Used: Quit - Caffeine Use Caffeine Use: Reports: Coffee Other Caffeine Use: diet soda - Alcohol Use Alcohol Use History: No Days Per Week of Alcohol Use: 0 - Recreational Drug Use Recreational Drug Use: No - Living Situation & Occupation Living situation: Reports: , Extended Care Facility ([facility]) Occupation: Retired ED ROS GENERAL - Review of Systems Review Of Systems: ROS reveals no pertinent complaints other than HPI. ED EXAM, GENERAL - Physical Exam Exam: See Below Exam Limited By: No Limitations General Appearance: WD/WN, No Apparent Distress, Other (Sleeping comfortably. Occasionally snores.) Ears: Normal External Exam Nose: Normal Inspection, No Blood Throat/Mouth: Normal Inspection, Normal Lips, No Airway Compromise Head: Atraumatic, Normocephalic Neck: Normal Inspection, Full Range of Motion Respiratory/Chest: No Respiratory Distress, Lungs Clear, Normal Breath Sounds, No Accessory Muscle Use Cardiovascular: Normal Peripheral Pulses, No Gallop, No JVD, No Murmur, No Rub, Irregularly Irregular (regular rate) Peripheral Pulses: 3+: Radial (L), Radial (R) GI/Abdominal: Normal Bowel Sounds, Soft, Non-Tender, No Organomegaly, No Distention, No Abnormal Bruit, No Mass, Other (Obese) (Male) Exam: Deferred Rectal (Males) Exam: Deferred Extremities: Normal Inspection, Normal Range of Motion, Non-Tender, Normal Capillary Refill, Other (2+ generalized edema, BUE and BLE's) Neurological: Other (Unable to assess, as the patient is sleeping soundly) Psychiatric: Other (Unable to assess) Skin Exam: Warm, Dry, Intact, Normal Color, No Rash EKG INTERPRETATION EKG Date: 08/03/17 Time: 20:56 Rhythm: A-Fib Rate (Beats/Min): 66 [place]: Normal P-Wave: Absent QRS: RBBB ST-T: Normal QT: Normal Comparison: No Change (06/24/2017) Course - Vital Signs Last Recorded V/S: Last Vital Signs Temp 35.6 C 08/03/17 19:49 Pulse 76 08/03/17 19:49 Resp 17 08/03/17 19:49 BP 97/66 08/03/17 19:49 Pulse Ox 96 08/03/17 19:49 - Orders/Labs/Meds Orders: Active Orders 24 hr Category Date Time Status EKG Documentation Completion [RC] STAT Care 08/03/17 20:38 Active Chest 1V Frontal [CR] Stat Exams 08/03/17 20:38 Taken CULTURE BLOOD [BC] Stat Lab 08/03/17 21:18 Received CULTURE BLOOD [BC] Stat Lab 08/03/17 21:30 Received INFLUENZA A+B AG SCREEN [RM] Stat Lab 08/03/17 20:30 Ordered Blood Culture x2 Reflex Set [OM.PC] Stat Oth 08/03/17 20:38 Ordered Labs: Laboratory Tests 08/03/17 08/03/17 08/03/17 Range/Units 19:55 19:55 19:55 WBC 5.69 (4.23-9.07) K/mm3 RBC 3.20 L (4.63-6.08) M/mm3 Hgb 10.5 L (13.7-17.5) gm/L Hct 32.7 L (40.1-51.0) % MCV 102.2 H (79.0-92.2) fl MCH 32.8 H (25.7-32.2) pg MCHC 32.1 L (32.2-35.5) g/dl RDW Std Deviation 72.8 H (35.1-43.9) fL Plt Count 198 (163-337) K/mm3 MPV 10.9 (9.4-12.3) fl Neutrophils % (Manual) 53 (40-60) % Band Neutrophils % 0 (0-10) % Lymphocytes % (Manual) 36 (20-40) % Atypical Lymphs % 0 % Monocytes % (Manual) 8 (2-10) % Eosinophils % (Manual) 2 (0.8-7.0) % Basophils % (Manual) 1 (0.2-1.2) Platelet Estimate Adequate Plt Morphology Comment Normal Poikilocytosis 3+ marked RBC Morph Comment Not Reportable PT 12.3 H (9.5-12.1) SECONDS INR 1.13 APTT 29 (24-31) SECONDS D-Dimer, Quantitative 1.04 H (0.19-0.50) mg/L Puncture Site ABG pH (7.35-7.45) ABG pCO2 (35.0-45.0) mmHg ABG pO2 (80.0-100.0) mmHg ABG HCO3 (22.0-26.0) meq/L ABG O2 Saturation (96.0-97.0) % ABG Base Excess (-2-2.0) A-a Gradient mmHg O2 Delivery Device Oxygen Flow Rate FiO2 (21.00-100.00) % Sodium 142 (136-145) mEq/L Potassium 4.6 (3.5-5.1) mEq/L Chloride 104 (98-107) mEq/L Carbon Dioxide 33 H (21-32) mEq/L Anion Gap 9.6 (5-15) BUN 13 (7-18) mg/dL Creatinine 1.0 (0.7-1.3) mg/dL Est Cr Clr Drug Dosing TNP Estimated GFR (MDRD) > 60 (>60) mL/min BUN/Creatinine Ratio 13.0 L (14-18) Glucose 128 H (83-115) mg/dL Lactic Acid (0.4-2.0) mmol/L Calcium 9.4 (8.5-10.1) mg/dL Magnesium 1.8 (1.8-2.4) mg/dl Total Bilirubin 0.8 (0.2-1.0) mg/dL AST 12 L (15-37) U/L ALT 12 L (16-63) U/L Alkaline Phosphatase 86 (46-116) U/L Troponin I < 0.017 (0.00-0.056) ng/mL NT-Pro-B Natriuret Pep (0-450) pg/mL Total Protein 6.2 L (6.4-8.2) g/dl Albumin 3.4 (3.4-5.0) g/dl Globulin 2.8 gm/dL Albumin/Globulin Ratio 1.2 (1-2) Urine Color (Yellow) Urine Appearance (Clear) Urine pH (5.0-8.0) Ur Specific [place] (1.005-1.030) Urine Protein (Negative) Urine Glucose (UA) (Negative) Urine Ketones (Negative) Urine Occult Blood (Negative) Urine Nitrite (Negative) Urine Bilirubin (Negative) Urine Urobilinogen (0.2-1.0) Ur Leukocyte Esterase (Negative) Urine RBC (0-5) /hpf Urine WBC (0-5) /hpf Ur Epithelial Cells (0-5) /hpf Urine Bacteria (FEW) /hpf Hyaline Casts (0-5) /lpf Urine Mucus (FEW) /hpf 08/03/17 08/03/17 08/03/17 Range/Units 19:55 19:55 21:00 WBC (4.23-9.07) K/mm3 RBC (4.63-6.08) M/mm3 Hgb (13.7-17.5) gm/L Hct (40.1-51.0) % MCV (79.0-92.2) fl MCH (25.7-32.2) pg MCHC (32.2-35.5) g/dl RDW Std Deviation (35.1-43.9) fL Plt Count (163-337) K/mm3 MPV (9.4-12.3) fl Neutrophils % (Manual) (40-60) % Band Neutrophils % (0-10) % Lymphocytes % (Manual) (20-40) % Atypical Lymphs % % Monocytes % (Manual) (2-10) % Eosinophils % (Manual) (0.8-7.0) % Basophils % (Manual) (0.2-1.2) Platelet Estimate Plt Morphology Comment Poikilocytosis RBC Morph Comment PT (9.5-12.1) SECONDS INR APTT (24-31) SECONDS D-Dimer, Quantitative (0.19-0.50) mg/L Puncture Site ABG pH (7.35-7.45) ABG pCO2 (35.0-45.0) mmHg ABG pO2 (80.0-100.0) mmHg ABG HCO3 (22.0-26.0) meq/L ABG O2 Saturation (96.0-97.0) % ABG Base Excess (-2-2.0) A-a Gradient mmHg O2 Delivery Device Oxygen Flow Rate FiO2 (21.00-100.00) % Sodium (136-145) mEq/L Potassium (3.5-5.1) mEq/L Chloride (98-107) mEq/L Carbon Dioxide (21-32) mEq/L Anion Gap (5-15) BUN (7-18) mg/dL Creatinine (0.7-1.3) mg/dL Est Cr Clr Drug Dosing Estimated GFR (MDRD) (>60) mL/min BUN/Creatinine Ratio (14-18) Glucose (83-115) mg/dL Lactic Acid 1.5 (0.4-2.0) mmol/L Calcium (8.5-10.1) mg/dL Magnesium (1.8-2.4) mg/dl Total Bilirubin (0.2-1.0) mg/dL AST (15-37) U/L ALT (16-63) U/L Alkaline Phosphatase (46-116) U/L Troponin I (0.00-0.056) ng/mL NT-Pro-B Natriuret Pep 1189 H (0-450) pg/mL Total Protein (6.4-8.2) g/dl Albumin (3.4-5.0) g/dl Globulin gm/dL Albumin/Globulin Ratio (1-2) Urine Color Yellow (Yellow) Urine Appearance Clear (Clear) Urine pH 5.5 (5.0-8.0) Ur Specific [place] 1.025 (1.005-1.030) Urine Protein Negative (Negative) Urine Glucose (UA) Negative (Negative) Urine Ketones Negative (Negative) Urine Occult Blood Trace-intact H (Negative) Urine Nitrite Negative (Negative) Urine Bilirubin Negative (Negative) Urine Urobilinogen 1.0 (0.2-1.0) Ur Leukocyte Esterase Negative (Negative) Urine RBC 0-5 (0-5) /hpf Urine WBC 0-5 (0-5) /hpf Ur Epithelial Cells 0-5 (0-5) /hpf Urine Bacteria Rare (FEW) /hpf Hyaline Casts 0-5 (0-5) /lpf Urine Mucus Few (FEW) /hpf 04/14/18 Range/Units 21:05 WBC (4.23-9.07) K/mm3 RBC (4.63-6.08) M/mm3 Hgb (13.7-17.5) gm/L Hct (40.1-51.0) % MCV (79.0-92.2) fl MCH (25.7-32.2) pg MCHC (32.2-35.5) g/dl RDW Std Deviation (35.1-43.9) fL Plt Count (163-337) K/mm3 MPV (9.4-12.3) fl Neutrophils % (Manual) (40-60) % Band Neutrophils % (0-10) % Lymphocytes % (Manual) (20-40) % Atypical Lymphs % % Monocytes % (Manual) (2-10) % Eosinophils % (Manual) (0.8-7.0) % Basophils % (Manual) (0.2-1.2) Platelet Estimate Plt Morphology Comment Poikilocytosis RBC Morph Comment PT (9.5-12.1) SECONDS INR APTT (24-31) SECONDS D-Dimer, Quantitative (0.19-0.50) mg/L Puncture Site Rt brachial ABG pH 7.38 (7.35-7.45) ABG pCO2 49.9 H (35.0-45.0) mmHg ABG pO2 85.0 (80.0-100.0) mmHg ABG HCO3 28.6 H (22.0-26.0) meq/L ABG O2 Saturation 96.0 (96.0-97.0) % ABG Base Excess 3.3 H (-2-2.0) A-a Gradient 58 mmHg O2 Delivery Device Cannula Oxygen Flow Rate 3.0 FiO2 32.00 (21.00-100.00) % Sodium (136-145) mEq/L Potassium (3.5-5.1) mEq/L Chloride (98-107) mEq/L Carbon Dioxide (21-32) mEq/L Anion Gap (5-15) BUN (7-18) mg/dL Creatinine (0.7-1.3) mg/dL Est Cr Clr Drug Dosing Estimated GFR (MDRD) (>60) mL/min BUN/Creatinine Ratio (14-18) Glucose (83-115) mg/dL Lactic Acid (0.4-2.0) mmol/L Calcium (8.5-10.1) mg/dL Magnesium (1.8-2.4) mg/dl Total Bilirubin (0.2-1.0) mg/dL AST (15-37) U/L ALT (16-63) U/L Alkaline Phosphatase (46-116) U/L Troponin I (0.00-0.056) ng/mL NT-Pro-B Natriuret Pep (0-450) pg/mL Total Protein (6.4-8.2) g/dl Albumin (3.4-5.0) g/dl Globulin gm/dL Albumin/Globulin Ratio (1-2) Urine Color (Yellow) Urine Appearance (Clear) Urine pH (5.0-8.0) Ur Specific [place] (1.005-1.030) Urine Protein (Negative) Urine Glucose (UA) (Negative) Urine Ketones (Negative) Urine Occult Blood (Negative) Urine Nitrite (Negative) Urine Bilirubin (Negative) Urine Urobilinogen (0.2-1.0) Ur Leukocyte Esterase (Negative) Urine RBC (0-5) /hpf Urine WBC (0-5) /hpf Ur Epithelial Cells (0-5) /hpf Urine Bacteria (FEW) /hpf Hyaline Casts (0-5) /lpf Urine Mucus (FEW) /hpf Meds: Medications Discontinued Medications Generic Name Dose Route Start Last Admin Trade Name Freq PRN Reason Stop Dose Admin Furosemide 40 mg 08/03/17 21:40 08/03/17 21:46 Lasix IVPUSH 08/03/17 21:41 40 mg NOW ONE Administration - Re-Assessments/Exams Free Text/Narrative Re-Assessment/Exam: 08/03/17 21:37 Portable chest radiograph reviewed. There is likely cardiomegaly and mild pulmonary vascular congestion, consistent with decompensated CHF, although no obvious pleural effusions are seen. No focal infiltrate. No pneumothorax. Formal read per the Radiologist pending. 08/03/17 21:40 The patient's BNP is modestly elevated at 1189. Review of prior BNPs finds that with the exception of one other BNP slightly lower than 1189, all of the other BNP's previously obtained on this patient have been higher, some significantly so. Nevertheless, based on the patient's chest radiograph findings, I suspect the patient is fluid overloaded, therefore will order some diuresis. 08/04/17 02:06 The patient's family has gone home. I would like to place the patient into observation for mild CHF. Case discussed with Dr. Jalloh at 02:02. He agrees to place the patient into observation on telemetry, and asked that I write some bridge orders. Departure - Departure Time of Disposition: 02:07 Disposition: Refer to Observation Condition: Fair (CHF) Clinical Impression: CHF (congestive heart failure) - My Orders Last 24 Hours: My Active Orders 08/03/17 20:30 INFLUENZA A+B AG SCREEN [RM] Stat 08/03/17 20:38 EKG Documentation Completion [RC] STAT Chest 1V Frontal [CR] Stat Blood Culture x2 Reflex Set [OM.PC] Stat 08/03/17 21:18 CULTURE BLOOD [BC] Stat 08/03/17 21:30 CULTURE BLOOD [BC] Stat - Assessment/Plan Last 24 Hours: My Active Orders 08/03/17 20:30 INFLUENZA A+B AG SCREEN [RM] Stat 08/03/17 20:38 EKG Documentation Completion [RC] STAT Chest 1V Frontal [CR] Stat Blood Culture x2 Reflex Set [OM.PC] Stat 08/03/17 21:18 CULTURE BLOOD [BC] Stat 08/03/17 21:30 CULTURE BLOOD [BC] Stat
[2017-08-03] MEDS ORDERED: Furosemide 40 MG/4 ML VIAL IVPUSH ONE (21:40)
--- NOTE | 2017-08-04 05:11 | PCM.HP ---
H&P History of Present Illness - General Date of Service: 08/04/17 Admit Problem/Dx: Admission Diagnosis/Problem Admission Diagnosis/Problem Congestive heart failure Source of Information: Patient, Family, Old Records, Provider, RN, RN Notes Reviewed History Limitations: Reports: Respiratory Distress - History of Present Illness Initial Comments - Free Text/Narative: This is an 86 yo eldelry white male with past medical hx/o Impaired Vision Atrial Fibrillation, CAD, HLD, HTN, Aortic Stenosis, COPD, AGNES, GERD, Hemorrhoids, BPH, Renal Stones, Back Pain, OS/DJD, TIA, RODRIGO, Depression, and Obesity with BMI of 30+ who was sent overnight from [facility] with report of bilateral arm edema, hyperglycemia as high as 160s and hypotension with blood pressure readings of 86/54 mmHgb in the alf. Patient is a poor historian. HPI is obtained from secondary sources. Per ED notes, his daughter reports patient having low O2 sat and that his sugar has not been fully controlled with significant fluctuations. He has been eating normally. Patient also has been having adventitious lung sounds in the past couple of days. No reports of systemic signs of infections. His most recent hospitalization was June 2017. His initial work up in ED shows a CBC remarkable for RBC of 3.20, Hgb ot 10.5, Hct of 32.7, MCV of 102.2, MCH of 32.8, MCHC of 32.1, and RDW of 72.8. His coagulation studies show a PT of 12.3, INR of 1.13, aPTT of 29 and D-Dimer of 1.04. His chemistry is significant for CO2 of 33, BS of 128, AST of 12, ALT of 12, ProBNP of 1189, and Total Protein of 6.2. His UA is negative for UTI. His CXR report reads mild pulmonary congestion. 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 He is DNR. Neck Pain Score (Numeric/FACES): 7 - Related Data Allergies/Adverse Reactions: Allergies Allergy/AdvReac Type Severity Reaction Status Date / Time No Known Allergies Allergy Verified 08/04/17 03:44 Home Medications: Home Meds Albuterol Sulfate [Proair Respiclick] 2 puff INH TID 04/13/15 [History] DULoxetine [Cymbalta] 60 mg PO DAILY 04/13/15 [History] Docusate Sodium [Colace] 200 mg PO BID 04/13/15 [History] Ferrous Sulfate 324 mg PO DAILY 04/13/15 [History] Propylene Glycol/Peg 400 [Systane 0.3-0.4% Eye Drops] 1 drop EYEBOTH BID PRN [History] Tamsulosin [Flomax] 0.4 mg PO DAILY 09/08/15 [History] Acetaminophen 650 mg PO Q6H PRN 11/05/16 [History] Gabapentin [Neurontin] 300 mg PO BID 12/08/16 [History] Polyethylene Glycol 3350 [MiraLAX] 17 gm PO DAILY 12/08/16 [History] traMADol [Ultram] 100 mg PO TID 12/08/16 [History] Calcium Carbonate [Tums] 1 tab PO DAILY 12/09/16 [History] Omeprazole 20 mg PO BIDAC #60 cap.cr 12/12/16 [Rx] Donepezil HCl [Aricept] 10 mg PO DAILY 04/23/17 [History] Furosemide [Lasix] 40 mg PO DAILY 04/23/17 [History] Menthol [Biofreeze] 1 applic TOP ASDIRECTED PRN 04/23/17 [History] Menthol [Biofreeze] 1 applic TOP TID 04/23/17 [History] Orajel 1 applic BUCCAL TID PRN 04/23/17 [History] Sennosides [Senna] 2 tab PO DAILY 04/23/17 [History] Vitamin E 400 unit PO DAILY 04/23/17 [History] Diltiazem IR [Cardizem] 60 mg PO Q8H #60 tablet 04/30/17 [Rx] Metoprolol Tartrate [Lopressor] 50 mg PO Q12HR #60 tablet 04/30/17 [Rx] metFORMIN [Glucophage] 250 mg PO BIDMEALS #60 tablet 04/30/17 [Rx] Albuterol Sulfate 1 dose INH Q8H PRN 06/23/17 [History] risperiDONE [RisperiDAL] 0.25 mg PO DAILY 06/23/17 [History] Apixaban [Eliquis] 2.5 mg PO BID 08/03/17 [History] Bisacodyl [Dulcolax] 10 mg PO DAILY 08/03/17 [History] Insulin Lispro [Humalog Kwikpen U-100] 1 dose SQ TIDMEALS 08/03/17 [History] Insulin Lispro [Humalog Kwikpen U-100] 10 unit SQ BID 08/03/17 [History] Insulin Lispro [Humalog Kwikpen U-100] 12 unit SQ ACLUNCH 08/03/17 [History] L. Acidophilus/Pectin, [place] [Acidophilus Probiotic] 175 mg PO DAILY 08/03/17 [ History] Magnesium Oxide 400 mg PO DAILY 08/03/17 [History] Polyvinyl Alcohol [LiquiTears 1.4% Ophth Soln] 2 drop EYEBOTH BID 08/03/17 [ History] Sacubitril/Valsartan [Entresto 24 mg-26 mg Tablet] 1 tab PO DAILY 08/03/17 [ History] Past Medical History HEENT History: Reports: Impaired Vision Cardiovascular History: Reports: Afib (chronic), CAD, Hypertension, [place], Other ( See Below) (Aortic stenosis) Other Cardiovascular History: Nonrheumatic aortic valve disorder, atherosclerotic heart disease Respiratory History: Reports: COPD, Sleep Apnea (untreated) Gastrointestinal History: Reports: GERD, Hemorrhoids Genitourinary History: Reports: BPH, Renal Calculus Musculoskeletal History: Reports: Back Pain, Chronic, Osteoarthritis Neurological History: Reports: TIA Psychiatric History: Reports: Depression Endocrine/Metabolic History: Reports: Diabetes, Type II, Obesity/BMI 30+ Hematologic History: Reports: Anemia, Iron Deficiency Oncologic (Cancer) History: Reports: None - Infectious Disease History Infectious Disease History: Reports: Chicken Pox - Past Surgical History HEENT Surgical History: Reports: Cataract Surgery GI Surgical History: Reports: Appendectomy, Cholecystectomy, Colonoscopy Musculoskeletal Surgical History: Reports: ORIF (right femur) Social & Family History - Family History Family Medical History: Noncontributory Cardiac: Reports: [place] Other Cardiac Family History: twin brother Hematologic: Reports: Anemia Oncologic: Reports: Hodgkin's Lymphoma, Leukemia, Lung - Tobacco Use Smoking Status *Q: Former Smoker Years of Tobacco use: 50 Packs/Tins Daily: 1 Used Tobacco, but Quit: Yes Month/Year Tobacco Last Used: Quit Second Hand Smoke Exposure: Yes - Caffeine Use Caffeine Use: Reports: Coffee Other Caffeine Use: diet soda - Alcohol Use Days Per Week of Alcohol Use: 0 - Recreational Drug Use Recreational Drug Use: No - Living Situation & Occupation Living situation: Reports: , Extended Care Facility ([facility]) Occupation: Retired H&P Review of Systems - Review of Systems: Review Of Systems: Unable To Obtain Free Text/Narrative: He respond " I don't know" for every question I asked Exam - Exam Exam: See Below - Vital Signs Vital Signs: Last Vital Signs Temp 36.8 C 08/04/17 03:20 Pulse 95 08/04/17 03:20 Resp 18 08/04/17 03:20 BP 113/68 08/04/17 03:20 Pulse Ox 91 L 08/04/17 03:20 Weight: 92.578 kg - Exam General: Alert, Cooperative, Other (Obese). No: Mild Distress HEENT: Conjunctiva Clear, EACs Clear, EOMI, Hearing Intact, Mucosa Moist & [place] , Nares Patent, Normal Nasal Septum, Pupils Reactive, Abnormal Pupils Neck: Supple, Trachea Midline, Full Range of Motion Lungs: Normal Respiratory Effort, Decreased Breath Sounds Cardiovascular: Systolic Murmur, Other (Irregular Rate) GI/Abdominal Exam: Normal Bowel Sounds, Soft, Non-Tender, No Organomegaly, No Distention, No Abnormal Bruit, No Mass (Male) Exam: Deferred Rectal (Males) Exam: Deferred Back Exam: Normal Inspection, Decreased Range of Motion Extremities: Normal Inspection, Normal Range of Motion, Non-Tender, Normal Capillary Refill, Other ([place] lower extremity edema) Peripheral Pulses: 2+: Posterior Tibial (L), Posterior Tibial (R), Dorsalis Pedis (L), Dorsalis Pedis (R) Skin: Warm, Dry, Intact, Ecchymosis Neuro Extensive - Mental Status: Alert Neuro Extensive - Motor, Sensory, Reflexes: CN II-XII Intact, Abnormal Gait Psychiatric: Alert, Normal Affect, Normal Mood - Patient Data Lab Results Last 24 hrs: Laboratory Results - last 24 hr 08/03/17 08/03/17 08/03/17 Range/Units 19:55 19:55 19:55 WBC 5.69 (4.23-9.07) K/mm3 RBC 3.20 L (4.63-6.08) M/mm3 Hgb 10.5 L (13.7-17.5) gm/L Hct 32.7 L (40.1-51.0) % MCV 102.2 H (79.0-92.2) fl MCH 32.8 H (25.7-32.2) pg MCHC 32.1 L (32.2-35.5) g/dl RDW Std Deviation 72.8 H (35.1-43.9) fL Plt Count 198 (163-337) K/mm3 MPV 10.9 (9.4-12.3) fl Neutrophils % (Manual) 53 (40-60) % Band Neutrophils % 0 (0-10) % Lymphocytes % (Manual) 36 (20-40) % Atypical Lymphs % 0 % Monocytes % (Manual) 8 (2-10) % Eosinophils % (Manual) 2 (0.8-7.0) % Basophils % (Manual) 1 (0.2-1.2) Platelet Estimate Adequate Plt Morphology Comment Normal Poikilocytosis 3+ marked RBC Morph Comment Not Reportable PT 12.3 H (9.5-12.1) SECONDS INR 1.13 APTT 29 (24-31) SECONDS D-Dimer, Quantitative 1.04 H (0.19-0.50) mg/L Puncture Site ABG pH (7.35-7.45) ABG pCO2 (35.0-45.0) mmHg ABG pO2 (80.0-100.0) mmHg ABG HCO3 (22.0-26.0) meq/L ABG O2 Saturation (96.0-97.0) % ABG Base Excess (-2-2.0) A-a Gradient mmHg O2 Delivery Device Oxygen Flow Rate FiO2 (21.00-100.00) % Sodium 142 (136-145) mEq/L Potassium 4.6 (3.5-5.1) mEq/L Chloride 104 (98-107) mEq/L Carbon Dioxide 33 H (21-32) mEq/L Anion Gap 9.6 (5-15) BUN 13 (7-18) mg/dL Creatinine 1.0 (0.7-1.3) mg/dL Est Cr Clr Drug Dosing TNP Estimated GFR (MDRD) > 60 (>60) mL/min BUN/Creatinine Ratio 13.0 L (14-18) Glucose 128 H (83-115) mg/dL POC Glucose (83-110) mg/dL Lactic Acid (0.4-2.0) mmol/L Calcium 9.4 (8.5-10.1) mg/dL Magnesium 1.8 (1.8-2.4) mg/dl Total Bilirubin 0.8 (0.2-1.0) mg/dL AST 12 L (15-37) U/L ALT 12 L (16-63) U/L Alkaline Phosphatase 86 (46-116) U/L Troponin I < 0.017 (0.00-0.056) ng/mL NT-Pro-B Natriuret Pep (0-450) pg/mL Total Protein 6.2 L (6.4-8.2) g/dl Albumin 3.4 (3.4-5.0) g/dl Globulin 2.8 gm/dL Albumin/Globulin Ratio 1.2 (1-2) Urine Color (Yellow) Urine Appearance (Clear) Urine pH (5.0-8.0) Ur Specific [place] (1.005-1.030) Urine Protein (Negative) Urine Glucose (UA) (Negative) Urine Ketones (Negative) Urine Occult Blood (Negative) Urine Nitrite (Negative) Urine Bilirubin (Negative) Urine Urobilinogen (0.2-1.0) Ur Leukocyte Esterase (Negative) Urine RBC (0-5) /hpf Urine WBC (0-5) /hpf Ur Epithelial Cells (0-5) /hpf Urine Bacteria (FEW) /hpf Hyaline Casts (0-5) /lpf Urine Mucus (FEW) /hpf 08/03/17 08/03/17 08/03/17 Range/Units 19:55 19:55 21:00 WBC (4.23-9.07) K/mm3 RBC (4.63-6.08) M/mm3 Hgb (13.7-17.5) gm/L Hct (40.1-51.0) % MCV (79.0-92.2) fl MCH (25.7-32.2) pg MCHC (32.2-35.5) g/dl RDW Std Deviation (35.1-43.9) fL Plt Count (163-337) K/mm3 MPV (9.4-12.3) fl Neutrophils % (Manual) (40-60) % Band Neutrophils % (0-10) % Lymphocytes % (Manual) (20-40) % Atypical Lymphs % % Monocytes % (Manual) (2-10) % Eosinophils % (Manual) (0.8-7.0) % Basophils % (Manual) (0.2-1.2) Platelet Estimate Plt Morphology Comment Poikilocytosis RBC Morph Comment PT (9.5-12.1) SECONDS INR APTT (24-31) SECONDS D-Dimer, Quantitative (0.19-0.50) mg/L Puncture Site ABG pH (7.35-7.45) ABG pCO2 (35.0-45.0) mmHg ABG pO2 (80.0-100.0) mmHg ABG HCO3 (22.0-26.0) meq/L ABG O2 Saturation (96.0-97.0) % ABG Base Excess (-2-2.0) A-a Gradient mmHg O2 Delivery Device Oxygen Flow Rate FiO2 (21.00-100.00) % Sodium (136-145) mEq/L Potassium (3.5-5.1) mEq/L Chloride (98-107) mEq/L Carbon Dioxide (21-32) mEq/L Anion Gap (5-15) BUN (7-18) mg/dL Creatinine (0.7-1.3) mg/dL Est Cr Clr Drug Dosing Estimated GFR (MDRD) (>60) mL/min BUN/Creatinine Ratio (14-18) Glucose (83-115) mg/dL POC Glucose (83-110) mg/dL Lactic Acid 1.5 (0.4-2.0) mmol/L Calcium (8.5-10.1) mg/dL Magnesium (1.8-2.4) mg/dl Total Bilirubin (0.2-1.0) mg/dL AST (15-37) U/L ALT (16-63) U/L Alkaline Phosphatase (46-116) U/L Troponin I (0.00-0.056) ng/mL NT-Pro-B Natriuret Pep 1189 H (0-450) pg/mL Total Protein (6.4-8.2) g/dl Albumin (3.4-5.0) g/dl Globulin gm/dL Albumin/Globulin Ratio (1-2) Urine Color Yellow (Yellow) Urine Appearance Clear (Clear) Urine pH 5.5 (5.0-8.0) Ur Specific [place] 1.025 (1.005-1.030) Urine Protein Negative (Negative) Urine Glucose (UA) Negative (Negative) Urine Ketones Negative (Negative) Urine Occult Blood Trace-intact H (Negative) Urine Nitrite Negative (Negative) Urine Bilirubin Negative (Negative) Urine Urobilinogen 1.0 (0.2-1.0) Ur Leukocyte Esterase Negative (Negative) Urine RBC 0-5 (0-5) /hpf Urine WBC 0-5 (0-5) /hpf Ur Epithelial Cells 0-5 (0-5) /hpf Urine Bacteria Rare (FEW) /hpf Hyaline Casts 0-5 (0-5) /lpf Urine Mucus Few (FEW) /hpf 08/03/17 08/04/17 Range/Units 21:05 00:31 WBC (4.23-9.07) K/mm3 RBC (4.63-6.08) M/mm3 Hgb (13.7-17.5) gm/L Hct (40.1-51.0) % MCV (79.0-92.2) fl MCH (25.7-32.2) pg MCHC (32.2-35.5) g/dl RDW Std Deviation (35.1-43.9) fL Plt Count (163-337) K/mm3 MPV (9.4-12.3) fl Neutrophils % (Manual) (40-60) % Band Neutrophils % (0-10) % Lymphocytes % (Manual) (20-40) % Atypical Lymphs % % Monocytes % (Manual) (2-10) % Eosinophils % (Manual) (0.8-7.0) % Basophils % (Manual) (0.2-1.2) Platelet Estimate Plt Morphology Comment Poikilocytosis RBC Morph Comment PT (9.5-12.1) SECONDS INR APTT (24-31) SECONDS D-Dimer, Quantitative (0.19-0.50) mg/L Puncture Site Rt brachial ABG pH 7.38 (7.35-7.45) ABG pCO2 49.9 H (35.0-45.0) mmHg ABG pO2 85.0 (80.0-100.0) mmHg ABG HCO3 28.6 H (22.0-26.0) meq/L ABG O2 Saturation 96.0 (96.0-97.0) % ABG Base Excess 3.3 H (-2-2.0) A-a Gradient 58 mmHg O2 Delivery Device Cannula Oxygen Flow Rate 3.0 FiO2 32.00 (21.00-100.00) % Sodium (136-145) mEq/L Potassium (3.5-5.1) mEq/L Chloride (98-107) mEq/L Carbon Dioxide (21-32) mEq/L Anion Gap (5-15) BUN (7-18) mg/dL Creatinine (0.7-1.3) mg/dL Est Cr Clr Drug Dosing Estimated GFR (MDRD) (>60) mL/min BUN/Creatinine Ratio (14-18) Glucose (83-115) mg/dL POC Glucose 119 H (83-110) mg/dL Lactic Acid (0.4-2.0) mmol/L Calcium (8.5-10.1) mg/dL Magnesium (1.8-2.4) mg/dl Total Bilirubin (0.2-1.0) mg/dL AST (15-37) U/L ALT (16-63) U/L Alkaline Phosphatase (46-116) U/L Troponin I (0.00-0.056) ng/mL NT-Pro-B Natriuret Pep (0-450) pg/mL Total Protein (6.4-8.2) g/dl Albumin (3.4-5.0) g/dl Globulin gm/dL Albumin/Globulin Ratio (1-2) Urine Color (Yellow) Urine Appearance (Clear) Urine pH (5.0-8.0) Ur Specific [place] (1.005-1.030) Urine Protein (Negative) Urine Glucose (UA) (Negative) Urine Ketones (Negative) Urine Occult Blood (Negative) Urine Nitrite (Negative) Urine Bilirubin (Negative) Urine Urobilinogen (0.2-1.0) Ur Leukocyte Esterase (Negative) Urine RBC (0-5) /hpf Urine WBC (0-5) /hpf Ur Epithelial Cells (0-5) /hpf Urine Bacteria (FEW) /hpf Hyaline Casts (0-5) /lpf Urine Mucus (FEW) /hpf Result Diagrams: 08/05/17 06:06 08/05/17 06:06 Greg Results Last 24 hrs: Microbiology 08/03/17 20:30 Influenza Type A Antigen Screen - Final Nasopharyngeal Swab NEGATIVE INFLUENZA A VIRUS AG Influenza Type B Antigen Screen - Final NEGATIVE INFLUENZA B VIRUS AG Problem List Initiated/Reviewed/Updated: Yes Orders Last 24hrs: Active Orders 24 hr Category Date Time Status Patient Status [ADT] Routine ADT 08/04/17 03:01 Active Bedrest Bathroom Privileges [RC] QSHIFT Care 08/04/17 03:38 Active Low Salt [Sodium Restricted Diet] [DIET] Diet 08/04/17 Breakfast Active Chest 1V Frontal [CR] Stat Exams 08/03/17 20:38 Taken CULTURE BLOOD [BC] Stat Lab 08/03/17 21:18 Received CULTURE BLOOD [BC] Stat Lab 08/03/17 21:30 Received INFLUENZA A+B AG SCREEN [RM] Stat Lab 08/03/17 20:30 Ordered Furosemide [Lasix] Med 08/04/17 06:00 Active 40 mg IVPUSH Q6HR Blood Culture x2 Reflex Set [OM.PC] Stat Oth 08/03/17 20:38 Ordered Code Status [Resuscitation Status] Routine Resus Stat 08/04/17 03:35 Ordered Medication Orders Furosemide (Lasix) 40 mg IVPUSH Q6HR MALA Assessment/Plan Comment:: Assessment/Plan: Acute: Mild CHF - Obvious signs of peripheral edema - Pro BNP 1189 - Heart Failure protocol; diuretics, Is/Os, daily weights, salt and fluid restrictions - Consider 2D echo if he has not one done in the past 6months DM2 with Hyperglycemia - BS 128 on admission - Accu-check and ISS - ADA diet - Last A1C 9.6 in 04/25/2017; repeat A1C check in AM Relatively Hypotension - His pressures on the floor were not in the hypotensive range - May need to hold BP meds - Monitor per unit protocol Chronic: Impaired Vision Atrial Fibrillation, HR Controlled, on ASA (Not on anticoags??) (Did not see any on his inpatient Active Med List but Eliquis is listed as Home Meds) CAD HLD HTN Aortic Stenosis COPD AGNES GERD Hemorrhoids BPH Renal Stones Back Pain OS/DJD TIA RODRIGO Depression Obesity with BMI of 30+ Plan: 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
[2017-08-04] MEDS ORDERED: Metoprolol Tartrate 5 MG/5 ML SDV IVPUSH PRN (05:42)
[2017-08-04] MEDS ORDERED: hydrALAZINE 20 MG/ML SDV IVPUSH PRN (05:42)
[2017-08-04] MEDS ORDERED: LORazepam 2 MG/ML SDV IVPUSH PRN (05:42)
[2017-08-04] MEDS ORDERED: Triamcinolone Acetonide 0.1% Dental Paste 5 GM Tube DENT PRN (05:43)
[2017-08-04] MEDS ORDERED: Menthol/Methyl Salicylate 29 GM Tube TOP PRN (05:43)
[2017-08-04] MEDS ORDERED: Hypromellose 0.5% Ophth Soln 15 ML Bottle EYEBOTH PRN (05:43)
[2017-08-04] MEDS ORDERED: LORazepam 2 MG/ML SDV IV PRN (05:45)
[2017-08-04] MEDS ORDERED: Bisacodyl 5 MG Tab PO PRN (05:45)
[2017-08-04] MEDS ORDERED: Promethazine 6.25 MG in Sodium Chloride 0.9% 50 ML IV PRN (05:45)
[2017-08-04] MEDS ORDERED: Ondansetron 4 MG/2 ML SDV IV PRN (05:45)
[2017-08-04] MEDS ORDERED: Acetaminophen/HYDROcodone 325-5 MG Tab PO PRN (05:45)
[2017-08-04] MEDS ORDERED: Polyethylene Glycol 3350 Powder 17 GM Packet PO PRN (05:45)
[2017-08-04] MEDS ORDERED: Sodium Chloride 0.9% 10 ML Syringe FLUSH PRN (05:45)
[2017-08-04] MEDS ORDERED: Albuterol/Ipratropium 3.0-0.5 MG/3 ML Neb Soln NEB PRN (05:45)
[2017-08-04] MEDS ORDERED: HYDROmorphone 0.5 MG/0.5 ML SYRINGE IVPUSH PRN (05:45)
[2017-08-04] MEDS ORDERED: Acetaminophen 325 MG Tab PO PRN (05:45)
[2017-08-04] MEDS ORDERED: Temazepam 7.5 MG Cap PO PRN (05:45)
[2017-08-04] MEDS ORDERED: Docusate Sodium 100 MG Cap PO PRN (05:45)
[2017-08-04] MEDS: Furosemide 40 MG/4 ML VIAL IVPUSH SCH ×3 (07:35→18:38)
[2017-08-04] MEDS: Enoxaparin 40 MG/0.4 ML Syringe SUBCUT SCH (10:05)
[2017-08-04] MEDS: Magnesium Oxide 400 MG Tab PO SCH (11:16)
[2017-08-04] MEDS: Polyethylene Glycol 3350 Powder 17 GM Packet PO SCH (11:49)
[2017-08-04] MEDS: Saccharomyces Boulardii (Probiotic) 250 MG Cap PO SCH (13:01)
[2017-08-04] MEDS: Sennosides 8.6 MG Tab PO SCH (13:01)
[2017-08-04] MEDS: Hypromellose 0.5% Ophth Soln 15 ML Bottle EYEBOTH SCH ×2 (13:01→21:33)
[2017-08-04] MEDS: Calcium Carbonate 500 MG Tab.Chew PO SCH (13:01)
[2017-08-04] MEDS: Bisacodyl 5 MG Tab PO SCH (13:02)
[2017-08-04] MEDS: Docusate Sodium 100 MG Cap PO SCH ×2 (13:02→21:46)
[2017-08-04] MEDS: Insulin Detemir 100 Units/ML 3 ML Pen SUBCUT SCH (13:03)
[2017-08-04] MEDS: Gabapentin 300 MG Cap PO SCH ×2 (13:03→21:42)
[2017-08-04] MEDS: METOPROLOL TARTRATE 50 MG PO SCH ×2 (13:05→21:34)
[2017-08-04] MEDS: RISPERIDONE 0.25 MG PO SCH (13:06)
[2017-08-04] MEDS: DILTIAZEM IR PO SCH ×2 (13:07→19:55)
[2017-08-04] MEDS: METFORMIN 500 MG PO SCH ×2 (13:08→16:08)
[2017-08-04] MEDS: Sacubitril/Valsartan [Entresto 24 Mg-26 Mg Tablet] PO SCH (13:08)
[2017-08-04] MEDS: APIXABAN 2.5 MG PO SCH ×2 (13:15→21:39)
--- NOTE | 2017-08-04 14:55 | CR ---
Chest: Portable view of the chest was obtained. Comparison: Prior chest x-ray of 06/29/17. Heart size is slightly enlarged. Pulmonary vessels are felt to be minimally congested. Mild atelectasis is seen within both lung bases. Bony structures are osteopenic. Impression: 1. Findings suspicious for early CHF. Diagnostic code #3
[2017-08-04] MEDS: traMADol 50 MG Tab PO SCH ×2 (16:05→21:42)
[2017-08-04] MEDS: Menthol/Methyl Salicylate 29 GM Tube TOP SCH ×2 (16:06→21:45)
[2017-08-04] MEDS ORDERED: 50% Dextrose in Water 50 ML Syringe IVPUSH PRN (18:11)
[2017-08-04] MEDS: DONEPEZIL 10 MG PO SCH (21:31)
[2017-08-04] MEDS: TAMSULOSIN 0.4 MG PO SCH (21:33)
[2017-08-04] MEDS: Insulin Aspart 100 Units/ML 3 ML Pen SUBCUT SCH (21:47)
[2017-08-05] MEDS: Furosemide 40 MG/4 ML VIAL IVPUSH SCH ×2 (01:01→06:26)
[2017-08-05] MEDS: DILTIAZEM IR PO SCH ×3 (04:00→21:15)
[2017-08-05] MEDS: Insulin Aspart 100 Units/ML 3 ML Pen SUBCUT SCH ×4 (06:27→22:48)
[2017-08-05] MEDS ORDERED: Pantoprazole 40 MG Tab.CR PO SCH (07:00)
[2017-08-05] MEDS: Polyethylene Glycol 3350 Powder 17 GM Packet PO SCH (08:30)
[2017-08-05] MEDS: Bisacodyl 5 MG Tab PO SCH (08:30)
[2017-08-05] MEDS: Enoxaparin 40 MG/0.4 ML Syringe SUBCUT SCH (08:30)
[2017-08-05] MEDS: Saccharomyces Boulardii (Probiotic) 250 MG Cap PO SCH (08:30)
[2017-08-05] MEDS: traMADol 50 MG Tab PO SCH ×3 (08:31→21:07)
[2017-08-05] MEDS: Sennosides 8.6 MG Tab PO SCH (08:31)
[2017-08-05] MEDS: Docusate Sodium 100 MG Cap PO SCH ×2 (08:31→21:09)
[2017-08-05] MEDS: Calcium Carbonate 500 MG Tab.Chew PO SCH (08:31)
[2017-08-05] MEDS: Magnesium Oxide 400 MG Tab PO SCH (08:31)
[2017-08-05] MEDS: Gabapentin 300 MG Cap PO SCH ×2 (08:32→21:10)
[2017-08-05] MEDS: RISPERIDONE 0.25 MG PO SCH (08:32)
[2017-08-05] MEDS: METFORMIN 500 MG PO SCH ×2 (08:32→17:34)
[2017-08-05] MEDS: METOPROLOL TARTRATE 50 MG PO SCH ×2 (11:35→21:14)
--- NOTE | 2017-08-05 11:41 | PCM.PN ---
- General Info Date of Service: 08/05/17 Admission Dx/Problem (Free Text): Admission Diagnosis/Problem Admission Diagnosis/Problem Congestive heart failure Subjective Update: In to see Brian today. I am very familiar with him and he looks very good. He does have some unilateral right sided upper extremity swelling. D-Dimmer is slightly elevated but likely due to his chronic health conditions and not an acute episode. It is actually down from his last visit. Venous US ordered and nursing has been instructed to elevate extremity. Otherwise he is looking very good and will likely be discharged tomorrow pending continued improvement. His BNP is lower today than it has ever been while here. Functional Status: Reports: Pain Controlled, Tolerating Diet, Urinating. Denies : Ambulating, New Symptoms - Review of Systems General: Reports: Weakness, Fatigue, Malaise. Denies: Fever, Chills HEENT: Reports: No Symptoms. Denies: Eye Pain, Sinus Congestion, Sore Throat Pulmonary: Reports: Shortness of Breath, Wheezing. Denies: Cough, Sputum Cardiovascular: Reports: Dyspnea on Exertion, Orthopnea, Edema. Denies: Chest Pain, Palpitations, Lightheadedness Gastrointestinal: Denies: Abdominal Pain, Constipation, Diarrhea, Nausea, Vomiting Genitourinary: Reports: No Symptoms Musculoskeletal: Reports: No Symptoms Skin: Reports: No Symptoms Neurological: Reports: Confusion (bseline) Psychiatric: Reports: No Symptoms - Patient Data Vitals - Most Recent: Last Vital Signs Temp 98.6 F 08/05/17 03:58 Pulse 100 08/05/17 11:35 Resp 21 H 08/05/17 06:10 BP 89/54 L 08/05/17 11:35 Pulse Ox 97 08/05/17 08:48 Weight - Most Recent: 204 lb 1.6 oz I&O - Last 24 Hours: Intake & Output 08/04/17 08/05/17 08/05/17 22:59 06:59 14:59 Intake Total 300 100 120 Output Total 200 Balance 300 -100 120 Lab Results Last 24 Hours: Laboratory Results - last 24 hr 08/04/17 08/04/17 08/05/17 Range/Units 16:59 21:27 06:06 WBC 6.47 (4.23-9.07) K/mm3 RBC 2.90 L (4.63-6.08) M/mm3 Hgb 9.5 L (13.7-17.5) gm/L Hct 29.6 L (40.1-51.0) % MCV 102.1 H (79.0-92.2) fl MCH 32.8 H (25.7-32.2) pg MCHC 32.1 L (32.2-35.5) g/dl RDW Std Deviation 72.3 H (35.1-43.9) fL Plt Count 173 (163-337) K/mm3 MPV 11.0 (9.4-12.3) fl Neut % (Auto) 60.0 (34.0-67.9) % Lymph % (Auto) 28.0 (21.8-53.1) % [place] % (Auto) 9.3 (5.3-12.2) % Eos % (Auto) 2.2 (0.8-7.0) Baso % (Auto) 0.2 (0.1-1.2) % Neut # (Auto) 3.89 (1.78-5.38) K/mm3 Lymph # (Auto) 1.81 (1.32-3.57) K/mm3 [place] # (Auto) 0.60 (0.30-0.82) K/mm3 Eos # (Auto) 0.14 (0.04-0.54) K/mm3 Baso # (Auto) 0.01 (0.01-0.08) K/mm3 D-Dimer, Quantitative (0.19-0.50) mg/L Sodium (136-145) mEq/L Potassium (3.5-5.1) mEq/L Chloride (98-107) mEq/L Carbon Dioxide (21-32) mEq/L Anion Gap (5-15) BUN (7-18) mg/dL Creatinine (0.7-1.3) mg/dL Est Cr Clr Drug Dosing mL/min Estimated GFR (MDRD) (>60) mL/min BUN/Creatinine Ratio (14-18) Glucose (83-115) mg/dL POC Glucose 117 H 104 (83-110) mg/dL Hemoglobin A1c (4.50-6.20) % Calcium (8.5-10.1) mg/dL Magnesium (1.8-2.4) mg/dl NT-Pro-B Natriuret Pep (0-450) pg/mL 08/05/17 08/05/17 08/05/17 Range/Units 06:06 06:06 06:06 WBC (4.23-9.07) K/mm3 RBC (4.63-6.08) M/mm3 Hgb (13.7-17.5) gm/L Hct (40.1-51.0) % MCV (79.0-92.2) fl MCH (25.7-32.2) pg MCHC (32.2-35.5) g/dl RDW Std Deviation (35.1-43.9) fL Plt Count (163-337) K/mm3 MPV (9.4-12.3) fl Neut % (Auto) (34.0-67.9) % Lymph % (Auto) (21.8-53.1) % [place] % (Auto) (5.3-12.2) % Eos % (Auto) (0.8-7.0) Baso % (Auto) (0.1-1.2) % Neut # (Auto) (1.78-5.38) K/mm3 Lymph # (Auto) (1.32-3.57) K/mm3 [place] # (Auto) (0.30-0.82) K/mm3 Eos # (Auto) (0.04-0.54) K/mm3 Baso # (Auto) (0.01-0.08) K/mm3 D-Dimer, Quantitative (0.19-0.50) mg/L Sodium 141 (136-145) mEq/L Potassium 4.1 (3.5-5.1) mEq/L Chloride 101 (98-107) mEq/L Carbon Dioxide 33 H (21-32) mEq/L Anion Gap 11.1 (5-15) BUN 17 (7-18) mg/dL Creatinine 0.9 (0.7-1.3) mg/dL Est Cr Clr Drug Dosing 58.06 mL/min Estimated GFR (MDRD) > 60 (>60) mL/min BUN/Creatinine Ratio 18.9 H (14-18) Glucose 85 (83-115) mg/dL POC Glucose (83-110) mg/dL Hemoglobin A1c 5.70 (4.50-6.20) % Calcium 8.7 (8.5-10.1) mg/dL Magnesium 1.7 L (1.8-2.4) mg/dl NT-Pro-B Natriuret Pep 857 H (0-450) pg/mL 08/05/17 08/05/17 08/05/17 Range/Units 06:06 06:07 11:28 WBC (4.23-9.07) K/mm3 RBC (4.63-6.08) M/mm3 Hgb (13.7-17.5) gm/L Hct (40.1-51.0) % MCV (79.0-92.2) fl MCH (25.7-32.2) pg MCHC (32.2-35.5) g/dl RDW Std Deviation (35.1-43.9) fL Plt Count (163-337) K/mm3 MPV (9.4-12.3) fl Neut % (Auto) (34.0-67.9) % Lymph % (Auto) (21.8-53.1) % [place] % (Auto) (5.3-12.2) % Eos % (Auto) (0.8-7.0) Baso % (Auto) (0.1-1.2) % Neut # (Auto) (1.78-5.38) K/mm3 Lymph # (Auto) (1.32-3.57) K/mm3 [place] # (Auto) (0.30-0.82) K/mm3 Eos # (Auto) (0.04-0.54) K/mm3 Baso # (Auto) (0.01-0.08) K/mm3 D-Dimer, Quantitative 0.81 H (0.19-0.50) mg/L Sodium (136-145) mEq/L Potassium (3.5-5.1) mEq/L Chloride (98-107) mEq/L Carbon Dioxide (21-32) mEq/L Anion Gap (5-15) BUN (7-18) mg/dL Creatinine (0.7-1.3) mg/dL Est Cr Clr Drug Dosing mL/min Estimated GFR (MDRD) (>60) mL/min BUN/Creatinine Ratio (14-18) Glucose (83-115) mg/dL POC Glucose 84 188 H (83-110) mg/dL Hemoglobin A1c (4.50-6.20) % Calcium (8.5-10.1) mg/dL Magnesium (1.8-2.4) mg/dl NT-Pro-B Natriuret Pep (0-450) pg/mL Greg Results Last 24 Hours: Microbiology 08/03/17 21:30 Aerobic Blood Culture - Preliminary Blood - Venous NO GROWTH AFTER 1 DAY Anaerobic Blood Culture - Preliminary NO GROWTH AFTER 1 DAY 08/03/17 21:18 Aerobic Blood Culture - Preliminary Blood - Venous - Lab Draw NO GROWTH AFTER 1 DAY Anaerobic Blood Culture - Preliminary NO GROWTH AFTER 1 DAY Med Orders - Current: Current Medications Acetaminophen (Tylenol) 650 mg PO Q4H PRN PRN Reason: Pain (Mild 1-3)/fever Last Admin: 08/04/17 11:16 Dose: 650 mg Hydrocodone Bitart/Acetaminophen ([place] 325-5 Mg) 1 tab PO Q4H PRN PRN Reason: Pain (moderate 4-6) Albuterol/Ipratropium (Duoneb 3.0-0.5 Mg/3 Ml) 3 ml NEB Q4H PRN PRN Reason: Shortness Of Breath/wheezing Artificial Tears (Isopto Tears 0.5% Ophth Soln) 0 ml EYEBOTH BID [facility] Last Admin: 08/04/17 21:33 Dose: 2 drop Artificial Tears (Isopto Tears 0.5% Ophth Soln) 0 ml EYEBOTH BID PRN PRN Reason: Dry Eyes Bisacodyl (Dulcolax) 5 mg PO DAILY PRN PRN Reason: Constipation Bisacodyl (Dulcolax) 10 mg PO DAILY [facility] Last Admin: 08/05/17 08:30 Dose: 10 mg Calcium Carbonate/Glycine (Tums) 500 mg PO DAILY [facility] Last Admin: 08/05/17 08:31 Dose: 500 mg Dextrose/Water (Dextrose 50% In Water) 50 ml IVPUSH ASDIRECTED PRN PRN Reason: Hypoglycemia Diltiazem HCl (Cardizem) 60 mg PO Q8H [facility] Last Admin: 08/05/17 04:00 Dose: Not Given Docusate Sodium (Colace) 100 mg PO BID PRN PRN Reason: Constipation Last Admin: 08/04/17 21:41 Dose: 100 mg Docusate Sodium (Colace) 200 mg PO BID [facility] Last Admin: 08/05/17 08:31 Dose: 200 mg Donepezil HCl (Aricept) 10 mg PO BEDTIME [facility] Last Admin: 08/04/17 21:31 Dose: 10 mg Enoxaparin Sodium (Lovenox) 40 mg SUBCUT DAILY [facility] Last Admin: 08/05/17 08:30 Dose: 40 mg Ferrous Sulfate (Ferrous Sulfate) 324 mg PO BEDTIME [facility] Furosemide (Lasix) 40 mg PO DAILY [facility] Gabapentin (Neurontin) 300 mg PO BID [facility] Last Admin: 08/05/17 08:32 Dose: 300 mg Hydralazine HCl (Apresoline) 10 mg IVPUSH Q4H PRN PRN Reason: Hypertension Hydromorphone HCl (Dilaudid) 0.25 mg IVPUSH Q2H PRN PRN Reason: Pain (severe 7-10) Promethazine HCl 6.25 mg/ (Sodium Chloride) 50.25 mls @ 100 mls/hr IV Q6H PRN PRN Reason: Nausea/Vomiting Insulin Aspart (Novolog) 0 unit SUBCUT QIDACANDBED [facility]; Protocol Last Admin: 08/05/17 06:27 Dose: Not Given Insulin Detemir (Levemir) 12 unit SUBCUT ACLUNCH [facility] Last Admin: 08/04/17 13:03 Dose: 12 units Lorazepam (Ativan) 2 mg IVPUSH Q4H PRN PRN Reason: Seizures Lorazepam (Ativan) 0.25 mg IV Q6H PRN PRN Reason: Anxiety Magnesium Oxide (Magnesium Oxide) 400 mg PO DAILY [facility] Last Admin: 08/05/17 08:31 Dose: 400 mg Magnesium Sulfate (Pharmacy To Dose - Magnesium Replacement) 0 dose .XX ASDIRECTED PRN PRN Reason: RX TO WATCH MAG LEVELS Metformin HCl (Glucophage) 250 mg PO BIDMEALS [facility] Last Admin: 08/05/17 08:32 Dose: 250 mg Methyl Salicylate (Analgesic [place]) 0 gm TOP TID [facility] Last Admin: 08/04/17 21:45 Dose: 1 gm Methyl Salicylate (Analgesic [place]) 0 gm TOP ASDIRECTED PRN PRN Reason: Pain Metoprolol Tartrate (Lopressor) 50 mg PO Q12HR [facility] Last Admin: 08/05/17 11:35 Dose: Not Given Metoprolol Tartrate (Lopressor) 5 mg IVPUSH Q4H PRN PRN Reason: Tachycardia Ondansetron HCl (Zofran) 4 mg IV Q6H PRN PRN Reason: Nausea/Vomiting Last Admin: 08/04/17 22:20 Dose: 4 mg Omeprazole 20 Mg 0 each PO BIDAC [facility] Last Admin: 08/05/17 06:57 Dose: Not Given Sacubitril/Valsartan [Entresto 24 Mg-26 Mg Tablet] 0 each PO DAILY [facility] Last Admin: 08/04/17 13:08 Dose: 1 each Apixaban 2.5 Mg 0 each PO BID [facility] Last Admin: 08/04/17 21:39 Dose: 1 each Duloxetine 60 Mg 0 each PO DAILY [facility] Last Admin: 08/04/17 13:08 Dose: 1 each Polyethylene Glycol (Miralax) 17 gm PO DAILY [facility] Last Admin: 08/05/17 08:30 Dose: 17 gm Polyethylene Glycol (Miralax) 17 gm PO DAILY PRN PRN Reason: Constipation Potassium Chloride (Pharmacy To Dose - Potassium Replacement) 0 dose .XX ASDIRECTED PRN PRN Reason: RX TO WATCH K LEVELS Risperidone (Risperidal) 0.25 mg PO DAILY [facility] Last Admin: 08/05/17 08:32 Dose: 0.25 mg Saccharomyces Boulardii (Florastor) 250 mg PO DAILY [facility] Last Admin: 08/05/17 08:30 Dose: 250 mg Senna (Senna) 17.2 mg PO DAILY [facility] Last Admin: 08/05/17 08:31 Dose: 17.2 mg Senna/Docusate Sodium (Senna Plus) 1 tab PO BID PRN PRN Reason: Constipation Sodium Chloride (Saline Flush) 10 ml FLUSH ASDIRECTED PRN PRN Reason: Keep Vein Open Tamsulosin HCl (Flomax) 0.4 mg PO BEDTIME [facility] Last Admin: 08/04/17 21:33 Dose: 0.4 mg Temazepam (Restoril) 7.5 mg PO BEDTIME PRN PRN Reason: Sleep Tramadol HCl (Ultram) 100 mg PO TID [facility] Last Admin: 08/05/17 08:31 Dose: 100 mg Vitamin E (Vitamin E) 400 units PO DAILY [facility] Discontinued Medications Furosemide (Lasix) 40 mg IVPUSH NOW ONE Stop: 08/03/17 21:41 Last Admin: 08/03/17 21:46 Dose: 40 mg Furosemide (Lasix) 40 mg IVPUSH Q6HR [facility] Last Admin: 08/05/17 06:26 Dose: Not Given - Exam Quality Assessment: Supplemental Oxygen (chronic ), DVT Prophylaxis General: Alert, Cooperative, No Acute Distress HEENT: Pupils Equal, Pupils Reactive, EOMI, Mucous Membr. Moist/Musella Neck: Supple, Trachea Midline, No JVD Lungs: Normal Respiratory Effort, Decreased Breath Sounds Cardiovascular: No Murmurs, Irregular Rhythm GI/Abdominal Exam: Normal Bowel Sounds, Soft, Non-Tender, No Organomegaly, No Distention, No Abnormal Bruit, No Mass, Pelvis Stable (Male) Exam: Deferred Back Exam: Normal Inspection, Decreased Range of Motion Extremities: Non-Tender, Pedal Edema (1+), Limited Range of Motion, Other ( right sided upper extremity edema ) Skin: Warm, Intact, Ecchymosis Neurological: No New Focal Deficit Psy/Mental Status: Alert, Normal Affect, Normal Mood - Problem List & Annotations (1) CHF (congestive heart failure) SNOMED Code(s): 03434312 Code(s): I50.9 - HEART FAILURE, UNSPECIFIED Status: Acute Priority: High Current Visit: Yes Qualifiers: Heart failure type: unspecified Heart failure chronicity: unspecified Qualified Code(s): I50.9 - Heart failure, unspecified (2) Hypertension SNOMED Code(s): 26583277 Code(s): I10 - ESSENTIAL (PRIMARY) HYPERTENSION Status: Chronic Priority : High Current Visit: No Qualifiers: Hypertension type: unspecified Qualified Code(s): I10 - Essential (primary ) hypertension (3) Atrial fibrillation SNOMED Code(s): 11194739 Code(s): I48.91 - UNSPECIFIED ATRIAL FIBRILLATION Status: Chronic Priority: Medium Current Visit: No Qualifiers: Atrial fibrillation type: chronic Qualified Code(s): I48.2 - Chronic atrial fibrillation (4) BPH (benign prostatic hyperplasia) SNOMED Code(s): 186644616 Code(s): N40.0 - BENIGN PROSTATIC HYPERPLASIA WITHOUT LOWER URINRY TRACT SYMP Status: Chronic Priority: Low Current Visit: No Qualifiers: Lower urinary tract symptom presence: unspecified whether lower urinary tract symptoms present Qualified Code(s): N40.0 - Benign prostatic hyperplasia without lower urinary tract symptoms (5) CAD (coronary artery disease) SNOMED Code(s): 26147647 Code(s): I25.10 - ATHSCL HEART DISEASE OF [place] CORONARY ARTERY W/O ANG PCTRS Status: Chronic Priority: Low Current Visit: No Qualifiers: Coronary Disease-Associated Artery/Lesion type: unspecified vessel or lesion type [place] vs. 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 insulin use: without alf use Diabetes mellitus complication status: with hyperglycemia Qualified Code(s): E11.65 - Type 2 diabetes mellitus with hyperglycemia - Problem List Review Problem List Initiated/Reviewed/Updated: Yes - My Orders Last 24 Hours: My Active Orders 08/04/17 12:00 Bisacodyl [Dulcolax] 10 mg PO DAILY Calcium Carbonate [Tums] 500 mg PO DAILY Diltiazem IR [Cardizem] 60 mg PO Q8H Docusate Sodium [Colace] 200 mg PO BID Gabapentin [Neurontin] 300 mg PO BID Patient's Own Medication [Ptom] 0 each PO BID Patient's Own Medication [Ptom] 0 each PO DAILY 08/04/17 18:11 Blood Glucose Check, Bedside [RC] QIDACANDBED Dextrose 50% in Water 50 ml IVPUSH ASDIRECTED PRN 08/04/17 21:00 Donepezil [Aricept] 10 mg PO BEDTIME 08/04/17 22:00 Insulin Aspart [NovoLOG] See Protocol SUBCUT QIDACANDBED 08/05/17 09:54 Elevate Extremity [RC] BID 08/05/17 10:55 VL Duplex Upr Ext Veins Ltd Rt [US] Routine 08/05/17 11:45 Vitamin E (dl, acetate) [Vitamin E] 400 units PO DAILY 08/05/17 21:00 Ferrous Sulfate 324 mg PO BEDTIME 08/05/17 Lunch Fluid Restriction [DIET] - Plan Plan:: Assessment/Plan: Acute: Mild CHF - Obvious signs of peripheral edema, improving - Pro BNP 1189-->857 (best it has ever been recorded here) - Heart Failure protocol; diuretics, Is/Os, daily weights, salt and fluid restrictions -> Resume home lasix - Last echo (06/25/17) - LVEF 60-65% -Normal LV systolic function -Right ventricular size is mildly enlarged -Moderate aortic valve stenosis -At least moderate mitral valve regurg -Right ventricular systolic pressure is moderately elevated -Inferior vena cava is dilated with respiratory size variation greater than 50% -No regional wall motion abnormalities -Mild biatrial dilation -Atrial fibrillation -No significant change from 12/11/16. DM2 with Hyperglycemia - BS 128 on admission - Accu-check and ISS - ADA diet - Last A1C 9.6 in 04/25/2017; repeat A1C check in AM Relatively Hypotension - His pressures on the floor were not in the hypotensive range - May need to hold BP meds - Monitor per unit protocol Right sided upper extremity edema - Has been present in past - D-Dimer very minimally elevated - Venous ultrasound of extremity ordered Chronic: Impaired Vision Atrial Fibrillation, HR Controlled, on ASA (Not on anticoags??) (Did not see any on his inpatient Active Med List but Eliquis is listed as Home Meds) CAD HLD HTN Aortic Stenosis COPD AGNES GERD Hemorrhoids BPH Renal Stones Back Pain OS/DJD TIA RODRIGO Depression Obesity with BMI of 30+ Plan: He has improved greatly Home meds as ordered Routine AM Labs Fall Precautions DVT PPx: Lovenox SubQ for now--> Stop lovenox, resume home elequis PT/OT consult SW/CM for d/c planning Code status: DNR/DNI; PCP: Dr. Turner
[2017-08-05] MEDS: Menthol/Methyl Salicylate 29 GM Tube TOP SCH ×3 (12:56→21:11)
[2017-08-05] MEDS: Hypromellose 0.5% Ophth Soln 15 ML Bottle EYEBOTH SCH ×2 (12:57→21:12)
[2017-08-05] MEDS: APIXABAN 2.5 MG PO SCH ×2 (12:57→21:15)
[2017-08-05] MEDS: Sacubitril/Valsartan [Entresto 24 Mg-26 Mg Tablet] PO SCH (13:01)
[2017-08-05] MEDS: Vitamin E (dl-alpha-tocopherol acetate) 400 Unit Cap PO SCH (13:15)
[2017-08-05] MEDS: Insulin Detemir 100 Units/ML 3 ML Pen SUBCUT SCH (13:16)
--- NOTE | 2017-08-05 14:20 | US ---
Right upper extremity venous ultrasound: Duplex and color flow imaging was obtained of the right internal jugular, subclavian, axillary, brachial, cephalic, basilic, ulnar and radial veins. Findings: Normal phasic flow, augmentation and compression are seen. Mild scattered subcutaneous edema is seen. Impression: 1. Scattered subcutaneous edema. 2. No evidence of venous thrombosis is seen within the right upper extremity. Diagnostic code #2
[2017-08-05] MEDS ORDERED: Ferrous Sulfate 325 MG Tab PO SCH (21:00)
[2017-08-05] MEDS: TAMSULOSIN 0.4 MG PO SCH (21:13)
[2017-08-05] MEDS: DONEPEZIL 10 MG PO SCH (21:14)
[2017-08-06] MEDS: DILTIAZEM IR PO SCH ×2 (04:00→12:06)
[2017-08-06] MEDS: Insulin Aspart 100 Units/ML 3 ML Pen SUBCUT SCH ×2 (07:56→11:10)
[2017-08-06] MEDS: METFORMIN 500 MG PO SCH (07:57)
[2017-08-06] MEDS: Menthol/Methyl Salicylate 29 GM Tube TOP SCH ×2 (07:59→15:01)
[2017-08-06] MEDS: Vitamin E (dl-alpha-tocopherol acetate) 400 Unit Cap PO SCH (08:00)
[2017-08-06] MEDS: Polyethylene Glycol 3350 Powder 17 GM Packet PO SCH (08:00)
[2017-08-06] MEDS: Saccharomyces Boulardii (Probiotic) 250 MG Cap PO SCH (08:00)
[2017-08-06] MEDS: Docusate Sodium 100 MG Cap PO SCH (08:00)
[2017-08-06] MEDS: Sennosides 8.6 MG Tab PO SCH (08:00)
[2017-08-06] MEDS: traMADol 50 MG Tab PO SCH ×2 (08:01→15:00)
[2017-08-06] MEDS: RISPERIDONE 0.25 MG PO SCH (08:01)
[2017-08-06] MEDS: Gabapentin 300 MG Cap PO SCH (08:01)
[2017-08-06] MEDS: Calcium Carbonate 500 MG Tab.Chew PO SCH (08:01)
[2017-08-06] MEDS: Bisacodyl 5 MG Tab PO SCH (08:01)
[2017-08-06] MEDS: Magnesium Oxide 400 MG Tab PO SCH (08:01)
[2017-08-06] MEDS: METOPROLOL TARTRATE 50 MG PO SCH ×2 (08:03→12:28)
[2017-08-06] MEDS: Hypromellose 0.5% Ophth Soln 15 ML Bottle EYEBOTH SCH (08:03)
[2017-08-06] MEDS: Sacubitril/Valsartan [Entresto 24 Mg-26 Mg Tablet] PO SCH ×2 (08:05→08:50)
[2017-08-06] MEDS: APIXABAN 2.5 MG PO SCH (08:13)
[2017-08-06] MEDS ORDERED: Furosemide 40 MG Tab PO SCH (09:00)
[2017-08-06] MEDS: Insulin Detemir 100 Units/ML 3 ML Pen SUBCUT SCH (09:06)
[2017-08-06] MEDS ORDERED: Magnesium Oxide 400 MG Tab PO ONE (11:03)
--- NOTE | 2017-08-06 11:08 | PCM.DCSUM1 ---
Discharge Summary - Hospital Course HPI Initial Comments: This is an 86 yo eldelry white male with past medical hx/o Impaired Vision Atrial Fibrillation, CAD, HLD, HTN, Aortic Stenosis, COPD, AGNES, GERD, Hemorrhoids, BPH, Renal Stones, Back Pain, OS/DJD, TIA, RODRIGO, Depression, and Obesity with BMI of 30+ who was sent overnight from [facility] with report of bilateral arm edema, hyperglycemia as high as 160s and hypotension with blood pressure readings of 86/54 mmHgb in the longterm. Patient is a poor historian. HPI is obtained from secondary sources. Per ED notes, his daughter reports patient having low O2 sat and that his sugar has not been fully controlled with significant fluctuations. He has been eating normally. Patient also has been having adventitious lung sounds in the past couple of days. No reports of systemic signs of infections. His most recent hospitalization was June 2017. His initial work up in ED shows a CBC remarkable for RBC of 3.20, Hgb ot 10.5, Hct of 32.7, MCV of 102.2, MCH of 32.8, MCHC of 32.1, and RDW of 72.8. His coagulation studies show a PT of 12.3, INR of 1.13, aPTT of 29 and D-Dimer of 1.04. His chemistry is significant for CO2 of 33, BS of 128, AST of 12, ALT of 12, ProBNP of 1189, and Total Protein of 6.2. His UA is negative for UTI. His CXR report reads mild pulmonary congestion. 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 He is DNR. - Discharge Data Discharge Date: 08/06/17 (Admit date: 08/04/17) Discharge Disposition: DC/Tfer to SNF 03 Condition: Good - Discharge Diagnosis/Problem(s) (1) CHF (congestive heart failure) SNOMED Code(s): 16956944 ICD Code: I50.9 - HEART FAILURE, UNSPECIFIED Status: Acute Priority: High Current Visit: Yes Qualifiers: Heart failure type: unspecified Heart failure chronicity: unspecified Qualified Code(s): I50.9 - Heart failure, unspecified (2) Hypertension SNOMED Code(s): 91351663 ICD Code: I10 - ESSENTIAL (PRIMARY) HYPERTENSION Status: Chronic Priority : High Current Visit: No Qualifiers: Hypertension type: unspecified Qualified Code(s): I10 - Essential (primary ) hypertension (3) Atrial fibrillation SNOMED Code(s): 54556067 ICD Code: I48.91 - UNSPECIFIED ATRIAL FIBRILLATION Status: Chronic Priority: Medium Current Visit: No Qualifiers: Atrial fibrillation type: chronic Qualified Code(s): I48.2 - Chronic atrial fibrillation (4) BPH (benign prostatic hyperplasia) SNOMED Code(s): 348184243 ICD Code: N40.0 - BENIGN PROSTATIC HYPERPLASIA WITHOUT LOWER URINRY TRACT SYMP Status: Chronic Priority: Low Current Visit: No Qualifiers: Lower urinary tract symptom presence: unspecified whether lower urinary tract symptoms present Qualified Code(s): N40.0 - Benign prostatic hyperplasia without lower urinary tract symptoms (5) CAD (coronary artery disease) SNOMED Code(s): 42374549 ICD Code: I25.10 - ATHSCL HEART DISEASE OF [place] CORONARY ARTERY W/O ANG PCTRS Status: Chronic Priority: Low Current Visit: No Qualifiers: Coronary Disease-Associated Artery/Lesion type: unspecified vessel or lesion type [place] vs. 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 Hospital Course: Assessment/Plan: Acute: Mild CHF - Obvious signs of peripheral edema, improving - Pro BNP 1189-->857 (best it has ever been recorded here) - Heart Failure protocol; diuretics, Is/Os, daily weights, salt and fluid restrictions -> Resume home lasix - Last echo (06/25/17) - LVEF 60-65% -Normal LV systolic function -Right ventricular size is mildly enlarged -Moderate aortic valve stenosis -At least moderate mitral valve regurg -Right ventricular systolic pressure is moderately elevated -Inferior vena cava is dilated with respiratory size variation greater than 50% -No regional wall motion abnormalities -Mild biatrial dilation -Atrial fibrillation -No significant change from 12/11/16. DM2 with Hyperglycemia - BS 128 on admission - Accu-check and ISS - ADA diet - Last A1C 9.6 in 04/25/2017; repeat A1C check 5.7! Relative Hypotension - stable - His pressures on the floor were not in the hypotensive range - May need to hold BP meds - Monitor per unit protocol Right sided upper extremity edema - Has been present in past - D-Dimer very minimally elevated - Venous ultrasound of extremity negative Hypomagnesemia -Magnesium 1.7 -Supplement Anemia -Longstanding history with multiple prior work-ups -Has received blood many times in the past -Hgb 10.5-->9.5-->8.8 -Will infuse one unit prior to discharge with lasix -Defer to PCP for further management Chronic: Impaired Vision Atrial Fibrillation, HR Controlled, on eliquis CAD HLD HTN Aortic Stenosis COPD AGNES GERD Hemorrhoids BPH Renal Stones Back Pain OS/DJD TIA RODRIGO Depression Obesity with BMI of 30+ Plan: He has improved greatly Home meds as ordered Routine AM Labs Fall Precautions DVT PPx: Lovenox SubQ for now--> Stop lovenox, resume home elequis PT/OT consult SW/CM for d/c planning Code status: DNR/DNI; PCP: Dr. Turner Overall Brian did quite well. His A1C is very good. He was more active during this stay than his usual, although today he is quite tired. His Hgb has slowly trended downward and he will be given one unit today prior to discharge. His BNP was the best it has ever been recorded. He continued to have right extremity edema and nursing applied TORIBIO bandages for compression. Otherwise he is doing quite well. He will be discharged back to his home SNF. He should follow-up with his PCP in 7-10 days after discharge. - Patient Instructions Diet: Low Sodium Fluid Restriction: 2000 mL Activity: As Tolerated Driving: Do Not Drive Showering/Bathing: May Shower Notify Provider of: Fever, Increased Pain, Nausea and/or Vomiting (worsening swelling or SOB ) - Discharge Plan Home Medications: Home Meds Albuterol Sulfate [Proair Respiclick] 2 puff INH TID 04/13/15 [History] DULoxetine [Cymbalta] 60 mg PO DAILY 04/13/15 [History] Docusate Sodium [Colace] 200 mg PO BID 04/13/15 [History] Ferrous Sulfate 324 mg PO DAILY 04/13/15 [History] Propylene Glycol/Peg 400 [Systane 0.3-0.4% Eye Drops] 1 drop EYEBOTH BID PRN [History] Tamsulosin [Flomax] 0.4 mg PO 1900 09/08/15 [History] Acetaminophen 650 mg PO Q6H PRN 11/05/16 [History] Gabapentin [Neurontin] 300 mg PO BID 12/08/16 [History] Polyethylene Glycol 3350 [MiraLAX] 17 gm PO DAILY 12/08/16 [History] traMADol [Ultram] 100 mg PO TID 12/08/16 [History] Calcium Carbonate [Tums] 1 tab PO DAILY 12/09/16 [History] Omeprazole 20 mg PO BIDAC #60 cap.cr 12/12/16 [Rx] Donepezil HCl [Aricept] 10 mg PO BEDTIME 04/23/17 [History] Furosemide [Lasix] 40 mg PO DAILY 04/23/17 [History] Menthol [Biofreeze] 1 applic TOP ASDIRECTED PRN 04/23/17 [History] Menthol [Biofreeze] 1 applic TOP TID 04/23/17 [History] Orajel 1 applic BUCCAL TID PRN 04/23/17 [History] Sennosides [Senna] 2 tab PO DAILY 04/23/17 [History] Vitamin E 400 unit PO DAILY 04/23/17 [History] Diltiazem IR [Cardizem] 60 mg PO Q8H #60 tablet 04/30/17 [Rx] Metoprolol Tartrate [Lopressor] 50 mg PO Q12HR #60 tablet 04/30/17 [Rx] metFORMIN [Glucophage] 250 mg PO BIDMEALS #60 tablet 04/30/17 [Rx] Albuterol Sulfate 1 dose INH Q8H PRN 06/23/17 [History] risperiDONE [RisperiDAL] 0.25 mg PO BEDTIME 06/23/17 [History] Apixaban [Eliquis] 2.5 mg PO BID 08/03/17 [History] Bisacodyl [Dulcolax] 10 mg PO DAILY 08/03/17 [History] Insulin Lispro [Humalog Kwikpen U-100] 1 dose SQ TIDMEALS 08/03/17 [History] Insulin Lispro [Humalog Kwikpen U-100] 10 unit SQ BID 08/03/17 [History] Insulin Lispro [Humalog Kwikpen U-100] 12 unit SQ ACLUNCH 08/03/17 [History] L. Acidophilus/Pectin, [place] [Acidophilus Probiotic] 175 mg PO DAILY 08/03/17 [ History] Magnesium Oxide 400 mg PO DAILY 08/03/17 [History] Polyvinyl Alcohol [LiquiTears 1.4% Ophth Soln] 2 drop EYEBOTH BID 08/03/17 [ History] Sacubitril/Valsartan [Entresto 24 mg-26 mg Tablet] 1 tab PO DAILY 08/03/17 [ History] Patient Handouts: Heart Failure, [id number] Referrals: Juma Turner MD [Primary Care Provider] - - Discharge Summary/Plan Comment DC Time >30 min.: Yes (40 minutes ) - General Info Date of Service: 08/06/17 Admission Dx/Problem (Free Text: Admission Diagnosis/Problem Admission Diagnosis/Problem Congestive heart failure Subjective Update: In to see Brian today. He has been sleeping most of the day. He has no complaints other than that he is tired. He had a really good day yesterday and we quite active. His Hgb has slowly dropped during his stay and is 8.8 today. As stated before he is very well known to this service. Will transfuse one unit today. Otherwise he is doing very well. He will be discharged back to SNF today. Functional Status: Reports: Pain Controlled, Tolerating Diet, Urinating. Denies : Ambulating, New Symptoms - Review of Systems General: Reports: Fatigue, Malaise. Denies: Fever, Weakness HEENT: Reports: No Symptoms. Denies: Ear Pain, Post Nasal Drip, Sinus Congestion Pulmonary: Reports: No Symptoms, Shortness of Breath (chronic ). Denies: Cough , Sputum, Wheezing Cardiovascular: Reports: No Symptoms, Dyspnea on Exertion (chronic ). Denies: Chest Pain, Palpitations Gastrointestinal: Reports: No Symptoms. Denies: Abdominal Pain, Constipation, Diarrhea, Nausea, Vomiting Genitourinary: Reports: No Symptoms Musculoskeletal: Reports: No Symptoms Skin: Reports: No Symptoms Neurological: Reports: Confusion (baseline ), Difficulty Walking (baseline), Gait Disturbance (baseline ) Psychiatric: Reports: No Symptoms - Patient Data Vitals - Most Recent: Last Vital Signs Temp 98.1 F 08/06/17 07:38 Pulse 87 08/06/17 07:38 Resp 18 08/06/17 07:38 BP 88/56 L 08/06/17 08:03 Pulse Ox 96 08/06/17 07:38 Weight - Most Recent: 202 lb 1.6 oz I&O - Last 24 hours: Intake & Output 08/05/17 08/06/17 08/06/17 22:59 06:59 14:59 Intake Total 520 400 Balance 520 400 Lab Results - Last 24 hrs: Laboratory Results - last 24 hr 08/05/17 08/05/17 08/05/17 Range/Units 06:06 11:28 17:33 WBC (4.23-9.07) K/mm3 RBC (4.63-6.08) M/mm3 Hgb (13.7-17.5) gm/L Hct (40.1-51.0) % MCV (79.0-92.2) fl MCH (25.7-32.2) pg MCHC (32.2-35.5) g/dl RDW Std Deviation (35.1-43.9) fL Plt Count (163-337) K/mm3 MPV (9.4-12.3) fl Neut % (Auto) (34.0-67.9) % Lymph % (Auto) (21.8-53.1) % [place] % (Auto) (5.3-12.2) % Eos % (Auto) (0.8-7.0) Baso % (Auto) (0.1-1.2) % Neut # (Auto) (1.78-5.38) K/mm3 Lymph # (Auto) (1.32-3.57) K/mm3 [place] # (Auto) (0.30-0.82) K/mm3 Eos # (Auto) (0.04-0.54) K/mm3 Baso # (Auto) (0.01-0.08) K/mm3 D-Dimer, Quantitative 0.81 H (0.19-0.50) mg/L Sodium (136-145) mEq/L Potassium (3.5-5.1) mEq/L Chloride (98-107) mEq/L Carbon Dioxide (21-32) mEq/L Anion Gap (5-15) BUN (7-18) mg/dL Creatinine (0.7-1.3) mg/dL Est Cr Clr Drug Dosing mL/min Estimated GFR (MDRD) (>60) mL/min BUN/Creatinine Ratio (14-18) Glucose (83-115) mg/dL POC Glucose 188 H 166 H (83-110) mg/dL Calcium (8.5-10.1) mg/dL Magnesium (1.8-2.4) mg/dl 08/05/17 08/06/17 08/06/17 Range/Units 21:40 06:24 06:24 WBC 5.07 (4.23-9.07) K/mm3 RBC 2.76 L (4.63-6.08) M/mm3 Hgb 8.8 L (13.7-17.5) gm/L Hct 28.2 L (40.1-51.0) % MCV 102.2 H (79.0-92.2) fl MCH 31.9 (25.7-32.2) pg MCHC 31.2 L (32.2-35.5) g/dl RDW Std Deviation 71.3 H (35.1-43.9) fL Plt Count 151 L (163-337) K/mm3 MPV 10.8 (9.4-12.3) fl Neut % (Auto) 53.5 (34.0-67.9) % Lymph % (Auto) 32.5 (21.8-53.1) % [place] % (Auto) 11.4 (5.3-12.2) % Eos % (Auto) 2.2 (0.8-7.0) Baso % (Auto) 0.2 (0.1-1.2) % Neut # (Auto) 2.71 (1.78-5.38) K/mm3 Lymph # (Auto) 1.65 (1.32-3.57) K/mm3 [place] # (Auto) 0.58 (0.30-0.82) K/mm3 Eos # (Auto) 0.11 (0.04-0.54) K/mm3 Baso # (Auto) 0.01 (0.01-0.08) K/mm3 D-Dimer, Quantitative (0.19-0.50) mg/L Sodium 140 (136-145) mEq/L Potassium 4.3 (3.5-5.1) mEq/L Chloride 103 (98-107) mEq/L Carbon Dioxide 34 H (21-32) mEq/L Anion Gap 7.3 (5-15) BUN 16 (7-18) mg/dL Creatinine 0.9 (0.7-1.3) mg/dL Est Cr Clr Drug Dosing 58.06 mL/min Estimated GFR (MDRD) > 60 (>60) mL/min BUN/Creatinine Ratio 17.8 (14-18) Glucose 103 (83-115) mg/dL POC Glucose 238 H (83-110) mg/dL Calcium 8.7 (8.5-10.1) mg/dL Magnesium 1.7 L (1.8-2.4) mg/dl 08/06/17 08/06/17 Range/Units 06:44 10:54 WBC (4.23-9.07) K/mm3 RBC (4.63-6.08) M/mm3 Hgb (13.7-17.5) gm/L Hct (40.1-51.0) % MCV (79.0-92.2) fl MCH (25.7-32.2) pg MCHC (32.2-35.5) g/dl RDW Std Deviation (35.1-43.9) fL Plt Count (163-337) K/mm3 MPV (9.4-12.3) fl Neut % (Auto) (34.0-67.9) % Lymph % (Auto) (21.8-53.1) % [place] % (Auto) (5.3-12.2) % Eos % (Auto) (0.8-7.0) Baso % (Auto) (0.1-1.2) % Neut # (Auto) (1.78-5.38) K/mm3 Lymph # (Auto) (1.32-3.57) K/mm3 [place] # (Auto) (0.30-0.82) K/mm3 Eos # (Auto) (0.04-0.54) K/mm3 Baso # (Auto) (0.01-0.08) K/mm3 D-Dimer, Quantitative (0.19-0.50) mg/L Sodium (136-145) mEq/L Potassium (3.5-5.1) mEq/L Chloride (98-107) mEq/L Carbon Dioxide (21-32) mEq/L Anion Gap (5-15) BUN (7-18) mg/dL Creatinine (0.7-1.3) mg/dL Est Cr Clr Drug Dosing mL/min Estimated GFR (MDRD) (>60) mL/min BUN/Creatinine Ratio (14-18) Glucose (83-115) mg/dL POC Glucose 95 104 (83-110) mg/dL Calcium (8.5-10.1) mg/dL Magnesium (1.8-2.4) mg/dl PROSPER Results - Last 24 hrs: Microbiology 08/03/17 21:30 Aerobic Blood Culture - Preliminary Blood - Venous NO GROWTH AFTER 2 DAYS Anaerobic Blood Culture - Preliminary NO GROWTH AFTER 2 DAYS 08/03/17 21:18 Aerobic Blood Culture - Preliminary Blood - Venous - Lab Draw NO GROWTH AFTER 2 DAYS Anaerobic Blood Culture - Preliminary NO GROWTH AFTER 2 DAYS Med Orders - Current: Current Medications Acetaminophen (Tylenol) 650 mg PO Q4H PRN PRN Reason: Pain (Mild 1-3)/fever Last Admin: 08/04/17 11:16 Dose: 650 mg Hydrocodone Bitart/Acetaminophen (Ethel 325-5 Mg) 1 tab PO Q4H PRN PRN Reason: Pain (moderate 4-6) Albuterol/Ipratropium (Duoneb 3.0-0.5 Mg/3 Ml) 3 ml NEB Q4H PRN PRN Reason: Shortness Of Breath/wheezing Artificial Tears (Isopto Tears 0.5% Ophth Soln) 0 ml EYEBOTH BID [facility] Last Admin: 08/06/17 08:03 Dose: 1 drop Artificial Tears (Isopto Tears 0.5% Ophth Soln) 0 ml EYEBOTH BID PRN PRN Reason: Dry Eyes Bisacodyl (Dulcolax) 5 mg PO DAILY PRN PRN Reason: Constipation Bisacodyl (Dulcolax) 10 mg PO DAILY [facility] Last Admin: 08/06/17 08:01 Dose: 10 mg Calcium Carbonate/Glycine (Tums) 500 mg PO DAILY [facility] Last Admin: 08/06/17 08:01 Dose: 500 mg Dextrose/Water (Dextrose 50% In Water) 50 ml IVPUSH ASDIRECTED PRN PRN Reason: Hypoglycemia Diltiazem HCl (Cardizem) 60 mg PO Q8H [facility] Last Admin: 08/06/17 04:00 Dose: Not Given Docusate Sodium (Colace) 200 mg PO BID [facility] Last Admin: 08/06/17 08:00 Dose: 200 mg Donepezil HCl (Aricept) 10 mg PO BEDTIME [facility] Last Admin: 08/05/17 21:14 Dose: 10 mg Ferrous Sulfate (Ferrous Sulfate) 324 mg PO BEDTIME [facility] Last Admin: 08/05/17 21:09 Dose: 324 mg Furosemide (Lasix) 40 mg PO DAILY [facility] Last Admin: 08/06/17 08:01 Dose: 40 mg Gabapentin (Neurontin) 300 mg PO BID [facility] Last Admin: 08/06/17 08:01 Dose: 300 mg Hydralazine HCl (Apresoline) 10 mg IVPUSH Q4H PRN PRN Reason: Hypertension Hydromorphone HCl (Dilaudid) 0.25 mg IVPUSH Q2H PRN PRN Reason: Pain (severe 7-10) Promethazine HCl 6.25 mg/ (Sodium Chloride) 50.25 mls @ 100 mls/hr IV Q6H PRN PRN Reason: Nausea/Vomiting Insulin Aspart (Novolog) 0 unit SUBCUT QIDACANDBED [facility]; Protocol Last Admin: 08/06/17 07:56 Dose: Not Given Insulin Detemir (Levemir) 12 unit SUBCUT ACLUNCH [facility] Last Admin: 08/06/17 09:06 Dose: Not Given Lorazepam (Ativan) 2 mg IVPUSH Q4H PRN PRN Reason: Seizures Lorazepam (Ativan) 0.25 mg IV Q6H PRN PRN Reason: Anxiety Magnesium Oxide (Magnesium Oxide) 400 mg PO DAILY [facility] Last Admin: 08/06/17 08:01 Dose: 400 mg Metformin HCl (Glucophage) 250 mg PO BIDMEALS [facility] Last Admin: 08/06/17 07:57 Dose: Not Given Methyl Salicylate (Analgesic Floral) 0 gm TOP TID [facility] Last Admin: 08/06/17 07:59 Dose: 1 applic Methyl Salicylate (Analgesic [place]al) 0 gm TOP ASDIRECTED PRN PRN Reason: Pain Metoprolol Tartrate (Lopressor) 50 mg PO Q12HR [facility] Last Admin: 08/06/17 08:03 Dose: Not Given Metoprolol Tartrate (Lopressor) 5 mg IVPUSH Q4H PRN PRN Reason: Tachycardia Ondansetron HCl (Zofran) 4 mg IV Q6H PRN PRN Reason: Nausea/Vomiting Last Admin: 08/04/17 22:20 Dose: 4 mg Omeprazole 20 Mg 0 each PO BIDAC [facility] Last Admin: 08/06/17 07:56 Dose: 1 each Sacubitril/Valsartan [Entresto 24 Mg-26 Mg Tablet] 0 each PO DAILY [facility] Last Admin: 08/06/17 08:50 Dose: 1 each Apixaban 2.5 Mg 0 each PO BID [facility] Last Admin: 08/06/17 08:13 Dose: 1 each Duloxetine 60 Mg 0 each PO DAILY [facility] Last Admin: 08/06/17 08:05 Dose: 1 each Polyethylene Glycol (Miralax) 17 gm PO DAILY [facility] Last Admin: 08/06/17 08:00 Dose: 17 gm Polyethylene Glycol (Miralax) 17 gm PO DAILY PRN PRN Reason: Constipation Risperidone (Risperidal) 0.25 mg PO DAILY [facility] Last Admin: 08/06/17 08:01 Dose: 0.25 mg Saccharomyces Boulardii (Florastor) 250 mg PO DAILY [facility] Last Admin: 08/06/17 08:00 Dose: 250 mg Senna (Senna) 17.2 mg PO DAILY [facility] Last Admin: 08/06/17 08:00 Dose: 17.2 mg Senna/Docusate Sodium (Senna Plus) 1 tab PO BID PRN PRN Reason: Constipation Sodium Chloride (Saline Flush) 10 ml FLUSH ASDIRECTED PRN PRN Reason: Keep Vein Open Tamsulosin HCl (Flomax) 0.4 mg PO BEDTIME [facility] Last Admin: 08/05/17 21:13 Dose: 0.4 mg Temazepam (Restoril) 7.5 mg PO BEDTIME PRN PRN Reason: Sleep Tramadol HCl (Ultram) 100 mg PO TID [facility] Last Admin: 08/06/17 08:01 Dose: 100 mg Vitamin E (Vitamin E) 400 units PO DAILY [facility] Last Admin: 08/06/17 08:00 Dose: 400 units Discontinued Medications Docusate Sodium (Colace) 100 mg PO BID PRN PRN Reason: Constipation Last Admin: 08/04/17 21:41 Dose: 100 mg Enoxaparin Sodium (Lovenox) 40 mg SUBCUT DAILY [facility] Last Admin: 08/05/17 08:30 Dose: 40 mg Furosemide (Lasix) 40 mg IVPUSH NOW ONE Stop: 08/03/17 21:41 Last Admin: 08/03/17 21:46 Dose: 40 mg Furosemide (Lasix) 40 mg IVPUSH Q6HR [facility] Last Admin: 08/05/17 06:26 Dose: Not Given Magnesium Oxide (Magnesium Oxide) 400 mg PO ONETIME ONE Stop: 08/06/17 11:04 Magnesium Sulfate (Pharmacy To Dose - Magnesium Replacement) 0 dose .XX ASDIRECTED PRN PRN Reason: RX TO WATCH MAG LEVELS Potassium Chloride (Pharmacy To Dose - Potassium Replacement) 0 dose .XX ASDIRECTED PRN PRN Reason: RX TO WATCH K LEVELS - Exam Quality Assessment: Reports: Supplemental Oxygen, DVT Prophylaxis General: Reports: Alert, Oriented, Cooperative, No Acute Distress HEENT: Reports: Pupils Equal Neck: Reports: Supple, Trachea Midline, No JVD Lungs: Reports: Normal Respiratory Effort, Decreased Breath Sounds Cardiovascular: Reports: Irregular Rhythm, Murmurs GI/Abdominal Exam: Normal Bowel Sounds, Soft, Non-Tender, No Organomegaly, No Distention, No Abnormal Bruit, No Mass, Pelvis Stable (Male) Exam: Deferred Rectal (Males) Exam: Deferred Back Exam: Reports: Normal Inspection, Decreased Range of Motion Extremities: Normal Inspection, Non-Tender, Normal Capillary Refill, Pedal Edema (trace), Limited Range of Motion, Other (right extremity edema) Skin: Reports: Warm, Dry, Intact Neurological: Reports: No New Focal Deficit Psy/Mental Status: Reports: Alert, Normal Affect, Normal Mood
[2017-08-06] MEDS ORDERED: Sodium Chloride 0.9% 250 ML IV SCH (11:48)
[2017-08-06] MEDS ORDERED: Furosemide 20 MG/2 ML VIAL IVPUSH ONE (14:55)
[2017-08-06 16:36] VITALS: BP 113/71
[2017-08-07] MEDS ORDERED: Furosemide 20 MG/2 ML VIAL IVPUSH ONE (14:20)
== END 2017-08-06 15:24 ==
LOC: JD.ED 19:46 → JD.MS 08-04 03:01
PROVIDERS: ADMIT Internal Medicine; ATTEND Internal Medicine
DX: I11.0 Hypertensive heart disease with heart failure (principal); I50.9 Heart failure, unspecified; E11.65 Type 2 diabetes mellitus with hyperglycemia; I95.9 Hypotension, unspecified; I48.2 Chronic atrial fibrillation; I25.10 Atherosclerotic heart disease of native coronary artery without angina pectoris; E78.5 Hyperlipidemia, unspecified; I35.0 Nonrheumatic aortic (valve) stenosis; J44.9 Chronic obstructive pulmonary disease, unspecified; G47.33 Obstructive sleep apnea (adult) (pediatric); K21.9 Gastro-esophageal reflux disease without esophagitis; N40.0 Benign prostatic hyperplasia without lower urinary tract symptoms; M19.90 Unspecified osteoarthritis, unspecified site; D50.9 Iron deficiency anemia, unspecified; F32.9 Major depressive disorder, single episode, unspecified; E66.9 Obesity, unspecified; E83.42 Hypomagnesemia; I25.2 Old myocardial infarction; Z87.442 Personal history of urinary calculi; Z86.73 Personal history of transient ischemic attack (TIA), and cerebral infarction without residual deficits; Z68.30 Body mass index [BMI] 30.0-30.9, adult; Z66 Do not resuscitate; Z79.899 Other long term (current) drug therapy; Z79.4 Long term (current) use of insulin; Z90.49 Acquired absence of other specified parts of digestive tract; Z87.891 Personal history of nicotine dependence
CPT/HCPCS: 36415; 36430; 36600; 71045; 80048; 80053; 81001; 82803; 82962; 83036; 83605; 83735; 83880; 84484; 85025; 85379; 85610; 85730; 86850; 86900; 86901; 86922; 87040; 87641; 87804; 93005; 93971; 96372; 96374; 96375; 96376; 97110; 97161; 97165; 97530; 99285; A9270; G0378; J1650; J1815; J1940; J2405; J7040; P9016; 93010; 99217; 99220; 99225

== ENCOUNTER 2018-01-06 19:26 | Inpatient (IN) | payer MEDICARE, BC, MEDICAID, OTHER ==
[2018-01-06] MEDS ORDERED: Sodium Chloride 0.9% 10 ML Syringe FLUSH PRN (19:53)
--- NOTE | 2018-01-06 20:02 | EDM.PDOC ---
ED HPI GENERAL MEDICAL PROBLEM - General Chief Complaint: General Stated Complaint: [facility] Time Seen by Provider: 01/06/18 19:43 Source of Information: Reports: Patient, EMS, Long Term Records, RN Notes Reviewed - History of Present Illness INITIAL COMMENTS - FREE TEXT/NARRATIVE: 87-year-old male snf patient transferred here for evaluation of altered mental status. At this point it is not clear when this all started. On the transfer sheet he is noted to be very lethargic, cold and clammy skin and also EMS stated that he was hypoxic, O2 sats initially 75%. He was placed at 2 L nasal cannula. EMS stated that on their arrival he was droopy not responding and then suddenly he did wake up open his eyes, smile and "spoke clearly. Arrival to ED once again is very droopy, initially not open eyes or respond at all verbally and then when I did do a sternal rub he did open his eyes and answer a few simple questions. He does deny chest or abdominal pain. He denies headache. There's been no vomiting or diarrhea. He is diabetic. Blood sugar is reported to been 75. He was given some oral glucose. Brought it up to about 80 for EMS. Give one half amp D50 IV which brought his blood sugar up to about 180 prior to arrival. 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 CODE STATUS DNR. - Related Data Allergies Allergy/AdvReac Type Severity Reaction Status Date / Time No Known Allergies Allergy Verified 01/06/18 19:42 Home Meds: Home Meds Albuterol Sulfate [Proair Respiclick] 2 puff INH TID 04/13/15 [History] DULoxetine [Cymbalta] 60 mg PO DAILY 04/13/15 [History] Docusate Sodium [Colace] 200 mg PO BID 04/13/15 [History] Ferrous Sulfate 324 mg PO DAILY 04/13/15 [History] Propylene Glycol/Peg 400 [Systane 0.3-0.4% Eye Drops] 1 drop EYEBOTH BID PRN [History] Tamsulosin [Flomax] 0.4 mg PO 1900 09/08/15 [History] Acetaminophen 650 mg PO Q6H PRN 11/05/16 [History] Gabapentin [Neurontin] 300 mg PO BID 12/08/16 [History] Polyethylene Glycol 3350 [MiraLAX] 17 gm PO DAILY 12/08/16 [History] traMADol [Ultram] 100 mg PO TID 12/08/16 [History] Calcium Carbonate [Tums] 1 tab PO DAILY 12/09/16 [History] Omeprazole 20 mg PO BIDAC #60 cap.cr 12/12/16 [Rx] Donepezil HCl [Aricept] 10 mg PO BEDTIME 04/23/17 [History] Furosemide [Lasix] 40 mg PO DAILY 04/23/17 [History] Menthol [Biofreeze] 1 applic TOP ASDIRECTED PRN 04/23/17 [History] Menthol [Biofreeze] 1 applic TOP TID 04/23/17 [History] Orajel 1 applic BUCCAL TID PRN 04/23/17 [History] Sennosides [Senna] 2 tab PO DAILY 04/23/17 [History] Vitamin E 400 unit PO DAILY 04/23/17 [History] Diltiazem IR [Cardizem] 60 mg PO Q8H #60 tablet 04/30/17 [Rx] Metoprolol Tartrate [Lopressor] 50 mg PO Q12HR #60 tablet 04/30/17 [Rx] metFORMIN [Glucophage] 250 mg PO BIDMEALS #60 tablet 04/30/17 [Rx] Albuterol Sulfate 1 dose INH Q8H PRN 06/23/17 [History] risperiDONE [RisperiDAL] 0.25 mg PO BEDTIME 06/23/17 [History] Apixaban [Eliquis] 2.5 mg PO BID 08/03/17 [History] Bisacodyl [Dulcolax] 10 mg PO DAILY 08/03/17 [History] Insulin Lispro [Humalog Kwikpen U-100] 1 dose SQ TIDMEALS 08/03/17 [History] Insulin Lispro [Humalog Kwikpen U-100] 10 unit SQ BID 08/03/17 [History] Insulin Lispro [Humalog Kwikpen U-100] 12 unit SQ ACLUNCH 08/03/17 [History] L. Acidophilus/Pectin, [place] [Acidophilus Probiotic] 175 mg PO DAILY 08/03/17 [ History] Magnesium Oxide 400 mg PO DAILY 08/03/17 [History] Polyvinyl Alcohol [LiquiTears 1.4% Ophth Soln] 2 drop EYEBOTH BID 08/03/17 [ History] Sacubitril/Valsartan [Entresto 24 mg-26 mg Tablet] 1 tab PO DAILY 08/03/17 [ History] Past Medical History HEENT History: Reports: Impaired Vision Cardiovascular History: Reports: Afib (chronic), CAD, Hypertension, LA, Other ( See Below) (Aortic stenosis) Other Cardiovascular History: Nonrheumatic aortic valve disorder, atherosclerotic heart disease Respiratory History: Reports: COPD, Sleep Apnea (untreated) Gastrointestinal History: Reports: GERD, Hemorrhoids Genitourinary History: Reports: BPH, Renal Calculus Musculoskeletal History: Reports: Back Pain, Chronic, Osteoarthritis Neurological History: Reports: TIA Psychiatric History: Reports: Depression Endocrine/Metabolic History: Reports: Diabetes, Type II, Obesity/BMI 30+ Hematologic History: Reports: Anemia, Iron Deficiency Oncologic (Cancer) History: Reports: None Dermatologic History: Reports: Other (See Below) Other Dermatologic History: red groin folds calmoseptime applied - Infectious Disease History Infectious Disease History: Reports: Chicken Pox - Past Surgical History HEENT Surgical History: Reports: Cataract Surgery GI Surgical History: Reports: Appendectomy, Cholecystectomy, Colonoscopy Musculoskeletal Surgical History: Reports: ORIF (right femur) Social & Family History - Family History Family Medical History: Noncontributory Cardiac: Reports: LA Other Cardiac Family History: twin brother Hematologic: Reports: Anemia Oncologic: Reports: Hodgkin's Lymphoma, Leukemia, Lung - Caffeine Use Caffeine Use: Reports: Coffee Other Caffeine Use: diet soda - Living Situation & Occupation Living situation: Reports: , Extended Care Facility ([facility]) Occupation: Retired ED ROS GENERAL - Review of Systems Review Of Systems: See Below Constitutional: Denies: Fever, Chills HEENT: Denies: Throat Pain Respiratory: Denies: Shortness of Breath, Cough (There is no report of increased cough) Cardiovascular: Denies: Chest Pain GI/Abdominal: Denies: Abdominal Pain, Diarrhea, Vomiting Skin: Denies: Rash Neurological: Reports: Trouble Speaking (Slurred speech on arrival to ED), Weakness (Altered mental status generalized), Other ED EXAM, GENERAL - Physical Exam Exam: See Below General Appearance: Other (Very lethargic, unresponsive initially, then with sternal rub as stated he did wake up open his eyes and did answer some questions.) Eye Exam: Bilateral Eye: PERRL (Pupils moderately constricted bilateral but equal) Nose: Normal Inspection Throat/Mouth: Normal Inspection, Other Head: Atraumatic (Oral mucosa mildly dry). No: Facial Swelling Neck: Supple, Other Respiratory/Chest: No Respiratory Distress (No JVD), Lungs Clear. No: Rales, Rhonchi, Wheezing Cardiovascular: Regular Rate, Rhythm GI/Abdominal: Soft, Non-Tender. No: Guarding Back Exam: No: CVA Tenderness (L), CVA Tenderness (R) Extremities: No: Pedal Edema, Leg Pain, Increased Warmth, Redness Neurological: No Motor/Sensory Deficits (He did squeeze fingers bilateral forming after he did wake up), Slow to Respond, Other (No facial droop, slurred speech) Skin Exam: Warm, Dry, Normal Color EKG INTERPRETATION EKG Date: 01/06/18 Rhythm: A-Fib Rate (Beats/Min): 56 [place]: Normal P-Wave: Absent QRS: RBBB Course - Vital Signs Last Recorded V/S: Last Vital Signs Temp 97.4 F 01/06/18 19:30 Pulse 60 01/06/18 19:30 Resp 16 01/06/18 19:30 BP 94/63 01/06/18 19:30 Pulse Ox 75 L 01/06/18 19:30 - Orders/Labs/Meds Orders: Active Orders 24 hr Category Date Time Status EKG 12 Lead [EKG Documentation Completion] [RC] STAT Care 01/06/18 19:52 Active Peripheral IV Care [RC] . DIRECTED Care 01/06/18 19:53 Active Chest 1V Frontal [CR] Stat Exams 01/06/18 19:57 Taken Head wo Cont [CT] Stat Exams 01/06/18 19:53 Taken Potassium Chloride [KCl 10 MEQ in Water 100 ML] 10 meq Med 01/06/18 21:25 Active Premix Bag 1 bag IV ONETIME Sodium Chloride 0.9% [Normal Saline] 1,000 ml Med 01/06/18 20:00 Active IV ASDIRECTED Sodium Chloride 0.9% [Saline Flush] Med 01/06/18 19:53 Active 10 ml FLUSH ASDIRECTED PRN Peripheral IV Insertion Adult [OM.PC] Stat Oth 01/06/18 19:52 Ordered Medication Orders Sodium Chloride (Normal Saline) 1,000 mls @ 150 mls/hr IV ASDIRECTED MALA Last Admin: 01/06/18 20:03 Dose: 150 mls/hr Potassium Chloride 10 meq/ (Premix) 100 mls @ 100 mls/hr IV ONETIME ONE Stop: 01/06/18 22:24 Last Admin: 01/06/18 21:36 Dose: 100 mls/hr Sodium Chloride (Saline Flush) 10 ml FLUSH ASDIRECTED PRN PRN Reason: Keep Vein Open Last Admin: 01/06/18 20:03 Dose: 10 ml Labs: Laboratory Tests 01/06/18 01/06/18 01/06/18 Range/Units 19:31 20:15 20:15 WBC 6.01 (4.23-9.07) K/mm3 RBC 2.60 L (4.63-6.08) M/mm3 Hgb 9.0 L (13.7-17.5) gm/L Hct 27.1 L (40.1-51.0) % MCV 104.2 H (79.0-92.2) fl MCH 34.6 H (25.7-32.2) pg MCHC 33.2 (32.2-35.5) g/dl RDW Std Deviation 74.6 H (35.1-43.9) fL Plt Count 184 (163-337) K/mm3 MPV 10.7 (9.4-12.3) fl Neutrophils % (Manual) 54 (40-60) % Band Neutrophils % 11 H (0-10) % Lymphocytes % (Manual) 21 (20-40) % Atypical Lymphs % 0 % Monocytes % (Manual) 9 (2-10) % Eosinophils % (Manual) 3 (0.8-7.0) % Basophils % (Manual) 2 H (0.2-1.2) Nucleated RBCs 1.0 % Platelet Estimate Adequate Plt Morphology Comment Normal Poikilocytosis 1+ slight Basophilic Stippling 1+ slight Anisocytosis 1+ sligh Macrocytosis 1+ slight Target Cells 1+ slight Ovalocytes 1+ slight RBC Morph Comment Not Reportable Sodium (136-145) mEq/L Potassium (3.5-5.1) mEq/L Chloride (98-107) mEq/L Carbon Dioxide (21-32) mEq/L Anion Gap (5-15) BUN (7-18) mg/dL Creatinine (0.7-1.3) mg/dL Est Cr Clr Drug Dosing mL/min Estimated GFR (MDRD) (>60) mL/min BUN/Creatinine Ratio (14-18) Glucose (83-115) mg/dL POC Glucose 163 H (83-110) mg/dL Lactic Acid (0.4-2.0) mmol/L Calcium (8.5-10.1) mg/dL Total Bilirubin (0.2-1.0) mg/dL AST (15-37) U/L ALT (16-63) U/L Alkaline Phosphatase (46-116) U/L Troponin I (0.00-0.056) ng/mL C-Reactive Protein < 0.2 (<1.0) mg/dL NT-Pro-B Natriuret Pep (0-450) pg/mL Total Protein (6.4-8.2) g/dl Albumin (3.4-5.0) g/dl Globulin gm/dL Albumin/Globulin Ratio (1-2) 01/06/18 01/06/18 01/06/18 Range/Units 20:15 20:15 20:15 WBC (4.23-9.07) K/mm3 RBC (4.63-6.08) M/mm3 Hgb (13.7-17.5) gm/L Hct (40.1-51.0) % MCV (79.0-92.2) fl MCH (25.7-32.2) pg MCHC (32.2-35.5) g/dl RDW Std Deviation (35.1-43.9) fL Plt Count (163-337) K/mm3 MPV (9.4-12.3) fl Neutrophils % (Manual) (40-60) % Band Neutrophils % (0-10) % Lymphocytes % (Manual) (20-40) % Atypical Lymphs % % Monocytes % (Manual) (2-10) % Eosinophils % (Manual) (0.8-7.0) % Basophils % (Manual) (0.2-1.2) Nucleated RBCs % Platelet Estimate Plt Morphology Comment Poikilocytosis Basophilic Stippling Anisocytosis Macrocytosis Target Cells Ovalocytes RBC Morph Comment Sodium 139 (136-145) mEq/L Potassium 3.1 L (3.5-5.1) mEq/L Chloride 100 (98-107) mEq/L Carbon Dioxide 34 H (21-32) mEq/L Anion Gap 8.1 (5-15) BUN 35 H (7-18) mg/dL Creatinine 1.7 H (0.7-1.3) mg/dL Est Cr Clr Drug Dosing 27.13 mL/min Estimated GFR (MDRD) 38 (>60) mL/min BUN/Creatinine Ratio 20.6 H (14-18) Glucose 124 H (83-115) mg/dL POC Glucose (83-110) mg/dL Lactic Acid 1.7 (0.4-2.0) mmol/L Calcium 9.1 (8.5-10.1) mg/dL Total Bilirubin 1.4 H (0.2-1.0) mg/dL AST 14 L (15-37) U/L ALT 12 L (16-63) U/L Alkaline Phosphatase 78 (46-116) U/L Troponin I < 0.017 (0.00-0.056) ng/mL C-Reactive Protein (<1.0) mg/dL NT-Pro-B Natriuret Pep 2336 H (0-450) pg/mL Total Protein 6.9 (6.4-8.2) g/dl Albumin 3.8 (3.4-5.0) g/dl Globulin 3.1 gm/dL Albumin/Globulin Ratio 1.2 (1-2) Meds: Medications Generic Name Dose Route Start Last Admin Trade Name Freq PRN Reason Stop Dose Admin Sodium Chloride 1,000 mls @ 150 mls/hr 01/06/18 20:00 01/06/18 20:03 Normal Saline IV 150 mls/hr ASDIRECTED MALA Administration Potassium Chloride 10 meq/ 100 mls @ 100 mls/hr 01/06/18 21:25 01/06/18 21:36 Premix IV 01/06/18 22:24 100 mls/hr ONETIME ONE Administration Sodium Chloride 10 ml 01/06/18 19:53 01/06/18 20:03 Saline Flush FLUSH 10 ml ASDIRECTED PRN Administration Keep Vein Open Discontinued Medications Generic Name Dose Route Start Last Admin Trade Name [place] PRN Reason Stop Dose Admin Sodium Chloride 500 mls @ 999 mls/hr 01/06/18 21:25 Normal Saline IV 01/06/18 21:55 .BOLUS ONE Departure - Departure Time of Disposition: 21:37 Disposition: Admitted As Inpatient 67 Condition: Fair Clinical Impression: Renal insufficiency, Hypokalemia Altered mental status Qualifiers: Altered mental status type: unspecified Qualified Code(s): R41.82 - Altered mental status, unspecified - Discharge Information Referrals: Juma Turner MD [Primary Care Provider] - Forms: ED Department Discharge ED Communication - Discussed Case With (1) Discussed Case With (1): Admitting Provider (Dr Jalloh, decision to admit at about 22;00) - My Orders Last 24 Hours: My Active Orders 01/06/18 19:52 EKG 12 Lead [EKG Documentation Completion] [RC] STAT Peripheral IV Insertion Adult [OM.PC] Stat 01/06/18 19:53 Peripheral IV Care [RC] . DIRECTED Head wo Cont [CT] Stat Sodium Chloride 0.9% [Saline Flush] 10 ml FLUSH ASDIRECTED PRN 01/06/18 19:57 Chest 1V Frontal [CR] Stat 01/06/18 20:00 Sodium Chloride 0.9% [Normal Saline] 1,000 ml IV ASDIRECTED 01/06/18 21:25 Potassium Chloride [KCl 10 MEQ in Water 100 ML] 10 meq Premix Bag 1 bag IV ONETIME - Assessment/Plan Last 24 Hours: My Active Orders 01/06/18 19:52 EKG 12 Lead [EKG Documentation Completion] [RC] STAT Peripheral IV Insertion Adult [OM.PC] Stat 01/06/18 19:53 Peripheral IV Care [RC] . DIRECTED Head wo Cont [CT] Stat Sodium Chloride 0.9% [Saline Flush] 10 ml FLUSH ASDIRECTED PRN 01/06/18 19:57 Chest 1V Frontal [CR] Stat 01/06/18 20:00 Sodium Chloride 0.9% [Normal Saline] 1,000 ml IV ASDIRECTED 01/06/18 21:25 Potassium Chloride [KCl 10 MEQ in Water 100 ML] 10 meq Premix Bag 1 bag IV ONETIME
[2018-01-06] MEDS: Sodium Chloride 0.9% 1,000 ML IV SCH (20:03)
[2018-01-06] MEDS ORDERED: Potassium Chloride 10 MEQ in Premix Bag 1 BAG IV ONE (21:25)
[2018-01-06] MEDS ORDERED: Sodium Chloride 0.9% 500 ML IV ONE (21:25)
[2018-01-06] MEDS ORDERED: Acetaminophen 325 MG Tab PO PRN ×2 (23:05→23:12)
[2018-01-06] MEDS ORDERED: [UNRECOGNIZED DRUG - OTHER] BUCCAL PRN (23:05)
[2018-01-06] MEDS ORDERED: BENZOCAINE 20% BUCCAL PRN (23:05)
[2018-01-06] MEDS ORDERED: Albuterol 0.083% 2.5 MG/3 ML Neb Soln INH PRN (23:05)
[2018-01-06] MEDS ORDERED: LORazepam 2 MG/ML SDV IVPUSH PRN (23:11)
[2018-01-06] MEDS ORDERED: hydrALAZINE 20 MG/ML SDV IVPUSH PRN (23:11)
[2018-01-06] MEDS ORDERED: Metoprolol Tartrate 5 MG/5 ML SDV IVPUSH PRN (23:11)
[2018-01-06] MEDS ORDERED: Acetaminophen 650 MG Supp RECTAL PRN (23:12)
[2018-01-06] MEDS ORDERED: Acetaminophen/HYDROcodone 325-5 MG Tab PO PRN (23:12)
[2018-01-06] MEDS ORDERED: Albuterol/Ipratropium 3.0-0.5 MG/3 ML Neb Soln NEB PRN (23:12)
[2018-01-06] MEDS ORDERED: Ondansetron 4 MG/2 ML SDV IV PRN (23:12)
[2018-01-06] MEDS ORDERED: Promethazine 6.25 MG in Sodium Chloride 0.9% 50 ML IV PRN (23:12)
[2018-01-07] MEDS: Sodium Chloride 0.9% 1,000 ML IV SCH (00:36)
[2018-01-07] MEDS: Potassium Chloride 10 MEQ in Premix Bag 1 BAG IV SCH ×5 (00:36→05:41)
[2018-01-07] MEDS: Insulin Lispro 100 Unit/ML 3 ML KwikPen SUBCUT SCH ×8 (00:59→21:06)
[2018-01-07] MEDS ORDERED: 50% Dextrose in Water 50 ML Syringe IVPUSH PRN (01:58)
[2018-01-07] MEDS: Albuterol 6.7 GM Inhaler INH SCH ×3 (05:23→20:15)
[2018-01-07] MEDS ORDERED: Omeprazole 20 MG Cap.CR PO SCH (06:00)
[2018-01-07] MEDS ORDERED: Ferrous Sulfate 325 MG Tab PO SCH (09:00)
[2018-01-07] MEDS: Potassium Chloride 20 MEQ Tab.ER PO SCH ×2 (09:11→21:07)
[2018-01-07] MEDS: Apixaban 5 MG Tab PO SCH ×2 (09:11→21:09)
[2018-01-07] MEDS: Sennosides 8.6 MG Tab PO SCH ×2 (09:11→09:23)
[2018-01-07] MEDS: Metoprolol Tartrate 50 MG Tab PO SCH (09:12)
[2018-01-07] MEDS: Polyethylene Glycol 3350 Powder 17 GM Packet PO SCH (09:15)
[2018-01-07] MEDS: Calcium Carbonate 500 MG Tab.Chew PO SCH (09:15)
[2018-01-07] MEDS: Aspirin 81 MG Tab.EC PO SCH (09:15)
[2018-01-07] MEDS: Saccharomyces Boulardii (Probiotic) 250 MG Cap PO SCH (09:15)
[2018-01-07] MEDS: Magnesium Oxide 400 MG Tab PO SCH (09:15)
[2018-01-07] MEDS: Docusate Sodium 100 MG Cap PO SCH ×2 (09:15→21:07)
[2018-01-07] MEDS: Menthol/Methyl Salicylate 29 GM Tube TOP SCH ×3 (09:16→21:15)
[2018-01-07] MEDS: Polyvinyl Alcohol 1.4% Ophth Soln 15 ML Bottle EYEBOTH SCH ×2 (09:16→21:04)
--- NOTE | 2018-01-07 12:10 | PCM.HP ---
H&P History of Present Illness - General Date of Service: 01/07/18 Admit Problem/Dx: Admission Diagnosis/Problem Admission Diagnosis/Problem Altered mental status Source of Information: Old Records, RN Notes Reviewed History Limitations: Reports: Altered Mental Status - History of Present Illness Initial Comments - Free Text/Narative: This is an 87 yo elderly white male with past medical hx/o Impaired Vision, Atrial Fibrillation on Eliquis, CAD, HLD, HTN, , COPD, AGNES, GERD, BPH, Hemorrhoids, Back Pain, OA/DJD, Hx/o TIA, RODRIGO, Depression, Alzheimer's Disease and Obesity who comes in for evaluation of AMS. He was found very lethargic, cold, clammy and hypoxic with an O2 sat of 75%. He was also found with a glucose level of 75 but improved to 180 after he was given an Amp of D50. On presentation to ED, he was observed with a facial droop and responsive only to sternal rub. His initial work up in ED shows a CBC remarkable for RBC of 2.60 , Hgb of 9. Hct of 27.1, MCV of 104.2, MCH of 34.6, RDW of 74.6, Band Neutrophils of 11% and Basophils of 2%. His chemistry is significant for K of 3.1, CO2 of 34, BUN of 35, CR of 1.7, Glucose of 124, Total Bilirubin of 1.4, AST of 14, ALT of of 12, and proBNP of 2336. His CXR and Head CT scan showed no acute abnormal findings. Patient is being admitted for acute metal status changed likely from metabolic encephalopathy. He is DNR. - Related Data Allergies/Adverse Reactions: Allergies Allergy/AdvReac Type Severity Reaction Status Date / Time No Known Allergies Allergy Verified 01/06/18 19:42 Home Medications: Home Meds Albuterol Sulfate [Proair Respiclick] 2 puff INH TID 04/13/15 [History] DULoxetine [Cymbalta] 60 mg PO DAILY 04/13/15 [History] Docusate Sodium [Colace] 200 mg PO BID 04/13/15 [History] Ferrous Sulfate 324 mg PO DAILY 04/13/15 [History] Tamsulosin [Flomax] 0.4 mg PO 1900 09/08/15 [History] Acetaminophen 650 mg PO Q6H PRN 11/05/16 [History] Gabapentin [Neurontin] 300 mg PO BID 12/08/16 [History] Polyethylene Glycol 3350 [MiraLAX] 17 gm PO DAILY 12/08/16 [History] traMADol [Ultram] 100 mg PO TID 12/08/16 [History] Calcium Carbonate [Tums] 1 tab PO DAILY 12/09/16 [History] Omeprazole 20 mg PO BIDAC #60 cap.cr 12/12/16 [Rx] Donepezil HCl [Aricept] 10 mg PO BEDTIME 04/23/17 [History] Furosemide [Lasix] 40 mg PO BID 04/23/17 [History] Menthol [Biofreeze] 1 applic TOP TID 04/23/17 [History] Orajel 1 applic BUCCAL TID PRN 04/23/17 [History] Sennosides [Senna] 2 tab PO DAILY 04/23/17 [History] metFORMIN [Glucophage] 250 mg PO BIDMEALS #60 tablet 04/30/17 [Rx] Albuterol Sulfate 1 dose INH Q8H PRN 06/23/17 [History] risperiDONE [RisperiDAL] 0.5 mg PO BEDTIME 06/23/17 [History] Apixaban [Eliquis] 2.5 mg PO BID 08/03/17 [History] Insulin Lispro [Humalog Kwikpen U-100] 6 units SQ BID 08/03/17 [History] Insulin Lispro [Humalog Kwikpen U-100] 10 unit SQ 1200 08/03/17 [History] L. Acidophilus/Pectin, [place] [Acidophilus Probiotic] 175 mg PO DAILY 08/03/17 [ History] Magnesium Oxide 400 mg PO DAILY 08/03/17 [History] Polyvinyl Alcohol [LiquiTears 1.4% Ophth Soln] 2 drop EYEBOTH BID 08/03/17 [ History] Aspirin [Halfprin] 81 mg PO DAILY 01/06/18 [History] Lubiprostone [Amitiza] 24 mcg PO BID 01/06/18 [History] Potassium Chloride 20 meq PO BID 01/06/18 [History] Insulin Lispro [Humalog Kwikpen U-100] See Protocol SUBCUT TIDAC 01/07/18 [ History] Propylene Glycol/Peg 400 [Systane 0.3-0.4% Eye Drops] 1 drop EYEBOTH BID PRN [History] Metoprolol Succinate [Toprol XL 100mg] 100 mg PO DAILY #0 01/08/18 [Rx] metOLazone [Metolazone] 2.5 mg PO ASDIRECTED #0 01/08/18 [Rx] Past Medical History HEENT History: Reports: Impaired Vision, Other (See Below) Other HEENT History: dry eyes Cardiovascular History: Reports: Afib, CAD, Hypertension, [place], Other (See Below) Other Cardiovascular History: Nonrheumatic aortic valve disorder, atherosclerotic heart disease Respiratory History: Reports: COPD, Sleep Apnea, Other (See Below) Other Respiratory History: panlobular emphysema Gastrointestinal History: Reports: Chronic Constipation, GERD, Hemorrhoids Genitourinary History: Reports: BPH, Renal Calculus Musculoskeletal History: Reports: Back Pain, Chronic, Osteoarthritis Neurological History: Reports: Alzheimers Disease, Neuropathy, Diabetic, TIA Psychiatric History: Reports: Anxiety, Dementia, Depression Endocrine/Metabolic History: Reports: Diabetes, Type II, Obesity/BMI 30+ Hematologic History: Reports: Anemia, Iron Deficiency Oncologic (Cancer) History: Reports: None Dermatologic History: Reports: Other (See Below) Other Dermatologic History: red groin folds calmoseptime applied - Infectious Disease History Infectious Disease History: Reports: Chicken Pox, MRSA Other Infectious Disease History: 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 - Past Surgical History Head Surgeries/Procedures: Reports: None HEENT Surgical History: Reports: Cataract Surgery GI Surgical History: Reports: Appendectomy, Cholecystectomy, Colonoscopy Musculoskeletal Surgical History: Reports: ORIF Social & Family History - Family History Family Medical History: Noncontributory Cardiac: Reports: [place] Other Cardiac Family History: twin brother Hematologic: Reports: Anemia Oncologic: Reports: Hodgkin's Lymphoma, Leukemia, Lung - Tobacco Use Smoking Status *Q: Unknown Ever Smoked - Caffeine Use Caffeine Use: Reports: Other Other Caffeine Use: unknown - Recreational Drug Use Recreational Drug Use: No - Living Situation & Occupation Living situation: Reports: , Extended Care Facility ([facility]) Occupation: Retired H&P Review of Systems - Review of Systems: Review Of Systems: Unable To Obtain Review of Systems Comment:: He sedated and Lethargic Exam - Exam Exam: See Below - Vital Signs Vital Signs: Last Vital Signs Temp 36.1 C 01/07/18 08:09 Pulse 69 01/07/18 09:14 Resp 20 01/07/18 08:09 BP 112/52 L 01/07/18 09:14 Pulse Ox 99 01/07/18 09:14 Weight: 78.381 kg - Exam General: Sedated, Lethargic HEENT: Conjunctiva Clear, Pupils Equal, Pupils Reactive Neck: Supple, Trachea Midline Lungs: Normal Respiratory Effort, Decreased Breath Sounds Cardiovascular: Regular Rate, Regular Rhythm GI/Abdominal Exam: Normal Bowel Sounds, Soft, Non-Tender, No Organomegaly, No Distention, No Abnormal Bruit (Male) Exam: Deferred Rectal (Males) Exam: Deferred Back Exam: Other (deferred) Extremities: Normal Inspection, No Pedal Edema, Normal Capillary Refill Peripheral Pulses: 2+: Posterior Tibial (L), Posterior Tibial (R), Dorsalis Pedis (L), Dorsalis Pedis (R) Skin: Warm, Dry, Intact Neuro Extensive - Mental Status: Other (Sedated-lethargic; briefly opens eyes with manual stimulation but not verbal calls) Neuro Extensive - Motor, Sensory, Reflexes: Other (Not approriate due to AMS). No: CN II-XII Intact Psychiatric: Other (Altered) - Patient Data Lab Results Last 24 hrs: Laboratory Results - last 24 hr 01/06/18 01/06/18 01/06/18 Range/Units 19:31 20:15 20:15 WBC 6.01 (4.23-9.07) K/mm3 RBC 2.60 L (4.63-6.08) M/mm3 Hgb 9.0 L (13.7-17.5) gm/L Hct 27.1 L (40.1-51.0) % MCV 104.2 H (79.0-92.2) fl MCH 34.6 H (25.7-32.2) pg MCHC 33.2 (32.2-35.5) g/dl RDW Std Deviation 74.6 H (35.1-43.9) fL Plt Count 184 (163-337) K/mm3 MPV 10.7 (9.4-12.3) fl Neut % (Auto) (34.0-67.9) % Lymph % (Auto) (21.8-53.1) % [place] % (Auto) (5.3-12.2) % Eos % (Auto) (0.8-7.0) Baso % (Auto) (0.1-1.2) % Neut # (Auto) (1.78-5.38) K/mm3 Lymph # (Auto) (1.32-3.57) K/mm3 [place] # (Auto) (0.30-0.82) K/mm3 Eos # (Auto) (0.04-0.54) K/mm3 Baso # (Auto) (0.01-0.08) K/mm3 Neutrophils % (Manual) 54 (40-60) % Band Neutrophils % 11 H (0-10) % Lymphocytes % (Manual) 21 (20-40) % Atypical Lymphs % 0 % Monocytes % (Manual) 9 (2-10) % Eosinophils % (Manual) 3 (0.8-7.0) % Basophils % (Manual) 2 H (0.2-1.2) Nucleated RBCs 1.0 % Manual Slide Review Platelet Estimate Adequate Plt Morphology Comment Normal Poikilocytosis 1+ slight Basophilic Stippling 1+ slight Anisocytosis 1+ sligh Macrocytosis 1+ slight Target Cells 1+ slight Ovalocytes 1+ slight RBC Morph Comment Not Reportable Sodium (136-145) mEq/L Potassium (3.5-5.1) mEq/L Chloride (98-107) mEq/L Carbon Dioxide (21-32) mEq/L Anion Gap (5-15) BUN (7-18) mg/dL Creatinine (0.7-1.3) mg/dL Est Cr Clr Drug Dosing mL/min Estimated GFR (MDRD) (>60) mL/min BUN/Creatinine Ratio (14-18) Glucose (83-115) mg/dL POC Glucose 163 H (83-110) mg/dL Lactic Acid (0.4-2.0) mmol/L Calcium (8.5-10.1) mg/dL Total Bilirubin (0.2-1.0) mg/dL AST (15-37) U/L ALT (16-63) U/L Alkaline Phosphatase (46-116) U/L Troponin I (0.00-0.056) ng/mL C-Reactive Protein < 0.2 (<1.0) mg/dL NT-Pro-B Natriuret Pep (0-450) pg/mL Total Protein (6.4-8.2) g/dl Albumin (3.4-5.0) g/dl Globulin gm/dL Albumin/Globulin Ratio (1-2) MRSA (PCR) 01/06/18 01/06/18 01/06/18 Range/Units 20:15 20:15 20:15 WBC (4.23-9.07) K/mm3 RBC (4.63-6.08) M/mm3 Hgb (13.7-17.5) gm/L Hct (40.1-51.0) % MCV (79.0-92.2) fl MCH (25.7-32.2) pg MCHC (32.2-35.5) g/dl RDW Std Deviation (35.1-43.9) fL Plt Count (163-337) K/mm3 MPV (9.4-12.3) fl Neut % (Auto) (34.0-67.9) % Lymph % (Auto) (21.8-53.1) % [place] % (Auto) (5.3-12.2) % Eos % (Auto) (0.8-7.0) Baso % (Auto) (0.1-1.2) % Neut # (Auto) (1.78-5.38) K/mm3 Lymph # (Auto) (1.32-3.57) K/mm3 [place] # (Auto) (0.30-0.82) K/mm3 Eos # (Auto) (0.04-0.54) K/mm3 Baso # (Auto) (0.01-0.08) K/mm3 Neutrophils % (Manual) (40-60) % Band Neutrophils % (0-10) % Lymphocytes % (Manual) (20-40) % Atypical Lymphs % % Monocytes % (Manual) (2-10) % Eosinophils % (Manual) (0.8-7.0) % Basophils % (Manual) (0.2-1.2) Nucleated RBCs % Manual Slide Review Platelet Estimate Plt Morphology Comment Poikilocytosis Basophilic Stippling Anisocytosis Macrocytosis Target Cells Ovalocytes RBC Morph Comment Sodium 139 (136-145) mEq/L Potassium 3.1 L (3.5-5.1) mEq/L Chloride 100 (98-107) mEq/L Carbon Dioxide 34 H (21-32) mEq/L Anion Gap 8.1 (5-15) BUN 35 H (7-18) mg/dL Creatinine 1.7 H (0.7-1.3) mg/dL Est Cr Clr Drug Dosing 27.13 mL/min Estimated GFR (MDRD) 38 (>60) mL/min BUN/Creatinine Ratio 20.6 H (14-18) Glucose 124 H (83-115) mg/dL POC Glucose (83-110) mg/dL Lactic Acid 1.7 (0.4-2.0) mmol/L Calcium 9.1 (8.5-10.1) mg/dL Total Bilirubin 1.4 H (0.2-1.0) mg/dL AST 14 L (15-37) U/L ALT 12 L (16-63) U/L Alkaline Phosphatase 78 (46-116) U/L Troponin I < 0.017 (0.00-0.056) ng/mL C-Reactive Protein (<1.0) mg/dL NT-Pro-B Natriuret Pep 2336 H (0-450) pg/mL Total Protein 6.9 (6.4-8.2) g/dl Albumin 3.8 (3.4-5.0) g/dl Globulin 3.1 gm/dL Albumin/Globulin Ratio 1.2 (1-2) MRSA (PCR) 01/07/18 01/07/18 01/07/18 Range/Units 00:24 00:28 01:54 WBC (4.23-9.07) K/mm3 RBC (4.63-6.08) M/mm3 Hgb (13.7-17.5) gm/L Hct (40.1-51.0) % MCV (79.0-92.2) fl MCH (25.7-32.2) pg MCHC (32.2-35.5) g/dl RDW Std Deviation (35.1-43.9) fL Plt Count (163-337) K/mm3 MPV (9.4-12.3) fl Neut % (Auto) (34.0-67.9) % Lymph % (Auto) (21.8-53.1) % [place] % (Auto) (5.3-12.2) % Eos % (Auto) (0.8-7.0) Baso % (Auto) (0.1-1.2) % Neut # (Auto) (1.78-5.38) K/mm3 Lymph # (Auto) (1.32-3.57) K/mm3 [place] # (Auto) (0.30-0.82) K/mm3 Eos # (Auto) (0.04-0.54) K/mm3 Baso # (Auto) (0.01-0.08) K/mm3 Neutrophils % (Manual) (40-60) % Band Neutrophils % (0-10) % Lymphocytes % (Manual) (20-40) % Atypical Lymphs % % Monocytes % (Manual) (2-10) % Eosinophils % (Manual) (0.8-7.0) % Basophils % (Manual) (0.2-1.2) Nucleated RBCs % Manual Slide Review Platelet Estimate Plt Morphology Comment Poikilocytosis Basophilic Stippling Anisocytosis Macrocytosis Target Cells Ovalocytes RBC Morph Comment Sodium (136-145) mEq/L Potassium (3.5-5.1) mEq/L Chloride (98-107) mEq/L Carbon Dioxide (21-32) mEq/L Anion Gap (5-15) BUN (7-18) mg/dL Creatinine (0.7-1.3) mg/dL Est Cr Clr Drug Dosing mL/min Estimated GFR (MDRD) (>60) mL/min BUN/Creatinine Ratio (14-18) Glucose (83-115) mg/dL POC Glucose 124 H 79 L (83-110) mg/dL Lactic Acid (0.4-2.0) mmol/L Calcium (8.5-10.1) mg/dL Total Bilirubin (0.2-1.0) mg/dL AST (15-37) U/L ALT (16-63) U/L Alkaline Phosphatase (46-116) U/L Troponin I (0.00-0.056) ng/mL C-Reactive Protein (<1.0) mg/dL NT-Pro-B Natriuret Pep (0-450) pg/mL Total Protein (6.4-8.2) g/dl Albumin (3.4-5.0) g/dl Globulin gm/dL Albumin/Globulin Ratio (1-2) MRSA (PCR) Negative 01/07/18 01/07/18 01/07/18 Range/Units 02:32 04:16 06:00 WBC 5.08 (4.23-9.07) K/mm3 RBC 2.52 L (4.63-6.08) M/mm3 Hgb 8.5 L (13.7-17.5) gm/L Hct 26.6 L (40.1-51.0) % MCV 105.6 H (79.0-92.2) fl MCH 33.7 H (25.7-32.2) pg MCHC 32.0 L (32.2-35.5) g/dl RDW Std Deviation 76.6 H (35.1-43.9) fL Plt Count 166 (163-337) K/mm3 MPV 11.0 (9.4-12.3) fl Neut % (Auto) 46.5 (34.0-67.9) % Lymph % (Auto) 38.4 (21.8-53.1) % [place] % (Auto) 10.2 (5.3-12.2) % Eos % (Auto) 4.1 (0.8-7.0) Baso % (Auto) 0.2 (0.1-1.2) % Neut # (Auto) 2.36 (1.78-5.38) K/mm3 Lymph # (Auto) 1.95 (1.32-3.57) K/mm3 [place] # (Auto) 0.52 (0.30-0.82) K/mm3 Eos # (Auto) 0.21 (0.04-0.54) K/mm3 Baso # (Auto) 0.01 (0.01-0.08) K/mm3 Neutrophils % (Manual) (40-60) % Band Neutrophils % (0-10) % Lymphocytes % (Manual) (20-40) % Atypical Lymphs % % Monocytes % (Manual) (2-10) % Eosinophils % (Manual) (0.8-7.0) % Basophils % (Manual) (0.2-1.2) Nucleated RBCs % Manual Slide Review Abnormal smear Platelet Estimate Plt Morphology Comment Poikilocytosis Basophilic Stippling Anisocytosis Macrocytosis Target Cells Ovalocytes RBC Morph Comment Sodium (136-145) mEq/L Potassium (3.5-5.1) mEq/L Chloride (98-107) mEq/L Carbon Dioxide (21-32) mEq/L Anion Gap (5-15) BUN (7-18) mg/dL Creatinine (0.7-1.3) mg/dL Est Cr Clr Drug Dosing mL/min Estimated GFR (MDRD) (>60) mL/min BUN/Creatinine Ratio (14-18) Glucose (83-115) mg/dL POC Glucose 139 H 101 (83-110) mg/dL Lactic Acid (0.4-2.0) mmol/L Calcium (8.5-10.1) mg/dL Total Bilirubin (0.2-1.0) mg/dL AST (15-37) U/L ALT (16-63) U/L Alkaline Phosphatase (46-116) U/L Troponin I (0.00-0.056) ng/mL C-Reactive Protein (<1.0) mg/dL NT-Pro-B Natriuret Pep (0-450) pg/mL Total Protein (6.4-8.2) g/dl Albumin (3.4-5.0) g/dl Globulin gm/dL Albumin/Globulin Ratio (1-2) MRSA (PCR) 01/07/18 01/07/18 01/07/18 Range/Units 06:00 06:07 08:10 WBC (4.23-9.07) K/mm3 RBC (4.63-6.08) M/mm3 Hgb (13.7-17.5) gm/L Hct (40.1-51.0) % MCV (79.0-92.2) fl MCH (25.7-32.2) pg MCHC (32.2-35.5) g/dl RDW Std Deviation (35.1-43.9) fL Plt Count (163-337) K/mm3 MPV (9.4-12.3) fl Neut % (Auto) (34.0-67.9) % Lymph % (Auto) (21.8-53.1) % [place] % (Auto) (5.3-12.2) % Eos % (Auto) (0.8-7.0) Baso % (Auto) (0.1-1.2) % Neut # (Auto) (1.78-5.38) K/mm3 Lymph # (Auto) (1.32-3.57) K/mm3 [place] # (Auto) (0.30-0.82) K/mm3 Eos # (Auto) (0.04-0.54) K/mm3 Baso # (Auto) (0.01-0.08) K/mm3 Neutrophils % (Manual) (40-60) % Band Neutrophils % (0-10) % Lymphocytes % (Manual) (20-40) % Atypical Lymphs % % Monocytes % (Manual) (2-10) % Eosinophils % (Manual) (0.8-7.0) % Basophils % (Manual) (0.2-1.2) Nucleated RBCs % Manual Slide Review Platelet Estimate Plt Morphology Comment Poikilocytosis Basophilic Stippling Anisocytosis Macrocytosis Target Cells Ovalocytes RBC Morph Comment Sodium 140 (136-145) mEq/L Potassium 4.1 (3.5-5.1) mEq/L Chloride 102 (98-107) mEq/L Carbon Dioxide 32 (21-32) mEq/L Anion Gap 10.1 (5-15) BUN 31 H (7-18) mg/dL Creatinine 1.5 H (0.7-1.3) mg/dL Est Cr Clr Drug Dosing 30.75 mL/min Estimated GFR (MDRD) 44 (>60) mL/min BUN/Creatinine Ratio 20.7 H (14-18) Glucose 94 (83-115) mg/dL POC Glucose 96 95 (83-110) mg/dL Lactic Acid (0.4-2.0) mmol/L Calcium 8.5 (8.5-10.1) mg/dL Total Bilirubin (0.2-1.0) mg/dL AST (15-37) U/L ALT (16-63) U/L Alkaline Phosphatase (46-116) U/L Troponin I (0.00-0.056) ng/mL C-Reactive Protein (<1.0) mg/dL NT-Pro-B Natriuret Pep (0-450) pg/mL Total Protein (6.4-8.2) g/dl Albumin (3.4-5.0) g/dl Globulin gm/dL Albumin/Globulin Ratio (1-2) MRSA (PCR) 01/07/18 Range/Units 10:22 WBC (4.23-9.07) K/mm3 RBC (4.63-6.08) M/mm3 Hgb (13.7-17.5) gm/L Hct (40.1-51.0) % MCV (79.0-92.2) fl MCH (25.7-32.2) pg MCHC (32.2-35.5) g/dl RDW Std Deviation (35.1-43.9) fL Plt Count (163-337) K/mm3 MPV (9.4-12.3) fl Neut % (Auto) (34.0-67.9) % Lymph % (Auto) (21.8-53.1) % [place] % (Auto) (5.3-12.2) % Eos % (Auto) (0.8-7.0) Baso % (Auto) (0.1-1.2) % Neut # (Auto) (1.78-5.38) K/mm3 Lymph # (Auto) (1.32-3.57) K/mm3 [place] # (Auto) (0.30-0.82) K/mm3 Eos # (Auto) (0.04-0.54) K/mm3 Baso # (Auto) (0.01-0.08) K/mm3 Neutrophils % (Manual) (40-60) % Band Neutrophils % (0-10) % Lymphocytes % (Manual) (20-40) % Atypical Lymphs % % Monocytes % (Manual) (2-10) % Eosinophils % (Manual) (0.8-7.0) % Basophils % (Manual) (0.2-1.2) Nucleated RBCs % Manual Slide Review Platelet Estimate Plt Morphology Comment Poikilocytosis Basophilic Stippling Anisocytosis Macrocytosis Target Cells Ovalocytes RBC Morph Comment Sodium (136-145) mEq/L Potassium (3.5-5.1) mEq/L Chloride (98-107) mEq/L Carbon Dioxide (21-32) mEq/L Anion Gap (5-15) BUN (7-18) mg/dL Creatinine (0.7-1.3) mg/dL Est Cr Clr Drug Dosing mL/min Estimated GFR (MDRD) (>60) mL/min BUN/Creatinine Ratio (14-18) Glucose (83-115) mg/dL POC Glucose 146 H (83-110) mg/dL Lactic Acid (0.4-2.0) mmol/L Calcium (8.5-10.1) mg/dL Total Bilirubin (0.2-1.0) mg/dL AST (15-37) U/L ALT (16-63) U/L Alkaline Phosphatase (46-116) U/L Troponin I (0.00-0.056) ng/mL C-Reactive Protein (<1.0) mg/dL NT-Pro-B Natriuret Pep (0-450) pg/mL Total Protein (6.4-8.2) g/dl Albumin (3.4-5.0) g/dl Globulin gm/dL Albumin/Globulin Ratio (1-2) MRSA (PCR) Result Diagrams: 01/07/18 06:00 01/08/18 06:15 Problem List Initiated/Reviewed/Updated: Yes Orders Last 24hrs: Active Orders 24 hr Category Date Time Status Patient Status [ADT] Routine ADT 01/06/18 22:38 Active Accu Check [Blood Glucose Check, Bedside] [RC] Q2HR Care 01/06/18 23:19 Active HOB [Head of Bed Elevation] [RC] Care 01/06/18 23:19 Active Height and Weight [RC] DAILY Care 01/06/18 23:12 Active Intake and Output [RC] QSHIFT Care 01/06/18 23:12 Active Oxygen Therapy [RC] PRN Care 01/06/18 23:12 Active RT Aerosol Therapy [RC] ASDIRECTED Care 01/06/18 23:15 Active Up With Assistance [RC] ASDIRECTED Care 01/06/18 23:12 Active Up ad Ivy [RC] ASDIRECTED Care 01/06/18 23:12 Active Urinary Catheter Assessment [RC] ASDIRECTED Care 01/07/18 01:19 Inactive VTE/DVT Education [RC] Care 01/06/18 23:12 Active Vital Signs [RC] Q4HR Care 01/06/18 23:12 Active Consult to Case Management/Insole Channeler [CONS] Cons 01/06/18 23:12 Active Routine Consult to Spiritual Care [CONS] Routine Cons 01/06/18 23:12 Active OT Evaluation and Treatment [CONS] Routine Cons 01/06/18 23:12 Active PT Evaluation and Treatment [CONS] Routine Cons 01/06/18 23:12 Active Respiratory Care Assess and Treatment [CONS] Routine Cons 01/06/18 23:12 Active ADA Diabetic [[place] [employer] Diet] [DIET Diet 01/07/18 Breakfast Active ] Nothing per Oral Now Diet [DIET] Diet 01/06/18 Dinner Active Chest 1V Frontal [CR] Stat Exams 01/06/18 19:57 Taken Head wo Cont [CT] Stat Exams 01/06/18 19:53 Taken BASIC METABOLIC PANEL,BMP [CHEM] AM Lab 01/08/18 05:11 Ordered CULTURE URINE [RM] Stat Lab 01/06/18 23:12 Received Acetaminophen [Tylenol] Med 01/06/18 23:12 Active 650 mg PO Q4H PRN Acetaminophen [Tylenol] Med 01/06/18 23:12 Active 650 mg RECTAL Q4H PRN Acetaminophen/HYDROcodone [[place] 325-5 MG] Med 01/06/18 23:12 Active 1 tab PO Q4H PRN Albuterol [Proventil HFA] Med 01/07/18 06:00 Active 0 gm INH TIDRT Albuterol [Proventil Neb Soln] Med 01/06/18 23:05 Active 2.5 mg INH Q8H PRN Albuterol/Ipratropium [DuoNeb 3.0-0.5 MG/3 ML] Med 01/06/18 23:12 Active 3 ml NEB Q4H PRN Apixaban [Eliquis] Med 01/07/18 09:00 Active 2.5 mg PO BID Aspirin [Halfprin] Med 01/07/18 09:00 Active 81 mg PO DAILY Calcium Carbonate [Tums] Med 01/07/18 09:00 Active 500 mg PO DAILY Dextrose 50% in Water Med 01/07/18 01:58 Active 50 ml IVPUSH ASDIRECTED PRN Docusate Sodium [Colace] Med 01/07/18 09:00 Active 200 mg PO BID Ferrous Sulfate Med 01/07/18 09:00 Active 324 mg PO DAILY Insulin Lispro [HumaLOG] Med 01/06/18 23:30 Active See Protocol SUBCUT Q2H LORazepam [Ativan] Med 01/06/18 23:11 Active 2 mg IVPUSH Q4H PRN Magnesium Oxide Med 01/07/18 09:00 Active 400 mg PO DAILY Magnesium Rep Pharmacy to Dose [Pharmacy to Dose - Med 01/06/18 23:15 Active Magnesium Replacement] 0 dose .XX ASDIRECTED PRN Menthol/Methyl Salicylate [Analgesic Bude] Med 01/07/18 09:00 Active 0 gm TOP TID Metoprolol Tartrate [Lopressor] Med 01/07/18 09:00 Active 100 mg PO DAILY Metoprolol Tartrate [Lopressor] Med 01/06/18 23:11 Active 5 mg IVPUSH Q4H PRN Ondansetron [Zofran] Med 01/06/18 23:12 Active 4 mg IV Q6H PRN Pantoprazole [ProTONIX] Med 01/07/18 16:00 Active 40 mg PO BIDAC Patient's Own Medication [Ptom] Med 01/06/18 23:05 Active 0 each BUCCAL TID PRN Polyethylene Glycol 3350 [MiraLAX] Med 01/07/18 09:00 Active 17 gm PO DAILY Polyvinyl Alcohol [LiquiTears 1.4% Ophth Soln] Med 01/07/18 09:00 Active 0 ml EYEBOTH BID Potassium Chloride [Klor-Con M20] Med 01/07/18 09:00 Active 20 meq PO BID Potassium Rep Pharmacy to Dose [Pharmacy to Dose - Med 01/06/18 23:15 Active Potassium Replacement] 0 dose .XX ASDIRECTED PRN Promethazine [Phenergan] 6.25 mg Med 01/06/18 23:12 Active Sodium Chloride 0.9% [Normal Saline] 50 ml IV Q6H Saccharomyces Boulardii [Florastor] Med 01/07/18 09:00 Active 250 mg PO DAILY Sennosides [Senna] Med 01/07/18 09:00 Active 17.2 mg PO DAILY Sodium Chloride 0.9% [Saline Flush] Med 01/06/18 19:53 Active 10 ml FLUSH ASDIRECTED PRN Tamsulosin [Flomax] Med 01/07/18 19:00 Active 0.4 mg PO 1900 hydrALAZINE [Apresoline] Med 01/06/18 23:11 Active 10 mg IVPUSH Q4H PRN Peripheral IV Insertion Adult [OM.PC] Stat Oth 01/06/18 19:52 Ordered Precautions [COMM] Routine Oth 01/06/18 23:19 Ordered Resuscitation Status Routine Resus Stat 01/06/18 23:12 Ordered Medication Orders Acetaminophen (Tylenol) 650 mg PO Q4H PRN PRN Reason: Pain (Mild 1-3)/fever Last Admin: 01/07/18 10:22 Dose: 650 mg Acetaminophen (Tylenol) 650 mg RECTAL Q4H PRN PRN Reason: Pain (mild 1-3) Hydrocodone Bitart/Acetaminophen ([place] 325-5 Mg) 1 tab PO Q4H PRN PRN Reason: Pain (moderate 4-6) Albuterol (Proventil Neb Soln) 2.5 mg INH Q8H PRN PRN Reason: Shortness of Breath Albuterol (Proventil Hfa) 0 gm INH TIDRT [facility] Last Admin: 01/07/18 05:23 Dose: 2 puff Albuterol/Ipratropium (Duoneb 3.0-0.5 Mg/3 Ml) 3 ml NEB Q4H PRN PRN Reason: Shortness Of Breath/wheezing Apixaban (Eliquis) 2.5 mg PO BID [facility] Last Admin: 01/07/18 09:11 Dose: 2.5 mg Artificial Tears (Liquitears 1.4% Ophth Soln) 0 ml EYEBOTH BID [facility] Last Admin: 01/07/18 09:16 Dose: Aspirin (Halfprin) 81 mg PO DAILY [facility] Last Admin: 01/07/18 09:15 Dose: 81 mg Calcium Carbonate/Glycine (Tums) 500 mg PO DAILY [facility] Last Admin: 01/07/18 09:15 Dose: Not Given Dextrose/Water (Dextrose 50% In Water) 50 ml IVPUSH ASDIRECTED PRN PRN Reason: Hypoglycemia Last Admin: 01/07/18 02:06 Dose: 25 ml Docusate Sodium (Colace) 200 mg PO BID [facility] Last Admin: 01/07/18 09:15 Dose: 200 mg Ferrous Sulfate (Ferrous Sulfate) 324 mg PO DAILY [facility] Last Admin: 01/07/18 09:15 Dose: 325 mg Hydralazine HCl (Apresoline) 10 mg IVPUSH Q4H PRN PRN Reason: Hypertension Promethazine HCl 6.25 mg/ (Sodium Chloride) 50.25 mls @ 100 mls/hr IV Q6H PRN PRN Reason: Nausea/Vomiting Insulin Human Lispro (Humalog) 0 unit SUBCUT Q2H [facility]; Protocol Last Admin: 01/07/18 07:36 Dose: Not Given Admin: 01/07/18 06:17 Dose: Not Given Admin: 01/07/18 03:48 Dose: Not Given Admin: 01/07/18 03:48 Dose: Not Given Admin: 01/07/18 00:59 Dose: Not Given Lorazepam (Ativan) 2 mg IVPUSH Q4H PRN PRN Reason: Seizures Magnesium Oxide (Magnesium Oxide) 400 mg PO DAILY [facility] Last Admin: 01/07/18 09:15 Dose: 400 mg Magnesium Sulfate (Pharmacy To Dose - Magnesium Replacement) 0 dose .XX ASDIRECTED PRN PRN Reason: RX TO WATCH MAG LEVELS Methyl Salicylate (Analgesic Bude) 0 gm TOP TID [facility] Last Admin: 01/07/18 09:16 Dose: Metoprolol Tartrate (Lopressor) 100 mg PO DAILY [facility] Last Admin: 01/07/18 09:12 Dose: 100 mg Metoprolol Tartrate (Lopressor) 5 mg IVPUSH Q4H PRN PRN Reason: Tachycardia Ondansetron HCl (Zofran) 4 mg IV Q6H PRN PRN Reason: Nausea/Vomiting Pantoprazole Sodium (Protonix) 40 mg PO BIDAC [facility] Orajel 20% Mouth Gel 0 each BUCCAL TID PRN PRN Reason: Pain Polyethylene Glycol (Miralax) 17 gm PO DAILY [facility] Last Admin: 01/07/18 09:15 Dose: 17 gm Potassium Chloride (Klor-Con M20) 20 meq PO BID [facility] Last Admin: 01/07/18 09:11 Dose: 20 meq Potassium Chloride (Pharmacy To Dose - Potassium Replacement) 0 dose .XX ASDIRECTED PRN PRN Reason: RX TO WATCH K LEVELS Saccharomyces Boulardii (Florastor) 250 mg PO DAILY [facility] Last Admin: 01/07/18 09:15 Dose: 250 mg Senna (Senna) 17.2 mg PO DAILY [facility] Last Admin: 01/07/18 09:23 Dose: Not Given Sodium Chloride (Saline Flush) 10 ml FLUSH ASDIRECTED PRN PRN Reason: Keep Vein Open Last Admin: 01/06/18 20:03 Dose: 10 ml Tamsulosin HCl (Flomax) 0.4 mg PO 1900 [facility] Assessment/Plan Comment:: Assessment/plan: Acute: AMS - Head CT scan showed no acute intra-cranial abnormality - Likely 2/2 Metabolic Encephalopathy - Hold All sedating and hypnotic medications - Aspiration/Fall precautions Hypoglycemia - Carries a hx/o DM2 on Insulin - He was found hypoglycemic with a glucose level of 75 - Last A1C 5.7 08/05/2017 (well controlled) - NPO and hold off Insulin; consider switching to oral agent since his diabetes is well controlled - Accu-heck Q2hrs until he is lucid Polypharmacy - Advised patient to go over all home medications with PCP on follow up appointment High Fall Risk - OA/DJD (Gait Instability), Insulin (Hypoglycemia), Eliquis (Bleeding), Psych/Sedating/Hypnotic Meds (AMS) Chronic: Impaired Vision Atrial Fibrillation CAD HTN COPD AGNES GERD BPH Hemorrhoids Back pain OA/DJD Hx/o TIA RODRIGO Depression Alzheimer's Disease and Obesity Plan: Admit to the floor with Tele Routine AM Labs Hold All home meds NPO for now Aspiration/fall precaution PT/OT consult SW/CM for d/c planning Code status: DNR
--- NOTE | 2018-01-07 15:00 | CR ---
Chest: Portable view of the chest was obtained. Comparison: Prior chest x-ray of 08/03/17. Heart size appears within normal limits for portable technique. Pulmonary vessels are mildly increased which appear chronic. No acute parenchymal densities are seen. Bony structures are osteopenic. Mild scoliosis is noted within the spine. Impression: 1. Incidental findings. Nothing acute is seen on portable chest x-ray. Diagnostic code #2
--- NOTE | 2018-01-07 15:00 | CT ---
Head CT Technique: Multiple axial sections through the brain were obtained. Intravenous contrast was not utilized. Comparison: Prior head CT study of 12/06/16 is available. Findings: Ventricles along with basal cisterns and sulci over the convexities are moderately prominent. Diminished density is noted within the periventricular and subcortical white matter as well as within the basal ganglia compatible with small vessel ischemic demyelination change. No other abnormal parenchymal densities are seen. No evidence of intracranial hemorrhage. No midline shift or mass effect is seen. Mild atherosclerotic calcification is seen within carotid siphon and within the vertebral vessels. Bone window settings were reviewed which show no acute calvarial abnormality. Opacification is seen within a portion of the inferior right mastoid sinus. Other visualized sinuses are clear. Atherosclerotic calcification is seen within the carotid siphon. Impression: 1. Opacification within the right mastoid sinus which is an interval change from prior head CT exam. This could represent retained secretions if patient has no symptoms of mastoiditis. 2. Senescent change as noted above which is stable from prior head CT study. 3. No acute intracranial abnormality is appreciated. Diagnostic code #3 I agree with preliminary report from [facility], finalized on 01/06/18, 10:17 PM Central Time
[2018-01-07] MEDS: Pantoprazole 40 MG Tab.CR PO SCH (15:45)
[2018-01-07] MEDS ORDERED: Tamsulosin 0.4 MG Cap.ER PO SCH (19:00)
[2018-01-07] MEDS ORDERED: risperiDONE 0.25 MG Tab PO SCH (21:00)
[2018-01-07] MEDS ORDERED: Donepezil 10 MG Tab PO SCH (21:00)
[2018-01-08] MEDS ORDERED: guaiFENesin/Dextromethorphan 100-10 MG/5 ML Soln 5 ML Cup PO ONE (01:21)
[2018-01-08] MEDS: Albuterol 6.7 GM Inhaler INH SCH (05:05)
[2018-01-08] MEDS: Pantoprazole 40 MG Tab.CR PO SCH (06:18)
[2018-01-08] MEDS: Insulin Lispro 100 Unit/ML 3 ML KwikPen SUBCUT SCH ×2 (06:18→12:02)
[2018-01-08] MEDS: Sennosides 8.6 MG Tab PO SCH (08:15)
[2018-01-08] MEDS: Apixaban 5 MG Tab PO SCH (08:15)
[2018-01-08] MEDS: Metoprolol Tartrate 50 MG Tab PO SCH (08:16)
[2018-01-08] MEDS: Potassium Chloride 20 MEQ Tab.ER PO SCH (08:16)
[2018-01-08] MEDS: Aspirin 81 MG Tab.EC PO SCH (08:18)
[2018-01-08] MEDS: Docusate Sodium 100 MG Cap PO SCH (08:18)
[2018-01-08] MEDS: Saccharomyces Boulardii (Probiotic) 250 MG Cap PO SCH (08:18)
[2018-01-08] MEDS: Polyvinyl Alcohol 1.4% Ophth Soln 15 ML Bottle EYEBOTH SCH (08:18)
[2018-01-08] MEDS: Polyethylene Glycol 3350 Powder 17 GM Packet PO SCH (08:18)
[2018-01-08] MEDS: Magnesium Oxide 400 MG Tab PO SCH (08:19)
[2018-01-08] MEDS: Calcium Carbonate 500 MG Tab.Chew PO SCH (08:19)
[2018-01-08] MEDS: Menthol/Methyl Salicylate 29 GM Tube TOP SCH (08:24)
[2018-01-08] MEDS ORDERED: Ferrous Sulfate 325 MG Tab PO SCH (09:00)
[2018-01-08] MEDS ORDERED: Metoprolol Succinate 50 MG Tab.ER PO SCH (09:00)
[2018-01-08 12:01] VITALS: BP 107/67
--- NOTE | 2018-01-08 12:42 | PCM.DCSUM1 ---
Discharge Summary - Hospital Course Brief History: This is an 87 yo elderly white male with past medical hx/o Impaired Vision, Atrial Fibrillation on Eliquis, CAD, HLD, HTN, , COPD, AGNES, GERD, BPH, Hemorrhoids,. Back Pain, OA/DJD, Hx/o TIA, RODRIGO, Depression, Alzheimer's Disease and Obesity who comes in for evaluation of AMS. He was found very lethargic, cold, clammy and hypoxic with an O2 sat of 75%. He was also found with a glucose level of 75 but improved to 180 after he was given one Amp of D50. On presentation to ED, he was observed with a facial droop, and responsive only to sternal rub. His initial work up in ED shows a CBC remarkable for RBC of 2.60, Hgb of 9. Hct of 27.1, MCV of 104.2, MCH of 34.6, RDW of 74.6, Band Neutrophils of 11% and Basophils of 2%. His chemistry is significant for K of 3.1, CO2 of 34, BUN of 35, CR of 1.7, Glucose of 124, Total Bilirubin of 1.4, AST of 14, ALT of of 12, and proBNP of 2336. His CXR and Head CT scan showed no acute abnormal findings. Patient is being admitted for acute metal status changed likely from metabolic encephalopathy. He is DNR. Diagnosis: Stroke: No Modified Josse Scale: No Symptoms at All Modified Duchesne Scale Score: 0 - Discharge Data Discharge Date: 01/08/18 Discharge Disposition: DC/Tfer to Other 70 Condition: Good - Discharge Diagnosis/Problem(s) (1) Hypoglycemia due to type 2 diabetes mellitus SNOMED Code(s): 703688073907467, 925903360408354 ICD Code: E11.649 - TYPE 2 DIABETES MELLITUS WITH HYPOGLYCEMIA WITHOUT COMA Status: Resolved (2) Altered mental status SNOMED Code(s): 621010699 ICD Code: R41.82 - ALTERED MENTAL STATUS, UNSPECIFIED Status: Resolved Qualifiers: Altered mental status type: transient alteration of awareness Qualified Code(s): R40.4 - Transient alteration of awareness (3) Polypharmacy SNOMED Code(s): 558595667 ICD Code: Z79.899 - OTHER INTERNATIONAL CONTROLLER (CURRENT) DRUG THERAPY Status: Chronic (4) At risk for falls due to medication SNOMED Code(s): 982274696, 916745844 ICD Code: Z91.81 - HISTORY OF FALLING Status: Chronic (5) Hypokalemia SNOMED Code(s): 21287414 ICD Code: E87.6 - HYPOKALEMIA Status: Resolved - Patient Summary/Data Operative Procedure(s) Performed: None Complications: None Consults: Consultations 01/06/18 23:12 Consult to Case Management/Customs Broker [CONS] Routine Consult to Spiritual Care [CONS] Routine OT Evaluation and Treatment [CONS] Routine PT Evaluation and Treatment [CONS] Routine Respiratory Care Assess and Treatment [CONS] Routine Labs Pending at D/C: None Recommended Follow-up Testing/Procedures: None Planned Operative Procedure(s) after DC: None Hospital Course: Patient was primarily admitted for AMS 2/2 symptomatic Hypoglycemia. All basic diagnostic work up were benign to includes a Head CT scan. He was provided supportive care and all his home medications were held overnight. Immediately, he improved on this regimen. His hospital course was uncomplicated and the rest of his chronic medical illness remained stable during his short hospital stay. Patient was advised to switch to oral diabetic regimen with well controlled glucose. He was advised to go over all his home meds with his PCP on follow appointment and ask what medications can be safely discontinued. The patient expressed understanding and in agreement with the plans as discussed above. All questions were answered. His daughter was called and updated regarding his diagnoses and discharge care plan. She was informed, her dad would benefit if he is on less home medications. Encouraged her daughter be with him on follow outpatient appointment. - Patient Instructions Diet: Heart Healthy Diet, Usual Diet as Tolerated, Diabetic Diet Activity: As Tolerated Driving: Do Not Drive Showering/Bathing: May Shower Notify Provider of: Fever, Increased Pain, Nausea and/or Vomiting Other/Special Instructions: - Please resume all home medications. - Continue routine home activities as tolerated. - Check vitals and follow parameters before taking your BP medications. Show log on follow up appointment with PCP. - Recommend you go over all home medications (review) with your PCP on follow up appointment. Call or follow up with your PCP for any questions or concerns after discharge. - Follow up with your PCP in 1 week. - Come back or seek immediate care should your symptom persists or gets worse - Discharge Plan *PRESCRIPTION DRUG MONITORING PROGRAM REVIEWED*: Not Applicable *COPY OF PRESCRIPTION DRUG MONITORING REPORT IN PATIENT SAAD: Not Applicable Home Medications: Home Meds Albuterol Sulfate [Proair Respiclick] 2 puff INH TID 04/13/15 [History] DULoxetine [Cymbalta] 60 mg PO DAILY 04/13/15 [History] Docusate Sodium [Colace] 200 mg PO BID 04/13/15 [History] Ferrous Sulfate 324 mg PO DAILY 04/13/15 [History] Tamsulosin [Flomax] 0.4 mg PO 1900 09/08/15 [History] Acetaminophen 650 mg PO Q6H PRN 11/05/16 [History] Gabapentin [Neurontin] 300 mg PO BID 12/08/16 [History] Polyethylene Glycol 3350 [MiraLAX] 17 gm PO DAILY 12/08/16 [History] traMADol [Ultram] 100 mg PO TID 12/08/16 [History] Calcium Carbonate [Tums] 1 tab PO DAILY 12/09/16 [History] Omeprazole 20 mg PO BIDAC #60 cap.cr 12/12/16 [Rx] Donepezil HCl [Aricept] 10 mg PO BEDTIME 04/23/17 [History] Furosemide [Lasix] 40 mg PO BID 04/23/17 [History] Menthol [Biofreeze] 1 applic TOP TID 04/23/17 [History] Orajel 1 applic BUCCAL TID PRN 04/23/17 [History] Sennosides [Senna] 2 tab PO DAILY 04/23/17 [History] metFORMIN [Glucophage] 250 mg PO BIDMEALS #60 tablet 04/30/17 [Rx] Albuterol Sulfate 1 dose INH Q8H PRN 06/23/17 [History] risperiDONE [RisperiDAL] 0.5 mg PO BEDTIME 06/23/17 [History] Apixaban [Eliquis] 2.5 mg PO BID 08/03/17 [History] Insulin Lispro [Humalog Kwikpen U-100] 6 units SQ BID 08/03/17 [History] Insulin Lispro [Humalog Kwikpen U-100] 10 unit SQ 1200 08/03/17 [History] L. Acidophilus/Pectin, [place] [Acidophilus Probiotic] 175 mg PO DAILY 08/03/17 [ History] Magnesium Oxide 400 mg PO DAILY 08/03/17 [History] Polyvinyl Alcohol [LiquiTears 1.4% Ophth Soln] 2 drop EYEBOTH BID 08/03/17 [ History] Aspirin [Halfprin] 81 mg PO DAILY 01/06/18 [History] Lubiprostone [Amitiza] 24 mcg PO BID 01/06/18 [History] Potassium Chloride 20 meq PO BID 01/06/18 [History] Insulin Lispro [Humalog Kwikpen U-100] See Protocol SUBCUT TIDAC 01/07/18 [ History] Propylene Glycol/Peg 400 [Systane 0.3-0.4% Eye Drops] 1 drop EYEBOTH BID PRN [History] Metoprolol Succinate [Toprol XL 100mg] 100 mg PO DAILY #0 01/08/18 [Rx] metOLazone [Metolazone] 2.5 mg PO ASDIRECTED #0 01/08/18 [Rx] Patient Handouts: Fall Prevention in the Home, [id number], Confusion, Hypokalemia, How to Avoid Diabetes Mellitus Problems Referrals: Juma Turner MD [Primary Care Provider] - - Discharge Summary/Plan Comment DC Time >30 min.: No Discharge Summary/Plan Comment: Discharge Home - General Info Date of Service: 01/08/18 Admission Dx/Problem (Free Text: Admission Diagnosis/Problem Admission Diagnosis/Problem Altered mental status Subjective Update: Follow Up Functional Status: Reports: Pain Controlled, Tolerating Diet, Urinating - Review of Systems General: Denies: Fever, Weakness, Fatigue, Malaise HEENT: Reports: No Symptoms Pulmonary: Denies: Shortness of Breath Cardiovascular: Denies: Chest Pain, Dyspnea on Exertion, Lightheadedness Gastrointestinal: Denies: Abdominal Pain, Nausea, Vomiting Genitourinary: Reports: No Symptoms Musculoskeletal: Reports: No Symptoms Skin: Denies: Cyanosis, Mottled, Pallor, Diaphoresis, Rash Neurological: Reports: Gait Disturbance. Denies: Confusion, Difficulty Walking , Weakness Psychiatric: Denies: Depression, Anxiety, Agitation, Hallucinations Systems Review Comment: No overnight or acute issues. He rested well last night. He has no complaints. He is alert, awake and reasonable. His glucose is well controlled. - Patient Data Vitals - Most Recent: Last Vital Signs Temp 36.7 C 01/08/18 11:56 Pulse 77 01/08/18 11:56 Resp 20 01/08/18 11:56 BP 107/67 01/08/18 11:56 Pulse Ox 94 L 01/08/18 11:56 Weight - Most Recent: 79.107 kg I&O - Last 24 hours: Intake & Output 01/07/18 01/08/18 01/08/18 22:59 06:59 14:59 Intake Total 540 630 Balance 540 630 Lab Results - Last 24 hrs: Laboratory Results - last 24 hr 01/07/18 01/07/18 01/07/18 Range/Units 12:39 17:21 21:02 Sodium (136-145) mEq/L Potassium (3.5-5.1) mEq/L Chloride (98-107) mEq/L Carbon Dioxide (21-32) mEq/L Anion Gap (5-15) BUN (7-18) mg/dL Creatinine (0.7-1.3) mg/dL Est Cr Clr Drug Dosing mL/min Estimated GFR (MDRD) (>60) mL/min BUN/Creatinine Ratio (-18) Glucose (83-115) mg/dL POC Glucose 148 H 127 H 144 H (83-110) mg/dL Calcium (8.5-10.1) mg/dL 01/08/18 01/08/18 01/08/18 Range/Units 06:15 06:16 11:53 Sodium 139 (136-145) mEq/L Potassium 4.2 (3.5-5.1) mEq/L Chloride 103 (98-107) mEq/L Carbon Dioxide 31 (21-32) mEq/L Anion Gap 9.2 (5-15) BUN 24 H (7-18) mg/dL Creatinine 1.4 H (0.7-1.3) mg/dL Est Cr Clr Drug Dosing 32.95 mL/min Estimated GFR (MDRD) 48 (>60) mL/min BUN/Creatinine Ratio 17.1 (14-18) Glucose 118 H (83-115) mg/dL POC Glucose 116 H 149 H (83-110) mg/dL Calcium 9.0 (8.5-10.1) mg/dL Med Orders - Current: Current Medications Acetaminophen (Tylenol) 650 mg PO Q4H PRN PRN Reason: Pain (Mild 1-3)/fever Last Admin: 01/07/18 10:22 Dose: 650 mg Acetaminophen (Tylenol) 650 mg RECTAL Q4H PRN PRN Reason: Pain (mild 1-3) Hydrocodone Bitart/Acetaminophen (Stacy 325-5 Mg) 1 tab PO Q4H PRN PRN Reason: Pain (moderate 4-6) Albuterol (Proventil Neb Soln) 2.5 mg INH Q8H PRN PRN Reason: Shortness of Breath Albuterol (Proventil Hfa) 0 gm INH TIDRT [facility] Last Admin: 01/08/18 05:05 Dose: 2 puff Albuterol/Ipratropium (Duoneb 3.0-0.5 Mg/3 Ml) 3 ml NEB Q4H PRN PRN Reason: Shortness Of Breath/wheezing Apixaban (Eliquis) 2.5 mg PO BID [facility] Last Admin: 01/08/18 08:15 Dose: 2.5 mg Artificial Tears (Liquitears 1.4% Ophth Soln) 0 ml EYEBOTH BID [facility] Last Admin: 01/08/18 08:18 Dose: 1 drop Aspirin (Halfprin) 81 mg PO DAILY [facility] Last Admin: 01/08/18 08:18 Dose: 81 mg Calcium Carbonate/Glycine (Tums) 500 mg PO DAILY [facility] Last Admin: 01/08/18 08:19 Dose: 500 mg Dextrose/Water (Dextrose 50% In Water) 50 ml IVPUSH ASDIRECTED PRN PRN Reason: Hypoglycemia Last Admin: 01/07/18 02:06 Dose: 25 ml Docusate Sodium (Colace) 200 mg PO BID [facility] Last Admin: 01/08/18 08:18 Dose: 200 mg Donepezil HCl (Aricept) 10 mg PO BEDTIME [facility] Last Admin: 01/07/18 21:12 Dose: 10 mg Ferrous Sulfate (Ferrous Sulfate) 325 mg PO DAILY [facility] Last Admin: 01/08/18 08:24 Dose: 325 mg Hydralazine HCl (Apresoline) 10 mg IVPUSH Q4H PRN PRN Reason: Hypertension Promethazine HCl 6.25 mg/ (Sodium Chloride) 50.25 mls @ 100 mls/hr IV Q6H PRN PRN Reason: Nausea/Vomiting Insulin Human Lispro (Humalog) 0 unit SUBCUT QIDACANDBED [facility]; Protocol Last Admin: 01/08/18 12:02 Dose: Not Given Lorazepam (Ativan) 2 mg IVPUSH Q4H PRN PRN Reason: Seizures Magnesium Oxide (Magnesium Oxide) 400 mg PO DAILY [facility] Last Admin: 01/08/18 08:19 Dose: 400 mg Magnesium Sulfate (Pharmacy To Dose - Magnesium Replacement) 0 dose .XX ASDIRECTED PRN PRN Reason: RX TO WATCH MAG LEVELS Methyl Salicylate (Analgesic [place]) 0 gm TOP TID [facility] Last Admin: 01/08/18 08:24 Dose: Not Given Metoprolol Succinate (Toprol Xl) 100 mg PO DAILY [facility] Last Admin: 01/08/18 08:16 Dose: 100 mg Metoprolol Tartrate (Lopressor) 5 mg IVPUSH Q4H PRN PRN Reason: Tachycardia Ondansetron HCl (Zofran) 4 mg IV Q6H PRN PRN Reason: Nausea/Vomiting Pantoprazole Sodium (Protonix) 40 mg PO BIDAC [facility] Last Admin: 01/08/18 06:18 Dose: 40 mg Orajel 20% Mouth Gel 0 each BUCCAL TID PRN PRN Reason: Pain Polyethylene Glycol (Miralax) 17 gm PO DAILY [facility] Last Admin: 01/08/18 08:18 Dose: 17 gm Potassium Chloride (Klor-Con M20) 20 meq PO BID [facility] Last Admin: 01/08/18 08:16 Dose: 20 meq Potassium Chloride (Pharmacy To Dose - Potassium Replacement) 0 dose .XX ASDIRECTED PRN PRN Reason: RX TO WATCH K LEVELS Risperidone (Risperidal) 0.5 mg PO BEDTIME [facility] Last Admin: 01/07/18 21:13 Dose: 0.5 mg Saccharomyces Boulardii (Florastor) 250 mg PO DAILY [facility] Last Admin: 01/08/18 08:18 Dose: 250 mg Senna (Senna) 17.2 mg PO DAILY [facility] Last Admin: 01/08/18 08:15 Dose: 17.2 mg Sodium Chloride (Saline Flush) 10 ml FLUSH ASDIRECTED PRN PRN Reason: Keep Vein Open Last Admin: 01/06/18 20:03 Dose: 10 ml Tamsulosin HCl (Flomax) 0.4 mg PO 1900 [facility] Last Admin: 01/07/18 19:05 Dose: 0.4 mg Discontinued Medications Acetaminophen (Tylenol) 650 mg PO Q6H PRN PRN Reason: Pain Ferrous Sulfate (Ferrous Sulfate) 324 mg PO DAILY [facility] Last Admin: 01/07/18 09:15 Dose: 325 mg Guaifenesin/Phenylephrine HCl (Robitussin Dm) 10 ml PO Q6H ONE Stop: 01/08/18 01:22 Last Admin: 01/08/18 01:54 Dose: 10 ml Sodium Chloride (Normal Saline) 1,000 mls @ 150 mls/hr IV ASDIRECTED [facility] Last Admin: 01/07/18 00:36 Dose: 150 mls/hr Potassium Chloride 10 meq/ (Premix) 100 mls @ 100 mls/hr IV ONETIME ONE Stop: 01/06/18 22:24 Last Admin: 01/06/18 21:36 Dose: 100 mls/hr Sodium Chloride (Normal Saline) 500 mls @ 999 mls/hr IV .BOLUS ONE Stop: 01/06/18 21:55 Last Admin: 01/07/18 01:00 Dose: Not Given Potassium Chloride 10 meq/ (Premix) 100 mls @ 100 mls/hr IV Q1H [facility] Stop: 01/07/18 04:59 Last Admin: 01/07/18 05:41 Dose: 100 mls/hr Insulin Human Lispro (Humalog) 0 unit SUBCUT Q2H [facility]; Protocol Last Admin: 01/07/18 13:51 Dose: Not Given Metoprolol Tartrate (Lopressor) 100 mg PO DAILY [facility] Last Admin: 01/07/18 09:12 Dose: 100 mg Omeprazole (Omeprazole) 20 mg PO BIDAC [facility] Last Admin: 01/07/18 07:37 Dose: Not Given - Exam General: Reports: Alert, Cooperative, No Acute Distress HEENT: Reports: Pupils Equal, Pupils Reactive, EOMI, Mucous Membr. Moist/[place] Neck: Reports: Supple, Trachea Midline Lungs: Reports: Clear to Auscultation, Normal Respiratory Effort Cardiovascular: Reports: Regular Rate, Regular Rhythm GI/Abdominal Exam: Normal Bowel Sounds, Soft, Non-Tender, No Organomegaly, No Distention, No Abnormal Bruit, No Mass (Male) Exam: Deferred Rectal (Males) Exam: Deferred Back Exam: Reports: Normal Inspection, Decreased Range of Motion Extremities: Normal Inspection, Normal Range of Motion, Non-Tender, No Pedal Edema, Normal Capillary Refill Skin: Reports: Warm, Dry, Intact Neurological: Reports: No New Focal Deficit Psy/Mental Status: Reports: Alert, Normal Affect, Normal Mood
== END 2018-01-08 14:02 | disposition other institution (70) | DRG 637 ==
LOC: JD.ED 19:26 → UNDOADMIN 22:38 → JD.MS 22:38
PROVIDERS: ADMIT Internal Medicine; ATTEND Internal Medicine
DX: R41.82 Altered mental status, unspecified (principal); E11.649 Type 2 diabetes mellitus with hypoglycemia without coma; G93.41 Metabolic encephalopathy; R09.02 Hypoxemia; E11.9 Type 2 diabetes mellitus without complications; G30.9 Alzheimer's disease, unspecified; F02.80 Dementia in other diseases classified elsewhere, unspecified severity, without behavioral disturbance, psychotic disturbance, mood disturbance, and anxiety; J44.9 Chronic obstructive pulmonary disease, unspecified; N28.9 Disorder of kidney and ureter, unspecified; E87.6 Hypokalemia; I10 Essential (primary) hypertension; I35.0 Nonrheumatic aortic (valve) stenosis; H54.7 Unspecified visual loss; I48.2 Chronic atrial fibrillation; I25.10 Atherosclerotic heart disease of native coronary artery without angina pectoris; G47.30 Sleep apnea, unspecified; K21.9 Gastro-esophageal reflux disease without esophagitis; N40.0 Benign prostatic hyperplasia without lower urinary tract symptoms; G89.29 Other chronic pain; M54.9 Dorsalgia, unspecified; M19.90 Unspecified osteoarthritis, unspecified site; F32.9 Major depressive disorder, single episode, unspecified; E66.9 Obesity, unspecified; J43.1 Panlobular emphysema; D50.9 Iron deficiency anemia, unspecified; Z66 Do not resuscitate; Z86.73 Personal history of transient ischemic attack (TIA), and cerebral infarction without residual deficits; Z87.442 Personal history of urinary calculi; R47.81 Slurred speech; R53.1 Weakness; Z79.899 Other long term (current) drug therapy; Z90.49 Acquired absence of other specified parts of digestive tract; Z79.4 Long term (current) use of insulin; Z79.01 Long term (current) use of anticoagulants; E78.5 Hyperlipidemia, unspecified; G47.33 Obstructive sleep apnea (adult) (pediatric); Z68.30 Body mass index [BMI] 30.0-30.9, adult; Z91.81 History of falling
CPT/HCPCS: 36415; 70450; 71045; 80053; 82962; 83605; 83880; 84484; 85007; 85027; 86140; 93005; 99285; J3480; J7040; J7050; 80048; 85025; 87086; 87088; 87186; 87641; 93010; 94640; 94664; 94760; 94761; 97110-GO; 97110-GP; 97161-GP; 97166-GO; 97530-GO; 97530-GP; A9270-GY; J7060

== ENCOUNTER 2018-06-19 12:34 | Emergency (ER) | payer MEDICARE, BC, MEDICAID ==
[2018-06-19 12:57] VITALS: BP 126/74
--- NOTE | 2018-06-19 12:58 | EDM.PDOC ---
ED HPI GENERAL MEDICAL PROBLEM - General Chief Complaint: Abdominal Pain Stated Complaint: ABDOMIANL PAIN Time Seen by Provider: 06/19/18 12:50 Source of Information: Reports: Patient History Limitations: Reports: No Limitations - History of Present Illness INITIAL COMMENTS - FREE TEXT/NARRATIVE: 87-year-old male presents to the ED from the CT suite. He was scheduled for CT of the abdomen and pelvis today with oral contrast. He states he drank the contrast came right back up. He reports that this is what's been happening for the last week every time he tries to eat he vomits right away. Seems to have signs and symptoms of gastric obstruction. Denies any blood in the food that he vomits up. States she's lost 10 pounds of weight in the last week. Just can't eat. Not aware of any fever chills per se although he does feel slightly warm to palpation. Pain if any is in the epigastrium and usually relieved by vomiting. Pain going through to his back from the epigastrium. States his bowel function is always been poor he needs help to have a bowel movement about every third day with an enema. ie. Chronic constipation issues. Onset: Gradual (States she's had gradually worsening ability to trip to try keep down food over the last 2 weeks. Really bad the last week nothing much is stay down. Lips and mouth are very dry. He states occasional liquids will stay down. He is still voiding 3 times daily.) Onset Date: 06/11/18 Duration: Day(s):, Getting Worse Location: Reports: Abdomen (Recurrent nausea and vomiting with epigastric abdominal pain relieved by vomiting.) Quality: Reports: Other (Upper abdominal pressure discomfort) Severity: Moderate Improves with: Reports: None Worsens with: Reports: Eating (States he bounces soon as he tries to eat some fluids will stay down. He could not tolerate oral contrast today for CT he vomited up immediately) Context: Denies: Activity, Exercise, Lifting, Sick Contact, Trauma, Other Associated Symptoms: Reports: Loss of Appetite, Malaise, Nausea/Vomiting, Weakness (Recurrent 70s tries to eat.). 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 ) Abdominal Pain Score (Numeric/FACES): 8 - Related Data Allergies Allergy/AdvReac Type Severity Reaction Status Date / Time No Known Allergies Allergy Verified 06/19/18 12:57 Home Meds: Home Meds Albuterol Sulfate [Proair Respiclick] 2 puff INH TID 04/13/15 [History] DULoxetine [Cymbalta] 60 mg PO DAILY 04/13/15 [History] Docusate Sodium [Colace] 200 mg PO BID 04/13/15 [History] Ferrous Sulfate 324 mg PO BEDTIME 04/13/15 [History] Acetaminophen 650 mg PO Q6H PRN 11/05/16 [History] Furosemide [Lasix] 20 mg PO DAILY PRN 04/23/17 [History] Menthol [Biofreeze] 1 applic TOP TID PRN 04/23/17 [History] Albuterol Sulfate 2.5 ml NEB Q8H PRN 06/23/17 [History] risperiDONE [RisperiDAL] 0.25 mg PO BEDTIME 06/23/17 [History] Insulin Lispro [Humalog Kwikpen U-100] 6 units SQ TID 08/03/17 [History] Magnesium Oxide 400 mg PO DAILY 08/03/17 [History] Polyvinyl Alcohol [LiquiTears 1.4% Ophth Soln] 2 drop EYEBOTH BID 08/03/17 [ History] Insulin Lispro [Humalog Kwikpen U-100] See Protocol SUBCUT TIDAC 01/07/18 [ History] Propylene Glycol/Peg 400 [Systane 0.3-0.4% Eye Drops] 1 drop EYEBOTH BID PRN [History] Furosemide 40 mg PO QPM 04/01/18 [History] Furosemide 60 mg PO QAM 04/01/18 [History] Menthol [Biofreeze] 1 applic TOP BID 04/01/18 [History] Omeprazole 40 mg PO ACBREAKFAST 04/01/18 [History] Phenyleph/Mineral Oil/Petrolat [Preparation H Ointment] 1 applic RECTAL BID PRN 04/01/18 [History] Potassium Chloride [Klor-Con M20] 20 meq PO BID 04/01/18 [History] Sennosides/Docusate Sodium [Senna Plus Tablet] 1 tab PO BID 04/01/18 [History] Tamsulosin HCl 0.4 mg PO BEDTIME 06/19/18 [History] Past Medical History HEENT History: Reports: Impaired Vision, Other (See Below) Other HEENT History: dry eyes Cardiovascular History: Reports: Afib (Chronically in atrial fibrillation. Currently not on anticoagulation.), CAD, Heart Failure, Hypertension, NV, Other (See Below) Other Cardiovascular History: Nonrheumatic aortic valve disorder, atherosclerotic heart disease Respiratory History: Reports: COPD (Does not require oxygen support.), Sleep Apnea, Other (See Below) Other Respiratory History: panlobular emphysema Gastrointestinal History: Reports: Chronic Constipation, GERD, Hemorrhoids Genitourinary History: Reports: BPH, Chronic Renal Insuffiency, Renal Calculus Musculoskeletal History: Reports: Back Pain, Chronic, Osteoarthritis Neurological History: Reports: Alzheimers Disease, Neuropathy, Diabetic, TIA Psychiatric History: Reports: Anxiety, Dementia, Depression Endocrine/Metabolic History: Reports: Diabetes, Type II (Controlled with metformin and insulin.) Hematologic History: Reports: Anemia, Iron Deficiency Other Hematologic History: myelodysplastic disease; chronic aquired pure red cell aplasia; hypomagnesemia Oncologic (Cancer) History: Reports: None Dermatologic History: Reports: Other (See Below) Other Dermatologic History: red groin folds calmoseptime applied - Infectious Disease History Infectious Disease History: Reports: MRSA Other Infectious Disease History: 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 - Past Surgical History Head Surgeries/Procedures: Reports: None HEENT Surgical History: Reports: Cataract Surgery GI Surgical History: Reports: Appendectomy, Cholecystectomy, Colonoscopy Musculoskeletal Surgical History: Reports: ORIF Social & Family History - Family History Family Medical History: Noncontributory Cardiac: Reports: NV Other Cardiac Family History: twin brother Hematologic: Reports: Anemia Oncologic: Reports: Hodgkin's Lymphoma, Leukemia, Lung - Caffeine Use Caffeine Use: Reports: Other Other Caffeine Use: unknown - Living Situation & Occupation Living situation: Reports: , Extended Care Facility ([facility] longterm) Occupation: Retired ED ROS GENERAL - Review of Systems Review Of Systems: See Below Constitutional: Reports: Malaise, Weakness, Fatigue, Weight Loss (10 pound weight loss in the last week or more.), Other (He states he is hungry but he just can't keep it down. Vomited up contrast this morning that he was given in preparation for CT scan almost immediately.). Denies: Fever, Chills HEENT: Reports: Glasses, Hearing Loss (Moderately hard of hearing.) Respiratory: Reports: Shortness of Breath. Denies: Cough, Sputum Cardiovascular: Reports: Dyspnea on Exertion, Palpitations (Chronic A. fib ). Denies: Chest Pain, Blood Pressure Problem, Claudication, Edema, Lightheadedness , Orthopnea Endocrine: Reports: Fatigue GI/Abdominal: Reports: Abdominal Pain (Has abdominal pain in the epigastrium that worsens with eating and isn't better after vomiting.), Constipation. Denies: Difficulty Swallowing, Distension, Flatus, Hematemesis : Reports: Frequency, Other (Is known BPH and nocturia 2 or 3) Musculoskeletal: Reports: Back Pain, Joint Pain (Knees hips and low back. Neck at times) Skin: Reports: Dryness Neurological: Reports: Other (Patient no longer walks. He has to be lifted into bed with all hardware left. Chair or bed bound.) Psychiatric: Reports: Depression Hematologic/Lymphatic: Reports: No Symptoms Immunologic: Reports: No Symptoms ED EXAM, GI/ABD - Physical Exam Exam: See Below Exam Limited By: No Limitations General Appearance: Alert, WD/WN, No Apparent Distress, Other (Does feel slightly warm to palpation. Is slightly hard of hearing.) Eyes: Bilateral: Normal Appearance Throat/Mouth: Other (Lips are dry and chapped. During this is showing a coated dry shriveled tongue.). No: Normal Inspection, Normal Lips, Normal Oropharynx Head: Atraumatic, Other Neck: Normal Inspection, Supple, Full Range of Motion, Limited Range of Motion, Tender Lateral (Mild tenderness bilateral neck due to arthritic changes.). No: Lymphadenopathy (L) Respiratory/Chest: Decreased Breath Sounds ( Decreased air into the lower 25% of the left lung compatible with COPD.), Rhonchi (Rhonchi and fluid bubbles on auscultation of the right lower lobe of his lung. Questionable diaphragmatic hernia with bowel up in his chest.). No: Wheezing Cardiovascular: No Edema (Wearing compression stockings bilaterally with no edema in either lower extremity.), No JVD, Irregularly Irregular (Monitor reveals a defibrillation at 75/m.), Other (No pulses are palpable in his feet. They're quite cool to touch.). No: Normal Peripheral Pulses, Regular Rate, Rhythm GI/Abdominal Exam: No Organomegaly, Distended (I'll signs are diffusely hyperactive. The abdomen is distended and slightly tympanitic to percussion throughout.), Abnormal Bowel Sounds, Other (Has had previous cholecystectomy.) Back Exam: Decreased Range of Motion. No: CVA Tenderness (L), CVA Tenderness (R ) Extremities: Non-Tender, Other (Evidence of osteophytic changes in both knees and both hips. Atrophy of the muscles of his lower extremities appreciated wearing compression stockings no dependent edema.) Neurological: Alert, Oriented, CN II-XII Intact, Normal Cognition Psychiatric: Normal Affect, Normal Mood Skin Exam: Warm, Dry, Intact, Normal Color, No Rash EKG INTERPRETATION EKG Date: 06/19/18 Time: 13:07 Rhythm: A-Fib (With rate of 75-90/m.) Rate (Beats/Min): 84 [place]: Normal P-Wave: Absent QRS: RBBB ST-T: Other (Diffuse repolarization abnormality noted V4 to V6 as well as in lead 1. Flattening lead 3 and aVF. Nonspecific findings) QT: Prolonged (UTC is mild to moderately prolonged.) EKG Interpretation Comments: Abnormal ECG Course - Vital Signs Last Recorded V/S: Last Vital Signs Temp 36.5 C 06/19/18 12:50 Pulse 73 06/19/18 12:50 Resp 18 06/19/18 12:50 BP 126/74 06/19/18 12:50 Pulse Ox 95 06/19/18 12:50 - Orders/Labs/Meds Orders: Active Orders 24 hr Category Date Time Status Bladder Scan [RC] ASDIRECTED Care 06/19/18 13:03 Active EKG Documentation Completion [RC] STAT Care 06/19/18 12:59 Active CULTURE BLOOD [BC] Stat Lab 06/19/18 13:16 Received CULTURE BLOOD [BC] Stat Lab 06/19/18 13:25 Received HELICOBACTER PYLORI AB IGG [CHEM] Stat Lab 06/19/18 16:55 Ordered Dextrose 5%-0.9% NaCl [Dextrose 5%-Normal Saline] 1,000 Med 06/19/18 13:00 Active ml IV ASDIRECTED Blood Culture x2 Reflex Set [OM.PC] Stat Oth 06/19/18 13:00 Ordered Medication Orders Dextrose/Sodium Chloride (Dextrose 5%-Normal Saline) 1,000 mls @ 150 mls/hr IV ASDIRECTED MALA Last Admin: 06/19/18 13:35 Dose: 150 mls/hr Labs: Laboratory Tests 06/19/18 06/19/18 06/19/18 Range/Units 13:13 13:16 13:16 WBC 5.83 (4.23-9.07) K/mm3 RBC 2.83 L (4.63-6.08) M/mm3 Hgb 9.1 L (13.7-17.5) gm/L Hct 26.1 L (40.1-51.0) % MCV 92.2 (79.0-92.2) fl MCH 32.2 (25.7-32.2) pg MCHC 34.9 (32.2-35.5) g/dl RDW Std Deviation 58.3 H (35.1-43.9) fL Plt Count 177 (163-337) K/mm3 MPV 11.2 (9.4-12.3) fl Neutrophils % (Manual) 41 (40-60) % Band Neutrophils % 2 (0-10) % Lymphocytes % (Manual) 54 H (20-40) % Atypical Lymphs % 0 % Monocytes % (Manual) 1 L (2-10) % Eosinophils % (Manual) 2 (0.8-7.0) % Basophils % (Manual) 0 L (0.2-1.2) Platelet Estimate Adequate Poikilocytosis 1+ slight Anisocytosis 1+ slight Ovalocytes 1+ slight Schistocytes Few RBC Morph Comment Not Reportable ESR (0-15) mm/hr PT 12.1 (9.5-12.1) SECONDS INR 1.11 Sodium (136-145) mEq/L Potassium (3.5-5.1) mEq/L Chloride (98-107) mEq/L Carbon Dioxide (21-32) mEq/L Anion Gap (5-15) BUN (7-18) mg/dL Creatinine (0.7-1.3) mg/dL Est Cr Clr Drug Dosing mL/min Estimated GFR (MDRD) (>60) mL/min BUN/Creatinine Ratio (14-18) Glucose (83-115) mg/dL Hemoglobin A1c (4.50-6.20) % Lactic Acid (0.4-2.0) mmol/L Calcium (8.5-10.1) mg/dL Magnesium (1.8-2.4) mg/dl Iron 164 (65-175) ug/dL TIBC 143 (100-400) ug/dL % Saturation 115 H (20-55) % Transferrin 114 L (202-364) mg/dL Ferritin 2077 H (26-388) ng/ml Total Bilirubin (0.2-1.0) mg/dL AST (15-37) U/L ALT (16-63) U/L Alkaline Phosphatase (46-116) U/L CK-MB (CK-2) (0-3.6) ng/ml Troponin I (0.00-0.056) ng/mL C-Reactive Protein (<1.0) mg/dL NT-Pro-B Natriuret Pep (0-450) pg/mL Total Protein (6.4-8.2) g/dl Albumin (3.4-5.0) g/dl Globulin gm/dL Albumin/Globulin Ratio (1-2) Vitamin B12 812 (193-986) pg/ml Folate 5.0 L (8.6-58.9) ng/mL TSH 3rd Generation (0.358-3.74) uIU/mL 06/19/18 06/19/18 06/19/18 Range/Units 13:16 13:16 13:16 WBC (4.23-9.07) K/mm3 RBC (4.63-6.08) M/mm3 Hgb (13.7-17.5) gm/L Hct (40.1-51.0) % MCV (79.0-92.2) fl MCH (25.7-32.2) pg MCHC (32.2-35.5) g/dl RDW Std Deviation (35.1-43.9) fL Plt Count (163-337) K/mm3 MPV (9.4-12.3) fl Neutrophils % (Manual) (40-60) % Band Neutrophils % (0-10) % Lymphocytes % (Manual) (20-40) % Atypical Lymphs % % Monocytes % (Manual) (2-10) % Eosinophils % (Manual) (0.8-7.0) % Basophils % (Manual) (0.2-1.2) Platelet Estimate Poikilocytosis Anisocytosis Ovalocytes Schistocytes RBC Morph Comment ESR 15 (0-15) mm/hr PT (9.5-12.1) SECONDS INR Sodium 140 (136-145) mEq/L Potassium 3.7 (3.5-5.1) mEq/L Chloride 100 (98-107) mEq/L Carbon Dioxide 27 (21-32) mEq/L Anion Gap 16.7 H (5-15) BUN 23 H (7-18) mg/dL Creatinine 1.8 H (0.7-1.3) mg/dL Est Cr Clr Drug Dosing 26.58 mL/min Estimated GFR (MDRD) 36 (>60) mL/min BUN/Creatinine Ratio 12.8 L (14-18) Glucose 151 H (83-115) mg/dL Hemoglobin A1c (4.50-6.20) % Lactic Acid (0.4-2.0) mmol/L Calcium 9.4 (8.5-10.1) mg/dL Magnesium 2.2 (1.8-2.4) mg/dl Iron (65-175) ug/dL TIBC (100-400) ug/dL % Saturation (20-55) % Transferrin (202-364) mg/dL Ferritin (26-388) ng/ml Total Bilirubin 1.4 H (0.2-1.0) mg/dL AST 12 L (15-37) U/L ALT 18 (16-63) U/L Alkaline Phosphatase 78 (46-116) U/L CK-MB (CK-2) 1.3 (0-3.6) ng/ml Troponin I < 0.017 (0.00-0.056) ng/mL C-Reactive Protein < 0.2 (<1.0) mg/dL NT-Pro-B Natriuret Pep 930 H (0-450) pg/mL Total Protein 7.2 (6.4-8.2) g/dl Albumin 4.2 (3.4-5.0) g/dl Globulin 3.0 gm/dL Albumin/Globulin Ratio 1.4 (1-2) Vitamin B12 (193-986) pg/ml Folate (8.6-58.9) ng/mL TSH 3rd Generation (0.358-3.74) uIU/mL 06/19/18 06/19/18 06/19/18 Range/Units 13:16 13:16 13:16 WBC (4.23-9.07) K/mm3 RBC (4.63-6.08) M/mm3 Hgb (13.7-17.5) gm/L Hct (40.1-51.0) % MCV (79.0-92.2) fl MCH (25.7-32.2) pg MCHC (32.2-35.5) g/dl RDW Std Deviation (35.1-43.9) fL Plt Count (163-337) K/mm3 MPV (9.4-12.3) fl Neutrophils % (Manual) (40-60) % Band Neutrophils % (0-10) % Lymphocytes % (Manual) (20-40) % Atypical Lymphs % % Monocytes % (Manual) (2-10) % Eosinophils % (Manual) (0.8-7.0) % Basophils % (Manual) (0.2-1.2) Platelet Estimate Poikilocytosis Anisocytosis Ovalocytes Schistocytes RBC Morph Comment ESR (0-15) mm/hr PT (9.5-12.1) SECONDS INR Sodium (136-145) mEq/L Potassium (3.5-5.1) mEq/L Chloride (98-107) mEq/L Carbon Dioxide (21-32) mEq/L Anion Gap (5-15) BUN (7-18) mg/dL Creatinine (0.7-1.3) mg/dL Est Cr Clr Drug Dosing mL/min Estimated GFR (MDRD) (>60) mL/min BUN/Creatinine Ratio (14-18) Glucose (83-115) mg/dL Hemoglobin A1c 6.50 H (4.50-6.20) % Lactic Acid 2.6 H (0.4-2.0) mmol/L Calcium (8.5-10.1) mg/dL Magnesium (1.8-2.4) mg/dl Iron (65-175) ug/dL TIBC (100-400) ug/dL % Saturation (20-55) % Transferrin (202-364) mg/dL Ferritin (26-388) ng/ml Total Bilirubin (0.2-1.0) mg/dL AST (15-37) U/L ALT (16-63) U/L Alkaline Phosphatase (46-116) U/L CK-MB (CK-2) (0-3.6) ng/ml Troponin I (0.00-0.056) ng/mL C-Reactive Protein (<1.0) mg/dL NT-Pro-B Natriuret Pep (0-450) pg/mL Total Protein (6.4-8.2) g/dl Albumin (3.4-5.0) g/dl Globulin gm/dL Albumin/Globulin Ratio (1-2) Vitamin B12 (193-986) pg/ml Folate (8.6-58.9) ng/mL TSH 3rd Generation 1.407 (0.358-3.74) uIU/mL Meds: Medications Generic Name Dose Route Start Last Admin Trade Name Freq PRN Reason Stop Dose Admin Dextrose/Sodium Chloride 1,000 mls @ 150 mls/hr 06/19/18 13:00 06/19/18 13:35 Dextrose 5%-Normal Saline IV 150 mls/hr ASDIRECTED MALA Administration Discontinued Medications Generic Name Dose Route Start Last Admin Trade Name Freq PRN Reason Stop Dose Admin Metoclopramide HCl 7.5 mg 06/19/18 13:35 06/19/18 13:42 Reglan IVPUSH 06/19/18 13:36 7.5 mg ONETIME ONE Administration - Radiology Interpretation Free Text/Narrative:: 87-year-old male presents to the ED for evaluation of recurrent vomiting. He's not been able to keep down much in terms of food or solids for over a week. He reports a 10 pound weight loss in the last week. A CT scan of the abdomen was ordered today by his primary care physician with oral contrast but he was unable to keep the contrast down. The CT was done at any rate with only a small amount of contrast evident in the stomach. The stomach wall appears very thickened. The liver spleen appear normal. Pancreas is mildly atrophic with no abnormality is identified. Diffuse atherosclerosis appreciated throughout the aorta particularly at the iliac vessels bilaterally. He also has significant coronary artery calcification identified. There is bowel interposed behind the liver in the right side which is likely responsible for the gurgling sounds are heard on respiration in that area. The diaphragm itself does not appear to be paralyzed or elevated. Left adrenal gland appears slightly bulbous but not greater than 2 cm. Kidneys are both very atrophic. 1.8 cm cyst in the lower pole of the left kidney. State is moderately enlarged with a few corpora amylacea present. No abdominal wall hernias identified. Plan chest x-ray will be done with an ECG and routine lab work. Positive recurrent vomiting is unclear. May require EGD since he's not able to maintain the oral contrast. Dense similar to a gastric outlet obstruction. Plan IV will be D5 normal saline 150 mils per hour as he appears dehydrated this time. Given Reglan 7.5 mg IV for nausea relief. - Re-Assessments/Exams Free Text/Narrative Re-Assessment/Exam: 06/19/18 13:41 chest x-ray done portably shows mildly hyperinflated lung aguilar. Cardiac silhouette is upper limits of normal with a tortuous thoracic aorta and prominent aortic knob. There is mild diffuse vascular congestion with no pleural effusions evident. Diaphragms are not elevated. Therefore lung sounds that I can hear gurgling on the right side appears to be bowel interposed between the liver and the diaphragm posteriorly that is identified on CT scan. 06/19/18 15:09 Labs are finally back. White count is normal at 5.83 with 41% neutrophils 2% bands and 54% lymphocytes reported. I.e. a right shift. Hemoglobin is low at 9.1 with hematocrit of 26.1. MCV is 92.2. Sedimentation rate is 15. PT is 12.1 with an INR 1.11. I could not find that he is anticoagulated with Coumadin although he is in chronic atrial fibrillation. Sodium is 140 with potassium of 3.7. Chloride 100 with a bicarbonate of 27. Anion gap is mildly elevated at 16.7. B1 is 23 with a creatinine of 1.8. GFR is 36 a stage III chronic kidney disease. Glucose is 151. Hemoglobin A1c is 6.5 indicating his blood sugars are well-controlled. Lactic acid is slightly elevated at 2.6. Calcium is 9.4 magnesium is 2.2 iron is 164 total iron binding capacity is 143-normal is 100-400 in our lab. Percent saturation is 1:15 which is actually high. Serum transferrin is low at 114. Serum ferritin is pending. Total bilirubin is 1.4 with an AST of 12 and ALT of 18. Alk phosphatase is 78. CK-MB fraction is 1.3 troponin I is less than 0.017. C-reactive protein is less than 0.2. BNP is mildly elevated at 930. Total protein 7.2 with an albumin fraction of 4.2.. B12 is pending as folic acid is pending. TSH is 1.407 normal. 06/19/18 15:16 Dr. 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 The hospitals is not keen on admitting him at this time of endoscopy is not going to be carried out and he would be better served by going to [facility]. I will therefore wait to speak with Dr. Moreno when he gets out of the OR. 06/19/18 15:49 M folic acid did return low at 5.0. B12 is normal at 812. Serum ferritin remains pending. I did speak with Dr. Morneo and he will come and speak with the patient. Dr. Moreno may be leaving town tomorrow and is reluctant to pursue upper GI endoscopy at this time. Decision will be therefore made whether or not the patient needs to be transferred to [facility] for a upper GI endoscopy to rule out gastric obstruction due to recurrent vomiting when he tries to eat. 06/19/18 16:55 Dr. Moreno did see the patient in consultation and felt that his abdomen is fairly benign at this time. He felt that an EGD and swallowing assessment may be necessary as an outpatient. Therefore the patient will be discharged back to the longterm. Follow-up is to be carried out with his primary care physician to arrange EGD as an outpatient procedure. 06/19/18 17:05 I had a discussion with his care or charge nurse at the longterm and she indicates that he doesn't vomit up every meal. He usually can keep down supper is usually morning and dinner meals that he might vomit. He lost 5- 8 pounds of weight in the last week. Patient has an insight into the fact that he takes his medications first thing in the morning and then often vomits after he tries to eat. Therefore it appears that medication is likely the cause of his recurrent vomiting. Therefore take a look at his medications and take away what he may not require. The plan at this time will be to allow him to go back to the longterm. If symptoms persist then he would be willing to have an outpatient EGD done. However if there was something wrong with his stomach such as a cancer he wouldn't want anything done. 06/19/18 17:19 with a look through his med list there are several meds that may or may not be causing his nausea first thing in the morning. I'm going to suggest at this time that his Ultram be placed on hold for 5 days. Also his Amatine is to be placed on hold for 1 week and his Aricept to be placed on hold for 1 week . The only other medication that might be causing nausea and vomiting in the morning is the Cymbalta. Her he would have to be weaned off of this medication. The other medication that may be causing nausea and vomiting of course is his potassium supplement which is Klor-Con 20 milk coven's twice a day. I would suggest this is only be given after he eats. Not on an empty stomach. Dr. Akbar can review them in a week's time and make an assessment as to whether not change in medication or with holding the above medications made a difference in his nausea or vomiting. Departure - Departure Time of Disposition: 16:56 Disposition: DC/Tfer to Assisted Care [facility] Condition: Fair Clinical Impression: Nausea and vomiting in adult patient, Adverse effects of medication - Discharge Information *PRESCRIPTION DRUG MONITORING PROGRAM REVIEWED*: Not Applicable *COPY OF PRESCRIPTION DRUG MONITORING REPORT IN PATIENT SAAD: Not Applicable Instructions: Nausea and Vomiting, Adult Referrals: PCP,None [Primary Care Provider] - Forms: ED Department Discharge Additional Instructions: Evaluation the emergency room was carried out today to try and establish why he you are experiencing intermittent nausea and vomiting usually first thing in the morning after receiving your morning medications. By time supper rolls around you're able to usually keeps the medial down. This is strongly suggestive that medication is the culprit in terms of making you sick and vomits first thing in the morning. I therefore have suggestions to place several of your medications on hold to see if you are better in the next week. They can be reintroduced if you are unimproved one at a time. All of the investigations done through the emergency room today were essentially normal. CT scan of the abdomen was performed this morning even though you can keep down the oral contrast and it did not show anything worrisome like cancer of the pancreas or cancer in your liver etc. We were not able to see the lining of the stomach very well however. Therefore at this time suggest tramadol be placed on hold. For one week. Soniya ties it to be placed on hold for 1 week. Aricept to be placed on hold for 1 week. And potassium supplement only be given after eating. - My Orders Last 24 Hours: My Active Orders 06/19/18 12:59 EKG Documentation Completion [RC] STAT 06/19/18 13:00 Dextrose 5%-0.9% NaCl [Dextrose 5%-Normal Saline] 1,000 ml IV ASDIRECTED Blood Culture x2 Reflex Set [OM.PC] Stat 06/19/18 13:03 Bladder Scan [RC] ASDIRECTED 06/19/18 13:16 CULTURE BLOOD [BC] Stat 06/19/18 13:25 CULTURE BLOOD [BC] Stat 06/19/18 16:55 HELICOBACTER PYLORI AB IGG [CHEM] Stat - Assessment/Plan Last 24 Hours: My Active Orders 06/19/18 12:59 EKG Documentation Completion [RC] STAT 06/19/18 13:00 Dextrose 5%-0.9% NaCl [Dextrose 5%-Normal Saline] 1,000 ml IV ASDIRECTED Blood Culture x2 Reflex Set [OM.PC] Stat 06/19/18 13:03 Bladder Scan [RC] ASDIRECTED 06/19/18 13:16 CULTURE BLOOD [BC] Stat 06/19/18 13:25 CULTURE BLOOD [BC] Stat 06/19/18 16:55 HELICOBACTER PYLORI AB IGG [CHEM] Stat
[2018-06-19] MEDS ORDERED: Dextrose 5%-0.9% NaCl 1,000 ML IV SCH (13:00)
[2018-06-19] MEDS ORDERED: Metoclopramide 10 MG/2 ML SDV IVPUSH ONE (13:35)
[2018-06-19 13:55] LABS: HEMOGLOBIN A1C 6.5 % (4.50-6.20)
--- NOTE | 2018-06-19 14:00 | CR ---
Chest: Portable view of the chest was obtained. Comparison: Prior chest x-ray of 04/01/18. Heart size is normal. Tortuous thoracic aorta is seen. Lungs are clear with no acute parenchymal change. Bony structures are osteopenic. Impression: 1. Incidental findings. Nothing acute is seen. Diagnostic code #2
--- NOTE | 2018-06-19 17:59 | PCM.CONS ---
H&P History of Present Illness - General Date of Service: 06/19/18 Source of Information: Patient, Provider History Limitations: Reports: No Limitations - History of Present Illness Initial Comments - Free Text/Narative: 87 yo male, presenting to the ED with nausea and vomiting. Patient has had intermittent vomiting for the past several months, which occurs less than once a week. Last episode at home was over a week ago. He did vomit in the ER after attempting to drink oral contrast. Denies any nausea currently. He was able to eat regular food for breakfast this morning. He claims that the vomiting is related to what types of foods he eats, but he wasn't able to clarify specifically. Last bowel movement was yesterday. He requires use of suppository once every 3 days in order to have a bowel movement. He is also complaining about constant mild lower abdominal pain, which has also been going for several months. When trying to clarify why he is seeking emergency care today, he states that he came with a friend and was in the area anyway. He received a dose of Reglan IV in the ED. CT scan of the abd/pelvis was also performed in the ED. Abdominal Pain Score (Numeric/FACES): 8 - Related Data Allergies/Adverse Reactions: Allergies Allergy/AdvReac Type Severity Reaction Status Date / Time No Known Allergies Allergy Verified 06/19/18 12:57 Home Medications: Home Meds Albuterol Sulfate [Proair Respiclick] 2 puff INH TID 04/13/15 [History] DULoxetine [Cymbalta] 60 mg PO DAILY 04/13/15 [History] Docusate Sodium [Colace] 200 mg PO BID 04/13/15 [History] Ferrous Sulfate 324 mg PO BEDTIME 04/13/15 [History] Acetaminophen 650 mg PO Q6H PRN 11/05/16 [History] Furosemide [Lasix] 20 mg PO DAILY PRN 04/23/17 [History] Menthol [Biofreeze] 1 applic TOP TID PRN 04/23/17 [History] Albuterol Sulfate 2.5 ml NEB Q8H PRN 06/23/17 [History] risperiDONE [RisperiDAL] 0.25 mg PO BEDTIME 06/23/17 [History] Insulin Lispro [Humalog Kwikpen U-100] 6 units SQ TID 08/03/17 [History] Magnesium Oxide 400 mg PO DAILY 08/03/17 [History] Polyvinyl Alcohol [LiquiTears 1.4% Ophth Soln] 2 drop EYEBOTH BID 08/03/17 [ History] Insulin Lispro [Humalog Kwikpen U-100] See Protocol SUBCUT TIDAC 01/07/18 [ History] Propylene Glycol/Peg 400 [Systane 0.3-0.4% Eye Drops] 1 drop EYEBOTH BID PRN [History] Furosemide 40 mg PO QPM 04/01/18 [History] Furosemide 60 mg PO QAM 04/01/18 [History] Menthol [Biofreeze] 1 applic TOP BID 04/01/18 [History] Omeprazole 40 mg PO ACBREAKFAST 04/01/18 [History] Phenyleph/Mineral Oil/Petrolat [Preparation H Ointment] 1 applic RECTAL BID PRN 04/01/18 [History] Potassium Chloride [Klor-Con M20] 20 meq PO BID 04/01/18 [History] Sennosides/Docusate Sodium [Senna Plus Tablet] 1 tab PO BID 04/01/18 [History] Tamsulosin HCl 0.4 mg PO BEDTIME 06/19/18 [History] Past Medical History HEENT History: Reports: Impaired Vision, Other (See Below) Other HEENT History: dry eyes Cardiovascular History: Reports: Afib (Chronically in atrial fibrillation. Currently not on anticoagulation.), CAD, Heart Failure, Hypertension, IA, Other (See Below) Other Cardiovascular History: Nonrheumatic aortic valve disorder, atherosclerotic heart disease Respiratory History: Reports: COPD (Does not require oxygen support.), Sleep Apnea, Other (See Below) Other Respiratory History: panlobular emphysema Gastrointestinal History: Reports: Chronic Constipation, GERD, Hemorrhoids Genitourinary History: Reports: BPH, Chronic Renal Insuffiency, Renal Calculus Musculoskeletal History: Reports: Back Pain, Chronic, Osteoarthritis Neurological History: Reports: Alzheimers Disease, Neuropathy, Diabetic, TIA Psychiatric History: Reports: Anxiety, Dementia, Depression Endocrine/Metabolic History: Reports: Diabetes, Type II (Controlled with metformin and insulin.) Hematologic History: Reports: Anemia, Iron Deficiency Other Hematologic History: myelodysplastic disease; chronic aquired pure red cell aplasia; hypomagnesemia Oncologic (Cancer) History: Reports: None Dermatologic History: Reports: Other (See Below) Other Dermatologic History: red groin folds calmoseptime applied - Infectious Disease History Infectious Disease History: Reports: MRSA Other Infectious Disease History: 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 - Past Surgical History Head Surgeries/Procedures: Reports: None HEENT Surgical History: Reports: Cataract Surgery GI Surgical History: Reports: Appendectomy, Cholecystectomy, Colonoscopy Musculoskeletal Surgical History: Reports: ORIF Social & Family History - Family History Family Medical History: Noncontributory Cardiac: Reports: IA Other Cardiac Family History: twin brother Hematologic: Reports: Anemia Oncologic: Reports: Hodgkin's Lymphoma, Leukemia, Lung - Tobacco Use Smoking Status *Q: Never Smoker - Caffeine Use Caffeine Use: Reports: Other Other Caffeine Use: unknown - Recreational Drug Use Recreational Drug Use: No - Living Situation & Occupation Living situation: Reports: , Extended Care Facility ([facility]) Occupation: Retired H&P Review of Systems - Review of Systems: Review Of Systems: ROS reveals no pertinent complaints other than HPI. Exam - Exam Exam: See Below - Vital Signs Vital Signs: Last Vital Signs Temp 36.5 C 06/19/18 12:50 Pulse 73 06/19/18 12:50 Resp 18 06/19/18 12:50 BP 126/74 06/19/18 12:50 Pulse Ox 95 06/19/18 12:50 Weight: 74.752 kg - Exam General: Alert, Oriented, Cooperative HEENT: Conjunctiva Clear Lungs: Clear to Auscultation, Normal Respiratory Effort Cardiovascular: Regular Rate, Regular Rhythm, Normal S1, Normal S2 GI/Abdominal Exam: Soft, No Distention, Tender (minimally tender in the lower abdomen. No peritoneal signs.) Extremities: Normal Inspection Neuro Extensive - Mental Status: Alert, Oriented x3, Normal Mood/Affect, Normal Cognition, Memory Intact Psychiatric: Normal Mood - Patient Data Lab Results Last 24 hrs: Laboratory Results - last 24 hr 06/19/18 06/19/18 06/19/18 Range/Units 13:13 13:13 13:16 WBC 5.83 (4.23-9.07) K/mm3 RBC 2.83 L (4.63-6.08) M/mm3 Hgb 9.1 L (13.7-17.5) gm/L Hct 26.1 L (40.1-51.0) % MCV 92.2 (79.0-92.2) fl MCH 32.2 (25.7-32.2) pg MCHC 34.9 (32.2-35.5) g/dl RDW Std Deviation 58.3 H (35.1-43.9) fL Plt Count 177 (163-337) K/mm3 MPV 11.2 (9.4-12.3) fl Neutrophils % (Manual) 41 (40-60) % Band Neutrophils % 2 (0-10) % Lymphocytes % (Manual) 54 H (20-40) % Atypical Lymphs % 0 % Monocytes % (Manual) 1 L (2-10) % Eosinophils % (Manual) 2 (0.8-7.0) % Basophils % (Manual) 0 L (0.2-1.2) Platelet Estimate Adequate Poikilocytosis 1+ slight Anisocytosis 1+ slight Ovalocytes 1+ slight Schistocytes Few RBC Morph Comment Not Reportable ESR (0-15) mm/hr PT (9.5-12.1) SECONDS INR Sodium (136-145) mEq/L Potassium (3.5-5.1) mEq/L Chloride (98-107) mEq/L Carbon Dioxide (21-32) mEq/L Anion Gap (5-15) BUN (7-18) mg/dL Creatinine (0.7-1.3) mg/dL Est Cr Clr Drug Dosing mL/min Estimated GFR (MDRD) (>60) mL/min BUN/Creatinine Ratio (14-18) Glucose (83-115) mg/dL Hemoglobin A1c (4.50-6.20) % Lactic Acid (0.4-2.0) mmol/L Calcium (8.5-10.1) mg/dL Magnesium (1.8-2.4) mg/dl Iron 164 (65-175) ug/dL TIBC 143 (100-400) ug/dL % Saturation 115 H (20-55) % Transferrin 114 L (202-364) mg/dL Ferritin 2077 H (26-388) ng/ml Total Bilirubin (0.2-1.0) mg/dL AST (15-37) U/L ALT (16-63) U/L Alkaline Phosphatase (46-116) U/L CK-MB (CK-2) (0-3.6) ng/ml Troponin I (0.00-0.056) ng/mL C-Reactive Protein (<1.0) mg/dL NT-Pro-B Natriuret Pep (0-450) pg/mL Total Protein (6.4-8.2) g/dl Albumin (3.4-5.0) g/dl Globulin gm/dL Albumin/Globulin Ratio (1-2) Vitamin B12 812 (193-986) pg/ml Folate 5.0 L (8.6-58.9) ng/mL TSH 3rd Generation (0.358-3.74) uIU/mL H. pylori IgG Antibody Negative (NEGATIVE) 06/19/18 06/19/18 06/19/18 Range/Units 13:16 13:16 13:16 WBC (4.23-9.07) K/mm3 RBC (4.63-6.08) M/mm3 Hgb (13.7-17.5) gm/L Hct (40.1-51.0) % MCV (79.0-92.2) fl MCH (25.7-32.2) pg MCHC (32.2-35.5) g/dl RDW Std Deviation (35.1-43.9) fL Plt Count (163-337) K/mm3 MPV (9.4-12.3) fl Neutrophils % (Manual) (40-60) % Band Neutrophils % (0-10) % Lymphocytes % (Manual) (20-40) % Atypical Lymphs % % Monocytes % (Manual) (2-10) % Eosinophils % (Manual) (0.8-7.0) % Basophils % (Manual) (0.2-1.2) Platelet Estimate Poikilocytosis Anisocytosis Ovalocytes Schistocytes RBC Morph Comment ESR 15 (0-15) mm/hr PT 12.1 (9.5-12.1) SECONDS INR 1.11 Sodium 140 (136-145) mEq/L Potassium 3.7 (3.5-5.1) mEq/L Chloride 100 (98-107) mEq/L Carbon Dioxide 27 (21-32) mEq/L Anion Gap 16.7 H (5-15) BUN 23 H (7-18) mg/dL Creatinine 1.8 H (0.7-1.3) mg/dL Est Cr Clr Drug Dosing 26.58 mL/min Estimated GFR (MDRD) 36 (>60) mL/min BUN/Creatinine Ratio 12.8 L (14-18) Glucose 151 H (83-115) mg/dL Hemoglobin A1c (4.50-6.20) % Lactic Acid (0.4-2.0) mmol/L Calcium 9.4 (8.5-10.1) mg/dL Magnesium 2.2 (1.8-2.4) mg/dl Iron (65-175) ug/dL TIBC (100-400) ug/dL % Saturation (20-55) % Transferrin (202-364) mg/dL Ferritin (26-388) ng/ml Total Bilirubin 1.4 H (0.2-1.0) mg/dL AST 12 L (15-37) U/L ALT 18 (16-63) U/L Alkaline Phosphatase 78 (46-116) U/L CK-MB (CK-2) 1.3 (0-3.6) ng/ml Troponin I < 0.017 (0.00-0.056) ng/mL C-Reactive Protein < 0.2 (<1.0) mg/dL NT-Pro-B Natriuret Pep (0-450) pg/mL Total Protein 7.2 (6.4-8.2) g/dl Albumin 4.2 (3.4-5.0) g/dl Globulin 3.0 gm/dL Albumin/Globulin Ratio 1.4 (1-2) Vitamin B12 (193-986) pg/ml Folate (8.6-58.9) ng/mL TSH 3rd Generation (0.358-3.74) uIU/mL H. pylori IgG Antibody (NEGATIVE) 06/19/18 06/19/18 06/19/18 Range/Units 13:16 13:16 13:16 WBC (4.23-9.07) K/mm3 RBC (4.63-6.08) M/mm3 Hgb (13.7-17.5) gm/L Hct (40.1-51.0) % MCV (79.0-92.2) fl MCH (25.7-32.2) pg MCHC (32.2-35.5) g/dl RDW Std Deviation (35.1-43.9) fL Plt Count (163-337) K/mm3 MPV (9.4-12.3) fl Neutrophils % (Manual) (40-60) % Band Neutrophils % (0-10) % Lymphocytes % (Manual) (20-40) % Atypical Lymphs % % Monocytes % (Manual) (2-10) % Eosinophils % (Manual) (0.8-7.0) % Basophils % (Manual) (0.2-1.2) Platelet Estimate Poikilocytosis Anisocytosis Ovalocytes Schistocytes RBC Morph Comment ESR (0-15) mm/hr PT (9.5-12.1) SECONDS INR Sodium (136-145) mEq/L Potassium (3.5-5.1) mEq/L Chloride (98-107) mEq/L Carbon Dioxide (21-32) mEq/L Anion Gap (5-15) BUN (7-18) mg/dL Creatinine (0.7-1.3) mg/dL Est Cr Clr Drug Dosing mL/min Estimated GFR (MDRD) (>60) mL/min BUN/Creatinine Ratio (14-18) Glucose (83-115) mg/dL Hemoglobin A1c (4.50-6.20) % Lactic Acid 2.6 H (0.4-2.0) mmol/L Calcium (8.5-10.1) mg/dL Magnesium (1.8-2.4) mg/dl Iron (65-175) ug/dL TIBC (100-400) ug/dL % Saturation (20-55) % Transferrin (202-364) mg/dL Ferritin (26-388) ng/ml Total Bilirubin (0.2-1.0) mg/dL AST (15-37) U/L ALT (16-63) U/L Alkaline Phosphatase (46-116) U/L CK-MB (CK-2) (0-3.6) ng/ml Troponin I (0.00-0.056) ng/mL C-Reactive Protein (<1.0) mg/dL NT-Pro-B Natriuret Pep 930 H (0-450) pg/mL Total Protein (6.4-8.2) g/dl Albumin (3.4-5.0) g/dl Globulin gm/dL Albumin/Globulin Ratio (1-2) Vitamin B12 (193-986) pg/ml Folate (8.6-58.9) ng/mL TSH 3rd Generation 1.407 (0.358-3.74) uIU/mL H. pylori IgG Antibody (NEGATIVE) 06/19/18 Range/Units 13:16 WBC (4.23-9.07) K/mm3 RBC (4.63-6.08) M/mm3 Hgb (13.7-17.5) gm/L Hct (40.1-51.0) % MCV (79.0-92.2) fl MCH (25.7-32.2) pg MCHC (32.2-35.5) g/dl RDW Std Deviation (35.1-43.9) fL Plt Count (163-337) K/mm3 MPV (9.4-12.3) fl Neutrophils % (Manual) (40-60) % Band Neutrophils % (0-10) % Lymphocytes % (Manual) (20-40) % Atypical Lymphs % % Monocytes % (Manual) (2-10) % Eosinophils % (Manual) (0.8-7.0) % Basophils % (Manual) (0.2-1.2) Platelet Estimate Poikilocytosis Anisocytosis Ovalocytes Schistocytes RBC Morph Comment ESR (0-15) mm/hr PT (9.5-12.1) SECONDS INR Sodium (136-145) mEq/L Potassium (3.5-5.1) mEq/L Chloride (98-107) mEq/L Carbon Dioxide (21-32) mEq/L Anion Gap (5-15) BUN (7-18) mg/dL Creatinine (0.7-1.3) mg/dL Est Cr Clr Drug Dosing mL/min Estimated GFR (MDRD) (>60) mL/min BUN/Creatinine Ratio (14-18) Glucose (83-115) mg/dL Hemoglobin A1c 6.50 H (4.50-6.20) % Lactic Acid (0.4-2.0) mmol/L Calcium (8.5-10.1) mg/dL Magnesium (1.8-2.4) mg/dl Iron (65-175) ug/dL TIBC (100-400) ug/dL % Saturation (20-55) % Transferrin (202-364) mg/dL Ferritin (26-388) ng/ml Total Bilirubin (0.2-1.0) mg/dL AST (15-37) U/L ALT (16-63) U/L Alkaline Phosphatase (46-116) U/L CK-MB (CK-2) (0-3.6) ng/ml Troponin I (0.00-0.056) ng/mL C-Reactive Protein (<1.0) mg/dL NT-Pro-B Natriuret Pep (0-450) pg/mL Total Protein (6.4-8.2) g/dl Albumin (3.4-5.0) g/dl Globulin gm/dL Albumin/Globulin Ratio (1-2) Vitamin B12 (193-986) pg/ml Folate (8.6-58.9) ng/mL TSH 3rd Generation (0.358-3.74) uIU/mL H. pylori IgG Antibody (NEGATIVE) Result Diagrams: 06/19/18 13:16 06/19/18 13:16 Consult PN Assessment/Plan Procedures: Procedures AGENT NOS ASSAY W/OPTIC (04/23/17) AIRWAY INHALATION TREATMENT (04/01/18) ASSAY GLUCOSE BLOOD QUANT (04/23/17) ASSAY OF FOLIC ACID RBC (01/30/16) ASSAY OF FOLIC ACID SERUM (04/23/17) ASSAY OF IRON (04/23/17) ASSAY OF LACTIC ACID (04/01/18) ASSAY OF MAGNESIUM (04/01/18) ASSAY OF NATRIURETIC PEPTIDE (04/01/18) ASSAY OF PHOSPHORUS (04/13/15) ASSAY OF TRANSFERRIN (04/23/17) ASSAY OF TROPONIN QUANT (04/01/18) ASSAY OF VANCOMYCIN (04/23/17) ASSAY THYROID STIM HORMONE (04/01/18) BL SMEAR W/DIFF WBC COUNT (04/01/18) BLOOD CULTURE FOR BACTERIA (04/01/18) BLOOD GASES ANY COMBINATION (08/04/17) BLOOD TRANSFUSION SERVICE (05/30/18) BLOOD TYPING SEROLOGIC ABO (05/30/18) BLOOD TYPING SEROLOGIC RH(D) (05/30/18) C DIFF AMPLIFIED PROBE (06/23/17) C-REACTIVE PROTEIN (04/01/18) CHEST WALL MANIPULATION (06/23/17) CHEST WALL MANIPULATION (04/23/17) CHEST WALL MANIPULATION (12/08/16) CHEST X-RAY 1 VIEW FRONTAL (12/08/16) CHYLMD PNEUM DNA AMP PROBE (06/23/17) COMPATIBILITY TEST ANTIGLOB (05/30/18) COMPLETE CBC AUTOMATED (04/01/18) COMPLETE CBC W/AUTO DIFF WBC (04/01/18) COMPREHEN METABOLIC PANEL (04/01/18) CT ABD & PELV W/CONTRAST (06/23/17) CT HEAD/BRAIN W/O DYE (01/06/18) CT THORAX W/DYE (06/23/17) CULTURE AEROBIC IDENTIFY (12/08/16) CULTURE OTHR SPECIMN AEROBIC (06/23/17) CULTURE SCREEN ONLY (05/01/17) DETECT AGENT NOS DNA AMP (06/23/17) ECG MONIT/REPRT UP TO 48 HRS (04/04/18) ECG MONIT/REPRT UP TO 48 HRS (04/04/18) ELECTROCARDIOGRAM TRACING (04/01/18) EMERGENCY DEPT VISIT (04/01/18) EMERGENCY DEPT VISIT (09/08/15) EMERGENCY DEPT VISIT (04/13/15) EVALUATE PT USE OF INHALER (01/06/18) EXTREMITY STUDY (08/04/17) FIBRIN DEGRADATION QUANT (04/01/18) FUNGI IDENTIFICATION YEAST (12/08/16) GAIT TRAINING THERAPY (01/30/16) GLUCOSE BLOOD TEST (04/29/18) GLYCOSYLATED HEMOGLOBIN TEST (08/04/17) HEMATOCRIT (04/23/17) HEMOGLOBIN (04/23/17) HYDRATE IV INFUSION ADD-ON (06/23/17) INFLUENZA ASSAY W/OPTIC (08/04/17) INSERT TEMP BLADDER CATH (04/01/18) LIPID PANEL (04/23/17) M.PNEUMON DNA AMP PROBE (06/23/17) MANUAL THERAPY 1/> REGIONS (04/23/17) MEASURE BLOOD OXYGEN LEVEL (04/01/18) MEASURE BLOOD OXYGEN LEVEL (04/01/18) MEASURE BLOOD OXYGEN LEVEL (01/06/18) MEASURE BLOOD OXYGEN LEVEL (01/06/18) MEASURE BLOOD OXYGEN LEVEL (06/23/17) MEASURE BLOOD OXYGEN LEVEL (06/23/17) MEASURE BLOOD OXYGEN LEVEL (04/23/17) MEASURE BLOOD OXYGEN LEVEL (12/08/16) MEASURE BLOOD OXYGEN LEVEL (12/08/16) MEASURE BLOOD OXYGEN LEVEL (01/30/16) METABOLIC PANEL TOTAL CA (04/01/18) MICROBE SUSCEPTIBLE PROSPER (01/06/18) MR-STAPH DNA AMP PROBE (04/01/18) MYCOPLASMA ANTIBODY (06/23/17) OCCULT BLD FECES 1-3 TESTS (06/23/17) OCCULT BLOOD FECES (04/23/17) OT EVAL HIGH COMPLEX 60 MIN (12/08/16) OT EVAL LOW COMPLEX 30 MIN (08/04/17) OT EVAL MOD COMPLEX 45 MIN (01/06/18) OT EVALUATION (01/30/16) POLYSOM 6/> YRS 4/> NAZ (12/10/15) PROTHROMBIN TIME (04/01/18) PT EVAL LOW COMPLEX 20 MIN (01/06/18) PT EVAL MOD COMPLEX 30 MIN (06/23/17) PT EVALUATION (01/30/16) RBC ANTIBODY SCREEN (05/30/18) RESP VIRUS 12-25 TARGETS (06/23/17) ROUTINE VENIPUNCTURE (05/30/18) SELF CARE MNGMENT TRAINING (01/30/16) SMEAR GRAM STAIN (06/23/17) STREP A AG IA (05/01/17) THER/PROPH/DIAG INJ IV PUSH (04/29/18) THER/PROPH/DIAG INJ SC/IM (08/04/17) THER/PROPH/DIAG IV INF ADDON (04/23/17) THER/PROPH/DIAG IV INF INIT (06/23/17) THERAPEUTIC ACTIVITIES (01/06/18) THERAPEUTIC EXERCISES (01/06/18) THROMBOPLASTIN TIME PARTIAL (08/04/17) TISSUE EXAM BY PATHOLOGIST (01/30/16) TISSUE EXAM BY PATHOLOGIST (11/16/14) TTE W/DOPPLER COMPLETE (06/23/17) TX/PRO/DX INJ NEW DRUG ADDON (08/04/17) TX/PRO/DX INJ SAME DRUG OPHTHALMIC TECHNICIAN APPRENTICE (04/29/18) URINALYSIS AUTO W/SCOPE (04/01/18) URINE BACTERIA CULTURE (01/06/18) URINE CULTURE/COLONY COUNT (01/06/18) VITAMIN B-12 (04/23/17) WITHDRAWAL OF ARTERIAL BLOOD (08/04/17) X-RAY EXAM CHEST 1 VIEW (04/01/18) X-RAY EXAM CHEST 2 VIEWS (06/23/17) X-RAY EXAM HIP UNI 2-3 VIEWS (11/05/16) X-RAY EXAM OF ABDOMEN (01/30/16) (1) Nausea and vomiting in adult patient SNOMED Code(s): 98025173 Code(s): R11.2 - NAUSEA WITH VOMITING, UNSPECIFIED Current Visit: Yes Problem List Initiated/Reviewed/Updated: Yes Plan: 87 yo male, h/o multiple medical problems, including CAD, HTN, afib (not on anticoagulation), diastolic heart failure, chronic renal failure, Alzheimers disease, DM2, HLD, BPH, COPD, AGNES, GERD, chronic constipation, presenting with mild intermittent nausea/emesis. No concerning findings on physical exam. - CT scan Abd/Pelvis images and radiology report were reviewed. No acute findings appreciated. - If patient's symptoms continue, would recommend outpatient work-up, which can include UGI and endoscopy. However, when I asked the patient if he would desire further aggressive measures, he did refuse this. Patient is DNR and lives in nursing facility. - No need for inpatient care or urgent surgical intervention at this time. Case d/w Dr. Fitzgerald, ER physician. Sabino Aguilar M.D ([facility])., F.A.C.S. General Surgery
== END 2018-06-19 17:45 ==
LOC: JD.ED 12:34
DX: R11.2 Nausea with vomiting, unspecified (principal); T50.905A Adverse effect of unspecified drugs, medicaments and biological substances, initial encounter; I48.91 Unspecified atrial fibrillation; I11.0 Hypertensive heart disease with heart failure; I50.9 Heart failure, unspecified; F41.9 Anxiety disorder, unspecified; F32.9 Major depressive disorder, single episode, unspecified; E11.9 Type 2 diabetes mellitus without complications; Z79.899 Other long term (current) drug therapy; Z79.4 Long term (current) use of insulin
CPT/HCPCS: 36415; 71045; 80053; 82553; 82607; 82728; 82746; 83036; 83540; 83605; 83735; 83880; 84443; 84466; 84484; 85007; 85027; 85610; 85652; 86140; 86677; 87040; 93005; 96361; 96374; 99285; J2765; J7042; 93010; 99284